=== PATIENT | male | born 1945 | race Caucasian/White ===

== ENCOUNTER 2016-08-21 08:48 | Emergency (ER) | payer MEDICARE, OTHER ==
[2016-08-21 08:55] VITALS: BP 131/59
--- NOTE | 2016-08-21 09:11 | ED Physician Documentation ---
PD HPI URI - Stated complaint Stated Complaint: COUGH - Chief complaint Chief Complaint: Resp - History obtained from History obtained from: Patient, Family - History of Present Illness Timing - onset: How many days ago (4) Timing duration: Days (4) Timing details: Gradual onset, Still present Associated symptoms: Nasal congestion, Rhinorrhea, Productive cough, Dyspnea. No: Fever Contributing factors: COPD / asthma Improves by: Rest, MDI/nebulizer Worsened by: Activity Similar symptoms before: Diagnosis (COPD) Recently seen: Clinic (Seen by the dermatology clinic and put on medication for a redness on his chest.) - Additional information Additional information: 71 y/o male with a history of COPD has began to have coughing since the beginning of July. He had to get his inhaler refilled as it and he was not using it. He has been using it up to 3 times per day. He has a cough productive of mostly clear and sometimes colored sputum and he has developed pain in both ears in the past 2 days. Review of Systems Constitutional: denies: Fever Eyes: denies: Decreased vision Ears: reports: Ear pain Nose: reports: Rhinorrhea / runny nose, Congestion Throat: denies: Sore throat Cardiac: denies: Chest pain / pressure, Palpitations Respiratory: reports: Dyspnea, Cough GI: denies: Abdominal Pain, Nausea, Vomiting : denies: Dysuria Skin: reports: Rash Musculoskeletal: denies: Neck pain PD PAST MEDICAL HISTORY - Past Medical History Past Medical History: Yes Cardiovascular: Hypertension, High cholesterol Neuro: Peripheral neuropathy Endocrine/Autoimmune: Type 2 diabetes - Past Surgical History Past Surgical History: Yes Cardiovascular: Coronary stent HEENT: Cataracts - Present Medications Home Medications: Ambulatory Orders Medication Instructions Recorded Confirmed Aspirin [Aspir 81] 81 mg PO DAILY 11/07/12 08/21/16 Carvedilol [Coreg] 25 mg PO BID 11/07/12 08/21/16 Clonidine HCl [Kapvay] 0.1 mg PO DAILY 11/07/12 08/21/16 DULoxetine [Cymbalta] 60 mg PO DAILY 11/07/12 08/21/16 Furosemide [Lasix] 40 mg PO QAM 11/07/12 08/21/16 Levothyroxine [Synthroid] 25 mcg PO QDAC 11/07/12 08/21/16 Loratadine [Children's 10 mg PO DAILY 11/07/12 08/21/16 Clear-Atadine] Losartan Potassium [Cozaar] 50 mg PO DAILY 11/07/12 08/21/16 Omeprazole [PriLOSEC] 20 mg PO DAILY 11/07/12 08/21/16 Potassium Chloride 20 meq PO TITR 11/07/12 08/21/16 Albuterol [Ventolin Hfa] 2 puffs INH Q4H PRN 04/01/15 08/21/16 Gabapentin 1,200 mg ORAL QPM 04/01/15 08/21/16 HYDROcod/ACETAM 5/325 [Vicodin 1 - 2 tab ORAL Q4H PRN 04/01/15 08/21/16 5/325] amLODIPine [Norvasc] 5 mg ORAL DAILY 04/01/15 08/21/16 Atorvastatin [Lipitor] 40 mg PO DAILY 05/29/15 08/21/16 Insulin Glargine,Hum.rec.anlog 70 units SQ DAILY 05/29/15 08/21/16 [Lantus] diazePAM [Valium] 5 mg PO TID PRN #15 tablet 05/29/15 08/21/16 Azithromycin [Zithromax] 250 mg PO DAILY #6 tablet 08/21/16 predniSONE [Deltasone] 10 mg PO DAILY #26 tablet 08/21/16 - Allergies Allergies/Adverse Reactions: Allergies Allergy/AdvReac Type Severity Reaction Status Date / Time pregabalin [From Lyrica] Allergy Intermediate unknown Verified 11/19/15 15:09 simvastatin [From Zocor] Allergy Intermediate Nausea Verified 11/19/15 15:09 sulfamethoxazole Allergy Intermediate unknown Verified 11/19/15 15:09 [From Septra] trimethoprim [From Septra] Allergy Intermediate unknown Verified 11/19/15 15:09 tetracycline [Tetracycline] Allergy Rash Verified 11/19/15 15:09 - Social History Does the pt smoke?: No Smoking Status: Former smoker Does the pt drink ETOH?: No Does the pt have substance abuse?: No - Immunizations Immunizations are current?: Yes - POLST Patient has POLST: No PD ED PE NORMAL - Vitals Vital signs reviewed: Yes (normal ) - General General: Alert and oriented X 3, No acute distress, Well developed/nourished - HEENT HEENT: Atraumatic, PERRL, EOMI, Other (both TM's are inflamed in the attic and the right more so than the left. mucous membranes are dry. ) - Neck Neck: Supple, no meningeal sign, No bony TTP - Cardiac Cardiac: RRR, No murmur - Respiratory Respiratory: No respiratory distress, Other (diminished breath sounds bilaterally ) - Derm Derm: Normal color, Warm and dry, No rash - Extremities Extremities: No deformity - Neuro Neuro: No motor deficit, No sensory deficit - Psych Psych: Normal mood, Normal affect Results - Vitals Vitals: Vital Signs - 24 hr 08/21/16 08:52 Temperature 36.0 C L Heart Rate 87 Respiratory 22 Rate Blood Pressure 131/59 H O2 Saturation 100 Oxygen O2 Source Room air PD MEDICAL DECISION MAKING - ED course Complexity details: reviewed old records, considered differential, d/w patient, d/w family ED course: 71 y/o male with a history of COPD has developed a cough and shortness of breath. He does not usually have to use his inhaler much and he has started to use it again. On exam today he has some wheeze and BOM. He is given an script for prednisone and zithromax. Departure - Departure Disposition: 01 Home, Self Care Clinical Impression: COPD exacerbation Otitis media Qualifiers: Otitis media type: suppurative Laterality: bilateral Chronicity: acute Recurrence: not specified as recurrent Spontaneous tympanic membrane rupture: without spontaneous rupture Qualified Code(s): H66.003 - Acute suppurative otitis media without spontaneous rupture of ear drum, bilateral Condition: Stable Instructions: ED Otitis Media Acute Adult, ED COPD Flare Follow-Up: Valeria Cabrales MD [Primary Care Provider] - Prescriptions: predniSONE [Deltasone] 10 mg PO DAILY #26 tablet Azithromycin [Zithromax] 250 mg PO DAILY #6 tablet
== END 2016-08-21 09:22 | disposition home or self-care (01) ==
LOC: ED 08:48
DX: J44.1 Chronic obstructive pulmonary disease with (acute) exacerbation (principal); H66.003 Acute suppurative otitis media without spontaneous rupture of ear drum, bilateral; I10 Essential (primary) hypertension; E11.9 Type 2 diabetes mellitus without complications; Z79.4 Long term (current) use of insulin; Z79.82 Long term (current) use of aspirin; Z87.891 Personal history of nicotine dependence
CPT/HCPCS: 99283; 99284

== ENCOUNTER 2016-08-24 07:50 | Emergency (ER) | payer MEDICARE, OTHER ==
[2016-08-24] MEDS ORDERED: IPRATROPIUM/ALBUTEROL 3 ML NEB INH STA (08:53)
[2016-08-24] MEDS ORDERED: BENZONATATE 100 MG CAPSULE PO STA (08:53)
[2016-08-24] MEDS ORDERED: BENZONATATE 100 MG CAPSULE PO ONE (08:56)
--- NOTE | 2016-08-24 09:01 | ED Physician Documentation ---
PD HPI DYSPNEA - Stated complaint Stated Complaint: CONGESTION/COUGH/SOA - Chief complaint Chief Complaint: Resp - History obtained from History obtained from: Patient, Family - History of Present Illness Timing - onset: How many weeks ago (4) Timing - onset during: Rest Timing - duration: Weeks (4) Timing - details: Gradual onset, Still present Inciting event(s): URI Improved by: Inhaler/neb, Steroids Worsened by: Coughing Associated symptoms: Cough, Wheezing, Chest pain / discomfort Similar symptoms before: Diagnosis (COPD) Recently seen: Emergency Dept (Seen in the ED 5 days ago with this cough.) - Additional information Additional information: 71 y/o male with history of COPD with a recent exacerbation related to URI with OM has not responded to a course of prednisone and zithromax and his primary complaint today is the cough itself. He has not been able to sleep and and he has not been able to breath well. He did use his neb machine. Review of Systems Constitutional: denies: Fever Eyes: denies: Decreased vision Ears: reports: Ear pain Nose: reports: Rhinorrhea / runny nose, Congestion Throat: denies: Sore throat Cardiac: reports: Chest pain / pressure, Pedal edema. denies: Palpitations Respiratory: reports: Dyspnea, Cough, Wheezing GI: denies: Abdominal Pain, Nausea, Vomiting : denies: Dysuria, Frequency Skin: denies: Rash Musculoskeletal: denies: Neck pain, Back pain PD PAST MEDICAL HISTORY - Past Medical History Past Medical History: Yes Cardiovascular: Hypertension, High cholesterol Neuro: Peripheral neuropathy Endocrine/Autoimmune: Type 2 diabetes - Past Surgical History Past Surgical History: Yes Cardiovascular: Coronary stent HEENT: Cataracts - Present Medications Home Medications: Ambulatory Orders Medication Instructions Recorded Confirmed Aspirin [Aspir 81] 81 mg PO DAILY 11/07/12 08/24/16 Carvedilol [Coreg] 25 mg PO BID 11/07/12 08/24/16 Clonidine HCl [Kapvay] 0.1 mg PO DAILY 11/07/12 08/24/16 DULoxetine [Cymbalta] 60 mg PO DAILY 11/07/12 08/24/16 Furosemide [Lasix] 40 mg PO QAM 11/07/12 08/24/16 Levothyroxine [Synthroid] 25 mcg PO QDAC 11/07/12 08/24/16 Loratadine [Children's 10 mg PO DAILY 11/07/12 08/24/16 Clear-Atadine] Losartan Potassium [Cozaar] 50 mg PO DAILY 11/07/12 08/24/16 Omeprazole [PriLOSEC] 20 mg PO DAILY 11/07/12 08/24/16 Potassium Chloride 20 meq PO TITR 11/07/12 08/24/16 Albuterol [Ventolin Hfa] 2 puffs INH Q4H PRN 04/01/15 08/24/16 Gabapentin 1,200 mg ORAL QPM 04/01/15 08/24/16 HYDROcod/ACETAM 5/325 [Vicodin 1 - 2 tab ORAL Q4H PRN 04/01/15 08/24/16 5/325] amLODIPine [Norvasc] 5 mg ORAL DAILY 04/01/15 08/24/16 Atorvastatin [Lipitor] 40 mg PO DAILY 05/29/15 08/24/16 Insulin Glargine,Hum.rec.anlog 70 units SQ DAILY 05/29/15 08/24/16 [Lantus] diazePAM [Valium] 5 mg PO TID PRN #15 tablet 05/29/15 08/24/16 Azithromycin [Zithromax] 250 mg PO DAILY #6 tablet 08/21/16 08/24/16 predniSONE [Deltasone] 10 mg PO DAILY #26 tablet 08/21/16 08/24/16 Amox/Clav 875/125 [Augmentin] 1 each PO Q12H #20 tablet 08/24/16 Benzonatate [Tessalon] 100 - 200 mg PO TID PRN #20 capsule 08/24/16 HYDROcod/ACETAM 5/325 [[place] 5/325] 1 - 2 ea PO Q6H PRN #15 tablet 08/24/16 Ipratropium/Albuterol [Duoneb] 3 ml INH Q6H PRN #20 neb 08/24/16 - Allergies Allergies/Adverse Reactions: Allergies Allergy/AdvReac Type Severity Reaction Status Date / Time pregabalin [From Lyrica] Allergy Intermediate unknown Verified 11/19/15 15:09 simvastatin [From Zocor] Allergy Intermediate Nausea Verified 11/19/15 15:09 sulfamethoxazole Allergy Intermediate unknown Verified 11/19/15 15:09 [From Septra] trimethoprim [From Septra] Allergy Intermediate unknown Verified 11/19/15 15:09 tetracycline [Tetracycline] Allergy Rash Verified 11/19/15 15:09 - Social History Does the pt smoke?: No Smoking Status: Former smoker Does the pt drink ETOH?: No Does the pt have substance abuse?: No - Immunizations Immunizations are current?: Yes - POLST Patient has POLST: No PD ED PE NORMAL - Vitals Vital signs reviewed: Yes (hypertensive ) - General General: Well developed/nourished, Other (The patient has some resting tachypnea ) - HEENT HEENT: Atraumatic, PERRL, EOMI, Other (both TM's are still erythematous with indisitnct landmarks. ) - Neck Neck: Supple, no meningeal sign, No bony TTP - Cardiac Cardiac: RRR, No murmur - Respiratory Respiratory: No respiratory distress, Other (diminished breath sounds with scattered wheezes) - Abdomen Abdomen: Soft, Non tender, Other (protuberant) - Back Back: No CVA TTP, No spinal TTP - Derm Derm: Normal color, Warm and dry, No rash - Extremities Extremities: No deformity, Other (there is trace edema bilaterally ) - Neuro Neuro: No motor deficit, No sensory deficit - Psych Psych: Normal mood, Normal affect Results - Vitals Vitals: Vital Signs - 24 hr 08/24/16 08/24/16 08/24/16 07:57 09:12 10:07 Temperature 36.4 C L Heart Rate 90 90 85 Respiratory 24 22 17 Rate Blood Pressure 157/92 H 144/79 H O2 Saturation 94 98 08/24/16 10:59 Temperature Heart Rate 86 Respiratory 19 Rate Blood Pressure 151/93 H O2 Saturation 97 Oxygen O2 Source Room air - Rads (name of study) 2 veiw chest Radiology: Prelim report reviewed (IMPRESSION: Normal 2-view chest radiography) , EMP read indepedently, See rad report PD MEDICAL DECISION MAKING - ED course Complexity details: reviewed old records, reviewed results, re-evaluated patient , considered differential, d/w patient, d/w family ED course: 71 y/o male with a cough and congestion and hx of COPD is not responding to treatment with zithromax and prednisone and has a cough that is hurting his chest and interfering with his sleep. On exam his ears do not appear improved, consistent with a treatment failure and his chest wall is tender. He is given a duo neb treatment and tessalon and his CXR is without infiltrate. He will need a change in antibiotic and pain medication. He is given morphine for the chest wall pain and this does help. Departure - Departure Disposition: 01 Home, Self Care Clinical Impression: COPD exacerbation Otitis media Qualifiers: Otitis media type: suppurative Laterality: bilateral Chronicity: acute Recurrence: not specified as recurrent Spontaneous tympanic membrane rupture: without spontaneous rupture Qualified Code(s): H66.003 - Acute suppurative otitis media without spontaneous rupture of ear drum, bilateral Condition: Stable Instructions: ED Otitis Media Acute Adult, ED COPD Flare Follow-Up: Valeria Cabrales MD [Primary Care Provider] - Prescriptions: Amox/Clav 875/125 [Augmentin] 1 each PO Q12H #20 tablet Ipratropium/Albuterol [Duoneb] 3 ml INH Q6H PRN #20 neb PRN Reason: soa HYDROcod/ACETAM 5/325 [[place] 5/325] 1 - 2 ea PO Q6H PRN #15 tablet PRN Reason: Pain Benzonatate [Tessalon] 100 - 200 mg PO TID PRN #20 capsule PRN Reason: Cough Discharge Date/Time: 08/24/16 11:00
[2016-08-24] MEDS ORDERED: IPRATROPIUM/ALBUTEROL 3 ML NEB INH ONE (09:04)
--- NOTE | 2016-08-24 09:16 | XRAY Preliminary Report ---
Exam: XR Chest 2 View PA/LAT IMPRESSION: Normal 2-view chest radiography. [facility] SITE ID: [id number]
--- NOTE | 2016-08-24 09:19 | XRAY Report ---
EXAM: CHEST RADIOGRAPHY EXAM DATE: 08/24/2016 09:08 AM. CLINICAL HISTORY: Cough dyspnea. COMPARISON: 05/29/2015. TECHNIQUE: 2 views. FINDINGS: Lungs/Pleura: No focal opacities evident. No pleural effusion. No pneumothorax. Normal volumes. Mediastinum: Heart and mediastinal contours are unremarkable. Other: None. IMPRESSION: Normal 2-view chest radiography. [facility] Referring Provider Line: [phone] SITE ID: [id number]
[2016-08-24] MEDS ORDERED: MORPHINE 2 MG/ML SYRINGE IM STA (09:55)
[2016-08-24] MEDS ORDERED: MORPHINE 10 MG/ML VIAL ONE (10:04)
[2016-08-24 10:59] VITALS: BP 151/93
== END 2016-08-24 11:00 | disposition home or self-care (01) ==
LOC: ED 07:50
DX: J44.1 Chronic obstructive pulmonary disease with (acute) exacerbation (principal); H66.003 Acute suppurative otitis media without spontaneous rupture of ear drum, bilateral; J06.9 Acute upper respiratory infection, unspecified; I10 Essential (primary) hypertension; E11.42 Type 2 diabetes mellitus with diabetic polyneuropathy; Z95.5 Presence of coronary angioplasty implant and graft; Z79.82 Long term (current) use of aspirin; Z79.4 Long term (current) use of insulin; Z87.891 Personal history of nicotine dependence
CPT/HCPCS: 71020; 94640; 94664; 96372; 99283; 99284; A9270; J7620

== ENCOUNTER 2016-09-14 11:46 | Outpatient (CLI) | payer MEDICARE, OTHER ==
--- NOTE | 2016-09-14 13:40 | XRAY Report ---
TWO VIEW LUMBAR SPINE: 09/14/2016 CLINICAL INDICATION: Pain. FINDINGS: Frontal and lateral views of the lumbar spine are compared to previous films of 02/09/2009 . There is progression of degenerative disk and facet disease, with disk space narrowing worst at L5-S1 . There is no evidence of acute fracture or subluxation. Vascular calcifications are noted. The bowel gas pattern appears unremarkable. IMPRESSION: PROGRESSION OF DEGENERATIVE DISK AND FACET DISEASE. NO EVIDENCE OF FRACTURE. JOB #: [id number] EXT JOB #:[id number]
== END 2016-09-14 11:47 | disposition home or self-care (01) ==
LOC: DI 11:46
DX: M51.36 Other intervertebral disc degeneration, lumbar region (principal); M47.896 Other spondylosis, lumbar region
CPT/HCPCS: 72100

== ENCOUNTER 2016-09-17 11:07 | Outpatient (CLI) | payer MEDICARE, OTHER ==
--- NOTE | 2016-09-17 16:48 | XRAY Report ---
CHEST PA AND LATERAL: 09/17/2016 CLINICAL HISTORY: The patient has had a cough times one month. COMPARISON: 05/29/2015 and 08/24/2016. FINDINGS: Mild anterior spurring is suggested in the thoracic spine. Normal cardiac size is seen with minor vascular calcification in the aortic arch. Mild pleural thickening is seen silhouetting the anterior aspect of the 4th, 5th and 6th ribs. This m inimal pleural thickening silhouetting these ribs is nonspecific. Occasionally it can be a subtle sig n of prior asbestos exposure. Minimal interstitial parenchymal disease is once again noted in the mid to lower lung guo in association with mild elevation of each hemidiaphragm. The findings are cons istent with mild atelectasis and/or minimal scarring. IMPRESSION: 1. MILD INCREASE IN NONSPECIFIC PLEURAL THICKENING ACCOMPANYING THE ANTERIOR ASPECTS OF THE RIBS BILA TERALLY. 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 2. MINOR INTERSTITIAL PARENCHYMAL DISEASE IS ONCE AGAIN SEEN IN THE LOWER LOBES AND MID LUNG GUO C ONSISTENT WITH MILD ATELECTASIS AND/OR SCARRING. THE FINDINGS ARE UNCHANGED COMPARED TO PRECEDING EXAM DATED 08/24/2016. JOB #: [id number] EXT JOB #:[id number]
== END 2016-09-17 11:08 | disposition home or self-care (01) ==
LOC: DI 11:07
PROVIDERS: ATTEND Internal Medicine
DX: R05 Cough (principal)
CPT/HCPCS: 71020

== ENCOUNTER 2016-09-19 08:00 | Emergency (ER) | payer MEDICARE, OTHER ==
[2016-09-19] MEDS ORDERED: INSULIN REGULAR HUMAN 100 UNIT/1 ML 10 ML MDV IVP STA (08:26)
[2016-09-19] MEDS ORDERED: SODIUM CHLORIDE 0.9% 1,000 ML IV ONE ×2 (08:26→09:47)
[2016-09-19] MEDS ORDERED: MORPHINE 2 MG/ML SYRINGE IVP STA ×2 (08:27→09:53)
--- NOTE | 2016-09-19 08:30 | ED Physician Documentation ---
PD HPI CHEST PAIN - Stated complaint Stated Complaint: CHEST DISCOMFORT/COUGH - Chief complaint Chief Complaint: Resp - History obtained from History obtained from: Patient - History of Present Illness Timing - onset: Today Timing - onset during: Rest Timing - duration: Hours Timing - details: Gradual onset, Still present Quality: Sharp, Pain Location: Left chest Radiation: No: Jaw, Neck, Back, Abdominal, Left upper extremity, Right upper extremity Improved by: Rest Worsened by: Inspiration, Movement, Palpation, Position Associated symptoms: Shortness of air Similar symptoms before: Diagnosis (chest wall tenderness) Recently seen: Clinic, Emergency Dept - Additional information Additional information: 71 y/o male diabetic with COPD has had a cough and congestion last month with OM has continued to have trouble with secretions. He has cleared his ears up and is just finishing a course of prednisone. Today he has chest wall pain and appears to dehydrated complaining of a dry mouth and dizziness. Review of Systems Constitutional: reports: Fatigue. denies: Fever, Chills, Myalgias Eyes: denies: Decreased vision Ears: denies: Ear pain Nose: denies: Rhinorrhea / runny nose, Congestion Throat: denies: Sore throat Cardiac: reports: Chest pain / pressure. denies: Palpitations Respiratory: reports: Dyspnea, Cough GI: denies: Abdominal Pain, Nausea, Vomiting : denies: Dysuria, Frequency Skin: denies: Rash Musculoskeletal: denies: Neck pain, Back pain, Extremity pain, Extremity swelling Neurologic: denies: Generalized weakness, Focal weakness, Numbness PD PAST MEDICAL HISTORY - Past Medical History Cardiovascular: Hypertension, High cholesterol Neuro: Peripheral neuropathy Endocrine/Autoimmune: Type 2 diabetes - Past Surgical History Past Surgical History: Yes Cardiovascular: Coronary stent HEENT: Cataracts - Present Medications Home Medications: Ambulatory Orders Medication Instructions Recorded Confirmed Aspirin [Aspir 81] 81 mg PO DAILY 11/07/12 09/19/16 Carvedilol [Coreg] 25 mg PO BID 11/07/12 09/19/16 Clonidine HCl [Kapvay] 0.1 mg PO DAILY 11/07/12 09/19/16 DULoxetine [Cymbalta] 60 mg PO DAILY 11/07/12 09/19/16 Furosemide [Lasix] 40 mg PO QAM 11/07/12 09/19/16 Levothyroxine [Synthroid] 25 mcg PO QDAC 11/07/12 09/19/16 Loratadine [Children's 10 mg PO DAILY 11/07/12 09/19/16 Clear-Atadine] Losartan Potassium [Cozaar] 50 mg PO DAILY 11/07/12 09/19/16 Omeprazole [PriLOSEC] 20 mg PO DAILY 11/07/12 09/19/16 Potassium Chloride 20 meq PO TITR 11/07/12 09/19/16 Albuterol [Ventolin Hfa] 2 puffs INH Q4H PRN 04/01/15 09/19/16 Gabapentin 1,200 mg ORAL QPM 04/01/15 09/19/16 HYDROcod/ACETAM 5/325 [Vicodin 1 - 2 tab ORAL Q4H PRN 04/01/15 09/19/16 5/325] amLODIPine [Norvasc] 5 mg ORAL DAILY 04/01/15 09/19/16 Atorvastatin [Lipitor] 40 mg PO DAILY 05/29/15 09/19/16 Insulin Glargine,Hum.rec.anlog 100 units SQ BID 05/29/15 09/19/16 [Lantus] diazePAM [Valium] 5 mg PO TID PRN #15 tablet 05/29/15 09/19/16 Azithromycin [Zithromax] 250 mg PO DAILY #6 tablet 08/21/16 09/19/16 predniSONE [Deltasone] 10 mg PO DAILY #26 tablet 08/21/16 09/19/16 Amox/Clav 875/125 [Augmentin] 1 each PO Q12H #20 tablet 08/24/16 09/19/16 Benzonatate [Tessalon] 100 - 200 mg PO TID PRN #20 capsule 08/24/16 09/19/16 HYDROcod/ACETAM 5/325 [[place] 5/325] 1 - 2 ea PO Q6H PRN #15 tablet 08/24/16 Ipratropium/Albuterol [Duoneb] 3 ml INH Q6H PRN #20 neb 08/24/16 09/19/16 Amox/Clav 875/125 [Augmentin] 1 each PO Q12H #28 tablet 09/19/16 Hydrocodone/Acetaminophen 1 - 2 each PO Q6HR PRN #20 tablet 09/19/16 [Hydrocodon-Acetaminophn 10-325] Promethazine HCl/Codeine 5 - 10 ml PO Q4HR PRN #240 ml 09/19/16 [Prometh-Codein 6.25-10 mg/5 ml] - Allergies Allergies/Adverse Reactions: Allergies Allergy/AdvReac Type Severity Reaction Status Date / Time pregabalin [From Lyrica] Allergy Intermediate unknown Verified 09/19/16 08:06 simvastatin [From Zocor] Allergy Intermediate Nausea Verified 09/19/16 08:06 sulfamethoxazole Allergy Intermediate unknown Verified 09/19/16 08:06 [From Septra] trimethoprim [From Septra] Allergy Intermediate unknown Verified 09/19/16 08:06 tetracycline [Tetracycline] Allergy Rash Verified 09/19/16 08:06 - Social History Does the pt smoke?: No Smoking Status: Former smoker Does the pt drink ETOH?: No Does the pt have substance abuse?: No - Immunizations Immunizations are current?: Yes - POLST Patient has POLST: No PD ED PE NORMAL - Vitals Vital signs reviewed: Yes (hypertensive ) - General General: Alert and oriented X 3, Well developed/nourished - HEENT HEENT: Atraumatic, PERRL, EOMI, Ears normal, Other (dry mucous membranes ) - Neck Neck: Supple, no meningeal sign, No bony TTP - Cardiac Cardiac: RRR, No murmur - Respiratory Respiratory: No respiratory distress, Clear bilaterally, Other (There is specific chest wall tenderness to the left chest wall) - Abdomen Abdomen: Soft, Non tender - Back Back: No CVA TTP, No spinal TTP - Derm Derm: Normal color, Warm and dry, No rash - Extremities Extremities: No deformity, Other (There is woody induration to the calves bilaterally with post inflamitory hyperpigmentation. ) - Neuro Neuro: No motor deficit, No sensory deficit - Psych Psych: Normal mood, Normal affect Results - Vitals Vitals: Vital Signs - 24 hr 09/19/16 09/19/16 09/19/16 08:03 10:01 13:06 Temperature 36.1 C L Heart Rate 93 83 77 Respiratory 24 18 16 Rate Blood Pressure 176/101 H 150/92 H 158/87 H O2 Saturation 99 95 95 09/19/16 16:43 Temperature 36.3 C L Heart Rate 76 Respiratory 16 Rate Blood Pressure 160/88 H O2 Saturation 95 Oxygen O2 Source Room air - EKG (time done) 0815 Rate: Rate (enter#) (88) Other comments: Other comments (early transition) Compare to prior EKG: Changed from prior EKG (rate has decreased since tracing of 05-29-15) Computer interpretation: Agree with computer - Labs Labs: Laboratory Tests 09/19/16 09/19/16 09/19/16 08:10 08:30 08:30 WBC 8.4 RBC 4.04 L Hgb 12.6 L Hct 37.1 L MCV 91.9 MCH 31.3 H MCHC 34.0 RDW 14.1 Plt Count 191 MPV 7.3 L Neut # 6.5 Lymph # 1.2 L [place] # 0.7 Eos # 0.0 Baso # 0.0 Absolute Nucleated RBC 0.00 Nucleated RBCs 0.0 D-Dimer Sodium 134 L Potassium 4.1 Chloride 98 L Carbon Dioxide 25 Anion Gap 11.0 BUN 28 H Creatinine 1.6 H Estimated GFR (MDRD) 43 L Glucose 396 H POC Whole Bld Glucose 410 H Calcium 9.3 Total Bilirubin 0.6 AST 53 H ALT 71 H Alkaline Phosphatase 130 H Troponin I Total Protein 7.6 Albumin 3.8 Globulin 3.8 Albumin/Globulin Ratio 1.0 Lipase 50 09/19/16 09/19/16 09/19/16 08:30 09:52 11:15 WBC RBC Hgb Hct MCV MCH MCHC RDW Plt Count MPV Neut # Lymph # [place] # Eos # Baso # Absolute Nucleated RBC Nucleated RBCs D-Dimer Sodium Potassium Chloride Carbon Dioxide Anion Gap BUN Creatinine Estimated GFR (MDRD) Glucose POC Whole Bld Glucose 254 H 185 H Calcium Total Bilirubin AST ALT Alkaline Phosphatase Troponin I < 0.04 Total Protein Albumin Globulin Albumin/Globulin Ratio Lipase 09/19/16 14:48 WBC RBC Hgb Hct MCV MCH MCHC RDW Plt Count MPV Neut # Lymph # [place] # Eos # Baso # Absolute Nucleated RBC Nucleated RBCs D-Dimer 225.0 Sodium Potassium Chloride Carbon Dioxide Anion Gap BUN Creatinine Estimated GFR (MDRD) Glucose POC Whole Bld Glucose Calcium Total Bilirubin AST ALT Alkaline Phosphatase Troponin I Total Protein Albumin Globulin Albumin/Globulin Ratio Lipase - Rads (name of study) 2 veiw chest Radiology: Prelim report reviewed (Impression: Negative two-view chest radiography for acute findings.), EMP read indepedently, See rad report CT chest without Radiology: Prelim report reviewed (Impression: No acute process identified to explain cough and left-sided chest pain.), EMP read indepedently, See rad report Procedures - IVC sono (time) 0825 Bedside IVC sono: IVC measures (cm) (cannot visulaize), Dehydration PD MEDICAL DECISION MAKING - ED course Complexity details: reviewed old records, reviewed results, re-evaluated patient , considered differential, d/w patient ED course: 71 y/o male with left chest wall tenderness with coughing paroxysms is dehydrated with diabetes out of control this morning. He does appear dry. His legs look like wood. He is given IV saline and insulin and morphine. He has a lot of pain in the chest wall and he continues to have a cough productive of sputum. Over the past month he has had a course of zithromax for OM that did resulted in a treatment failure and he was switched to augmentin and this did help clear up the ears as well as the phlem but he continued to have cough and dyspena and he was given a second course of prednisone. He indicates that of all the medications he took he felt the antibiotic helped the most with the phlem and the cough. We will put him on an extended course of augmentin for sinusitis and drainage and change his pain medication to vicoden 10's as he is getting inadequate pain relief and has been using too much tylenol. The patient is getting inadequate pain relief with all measures used and he is given morphine, toradal and dilaudid IV and he is given IV decadron as well and he complains of the persistent cough. Dr. Benitez is consulted in the case by phone and recommends CT angio of the chest to rule out intra chest pathology as a cause for the patients pain and the patient is not able to undergo CT angio because of his chronic kidney disease and the study is done without contrast and the d-dimer is negative. With all efforts made the patient is some better on discharge. Departure - Departure Disposition: 01 Home, Self Care Clinical Impression: Chest wall pain, Dehydration Condition: Stable Instructions: ED Strain Chest Wall, ED Dehydration Follow-Up: Valeria Cabrales MD [Primary Care Provider] - Prescriptions: Promethazine HCl/Codeine [Prometh-Codein 6.25-10 mg/5 ml] 5 - 10 ml PO Q4HR PRN #240 ml PRN Reason: Cough Hydrocodone/Acetaminophen [Hydrocodon-Acetaminophn 10-325] 1 - 2 each PO Q6HR PRN #20 tablet PRN Reason: Pain Amox/Clav 875/125 [Augmentin] 1 each PO Q12H #28 tablet Discharge Date/Time: 09/19/16 16:43
[2016-09-19] MEDS ORDERED: MORPHINE 2 MG/ML SYRINGE ONE (08:36)
[2016-09-19] MEDS ORDERED: INSULIN REGULAR HUMAN 100 UNIT/1 ML 10 ML MDV ONE (08:37)
[2016-09-19 08:39] LABS: BASOPHILS % (AUTO) 0.4 %; EOSINOPHILS % (AUTO) 0.3 %; HCT - HEMATOCRIT 37.1 % (42.0-52.0); HGB - HEMOGLOBIN 12.6 g/dL (14.0-18.0); LYMPHOCYTES # (AUTO) 1.2 10^3/uL (1.5-3.5); LYMPHOCYTES % (AUTO) 14.2 %; MEAN CORPUSCULAR HEMOGLOBIN 31.3 pg (27.0-31.0); MEAN CORPUSCULAR VOLUME 91.9 fL (80.0-94.0); MEAN PLATELET VOLUME 7.3 fL (7.4-11.4); MONOCYTES # (AUTO) 0.7 10^3/uL (0.0-1.0); MONOCYTES % (AUTO) 7.9 %; NEUTROPHILS # (AUTO) 6.5 10^3/uL (1.5-6.6); NEUTROPHILS % (AUTO) 77.2 %; RED BLOOD COUNT 4.04 10^6/uL (4.70-6.10); RED CELL DISTRIBUTION WIDTH 14.1 % (12.0-15.0); UNCORRECTED WHITE BLOOD COUNT 8.4 x10^3/uL; WHITE BLOOD COUNT 8.4 x10^3/uL (4.8-10.8)
[2016-09-19 08:52] LABS: BILIRUBIN,TOTAL 0.6 mg/dL (0.2-1.0); CALCIUM 9.3 mg/dL (8.5-10.3); CREATININE 1.6 mg/dL (0.6-1.2); POTASSIUM 4.1 mmol/L (3.5-5.0); TOTAL PROTEIN 7.6 g/dL (6.7-8.2)
[2016-09-19] MEDS ORDERED: MORPHINE 10 MG/ML VIAL ONE (09:55)
[2016-09-19] MEDS ORDERED: diphenhydrAMINE INJ 50 MG/ML VIAL IVP STA (11:15)
--- NOTE | 2016-09-19 12:14 | XRAY Preliminary Report ---
Exam: XR Chest 2 View PA/LAT IMPRESSION: Negative 2-view chest radiography for acute findings. [facility] SITE ID: [id number]
--- NOTE | 2016-09-19 12:17 | XRAY Report ---
EXAM: CHEST RADIOGRAPHY EXAM DATE: 09/19/2016 11:33 AM. CLINICAL HISTORY: Left sided chest pain . COMPARISON: 09/17/2016. TECHNIQUE: 2 views. FINDINGS: Lungs/Pleura: No focal opacities evident. No pleural effusion. No pneumothorax. Normal volumes. Mediastinum: Heart size accentuated by the AP portable technique Other: Degenerative change in the spine. IMPRESSION: Negative 2-view chest radiography for acute findings. [facility] Referring Provider Line: [phone] SITE ID: [id number]
[2016-09-19] MEDS ORDERED: KETOROLAC 60 MG/2 ML VIAL IVP STA (12:19)
[2016-09-19] MEDS ORDERED: KETOROLAC 30 MG/ML VIAL ONE (12:28)
[2016-09-19] MEDS ORDERED: HYDROmorphone 1 MG/ML SYRINGE IVP STA (13:26)
[2016-09-19] MEDS ORDERED: ONDANSETRON 4 MG/2 ML VIAL IVP STA (13:26)
[2016-09-19] MEDS ORDERED: HYDROmorphone 1 MG/ML SYRINGE ONE (13:43)
[2016-09-19] MEDS ORDERED: ONDANSETRON 4 MG/2 ML VIAL ONE (13:44)
--- NOTE | 2016-09-19 14:41 | CT Preliminary Report ---
Exam: CT Chest W/O IMPRESSION: No acute process identified to explain cough and left-sided chest pain. [facility] SITE ID: [id number]
--- NOTE | 2016-09-19 14:43 | CT Report ---
EXAM: CT CHEST EXAM DATE: 09/19/2016 02:04 PM. CLINICAL HISTORY: Persistent cough. Left-sided chest pain. COMPARISONS: Chest radiograph, same day.. TECHNIQUE: Routine helical CT imaging was performed through the chest. IV contrast: None. Reconstruct ions: Coronal and sagittal. In accordance with CT protocol optimization, one or more of the following dose reduction techniques w ere utilized for this exam: automated exposure control, adjustment of mA and/or KV based on patient s ize, or use of iterative reconstructive technique. FINDINGS: Thyroid Gland: Unremarkable as visualized. Lungs/Pleura: Mild linear atelectasis versus scarring in the posterior right lower lobe base. No foca l consolidation, pleural effusion, or pneumothorax. Mediastinum: Heart size is normal. No pericardial effusion. Mild atherosclerotic calcifications withi n the aorta. Variant aortic arch anatomy, with common origin of the innominate and left common caroti d arteries. No aortic aneurysm. No adenopathy. Bones: Old fracture deformities of the right anterior third and lateral fifth and sixth ribs. Degener ative changes within the spine. No acute bony abnormality. Visualized Abdomen: Tiny bilateral intrarenal calculi. Multiple left renal cortical cysts. Other: None. IMPRESSION: No acute process identified to explain cough and left-sided chest pain. [facility] Referring Provider Line: [phone] SITE ID: [id number]
[2016-09-19] MEDS ORDERED: DEXAMETHASONE 10 MG/ML VIAL IVP STA (15:01)
[2016-09-19] MEDS ORDERED: diphenhydrAMINE ELIXIR 25 MG/10 ML UDC PO STA (15:04)
[2016-09-19] MEDS ORDERED: DEXAMETHASONE 10 MG/ML VIAL ONE (15:10)
[2016-09-19] MEDS ORDERED: diphenhydrAMINE ELIXIR 25 MG/10 ML UDC PO ONE (15:10)
[2016-09-19 16:46] VITALS: BP 160/88
== END 2016-09-19 16:43 | disposition home or self-care (01) ==
LOC: ED 08:00
DX: R07.89 Other chest pain (principal); E86.0 Dehydration; E11.42 Type 2 diabetes mellitus with diabetic polyneuropathy; Z79.4 Long term (current) use of insulin; I10 Essential (primary) hypertension; J44.9 Chronic obstructive pulmonary disease, unspecified; E78.00 Pure hypercholesterolemia, unspecified; Z79.82 Long term (current) use of aspirin; Z87.891 Personal history of nicotine dependence
CPT/HCPCS: 36415; 71020; 71250; 80053; 83690; 84484; 85025; 85379; 93005; 96374; 96375; 96376; 99284; 99285; A9270; J1170; J1815

== ENCOUNTER 2016-09-22 09:14 | Emergency (ER) | payer MEDICARE, OTHER ==
[2016-09-22] MEDS ORDERED: SODIUM CHLORIDE 0.9% 1,000 ML IV ONE ×2 (09:42→10:03)
[2016-09-22] MEDS ORDERED: HYDROmorphone 1 MG/ML SYRINGE IVP STA (09:42)
[2016-09-22] MEDS ORDERED: ONDANSETRON 4 MG/2 ML VIAL IVP STA (09:42)
--- NOTE | 2016-09-22 09:45 | ED Physician Documentation ---
History of Present Illness - Stated complaint Stated Complaint: LT SIDE ABD/BACK PX - Chief complaint Chief Complaint: Abd Pain - History obtained from History obtained from: Patient, Family - History of Present Illness Timing: How many weeks ago (4) - Additonal information Additional information: 71 y/o male diabetic with COPD has had a cough and congestion for the past month. He was treated for OM, had a treatment failure and subsequently was placed on augmentin and improved and then had worsening and had a hard coughing paroxysm that initiated a severe pain in the left lower chest wall and a visit to the ED 2 days ago. The pain was bad enough that it required narcotic pain medication to manage and we had a hard time controlling his pain. He has been taking some vicoden for this and he has been changed to vicoden 10 HP. He has had a lot of phlem draining down his throat and causing a coughing paroxysm and this seems some better with a second course of augmentin started 2 days ago. He was not able to sleep last night and again had to sleep in his recliner. This morning he notes a bruise to the entire left side of the abdomen and continued pain. Review of Systems Constitutional: denies: Fever Eyes: denies: Decreased vision Ears: denies: Ear pain Nose: reports: Congestion Throat: reports: Other (post nasal drainage). denies: Sore throat Cardiac: reports: Chest pain / pressure. denies: Palpitations, Pedal edema, Calf pain Respiratory: reports: Cough. denies: Dyspnea GI: reports: Abdominal Pain, Nausea. denies: Vomiting, Constipation, Diarrhea : denies: Dysuria, Frequency Skin: denies: Rash Musculoskeletal: denies: Neck pain, Back pain, Extremity pain, Extremity swelling Neurologic: denies: Generalized weakness, Focal weakness, Numbness PD PAST MEDICAL HISTORY - Past Medical History Cardiovascular: Hypertension, High cholesterol Neuro: Peripheral neuropathy Endocrine/Autoimmune: Type 2 diabetes - Past Surgical History Past Surgical History: Yes Cardiovascular: Coronary stent HEENT: Cataracts - Present Medications Home Medications: Ambulatory Orders Medication Instructions Recorded Confirmed Aspirin [Aspir 81] 81 mg PO DAILY 11/07/12 09/22/16 Carvedilol [Coreg] 25 mg PO BID 11/07/12 09/22/16 Clonidine HCl [Kapvay] 0.1 mg PO DAILY 11/07/12 09/22/16 DULoxetine [Cymbalta] 60 mg PO DAILY 11/07/12 09/22/16 Furosemide [Lasix] 40 mg PO QAM 11/07/12 09/22/16 Levothyroxine [Synthroid] 25 mcg PO QDAC 11/07/12 09/22/16 Loratadine [Children's 10 mg PO DAILY 11/07/12 09/22/16 Clear-Atadine] Losartan Potassium [Cozaar] 50 mg PO DAILY 11/07/12 09/22/16 Omeprazole [PriLOSEC] 20 mg PO DAILY 11/07/12 09/22/16 Potassium Chloride 20 meq PO TITR 11/07/12 09/22/16 Albuterol [Ventolin Hfa] 2 puffs INH Q4H PRN 04/01/15 09/22/16 Gabapentin 1,200 mg ORAL QPM 04/01/15 09/22/16 HYDROcod/ACETAM 5/325 [Vicodin 1 - 2 tab ORAL Q4H PRN 04/01/15 09/22/16 5/325] amLODIPine [Norvasc] 5 mg ORAL DAILY 04/01/15 09/22/16 Atorvastatin [Lipitor] 40 mg PO DAILY 05/29/15 09/22/16 Insulin Glargine,Hum.rec.anlog 100 units SQ BID 05/29/15 09/22/16 [Lantus] diazePAM [Valium] 5 mg PO TID PRN #15 tablet 05/29/15 09/22/16 Azithromycin [Zithromax] 250 mg PO DAILY #6 tablet 08/21/16 09/22/16 predniSONE [Deltasone] 10 mg PO DAILY #26 tablet 08/21/16 09/22/16 Amox/Clav 875/125 [Augmentin] 1 each PO Q12H #20 tablet 08/24/16 09/22/16 Benzonatate [Tessalon] 100 - 200 mg PO TID PRN #20 capsule 08/24/16 09/22/16 HYDROcod/ACETAM 5/325 [[place] 5/325] 1 - 2 ea PO Q6H PRN #15 tablet 08/24/16 Ipratropium/Albuterol [Duoneb] 3 ml INH Q6H PRN #20 neb 08/24/16 09/22/16 Amox/Clav 875/125 [Augmentin] 1 each PO Q12H #28 tablet 09/19/16 09/22/16 Hydrocodone/Acetaminophen 1 - 2 each PO Q6HR PRN #20 tablet 09/19/16 09/22/16 [Hydrocodon-Acetaminophn 10-325] Promethazine HCl/Codeine 5 - 10 ml PO Q4HR PRN #240 ml 09/19/16 09/22/16 [Prometh-Codein 6.25-10 mg/5 ml] Benzonatate [Tessalon] 100 - 200 mg PO TID PRN #20 capsule 09/22/16 Oxycodone HCl/Acetaminophen 1 - 2 each PO Q6HR PRN #20 tablet 09/22/16 [Percocet 10-325 mg Tablet] - Allergies Allergies/Adverse Reactions: Allergies Allergy/AdvReac Type Severity Reaction Status Date / Time pregabalin [From Lyrica] Allergy Intermediate unknown Verified 09/22/16 09:27 simvastatin [From Zocor] Allergy Intermediate Nausea Verified 09/22/16 09:27 sulfamethoxazole Allergy Intermediate unknown Verified 09/22/16 09:27 [From Septra] trimethoprim [From Septra] Allergy Intermediate unknown Verified 09/22/16 09:27 tetracycline [Tetracycline] Allergy Rash Verified 09/22/16 09:27 - Social History Does the pt smoke?: No Smoking Status: Former smoker Does the pt drink ETOH?: No Does the pt have substance abuse?: No - Immunizations Immunizations are current?: Yes - POLST Patient has POLST: No PD ED PE NORMAL - Vitals Vital signs reviewed: Yes (normal ) - General General: No acute distress, Well developed/nourished, Other (The patient has dry mucous membranes and appears over sedated. ) - HEENT HEENT: Atraumatic, PERRL, EOMI, Ears normal, Other (dry mucous membranes and the tongue is dry and I am unable to examine the posterior pharynx because of the redundancy. ) - Neck Neck: Supple, no meningeal sign, No bony TTP - Cardiac Cardiac: RRR, No murmur - Respiratory Respiratory: No respiratory distress, Clear bilaterally - Abdomen Abdomen: Soft, Other (The liver is palpable one hand breadth below the costal margin on the right and palpation of the liver causes pain in the lateral abdomen on the left. There is eccymosiss that extends from the left lower chest wall to the illiac crest on the left. ) - Back Back: No CVA TTP, No spinal TTP - Derm Derm: Normal color, Warm and dry - Extremities Extremities: No deformity, Other (There is woody induration bilaterally with post inflamatory hyperpigmentation. ) - Neuro Neuro: No motor deficit, No sensory deficit - Psych Psych: Normal mood, Normal affect Results - Vitals Vitals: Vital Signs - 24 hr 09/22/16 09/22/16 09/22/16 09:20 10:12 10:37 Temperature 36.4 C L Heart Rate 86 82 79 Respiratory 16 18 16 Rate Blood Pressure 108/62 140/82 H 111/59 L O2 Saturation 94 94 93 09/22/16 11:26 Temperature Heart Rate 82 Respiratory 16 Rate Blood Pressure 117/58 L O2 Saturation 100 Oxygen O2 Source Room air - EKG (time done) 0930 Rate: Rate (enter#) (85) Other comments: Other comments (early transition. ) Compare to prior EKG: Unchanged from prior EKG (09-19-16) Computer interpretation: Agree with computer - Labs Labs: Laboratory Tests 09/22/16 09/22/16 09/22/16 09:30 09:30 09:30 WBC 8.6 RBC 3.69 L Hgb 11.7 L Hct 34.5 L MCV 93.5 MCH 31.6 H MCHC 33.8 RDW 14.7 Plt Count 154 MPV 7.7 Neut # 5.4 Lymph # 1.8 [place] # 1.0 Eos # 0.3 Baso # 0.1 Absolute Nucleated RBC 0.00 Nucleated RBCs 0.0 PT 11.2 INR 1.0 Sodium 138 Potassium 3.8 Chloride 105 Carbon Dioxide 24 Anion Gap 9.0 BUN 50 H Creatinine 2.1 H Estimated GFR (MDRD) 31 L Glucose 265 H Lactic Acid Calcium 8.5 Total Bilirubin 0.8 AST 45 H ALT 50 Alkaline Phosphatase 107 Total Creatine Kinase 722 H CK-MB (CK-2) Troponin I Total Protein 6.8 Albumin 3.4 Globulin 3.4 Albumin/Globulin Ratio 1.0 Lipase 21 L Acetaminophen 13 09/22/16 09/22/16 09:30 10:20 WBC RBC Hgb Hct MCV MCH MCHC RDW Plt Count MPV Neut # Lymph # [place] # Eos # Baso # Absolute Nucleated RBC Nucleated RBCs PT INR Sodium Potassium Chloride Carbon Dioxide Anion Gap BUN Creatinine Estimated GFR (MDRD) Glucose Lactic Acid 1.1 Calcium Total Bilirubin AST ALT Alkaline Phosphatase Total Creatine Kinase CK-MB (CK-2) 8.5 H Troponin I < 0.04 Total Protein Albumin Globulin Albumin/Globulin Ratio Lipase Acetaminophen - Rads (name of study) CT abdomen and pelvis Radiology: Prelim report reviewed (Impression: 1. Liver mildly enlarged and nodular appearing suggesting cirrhosis. No focal mass lesions appreciated on noncontrast imaging. 2. Multiple nonobstructive right intrarenal stones measuring up to 3 mm as before. 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 3. Single nonobstructing 2 mm left intrarenal stone decreased a number since last exam. 4. Interval resolution of pancreatitis. 5. Fat- containing 5 cm right indirect inguinal hernia similar to prior exam. 6. New left lateral abdominal wall edema and or bruising without measurable hematoma.) , EMP read indepedently, See rad report PD MEDICAL DECISION MAKING - ED course Complexity details: reviewed results, re-evaluated patient, considered differential, d/w patient, d/w family ED course: 71 y/o male with a severe cough over the past month has improvement in his symptoms with treatment and he was back here 2 days ago with pain in the left chest wall from a coughing paroxysm. We had a hard time controlling the pain and he wanted to be admitted to the hospital for the pain. We were eventually able to get the pain under control and we put him back on antibiotic because he felt that is what helped the most with the cough. He reports that the drainage and the cough are improved today but he awoke with a large bruise to the left side of the abdomen starting in the chest and going down to the illiac crest. This is dramatic appearing and the bruising appears the stated age. I thought it important to image the abdomen to view for injury and there was none apparent. His liver is a hand breadth below the costal margin and today his liver functions are improved from prior. The imaging was reassuring and the patient was happy to go home. He still complains a lot about the pain in his side. Departure - Departure Disposition: 01 Home, Self Care Clinical Impression: Chest wall pain Abdominal wall hematoma Qualifiers: Encounter type: initial encounter Qualified Code(s): S30.1XXA - Contusion of abdominal wall, initial encounter Condition: Stable Instructions: ED Hematoma, ED Strain Chest Wall Follow-Up: Valeria Cabrales MD [Primary Care Provider] - Prescriptions: Oxycodone HCl/Acetaminophen [Percocet 10-325 mg Tablet] 1 - 2 each PO Q6HR PRN # 20 tablet PRN Reason: Pain Benzonatate [Tessalon] 100 - 200 mg PO TID PRN #20 capsule PRN Reason: Cough Discharge Date/Time: 09/22/16 12:00
[2016-09-22 09:51] LABS: BASOPHILS # (AUTO) 0.1 10^3/uL (0.0-0.1); BASOPHILS % (AUTO) 0.7 %; EOSINOPHILS # (AUTO) 0.3 10^3/uL (0.0-0.7); HCT - HEMATOCRIT 34.5 % (42.0-52.0); HGB - HEMOGLOBIN 11.7 g/dL (14.0-18.0); LYMPHOCYTES # (AUTO) 1.8 10^3/uL (1.5-3.5); LYMPHOCYTES % (AUTO) 21.2 %; MEAN CORPUSCULAR HEMOGLOBIN 31.6 pg (27.0-31.0); MEAN CORPUSCULAR HGB CONC 33.8 g/dL (32.0-36.0); MEAN CORPUSCULAR VOLUME 93.5 fL (80.0-94.0); MEAN PLATELET VOLUME 7.7 fL (7.4-11.4); MONOCYTES % (AUTO) 11.8 %; NEUTROPHILS # (AUTO) 5.4 10^3/uL (1.5-6.6); NEUTROPHILS % (AUTO) 62.3 %; RED BLOOD COUNT 3.69 10^6/uL (4.70-6.10); RED CELL DISTRIBUTION WIDTH 14.7 % (12.0-15.0); UNCORRECTED WHITE BLOOD COUNT 8.6 x10^3/uL; WHITE BLOOD COUNT 8.6 x10^3/uL (4.8-10.8)
[2016-09-22 09:58] LABS: BILIRUBIN,TOTAL 0.8 mg/dL (0.2-1.0); CALCIUM 8.5 mg/dL (8.5-10.3); CREATININE 2.1 mg/dL (0.6-1.2); POTASSIUM 3.8 mmol/L (3.5-5.0); TOTAL PROTEIN 6.8 g/dL (6.7-8.2)
[2016-09-22 09:59] LABS: PT - PROTHROMBIN TIME 11.2 secs (9.9-12.6)
[2016-09-22 10:03] LABS: TROPONIN I < 0.04 ng/mL (<0.49)
[2016-09-22] MEDS ORDERED: ONDANSETRON 4 MG/2 ML VIAL ONE (10:03)
[2016-09-22] MEDS ORDERED: HYDROmorphone 1 MG/ML SYRINGE ONE (10:03)
[2016-09-22 10:05] LABS: CREATINE KINASE MB 8.5 ng/mL (0.6-6.3)
--- NOTE | 2016-09-22 10:53 | CT Report ---
EXAM: CT ABDOMEN AND PELVIS (CT KUB) EXAM DATE: 09/22/2016 10:01 AM. CLINICAL HISTORY: Hepatomegaly and left sided bruising/pain. COMPARISONS: 02/14/2013. TECHNIQUE: Routine axial helical CT imaging was performed through the abdomen and pelvis without IV c ontrast. Reconstructions: Coronal and sagittal. In accordance with CT protocol optimization, one or more of the following dose reduction techniques w ere utilized for this exam: automated exposure control, adjustment of mA and/or KV based on patient s ize, or use of iterative reconstructive technique. FINDINGS: Lung Bases: Mild new left greater than right basilar atelectasis present. No consolidation or effusio ns. Right Kidney/Ureter: Extensive renal lobulation present diffusely as before. 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 No hydronephrosis evident. Multiple nonobstructive intrarenal stones number approximately 8 and measure from 1 mm to 3 mm in size similar to prior exam. An exophytic cys tic focus about the mid kidney measuring 1.8 cm is not significantly changed. Left Kidney/Ureter: Diffuse lobulations present as before. No hydronephrosis or hydroureter. A single small nonobstructive mid renal stone measures 2 mm. Previously 4 intrarenal calculi were ident ified. Multiple probable renal cysts again present not appreciably changed. Other Solid Organs: The liver has a nodular surface contour diffusely and is prominent measuring 22.5 cm longitudinally. No focal mass is appreciated on noncontrast imaging. The spleen is normal in size . The pancreas is unremarkable. The pancreatic inflammatory changes seen previously have resolved. Th e adrenal glands are unremarkable. Gallbladder/Bile Ducts: Unremarkable. Peritoneal Cavity: No free fluid, free air or corey adenopathy. Bowel is grossly unremarkable. The ap pendix is normal. Pelvic Organs: No bladder stones or wall thickening. Noncontrast images of the visualized pelvic orga ns are unremarkable. Vasculature: Unremarkable. Other: A fat-containing indirect right inguinal hernia measures up to approximate 5 cm transaxially. Old healed lateral right fifth and sixth rib fractures appear new. There is new subcutaneous edema ab out the left lateral flank diffusely. No focal hematoma. IMPRESSION: 1. Liver mildly enlarged and nodular appearing suggesting cirrhosis. No focal mass lesions appreciate d on noncontrast imaging. 2. Multiple nonobstructive right intrarenal stones measuring up to 3 mm as before. 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 3. Single nonobstructive 2 mm left intrarenal stone decreased in number since last exam. 4. Interval resolution of pancreatitis. 5. Fat-containing 5 cm right indirect inguinal hernia similar to prior exam. 6. New left lateral abdominal wall edema and/or bruising without measurable hematoma. [facility] Referring Provider Line: [phone] SITE ID: [id number]
[2016-09-22 11:27] VITALS: BP 117/58
== END 2016-09-22 12:00 | disposition home or self-care (01) ==
LOC: ED 09:14
DX: R07.89 Other chest pain (principal); S30.1XXA Contusion of abdominal wall, initial encounter; X58.XXXA Exposure to other specified factors, initial encounter; R09.82 Postnasal drip; R05 Cough; J44.9 Chronic obstructive pulmonary disease, unspecified; I10 Essential (primary) hypertension; E11.42 Type 2 diabetes mellitus with diabetic polyneuropathy; Z79.4 Long term (current) use of insulin; Z79.82 Long term (current) use of aspirin; Z87.891 Personal history of nicotine dependence
CPT/HCPCS: 36415; 74176; 80053; 80307; 82550; 82553; 83605; 83690; 84484; 85025; 85610; 87040; 93005; 96374; 96375; 99284; 99285; J1170

== ENCOUNTER 2016-09-25 09:50 | Emergency (ER) | payer MEDICARE, OTHER ==
--- NOTE | 2016-09-25 10:58 | XRAY Preliminary Report ---
Exam: XR Chest 2 View PA/LAT IMPRESSION: Healing right rib fractures. No definite acute disease. [facility] SITE ID: [id number]
--- NOTE | 2016-09-25 11:00 | XRAY Report ---
EXAM: CHEST RADIOGRAPHY EXAM DATE: 09/25/2016 10:50 AM. CLINICAL HISTORY: Cough right sided chest pain . COMPARISON: 09/19/2016. TECHNIQUE: 2 views. FINDINGS: Lungs/Pleura: Hyperexpanded with flattened hemidiaphragm and coarse lung markings typical for COPD. N o definite localized infiltrate, consolidation, effusion, or pneumothorax. Mediastinum: Normal heart size, unchanged. Upper lobe vessels not distended. Other: Osteopenia, degenerative changes, healing right rib fractures. IMPRESSION: Healing right rib fractures. No definite acute disease. [facility] Referring Provider Line: [phone] SITE ID: [id number]
[2016-09-25 11:02] LABS: BASOPHILS # (AUTO) 0.1 10^3/uL (0.0-0.1); BASOPHILS % (AUTO) 0.8 %; EOSINOPHILS # (AUTO) 0.2 10^3/uL (0.0-0.7); EOSINOPHILS % (AUTO) 2.6 %; HCT - HEMATOCRIT 32.1 % (42.0-52.0); HGB - HEMOGLOBIN 10.9 g/dL (14.0-18.0); LYMPHOCYTES # (AUTO) 1.5 10^3/uL (1.5-3.5); LYMPHOCYTES % (AUTO) 19.7 %; MEAN CORPUSCULAR HEMOGLOBIN 31.7 pg (27.0-31.0); MEAN CORPUSCULAR HGB CONC 34.1 g/dL (32.0-36.0); MEAN CORPUSCULAR VOLUME 93.1 fL (80.0-94.0); MEAN PLATELET VOLUME 6.9 fL (7.4-11.4); MONOCYTES # (AUTO) 0.9 10^3/uL (0.0-1.0); MONOCYTES % (AUTO) 11.4 %; NEUTROPHILS # (AUTO) 5.1 10^3/uL (1.5-6.6); NEUTROPHILS % (AUTO) 65.5 %; RED BLOOD COUNT 3.45 10^6/uL (4.70-6.10); RED CELL DISTRIBUTION WIDTH 14.5 % (12.0-15.0); UNCORRECTED WHITE BLOOD COUNT 7.8 x10^3/uL; WHITE BLOOD COUNT 7.8 x10^3/uL (4.8-10.8)
[2016-09-25 11:13] LABS: ALBUMIN/GLOBULIN RATIO 0.8 (1.0-2.2); BILIRUBIN,TOTAL 0.6 mg/dL (0.2-1.0); CALCIUM 8.8 mg/dL (8.5-10.3); CREATININE 1.6 mg/dL (0.6-1.2); POTASSIUM 3.9 mmol/L (3.5-5.0)
--- NOTE | 2016-09-25 11:29 | ED Physician Documentation ---
PD HPI CHEST PAIN - Stated complaint Stated Complaint: COUGH - Chief complaint Chief Complaint: Resp - History obtained from History obtained from: Patient - History of Present Illness Timing - onset: How many weeks ago (4) Timing - onset during: Rest Timing - duration: Weeks (4) Timing - details: Gradual onset, Still present, Waxing and waning Quality: Sharp Location: Right chest Radiation: Abdominal Improved by: Rest, Other medication Worsened by: Inspiration, Movement, Palpation, Position, Other (coughing) Associated symptoms: Cough. No: Shortness of air, Diaphoresis, Nausea, Vomiting , Feeling faint / dizzy, General Weakness, Palpitations Similar symptoms before: Diagnosis (chest wall injury) Recently seen: Emergency Dept - Additional information Additional information: 71-year-old male with a history of COPD and has developed a cough over the past month and has had coughing paroxysms that have led to a strain of the chest wall there is enough of a strain of the chest wall that he has had blood tracking all the way down into his abdominal wall and a large bruise. He has been having an issue with this for more than a month he has been on a course of Augmentin which seem to decrease the phlegm he was having. He has been on a subsequent course of azithromycin which did not seem to help. He is now on a second course of Augmentin which is again helping with the phlegm but he continues to have a cough and coughing paroxysms they are only slightly better. He has been evaluated in the emergency department 3 times for this recently and has had pain medication and cough suppressant in addition to the antibiotic. He has had studies including CT of the chest and CT of the abdomen and pelvis without evidence of infiltrate in the chest or findings in the abdomen.He appears simply to have complications of coughing paroxysms. Review of Systems Constitutional: reports: Fatigue. denies: Fever, Chills Eyes: denies: Decreased vision Ears: denies: Ear pain Nose: denies: Congestion Throat: denies: Sore throat Cardiac: reports: Chest pain / pressure. denies: Palpitations, Pedal edema, Calf pain Respiratory: reports: Cough GI: reports: Abdominal Pain, Abdominal Swelling. denies: Nausea, Vomiting : denies: Dysuria, Frequency PD PAST MEDICAL HISTORY - Past Medical History Past Medical History: Yes Cardiovascular: Hypertension, High cholesterol Neuro: Peripheral neuropathy Endocrine/Autoimmune: Type 2 diabetes - Past Surgical History Past Surgical History: Yes Cardiovascular: Coronary stent HEENT: Cataracts - Present Medications Home Medications: Ambulatory Orders Medication Instructions Recorded Confirmed Aspirin [Aspir 81] 81 mg PO DAILY 11/07/12 09/22/16 Carvedilol [Coreg] 25 mg PO BID 11/07/12 09/22/16 Clonidine HCl [Kapvay] 0.1 mg PO DAILY 11/07/12 09/22/16 DULoxetine [Cymbalta] 60 mg PO DAILY 11/07/12 09/22/16 Furosemide [Lasix] 40 mg PO QAM 11/07/12 09/22/16 Levothyroxine [Synthroid] 25 mcg PO QDAC 11/07/12 09/22/16 Loratadine [Children's 10 mg PO DAILY 11/07/12 09/22/16 Clear-Atadine] Losartan Potassium [Cozaar] 50 mg PO DAILY 11/07/12 09/22/16 Omeprazole [PriLOSEC] 20 mg PO DAILY 11/07/12 09/22/16 Potassium Chloride 20 meq PO TITR 11/07/12 09/22/16 Albuterol [Ventolin Hfa] 2 puffs INH Q4H PRN 04/01/15 09/22/16 Gabapentin 1,200 mg ORAL QPM 04/01/15 09/22/16 HYDROcod/ACETAM 5/325 [Vicodin 1 - 2 tab ORAL Q4H PRN 04/01/15 09/22/16 5/325] amLODIPine [Norvasc] 5 mg ORAL DAILY 04/01/15 09/22/16 Atorvastatin [Lipitor] 40 mg PO DAILY 05/29/15 09/22/16 Insulin Glargine,Hum.rec.anlog 100 units SQ BID 05/29/15 09/22/16 [Lantus] diazePAM [Valium] 5 mg PO TID PRN #15 tablet 05/29/15 09/22/16 Azithromycin [Zithromax] 250 mg PO DAILY #6 tablet 08/21/16 09/22/16 predniSONE [Deltasone] 10 mg PO DAILY #26 tablet 08/21/16 09/22/16 Amox/Clav 875/125 [Augmentin] 1 each PO Q12H #20 tablet 08/24/16 09/22/16 Benzonatate [Tessalon] 100 - 200 mg PO TID PRN #20 capsule 08/24/16 09/22/16 HYDROcod/ACETAM 5/325 [[place] 5/325] 1 - 2 ea PO Q6H PRN #15 tablet 08/24/16 Ipratropium/Albuterol [Duoneb] 3 ml INH Q6H PRN #20 neb 08/24/16 09/22/16 Amox/Clav 875/125 [Augmentin] 1 each PO Q12H #28 tablet 09/19/16 09/22/16 Hydrocodone/Acetaminophen 1 - 2 each PO Q6HR PRN #20 tablet 09/19/16 09/22/16 [Hydrocodon-Acetaminophn 10-325] Promethazine HCl/Codeine 5 - 10 ml PO Q4HR PRN #240 ml 09/19/16 09/22/16 [Prometh-Codein 6.25-10 mg/5 ml] Benzonatate [Tessalon] 100 - 200 mg PO TID PRN #20 capsule 09/22/16 Oxycodone HCl/Acetaminophen 1 - 2 each PO Q6HR PRN #20 tablet 09/22/16 [Percocet 10-325 mg Tablet] Oxycodone HCl/Acetaminophen 1 - 2 each PO Q4HR PRN #20 tablet 09/25/16 [Percocet 10-325 mg Tablet] Promethazine HCl/Codeine 5 - 10 ml PO Q4HR PRN #240 ml 09/25/16 [Prometh-Codein 6.25-10 mg/5 ml] - Allergies Allergies/Adverse Reactions: Allergies Allergy/AdvReac Type Severity Reaction Status Date / Time pregabalin [From Lyrica] Allergy Intermediate unknown Verified 09/22/16 09:27 simvastatin [From Zocor] Allergy Intermediate Nausea Verified 09/22/16 09:27 sulfamethoxazole Allergy Intermediate unknown Verified 09/22/16 09:27 [From Septra] trimethoprim [From Septra] Allergy Intermediate unknown Verified 09/22/16 09:27 tetracycline [Tetracycline] Allergy Rash Verified 09/22/16 09:27 - Social History Does the pt smoke?: No Smoking Status: Former smoker Does the pt drink ETOH?: No Does the pt have substance abuse?: No - Immunizations Immunizations are current?: Yes - POLST Patient has POLST: No PD ED PE NORMAL - Vitals Vital signs reviewed: Yes (hypertensive mild ) - General General: No acute distress, Well developed/nourished - HEENT HEENT: Atraumatic, PERRL, EOMI - Neck Neck: Supple, no meningeal sign, No bony TTP - Cardiac Cardiac: RRR, No murmur - Respiratory Respiratory: No respiratory distress, Clear bilaterally - Abdomen Abdomen: Soft, Non tender, Other (There is ecchymosis that tracts from the upper left abdominal wall to the suprapubic area. This is a large bruise with some swelling to the abdominal wall .) - Back Back: No CVA TTP, No spinal TTP - Derm Derm: Normal color, Warm and dry, No rash - Extremities Extremities: No deformity, No edema - Neuro Neuro: No motor deficit, No sensory deficit - Psych Psych: Normal mood, Normal affect Results - Vitals Vitals: Vital Signs - 24 hr 09/25/16 09:51 Temperature 35.8 C L Heart Rate 90 Respiratory 18 Rate Blood Pressure 135/83 H O2 Saturation 97 Oxygen O2 Source Room air - Labs Labs: Laboratory Tests 09/25/16 09/25/16 10:56 10:56 WBC 7.8 RBC 3.45 L Hgb 10.9 L Hct 32.1 L MCV 93.1 MCH 31.7 H MCHC 34.1 RDW 14.5 Plt Count 154 MPV 6.9 L Neut # 5.1 Lymph # 1.5 Stephens # 0.9 Eos # 0.2 Baso # 0.1 Absolute Nucleated RBC 0.00 Nucleated RBCs 0.0 Sodium 141 Potassium 3.9 Chloride 110 Carbon Dioxide 24 Anion Gap 7.0 BUN 32 H Creatinine 1.6 H Estimated GFR (MDRD) 43 L Glucose 98 Calcium 8.8 Total Bilirubin 0.6 AST 41 ALT 47 Alkaline Phosphatase 98 Total Protein 7.0 Albumin 3.2 Globulin 3.8 Albumin/Globulin Ratio 0.8 L Lipase 13 L - Rads (name of study) 2 view chest Radiology: Prelim report reviewed (Impression: Healing right rib fractures. No definite acute disease.), EMP read indepedently, See rad report PD MEDICAL DECISION MAKING - ED course Complexity details: reviewed results, re-evaluated patient, considered differential, d/w patient ED course: 71-year-old male with ongoing coughing paroxysms and chest wall pain presents today with right-sided chest wall pain chest x-ray is again without evidence of infiltrate blood work is unremarkable he will continue on his current regimen we will refill his cough syrup and his pain medication. Departure - Departure Disposition: 01 Home, Self Care Clinical Impression: Chest wall pain Abdominal wall hematoma Qualifiers: Encounter type: subsequent encounter Qualified Code(s): S30.1XXD - Contusion of abdominal wall, subsequent encounter Condition: Stable Instructions: ED Bronchitis Asthmatic, ED Strain Chest Wall, ED Hematoma Follow-Up: Valeria Cabrales MD [Primary Care Provider] - Prescriptions: Oxycodone HCl/Acetaminophen [Percocet 10-325 mg Tablet] 1 - 2 each PO Q4HR PRN # 20 tablet PRN Reason: Pain Promethazine HCl/Codeine [Prometh-Codein 6.25-10 mg/5 ml] 5 - 10 ml PO Q4HR PRN #240 ml PRN Reason: Cough
[2016-09-25 11:31] VITALS: BP 135/81
== END 2016-09-25 11:54 | disposition home or self-care (01) ==
LOC: ED 09:50
DX: R07.89 Other chest pain (principal); R05 Cough; S29.011A Strain of muscle and tendon of front wall of thorax, initial encounter; S30.1XXA Contusion of abdominal wall, initial encounter; X58.XXXA Exposure to other specified factors, initial encounter; J44.9 Chronic obstructive pulmonary disease, unspecified; Z87.891 Personal history of nicotine dependence; I10 Essential (primary) hypertension; E11.42 Type 2 diabetes mellitus with diabetic polyneuropathy; Z79.4 Long term (current) use of insulin; Z79.82 Long term (current) use of aspirin
CPT/HCPCS: 36415; 71020; 80053; 83690; 85025; 99283; 99284

== ENCOUNTER 2016-09-28 14:04 | Emergency (ER) | payer MEDICARE, OTHER ==
[2016-09-28] MEDS ORDERED: IPRATROPIUM/ALBUTEROL 3 ML NEB INH STA (15:50)
[2016-09-28] MEDS ORDERED: IPRATROPIUM/ALBUTEROL 3 ML NEB INH ONE (15:58)
[2016-09-28 17:27] LABS: BASOPHILS # (AUTO) 0.1 10^3/uL (0.0-0.1); BASOPHILS % (AUTO) 0.9 %; EOSINOPHILS # (AUTO) 0.2 10^3/uL (0.0-0.7); EOSINOPHILS % (AUTO) 2.2 %; HCT - HEMATOCRIT 38.1 % (42.0-52.0); HGB - HEMOGLOBIN 12.5 g/dL (14.0-18.0); LYMPHOCYTES # (AUTO) 1.2 10^3/uL (1.5-3.5); LYMPHOCYTES % (AUTO) 12.4 %; MEAN CORPUSCULAR HGB CONC 32.8 g/dL (32.0-36.0); MEAN CORPUSCULAR VOLUME 94.3 fL (80.0-94.0); MEAN PLATELET VOLUME 7.2 fL (7.4-11.4); MONOCYTES # (AUTO) 0.9 10^3/uL (0.0-1.0); MONOCYTES % (AUTO) 9.4 %; NEUTROPHILS # (AUTO) 7.2 10^3/uL (1.5-6.6); NEUTROPHILS % (AUTO) 75.1 %; RED BLOOD COUNT 4.04 10^6/uL (4.70-6.10); RED CELL DISTRIBUTION WIDTH 13.9 % (12.0-15.0); UNCORRECTED WHITE BLOOD COUNT 9.6 x10^3/uL; WHITE BLOOD COUNT 9.6 x10^3/uL (4.8-10.8)
[2016-09-28 17:40] LABS: ALBUMIN/GLOBULIN RATIO 0.9 (1.0-2.2); BILIRUBIN,TOTAL 0.9 mg/dL (0.2-1.0); CALCIUM 9.1 mg/dL (8.5-10.3); CREATININE 1.3 mg/dL (0.6-1.2); POTASSIUM 4.1 mmol/L (3.5-5.0); TOTAL PROTEIN 7.7 g/dL (6.7-8.2)
[2016-09-28] MEDS ORDERED: LORazepam 0.5 MG TABLET PO STA (17:43)
[2016-09-28] MEDS ORDERED: LORazepam 0.5 MG TABLET ONE (17:47)
[2016-09-28 17:55] LABS: BILIRUBIN,URINE NEGATIVE (NEGATIVE)
[2016-09-28 17:56] LABS: UA w/ MICROSCOPIC CHARGE YES
--- NOTE | 2016-09-28 18:25 | ED Physician Documentation ---
History of Present Illness - Stated complaint Stated Complaint: DIFFICULTY BREATHING,PANIC - Chief complaint Chief Complaint: General - History obtained from History obtained from: Patient - Additonal information Additional information: The patient is a 71-year-old insulin-dependent diabetic male with history of COPD, who presents complaining of dyspnea, cough, and "panicking." He reports having a nonproductive cough for weeks, and has been treated with Augmentin and with Zithromax. He was seen here 2 days ago with similar symptoms and a chest x -ray revealed healing right rib fractures, without pulmonary infiltrate. He was prescribed Percocet and Phenergan at that time for the pain associated with coughing. Previously a CT of his chest, abdomen and pelvis were negative. He denies fever, headache, sore throat, nausea or vomiting. He quit smoking cigarettes in 2002. Review of Systems Constitutional: denies: Fever Nose: denies: Congestion Throat: denies: Sore throat Cardiac: reports: Chest pain / pressure (Associated with coughing.) Respiratory: reports: Dyspnea, Cough GI: denies: Abdominal Pain, Nausea, Vomiting : denies: Dysuria Skin: denies: Rash Musculoskeletal: reports: Extremity swelling (Chronically, with no recent change.). denies: Back pain Neurologic: denies: Headache PD PAST MEDICAL HISTORY - Past Medical History Past Medical History: Yes Cardiovascular: Hypertension, High cholesterol Respiratory: COPD Neuro: Peripheral neuropathy Endocrine/Autoimmune: Type 2 diabetes - Past Surgical History Past Surgical History: Yes Cardiovascular: Coronary stent HEENT: Cataracts - Present Medications Home Medications: Ambulatory Orders Medication Instructions Recorded Confirmed Aspirin [Aspir 81] 81 mg PO DAILY 11/07/12 09/22/16 Carvedilol [Coreg] 25 mg PO BID 11/07/12 09/22/16 Clonidine HCl [Kapvay] 0.1 mg PO DAILY 11/07/12 09/22/16 DULoxetine [Cymbalta] 60 mg PO DAILY 11/07/12 09/22/16 Furosemide [Lasix] 40 mg PO QAM 11/07/12 09/22/16 Levothyroxine [Synthroid] 25 mcg PO QDAC 11/07/12 09/22/16 Loratadine [Children's 10 mg PO DAILY 11/07/12 09/22/16 Clear-Atadine] Losartan Potassium [Cozaar] 50 mg PO DAILY 11/07/12 09/22/16 Omeprazole [PriLOSEC] 20 mg PO DAILY 11/07/12 09/22/16 Potassium Chloride 20 meq PO TITR 11/07/12 09/22/16 Albuterol [Ventolin Hfa] 2 puffs INH Q4H PRN 04/01/15 09/22/16 Gabapentin 1,200 mg ORAL QPM 04/01/15 09/22/16 HYDROcod/ACETAM 5/325 [Vicodin 1 - 2 tab ORAL Q4H PRN 04/01/15 09/22/16 5/325] amLODIPine [Norvasc] 5 mg ORAL DAILY 04/01/15 09/22/16 Atorvastatin [Lipitor] 40 mg PO DAILY 05/29/15 09/22/16 Insulin Glargine,Hum.rec.anlog 100 units SQ BID 05/29/15 09/22/16 [Lantus] diazePAM [Valium] 5 mg PO TID PRN #15 tablet 05/29/15 09/22/16 Azithromycin [Zithromax] 250 mg PO DAILY #6 tablet 08/21/16 09/22/16 predniSONE [Deltasone] 10 mg PO DAILY #26 tablet 08/21/16 09/22/16 Amox/Clav 875/125 [Augmentin] 1 each PO Q12H #20 tablet 08/24/16 09/22/16 Benzonatate [Tessalon] 100 - 200 mg PO TID PRN #20 capsule 08/24/16 09/22/16 HYDROcod/ACETAM 5/325 [[place] 5/325] 1 - 2 ea PO Q6H PRN #15 tablet 08/24/16 Ipratropium/Albuterol [Duoneb] 3 ml INH Q6H PRN #20 neb 08/24/16 09/22/16 Amox/Clav 875/125 [Augmentin] 1 each PO Q12H #28 tablet 09/19/16 09/22/16 Hydrocodone/Acetaminophen 1 - 2 each PO Q6HR PRN #20 tablet 09/19/16 09/22/16 [Hydrocodon-Acetaminophn 10-325] Promethazine HCl/Codeine 5 - 10 ml PO Q4HR PRN #240 ml 09/19/16 09/22/16 [Prometh-Codein 6.25-10 mg/5 ml] Benzonatate [Tessalon] 100 - 200 mg PO TID PRN #20 capsule 09/22/16 Oxycodone HCl/Acetaminophen 1 - 2 each PO Q6HR PRN #20 tablet 09/22/16 [Percocet 10-325 mg Tablet] Oxycodone HCl/Acetaminophen 1 - 2 each PO Q4HR PRN #20 tablet 09/25/16 [Percocet 10-325 mg Tablet] Promethazine HCl/Codeine 5 - 10 ml PO Q4HR PRN #240 ml 09/25/16 [Prometh-Codein 6.25-10 mg/5 ml] - Allergies Allergies/Adverse Reactions: Allergies Allergy/AdvReac Type Severity Reaction Status Date / Time pregabalin [From Lyrica] Allergy Intermediate unknown Verified 09/22/16 09:27 simvastatin [From Zocor] Allergy Intermediate Nausea Verified 09/22/16 09:27 sulfamethoxazole Allergy Intermediate unknown Verified 09/22/16 09:27 [From Septra] trimethoprim [From Septra] Allergy Intermediate unknown Verified 09/22/16 09:27 tetracycline [Tetracycline] Allergy Rash Verified 09/22/16 09:27 - Living Situation Living Situation: reports: With spouse/s.o. Living Arrangement: reports: At home - Social History Does the pt smoke?: No Smoking Status: Former smoker Does the pt drink ETOH?: No Does the pt have substance abuse?: No - Immunizations Immunizations are current?: Yes - POLST Patient has POLST: No PD ED PE NORMAL - Vitals Vital signs reviewed: Yes (Systolic hypertension.) - General General: Alert and oriented X 3, Other (Deconditioned male who is able to speak in full sentences.) - HEENT HEENT: Atraumatic, EOMI, Pharynx benign - Neck Neck: No adenopathy, No JVD - Cardiac Cardiac: RRR, No murmur - Respiratory Respiratory: Clear bilaterally, Other (Mild lower chest wall tenderness to palpation, mostly on the right.) - Abdomen Abdomen: Soft, Non tender - Back Back: No CVA TTP - Derm Derm: No rash - Extremities Extremities: No calf tenderness / cord, Other (There is brawny discoloration of his lower legs, with 1-2+ edema. There is an ulceration on the plantar aspect of the right big toe, without surrounding erythema or lymphangitic streaking.) - Neuro Neuro: Alert and oriented X 3, No motor deficit, Other (Decreased light touch sensation in the feet, consistent with diabetic peripheral neuropathy.) Results - Vitals Vitals: Oxygen O2 Source Room air - Labs Labs: Laboratory Tests 09/28/16 09/28/16 09/28/16 14:11 14:40 16:36 WBC RBC Hgb Hct MCV MCH MCHC RDW Plt Count MPV Neut # Lymph # [place] # Eos # Baso # Absolute Nucleated RBC Nucleated RBCs Sodium Potassium Chloride Carbon Dioxide Anion Gap BUN Creatinine Estimated GFR (MDRD) Glucose POC Whole Bld Glucose 83 91 88 Calcium Total Bilirubin AST ALT Alkaline Phosphatase Total Protein Albumin Globulin Albumin/Globulin Ratio Lipase Urine Color Urine Clarity Urine pH Ur Specific [place] Urine Protein Urine Glucose (UA) Urine Ketones Urine Occult Blood Urine Nitrite Urine Bilirubin Urine Urobilinogen Ur Leukocyte Esterase Urine RBC Urine WBC Ur Squamous Epith Cells Urine Bacteria Ur Microscopic Review Urine Culture Comments 09/28/16 09/28/16 09/28/16 17:20 17:20 17:30 WBC 9.6 RBC 4.04 L Hgb 12.5 L Hct 38.1 L MCV 94.3 H MCH 31.0 MCHC 32.8 RDW 13.9 Plt Count 182 MPV 7.2 L Neut # 7.2 H Lymph # 1.2 L [place] # 0.9 Eos # 0.2 Baso # 0.1 Absolute Nucleated RBC 0.00 Nucleated RBCs 0.0 Sodium 139 Potassium 4.1 Chloride 104 Carbon Dioxide 26 Anion Gap 9.0 BUN 16 Creatinine 1.3 H Estimated GFR (MDRD) 54 L Glucose 159 H POC Whole Bld Glucose Calcium 9.1 Total Bilirubin 0.9 AST 43 H ALT 47 Alkaline Phosphatase 116 Total Protein 7.7 Albumin 3.6 Globulin 4.1 Albumin/Globulin Ratio 0.9 L Lipase 12 L Urine Color YELLOW Urine Clarity CLEAR Urine pH 6.0 Ur Specific [place] 1.015 Urine Protein 30 H Urine Glucose (UA) NEGATIVE Urine Ketones NEGATIVE Urine Occult Blood NEGATIVE Urine Nitrite NEGATIVE Urine Bilirubin NEGATIVE Urine Urobilinogen 0.2 (NORMAL) Ur Leukocyte Esterase NEGATIVE Urine RBC 0-5 Urine WBC 0-3 Ur Squamous Epith Cells RARE Squamous Urine Bacteria None Seen Ur Microscopic Review INDICATED Urine Culture Comments NOT INDICATED PD MEDICAL DECISION MAKING - ED course Complexity details: reviewed old records, reviewed results, re-evaluated patient , considered differential, d/w patient ED course: It is likely that the patient's presentation represents stress reaction to physiologic hypoglycemia. While in the emergency department he did not demonstrate any coughing paroxysms. His examination did not suggest pneumonia, congestive heart failure, and I doubt pulmonary embolus. I do not think repeat imaging studies would be of clinical benefit. CBC reveals a normal white count of 9.6. At one point the patient developed anxiety and became mildly diaphoretic, with beads of sweat on his forehead. Fingerstick blood sugar at that time was 83. He was given juice and a sandwich, with subsequent complete resolution of his symptoms. It is quite likely that he develops physiologic symptoms of hypoglycemia with blood sugars in the 80s. Treatment in the emergency department included DuoNeb nebulizer and lorazepam 0.5 mg po. At the time of discharge the patient was feeling much improved. His blood sugar was 159. I discussed with him the likely etiology of his symptoms, my feeling that antibiotics are not clinically indicated, the importance of outpatient follow-up, as well as potentially worrisome signs or symptoms that should prompt reevaluation in the emergency department. Departure - Departure Disposition: 01 Home, Self Care Clinical Impression: Cough, Chest wall discomfort, Anxiety reaction, Insulin dependent diabetes mellitus Condition: Stable Instructions: ED Stress React Follow-Up: Valeria Cabrales MD [Primary Care Provider] - Comments: 1. Continue to monitor your blood sugars. 2. Follow-up with your primary physician within 1-2 weeks. Call to schedule appointment. 3. Return to the emergency department if you develop increasing difficulty breathing, or otherwise worsening symptoms. Discharge Date/Time: 09/28/16 18:48
[2016-09-28 18:34] LABS: UR CULTURE IF IND NOT INDICATED; WBC,URINE 0-3 /HPF (0-3)
[2016-09-28 18:48] VITALS: BP 176/81
== END 2016-09-28 18:48 | disposition home or self-care (01) ==
LOC: ED 14:04
DX: R05 Cough (principal); R07.89 Other chest pain; F41.9 Anxiety disorder, unspecified; E11.42 Type 2 diabetes mellitus with diabetic polyneuropathy; I10 Essential (primary) hypertension; J44.9 Chronic obstructive pulmonary disease, unspecified; Z79.4 Long term (current) use of insulin; Z95.5 Presence of coronary angioplasty implant and graft; Z87.891 Personal history of nicotine dependence; Z79.82 Long term (current) use of aspirin; F41.0 Panic disorder [episodic paroxysmal anxiety]
CPT/HCPCS: 36415; 80053; 81001; 83690; 85025; 94640; 99283; 99284; A9270; J7620; 81003; 87086

== ENCOUNTER 2017-03-06 11:29 | Outpatient (CLI) | payer MEDICARE, OTHER ==
--- NOTE | 2017-03-07 13:32 | XRAY Report ---
TWO-VIEW CHEST: 03/06/2017 COMPARISON: Left rib series 03/06/2017. INDICATION: Dyspnea. TECHNIQUE: Two views of the chest. FINDINGS: The lungs appear clear. No pneumothorax or pleural effusion. The mediastinum appears unremarkable. IMPRESSION: NO EVIDENCE OF ACTIVE PULMONARY PROCESS. MTDD
--- NOTE | 2017-03-07 13:35 | XRAY Report ---
RIB SERIES: 03/06/2017 COMPARISON: None. FINDINGS: No displaced rib fracture is seen. No pneumothorax. IMPRESSION: NEGATIVE RIBS. MTDD
== END 2017-03-06 11:30 | disposition home or self-care (01) ==
LOC: DI 11:29
PROVIDERS: ATTEND Internal Medicine
DX: R06.00 Dyspnea, unspecified (principal); R07.81 Pleurodynia
CPT/HCPCS: 71020

== ENCOUNTER 2017-04-02 15:00 | Emergency (ER) | payer MEDICARE, OTHER ==
--- NOTE | 2017-04-02 16:43 | XRAY Report ---
EXAM: RIGHT FOOT RADIOGRAPHY EXAM DATE: 04/02/2017 04:26 PM. CLINICAL HISTORY: Contusion/pain. COMPARISON: None. TECHNIQUE: 3 views. FINDINGS: Bones: Comminuted, minimally displaced fracture of the navicular is evident. No other fracture lines are seen. Joints: Normal. No subluxations. Soft Tissues: Soft tissue swelling noted at the medial aspect of the foot. IMPRESSION: 1. Comminuted, mildly displaced navicular fracture is evident with surrounding soft tissue swelling. [facility] Referring Provider Line: [phone] SITE ID: [id number]
--- NOTE | 2017-04-02 16:55 | ED Physician Documentation ---
PD HPI LOWER EXT INJURY - Stated complaint Stated Complaint: FOOT INJURY - Chief complaint Chief Complaint: Wound - History obtained from History obtained from: Patient, Family - History of Present Illness PD HPI LOW EXT INJURY LOCATION: Right, Foot Type of injury: Fall Where injury occurred: Street Timing - onset: How many days ago (5) Timing - duration: Days (5) Timing - details: Abrupt onset, Still present Improved by: Rest, Immobilization Worsened by: Moving, Palpating Associated symptoms: Swelling, Discolored. No: Weakness, Numbness Contributing factors: No: Anticoagulated Similar symptoms before: Has not had sx before Recently seen: Other (getting regular care at the wound center.) - Additional information Additional information: 71 y/o old diabetic male with chronic lower extremity edema has stepped up into the cab of his truck and his foot slipped off and landed on the ground. He has had increasing pain and swelling in the foot and he cannot bear weight without severe pain. Review of Systems Constitutional: denies: Fever Eyes: denies: Decreased vision Ears: denies: Ear pain Nose: denies: Congestion Throat: denies: Sore throat Respiratory: denies: Cough GI: denies: Vomiting Musculoskeletal: reports: Extremity pain, Extremity swelling, Pain with weight bearing Neurologic: denies: Generalized weakness, Focal weakness, Numbness PD PAST MEDICAL HISTORY - Past Medical History Past Medical History: Yes Cardiovascular: Hypertension, High cholesterol Respiratory: COPD Neuro: Peripheral neuropathy Endocrine/Autoimmune: Type 2 diabetes - Past Surgical History Past Surgical History: Yes Cardiovascular: Coronary stent HEENT: Cataracts - Present Medications Home Medications: Ambulatory Orders Medication Instructions Recorded Confirmed Aspirin [Aspir 81] 81 mg PO DAILY 11/07/12 09/22/16 Carvedilol [Coreg] 25 mg PO BID 11/07/12 09/22/16 Clonidine HCl [Kapvay] 0.1 mg PO DAILY 11/07/12 09/22/16 DULoxetine [Cymbalta] 60 mg PO DAILY 11/07/12 09/22/16 Furosemide [Lasix] 40 mg PO QAM 11/07/12 09/22/16 Levothyroxine [Synthroid] 25 mcg PO QDAC 11/07/12 09/22/16 Loratadine [Children's 10 mg PO DAILY 11/07/12 09/22/16 Clear-Atadine] Losartan Potassium [Cozaar] 50 mg PO DAILY 11/07/12 09/22/16 Omeprazole [PriLOSEC] 20 mg PO DAILY 11/07/12 09/22/16 Potassium Chloride 20 meq PO TITR 11/07/12 09/22/16 Albuterol [Ventolin Hfa] 2 puffs INH Q4H PRN 04/01/15 09/22/16 Gabapentin 1,200 mg ORAL QPM 04/01/15 09/22/16 HYDROcod/ACETAM 5/325 [Vicodin 1 - 2 tab ORAL Q4H PRN 04/01/15 09/22/16 5/325] amLODIPine [Norvasc] 5 mg ORAL DAILY 04/01/15 09/22/16 Atorvastatin [Lipitor] 40 mg PO DAILY 05/29/15 09/22/16 Insulin Glargine,Hum.rec.anlog 100 units SQ BID 05/29/15 09/22/16 [Lantus] diazePAM [Valium] 5 mg PO TID PRN #15 tablet 05/29/15 09/22/16 Azithromycin [Zithromax] 250 mg PO DAILY #6 tablet 08/21/16 09/22/16 predniSONE [Deltasone] 10 mg PO DAILY #26 tablet 08/21/16 09/22/16 Amox/Clav 875/125 [Augmentin] 1 each PO Q12H #20 tablet 08/24/16 09/22/16 Benzonatate [Tessalon] 100 - 200 mg PO TID PRN #20 capsule 08/24/16 09/22/16 HYDROcod/ACETAM 5/325 [Sanders 5/325] 1 - 2 ea PO Q6H PRN #15 tablet 08/24/16 Ipratropium/Albuterol [Duoneb] 3 ml INH Q6H PRN #20 neb 08/24/16 09/22/16 Amox/Clav 875/125 [Augmentin] 1 each PO Q12H #28 tablet 09/19/16 09/22/16 Hydrocodone/Acetaminophen 1 - 2 each PO Q6HR PRN #20 tablet 09/19/16 09/22/16 [Hydrocodon-Acetaminophn 10-325] Promethazine HCl/Codeine 5 - 10 ml PO Q4HR PRN #240 ml 09/19/16 09/22/16 [Prometh-Codein 6.25-10 mg/5 ml] Benzonatate [Tessalon] 100 - 200 mg PO TID PRN #20 capsule 09/22/16 Oxycodone HCl/Acetaminophen 1 - 2 each PO Q6HR PRN #20 tablet 09/22/16 [Percocet 10-325 mg Tablet] Oxycodone HCl/Acetaminophen 1 - 2 each PO Q4HR PRN #20 tablet 09/25/16 [Percocet 10-325 mg Tablet] Promethazine HCl/Codeine 5 - 10 ml PO Q4HR PRN #240 ml 09/25/16 [Prometh-Codein 6.25-10 mg/5 ml] Oxycodone HCl/Acetaminophen 1 each PO Q6HR PRN #20 tablet 04/02/17 [Percocet 10-325 mg Tablet] - Allergies Allergies/Adverse Reactions: Allergies Allergy/AdvReac Type Severity Reaction Status Date / Time pregabalin [From Lyrica] Allergy Intermediate unknown Verified 09/22/16 09:27 simvastatin [From Zocor] Allergy Intermediate Nausea Verified 09/22/16 09:27 sulfamethoxazole Allergy Intermediate unknown Verified 09/22/16 09:27 [From Septra] trimethoprim [From Septra] Allergy Intermediate unknown Verified 09/22/16 09:27 tetracycline [Tetracycline] Allergy Rash Verified 09/22/16 09:27 - Social History Does the pt smoke?: No Smoking Status: Never smoker Does the pt drink ETOH?: No Does the pt have substance abuse?: No - Immunizations Immunizations are current?: Yes - POLST Patient has POLST: No PD ED PE NORMAL - Vitals Vital signs reviewed: Yes (normal ) - General General: Alert and oriented X 3, No acute distress, Well developed/nourished - HEENT HEENT: Atraumatic, PERRL - Respiratory Respiratory: No respiratory distress - Extremities Extremities: Other (There is pitting edema to both feet with post inflamitory hyperpigmentation present. He does have compression dressings on the calves bilaterally. The right foot specifically is more swollen than the left and there is some tenderness. ) - Neuro Neuro: Alert and oriented X 3, No motor deficit Eye Opening: Spontaneous Motor: Obeys Commands Verbal: Oriented GCS Score: 15 - Psych Psych: Normal mood, Normal affect Results - Vitals Vitals: Vital Signs - 24 hr 04/02/17 04/02/17 15:38 17:27 Temperature 37.2 C 36.4 C L Heart Rate 93 91 Respiratory 18 16 Rate Blood Pressure 146/70 H 136/99 H O2 Saturation 94 97 Oxygen O2 Source Room air - Rads (name of study) right foot Radiology: Prelim report reviewed (Impression: 1. Comminuted, mildly displaced navicular fracture is evident with surrounding soft tissue swelling.), EMP read indepedently, See rad report PD MEDICAL DECISION MAKING - ED course Complexity details: reviewed results, re-evaluated patient, considered differential, d/w patient, d/w family ED course: 71-year-old male who stepped down hard after missing a step on his pickup truck has fractured his navicular on the right side. He does have some mid foot swelling and has a lot of pain with any weightbearing. He is not able to well localize his pain but he does have a lot of pain especially if he is up on it at all. He has been using more of his pain medication than usual and asks for more pain medicine. He is placed into a walking boot and we will provide a limited amount of pain medication until he can see his doctor for a refill. Departure - Departure Disposition: 01 Home, Self Care Clinical Impression: Foot fracture, right Qualifiers: Encounter type: initial encounter Fracture type: closed Qualified Code(s): S92.901A - Unspecified fracture of right foot, initial encounter for closed fracture Condition: Stable Instructions: ED Fx Foot, ED Boot Aircast Walker Follow-Up: Valeria Cabrales MD [Primary Care Provider] - [facility] [Provider Group] Prescriptions: Oxycodone HCl/Acetaminophen [Percocet 10-325 mg Tablet] 1 each PO Q6HR PRN #20 tablet PRN Reason: Pain Discharge Date/Time: 04/02/17 17:39
[2017-04-02 17:28] VITALS: BP 136/99
== END 2017-04-02 17:39 | disposition home or self-care (01) ==
LOC: ED 15:00
DX: S92.252A Displaced fracture of navicular [scaphoid] of left foot, initial encounter for closed fracture (principal); W01.0XXA Fall on same level from slipping, tripping and stumbling without subsequent striking against object, initial encounter; Y92.488 Other paved roadways as the place of occurrence of the external cause; I10 Essential (primary) hypertension; E11.42 Type 2 diabetes mellitus with diabetic polyneuropathy; Z79.4 Long term (current) use of insulin; E78.00 Pure hypercholesterolemia, unspecified; J44.9 Chronic obstructive pulmonary disease, unspecified; Z79.82 Long term (current) use of aspirin
CPT/HCPCS: 99283

== ENCOUNTER 2017-04-22 10:41 | Emergency (ER) | payer MEDICARE, OTHER ==
[2017-04-22 10:56] VITALS: BP 139/61
--- NOTE | 2017-04-22 13:01 | ED Physician Documentation ---
History of Present Illness - Stated complaint Stated Complaint: FOLLOW UP/R LEG PX - Chief complaint Chief Complaint: General - History obtained from History obtained from: Patient - History of Present Illness Timing: Other (This is a 71-year-old gentleman who is morbidly obese and has diabetes with a chronic foot wound on the right great toe. He was seen here 20 days ago, he was diagnosed with an navicular fracture. He has not been able to follow up or be compliant with the treatment plan because of a number of issues. 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 Because of that he has not really been wearing the boot much and when he does wear the boot he cannot get it on or off easily. He has been walking on it and still driving. He has not followed up with the orthopedics clinic.) Review of Systems Constitutional: denies: Fever, Chills GI: reports: Reviewed and negative : reports: Reviewed and negative PD PAST MEDICAL HISTORY - Past Medical History Cardiovascular: Hypertension, High cholesterol Respiratory: COPD Neuro: Peripheral neuropathy Endocrine/Autoimmune: Type 2 diabetes - Past Surgical History Past Surgical History: Yes Cardiovascular: Coronary stent HEENT: Cataracts - Present Medications Home Medications: Ambulatory Orders Medication Instructions Recorded Confirmed Aspirin [Aspir 81] 81 mg PO DAILY 11/07/12 09/22/16 Carvedilol [Coreg] 25 mg PO BID 11/07/12 09/22/16 Clonidine HCl [Kapvay] 0.1 mg PO DAILY 11/07/12 09/22/16 DULoxetine [Cymbalta] 60 mg PO DAILY 11/07/12 09/22/16 Furosemide [Lasix] 40 mg PO QAM 11/07/12 09/22/16 Levothyroxine [Synthroid] 25 mcg PO QDAC 11/07/12 09/22/16 Loratadine [Children's 10 mg PO DAILY 11/07/12 09/22/16 Clear-Atadine] Losartan Potassium [Cozaar] 50 mg PO DAILY 11/07/12 09/22/16 Omeprazole [PriLOSEC] 20 mg PO DAILY 11/07/12 09/22/16 Potassium Chloride 20 meq PO TITR 11/07/12 09/22/16 Albuterol [Ventolin Hfa] 2 puffs INH Q4H PRN 04/01/15 09/22/16 Gabapentin 1,200 mg ORAL QPM 04/01/15 09/22/16 HYDROcod/ACETAM 5/325 [Vicodin 1 - 2 tab ORAL Q4H PRN 04/01/15 09/22/16 5/325] amLODIPine [Norvasc] 5 mg ORAL DAILY 04/01/15 09/22/16 Atorvastatin [Lipitor] 40 mg PO DAILY 05/29/15 09/22/16 Insulin Glargine,Hum.rec.anlog 100 units SQ BID 05/29/15 09/22/16 [Lantus] diazePAM [Valium] 5 mg PO TID PRN #15 tablet 05/29/15 09/22/16 Azithromycin [Zithromax] 250 mg PO DAILY #6 tablet 08/21/16 09/22/16 predniSONE [Deltasone] 10 mg PO DAILY #26 tablet 08/21/16 09/22/16 Amox/Clav 875/125 [Augmentin] 1 each PO Q12H #20 tablet 08/24/16 09/22/16 Benzonatate [Tessalon] 100 - 200 mg PO TID PRN #20 capsule 08/24/16 09/22/16 HYDROcod/ACETAM 5/325 [Molena 5/325] 1 - 2 ea PO Q6H PRN #15 tablet 08/24/16 Ipratropium/Albuterol [Duoneb] 3 ml INH Q6H PRN #20 neb 08/24/16 09/22/16 Amox/Clav 875/125 [Augmentin] 1 each PO Q12H #28 tablet 09/19/16 09/22/16 Hydrocodone/Acetaminophen 1 - 2 each PO Q6HR PRN #20 tablet 09/19/16 09/22/16 [Hydrocodon-Acetaminophn 10-325] Promethazine HCl/Codeine 5 - 10 ml PO Q4HR PRN #240 ml 09/19/16 09/22/16 [Prometh-Codein 6.25-10 mg/5 ml] Benzonatate [Tessalon] 100 - 200 mg PO TID PRN #20 capsule 09/22/16 Oxycodone HCl/Acetaminophen 1 - 2 each PO Q6HR PRN #20 tablet 09/22/16 [Percocet 10-325 mg Tablet] Oxycodone HCl/Acetaminophen 1 - 2 each PO Q4HR PRN #20 tablet 09/25/16 [Percocet 10-325 mg Tablet] Promethazine HCl/Codeine 5 - 10 ml PO Q4HR PRN #240 ml 09/25/16 [Prometh-Codein 6.25-10 mg/5 ml] Oxycodone HCl/Acetaminophen 1 each PO Q6HR PRN #20 tablet 04/02/17 [Percocet 10-325 mg Tablet] Cephalexin [Keflex] 500 mg PO QID #40 capsule 04/22/17 HYDROcod/ACETAM 5/325 [Molena 5/325] 1 - 2 ea PO Q6H PRN #15 tablet 04/22/17 - Allergies Allergies/Adverse Reactions: Allergies Allergy/AdvReac Type Severity Reaction Status Date / Time pregabalin [From Lyrica] Allergy Intermediate unknown Verified 09/22/16 09:27 simvastatin [From Zocor] Allergy Intermediate Nausea Verified 09/22/16 09:27 sulfamethoxazole Allergy Intermediate unknown Verified 09/22/16 09:27 [From Septra] trimethoprim [From Septra] Allergy Intermediate unknown Verified 09/22/16 09:27 tetracycline [Tetracycline] Allergy Rash Verified 09/22/16 09:27 - Social History Does the pt smoke?: No Smoking Status: Never smoker Does the pt drink ETOH?: No Does the pt have substance abuse?: No - Immunizations Immunizations are current?: Yes - POLST Patient has POLST: No PD ED PE NORMAL - Vitals Vital signs reviewed: Yes - General General: Alert and oriented X 3, No acute distress - Extremities Extremities: Other (There is a wound that is bandaged on the right toe that he says is chronic and he is seeing wound care for. He has chronic venous stasis and chronic cellulitis to the mid calf and swelling of both feet without deformity. He is walking around in the wound in the room without a boot or splint on.) - Neuro Neuro: Alert and oriented X 3, Normal speech Results - Vitals Vitals: Vital Signs - 24 hr 04/22/17 10:53 Temperature 36.5 C Heart Rate 82 Respiratory 20 Rate Blood Pressure 139/61 H O2 Saturation 96 Oxygen O2 Source Room air PD MEDICAL DECISION MAKING - ED course ED course: He is here with a known foot fracture, predominantly social issues. I offered to explore putting him in a intermediate, he refused. He has to take care of his and does not have the financial resources for this. He requested a prescription for antibiotics and painkillers. He understands the importance of keeping the boot on, following up with orthopedics, and keeping it elevated. Departure - Departure Disposition: 01 Home, Self Care Clinical Impression: Foot fracture, right Qualifiers: Encounter type: subsequent encounter Fracture type: closed Fracture healing: with delayed healing Qualified Code(s): S92.901G - Unspecified fracture of right foot, subsequent encounter for fracture with delayed healing Condition: Good Record reviewed to determine appropriate education?: Yes Instructions: ED Fx Foot Prescriptions: Cephalexin [Keflex] 500 mg PO QID #40 capsule HYDROcod/ACETAM 5/325 [Molena 5/325] 1 - 2 ea PO Q6H PRN #15 tablet PRN Reason: Pain Comments: As discussed, for this to heal appropriately it is important to keep the boot on and to follow-up with your orthopedic surgeon as soon as possible, and to keep it elevated and not walk on it. Given your particular problems, I suspect you will not heal well if you continue to treat it as you have been. Return if worse.
== END 2017-04-22 13:05 | disposition home or self-care (01) ==
LOC: ED 10:41
DX: S92.901G Unspecified fracture of right foot, subsequent encounter for fracture with delayed healing (principal); Z91.19 Patient's noncompliance with other medical treatment and regimen; E66.01 Morbid (severe) obesity due to excess calories; E11.40 Type 2 diabetes mellitus with diabetic neuropathy, unspecified; I10 Essential (primary) hypertension; J44.9 Chronic obstructive pulmonary disease, unspecified; Z95.5 Presence of coronary angioplasty implant and graft; Z79.891 Long term (current) use of opiate analgesic
CPT/HCPCS: 99283

== ENCOUNTER 2017-04-30 11:15 | Outpatient (CLI) | payer MEDICARE, OTHER ==
--- NOTE | 2017-04-30 12:39 | CT Preliminary Report ---
Exam: CT LOWER EXTREMITY RIGHT W/O IMPRESSION: 1. Extensive midfoot fracture dislocation. 2. Dorsal and proximal dislocation of the medial and middle cuneiforms, first and second metatarsals articulating with the dorsal margin of the talus and navicular. 3. Dorsal and proximal dislocation of the third and fourth metatarsals located dorsal to the lateral cuneiform and cuboid. 4. Dorsal and lateral subluxation of the fifth metatarsal articulating at the dorsal lateral aspect o f the cuboid. 5. Numerous small comminuted fracture fragments appear to arise from the medial aspect of the navicul ar, distal aspect of the medial cuneiform, plantar aspect of the middle cuneiform as well as the base s of the second, third and fourth metatarsals, plantar, dorsal, distal and proximal aspects of the la teral cuneiform. [facility] SITE ID: [id number]
--- NOTE | 2017-04-30 12:58 | CT Report ---
EXAM: RIGHT HIP CT WITHOUT CONTRAST EXAM DATE: 04/30/2017 11:55 AM. CLINICAL HISTORY: Right foot Charcot joint, dislocation. COMPARISON: Radiographs 04/30/2017. TECHNIQUE: Thin-section axial images were acquired of the hip without contrast. Post-processing: Marie nal and sagittal reformats. Other: None. In accordance with CT protocol optimization, one or more of the following dose reduction techniques w ere utilized for this exam: automated exposure control, adjustment of mA and/or KV based on patient s ize, or use of iterative reconstructive technique. FINDINGS: Bones and Articular Surfaces: There is plantar tilt of the distal talus. The navicular is displaced i nferiorly with respect to the distal talus. Comminuted fracture fragments along the proximal medial a spect of the navicular. There is dislocation at the navicular medial cuneiform articulation. The medi al cuneiform is located directly dorsal to the navicular and articulates with the distal dorsal anneliese n of the talus. The first metatarsal is dislocated dorsally along with the medial cuneiform. The seco nd metatarsal and middle cuneiform are also dislocated dorsally and proximally. The middle cuneiform demonstrates comminuted fracture at the plantar and lateral aspect and articulates with the dorsal galvez rface of the distal talus. The base of the second metatarsal nearly articulates with the dorsal surfa ce of the navicular. The third, fourth, and fifth metatarsals are also dislocated dorsally and proxim ally. The proximal aspect of the third metatarsal is located approximately 1.1 cm dorsal to the dorsa l surface of the lateral cuneiform. The proximal aspect of the fourth metatarsal demonstrates small c omminuted fracture articulating with the dorsal margin of the distal cuboid. The fifth metatarsal art iculates with the superolateral margin of the cuboid. Joint space narrowing, marginal osteophytes and subchondral cyst formation at the first MTP joint. Small plantar calcaneal enthesophyte formation. Soft Tissues: Nonspecific soft tissue edema. There appears to be at least moderate tendinosis of the peroneus longus. Moderate atrophy and fatty replacement throughout the intrinsic foot musculature. Galvez bcutaneous edema most pronounced over the dorsum of the foot and throughout the ankle. IMPRESSION: 1. Extensive midfoot fracture dislocation. 2. Dorsal and proximal dislocation of the medial and middle cuneiforms, first and second metatarsals articulating with the dorsal margin of the talus and navicular. 3. Dorsal and proximal dislocation of the third and fourth metatarsals located dorsal to the lateral cuneiform and cuboid. 4. Dorsal and lateral subluxation of the fifth metatarsal articulating with the dorsal lateral aspect of the cuboid. 5. Numerous small comminuted fracture fragments appear to arise from the medial aspect of the navicul ar, distal aspect of the medial cuneiform, plantar aspect of the middle cuneiform, as well as the bas es of the second, third and fourth metatarsals, plantar, dorsal, distal and proximal aspects of the l ateral cuneiform. [facility] Referring Provider Line: [phone] SITE ID: [id number]
== END 2017-04-30 11:16 | disposition home or self-care (01) ==
LOC: DI 11:15
PROVIDERS: ATTEND Orthopaedic Surgery
DX: S93.324A Dislocation of tarsometatarsal joint of right foot, initial encounter (principal); S92.251A Displaced fracture of navicular [scaphoid] of right foot, initial encounter for closed fracture; S92.241A Displaced fracture of medial cuneiform of right foot, initial encounter for closed fracture; M79.671 Pain in right foot

== ENCOUNTER 2017-05-18 18:42 | Outpatient (CLI) | payer MEDICARE, OTHER | END 2017-05-18 18:43 | disposition critical access hospital (66) | LOC: EMS 18:42 | PROVIDERS: ATTEND Surgery | DX: R06.02 Shortness of breath (principal) | CPT/HCPCS: A0425; A0427 ==

== ENCOUNTER 2017-05-18 19:04 | Inpatient (IN) | payer MEDICARE, OTHER ==
[2017-05-18] MEDS ORDERED: IPRATROPIUM/ALBUTEROL 3 ML NEB INH STA (19:25)
[2017-05-18] MEDS ORDERED: SODIUM CHLORIDE 0.9% 1,000 ML IV ONE (19:26)
--- NOTE | 2017-05-18 19:26 | ED Physician Documentation ---
PD HPI DYSPNEA - Stated complaint Stated Complaint: SOA - Chief complaint Chief Complaint: Resp - History obtained from History obtained from: Patient, EMS - History of Present Illness Timing - onset during: Rest Timing - duration: Months (1) Timing - details: Gradual onset Pain level max: 0 Pain level now: 0 Improved by: O2 Associated symptoms: No: Fever, Chest pain / discomfort Recently seen: Not recently seen - Additional information Additional information: Patient is a 71-year-old gentleman with a history of COPD who has had difficulty breathing over the past month. He is unsure if he has CHF or not. States his legs are more swollen than usual. Denies any chest pain. Has not used nebulizers today. Denies any fever. States occasionally he coughs. Review of Systems Ten Systems: 10 systems reviewed and negative Constitutional: denies: Fever, Chills Ears: denies: Ear pain Nose: denies: Rhinorrhea / runny nose, Congestion Cardiac: denies: Chest pain / pressure Respiratory: reports: Dyspnea, Cough, Wheezing GI: denies: Abdominal Pain, Nausea, Vomiting, Diarrhea Skin: denies: Rash Musculoskeletal: denies: Neck pain, Back pain Neurologic: denies: Headache PD PAST MEDICAL HISTORY - Past Medical History Past Medical History: Yes Cardiovascular: Hypertension, High cholesterol, Coronary artery disease, [place] Respiratory: COPD, Shortness of breath Neuro: Peripheral neuropathy Endocrine/Autoimmune: Type 2 diabetes GI: GERD : Nocturia, Frequency, Kidney stones Psych: Anxiety, Panic attacks Musculoskeletal: Fibromyalgia, Chronic back pain - Past Surgical History Past Surgical History: Yes Cardiovascular: Coronary stent HEENT: Cataracts - Present Medications Home Medications: Ambulatory Orders Medication Instructions Recorded Confirmed Aspirin [Aspir 81] 81 mg PO DAILY 11/07/12 05/18/17 Carvedilol [Coreg] 25 mg PO BID 11/07/12 05/18/17 Clonidine HCl [Kapvay] 0.1 mg PO BID 11/07/12 05/18/17 DULoxetine [Cymbalta] 60 mg PO QPM 11/07/12 05/18/17 Furosemide [Lasix] 40 mg PO BID 11/07/12 05/18/17 Loratadine [Children's 10 mg PO DAILY 11/07/12 05/18/17 Clear-Atadine] Losartan Potassium [Cozaar] 50 mg PO DAILY 11/07/12 05/18/17 Omeprazole [PriLOSEC] 20 mg PO BID 11/07/12 05/18/17 Potassium Chloride 20 meq PO DAILY 11/07/12 05/18/17 Albuterol [Ventolin Hfa] 2 puffs INH Q4H PRN 04/01/15 05/18/17 Gabapentin 1,200 mg ORAL QPM 04/01/15 05/18/17 amLODIPine [Norvasc] 5 mg ORAL DAILY 04/01/15 05/18/17 Atorvastatin [Lipitor] 40 mg PO DAILY 05/29/15 05/18/17 Insulin Glargine,Hum.rec.anlog 100 units SQ BID 05/29/15 05/18/17 [Lantus] Ipratropium/Albuterol [Duoneb] 3 ml INH Q6H PRN #20 neb 08/24/16 05/18/17 Oxycodone HCl/Acetaminophen 1 - 2 each PO Q6HR PRN #20 tablet 09/22/16 05/18/17 [Percocet 10-325 mg Tablet] - Allergies Allergies/Adverse Reactions: Allergies Allergy/AdvReac Type Severity Reaction Status Date / Time pregabalin [From Lyrica] Allergy Intermediate unknown Verified 05/18/17 19:13 simvastatin [From Zocor] Allergy Intermediate Nausea Verified 05/18/17 19:13 sulfamethoxazole Allergy Intermediate unknown Verified 05/18/17 19:13 [From Septra] trimethoprim [From Septra] Allergy Intermediate unknown Verified 05/18/17 19:13 tetracycline [Tetracycline] Allergy Rash Verified 05/18/17 19:13 - Social History Does the pt smoke?: No Smoking Status: Former smoker Does the pt drink ETOH?: Yes ETOH Use: Liquor Does the pt have substance abuse?: Yes Substance Use and Type: Marijuana - Immunizations Immunizations are current?: Yes - POLST Patient has POLST: No PD ED PE NORMAL - Vitals Vital signs reviewed: Yes - General General: Alert and oriented X 3, Other (Appear short of breath, tachypneic and anxious) - HEENT HEENT: PERRL, Moist mucous membranes - Neck Neck: Supple, no meningeal sign - Cardiac Cardiac: RRR - Respiratory Respiratory: Other (Very diminished breath sounds bilaterally. Mild wheezing. Sounds very tight.) - Abdomen Abdomen: Soft, Non tender, Non distended - Derm Derm: Warm and dry - Extremities Extremities: Other (Diffuse edema to the bilateral lower extremities. Chronic and unchanged per patient) - Neuro Neuro: Alert and oriented X 3 - Psych Psych: Other (Anxious) Results - Vitals Vitals: Vital Signs - 24 hr 05/18/17 05/18/17 05/18/17 19:07 19:35 21:53 Temperature 36.5 C Heart Rate 93 88 92 Respiratory 26 H 28 H 18 Rate Blood Pressure 181/105 H 188/84 H O2 Saturation 98 100 Oxygen O2 Source Nasal cannula Oxygen Flow Rate 2 - EKG (time done) 1913 Rate: Rate (enter#) (96) Rhythm: NSR [place]: Normal Intervals: Normal NM QRS: Normal Ischemia: Normal ST segments - Labs Labs: Laboratory Tests 05/18/17 05/18/17 05/18/17 19:40 19:40 19:40 WBC 8.7 RBC 3.89 L Hgb 11.8 L Hct 36.0 L MCV 92.4 MCH 30.3 MCHC 32.8 RDW 14.7 Plt Count 202 MPV 6.8 L Neut # 6.2 Lymph # 1.4 L [place] # 0.9 Eos # 0.1 Baso # 0.1 Absolute Nucleated RBC 0.01 Nucleated RBC % 0.1 Sodium 139 Potassium 3.4 L Chloride 105 Carbon Dioxide 21 Anion Gap 13.0 BUN 18 Creatinine 1.1 Estimated GFR (MDRD) 66 L Glucose 117 H Calcium 9.0 Magnesium Total Bilirubin 1.4 H AST 60 H ALT 62 H Alkaline Phosphatase 117 Troponin I < 0.04 B-Natriuretic Peptide Total Protein 8.4 H Albumin 3.7 Globulin 4.7 H Albumin/Globulin Ratio 0.8 L Lipase 13 L 05/18/17 05/18/17 19:40 19:40 WBC RBC Hgb Hct MCV MCH MCHC RDW Plt Count MPV Neut # Lymph # [place] # Eos # Baso # Absolute Nucleated RBC Nucleated RBC % Sodium Potassium Chloride Carbon Dioxide Anion Gap BUN Creatinine Estimated GFR (MDRD) Glucose Calcium Magnesium 2.0 Total Bilirubin AST ALT Alkaline Phosphatase Troponin I B-Natriuretic Peptide 166 H Total Protein Albumin Globulin Albumin/Globulin Ratio Lipase - Rads (name of study) cxr Radiology: Prelim report reviewed, EMP read contemporaneously, See rad report ( No acute abnormality) PD MEDICAL DECISION MAKING - ED course Complexity details: reviewed old records, reviewed results, re-evaluated patient , considered differential, d/w patient, d/w biometrics consultant ED course: Patient is a 71-year-old gentleman who presents to the emergency department with what appears to be a COPD flare and anxiety. Given nebulizer treatments, steroids and Ativan. Feels better but still becomes extremely tachypneic with any movement even from the bed to a chair. Therefore will place him in observation for continued nebulizer treatments. Discussed the case with Dr. Allen, hospitalist who accepts. This document was made in part using voice recognition software. While efforts are made to proofread this document, sound alike and grammatical errors may occur. Departure - Departure Disposition: ED Place in Observation Clinical Impression: COPD exacerbation Condition: Stable
[2017-05-18 19:46] LABS: BASOPHILS # (AUTO) 0.1 10^3/uL (0.0-0.1); BASOPHILS % (AUTO) 0.9 %; EOSINOPHILS # (AUTO) 0.1 10^3/uL (0.0-0.7); EOSINOPHILS % (AUTO) 1.3 %; HGB - HEMOGLOBIN 11.8 g/dL (14.0-18.0); LYMPHOCYTES # (AUTO) 1.4 10^3/uL (1.5-3.5); LYMPHOCYTES % (AUTO) 15.9 %; MEAN CORPUSCULAR HEMOGLOBIN 30.3 pg (27.0-31.0); MEAN CORPUSCULAR HGB CONC 32.8 g/dL (32.0-36.0); MEAN CORPUSCULAR VOLUME 92.4 fL (80.0-94.0); MEAN PLATELET VOLUME 6.8 fL (7.4-11.4); MONOCYTES # (AUTO) 0.9 10^3/uL (0.0-1.0); MONOCYTES % (AUTO) 10.6 %; NEUTROPHILS # (AUTO) 6.2 10^3/uL (1.5-6.6); NEUTROPHILS % (AUTO) 71.3 %; PLT - PLATELET COUNT 202 10^3/uL (130-450); RED BLOOD COUNT 3.89 10^6/uL (4.70-6.10); RED CELL DISTRIBUTION WIDTH 14.7 % (12.0-15.0); WHITE BLOOD COUNT 8.7 x10^3/uL (4.8-10.8)
[2017-05-18 19:58] LABS: ALBUMIN 3.7 g/dL (3.2-5.5); ALBUMIN/GLOBULIN RATIO 0.8 (1.0-2.2); BILIRUBIN,TOTAL 1.4 mg/dL (0.2-1.0); CREATININE 1.1 mg/dL (0.6-1.2); TOTAL PROTEIN 8.4 g/dL (6.7-8.2)
[2017-05-18] MEDS ORDERED: LORazepam 2 MG/ML VIAL IVP STA (21:07)
[2017-05-18] MEDS ORDERED: predniSONE 20 MG TABLET PO STA (21:07)
--- NOTE | 2017-05-18 21:39 | XRAY Report ---
EXAM: CHEST RADIOGRAPHY EXAM DATE: 05/18/2017 08:53 PM. CLINICAL HISTORY: Dyspnea. COMPARISON: 03/06/2017. TECHNIQUE: 1 view. FINDINGS: Lungs/Pleura: No focal opacities evident. No pleural effusion. No pneumothorax. Mediastinum: Within exam limitations, the cardiomediastinal contour is normal. Other: None. IMPRESSION: Grossly clear. [facility] Referring Provider Line: [phone] SITE ID: [id number]
[2017-05-18] MEDS ORDERED: ALBUTEROL NEB 2.5 MG/3 ML INH STA (23:00)
[2017-05-18] MEDS ORDERED: TEMAZEPAM 15 MG CAPSULE PO PRN (23:04)
[2017-05-18] MEDS ORDERED: IBUPROFEN 600 MG TABLET PO PRN (23:04)
[2017-05-18] MEDS ORDERED: PROCHLORPERAZINE 10 MG/2 ML VIAL IVP PRN (23:04)
[2017-05-18] MEDS ORDERED: NON FORMULARY MED (Oxycodone Hcl/Acetaminophen [Percocet 10-325 Mg Tablet] 1 EACH) PO PRN (23:08)
[2017-05-18] MEDS: LEVALBUTEROL 1.25 MG/3 ML NEB INH SCH (23:15)
[2017-05-18] MEDS ORDERED: methylPREDNISolone SUCCINATE 40 MG/ML VIAL IVP SCH (23:45)
[2017-05-18] MEDS ORDERED: IPRATROPIUM/ALBUTEROL RESPIMAT INHALER INH SCH (23:45)
[2017-05-19] MEDS: LEVALBUTEROL 1.25 MG/3 ML NEB INH SCH ×5 (02:00→21:00)
[2017-05-19] MEDS: MORPHINE 2 MG/ML CARPUJECT IVP PRN ×2 (02:02→05:04)
[2017-05-19] MEDS: SODIUM CHLORIDE FLUSH 0.9% 10 ML SYRINGE IVP SCH ×3 (02:03→20:14)
[2017-05-19] MEDS ORDERED: IOPAMIDOL-300 100 ML VIAL ONE (02:25)
[2017-05-19] MEDS ORDERED: A & D OINTMENT 5 GM PACKET TOP PRN (02:57)
[2017-05-19] MEDS: oxyCOD/ACETAMIN 5 MG/325 MG TABLET PO PRN ×2 (03:23→20:12)
[2017-05-19] MEDS: oxyCODONE 5 MG TABLET PO PRN ×3 (03:24→20:12)
[2017-05-19] MEDS: SODIUM CHLORIDE FLUSH 0.9% 10 ML SYRINGE IVP PRN ×2 (05:04→06:56)
[2017-05-19 05:45] LABS: BASOPHILS % (AUTO) 0.3 %; EOSINOPHILS % (AUTO) 0.1 %; HGB - HEMOGLOBIN 11.6 g/dL (14.0-18.0); LYMPHOCYTES # (AUTO) 0.8 10^3/uL (1.5-3.5); LYMPHOCYTES % (AUTO) 12.5 %; MEAN CORPUSCULAR HEMOGLOBIN 30.3 pg (27.0-31.0); MEAN CORPUSCULAR HGB CONC 32.6 g/dL (32.0-36.0); MEAN PLATELET VOLUME 6.9 fL (7.4-11.4); MONOCYTES # (AUTO) 0.2 10^3/uL (0.0-1.0); MONOCYTES % (AUTO) 2.4 %; NEUTROPHILS # (AUTO) 5.5 10^3/uL (1.5-6.6); NEUTROPHILS % (AUTO) 84.7 %; PLT - PLATELET COUNT 191 10^3/uL (130-450); RED BLOOD COUNT 3.82 10^6/uL (4.70-6.10); RED CELL DISTRIBUTION WIDTH 14.4 % (12.0-15.0); WHITE BLOOD COUNT 6.5 x10^3/uL (4.8-10.8)
[2017-05-19 05:53] LABS: CALCIUM 8.8 mg/dL (8.5-10.3); CREATININE 1.2 mg/dL (0.6-1.2); MAGNESIUM 2.1 mg/dL (1.7-2.8)
[2017-05-19] MEDS: POTASSIUM CHLOR 10 MEQ/100 ML 10 MEQ/100 ML BAG IV SCH ×2 (05:54→05:55)
--- NOTE | 2017-05-19 06:23 | HISTORY & PHYSICAL EXAMINATION ---
DATE OF SERVICE: 05/18/2017 Physician: Tiara Machado MD HISTORY OF PRESENT ILLNESS: This is a 71-year-old white male with a history of COPD on an inhaler and a nebulizer, has never required home O2, has a history of prior CT with coronary stenting to the RCA, he believes, and he may or may not have a history of CHF, follows with a coremaker experimental that he sees in [place], who comes down from [place]. The patient also has a history of obesity,venous stasis, peripheral neuropathy, GERD, kidney stones, panic attacks and anxiety, nocturia, chronic back pain. The patient presents with shortness of breath that is worse today after he took a 24-hour trip by car alone from [place] down to [place] to "get a break from his " with whom he had an argument. He decided to return when he saw that the area was windy and he was also more short of breath. He stopped on his way to eat and states that he was short of breath even eating the food and walking to the bathroom in the restaurant. He drove home to [place] , but then came to this emergency room. His shortness of breath has been slowly worsening over 1 month, he states. There has been no fever, cough, wheezing. There is orthopnea, which is worsening and leg edema that is worsening. Today, he has pleuritic chest pain anteriorly. The patient states there has been a cough for many years that once made him "fracture his ribs and tear his cartilage of his rib cage." In the emergency room, he was noted to have tight respirations and scattered wheezes and was given an inhaler and had some improvement and is now being hospitalized for his shortness of breath. PAST MEDICAL HISTORY: Obesity, diabetes on insulin, COPD, old CT, coronary artery disease with stenting, possible CHF, hypertension, hyperlipidemia, peripheral neuropathy, kidney stones, nocturia, back pain, panic attacks with anxiety. ALLERGIES 1. LYRICA. 2. ZOCOR. 3. SEPTRA. 4. TETRACYCLINE. MEDICATIONS: At home 1. Baby aspirin daily. 2. Coreg 25 p.o. b.i.d. 3. Clonidine 0.1 mg p.o. b.i.d. 4. Cymbalta 60 mg q.p.m. 5. Lasix 40 mg b.i.d. 6. Loratadine 10 mg p.o. daily. 7. Cozaar 50 mg p.o. daily. 8. Prilosec 20 mg p.o. b.i.d. 9. Potassium 20 mEq p.o. daily. 10. Ventolin inhaler 2 puffs q. 4 hours p.r.n. 11. Gabapentin 1200 mg q.p.m. 12. Norvasc 5 mg p.o. daily. 13. Lipitor 40 mg p.o. daily. 14. Lantus insulin 100 mg subcutaneously b.i.d. 15. DuoNeb inhaler q. 6 hours p.r.n. 16. Percocet p.r.n. pain. FAMILY HISTORY: No inherited diseases. SOCIAL HISTORY: The patient quit smoking in 2002, which is when he had his CT. He drinks alcohol socially, uses liquor. He has used marijuana in the past. He lives with his and she has dementia. He is retired. REVIEW OF SYSTEMS: A comprehensive review of systems was performed and the pertinent positives are above. The patient also reports the following: Approximately 6 weeks ago, he was in some type of accident and he came to the emergency room and a fracture of his right foot was found for which he has been on pain medicine only. During these past weeks, he is less active mostly sitting and because of this, he has developed pain in the sacral area, but no discharge from that area such as bleeding or purulence. He has not sought medical attention for that. PHYSICAL EXAMINATION GENERAL: Obese white male. He is in mild respiratory distress with speaking. Head of the bed is elevated, blood pressure 170/80, heart rate is 95, in sinus rhythm. O2 saturation is 99% on 2 liters nasal cannula, afebrile. HEENT: Unremarkable. Male pattern baldness. Oral mucosa is moist. NECK: Obese and I cannot rule out JVD. No carotid bruits or thyromegaly. CHEST: Clear with good air movement everywhere with no rales or wheezes. HEART: Sounds are distant. ABDOMEN: Obese with a pannus. I cannot rule out ascites, or organomegaly. Normal bowel sounds. RECTUM: 3 blebs near anus and skin red, not swollen. EXTREMITIES: marked venous stasis changes. The medial aspect of the right foot is swollen, more than the left. There is 1+ edema bilaterally to the knees. NEUROLOGIC: Intact. LABORATORY DATA: Sodium 139, potassium 3.4, BUN 18, creatinine 1.1, magnesium 2.0, AST 60, ALT 62. Troponin not detectable at less than 0.04. BNP 166, white blood count 8.7 with a normal differential. Hemoglobin 11.8, platelet count normal at 202. No INR was done. Chest x-ray within normal limits with normal cardiac size and no findings in the lung parenchyma. EKG: Normal sinus rhythm and within normal limits. Compared to an old EKG, there was early RS transition on all his prior EKGs. IMPRESSION/DIAGNOSES 1. Shortness of breath with etiology unclear at this point. This may be a COPD exacerbation, given the exam in the ER; or congestive heart failure because of the slowly progressive worsening with orthopnea and leg edema, but also rule out pulmonary embolism given his pleuritic pain, car trip and recent sedentary status due to foot fracture. 2. Diabetes, on insulin 3. Old myocardial infarction and coronary artery disease. 4. Sacral pain, possible irritation from pressure. 5. Right foot fracture with asymmetrical swelling and persistent pain. 6. Venous stasis changes. 7. Morbid obesity with body mass index 47. 8. Hypokalemia. PLAN: Placed the patient in observation on telemetry. Cycle troponins. Obtain an Echo to evaluate left ventricular and right ventricular ejection fraction and pulmonary artery pressure. [place] Solu-Medrol, nebulizers and short-acting rescue inhalers. Correct his potassium. Follow his electrolytes, creatinine and magnesium, and start gentle diuresis, with Lasix 40 IV daily. Treat his foot pain. Obtain a CT angio of the chest to rule out pulmonary embolism. Try A&D ointment to the perianal area. DEEP VENOUS THROMBOSIS PROPHYLAXIS: Lovenox. CODE STATUS: FULL CODE. ATTESTATION: The patient is expected to be discharged or transferred to another facility within 96 hours: Yes. TD: 05/19/2017 06:21 MTDEdward
[2017-05-19 06:26] LABS: HEMOGLOBIN A1C 0.73 g/dL; HEMOGLOBIN A1C % 7.3 % (4.6-6.2)
[2017-05-19] MEDS ORDERED: IOPAMIDOL-300 100 ML VIAL IVP ONE (06:30)
[2017-05-19] MEDS: PANTOPRAZOLE 40 MG TABLET PO SCH ×2 (06:55→16:09)
[2017-05-19] MEDS: FUROSEMIDE 40 MG/4 ML VIAL IVP SCH ×2 (06:56→08:45)
--- NOTE | 2017-05-19 07:15 | CT Report ---
EXAM: CT ANGIOGRAM CHEST EXAM DATE: 05/19/2017 06:31 AM. CLINICAL HISTORY: Shortness of breath. COMPARISON: 09/19/2016. TECHNIQUE: Routine helical imaging was performed through the chest in the pulmonary arterial phase. I V Contrast: Nonionic. Reconstructions: Coronal 3-D MIP reconstructions.Sagittal and coronal. In accordance with CT protocol optimization, one or more of the following dose reduction techniques w ere utilized for this exam: automated exposure control, adjustment of mA and/or KV based on patient s ize, or use of iterative reconstructive technique. FINDINGS: Pulmonary Arteries: Diagnostic quality: Adequate through the segmental arteries. No evidence for acute or chronic pulmona ry emboli. No evidence of right heart strain. Lungs/Pleura: Bibasilar atelectasis. Minimal pulmonary edema not excluded. No pleural effusion. No pn eumothorax. Mediastinum: Mild cardiomegaly. Coronary artery calcifications. Normal sized mediastinal lymph nodes. Thoracic Aorta: Ascending aorta measures 3.6 cm. Mild to moderate aortic atherosclerosis. No aortic d issection. Upper Abdomen: Fatty liver with nodular margin suggesting cirrhosis. Splenomegaly measuring 14.6 cm. Old rib fractures. Other: None. IMPRESSION: 1. No pulmonary emboli seen. 2. Mild cardiomegaly with coronary artery calcifications. 3. Bibasilar atelectasis. Minimal interstitial edema not excluded. 4. Cirrhosis and splenomegaly. [facility] Referring Provider Line: [phone] SITE ID: [id number]
[2017-05-19] MEDS ORDERED: POTASSIUM CHLORIDE 20 MEQ TABLET PO SCH (08:00)
[2017-05-19] MEDS: INSULIN GLARGINE 300 UNIT/3 ML PEN SUBQ SCH ×2 (08:43→20:16)
[2017-05-19] MEDS: INSULIN ASPART 300 UNIT/3 ML PEN SUBQ SCH ×5 (08:44→20:16)
[2017-05-19] MEDS: POLYETHYLENE GLYCOL 3350 17 GM PACKET PO SCH (08:45)
[2017-05-19] MEDS: ENOXAPARIN 40 MG/0.4 ML SYRINGE SUBQ SCH (08:45)
[2017-05-19] MEDS: methylPREDNISolone SUCCINATE 40 MG/ML VIAL IVP SCH ×2 (08:45→16:09)
[2017-05-19] MEDS: LORATADINE 10 MG TABLET PO SCH (08:46)
[2017-05-19] MEDS: FAMOTIDINE 20 MG TABLET PO SCH (08:46)
[2017-05-19] MEDS: CARVEDILOL 12.5 MG TABLET PO SCH ×2 (08:46→20:11)
[2017-05-19] MEDS: cloNIDine 0.1 MG TABLET PO SCH ×2 (08:47→20:12)
[2017-05-19] MEDS: LOSARTAN 50 MG TABLET PO SCH (08:47)
[2017-05-19] MEDS: ASPIRIN EC 81 MG TABLET PO SCH (08:47)
[2017-05-19] MEDS: amLODIPine 5 MG TABLET PO SCH (08:47)
[2017-05-19] MEDS ORDERED: INSULIN GLARGINE HUM REC ANLOG 100 UNIT SQ SCH (09:00)
[2017-05-19] MEDS ORDERED: FUROSEMIDE 40 MG TABLET PO SCH (09:00)
[2017-05-19] MEDS ORDERED: ATORVASTATIN 10 MG TABLET PO SCH (09:00)
[2017-05-19] MEDS ORDERED: LORATADINE 10 MG PO SCH (09:00)
[2017-05-19] MEDS ORDERED: CLONIDINE HCL 0.1 MG PO SCH (09:00)
[2017-05-19] MEDS ORDERED: NON FORMULARY MED (Potassium Chloride [Potassium Chloride] 20 MEQ) PO SCH (09:00)
[2017-05-19] MEDS ORDERED: LOSARTAN POTASSIUM 50 MG PO SCH (09:00)
[2017-05-19] MEDS ORDERED: NON FORMULARY MED (Omeprazole [Prilosec] 20 MG) PO SCH (09:00)
[2017-05-19] MEDS: LORazepam 0.5 MG TABLET PO PRN ×2 (11:19→16:09)
[2017-05-19] MEDS: MINERAL OIL/HYDROPHIL PETROLAT 454 GM JAR TOP SCH ×2 (11:21→20:14)
[2017-05-19] MEDS: SPIRONOLACTONE 25 MG TABLET PO SCH (13:44)
[2017-05-19] MEDS: SODIUM CHLORIDE 0.65% NASAL SPRAY NAS SCH ×2 (13:45→20:14)
--- NOTE | 2017-05-19 14:57 | PROVIDER PROGRESS NOTE ---
Subjective - Prog Note Date Prog Note Date: 05/19/17 Prog Note Time: 12:00 - Subjective Pt reports feeling: Improved Subjective: Edil notes that he is still feeling dizziness when bending over. He denies SOB , chest pain, N/V or a new cough. He will stay one more night to enhance fluid balance. Current Medications - Current Medications Current Medications: Active Medications Amlodipine Besylate (Norvasc) 10 mg PO DAILY [facility] Aspirin (Ecotrin) 81 mg PO DAILY [facility] Last Admin: 05/20/17 08:27 Dose: 81 mg Atorvastatin Calcium (Lipitor) 40 mg PO DAILY [facility] Last Admin: 05/20/17 08:26 Dose: 40 mg Carvedilol (Coreg) 25 mg PO BID [facility] Last Admin: 05/20/17 08:26 Dose: 25 mg Clonidine HCl (Catapres) 0.1 mg PO BID [facility] Last Admin: 05/20/17 08:26 Dose: 0.1 mg Duloxetine HCl (Cymbalta) 60 mg PO QPM [facility] Last Admin: 05/19/17 20:12 Dose: 60 mg Emollient Ointment (Hydrophor) 1 applic TOP BID [facility] Last Admin: 05/20/17 08:32 Dose: 1 applic Enoxaparin Sodium (Lovenox) 40 mg SUBQ BID [facility] Famotidine (Pepcid) 20 mg PO DAILY [facility] Last Admin: 05/20/17 08:27 Dose: 20 mg Furosemide (Lasix) 40 mg PO BIDDIURETIC [facility] Last Admin: 05/20/17 09:32 Dose: 40 mg Gabapentin (Neurontin) 1,200 mg PO QPM [facility] Last Admin: 05/19/17 20:11 Dose: 1,200 mg Ibuprofen (Motrin) 600 mg PO Q6HR PRN PRN Reason: Pain 1 to 4 Insulin Aspart (Novolog) 1 - 9 unit SUBQ 0800,1200,1700,2100 [facility] PRN Reason: Protocol Last Admin: 05/20/17 08:29 Dose: 1 unit Insulin Glargine (Lantus Solostar) 100 unit SUBQ BID [facility] Last Admin: 05/20/17 08:28 Dose: 100 unit Levalbuterol HCl (Xopenex) 1.25 mg INH QID [facility] Last Admin: 05/20/17 08:08 Dose: 1.25 mg Loratadine (Claritin) 10 mg PO DAILY [facility] Last Admin: 05/20/17 08:26 Dose: 10 mg Lorazepam (Ativan) 0.5 mg PO Q6H PRN PRN Reason: Anxiety Last Admin: 05/19/17 16:09 Dose: 0.5 mg Losartan Potassium (Cozaar) 50 mg PO DAILY [facility] Last Admin: 05/20/17 08:27 Dose: 50 mg Morphine Sulfate (Morphine (Carpuject)) 2 mg IVP Q2HR PRN PRN Reason: Dyspnea Last Admin: 05/19/17 05:04 Dose: 2 mg Oxycodone HCl (Roxicodone) 5 mg PO Q6H PRN PRN Reason: PAIN Last Admin: 05/19/17 20:12 Dose: 5 mg Oxycodone/Acetaminophen (Percocet 5 Mg/325 Mg) 1 tab PO Q6H PRN PRN Reason: PAIN Last Admin: 05/20/17 01:51 Dose: 1 tab [facility] Last Admin: 05/20/17 06:06 Dose: 40 mg Polyethylene Glycol (Miralax) 17 gm PO DAILY [facility] Last Admin: 05/20/17 08:25 Dose: 17 gm [facility]) [facility] [place] [facility] [place] Admin: 05/20/17 09:30 Dose: 40 mg Prochlorperazine Edisylate (Compazine Inj) 10 mg IVP Q6HR PRN PRN Reason: Nausea / Vomiting Sodium Chloride (Beltrami) 2 sprays MAN BID [facility] Last Admin: 05/20/17 08:32 Dose: 2 sprays Spironolactone (Aldactone) 25 mg PO DAILY [facility] Last Admin: 05/20/17 08:26 Dose: 25 mg Temazepam (Restoril) 15 mg PO QPM PRN PRN Reason: Insomnia Vitamin A/Vitamin D (Vitamin A & D Ointment) 1 applic TOP PRN PRN PRN Reason: Skin Care Last Admin: 05/19/17 03:24 Dose: 1 applic Aspirin [Aspir 81] 81 mg PO DAILY 11/07/12 Carvedilol [Coreg] 25 mg PO BID 11/07/12 Clonidine HCl [Kapvay] 0.1 mg PO BID 11/07/12 DULoxetine [Cymbalta] 60 mg PO QPM 11/07/12 Furosemide [Lasix] 40 mg PO BID 11/07/12 Loratadine [Children's Clear-Atadine] 10 mg PO DAILY 11/07/12 Losartan Potassium [Cozaar] 50 mg PO DAILY 11/07/12 Omeprazole [PriLOSEC] 20 mg PO BID 11/07/12 Potassium Chloride 20 meq PO Q2D@0800 11/07/12 Albuterol [Ventolin Hfa] 2 puffs INH Q4H PRN 04/01/15 Gabapentin 1,200 mg ORAL QPM 04/01/15 amLODIPine [Norvasc] 5 mg ORAL DAILY 04/01/15 Atorvastatin [Lipitor] 40 mg PO DAILY 05/29/15 Insulin Glargine,Hum.rec.anlog [Lantus] 100 units SQ BID 05/29/15 Oxycodone HCl/Acetaminophen [Oxycodone-Acetaminophen 10-325] 1 tab PO BID PRN Objective - Vital Signs/Intake & Output Reviewed Vital Signs: Yes Vital Signs: Vital Signs x48h Temp Pulse Pulse Resp BP Pulse Ox 05/19/17 14:00 87 18 05/19/17 11:11 36.6 C 88 16 162/80 H 93 05/19/17 10:15 90 18 05/19/17 07:46 36.6 C 91 16 169/82 H 95 Intake & Output: Intake & Output 05/16/17 05/17/17 05/18/17 05/19/17 23:59 23:59 23:59 23:59 Intake Total 2645 Output Total 3775 Balance -1130 - Objective General Appearance: positive: No acute distress, Anxious Eyes Bilateral: positive: Normal inspection, PERRL ENT: positive: ENT inspection nml, Pharynx nml, Dry mucous membranes Neck: positive: Nml inspection, Thyroid nml, No JVD, Trachea midline, Stiff neck , Other (large neck circumferance.) Respiratory: positive: Chest non-tender, No respiratory distress, Other (coarse crackles.) Cardiovascular: positive: No gallop, Systolic murmur, Decreased pulse(s) Peripheral Pulses: 2+ Radial (R), 2+ Radial (L) Abdomen: positive: Non-tender, Nml bowel sounds, Hepatomegaly, Other (obese, soft.) Back: positive: Nml inspection Skin: positive: No rash, Warm, Dry Extremities: positive: Non-tender, Pedal edema, Joint swelling Neurologic/Psychiatric: positive: Oriented x3, CN's nml (2-12), Motor nml, Sensation nml, Depressed mood/affect Reflexes: Bicep (R): 2+, Bicep (L): 2+ - Lab Results Fish Bones: 05/20/17 06:00 05/20/17 06:00 Other Labs: Lab Results x24hrs 05/19/17 05/19/17 05/19/17 Range/Units 13:32 05:27 05:27 WBC 6.5 (4.8-10.8) x10^3/uL RBC 3.82 L (4.70-6.10) 10^6/uL Hgb 11.6 L (14.0-18.0) g/dL Hct 35.5 L (42.0-52.0) % MCV 93.0 (80.0-94.0) fL MCH 30.3 (27.0-31.0) pg MCHC 32.6 (32.0-36.0) g/dL RDW 14.4 (12.0-15.0) % Plt Count 191 (130-450) 10^3/uL MPV 6.9 L (7.4-11.4) fL Neut # 5.5 (1.5-6.6) 10^3/uL Lymph # 0.8 L (1.5-3.5) 10^3/uL [place] # 0.2 (0.0-1.0) 10^3/uL Eos # 0.0 (0.0-0.7) 10^3/uL Baso # 0.0 (0.0-0.1) 10^3/uL Absolute Nucleated RBC 0.00 x10^3/uL Nucleated RBC % 0.0 /100WBC Sodium (135-145) mmol/L Potassium (3.5-5.0) mmol/L Chloride (101-111) mmol/L Carbon Dioxide (21-32) mmol/L Anion Gap (6-13) BUN (6-20) mg/dL Creatinine (0.6-1.2) mg/dL Estimated GFR (MDRD) (>89) Glucose (70-100) mg/dL Glycated Hemoglobin (4.6-6.2) % Estim Average Glucose (70-100) Calcium (8.5-10.3) mg/dL Magnesium (1.7-2.8) mg/dL Troponin I < 0.04 < 0.04 (<0.49) ng/mL 18 05/19/17 Range/Units 05:27 05:27 WBC (4.8-10.8) x10^3/uL RBC (4.70-6.10) 10^6/uL Hgb (14.0-18.0) g/dL Hct (42.0-52.0) % MCV (80.0-94.0) fL MCH (27.0-31.0) pg MCHC (32.0-36.0) g/dL RDW (12.0-15.0) % Plt Count (130-450) 10^3/uL MPV (7.4-11.4) fL Neut # (1.5-6.6) 10^3/uL Lymph # (1.5-3.5) 10^3/uL [place] # (0.0-1.0) 10^3/uL Eos # (0.0-0.7) 10^3/uL Baso # (0.0-0.1) 10^3/uL Absolute Nucleated RBC x10^3/uL Nucleated RBC % /100WBC Sodium 137 (135-145) mmol/L Potassium 3.7 (3.5-5.0) mmol/L Chloride 105 (101-111) mmol/L Carbon Dioxide 19 L (21-32) mmol/L Anion Gap 13.0 (6-13) BUN 19 (6-20) mg/dL Creatinine 1.2 (0.6-1.2) mg/dL Estimated GFR (MDRD) 60 L (>89) Glucose 237 H (70-100) mg/dL Glycated Hemoglobin 7.3 H (4.6-6.2) % Estim Average Glucose 163 H (70-100) Calcium 8.8 (8.5-10.3) mg/dL Magnesium 2.1 (1.7-2.8) mg/dL Troponin I (<0.49) ng/mL - Diagnostic Imaging Diagnostic Imaging Results: positive: Final report reviewed Diagnostic Imaging Comments: EXAM: CT ANGIOGRAM CHEST EXAM DATE: 05/19/2017 06:31 AM. CLINICAL HISTORY: Shortness of breath. COMPARISON: 09/19/2016. TECHNIQUE: Routine helical imaging was performed through the chest in the pulmonary arterial phase. IV Contrast: Nonionic. Reconstructions: Coronal 3-D MIP reconstructions.Sagittal and coronal. In accordance with CT protocol optimization, one or more of the following dose reduction techniques were utilized for this exam: automated exposure control, adjustment of mA and/or KV based on patient size, or use of iterative reconstructive technique. FINDINGS: Pulmonary Arteries: Diagnostic quality: Adequate through the segmental arteries. No evidence for acute or chronic pulmonary emboli. No evidence of right heart strain. Lungs/Pleura: Bibasilar atelectasis. Minimal pulmonary edema not excluded. No pleural effusion. No pneumothorax. Mediastinum: Mild cardiomegaly. Coronary artery calcifications. Normal sized mediastinal lymph nodes. Thoracic Aorta: Ascending aorta measures 3.6 cm. Mild to moderate aortic atherosclerosis. No aortic dissection. Upper Abdomen: Fatty liver with nodular margin suggesting cirrhosis. Splenomegaly measuring 14.6 cm. Old rib fractures. Other: None. IMPRESSION: 1. No pulmonary emboli seen. 2. Mild cardiomegaly with coronary artery calcifications. 3. Bibasilar atelectasis. Minimal interstitial edema not excluded. 4. Cirrhosis and splenomegaly. EXAM: CHEST RADIOGRAPHY EXAM DATE: 05/18/2017 08:53 PM. CLINICAL HISTORY: Dyspnea. COMPARISON: 03/06/2017. TECHNIQUE: 1 view. FINDINGS: Lungs/Pleura: No focal opacities evident. No pleural effusion. No pneumothorax. Mediastinum: Within exam limitations, the cardiomediastinal contour is normal. Other: None. IMPRESSION: Grossly clear. Assessment/Plan - Problem List (1) Shortness of breath Impression: When patient presented to the ED, he required supplemental oxygen. He soon weaned off oxygen and was on room air for this exam. Plan: Monitor oxygen saturation. (2) COPD exacerbation Impression: Patient has a long standing history of COPD likely from years of smoking and is noted to have quit in 2002 when he suffered from his first RI. He now presents with a cough, and activity intolerance. Plan: Continue treatment with IV steroids and plan for a tapering dose at home. (3) Insulin dependent diabetes mellitus Impression: Patient notes to have diabetes for several years. He admits to no schedule at home for checking blood sugars. He states that he eats a high-fat, high-sugar diet because his in-laws eat that way based on their nationality. Plan: Continue blood sugar checks, SSI, and scheduled Lantus. (4) Pathological fracture, right foot, sequela Impression: Patient reports that about 6 weeks ago he presented to the ED as he had some type of accident involving his right foot. Imaging at that time confirmed a fracture. During the past few weeks he has been sitting, with less activity, which as caused him to develop sacral pain. He states that he is to see orthopedics later this week to see about possible surgery. Plan: Continue with aggressive diuresis and pain control. (5) Venous stasis dermatitis of both lower extremities Impression: Patient has a long time history of morbid obesity which may have led to worsening of edema and poor circulation. Patient is at an increased risk of vascular disease given his years of tobacco abuse. Plan: Elevated BLEs and continue with aggressive diuresis. (6) Morbid obesity with BMI of 40.0-44.9, adult Impression: Patient has a current BMI of 42.6. He struggles with fluid balance and is non- compliant with his diet. Plan: A residential weight loss program may prove beneficial especially given his recent foot injury/fracture.
[2017-05-19] MEDS ORDERED: GABAPENTIN 400 MG CAPSULE PO SCH (21:00)
[2017-05-19] MEDS ORDERED: DULoxetine 30 MG CAPSULE PO SCH (21:00)
[2017-05-19] MEDS ORDERED: GABAPENTIN 300 MG CAPSULE PO SCH (21:00)
[2017-05-19] MEDS ORDERED: LORazepam 2 MG/ML VIAL IVP PRN (21:47)
[2017-05-20] MEDS: SODIUM CHLORIDE FLUSH 0.9% 10 ML SYRINGE IVP PRN ×2 (01:48→08:44)
[2017-05-20] MEDS: methylPREDNISolone SUCCINATE 40 MG/ML VIAL IVP SCH ×2 (01:48→08:44)
[2017-05-20] MEDS: oxyCOD/ACETAMIN 5 MG/325 MG TABLET PO PRN (01:51)
[2017-05-20] MEDS: PANTOPRAZOLE 40 MG TABLET PO SCH (06:06)
[2017-05-20] MEDS: SODIUM CHLORIDE FLUSH 0.9% 10 ML SYRINGE IVP SCH (06:11)
[2017-05-20 06:15] LABS: HGB - HEMOGLOBIN 11.4 g/dL (14.0-18.0); LYMPHOCYTES # (AUTO) 0.9 10^3/uL (1.5-3.5); LYMPHOCYTES % (AUTO) 10.5 %; MEAN CORPUSCULAR HEMOGLOBIN 30.4 pg (27.0-31.0); MEAN CORPUSCULAR HGB CONC 32.7 g/dL (32.0-36.0); MEAN CORPUSCULAR VOLUME 92.7 fL (80.0-94.0); MEAN PLATELET VOLUME 6.9 fL (7.4-11.4); MONOCYTES # (AUTO) 0.7 10^3/uL (0.0-1.0); MONOCYTES % (AUTO) 7.7 %; NEUTROPHILS # (AUTO) 7.2 10^3/uL (1.5-6.6); NEUTROPHILS % (AUTO) 81.8 %; PLT - PLATELET COUNT 176 10^3/uL (130-450); RED BLOOD COUNT 3.75 10^6/uL (4.70-6.10); RED CELL DISTRIBUTION WIDTH 14.3 % (12.0-15.0); WHITE BLOOD COUNT 8.8 x10^3/uL (4.8-10.8)
[2017-05-20 06:26] LABS: ALBUMIN 3.8 g/dL (3.2-5.5); ALBUMIN/GLOBULIN RATIO 0.9 (1.0-2.2); BILIRUBIN,TOTAL 0.7 mg/dL (0.2-1.0); CALCIUM 8.8 mg/dL (8.5-10.3); CREATININE 1.5 mg/dL (0.6-1.2); TOTAL PROTEIN 8.1 g/dL (6.7-8.2)
[2017-05-20 07:31] VITALS: BP 170/84
[2017-05-20] MEDS: LEVALBUTEROL 1.25 MG/3 ML NEB INH SCH ×2 (08:08→13:41)
[2017-05-20] MEDS: POLYETHYLENE GLYCOL 3350 17 GM PACKET PO SCH (08:25)
[2017-05-20] MEDS: LORATADINE 10 MG TABLET PO SCH (08:26)
[2017-05-20] MEDS: CARVEDILOL 12.5 MG TABLET PO SCH (08:26)
[2017-05-20] MEDS: cloNIDine 0.1 MG TABLET PO SCH (08:26)
[2017-05-20] MEDS: SPIRONOLACTONE 25 MG TABLET PO SCH (08:26)
[2017-05-20] MEDS: ASPIRIN EC 81 MG TABLET PO SCH (08:27)
[2017-05-20] MEDS: LOSARTAN 50 MG TABLET PO SCH (08:27)
[2017-05-20] MEDS: FAMOTIDINE 20 MG TABLET PO SCH (08:27)
[2017-05-20] MEDS: amLODIPine 5 MG TABLET PO SCH (08:27)
[2017-05-20] MEDS: INSULIN GLARGINE 300 UNIT/3 ML PEN SUBQ SCH (08:28)
[2017-05-20] MEDS: INSULIN ASPART 300 UNIT/3 ML PEN SUBQ SCH (08:29)
[2017-05-20] MEDS: ENOXAPARIN 40 MG/0.4 ML SYRINGE SUBQ SCH (08:29)
[2017-05-20] MEDS: MINERAL OIL/HYDROPHIL PETROLAT 454 GM JAR TOP SCH (08:32)
[2017-05-20] MEDS: SODIUM CHLORIDE 0.65% NASAL SPRAY NAS SCH (08:32)
[2017-05-20] MEDS: FUROSEMIDE 40 MG/4 ML VIAL IVP SCH (08:44)
[2017-05-20] MEDS ORDERED: ATORVASTATIN 40 MG TABLET PO SCH (09:00)
[2017-05-20] MEDS ORDERED: amLODIPine 5 MG TABLET PO SCH (09:15)
[2017-05-20] MEDS: FUROSEMIDE 40 MG TABLET PO SCH ×2 (09:32→13:59)
[2017-05-20] MEDS ORDERED: predniSONE 20 MG TABLET PO SCH (10:00)
[2017-05-20] MEDS ORDERED: INSULIN ASPART 300 UNIT/3 ML PEN SUBQ SCH (12:00)
[2017-05-20] MEDS ORDERED: BENZOCAINE/MENTHOL LOZENGE MM PRN (12:25)
--- NOTE | 2017-05-20 13:06 | Discharge Plan ---
Discharge Plan Disposition: 01 Home, Self Care Condition: Good Prescriptions: predniSONE [Prednisone] 10 mg PO DAILY 6 Days #18 tab.ds.pk Spironolactone [Aldactone] 25 mg PO DAILY #30 tablet Diet: Diabetic Activity Restrictions: No Restrictions Shower Restrictions: No Driving Restrictions: No Weight Bearing: Full Weight Instruction Topics: COPD Additional Instructions or Follow Up instructions: You were admitted for shortness of breath and CHF exacerbation. You were given IV lasix and a steroid dose. You should continue the lasix, STOP potassium because you were started on Spironolactone instead which compliments the lasix and works to reduce your abdominal girth. A hemoglogin A1C was checked, and elevated at 7.3, which says that your diabetes could use some medication adjustments. I recommend that you see a diabetic nurse educator. You should go see ortho surgery about your right foot. You should see your primary care doctor in the next 5-7 days. [place] [facility] [place] No Smoking: If you smoke, Please STOP! Call for help.
--- NOTE | 2017-05-20 13:11 | DISCHARGE SUMMARY ---
Discharge Summary Discharge Date: 05/20/17 Discharging Provider: FAY Puga Primary Care Provider: none Code Status: Attempt Resuscitation Condition at Discharge: Good Discharge Disposition: 01 Home, Self Care - DIAGNOSES Admission Diagnoses: Shortness of breath (R06.02) Chronic obstructive pulmonary disease with (acute) exacerbation (J44.1) Type 2 diabetes mellitus without complications (E11.9) Old myocardial infarction (I25.2) Sacrococcygeal disorders, not elsewhere classified (M53.3) Pathological fracture, right foot, sequela (M84.474S) Venous insufficiency (chronic) (peripheral) (I87.2) Morbid (severe) obesity due to excess calories (E66.01) Hypokalemia (E87.6) Discharge Diagnoses with Status of Each Condition: SOB (shortness of breath) (R06.02) resolved, stable. COPD exacerbation (J44.1) chronic, treatment to continue Pathological fracture, right foot, sequela (M84.474S) chronic, improved mobility with diuretics. Venous stasis dermatitis of both lower extremities (I87.2) chronic, stable. Morbid obesity with BMI of 45.0-49.9, adult (E66.01) chronic, stable. IDDM (insulin dependent diabetes mellitus) (E11.9) chronic, recommend to attend diabetes education. Hypokalemia was resolved. - HPI History of Present Illness: Edil Zavala is a 71 year old morbidly obese white male with a past medical history of COPD, obesity, DM type 2-insulin dependent, SD, CAD with stenting, CHF, HTN, hyperlipidemia, peripheral neuropathy, kidney stones, nocturia, chronic back pain, panic attacks, anxiety disorder and recent right foot fracture. He presents to the ED after taking a long car ride to the [facility] [place] stating that he just "needed a break from his ". He reportedly spent up to 24-hours in the car and went alone on this trip. He decided to return when he saw that the area was windy and he was also more short of breath. He stopped on his way to eat and state that he was short o breath even eating the food in the restaurant. He drove home to [place], but then came to the ED. His SOB has been slowly worsening over 1 month, accompanied by orthopnea, worsening leg edema, and pleuritic chest pain anteriorly. He denies fever, cough or wheezing. He will be admitted and given diuretics, oxygen, and nebulizer treatments. - ALLERGIES Allergies/Adverse Reactions: Allergies Allergy/AdvReac Type Severity Reaction Status Date / Time pregabalin [From Lyrica] Allergy Intermediate unknown Verified 05/18/17 19:13 simvastatin [From Zocor] Allergy Intermediate Nausea Verified 05/18/17 19:13 sulfamethoxazole Allergy Intermediate unknown Verified 05/18/17 19:13 [From Septra] trimethoprim [From Septra] Allergy Intermediate unknown Verified 05/18/17 19:13 tetracycline [Tetracycline] Allergy Rash Verified 05/18/17 19:13 - MEDICATIONS Home Medications: Ambulatory Orders Medication Instructions Recorded Confirmed Aspirin [Aspir 81] 81 mg PO DAILY 11/07/12 05/18/17 Carvedilol [Coreg] 25 mg PO BID 11/07/12 05/18/17 Clonidine HCl [Kapvay] 0.1 mg PO BID 11/07/12 05/18/17 DULoxetine [Cymbalta] 60 mg PO QPM 11/07/12 05/18/17 Furosemide [Lasix] 40 mg PO BID 11/07/12 05/18/17 Loratadine 10 mg PO DAILY 11/07/12 05/18/17 Losartan Potassium [Cozaar] 50 mg PO DAILY 11/07/12 05/18/17 Omeprazole [PriLOSEC] 20 mg PO BID 11/07/12 05/18/17 Albuterol [Ventolin Hfa] 2 puffs INH Q4H PRN 04/01/15 05/18/17 Gabapentin 1,200 mg ORAL QPM 04/01/15 05/18/17 amLODIPine [Norvasc] 5 mg ORAL DAILY 04/01/15 05/18/17 Atorvastatin [Lipitor] 40 mg PO DAILY 05/29/15 05/18/17 Insulin Glargine,Hum.rec.anlog 100 units SQ BID 05/29/15 05/18/17 [Lantus] Ipratropium/Albuterol [Duoneb] 3 ml INH Q6H PRN #20 neb 08/24/16 05/18/17 Oxycodone HCl/Acetaminophen 1 tab PO BID PRN 05/19/17 05/19/17 [Oxycodone-Acetaminophen 10-325] Spironolactone [Aldactone] 25 mg PO DAILY #30 tablet 05/20/17 predniSONE [Prednisone] 10 mg PO DAILY 6 Days #18 tab.ds.pk 05/20/17 - PHYSICAL EXAM AT DISCHARGE General Appearance: positive: No acute distress, Alert Eyes Bilateral: positive: Normal inspection, PERRL ENT: positive: ENT inspection nml, Pharynx nml, No signs of dehydration Neck: positive: Nml inspection, Thyroid nml, No JVD Respiratory: positive: Chest non-tender, No respiratory distress, Wheezes, Other (slight crackles) Cardiovascular: positive: No gallop, Irregularly irregular, Systolic murmur, Decreased pulse(s) Peripheral Pulses: positive: 1+ Abdomen: positive: Non-tender, Nml bowel sounds, Other (obese, soft) Back: positive: Nml inspection Skin: positive: No rash, Warm, Dry Extremities: positive: Non-tender, Full ROM, Nml appearance, Pedal edema, Joint swelling, Other (right foot fracture, chronic edema BLE) Neurologic/Psychiatric: positive: Oriented x3, CN's nml (2-12), Motor nml, Sensation nml, Depressed mood/affect Reflexes: Bicep (R): 3+, Bicep (L): 3+ - LABS Result Diagrams: 05/20/17 06:00 05/20/17 06:00 - DIAGNOSTIC IMAGING Diagnostic Imaging Results: Final report reviewed - FOLLOW UP Follow Up: Disposition: 01 Home, Self Care Condition: Good Prescriptions: predniSONE [Prednisone] 10 mg PO DAILY 6 Days #18 tab.ds.pk Spironolactone [Aldactone] 25 mg PO DAILY #30 tablet Diet: Diabetic Activity Restrictions: No Restrictions Shower Restrictions: No Driving Restrictions: No Weight Bearing: Full Weight Instruction Topics: COPD Additional Instructions or Follow Up instructions: You were admitted for shortness of breath and CHF exacerbation. You were given IV lasix and a steroid dose. You should continue the lasix, STOP potassium because you were started on Spironolactone instead which compliments the lasix and works to reduce your abdominal girth. A hemoglogin A1C was checked, and elevated at 7.3, which says that your diabetes could use some medication adjustments. I recommend that you see a diabetic nurse educator. You should go see ortho surgery about your right foot. You should see your primary care doctor in the next 5-7 days. - TIME SPENT Time Spent in Discharge (Minutes): 60
[2017-05-20] MEDS ORDERED: ENOXAPARIN 40 MG/0.4 ML SYRINGE SUBQ SCH (21:00)
== END 2017-05-20 15:05 | disposition home or self-care (01) | DRG 292 ==
LOC: EDUNIT# → ED 19:04 → OBS 23:04 → OBSVTOIN 05-19 12:31 → MS2 05-19 14:25
PROVIDERS: ADMIT Internal Medicine; ATTEND Nurse Practitioner
DX: I11.0 Hypertensive heart disease with heart failure (principal); I10 Essential (primary) hypertension; E78.00 Pure hypercholesterolemia, unspecified; J44.1 Chronic obstructive pulmonary disease with (acute) exacerbation; Z68.42 Body mass index [BMI] 45.0-49.9, adult; E11.51 Type 2 diabetes mellitus with diabetic peripheral angiopathy without gangrene; I50.9 Heart failure, unspecified; E11.42 Type 2 diabetes mellitus with diabetic polyneuropathy; E66.01 Morbid (severe) obesity due to excess calories; I87.2 Venous insufficiency (chronic) (peripheral); E11.59 Type 2 diabetes mellitus with other circulatory complications; E87.6 Hypokalemia; K21.9 Gastro-esophageal reflux disease without esophagitis; S92.901S Unspecified fracture of right foot, sequela; M79.671 Pain in right foot; E78.5 Hyperlipidemia, unspecified; I25.10 Atherosclerotic heart disease of native coronary artery without angina pectoris; F41.0 Panic disorder [episodic paroxysmal anxiety]; M79.7 Fibromyalgia; G89.29 Other chronic pain; M54.89 Other dorsalgia; R35.0 Frequency of micturition; R35.1 Nocturia; Z79.4 Long term (current) use of insulin; Z79.82 Long term (current) use of aspirin; Z79.51 Long term (current) use of inhaled steroids; Z79.891 Long term (current) use of opiate analgesic; Z87.891 Personal history of nicotine dependence; I25.2 Old myocardial infarction; Z72.89 Other problems related to lifestyle; Z95.5 Presence of coronary angioplasty implant and graft; Z87.442 Personal history of urinary calculi
CPT/HCPCS: 36415; 71045; 71275; 80048; 80053; 83036; 83690; 83735; 83880; 84484; 85025; 87640; 93005; 93306; 94640; 96361; 96372; 96374; 96375; 96376; 99284; 99285

== ENCOUNTER 2017-08-18 17:07 | Outpatient (CLI) | payer MEDICARE, OTHER | END 2017-08-18 17:08 | disposition EMS.NT | LOC: EMS 17:07 | PROVIDERS: ATTEND Surgery | DX: M79.671 Pain in right foot (principal) ==

== ENCOUNTER 2017-08-18 17:51 | Inpatient (IN) | payer MEDICARE, OTHER ==
[2017-08-18] MEDS ORDERED: VANCOMYCIN INJ 2 GM in SODIUM CHLORIDE 0.9% 500 ML IV STA ×2 (18:24→19:24)
[2017-08-18] MEDS ORDERED: PIPERACILLIN/TAZOBACTAM 4.5 GM in SODIUM CHLORIDE 0.9% MINIBAG 100 ML IV STA (18:24)
[2017-08-18] MEDS ORDERED: MORPHINE 10 MG/ML VIAL IVP ONE (18:25)
--- NOTE | 2017-08-18 18:25 | ED Physician Documentation ---
PD HPI LOWER EXT INJURY - Stated complaint Stated Complaint: RT FT LAC/PX - Chief complaint Chief Complaint: Ext Problem - History obtained from History obtained from: Patient - History of Present Illness PD HPI LOW EXT INJURY LOCATION: Right, Foot Type of injury: Other (He has had excruciating pain from the bottom of the right foot for the last week or so without fevers. He is a long-standing diabetic with diabetic neuropathy. He has been taking Vicodin for the pain which does not help at all. It is a sharp pain. He is having difficulty walking because of it.) Review of Systems Ten Systems: 10 systems reviewed and negative Constitutional: denies: Fever, Chills Cardiac: denies: Chest pain / pressure, Palpitations Respiratory: denies: Dyspnea, Cough GI: denies: Abdominal Pain PD PAST MEDICAL HISTORY - Past Medical History Past Medical History: Yes Cardiovascular: Hypertension, High cholesterol, Coronary artery disease, Peripheral Vascular Disease, [place] Respiratory: COPD, Shortness of breath Neuro: Peripheral neuropathy Endocrine/Autoimmune: Type 2 diabetes GI: GERD : Nocturia, Frequency, Kidney stones Psych: Anxiety, Panic attacks Musculoskeletal: Fibromyalgia, Chronic back pain - Past Surgical History Past Surgical History: Yes Cardiovascular: Coronary stent HEENT: Cataracts - Present Medications Home Medications: Ambulatory Orders Medication Instructions Recorded Confirmed Aspirin [Aspir 81] 81 mg PO DAILY 11/07/12 05/18/17 Carvedilol [Coreg] 25 mg PO BID 11/07/12 05/18/17 Clonidine HCl [Kapvay] 0.1 mg PO BID 11/07/12 05/18/17 DULoxetine [Cymbalta] 60 mg PO QPM 11/07/12 05/18/17 Furosemide [Lasix] 40 mg PO BID 11/07/12 05/18/17 Loratadine 10 mg PO DAILY 11/07/12 05/18/17 Losartan Potassium [Cozaar] 50 mg PO DAILY 11/07/12 05/18/17 Omeprazole [PriLOSEC] 20 mg PO BID 11/07/12 05/18/17 Albuterol [Ventolin Hfa] 2 puffs INH Q4H PRN 04/01/15 05/18/17 Gabapentin 1,200 mg ORAL QPM 04/01/15 05/18/17 amLODIPine [Norvasc] 5 mg ORAL DAILY 04/01/15 05/18/17 Atorvastatin [Lipitor] 40 mg PO DAILY 05/29/15 05/18/17 Insulin Glargine,Hum.rec.anlog 100 units SQ BID 05/29/15 05/18/17 [Lantus] Ipratropium/Albuterol [Duoneb] 3 ml INH Q6H PRN #20 neb 08/24/16 05/18/17 Oxycodone HCl/Acetaminophen 1 tab PO BID PRN 05/19/17 05/19/17 [Oxycodone-Acetaminophen 10-325] Spironolactone [Aldactone] 25 mg PO DAILY #30 tablet 05/20/17 predniSONE [Prednisone] 10 mg PO DAILY 6 Days #18 tab.ds.pk 05/20/17 - Allergies Allergies/Adverse Reactions: Allergies Allergy/AdvReac Type Severity Reaction Status Date / Time pregabalin [From Lyrica] Allergy Intermediate unknown Verified 05/18/17 19:13 simvastatin [From Zocor] Allergy Intermediate Nausea Verified 05/18/17 19:13 sulfamethoxazole Allergy Intermediate unknown Verified 05/18/17 19:13 [From Septra] trimethoprim [From Septra] Allergy Intermediate unknown Verified 05/18/17 19:13 tetracycline [Tetracycline] Allergy Rash Verified 05/18/17 19:13 - Social History Does the pt smoke?: No Smoking Status: Never smoker Does the pt drink ETOH?: Yes Does the pt have substance abuse?: Yes - Family History Family history: reports: Non contributory - Immunizations Immunizations are current?: Yes - POLST Patient has POLST: No PD ED PE NORMAL - Vitals Vital signs reviewed: Yes - General General: Alert and oriented X 3, No acute distress - HEENT HEENT: PERRL, EOMI - Neck Neck: Supple, no meningeal sign, No bony TTP - Cardiac Cardiac: RRR, No murmur - Respiratory Respiratory: No respiratory distress, Clear bilaterally - Abdomen Abdomen: Normal bowel sounds, Soft, Non tender - Back Back: No CVA TTP, No spinal TTP - Derm Derm: Normal color, Warm and dry - Extremities Extremities: Other (There is a small draining ulcer right in the middle of the bottom of the right foot and the entirety of the right foot is extremely swollen and tender.) - Neuro Neuro: Alert and oriented X 3, Normal speech - Psych Psych: Normal mood, Normal affect Results - Vitals Vitals: Vital Signs - 24 hr 08/18/17 08/18/17 17:55 19:53 Temperature 36.3 C L Heart Rate 85 84 Respiratory 18 12 Rate Blood Pressure 147/72 H 110/62 O2 Saturation 99 94 Oxygen O2 Source Room air - EKG (time done) 1917 Rate: Rate (enter#) (87) Rhythm: NSR [place]: Normal Intervals: Normal GA QRS: Normal Ischemia: Normal ST segments Computer interpretation: Agree with computer - Labs Labs: Microbiology 08/18/17 18:20 Wound Culture - Preliminary Foot - Right Laboratory Tests 08/18/17 08/18/17 08/18/17 18:08 18:42 18:42 WBC 13.9 H RBC 3.22 L Hgb 9.9 L Hct 29.2 L MCV 90.6 MCH 30.8 MCHC 34.0 RDW 14.0 Plt Count 368 MPV 7.4 Neut # 11.0 H Lymph # 1.6 [place] # 1.0 Eos # 0.2 Baso # 0.1 Absolute Nucleated RBC 0.00 Nucleated RBC % 0.0 ESR Sodium 137 Potassium 5.2 H Chloride 101 Carbon Dioxide 25 Anion Gap 11.0 BUN 42 H Creatinine 1.8 H Estimated GFR (MDRD) 37 L Glucose 101 H POC Whole Bld Glucose 53 L* Glycated Hemoglobin Estim Average Glucose Lactic Acid Calcium 9.5 Total Bilirubin 0.6 AST 26 ALT 24 Alkaline Phosphatase 132 H C-Reactive Protein 19.9 H Total Protein 8.3 H Albumin 3.1 L Globulin 5.2 H Albumin/Globulin Ratio 0.6 L Lipase 13 L 08/18/17 08/18/17 08/18/17 18:42 18:42 18:51 WBC RBC Hgb Hct MCV MCH MCHC RDW Plt Count MPV Neut # Lymph # [place] # Eos # Baso # Absolute Nucleated RBC Nucleated RBC % ESR 39 H Sodium Potassium Chloride Carbon Dioxide Anion Gap BUN Creatinine Estimated GFR (MDRD) Glucose POC Whole Bld Glucose Glycated Hemoglobin 7.6 H Estim Average Glucose 171 H Lactic Acid 1.4 Calcium Total Bilirubin AST ALT Alkaline Phosphatase C-Reactive Protein Total Protein Albumin Globulin Albumin/Globulin Ratio Lipase 08/18/17 19:05 WBC RBC Hgb Hct MCV MCH MCHC RDW Plt Count MPV Neut # Lymph # [place] # Eos # Baso # Absolute Nucleated RBC Nucleated RBC % ESR Sodium Potassium Chloride Carbon Dioxide Anion Gap BUN Creatinine Estimated GFR (MDRD) Glucose POC Whole Bld Glucose 89 Glycated Hemoglobin Estim Average Glucose Lactic Acid Calcium Total Bilirubin AST ALT Alkaline Phosphatase C-Reactive Protein Total Protein Albumin Globulin Albumin/Globulin Ratio Lipase - Rads (name of study) R foot Radiology: EMP read contemporaneously (1. Worsening midfoot and lateral tarsometatarsal fracture/dislocations. 2. Extensive soft tissue swelling, with areas of soft tissue air, but no evidence of osteomyelitis.) PD MEDICAL DECISION MAKING - ED course ED course: 72-year-old gentleman with history of uncontrolled diabetes and peripheral neuropathy presents with worsening Charcot foot and significant infection in the right foot. He was cultured up and given Zosyn and vancomycin. I spoke with the on-call orthopedist, Dr. Goodman at 7:28 PM and he will consult and defers to medicine for admission. Call to the hospitalist for admission at 7: 30 PM. Departure - Departure Disposition: [facility] DC/Xfer Clinical Impression: Charcot's joint of right foot, Cellulitis of foot, right, Insulin dependent diabetes mellitus Condition: Stable Discharge Date/Time: 08/18/17 21:19
[2017-08-18 18:56] LABS: BASOPHILS # (AUTO) 0.1 10^3/uL (0.0-0.1); BASOPHILS % (AUTO) 0.9 %; EOSINOPHILS # (AUTO) 0.2 10^3/uL (0.0-0.7); EOSINOPHILS % (AUTO) 1.4 %; HGB - HEMOGLOBIN 9.9 g/dL (14.0-18.0); LYMPHOCYTES # (AUTO) 1.6 10^3/uL (1.5-3.5); LYMPHOCYTES % (AUTO) 11.3 %; MEAN CORPUSCULAR HEMOGLOBIN 30.8 pg (27.0-31.0); MEAN CORPUSCULAR VOLUME 90.6 fL (80.0-94.0); MEAN PLATELET VOLUME 7.4 fL (7.4-11.4); MONOCYTES % (AUTO) 7.4 %; PLT - PLATELET COUNT 368 10^3/uL (130-450); RED BLOOD COUNT 3.22 10^6/uL (4.70-6.10); WHITE BLOOD COUNT 13.9 x10^3/uL (4.8-10.8)
[2017-08-18] MEDS ORDERED: HYDROmorphone 2 MG/ML VIAL IVP STA (19:04)
[2017-08-18] MEDS ORDERED: ONDANSETRON 4 MG/2 ML VIAL IVP STA (19:04)
--- NOTE | 2017-08-18 19:11 | XRAY Report ---
EXAM: RIGHT FOOT RADIOGRAPHY EXAM DATE: 08/18/2017 06:43 PM. CLINICAL HISTORY: Foot infection. Swelling and pain. COMPARISON: 04/02/2017. TECHNIQUE: 3 views. FINDINGS: Bones: Multiple tarsal fracture fragments. No other traumatic bone abnormalities, noting stable cysti c abnormality of the medial first metatarsal head. Joints: Worsening midfoot and lateral tarsometatarsal dislocations. Soft Tissues: Extensive soft tissue swelling with areas of soft tissue air. IMPRESSION: 1. Worsening midfoot and lateral tarsometatarsal fracture/dislocations. 2. Extensive soft tissue swelling, with areas of soft tissue air, but no evidence of osteomyelitis. [facility] Referring Provider Line: [phone] SITE ID: [id number]
[2017-08-18 19:26] LABS: ALBUMIN 3.1 g/dL (3.2-5.5); ALBUMIN/GLOBULIN RATIO 0.6 (1.0-2.2); BILIRUBIN,TOTAL 0.6 mg/dL (0.2-1.0); CALCIUM 9.5 mg/dL (8.5-10.3); CREATININE 1.8 mg/dL (0.6-1.2); CRP - C-REACTIVE PROTEIN 19.9 mg/dL (0-1.0); TOTAL PROTEIN 8.3 g/dL (6.7-8.2)
[2017-08-18] MEDS ORDERED: ONDANSETRON 4 MG/2 ML VIAL IVP PRN (20:07)
[2017-08-18] MEDS ORDERED: IPRATROPIUM/ALBUTEROL 3 ML NEB INH PRN (20:07)
[2017-08-18] MEDS ORDERED: HYDROcod/ACETAM 10 MG/325 MG TABLET PO PRN (20:07)
[2017-08-18] MEDS ORDERED: ZOLPIDEM 5 MG TABLET PO PRN (20:07)
[2017-08-18] MEDS ORDERED: PROCHLORPERAZINE 10 MG/2 ML VIAL IVP PRN (20:07)
[2017-08-18] MEDS ORDERED: PROMETHAZINE 25 MG/1 ML VIAL IM PRN (20:07)
[2017-08-18] MEDS ORDERED: HYDROcod/ACETAM 5/325 MG TABLET PO PRN (20:07)
[2017-08-18] MEDS ORDERED: MORPHINE 10 MG/ML VIAL IVP STA (20:23)
[2017-08-18] MEDS ORDERED: ACETAMINOPHEN 325 MG TABLET PO STA (20:23)
[2017-08-18] MEDS ORDERED: diphenhydrAMINE 25 MG CAPSULE PO STA (20:36)
[2017-08-18 20:48] LABS: HEMOGLOBIN A1C 0.65 g/dL; HEMOGLOBIN A1C % 7.6 % (4.6-6.2)
[2017-08-18] MEDS ORDERED: SODIUM CHLORIDE 0.9% 1,000 ML IV SCH (21:00)
[2017-08-18] MEDS ORDERED: CLONIDINE HCL 0.1 MG PO SCH (21:00)
[2017-08-18] MEDS ORDERED: VANCOMYCIN PER PHARMACY 1 GM in SODIUM CHLORIDE 0.9% 250 ML IV SCH (21:00)
--- NOTE | 2017-08-18 21:17 | CONSULTATION NOTE ---
Referring Provider Name of Referring Provider:: Cliff Consult Date: 08/18/17 Chief Complaint - Chief Complaint Chief Complaint: Right foot pain History of Present Illness - Admitted From Admitted From:: ER - History Obtained From Records Reviewed: XR and reports History obtained from: Patient Exam Limitations: poor historian - History of Present Illness HPI Comment/Other: see dictation History - Past Medical History Cardiovascular: reports: Hypertension, High cholesterol, Coronary artery disease , Peripheral Vascular Disease, [place] Respiratory: reports: COPD, Shortness of breath Neuro: reports: Peripheral neuropathy Endocrine/Autoimmune: reports: Type 2 diabetes GI: reports: GERD : reports: Nocturia, Frequency, Kidney stones Psych: reports: Anxiety, Panic attacks Musculoskeletal: reports: Fibromyalgia, Chronic back pain MRSA Hx?: Yes - Past Surgical History Cardiovascular: reports: Coronary stent HEENT: reports: Cataracts - POLST Patient has POLST: No Meds/Allgy - Home Medications Home Medications: Ambulatory Orders Medication Instructions Recorded Confirmed Aspirin [Aspir 81] 81 mg PO DAILY 11/07/12 05/18/17 Carvedilol [Coreg] 25 mg PO BID 11/07/12 05/18/17 Clonidine HCl [Kapvay] 0.1 mg PO BID 11/07/12 05/18/17 DULoxetine [Cymbalta] 60 mg PO QPM 11/07/12 05/18/17 Furosemide [Lasix] 40 mg PO BID 11/07/12 05/18/17 Loratadine 10 mg PO DAILY 11/07/12 05/18/17 Losartan Potassium [Cozaar] 50 mg PO DAILY 11/07/12 05/18/17 Omeprazole [PriLOSEC] 20 mg PO BID 11/07/12 05/18/17 Albuterol [Ventolin Hfa] 2 puffs INH Q4H PRN 04/01/15 05/18/17 Gabapentin 1,200 mg ORAL QPM 04/01/15 05/18/17 amLODIPine [Norvasc] 5 mg ORAL DAILY 04/01/15 05/18/17 Atorvastatin [Lipitor] 40 mg PO DAILY 05/29/15 05/18/17 Insulin Glargine,Hum.rec.anlog 100 units SQ BID 05/29/15 05/18/17 [Lantus] Ipratropium/Albuterol [Duoneb] 3 ml INH Q6H PRN #20 neb 08/24/16 05/18/17 Oxycodone HCl/Acetaminophen 1 tab PO BID PRN 05/19/17 05/19/17 [Oxycodone-Acetaminophen 10-325] Spironolactone [Aldactone] 25 mg PO DAILY #30 tablet 05/20/17 predniSONE [Prednisone] 10 mg PO DAILY 6 Days #18 tab.ds.pk 05/20/17 - Allergies Allergies/Adverse Reactions: Allergies Allergy/AdvReac Type Severity Reaction Status Date / Time pregabalin [From Lyrica] Allergy Intermediate unknown Verified 05/18/17 19:13 simvastatin [From Zocor] Allergy Intermediate Nausea Verified 05/18/17 19:13 sulfamethoxazole Allergy Intermediate unknown Verified 05/18/17 19:13 [From Septra] trimethoprim [From Septra] Allergy Intermediate unknown Verified 05/18/17 19:13 tetracycline [Tetracycline] Allergy Rash Verified 05/18/17 19:13 Exam - Vital Signs Vital Signs: Vital Signs x48h Temp Pulse Resp BP Pulse Ox 08/18/17 21:01 83 18 128/69 99 08/18/17 20:16 36.6 C 87 16 109/62 99 Conclusion/Plan - Plan Plan: see dictation - Lab Results Fish Bones: 08/18/17 18:42 08/18/17 18:42
[2017-08-18] MEDS: DULoxetine 30 MG CAPSULE PO SCH (22:19)
[2017-08-18] MEDS: INSULIN ASPART 300 UNIT/3 ML PEN SUBQ SCH (22:19)
[2017-08-18] MEDS: CARVEDILOL 12.5 MG TABLET PO SCH (22:19)
[2017-08-18] MEDS: GABAPENTIN 400 MG CAPSULE PO SCH (22:19)
--- NOTE | 2017-08-18 22:25 | HISTORY & PHYSICAL EXAMINATION ---
Chief Complaint - Chief Complaint Chief Complaint: Right foot pain and swelling History of Present Illness - Admitted From Admitted From:: Emergency department - History Obtained From Records Reviewed: Yes History obtained from: Patient Exam Limitations: None - History of Present Illness HPI Comment/Other: Patient is a 72-year-old gentleman with a past medical history significant for obesity, insulin-dependent diabetes, COPD, coronary artery disease status post stenting, hypertension, hyperlipidemia, peripheral neuropathy, nephrolithiasis, chronic back pain, panic attacks, GERD and anxiety who presented to the emergency department with a chief complaint of right foot pain and swelling. The patient states that he broke his foot in April 2017. He states he did it while he was climbing up into his pickup. He states that it did not seem that bad at the time so he just continued to walk on it. He states over the next few days it became increasingly swollen and painful. He then came into the emergency department and was found to have numerous fractures in the right foot with extensive midfoot fracture dislocation. The patient states that he was placed in a walking cast at that time and sent home. He states that he took off the walking cast once he got home because he could not get his pants off over it. He states that he never put it back on as he could not get it on by himself. He states that despite taking off the walking cast over the next 3 months he continued to have improvement in his foot. He states that the swelling resolved and the pain continued to get better. He states however a week and a half ago he started having increased swelling and pain again in the right foot. He states that the pain started off in the heel on the plantar side of his foot. And it worked its way up onto the top of his foot and into the ankle. He states that he had increasing swelling and then began having drainage from the bottom of his heel. He states that the pain and swelling has continued to worsen over the last week and a half but what alarmed him today was that he had increased drainage from the bottom of his heel. He states that it was bloody drainage and he became concerned that his foot may be infected so he came into the emergency department. The patient states that for the pain he has been taking Percocet at home which has been only mildly helping the pain. The patient states he has not had any fevers but he has had the shakes. The patient denies any new trauma to that foot. He states that there are parts of his feet where he does not have good sensation. The patient denies any headaches, blurred vision, runny nose, sore throat, nasal congestion, difficulty swallowing, chest pain, shortness of air, orthopnea , cough, PND, abdominal pain, nausea, vomiting, diarrhea, constipation, dysuria , increased urinary urgency, neck stiffness, hair loss, new skin rash, recent unintentional weight loss, night sweats, changes in his appetite or any focal neurologic deficits On presentation to the emergency department the patient was afebrile and vital signs were within normal limits. The patient did appear to be in some distress as he was having significant pain in his right foot. The patient was given a dose of Dilaudid and couple of doses of morphine for the pain and this finally got his pain control. The patient underwent an x-ray of the right foot which showed worsening midfoot and lateral tarsometatarsal fracture/dislocations and extensive soft tissue swelling, with areas of soft tissue air but no evidence of osteomyelitis. The patient underwent routine lab work which did reveal a leukocytosis of 13.9, and elevated ESR and CRP along with increased creatinine and hypoglycemia with a blood glucose of 53. The patient continued to have drainage from the bottom of his right foot and this was cultured in the emergency department and sent to the lab. The emergency room physician spoke with the on-call orthopedic surgeon who recommended that the patient be admitted by the hospitalist service for IV antibiotics and if the patient did not show improvement over the next 48 hours that he would likely need amputation of the foot. The patient was given IV vancomycin and Zosyn in the emergency department and admitted to the medical thomas. History - Past Medical History Cardiovascular: reports: Hypertension, High cholesterol, Coronary artery disease , Peripheral Vascular Disease, [place] Respiratory: reports: COPD, Shortness of breath Neuro: reports: Peripheral neuropathy Endocrine/Autoimmune: reports: Type 2 diabetes GI: reports: GERD : reports: Nocturia, Frequency, Kidney stones Psych: reports: Anxiety, Panic attacks Musculoskeletal: reports: Fibromyalgia, Chronic back pain MRSA Hx?: Yes - Past Surgical History Cardiovascular: reports: Coronary stent HEENT: reports: Cataracts - Family & Social History Family History: Mother: , Diabetes, Type 2, Father: , CAD Living arrangement: At home Living Situation: With spouse/s.o. Social History Notes: The patient lives in [place] with his who has Alzheimer's dementia. He states that he is the primary caregiver for his . He is retired. He quit smoking in 2002 prior to that he was a pack-a-day smoker for close to 40 years. He states that he does continue to drink but has cut down on his drinking recently. He has used marijuana to try to deal with his pain. He denies any other illicit drug use. - POLST Patient has POLST: No POLST Status: Full Code Meds/Allgy - Home Medications Home Medications: Ambulatory Orders Medication Instructions Recorded Confirmed Aspirin [Aspir 81] 81 mg PO DAILY PM 11/07/12 08/18/17 Carvedilol [Coreg] 25 mg PO BID 11/07/12 08/18/17 Clonidine HCl [Kapvay] 0.1 mg PO BID 11/07/12 05/18/17 DULoxetine [Cymbalta] 60 mg PO QPM 11/07/12 08/18/17 Furosemide [Lasix] 40 mg PO BID 11/07/12 08/18/17 Loratadine 10 mg PO DAILY 11/07/12 08/18/17 Losartan Potassium [Cozaar] 50 mg PO DAILY PM 11/07/12 08/18/17 Omeprazole [PriLOSEC] 20 mg PO DAILY 11/07/12 08/18/17 Albuterol [Ventolin Hfa] 2 puffs INH Q4H PRN 04/01/15 05/18/17 Gabapentin 1,200 mg ORAL QPM 04/01/15 08/18/17 amLODIPine [Norvasc] 5 mg ORAL DAILY 04/01/15 05/18/17 Atorvastatin [Lipitor] 40 mg PO DAILY PM 05/29/15 08/18/17 Insulin Glargine,Hum.rec.anlog 100 units SQ BID 05/29/15 08/18/17 [Lantus] Ipratropium/Albuterol [Duoneb] 3 ml INH Q6H PRN #20 neb 08/24/16 05/18/17 Oxycodone HCl/Acetaminophen 1 tab PO BID PRN 05/19/17 08/18/17 [Oxycodone-Acetaminophen 10-325] Spironolactone [Aldactone] 25 mg PO DAILY #30 tablet 05/20/17 08/18/17 predniSONE [Prednisone] 10 mg PO DAILY 6 Days #18 tab.ds.pk 05/20/17 - Allergies Allergies/Adverse Reactions: Allergies Allergy/AdvReac Type Severity Reaction Status Date / Time pregabalin [From Lyrica] Allergy Intermediate unknown Verified 05/18/17 19:13 simvastatin [From Zocor] Allergy Intermediate Nausea Verified 05/18/17 19:13 sulfamethoxazole Allergy Intermediate unknown Verified 05/18/17 19:13 [From Septra] trimethoprim [From Septra] Allergy Intermediate unknown Verified 05/18/17 19:13 tetracycline [Tetracycline] Allergy Rash Verified 05/18/17 19:13 Review of Systems - Other Findings Other Findings: A comprehensive review of systems was performed the pertinent positives and negatives are stated above in the HPI and the remainder of the review of systems is negative. Exam - Vital Signs Reviewed Vital Signs: Yes Vital Signs: Vital Signs x48h Temp Pulse Pulse Resp BP BP Pulse Ox 08/18/17 21:27 36.7 C 78 16 139/71 H 99 08/18/17 21:01 83 18 128/69 99 08/18/17 20:16 36.6 C 87 16 109/62 99 08/18/17 19:53 84 12 110/62 94 08/18/17 17:55 36.3 C L 85 18 147/72 H 99 - Physical Exam General Appearance: positive: Alert, Mild distress (Due to pain in the right foot), Other (Obese) Eyes Bilateral: positive: Normal inspection, PERRL, EOMI, No lid inflammation, Conjunctivae nml, No scleral icterus ENT: positive: ENT inspection nml, Pharynx nml, Dry mucous membranes. negative : Purulent nasal drainage, Pharyngeal erythema, Oral lesions Neck: positive: Nml inspection, Thyroid nml, No JVD, Trachea midline. negative : Thyromegaly, Lymphadenopathy (R), Lymphadenopathy (L), Stiff neck, Carotid bruit, Tracheal deviation Respiratory: positive: Chest non-tender, No respiratory distress, Breath sounds nml. negative: Wheezes, Rales, Rhonchi Cardiovascular: positive: Regular rate & rhythm, No murmur, No gallop Peripheral Pulses: positive: 2+ Abdomen: positive: Non-tender, No organomegaly, Nml bowel sounds, No distention , Other (Obese). negative: Guarding, Rebound, Hepatomegaly Back: positive: Nml inspection. negative: CVA tenderness (R), CVA tenderness (L ) Skin: positive: Other (Right foot is very swollen with increased erythema, warmth and patient has a small ulcer on the plantar aspect of his foot on his heel this is draining with bloody discharge. The foot is tender to palpation. It is significantly swollen compared to his left foot.) Extremities: positive: Full ROM, Pedal edema (Right worse than left leg), Joint swelling (Right ankle severely swollen), Other (Right foot is very swollen with increased erythema, warmth and patient has a small ulcer on the plantar aspect of his foot on his heel this is draining with bloody discharge. The foot is tender to palpation. It is significantly swollen compared to his left foot. Hyperpigmentation of bilateral lower extremities consistent with venous stasis changes) Neurologic/Psychiatric: positive: Oriented x3, CN's nml (2-12), Motor nml, Mood/ affect nml, Sensory loss (Bilateral feet) Conclusion/Plan - Problem List (1) Cellulitis of foot, right Conclusion/Plan: The patient presented with right foot and ankle swelling, pain and drainage from the right heel. The patient had a fracture of his right foot from April 2017 which has not been healing and in fact looks worse today on x-ray. Subsequently he has also developed swelling, erythema, tenderness, pain and drainage from the right foot consistent with a cellulitis. The patient has a leukocytosis on presentation but no fevers and otherwise vital signs are stable. Orthopedic surgery was consulted in the emergency department and did see the patient. They recommend that the patient be admitted to the hospital for IV antibiotics for at least 2 days and then the patient will be reevaluated to see if he needs amputation of the foot as the patient appears to have sharp clots joint although this is unusual to be only in 1 foot but regardless his fractures do not appear to be healing and the patient's infection will only get worse and likely end up in the bone. Plan: IV vancomycin and Zosyn Wound cultures pending IV fluids Orthopedic surgery consultation Monitor for improvement in cellulitis over next 48 hours otherwise patient will need amputation The patient does have uncontrolled pain of the right foot and will be placed on IV morphine as needed along with Tylenol and [place] as needed. (2) Foot fracture, right Conclusion/Plan: The patient states that he fractured his foot in April 2017 when he was stepping into his truck. He did have an ER visit at that time and was found to have dislocated fracture of the right midfoot and was placed in a walking cast. The patient was not compliant with the cast and subsequently has developed worsening midfoot and lateral tarsometatarsal fracture/dislocations according to x-ray done today. The patient is also developed cellulitis of the right foot and has a draining ulcer on the bottom of his right heel. Orthopedic surgery was consulted and they recommended IV antibiotics and monitoring for 48 hours and then reassessment for potential amputation of the right foot. Plan: Patient will receive IV antibiotics with vancomycin and Zosyn to treat cellulitis overlying his right foot fracture Orthopedic surgery has been consulted and will give recommendations as far as weightbearing status We will monitor for 48 hours to see if there is significant improvement in the patient's cellulitis otherwise patient will require a amputation of the right foot. Pain control with IV morphine, [place] and Tylenol Qualifiers: Encounter type: subsequent encounter Fracture type: closed Fracture healing: with delayed healing Qualified Code(s): S92.901G - Unspecified fracture of right foot, subsequent encounter for fracture with delayed healing (3) RAFAEL (acute kidney injury) Conclusion/Plan: The patient has a creatinine of 1.8 on presentation his previous baseline is around 1.1-1.2. The patient does take Lasix at home and does appear to be dry on examination. At this point we will treat his renal failure as prerenal azotemia and give him IV fluids while holding his Lasix. We will monitor his creatinine and avoid any nephrotoxic agents. (4) Anemia Conclusion/Plan: The patient has anemia which appears to be chronic but is worse today. The patient's hemoglobin is 9.9 his normal baseline is between 11 and 12. The patient has been having bloody drainage from the right foot but this does not appear to be enough to cause his hemoglobin to drop. Plan: We will monitor hemoglobin daily We will get iron studies, B12 and folate and replace any if they are low. Qualifiers: Anemia type: unspecified type Qualified Code(s): D64.9 - Anemia, unspecified (5) Diabetes Conclusion/Plan: Patient has a history of type 2 diabetes and is insulin-dependent. The patient' s hemoglobin A1c is 7.6 and he does have complications of peripheral neuropathy specifically in his feet. On presentation the patient is hypoglycemic with a glucose of 53. The patient uses Lantus 100 units twice daily at home. Given his hypoglycemia we will need to hold his dose of Lantus tonight. Plan: Patient will be continued on Lantus we may need to adjust the dose Patient be placed on sliding scale insulin while he is hospitalized Patient will be placed on diabetic diet We will check blood glucose before meals at bedtime Qualifiers: Diabetes mellitus type: type 2 Diabetes mellitus manager terminal insulin use: with manager terminal use Diabetes mellitus complication status: with hypoglycemia Diabetes mellitus complication detail: without coma Qualified Code(s): E11.649 - Type 2 diabetes mellitus with hypoglycemia without coma; Z79.4 - terminal system operator (current) use of insulin; Z79.4 - assisted (current) use of insulin; Z79.4 - terminal system operator (current) use of insulin; Z79.4 - terminal system operator (current) use of insulin (6) Hypertension Conclusion/Plan: The patient has a history of hypertension but blood pressure is well controlled on presentation to the emergency department. The patient uses Coreg, Cozaar, Aldactone, Norvasc and Lasix for blood pressure control. We will continue the patient on his home medications but we are holding the Lasix as he does appear to be dry on examination. We will continue to monitor blood pressure and titrate medications as needed. Qualifiers: Hypertension type: essential hypertension Qualified Code(s): I10 - Essential (primary) hypertension (7) Peripheral neuropathy Conclusion/Plan: The patient does appear to have diabetic peripheral neuropathy in his feet. This could be contributing to why the patient got an ulcer on the bottom of his foot and now has cellulitis of his right foot. The patient takes gabapentin at home for peripheral neuropathy and we will continue this while he is hospitalized. Qualifiers: Peripheral neuropathy type: polyneuropathy associated with underlying disease Qualified Code(s): G63 - Polyneuropathy in diseases classified elsewhere - Lab Results Lab results reviewed: Yes Fish Bones: 08/18/17 18:42 08/18/17 18:42 Other Lab Results: Laboratory Results WBC 13.9 x10^3/uL (4.8-10.8) H 08/18/17 18:42 RBC 3.22 10^6/uL (4.70-6.10) L 08/18/17 18:42 Hgb 9.9 g/dL (14.0-18.0) L 08/18/17 18:42 Hct 29.2 % (42.0-52.0) L 08/18/17 18:42 MCV 90.6 fL (80.0-94.0) 08/18/17 18:42 MCH 30.8 pg (27.0-31.0) 08/18/17 18:42 MCHC 34.0 g/dL (32.0-36.0) 08/18/17 18:42 RDW 14.0 % (12.0-15.0) 08/18/17 18:42 Plt Count 368 10^3/uL (130-450) 08/18/17 18:42 MPV 7.4 fL (7.4-11.4) 08/18/17 18:42 Neut # 11.0 10^3/uL (1.5-6.6) H 08/18/17 18:42 Lymph # 1.6 10^3/uL (1.5-3.5) 08/18/17 18:42 Mccracken # 1.0 10^3/uL (0.0-1.0) 08/18/17 18:42 Eos # 0.2 10^3/uL (0.0-0.7) 08/18/17 18:42 Baso # 0.1 10^3/uL (0.0-0.1) 08/18/17 18:42 Absolute Nucleated RBC 0.00 x10^3/uL 08/18/17 18:42 Nucleated RBC % 0.0 /100WBC 08/18/17 18:42 ESR 39 mm/Hr (0-20) H 08/18/17 18:51 Sodium 137 mmol/L (135-145) 08/18/17 18:42 Potassium 5.2 mmol/L (3.5-5.0) H 08/18/17 18:42 Chloride 101 mmol/L (101-111) 08/18/17 18:42 Carbon Dioxide 25 mmol/L (21-32) 08/18/17 18:42 Anion Gap 11.0 (6-13) 08/18/17 18:42 BUN 42 mg/dL (6-20) H 08/18/17 18:42 Creatinine 1.8 mg/dL (0.6-1.2) H 08/18/17 18:42 Estimated GFR (MDRD) 37 (>89) L 08/18/17 18:42 Glucose 101 mg/dL (70-100) H 08/18/17 18:42 POC Whole Bld Glucose 70 mg/dL (70 - 100) 08/18/17 21:31 Glycated Hemoglobin 7.6 % (4.6-6.2) H 08/18/17 18:42 Estim Average Glucose 171 (70-100) H 08/18/17 18:42 Lactic Acid 1.4 mmol/L (0.5-2.2) 08/18/17 18:42 Calcium 9.5 mg/dL (8.5-10.3) 08/18/17 18:42 Total Bilirubin 0.6 mg/dL (0.2-1.0) 08/18/17 18:42 AST 26 IU/L (10-42) 08/18/17 18:42 ALT 24 IU/L (10-60) 08/18/17 18:42 Alkaline Phosphatase 132 IU/L (42-121) H 08/18/17 18:42 C-Reactive Protein 19.9 mg/dL (0-1.0) H 08/18/17 18:42 Total Protein 8.3 g/dL (6.7-8.2) H 08/18/17 18:42 Albumin 3.1 g/dL (3.2-5.5) L 08/18/17 18:42 Globulin 5.2 g/dL (2.1-4.2) H 08/18/17 18:42 Albumin/Globulin Ratio 0.6 (1.0-2.2) L 08/18/17 18:42 Lipase 13 U/L (22-51) L 08/18/17 18:42 - Diagnostic Imaging Results Diagnostic Imaging Results: positive: Final report reviewed Diagnostic Imaging Results Comments: Right foot x-ray Impression: 1. Worsening midfoot and lateral tarsometatarsal fracture/dislocations 2. Extensive soft tissue swelling, with areas of soft tissue air, but no evidence of osteomyelitis. Core Measures - Anticipated LOS I expect patient to be DC'd or transferred within 96 hours.: Yes - DVT/VTE - Prophylaxis VTE/DVT Prophylaxis med ordered at admit?: Yes
[2017-08-19] MEDS: PIPERACILLIN/TAZOBACTAM 3.375 GM in SODIUM CHLORIDE 0.9% MINIBAG 100 ML IV SCH ×4 (00:52→19:21)
[2017-08-19] MEDS: SODIUM CHLORIDE FLUSH 0.9% 10 ML SYRINGE IVP SCH ×3 (00:52→17:06)
[2017-08-19] MEDS ORDERED: NALOXONE 0.4 MG/ML VIAL ONE (01:10)
[2017-08-19] MEDS ORDERED: DEXTROSE 50% ABBOJECT 25 GM/50 ML SYRINGE ONE (01:14)
[2017-08-19] MEDS ORDERED: SODIUM CHLORIDE 0.9% 1,000 ML IV ONE (02:39)
[2017-08-19] MEDS ORDERED: DEXTROSE 5%-0.9% NACL 1,000 ML IV SCH (03:00)
[2017-08-19] MEDS ORDERED: MIN OIL/DIMETHICON/COCONUT OIL 92 GM TUBE TOP PRN (06:15)
[2017-08-19 06:21] LABS: BASOPHILS % (AUTO) 0.4 %; EOSINOPHILS # (AUTO) 0.1 10^3/uL (0.0-0.7); EOSINOPHILS % (AUTO) 1.1 %; HGB - HEMOGLOBIN 8.9 g/dL (14.0-18.0); LYMPHOCYTES # (AUTO) 1.2 10^3/uL (1.5-3.5); LYMPHOCYTES % (AUTO) 11.8 %; MEAN CORPUSCULAR HEMOGLOBIN 29.1 pg (27.0-31.0); MEAN CORPUSCULAR VOLUME 90.8 fL (80.0-94.0); MEAN PLATELET VOLUME 6.6 fL (7.4-11.4); MONOCYTES # (AUTO) 0.9 10^3/uL (0.0-1.0); MONOCYTES % (AUTO) 8.9 %; NEUTROPHILS % (AUTO) 77.8 %; PLT - PLATELET COUNT 294 10^3/uL (130-450); RED BLOOD COUNT 3.06 10^6/uL (4.70-6.10); RED CELL DISTRIBUTION WIDTH 13.8 % (12.0-15.0); WHITE BLOOD COUNT 10.2 x10^3/uL (4.8-10.8)
[2017-08-19 06:31] LABS: CALCIUM 8.6 mg/dL (8.5-10.3); CREATININE 1.4 mg/dL (0.6-1.2)
--- NOTE | 2017-08-19 06:43 | CONSULTATION NOTE ---
PLEASE REVIEW BLANK, REMOVE THIS NOTE BEFORE SIGNING DATE OF SERVICE: 08/18/2017 Physician: Dylon Goodman MD CONSULT REQUESTED BY: Emergency physician and hospitalist. REASON FOR CONSULTATION: Right foot. HISTORY OF PRESENT ILLNESS: This 72-year-old retired [place] man came to the emergency room due to increasing pain in his right foot. His foot began to enlarge and become painful about a week ago. Some time in the middle of the week, he noticed some discharge on the floor of the bathroom he had been walking in. According to the patient, he has had neuropathy for quite a while, but his right foot was normal until a fall which occurred earlier this year. Based on the hospital record, it would appear that either April 01 or , he suffered a slip, which he describes as being off his truck running board, injuring the foot. He was seen here in the emergency room, radiographs showed a Lisfranc dislocation all the way across. He was instructed apparently to see the orthopedist but never did so. He got so that his foot did not hurt so much. He did have a walker apparently to use, but he started not using it much of the time. He had a wound on his hallux, under the care of a clutch specialist. That was as late as May or June. He was not getting treatment for anything on the bottom of his foot, which I take to mean that he did not have a wound at that time. He denies fevers or chills. He reports that although he has a neuropathy, which prevented him from feeling the plantar surface of his foot, he does have some dorsal foot sensation and now is having midfoot pain. MEDICAL HISTORY: He has multiple comorbidities, including diabetes and morbid obesity. PHYSICAL EXAMINATION: On exam, he is a pleasant, morbidly obese man. His right foot is severely swollen, erythematous and warm. The plantar wound has just been bandaged up. In the left foot, he has erythema but no warmth and no swelling or abnormal shape. He moves his ankle well. He has absent sensation on the plantar aspect of his toes. LABS: He has a sedimentation rate of 34, CRP of 19.9, elevated white count and left shift. RADIOGRAPHS: Today's 3-view of the foot shows what appears to be a Charcot foot with a dorsal dislocation of the metatarsals and some fragments of bone visible. The navicular is pointing to the area of his wound. The radiographs previously are interesting. April 02, he had a radiograph which showed a pure dislocation without fracture across Lisfranc joint. There is a dorsal dislocation of the 5 metatarsals with the cuneiforms also being displaced dorsally. There is a CT scan done April 30, which shows the dislocation pattern and appears to show some crumbling of bone as well. IMPRESSION: Right mid foot ulcer with infection in diabetic with deformed foot. The origin of this may be a little unusual for Charcot foot, but the effect is the same. He certainly needs to come in on IV antibiotics. Cultures will probably show multiple organisms. If his foot does not improve noticeably in a few days of IV antibiotics, then strong consideration should be for a below-knee amputation. This is itself not a very good choice for this man as I think he will have problems caring for his stump. On the other hand, the likelihood of an intractable infection is probably better than 50%. I discussed the case with Dr. Nilson Stevens. TD: 08/18/2017 21:44 KEYANNA
[2017-08-19 06:44] LABS: % IRON SATURATION 11 % (20-50); IRON 19 ug/dL (45-182); TOTAL IRON BINDING CAPACITY 167 ug/dL (250-450); TRANSFERRIN 119 mg/dL (180-329)
[2017-08-19 07:03] LABS: FOLATE 14.43 ng/mL (5.90 - >24.8)
[2017-08-19] MEDS: INSULIN ASPART 300 UNIT/3 ML PEN SUBQ SCH ×4 (09:15→21:43)
[2017-08-19] MEDS: amLODIPine 5 MG TABLET PO SCH (10:48)
[2017-08-19] MEDS: SACCHAROMYCES BOULARDII 250 MG CAPSULE PO SCH ×2 (10:48→17:05)
[2017-08-19] MEDS: ASPIRIN EC 81 MG TABLET PO SCH (10:49)
[2017-08-19] MEDS: LOSARTAN 50 MG TABLET PO SCH (10:49)
[2017-08-19] MEDS: ATORVASTATIN 40 MG TABLET PO SCH (10:49)
[2017-08-19] MEDS: FAMOTIDINE 20 MG TABLET PO SCH (10:49)
[2017-08-19] MEDS: LORATADINE 10 MG TABLET PO SCH (10:49)
[2017-08-19] MEDS: CARVEDILOL 12.5 MG TABLET PO SCH ×2 (10:49→21:43)
[2017-08-19] MEDS: ENOXAPARIN 40 MG/0.4 ML SYRINGE SUBQ SCH (10:50)
[2017-08-19] MEDS: POLYETHYLENE GLYCOL 3350 17 GM PACKET PO SCH ×2 (10:50→11:26)
[2017-08-19] MEDS: SPIRONOLACTONE 25 MG TABLET PO SCH (11:00)
[2017-08-19] MEDS: MORPHINE 2 MG/ML SYRINGE IVP PRN ×4 (13:10→22:30)
[2017-08-19] MEDS ORDERED: oxyCOD/ACETAMIN 5 MG/325 MG TABLET PO PRN (13:43)
--- NOTE | 2017-08-19 14:55 | PROVIDER PROGRESS NOTE ---
Subjective - Prog Note Date Prog Note Date: 08/19/17 Prog Note Time: 15:29 - Subjective Subjective: he is lethargic, speech is slurred and he is very very short tempered with and step son. He was altered enough that I asked his if this was his baseline. He was very angry and asked that I only ask him questions. While his and step son are ok to be in the room, I am not to ask them anything. But his and step son did confirm he has been more and more cranky at home, memory is getting worse and he is not wanting to get up or leave the house. She spends a lot of time trying to make him in a better mood but he's not responding. She is getting frustrated bc she fears how much worse he will get physically Current Medications - Current Medications Current Medications: Active Medications Acetaminophen (Tylenol) 650 mg PO Q4HR PRN PRN Reason: Pain 1 to 4 Albuterol/Ipratropium (Duoneb) 3 ml INH Q4HR PRN PRN Reason: Wheezing Amlodipine Besylate (Norvasc) 5 mg PO DAILY [facility] Last Admin: 08/19/17 10:48 Dose: 5 mg Aspirin (Ecotrin) 81 mg PO DAILY [facility] Last Admin: 08/19/17 10:49 Dose: 81 mg Atorvastatin Calcium (Lipitor) 40 mg PO DAILY [facility] Last Admin: 08/19/17 10:49 Dose: 40 mg Carvedilol (Coreg) 25 mg PO BID [facility] Last Admin: 08/19/17 10:49 Dose: 25 mg Diphenhydramine HCl (Benadryl Elixir) 12.5 mg PO Q6HR PRN PRN Reason: ITCHING Duloxetine HCl (Cymbalta) 60 mg PO QPM [facility] Last Admin: 08/18/17 22:19 Dose: 60 mg Enoxaparin Sodium (Lovenox) 40 mg SUBQ DAILY [facility] Last Admin: 08/19/17 10:50 Dose: 40 mg Famotidine (Pepcid) 20 mg PO DAILY [facility] Last Admin: 08/19/17 10:49 Dose: 20 mg Gabapentin (Neurontin) 1,200 mg PO QPM [facility] Last Admin: 08/18/17 22:19 Dose: 1,200 mg Piperacillin Sod/Tazobactam (Sod 3.375 gm/ Sodium Chloride) 100 mls @ 200 mls/ hr IV Q6HR [facility] Last Infusion: 08/19/17 13:56 Dose: Infused Sodium Chloride (Normal Saline 0.9%) 1,000 mls @ 83.333 mls/hr IV .Q12H [facility] Stop: 08/20/17 14:59 Vancomycin HCl 1.75 gm/ Sodium (Chloride) 500 mls @ 250 mls/hr IV Q12H [facility] Last Admin: 08/19/17 16:14 Dose: 250 mls/hr Insulin Aspart (Novolog) 1 - 9 unit SUBQ 0800,1200,1700,2100 [facility] PRN Reason: Protocol Last Admin: 08/19/17 12:27 Dose: Not Given Insulin Glargine (Lantus Solostar) 100 unit SUBQ BID [facility] Loratadine (Claritin) 10 mg PO DAILY [facility] Last Admin: 08/19/17 10:49 Dose: 10 mg Losartan Potassium (Cozaar) 50 mg PO DAILY [facility] Last Admin: 08/19/17 10:49 Dose: 50 mg Mineral Oil (Cavilon) 1 applic TOP PRN PRN PRN Reason: Skin Care Morphine Sulfate (Morphine) 2 mg IVP Q2H PRN PRN Reason: Pain 8 to 10 Last Admin: 08/19/17 15:06 Dose: 2 mg Ondansetron HCl (Zofran Inj) 4 mg IVP Q6HR PRN PRN Reason: Nausea / Vomiting Oxycodone HCl (Roxicodone) 10 mg PO Q4HR PRN PRN Reason: PAIN Last Admin: 08/19/17 15:05 Dose: 5 mg Polyethylene Glycol (Miralax) 17 gm PO DAILY [facility] Last Admin: 08/19/17 11:26 Dose: 17 gm Prochlorperazine Edisylate (Compazine Inj) 10 mg IVP Q6HR PRN PRN Reason: Nausea / Vomiting Promethazine HCl (Phenergan Inj) 25 mg IM Q6HR PRN PRN Reason: Nausea / Vomiting Saccharomyces Boulardii (Florastor) 250 mg PO BIDWM [facility] Last Admin: 08/19/17 10:48 Dose: 250 mg Sodium Chloride (Normal Saline Flush 0.9%) 10 ml IVP PRN PRN PRN Reason: NEEDED PER PROVIDER ORDERS Sodium Chloride (Normal Saline Flush 0.9%) 10 ml IVP 0100,0900,1700 [facility] Last Admin: 08/19/17 01:08 Dose: 30 ml Spironolactone (Aldactone) 25 mg PO DAILY [facility] Last Admin: 08/19/17 11:00 Dose: 25 mg Zolpidem Tartrate (Ambien) 5 mg PO QPM PRN PRN Reason: Insomnia Aspirin [Aspir 81] 81 mg PO DAILY PM 11/07/12 Carvedilol [Coreg] 25 mg PO BID 11/07/12 DULoxetine [Cymbalta] 60 mg PO QPM 11/07/12 Furosemide [Lasix] 40 mg PO BID 11/07/12 Loratadine 10 mg PO DAILY 11/07/12 Losartan Potassium [Cozaar] 50 mg PO DAILY PM 11/07/12 Omeprazole [PriLOSEC] 20 mg PO DAILY 11/07/12 Albuterol [Ventolin Hfa] 2 puffs INH Q4H PRN 04/01/15 Gabapentin 1,200 mg ORAL QPM 04/01/15 amLODIPine [Norvasc] 5 mg ORAL BID 04/01/15 Atorvastatin [Lipitor] 40 mg PO DAILY PM 05/29/15 Insulin Glargine,Hum.rec.anlog [Lantus] 110 units SUBQ BID 05/29/15 Oxycodone HCl/Acetaminophen [Oxycodone-Acetaminophen 10-325] 1 tab PO BID PRN Nitroglycerin 0.4 mg SL PRN PRN 08/19/17 Objective - Vital Signs/Intake & Output Reviewed Vital Signs: Yes Vital Signs: Vital Signs x48h Temp Pulse Resp BP Pulse Ox 08/19/17 10:56 36.6 C 79 16 123/75 97 08/19/17 08:00 88 L Intake & Output: Intake & Output 08/16/17 08/17/17 08/18/17 08/19/17 23:59 23:59 23:59 23:59 Intake Total 850 2735.553 Output Total 100 1300 Balance 750 1435.553 - Objective General Appearance: positive: No acute distress, Lethargic, Other (he has slurred speech, angry affect, stuggles to keep his eyes open sometimes.) Eyes Bilateral: positive: PERRL, EOMI ENT: positive: Dry mucous membranes Neck: positive: No JVD. negative: Carotid bruit Respiratory: positive: Chest non-tender, Rhonchi, Other (as I stand at the bedside before waking him up, he has several episodes of apnea and one lasted 32 seconds before he took a gasping breath. He states that his doctors have already told him this and to get a sleep study.). negative: Wheezes, Rales Cardiovascular: positive: Regular rate & rhythm. negative: Gallop/S4, Friction rub Abdomen: positive: Non-tender, Nml bowel sounds, No distention, Other (obese) Skin: positive: Warm, Dry, Other (skin that covers his shins and cavles is a solid hyperpigmented sheet of dark, dark skin.) Extremities: positive: Pedal edema, Other (right heel and right ball of foot covered in dressing.ankle is swollen and tender with ROM and he asks me to not examine his foot) Neurologic/Psychiatric: positive: CN's nml (2-12) (maybe deaf?), Motor nml, Disoriented to time, Slurred/abnml speech. negative: Mood/affect nml - Lab Results Fish Bones: 08/19/17 06:00 08/19/17 06:00 Other Labs: Lab Results x24hrs 08/19/17 08/19/17 08/19/17 Range/Units 11:49 11:07 09:14 WBC (4.8-10.8) x10^3/uL RBC (4.70-6.10) 10^6/uL Hgb (14.0-18.0) g/dL Hct (42.0-52.0) % MCV (80.0-94.0) fL MCH (27.0-31.0) pg MCHC (32.0-36.0) g/dL RDW (12.0-15.0) % Plt Count (130-450) 10^3/uL MPV (7.4-11.4) fL Neut # (1.5-6.6) 10^3/uL Lymph # (1.5-3.5) 10^3/uL Harney # (0.0-1.0) 10^3/uL Eos # (0.0-0.7) 10^3/uL Baso # (0.0-0.1) 10^3/uL Absolute Nucleated RBC x10^3/uL Nucleated RBC % /100WBC Sodium (135-145) mmol/L Potassium (3.5-5.0) mmol/L Chloride (101-111) mmol/L Carbon Dioxide (21-32) mmol/L Anion Gap (6-13) BUN (6-20) mg/dL Creatinine (0.6-1.2) mg/dL Estimated GFR (MDRD) (>89) Glucose (70-100) mg/dL POC Whole Bld Glucose 72 68 L 94 (70 - 100) mg/dL Calcium (8.5-10.3) mg/dL Iron (45-182) ug/dL TIBC (250-450) ug/dL % Saturation (20-50) % Transferrin (180-329) mg/dL Ferritin (23.9-336.2) ng/mL Vitamin B12 (180-914) pg/mL Folate (5.90 - >24.8) ng/mL 08/19/17 08/19/17 08/19/17 Range/Units 06:00 06:00 06:00 WBC (4.8-10.8) x10^3/uL RBC (4.70-6.10) 10^6/uL Hgb (14.0-18.0) g/dL Hct (42.0-52.0) % MCV (80.0-94.0) fL MCH (27.0-31.0) pg MCHC (32.0-36.0) g/dL RDW (12.0-15.0) % Plt Count (130-450) 10^3/uL MPV (7.4-11.4) fL Neut # (1.5-6.6) 10^3/uL Lymph # (1.5-3.5) 10^3/uL Harney # (0.0-1.0) 10^3/uL Eos # (0.0-0.7) 10^3/uL Baso # (0.0-0.1) 10^3/uL Absolute Nucleated RBC x10^3/uL Nucleated RBC % /100WBC Sodium (135-145) mmol/L Potassium (3.5-5.0) mmol/L Chloride (101-111) mmol/L Carbon Dioxide (21-32) mmol/L Anion Gap (6-13) BUN (6-20) mg/dL Creatinine (0.6-1.2) mg/dL Estimated GFR (MDRD) (>89) Glucose (70-100) mg/dL POC Whole Bld Glucose (70 - 100) mg/dL Calcium (8.5-10.3) mg/dL Iron 19 L (45-182) ug/dL TIBC 167 L (250-450) ug/dL % Saturation 11 L (20-50) % Transferrin 119 L (180-329) mg/dL Ferritin 718.9 H (23.9-336.2) ng/mL Vitamin B12 1315 H (180-914) pg/mL Folate 14.43 (5.90 - >24.8) ng/mL 08/19/17 08/19/17 08/19/17 Range/Units 06:00 06:00 05:48 WBC 10.2 (4.8-10.8) x10^3/uL RBC 3.06 L (4.70-6.10) 10^6/uL Hgb 8.9 L (14.0-18.0) g/dL Hct 27.8 L (42.0-52.0) % MCV 90.8 (80.0-94.0) fL MCH 29.1 (27.0-31.0) pg MCHC 32.0 (32.0-36.0) g/dL RDW 13.8 (12.0-15.0) % Plt Count 294 (130-450) 10^3/uL MPV 6.6 L (7.4-11.4) fL Neut # 8.0 H (1.5-6.6) 10^3/uL Lymph # 1.2 L (1.5-3.5) 10^3/uL Harney # 0.9 (0.0-1.0) 10^3/uL Eos # 0.1 (0.0-0.7) 10^3/uL Baso # 0.0 (0.0-0.1) 10^3/uL Absolute Nucleated RBC 0.00 x10^3/uL Nucleated RBC % 0.0 /100WBC Sodium 137 (135-145) mmol/L Potassium 5.0 (3.5-5.0) mmol/L Chloride 106 (101-111) mmol/L Carbon Dioxide 25 (21-32) mmol/L Anion Gap 6.0 (6-13) BUN 34 H (6-20) mg/dL Creatinine 1.4 H (0.6-1.2) mg/dL Estimated GFR (MDRD) 50 L (>89) Glucose 101 H (70-100) mg/dL POC Whole Bld Glucose 90 (70 - 100) mg/dL Calcium 8.6 (8.5-10.3) mg/dL Iron (45-182) ug/dL TIBC (250-450) ug/dL % Saturation (20-50) % Transferrin (180-329) mg/dL Ferritin (23.9-336.2) ng/mL Vitamin B12 (180-914) pg/mL Folate (5.90 - >24.8) ng/mL 08/19/17 08/19/17 08/19/17 Range/Units 02:35 01:11 01:02 WBC (4.8-10.8) x10^3/uL RBC (4.70-6.10) 10^6/uL Hgb (14.0-18.0) g/dL Hct (42.0-52.0) % MCV (80.0-94.0) fL MCH (27.0-31.0) pg MCHC (32.0-36.0) g/dL RDW (12.0-15.0) % Plt Count (130-450) 10^3/uL MPV (7.4-11.4) fL Neut # (1.5-6.6) 10^3/uL Lymph # (1.5-3.5) 10^3/uL Harney # (0.0-1.0) 10^3/uL Eos # (0.0-0.7) 10^3/uL Baso # (0.0-0.1) 10^3/uL Absolute Nucleated RBC x10^3/uL Nucleated RBC % /100WBC Sodium (135-145) mmol/L Potassium (3.5-5.0) mmol/L Chloride (101-111) mmol/L Carbon Dioxide (21-32) mmol/L Anion Gap (6-13) BUN (6-20) mg/dL Creatinine (0.6-1.2) mg/dL Estimated GFR (MDRD) (>89) Glucose (70-100) mg/dL POC Whole Bld Glucose 71 126 H 31 L* (70 - 100) mg/dL Calcium (8.5-10.3) mg/dL Iron (45-182) ug/dL TIBC (250-450) ug/dL % Saturation (20-50) % Transferrin (180-329) mg/dL Ferritin (23.9-336.2) ng/mL Vitamin B12 (180-914) pg/mL Folate (5.90 - >24.8) ng/mL 08/18/17 Range/Units 21:31 WBC (4.8-10.8) x10^3/uL RBC (4.70-6.10) 10^6/uL Hgb (14.0-18.0) g/dL Hct (42.0-52.0) % MCV (80.0-94.0) fL MCH (27.0-31.0) pg MCHC (32.0-36.0) g/dL RDW (12.0-15.0) % Plt Count (130-450) 10^3/uL MPV (7.4-11.4) fL Neut # (1.5-6.6) 10^3/uL Lymph # (1.5-3.5) 10^3/uL Harney # (0.0-1.0) 10^3/uL Eos # (0.0-0.7) 10^3/uL Baso # (0.0-0.1) 10^3/uL Absolute Nucleated RBC x10^3/uL Nucleated RBC % /100WBC Sodium (135-145) mmol/L Potassium (3.5-5.0) mmol/L Chloride (101-111) mmol/L Carbon Dioxide (21-32) mmol/L Anion Gap (6-13) BUN (6-20) mg/dL Creatinine (0.6-1.2) mg/dL Estimated GFR (MDRD) (>89) Glucose (70-100) mg/dL POC Whole Bld Glucose 70 (70 - 100) mg/dL Calcium (8.5-10.3) mg/dL Iron (45-182) ug/dL TIBC (250-450) ug/dL % Saturation (20-50) % Transferrin (180-329) mg/dL Ferritin (23.9-336.2) ng/mL Vitamin B12 (180-914) pg/mL Folate (5.90 - >24.8) ng/mL ABX Reporting Has patient been on IV antibiotics over the past 48 hours?: Yes Assessment/Plan - Problem List (1) Cellulitis of foot, right Impression: The patient presented with right foot and ankle swelling, pain and drainage from the right heel. The patient had a fracture of his right foot from April 2017 which has not been healing and in fact looks worse today on x-ray. Subsequently he has also developed swelling, erythema, tenderness, pain and drainage from the right foot consistent with a cellulitis. The patient has a leukocytosis on presentation but no fevers and otherwise vital signs are stable. Orthopedic surgery was consulted in the emergency department and did see the patient. They recommend that the patient be admitted to the hospital for IV antibiotics for at least 2 days and then the patient will be reevaluated to see if he needs amputation of the foot as the patient appears to have Charcot joint although this is unusual to be only in 1 foot but regardless his fractures do not appear to be healing and the patient's infection will only get worse and likely end up in the bone. This morning Vicodin and Morphine were not controlled the pain. Changed to his home percocet. Still not controlling pain. He was lethargic last night and after dilaudid and morphine needed a dose of Narcan. So I hesitate to give too much today. Plan: IV vancomycin and Zosyn. Day #2 I initially stopped the vancomycin when the wound culture returned with MSSA this morning. Later this afternoon, the blood culture returned with MRSA so Vancomycin resumed with pharmacy to dose. IV fluids to stop after 2 liters Orthopedic surgery consultation ongoing Monitor for improvement in cellulitis over next 48 hours otherwise patient will need amputation. If he does need an amputation, start planning for SNF and wound care SUNIL. The patient does have uncontrolled pain of the right foot and will be placed on IV morphine prn and will change percocet to oxycodone 10 mg q4 hr prn. (2) Foot fracture, right Conclusion/Plan: The patient states that he fractured his foot in April 2017 when he was stepping into his truck. He did have an ER visit at that time and was found to have dislocated fracture of the right midfoot and was placed in a walking cast. The patient was not compliant with the cast and subsequently has developed worsening midfoot and lateral tarsometatarsal fracture/dislocations according to x-ray done today. The patient is also developed cellulitis of the right foot and has a draining ulcer on the bottom of his right heel. Orthopedic surgery was consulted and they recommended IV antibiotics and monitoring for 48 hours and then reassessment for potential amputation of the right foot. Plan: Patient will receive IV antibiotics with vancomycin and Zosyn to treat cellulitis overlying his right foot fracture. Day #2 Orthopedic surgery has been consulted and will give recommendations as far as weightbearing status We will monitor for 48 hours to see if there is significant improvement in the patient's cellulitis otherwise patient will require a amputation of the right foot. Pain control with IV morphine, oxycodone prn Qualifiers: Encounter type: subsequent encounter Fracture type: closed Fracture healing: with delayed healing Qualified Code(s): S92.901G - Unspecified fracture of right foot, subsequent encounter for fracture with delayed healing (3) RAFAEL (acute kidney injury) Conclusion/Plan: The patient has a creatinine of 1.8 on presentation his previous baseline is around 1.1-1.2. The patient does take Lasix at home and does appear to be dry on examination. At this point we will treat his renal failure as prerenal azotemia and give him IV fluids while holding his Lasix. We will monitor his creatinine and avoid any nephrotoxic agents. This am his creat has improved to 1.4. I will give him 2 more liters then stop. (4) Iron deficiency Anemia Conclusion/Plan: The patient has anemia which appears to be chronic but is worse on admission. The patient's hemoglobin was 9.9 with his normal baseline is between 11 and 12. The patient has been having bloody drainage from the right foot but this does not appear to be enough to cause his hemoglobin to drop. Laboratory Tests 08/19/17 08/19/17 08/19/17 06:00 06:00 06:00 Iron 19 L TIBC 167 L % Saturation 11 L Transferrin 119 L Ferritin 718.9 H Vitamin B12 1315 H Folate 14.43 Plan: We will monitor hemoglobin daily. Transfuse if <8 grams Hgb. In the outpatient setting, will need to review with his PCP his latest colonoscopy. Check stool for FOBT here. Qualifiers: Anemia type: iron deficiency (5) Diabetes Conclusion/Plan: Patient has a history of type 2 diabetes and is insulin-dependent. The patient' s hemoglobin A1c is 7.6 and he does have complications of peripheral neuropathy specifically in his feet. On presentation the patient is hypoglycemic with a glucose of 53. The patient uses Lantus 100 units twice daily at home. Given his hypoglycemia we will need to hold his dose of Lantus tonight. Plan: Patient will be continued on Lantus 100 IU bid, but we may need to adjust the dose Patient be placed on sliding scale insulin while he is hospitalized He was on D5NS but I have changed to only NS Patient will be placed on diabetic diet We will check blood glucose before meals at bedtime Qualifiers: Diabetes mellitus type: type 2 Diabetes mellitus longterm insulin use: with long term care pharmacist use Diabetes mellitus complication status: with hypoglycemia Diabetes mellitus complication detail: without coma Qualified Code(s): E11.649 - Type 2 diabetes mellitus with hypoglycemia without coma; Z79.4 - long term care pharmacist (current) use of insulin; Z79.4 - prison (current) use of insulin; Z79.4 - prison (current) use of insulin; Z79.4 - prison (current) use of insulin (6) Hypertension Conclusion/Plan: The patient has a history of hypertension but blood pressure is well controlled on presentation to the emergency department. The patient uses Coreg, Cozaar, Aldactone, Norvasc and Lasix for blood pressure control. We will continue the patient on his home medications but we are holding the Lasix as he does appear to be dry on examination. We will continue to monitor blood pressure and titrate medications as needed. today's systolic has been 102-153. No change in meds for now. Qualifiers: Hypertension type: essential hypertension Qualified Code(s): I10 - Essential (primary) hypertension (7) Peripheral neuropathy Conclusion/Plan: The patient does appear to have diabetic peripheral neuropathy in his feet. This could be contributing to why the patient got an ulcer on the bottom of his foot and now has cellulitis of his right foot. The patient takes gabapentin at home for peripheral neuropathy and we will continue this while he is hospitalized. Qualifiers: Peripheral neuropathy type: polyneuropathy associated with underlying disease Qualified Code(s): G63 - Polyneuropathy in diseases classified elsewhere
[2017-08-19] MEDS ORDERED: VANCOMYCIN PER PHARMACY 100 GM in SODIUM CHLORIDE 0.9% 250 ML IV SCH (15:00)
[2017-08-19] MEDS: oxyCODONE 5 MG TABLET PO PRN ×2 (15:05→19:20)
[2017-08-19] MEDS: VANCOMYCIN INJ 1.75 GM in SODIUM CHLORIDE 0.9% 500 ML IV SCH (16:14)
[2017-08-19] MEDS: diphenhydrAMINE ELIXIR 25 MG/10 ML UDC PO PRN (16:53)
[2017-08-19] MEDS: SODIUM CHLORIDE 0.9% 1,000 ML IV SCH (16:55)
[2017-08-19] MEDS: SODIUM CHLORIDE FLUSH 0.9% 10 ML SYRINGE IVP PRN (18:07)
[2017-08-19] MEDS ORDERED: INSULIN GLARGINE 300 UNIT/3 ML PEN SUBQ SCH (21:00)
[2017-08-19] MEDS: GABAPENTIN 400 MG CAPSULE PO SCH (21:43)
[2017-08-19] MEDS: DULoxetine 30 MG CAPSULE PO SCH (21:43)
[2017-08-19] MEDS: INSULIN GLARGINE 300 UNIT/3 ML PEN SUBQ SCH (22:29)
[2017-08-20] MEDS: diphenhydrAMINE ELIXIR 25 MG/10 ML UDC PO PRN ×2 (01:04→19:38)
[2017-08-20] MEDS: oxyCODONE 5 MG TABLET PO PRN ×5 (01:14→22:53)
[2017-08-20] MEDS: VANCOMYCIN INJ 1.75 GM in SODIUM CHLORIDE 0.9% 500 ML IV SCH ×2 (03:37→16:57)
[2017-08-20 05:51] LABS: BASOPHILS # (AUTO) 0.1 10^3/uL (0.0-0.1); BASOPHILS % (AUTO) 0.7 %; EOSINOPHILS # (AUTO) 0.2 10^3/uL (0.0-0.7); EOSINOPHILS % (AUTO) 2.5 %; HGB - HEMOGLOBIN 8.7 g/dL (14.0-18.0); LYMPHOCYTES # (AUTO) 1.6 10^3/uL (1.5-3.5); LYMPHOCYTES % (AUTO) 19.6 %; MEAN CORPUSCULAR HEMOGLOBIN 29.6 pg (27.0-31.0); MEAN CORPUSCULAR HGB CONC 32.8 g/dL (32.0-36.0); MEAN CORPUSCULAR VOLUME 90.4 fL (80.0-94.0); MEAN PLATELET VOLUME 6.3 fL (7.4-11.4); MONOCYTES # (AUTO) 1.2 10^3/uL (0.0-1.0); MONOCYTES % (AUTO) 14.9 %; NEUTROPHILS # (AUTO) 5.1 10^3/uL (1.5-6.6); NEUTROPHILS % (AUTO) 62.3 %; PLT - PLATELET COUNT 282 10^3/uL (130-450); RED BLOOD COUNT 2.95 10^6/uL (4.70-6.10); RED CELL DISTRIBUTION WIDTH 13.8 % (12.0-15.0); WHITE BLOOD COUNT 8.2 x10^3/uL (4.8-10.8)
[2017-08-20 05:59] LABS: CALCIUM 8.5 mg/dL (8.5-10.3); CREATININE 1.3 mg/dL (0.6-1.2)
[2017-08-20] MEDS: SODIUM CHLORIDE FLUSH 0.9% 10 ML SYRINGE IVP SCH ×3 (05:59→19:40)
[2017-08-20] MEDS: LORATADINE 10 MG TABLET PO SCH (08:33)
[2017-08-20] MEDS: amLODIPine 5 MG TABLET PO SCH (08:33)
[2017-08-20] MEDS: SPIRONOLACTONE 25 MG TABLET PO SCH (08:33)
[2017-08-20] MEDS: SACCHAROMYCES BOULARDII 250 MG CAPSULE PO SCH ×2 (08:33→19:39)
[2017-08-20] MEDS: CARVEDILOL 12.5 MG TABLET PO SCH ×2 (08:34→20:35)
[2017-08-20] MEDS: ASPIRIN EC 81 MG TABLET PO SCH (08:34)
[2017-08-20] MEDS: LOSARTAN 50 MG TABLET PO SCH (08:34)
[2017-08-20] MEDS: ATORVASTATIN 40 MG TABLET PO SCH (08:34)
[2017-08-20] MEDS: POLYETHYLENE GLYCOL 3350 17 GM PACKET PO SCH (08:35)
[2017-08-20] MEDS: INSULIN ASPART 300 UNIT/3 ML PEN SUBQ SCH ×4 (08:35→22:17)
[2017-08-20] MEDS: FAMOTIDINE 20 MG TABLET PO SCH (08:35)
[2017-08-20] MEDS: ENOXAPARIN 40 MG/0.4 ML SYRINGE SUBQ SCH (08:35)
[2017-08-20] MEDS: SODIUM CHLORIDE 0.9% 1,000 ML IV SCH (08:39)
[2017-08-20] MEDS: MORPHINE 2 MG/ML SYRINGE IVP PRN ×4 (09:18→20:35)
[2017-08-20] MEDS: DOCUSATE SODIUM 250 MG CAPSULE PO SCH (09:18)
[2017-08-20] MEDS: SENNA 8.6 MG TABLET PO SCH (09:19)
[2017-08-20] MEDS: INSULIN GLARGINE 300 UNIT/3 ML PEN SUBQ SCH ×2 (11:28→22:18)
--- NOTE | 2017-08-20 16:34 | PROVIDER PROGRESS NOTE ---
Assessment/Plan - Problem List (1) Cellulitis of foot, right Assessment/Plan: Continue empiric iv antibiotics. Awaiting culture results and if pos. will adjust antibiotics accordingly. (2) Charcot's joint of right foot Assessment/Plan: I spoke to Dr Randle, who asked for a foot and leg MRI to image extent of involvement of osteo. The patient has already heard that an mputation may be needed. (3) Insulin dependent diabetes mellitus Assessment/Plan: Continue DM diet and Insulin coverage and glu checks. (4) Venous stasis dermatitis of both lower extremities Assessment/Plan: Stable (5) Cor pulmonale (chronic) Assessment/Plan: Stable - Current Meds Current Meds: Current Medications Generic Name Dose Route Start Last Admin Trade Name Freq PRN Reason Stop Dose Admin Amlodipine Besylate 5 mg 08/19/17 09:00 08/20/17 08:33 Norvasc PO 5 mg DAILY CATIE Administration Aspirin 81 mg 08/19/17 09:00 08/20/17 08:34 Ecotrin PO 81 mg DAILY CATIE Administration Atorvastatin Calcium 40 mg 08/19/17 09:00 08/20/17 08:34 Lipitor PO 40 mg DAILY CATIE Administration Carvedilol 25 mg 08/18/17 21:00 08/20/17 08:34 Coreg PO 25 mg BID CATIE Administration Diphenhydramine HCl 12.5 mg 08/19/17 13:43 08/20/17 01:04 Benadryl Elixir PO 12.5 mg Q6HR PRN Administration ITCHING Docusate Sodium 250 - 500 mg 08/20/17 10:00 08/20/17 09:18 Colace 250mg Capsule PO 500 mg DAILY CATIE Administration Duloxetine HCl 60 mg 08/18/17 21:00 08/19/17 21:43 Cymbalta PO 60 mg QPM CATIE Administration Enoxaparin Sodium 40 mg 08/19/17 09:00 08/20/17 08:35 Lovenox SUBQ 40 mg DAILY CATIE Administration Famotidine 20 mg 08/19/17 09:00 08/20/17 08:35 Pepcid PO 20 mg DAILY CATIE Administration Gabapentin 1,200 mg 08/18/17 21:00 08/19/17 21:43 Neurontin PO 1,200 mg QPM CATIE Administration Vancomycin HCl 1.75 gm/ Sodium 500 mls @ 250 mls/hr 08/19/17 15:30 08/20/17 05:58 Chloride IV Infused Q12H [facility] Infusion Insulin Aspart 1 - 5 unit 08/20/17 12:00 08/20/17 11:28 Novolog SUBQ Not Given 0800,1200,1700,2100 [facility] Protocol Loratadine 10 mg 08/19/17 09:00 08/20/17 08:33 Claritin PO 10 mg DAILY CATIE Administration Losartan Potassium 50 mg 08/19/17 09:00 08/20/17 08:34 Cozaar PO 50 mg DAILY CATIE Administration Morphine Sulfate 4 mg 08/19/17 20:35 08/20/17 12:33 Morphine IVP 4 mg Q2H PRN Administration Pain 8 to 10 Oxycodone HCl 10 mg 08/19/17 14:53 08/20/17 12:33 Roxicodone PO 10 mg Q4HR PRN Administration PAIN Polyethylene Glycol 17 gm 08/19/17 09:00 08/20/17 08:35 Miralax PO 17 gm DAILY CATIE Administration Saccharomyces Boulardii 250 mg 08/19/17 08:00 08/20/17 08:33 Florastor PO 250 mg BIDWM CATIE Administration Senna 8.6 - 17.2 mg 08/20/17 10:00 08/20/17 09:19 Senokot PO 8.6 mg DAILY CATIE Administration Sodium Chloride 10 ml 08/18/17 20:07 08/19/17 18:07 Normal Saline Flush 0.9% IVP 10 ml PRN PRN Administration NEEDED PER PROVIDER ORDERS Sodium Chloride 10 ml 08/19/17 01:00 08/20/17 08:40 Normal Saline Flush 0.9% IVP Not Given 0100,0900,1700 CATIE Spironolactone 25 mg 08/19/17 09:00 08/20/17 08:33 Aldactone PO 25 mg DAILY CATIE Administration - Lab Result Fish Bone Diagrams: 08/21/17 05:55 08/21/17 05:55 - Additional Planning My Orders: My Active Orders 08/20/17 Foot RT W/WO [MRI] Routine Lower Leg (Tib-Fib) RT W/WO [MRI] Routine 08/20/17 10:00 Docusate Sodium 250Mg Capsule [Colace 250Mg Capsule] 250 - 500 mg PO DAILY Senna [Senokot] 8.6 - 17.2 mg PO DAILY 08/20/17 12:00 Insulin Aspart [NovoLOG] 1 - 5 unit SUBQ 0800,1200,1700,2100 08/20/17 21:00 Insulin Glargine [Lantus Solostar] 50 unit SUBQ QPM Subjective - Subjective Patient Reports: Resting Comfortably, Other (Pt has not seen Ortho in F/U yet.) Objective Vital Signs: Vital Signs - 24 hr 08/19/17 08/20/17 08/20/17 23:17 00:00 07:25 Temperature 36.8 C 37.3 C Heart Rate 79 Heart Rate [ 80 84 Brachial] Respiratory 16 18 18 Rate Blood Pressure 137/71 H 144/68 H [Right Brachial artery] O2 Saturation 98 99 08/20/17 07:30 Temperature Heart Rate 84 Heart Rate [ Brachial] Respiratory 16 Rate Blood Pressure [Right Brachial artery] O2 Saturation Oxygen O2 Source Nasal cannula I&O (Last 24 Hrs): Intake and Output Totals x24h 08/18/17 08/19/17 08/20/17 23:59 23:59 23:59 Intake Total 850 4405.000 3320.000 Output Total 100 2300 2050 Balance 750 2105.000 1270.000 General: Alert HEENT: Mucous membr. moist/pink Neuro: Non Focal Cardiovascular: No murmurs Respiratory: No respiratory distress Abdomen: Soft, Other (Obese with pannus) Extremities: Other (R foot bandaged and 1+ edema, B vera venous stasis changes) - Results Results: Laboratory Results WBC 8.2 x10^3/uL (4.8-10.8) 08/20/17 05:43 RBC 2.95 10^6/uL (4.70-6.10) L 08/20/17 05:43 Hgb 8.7 g/dL (14.0-18.0) L 08/20/17 05:43 Hct 26.7 % (42.0-52.0) L 08/20/17 05:43 MCV 90.4 fL (80.0-94.0) 08/20/17 05:43 MCH 29.6 pg (27.0-31.0) 08/20/17 05:43 MCHC 32.8 g/dL (32.0-36.0) 08/20/17 05:43 RDW 13.8 % (12.0-15.0) 08/20/17 05:43 Plt Count 282 10^3/uL (130-450) 08/20/17 05:43 MPV 6.3 fL (7.4-11.4) L 08/20/17 05:43 Neut # 5.1 10^3/uL (1.5-6.6) 08/20/17 05:43 Lymph # 1.6 10^3/uL (1.5-3.5) 08/20/17 05:43 Ross # 1.2 10^3/uL (0.0-1.0) H 08/20/17 05:43 Eos # 0.2 10^3/uL (0.0-0.7) 08/20/17 05:43 Baso # 0.1 10^3/uL (0.0-0.1) 08/20/17 05:43 Absolute Nucleated RBC 0.00 x10^3/uL 08/20/17 05:43 Nucleated RBC % 0.0 /100WBC 08/20/17 05:43 ESR 39 mm/Hr (0-20) H 08/18/17 18:51 Sodium 135 mmol/L (135-145) 08/20/17 05:43 Potassium 4.7 mmol/L (3.5-5.0) 08/20/17 05:43 Chloride 104 mmol/L (101-111) 08/20/17 05:43 Carbon Dioxide 24 mmol/L (21-32) 08/20/17 05:43 Anion Gap 7.0 (6-13) 08/20/17 05:43 BUN 22 mg/dL (6-20) H 08/20/17 05:43 Creatinine 1.3 mg/dL (0.6-1.2) H 08/20/17 05:43 Estimated GFR (MDRD) 54 (>89) L 08/20/17 05:43 Glucose 77 mg/dL (70-100) 08/20/17 05:43 POC Whole Bld Glucose 130 mg/dL (70 - 100) H 08/20/17 11:19 Glycated Hemoglobin 7.6 % (4.6-6.2) H 08/18/17 18:42 Estim Average Glucose 171 (70-100) H 08/18/17 18:42 Lactic Acid 1.4 mmol/L (0.5-2.2) 08/18/17 18:42 Calcium 8.5 mg/dL (8.5-10.3) 08/20/17 05:43 Iron 19 ug/dL (45-182) L 08/19/17 06:00 TIBC 167 ug/dL (250-450) L 08/19/17 06:00 % Saturation 11 % (20-50) L 08/19/17 06:00 Transferrin 119 mg/dL (180-329) L 08/19/17 06:00 Ferritin 718.9 ng/mL (23.9-336.2) H 08/19/17 06:00 Total Bilirubin 0.6 mg/dL (0.2-1.0) 08/18/17 18:42 AST 26 IU/L (10-42) 08/18/17 18:42 ALT 24 IU/L (10-60) 08/18/17 18:42 Alkaline Phosphatase 132 IU/L (42-121) H 08/18/17 18:42 C-Reactive Protein 19.9 mg/dL (0-1.0) H 08/18/17 18:42 Total Protein 8.3 g/dL (6.7-8.2) H 08/18/17 18:42 Albumin 3.1 g/dL (3.2-5.5) L 08/18/17 18:42 Globulin 5.2 g/dL (2.1-4.2) H 08/18/17 18:42 Albumin/Globulin Ratio 0.6 (1.0-2.2) L 08/18/17 18:42 Lipase 13 U/L (22-51) L 08/18/17 18:42 Vitamin B12 1315 pg/mL (180-914) H 08/19/17 06:00 Folate 14.43 ng/mL (5.90 - >24.8) 08/19/17 06:00 ABX Reporting Has patient been on IV antibiotics over the past 48 hours?: Yes
[2017-08-20] MEDS ORDERED: GADOBUTROL 15 MMOL/15 ML VIAL ONE (17:18)
[2017-08-20] MEDS ORDERED: GADOBUTROL 15 MMOL/15 ML VIAL IVP ONE (18:34)
[2017-08-20] MEDS: SODIUM CHLORIDE FLUSH 0.9% 10 ML SYRINGE IVP PRN ×2 (19:38→20:35)
--- NOTE | 2017-08-20 19:54 | MRI Preliminary Report ---
Exam: MRI LOWER LEG (TIB-FIB) RT W/WO IMPRESSION: Mild medial cellulitis without abscess or osteophyte myelitis. [facility] SITE ID: [id number]
--- NOTE | 2017-08-20 20:04 | MRI Preliminary Report ---
Exam: MRI FOOT RT W/WO IMPRESSION: 1. Limited evaluation due to technique. 2. Complete midfoot dislocation. 3. Also in the plantar midfoot associated with an intramuscular abscess and undoubtedly osteomyelitis within the third cuneiform and cuboid. The extent of the additional surrounding midfoot and hindfoot bones which have osteomyelitis is somewhat difficult to be certain of on this examination as the tra alana, dislocation, and Charcot joint ball result in edema and low T1 signal. A dual isotope void blood cell scan could determine the extent of osteomyelitis. 4. Complete tear of the flexor pollicis longus tendon. [facility] SECTION SITE ID: [id number]
[2017-08-20] MEDS: GABAPENTIN 400 MG CAPSULE PO SCH (20:36)
[2017-08-20] MEDS: DULoxetine 30 MG CAPSULE PO SCH (20:36)
[2017-08-20] MEDS ORDERED: INSULIN GLARGINE 300 UNIT/3 ML PEN SUBQ SCH ×2 (21:00→21:59)
--- NOTE | 2017-08-20 21:54 | MRI Report ---
EXAM: RIGHT CALF/TIBIA MRI WITHOUT AND WITH CONTRAST EXAM DATE: 08/20/2017 07:23 PM. CLINICAL HISTORY: Swelling and pain. Evaluate for osteomyelitis. COMPARISON: None. TECHNIQUE: Multiplanar, multisequence T1-weighted and fluid-sensitive sequences of the calf/tibia bef ore and after administration of intravenous contrast. IV contrast: 13ML GADAVIST. Other: None. FINDINGS: Bones: No fractures or subluxations. No marrow edema or abnormal enhancement. No bone lesions. Joint Spaces: Visualized portions of the ankle and knee joints are unremarkable. Tendons: Where visualized, the Achilles and plantaris tendons are intact. Musculature: There is moderate fatty atrophy and edema in the calf musculature. The muscle edema does enhance. This is most likely denervation injury. Other: The patient has mild enhancing cellulitis of the medial portion of the calf. No drainable flui d collections. IMPRESSION: Mild medial cellulitis without abscess or osteomyelitis. [facility] SE[facility] Referring Provider Line: [phone] SITE ID: [id number]
--- NOTE | 2017-08-20 21:56 | MRI Report ---
EXAM: RIGHT FOOT MRI WITHOUT AND WITH CONTRAST EXAM DATE: 08/20/2017 07:22 PM. CLINICAL HISTORY: Diabetic with fracture in April 2017. COMPARISON: None. TECHNIQUE: Multiplanar, multisequence T1-weighted and fluid-sensitive sequences of the forefoot befor e and after administration of intravenous contrast. IV contrast: 13ML GADAVIST. Other: None. FINDINGS: Evaluation is limited by the large [id number] and large slice thickness used on this lucy dy. Bones: There is a complete midfoot dislocation with the separation plane between the talus and navicu lar and the cuboid and the metatarsals. The more distal tarsals and metatarsals are dorsally displace d relative to the talus. The third cuneiform appears to have traveled with the cuboid rather than the other cuneiforms. Given the large [id number] and overall edema in the midfoot bones, it is diffic ult to exclude subtle fractures. There is some irregularity of the navicular suggesting that there ma y have been a fracture of that bone. An erosion is at the base of the fifth metatarsal. Diffuse low T 1 signal is seen within the midfoot bones that includes the entire talus, posterior portion of the ti eleanor, anterior half of the calcaneus, all of the tarsal bones, the entire fifth metatarsal, the proxim al 80% of the fourth metatarsal, the proximal third of the third metatarsal and the proximal third of the second metatarsal. Joints: Moderate tibiotalar and posterior subtalar joint effusions are present. Ligaments: Undoubtedly multiple midfoot ligaments are torn. The Lisfranc ligament though is intact. Tendons: Subtle evaluation of the tendons is limited by the technique. The flexor hallicus longus ten don appears to be completely torn at the level of the anterior calcaneus with most of the tendon retr acted distally. The peroneus longus tendon is mildly thickened distal to the lateral malleolus. Musculature: The musculature is edematous and enhances. There is a multilobulated abscess within the midfoot plantar musculature which measures 2.7 x 8.6 x 2.4 cm (series 1101, image 32). It spans all 5 digits. Other: There is an ulcer of the plantar mid foot that extends to the cuboid and third cuneiform. Al so communicates with the intramuscular abscess. Cellulitis in the plantar midfoot surrounds the ulcer . IMPRESSION: 1. Limited evaluation due to technique. 2. Complete midfoot dislocation. 3. Ulcer in the plantar midfoot associated with the intramuscular abscess and undoubtedly osteomyelit is within the third cuneiform and cuboid. The extent of the additional surrounding midfoot and hindfo ot bones which have osteomyelitis is somewhat difficult to be certain of on this examination as the t rauma, dislocation, and Charcot joint will all result in edema and low T1 signal. A dual isotope red blood cell scan could determine the extent of osteomyelitis. 4. Complete tear of the flexor hallicus longus tendon. [facility] SE[facility] Referring Provider Line: [phone] SITE ID: [id number]
[2017-08-21] MEDS: MORPHINE 2 MG/ML SYRINGE IVP PRN ×6 (01:21→23:41)
[2017-08-21] MEDS: SODIUM CHLORIDE FLUSH 0.9% 10 ML SYRINGE IVP SCH ×4 (01:22→23:43)
[2017-08-21 03:32] LABS: VANCOMYCIN,TROUGH 33.1 ug/mL (5.0-15.0)
[2017-08-21] MEDS: VANCOMYCIN INJ 1.75 GM in SODIUM CHLORIDE 0.9% 500 ML IV SCH (03:45)
[2017-08-21 06:11] LABS: BASOPHILS # (AUTO) 0.1 10^3/uL (0.0-0.1); BASOPHILS % (AUTO) 1.1 %; EOSINOPHILS # (AUTO) 0.2 10^3/uL (0.0-0.7); EOSINOPHILS % (AUTO) 2.4 %; HGB - HEMOGLOBIN 9.2 g/dL (14.0-18.0); LYMPHOCYTES # (AUTO) 1.8 10^3/uL (1.5-3.5); LYMPHOCYTES % (AUTO) 21.1 %; MEAN CORPUSCULAR HEMOGLOBIN 29.2 pg (27.0-31.0); MEAN CORPUSCULAR HGB CONC 32.3 g/dL (32.0-36.0); MEAN CORPUSCULAR VOLUME 90.3 fL (80.0-94.0); MEAN PLATELET VOLUME 6.8 fL (7.4-11.4); MONOCYTES # (AUTO) 1.2 10^3/uL (0.0-1.0); MONOCYTES % (AUTO) 14.1 %; NEUTROPHILS # (AUTO) 5.2 10^3/uL (1.5-6.6); NEUTROPHILS % (AUTO) 61.3 %; PLT - PLATELET COUNT 327 10^3/uL (130-450); RED BLOOD COUNT 3.17 10^6/uL (4.70-6.10); RED CELL DISTRIBUTION WIDTH 13.9 % (12.0-15.0); WHITE BLOOD COUNT 8.5 x10^3/uL (4.8-10.8)
[2017-08-21 06:19] LABS: CALCIUM 9.1 mg/dL (8.5-10.3); CREATININE 1.3 mg/dL (0.6-1.2)
[2017-08-21] MEDS: INSULIN ASPART 300 UNIT/3 ML PEN SUBQ SCH ×5 (07:45→21:30)
[2017-08-21] MEDS: POLYETHYLENE GLYCOL 3350 17 GM PACKET PO SCH (08:51)
[2017-08-21] MEDS: SPIRONOLACTONE 25 MG TABLET PO SCH (08:52)
[2017-08-21] MEDS: ASPIRIN EC 81 MG TABLET PO SCH (08:52)
[2017-08-21] MEDS: DOCUSATE SODIUM 250 MG CAPSULE PO SCH (08:52)
[2017-08-21] MEDS: amLODIPine 5 MG TABLET PO SCH (08:52)
[2017-08-21] MEDS: ATORVASTATIN 40 MG TABLET PO SCH (08:52)
[2017-08-21] MEDS: LOSARTAN 50 MG TABLET PO SCH (08:52)
[2017-08-21] MEDS: FAMOTIDINE 20 MG TABLET PO SCH (08:52)
[2017-08-21] MEDS: CARVEDILOL 12.5 MG TABLET PO SCH ×2 (08:52→20:44)
[2017-08-21] MEDS: SACCHAROMYCES BOULARDII 250 MG CAPSULE PO SCH ×2 (08:52→16:51)
[2017-08-21] MEDS: LORATADINE 10 MG TABLET PO SCH (08:52)
[2017-08-21] MEDS: ENOXAPARIN 40 MG/0.4 ML SYRINGE SUBQ SCH (08:53)
[2017-08-21] MEDS: SENNA 8.6 MG TABLET PO SCH ×3 (08:53→23:43)
[2017-08-21] MEDS: oxyCODONE 5 MG TABLET PO PRN ×4 (08:53→21:39)
[2017-08-21] MEDS: diphenhydrAMINE ELIXIR 25 MG/10 ML UDC PO PRN ×2 (09:15→16:45)
[2017-08-21 10:42] LABS: VANCOMYCIN,TROUGH 22.6 ug/mL (5.0-15.0)
[2017-08-21] MEDS ORDERED: VANCOMYCIN INJ 1.75 GM in SODIUM CHLORIDE 0.9% 500 ML IV SCH (11:00)
[2017-08-21] MEDS: VANCOMYCIN INJ 1 GM in SODIUM CHLORIDE 0.9% 500 ML IV SCH ×2 (12:55→23:43)
[2017-08-21] MEDS ORDERED: hydrOXYzine PAMOATE 25 MG CAPSULE PO PRN (14:50)
--- NOTE | 2017-08-21 14:58 | PROVIDER PROGRESS NOTE ---
Assessment/Plan - Problem List (1) Cellulitis of foot, right Assessment/Plan: The MRI shows extent of infection: mid foot has cellulitis, abcsess and osteomyelitis. I spoke to Orthopedics office to have him re-seen, since Dr Randle is now gone. Dr Trotter or Dr Paulino will be taking over pt's case. The pt wants to know if amputation is the only surgical option. I explained that the surgeon and he should discuss details of any surgery. Continue empiric iv antibiotics. (2) Charcot's joint of right foot Assessment/Plan: The imaging shows that the foot is dislocated at mid foot. Awaiting further input from Orthopedics. (3) Insulin dependent diabetes mellitus Assessment/Plan: Glu are running 100's to 200's. Continue POC glu checks and DM diet and Insulin. (4) Venous stasis dermatitis of both lower extremities Assessment/Plan: Stable. (5) Cor pulmonale (chronic) Assessment/Plan: No significant edema of legs. - Current Meds Current Meds: Current Medications Generic Name Dose Route Start Last Admin Trade Name Freq PRN Reason Stop Dose Admin Amlodipine Besylate 5 mg 08/19/17 09:00 08/21/17 08:52 Norvasc PO 5 mg DAILY CATIE Administration Aspirin 81 mg 08/19/17 09:00 08/21/17 08:52 Ecotrin PO 81 mg DAILY CATIE Administration Atorvastatin Calcium 40 mg 08/19/17 09:00 08/21/17 08:52 Lipitor PO 40 mg DAILY CATIE Administration Carvedilol 25 mg 08/18/17 21:00 08/21/17 08:52 Coreg PO 25 mg BID CATIE Administration Diphenhydramine HCl 12.5 mg 08/19/17 13:43 08/21/17 09:15 Benadryl Elixir PO 12.5 mg Q6HR PRN Administration ITCHING Docusate Sodium 250 - 500 mg 08/20/17 10:00 08/21/17 08:52 Colace 250mg Capsule PO 500 mg DAILY CATIE Administration Duloxetine HCl 60 mg 08/18/17 21:00 08/20/17 20:36 Cymbalta PO 60 mg QPM CATIE Administration Famotidine 20 mg 08/19/17 09:00 08/21/17 08:52 Pepcid PO 20 mg DAILY CATIE Administration Gabapentin 1,200 mg 08/18/17 21:00 08/20/17 20:36 Neurontin PO 1,200 mg QPM CATIE Administration Vancomycin HCl 1 gm/ Sodium 500 mls @ 250 mls/hr 08/21/17 12:00 08/21/17 13: 00 Chloride IV 0 mls/hr Q12H [facility] Infusion Insulin Aspart 1 - 9 unit 08/21/17 11:43 08/21/17 11:51 Novolog SUBQ Not Given 0800,1200,1700,2100 [facility] Protocol Insulin Glargine 40 unit 08/20/17 23:00 08/20/17 22:18 Lantus Solostar SUBQ 40 unit QPM CATIE Administration Loratadine 10 mg 08/19/17 09:00 08/21/17 08:52 Claritin PO 10 mg DAILY CATIE Administration Losartan Potassium 50 mg 08/19/17 09:00 08/21/17 08:52 Cozaar PO 50 mg DAILY CATIE Administration Morphine Sulfate 4 mg 08/19/17 20:35 08/21/17 11:36 Morphine IVP 4 mg Q2H PRN Administration Pain 8 to 10 Oxycodone HCl 10 mg 08/19/17 14:53 08/21/17 12:44 Roxicodone PO 10 mg Q4HR PRN Administration PAIN Polyethylene Glycol 17 gm 08/19/17 09:00 08/21/17 08:51 Miralax PO 17 gm DAILY CATIE Administration Saccharomyces Boulardii 250 mg 08/19/17 08:00 08/21/17 08:52 Florastor PO 250 mg BIDWM CATIE Administration Senna 8.6 - 17.2 mg 08/20/17 10:00 08/21/17 08:53 Senokot PO 17.2 mg DAILY CATIE Administration Sodium Chloride 10 ml 08/18/17 20:07 08/20/17 20:35 Normal Saline Flush 0.9% IVP 10 ml PRN PRN Administration NEEDED PER PROVIDER ORDERS Sodium Chloride 10 ml 08/19/17 01:00 08/21/17 08:53 Normal Saline Flush 0.9% IVP Not Given 0100,0900,1700 [facility] Spironolactone 25 mg 08/19/17 09:00 08/21/17 08:52 Aldactone PO 25 mg DAILY CATIE Administration - Lab Result Fish Bone Diagrams: 08/21/17 05:55 08/21/17 05:55 - Additional Planning My Orders: My Active Orders 08/21/17 Urinalysis w/ Micro, Reflex Cult If [UA w/ MICROSCOPIC, CULT IF] [URIN] Urgent 08/21/17 11:43 Insulin Aspart [NovoLOG] 1 - 9 unit SUBQ 0800,1200,1700,2100 08/21/17 14:50 hydrOXYzine PAMOATE [Vistaril] 25 mg PO Q12H PRN 08/22/17 23:30 VANCOMYCIN TROUGH [CHEM] Timed Subjective - Subjective Patient Reports: Other (Urinary frequency, pelvic pain when urinating and small amounts of urine, he told his RN.) Objective Vital Signs: Vital Signs - 24 hr 08/20/17 08/20/17 08/20/17 16:00 20:39 20:51 Temperature 36.5 C Heart Rate 82 Heart Rate [ 77 82 Brachial] Respiratory 18 18 Rate Blood Pressure 108/57 L 133/64 H [Right Brachial artery] O2 Saturation 96 08/20/17 08/21/17 23:55 07:26 Temperature 36.9 C 36.7 C Heart Rate Heart Rate [ 85 80 Brachial] Respiratory 16 16 Rate Blood Pressure 129/65 145/69 H [Right Brachial artery] O2 Saturation 96 96 Oxygen O2 Source Room air I&O (Last 24 Hrs): Intake and Output Totals x24h 08/19/17 08/20/17 08/21/17 23:59 23:59 23:59 Intake Total 4405.000 5343.000 840.833 Output Total 2300 3450 2500 Balance 2105.000 1893.000 -1659.167 General: Alert, Oriented x3 HEENT: Mucous membr. moist/pink Neck: Supple, No JVD Neuro: Non Focal Cardiovascular: No murmurs Respiratory: No respiratory distress Abdomen: Soft, Other (Obese with pannus) Extremities: Other (R foot has 1+ edema and is bandaged. B venous stasis changes of shins.) - Results Results: Laboratory Results WBC 8.5 x10^3/uL (4.8-10.8) 08/21/17 05:55 RBC 3.17 10^6/uL (4.70-6.10) L 08/21/17 05:55 Hgb 9.2 g/dL (14.0-18.0) L 08/21/17 05:55 Hct 28.6 % (42.0-52.0) L 08/21/17 05:55 MCV 90.3 fL (80.0-94.0) 08/21/17 05:55 MCH 29.2 pg (27.0-31.0) 08/21/17 05:55 MCHC 32.3 g/dL (32.0-36.0) 08/21/17 05:55 RDW 13.9 % (12.0-15.0) 08/21/17 05:55 Plt Count 327 10^3/uL (130-450) 08/21/17 05:55 MPV 6.8 fL (7.4-11.4) L 08/21/17 05:55 Neut # 5.2 10^3/uL (1.5-6.6) 08/21/17 05:55 Lymph # 1.8 10^3/uL (1.5-3.5) 08/21/17 05:55 [place] # 1.2 10^3/uL (0.0-1.0) H 08/21/17 05:55 Eos # 0.2 10^3/uL (0.0-0.7) 08/21/17 05:55 Baso # 0.1 10^3/uL (0.0-0.1) 08/21/17 05:55 Absolute Nucleated RBC 0.00 x10^3/uL 08/21/17 05:55 Nucleated RBC % 0.0 /100WBC 08/21/17 05:55 ESR 39 mm/Hr (0-20) H 08/18/17 18:51 Sodium 135 mmol/L (135-145) 08/21/17 05:55 Potassium 5.2 mmol/L (3.5-5.0) H 08/21/17 05:55 Chloride 103 mmol/L (101-111) 08/21/17 05:55 Carbon Dioxide 24 mmol/L (21-32) 08/21/17 05:55 Anion Gap 8.0 (6-13) 08/21/17 05:55 BUN 18 mg/dL (6-20) 08/21/17 05:55 Creatinine 1.3 mg/dL (0.6-1.2) H 08/21/17 05:55 Estimated GFR (MDRD) 54 (>89) L 08/21/17 05:55 Glucose 137 mg/dL (70-100) H 08/21/17 05:55 POC Whole Bld Glucose 167 mg/dL (70 - 100) H 08/21/17 11:26 Glycated Hemoglobin 7.6 % (4.6-6.2) H 08/18/17 18:42 Estim Average Glucose 171 (70-100) H 08/18/17 18:42 Lactic Acid 1.4 mmol/L (0.5-2.2) 08/18/17 18:42 Calcium 9.1 mg/dL (8.5-10.3) 08/21/17 05:55 Iron 19 ug/dL (45-182) L 08/19/17 06:00 TIBC 167 ug/dL (250-450) L 08/19/17 06:00 % Saturation 11 % (20-50) L 08/19/17 06:00 Transferrin 119 mg/dL (180-329) L 08/19/17 06:00 Ferritin 718.9 ng/mL (23.9-336.2) H 08/19/17 06:00 Total Bilirubin 0.6 mg/dL (0.2-1.0) 08/18/17 18:42 AST 26 IU/L (10-42) 08/18/17 18:42 ALT 24 IU/L (10-60) 08/18/17 18:42 Alkaline Phosphatase 132 IU/L (42-121) H 08/18/17 18:42 C-Reactive Protein 19.9 mg/dL (0-1.0) H 08/18/17 18:42 Total Protein 8.3 g/dL (6.7-8.2) H 08/18/17 18:42 Albumin 3.1 g/dL (3.2-5.5) L 08/18/17 18:42 Globulin 5.2 g/dL (2.1-4.2) H 08/18/17 18:42 Albumin/Globulin Ratio 0.6 (1.0-2.2) L 08/18/17 18:42 Lipase 13 U/L (22-51) L 08/18/17 18:42 Vitamin B12 1315 pg/mL (180-914) H 08/19/17 06:00 Folate 14.43 ng/mL (5.90 - >24.8) 08/19/17 06:00 Last Dose Date Not Reportable 08/21/17 10:20 Last Dose Time Not Reportable 08/21/17 10:20 Vancomycin Trough 22.6 ug/mL (5.0-15.0) H 08/21/17 10:20 ABX Reporting Has patient been on IV antibiotics over the past 48 hours?: Yes
[2017-08-21] MEDS: SODIUM CHLORIDE FLUSH 0.9% 10 ML SYRINGE IVP PRN ×2 (17:20→19:51)
[2017-08-21] MEDS ORDERED: MAGNESIUM HYDROXIDE 2,400 MG/30 ML UDC PO ONE (17:38)
[2017-08-21 18:23] LABS: BILIRUBIN,URINE NEGATIVE (NEGATIVE); GLUCOSE, URINE (UA) NEGATIVE (NEGATIVE); KETONES,URINE (UA) NEGATIVE (NEGATIVE); LEUKOCYTE ESTERASE, URINE NEGATIVE (NEGATIVE); NITRITE,URINE NEGATIVE (NEGATIVE); OCCULT BLOOD,URINE NEGATIVE (NEGATIVE); PH,URINE 6.5 PH (5.0-7.5); PROTEIN,URINE TRACE mg/dL (NEGATIVE); UROBILINOGEN,URINE 1 (NORMAL) E.U./dL (NORMAL)
[2017-08-21 18:25] LABS: CLARITY,URINE CLEAR (CLEAR)
[2017-08-21 18:49] LABS: BACTERIA,URINE None Seen /HPF (None Seen); RBC,URINE None Seen /HPF (0-5); SQUAMOUS EPITHELIAL CELL,UR RARE Squamous (<= Few)
[2017-08-21] MEDS: GABAPENTIN 400 MG CAPSULE PO SCH (20:45)
[2017-08-21] MEDS: DULoxetine 30 MG CAPSULE PO SCH (21:26)
[2017-08-21] MEDS: INSULIN GLARGINE 300 UNIT/3 ML PEN SUBQ SCH (21:27)
[2017-08-22] MEDS: oxyCODONE 5 MG TABLET PO PRN ×3 (05:56→17:56)
[2017-08-22] MEDS: SENNA 8.6 MG TABLET PO SCH ×2 (05:56→11:44)
[2017-08-22 06:16] LABS: BASOPHILS # (AUTO) 0.1 10^3/uL (0.0-0.1); BASOPHILS % (AUTO) 0.9 %; CALCIUM 8.9 mg/dL (8.5-10.3); CREATININE 1.4 mg/dL (0.6-1.2); EOSINOPHILS # (AUTO) 0.2 10^3/uL (0.0-0.7); HGB - HEMOGLOBIN 8.3 g/dL (14.0-18.0); LYMPHOCYTES # (AUTO) 1.7 10^3/uL (1.5-3.5); LYMPHOCYTES % (AUTO) 18.9 %; MEAN CORPUSCULAR HEMOGLOBIN 29.2 pg (27.0-31.0); MEAN CORPUSCULAR HGB CONC 32.5 g/dL (32.0-36.0); MEAN CORPUSCULAR VOLUME 89.9 fL (80.0-94.0); MEAN PLATELET VOLUME 6.6 fL (7.4-11.4); MONOCYTES # (AUTO) 1.4 10^3/uL (0.0-1.0); MONOCYTES % (AUTO) 15.4 %; NEUTROPHILS # (AUTO) 5.6 10^3/uL (1.5-6.6); NEUTROPHILS % (AUTO) 62.8 %; PLT - PLATELET COUNT 289 10^3/uL (130-450); RED BLOOD COUNT 2.83 10^6/uL (4.70-6.10); RED CELL DISTRIBUTION WIDTH 13.6 % (12.0-15.0); WHITE BLOOD COUNT 8.9 x10^3/uL (4.8-10.8)
[2017-08-22] MEDS: INSULIN REGULAR HUMAN 100 UNIT/1 ML 10 ML MDV SUBQ SCH ×2 (07:41→11:43)
[2017-08-22] MEDS: POLYETHYLENE GLYCOL 3350 17 GM PACKET PO SCH (07:44)
[2017-08-22] MEDS: DOCUSATE SODIUM 250 MG CAPSULE PO SCH (08:17)
[2017-08-22] MEDS: SACCHAROMYCES BOULARDII 250 MG CAPSULE PO SCH ×2 (08:17→16:53)
[2017-08-22] MEDS: LORATADINE 10 MG TABLET PO SCH (08:18)
[2017-08-22] MEDS: LOSARTAN 50 MG TABLET PO SCH (08:18)
[2017-08-22] MEDS: SPIRONOLACTONE 25 MG TABLET PO SCH (08:18)
[2017-08-22] MEDS: amLODIPine 5 MG TABLET PO SCH (08:18)
[2017-08-22] MEDS: ATORVASTATIN 40 MG TABLET PO SCH (08:18)
[2017-08-22] MEDS: FAMOTIDINE 20 MG TABLET PO SCH (08:18)
[2017-08-22] MEDS: CARVEDILOL 12.5 MG TABLET PO SCH ×2 (08:18→21:53)
[2017-08-22] MEDS: SODIUM CHLORIDE FLUSH 0.9% 10 ML SYRINGE IVP SCH ×2 (08:19→13:57)
[2017-08-22] MEDS: MORPHINE 2 MG/ML SYRINGE IVP PRN ×4 (08:19→21:46)
[2017-08-22] MEDS: ASPIRIN EC 81 MG TABLET PO SCH (08:19)
[2017-08-22] MEDS: DEXTROSE 5%-0.9% NACL 1,000 ML IV SCH ×3 (08:19→15:21)
[2017-08-22] MEDS: diphenhydrAMINE ELIXIR 25 MG/10 ML UDC PO PRN ×2 (10:33→21:48)
[2017-08-22] MEDS ORDERED: BUPIVACAINE 0.5%-EPI 1:200000 PF 30 ML VIAL ONE (10:40)
[2017-08-22] MEDS ORDERED: DEXTROSE 5%-LACTATED RINGERS 1,000 ML IV ONE (11:00)
[2017-08-22] MEDS ORDERED: BUPIVACAINE 0.5%-EPI 1:200000 PF 30 ML VIAL SUBQ ONE (11:22)
[2017-08-22] MEDS ORDERED: ROCURONIUM 50 MG/5 ML VIAL IVP ONE (11:31)
[2017-08-22] MEDS ORDERED: GLYCOPYRROLATE 1 MG/5 ML VIAL IVP ONE (11:31)
[2017-08-22] MEDS ORDERED: LIDOCAINE-MPF 2% 5 ML VIAL IM ONE (11:31)
[2017-08-22] MEDS ORDERED: ONDANSETRON 4 MG/2 ML VIAL IVP ONE (11:31)
[2017-08-22] MEDS ORDERED: ACETAMINOPHEN 1,000 MG/100 ML 100 ML IV ONE (11:31)
[2017-08-22] MEDS ORDERED: NEOSTIGMINE 1 MG/1 ML 10 ML MDV IVP ONE (11:31)
[2017-08-22] MEDS ORDERED: PROPOFOL 200 MG/20 ML VIAL IVP ONE (11:31)
[2017-08-22] MEDS ORDERED: fentaNYL 100 MCG/2 ML VIAL IVP ONE (11:31)
[2017-08-22] MEDS ORDERED: MIDAZOLAM 2 MG/2 ML VIAL IVP ONE (11:31)
[2017-08-22] MEDS ORDERED: SODIUM CHLORIDE 0.9% 1,000 ML IV ONE (11:50)
--- NOTE | 2017-08-22 12:59 | OPERATIVE REPORT ---
Operative Report - General Admit Date: 08/18/17 Procedure Date: 08/22/17 Planned Procedure: right below knee amputation Pre-Op Diagnosis: charcot arthropathy right foot with diabetic abscess/ osteomyletis Procedure Performed: Right BKA Post Op Diagnosis: same - Procedure Note Primary Surgeon: Lora Anesthesia Provider: Luis Taylor Anesthesia Technique: General ET tube Estimated Blood Loss (mL): 60
[2017-08-22] MEDS ORDERED: fentaNYL 100 MCG/2 ML VIAL ONE (13:07)
[2017-08-22] MEDS: VANCOMYCIN INJ 1 GM in SODIUM CHLORIDE 0.9% 250 ML IV SCH (13:56)
[2017-08-22] MEDS: ACETAMINOPHEN 325 MG TABLET PO PRN (14:47)
--- NOTE | 2017-08-22 15:03 | PROVIDER PROGRESS NOTE ---
Assessment/Plan - Problem List (1) Osteomyelitis Qualifiers: Osteomyelitis location: foot Laterality: right Assessment/Plan: Pt is S/P BKA today. Will continue iv antibiotics, await path and cultures of surgical specimen, to adjust antibiotics based on bacteria. He will need a PICC line and 6 weeks of iv antibiotics are planned. (2) Cellulitis of foot, right Assessment/Plan: As in #1. (3) Insulin dependent diabetes mellitus Assessment/Plan: Continue DM diet, glu monitoring and Insulin coverage (4) Venous stasis dermatitis of both lower extremities Assessment/Plan: Stable (5) Cor pulmonale (chronic) Assessment/Plan: Stable - Current Meds Current Meds: Current Medications Generic Name Dose Route Start Last Admin Trade Name Freq PRN Reason Stop Dose Admin Acetaminophen 650 mg 08/18/17 20:07 08/22/17 14:47 Tylenol PO 650 mg Q4HR PRN Administration Pain 1 to 4 Amlodipine Besylate 5 mg 08/19/17 09:00 08/22/17 08:18 Norvasc PO 5 mg DAILY CATIE Administration Aspirin 81 mg 08/19/17 09:00 08/22/17 08:19 Ecotrin PO Not Given DAILY CATIE Atorvastatin Calcium 40 mg 08/19/17 09:00 08/22/17 08:18 Lipitor PO 40 mg DAILY CATIE Administration Carvedilol 25 mg 08/18/17 21:00 08/22/17 08:18 Coreg PO 25 mg BID CATIE Administration Diphenhydramine HCl 12.5 mg 08/19/17 13:43 08/22/17 10:33 Benadryl Elixir PO 12.5 mg Q6HR PRN Administration ITCHING Docusate Sodium 250 - 500 mg 08/20/17 10:00 08/22/17 08:17 Colace 250mg Capsule PO 250 mg DAILY CATIE Administration Duloxetine HCl 60 mg 08/18/17 21:00 08/21/17 21:26 Cymbalta PO 60 mg QPM CATIE Administration Famotidine 20 mg 08/19/17 09:00 08/22/17 08:18 Pepcid PO 20 mg DAILY CATIE Administration Gabapentin 1,200 mg 08/18/17 21:00 08/21/17 20:45 Neurontin PO 1,200 mg QPM CATIE Administration Vancomycin HCl 1 gm/ Sodium 250 mls @ 166.667 mls/hr 08/22/17 12:00 08/22/17 13:56 Chloride IV 166.667 mls/hr Q12H CATIE Administration Dextrose/Sodium Chloride 1,000 mls @ 125 mls/hr 08/22/17 08:00 08/22/17 13:56 D5ns IV 125 mls/hr .Q8H CATIE Administration Insulin Glargine 40 unit 08/20/17 23:00 08/21/17 21:27 Lantus Solostar SUBQ 40 unit QPM CATIE Administration Insulin Human Regular 1 - 9 unit 08/22/17 07:00 08/22/17 11:43 Novolin R SUBQ Not Given Q6HR [facility] Protocol Loratadine 10 mg 08/19/17 09:00 08/22/17 08:18 Claritin PO 10 mg DAILY CATIE Administration Losartan Potassium 50 mg 08/19/17 09:00 08/22/17 08:18 Cozaar PO 50 mg DAILY CATIE Administration Morphine Sulfate 4 mg 08/19/17 20:35 08/22/17 13:56 Morphine IVP 4 mg Q2H PRN Administration Pain 8 to 10 Oxycodone HCl 10 mg 08/19/17 14:53 08/22/17 14:47 Roxicodone PO 10 mg Q4HR PRN Administration PAIN Polyethylene Glycol 17 gm 08/19/17 09:00 08/22/17 07:44 Miralax PO Not Given DAILY [facility] Saccharomyces Boulardii 250 mg 08/19/17 08:00 08/22/17 08:17 Florastor PO 250 mg BIDWM CATIE Administration Sodium Chloride 10 ml 08/18/17 20:07 08/21/17 19:51 Normal Saline Flush 0.9% IVP 10 ml PRN PRN Administration NEEDED PER PROVIDER ORDERS Sodium Chloride 10 ml 08/19/17 01:00 08/22/17 13:57 Normal Saline Flush 0.9% IVP 10 ml 0100,0900,1700 CATIE Administration Spironolactone 25 mg 08/19/17 09:00 08/22/17 08:18 Aldactone PO 25 mg DAILY CATIE Administration - Lab Result Fish Bone Diagrams: 08/22/17 14:20 08/22/17 05:55 - Additional Planning My Orders: My Active Orders 08/21/17 14:50 hydrOXYzine PAMOATE [Vistaril] 25 mg PO Q12H PRN 08/22/17 06:59 Initiate Hypoglycemia Protocol [RC] .protocol 08/22/17 07:00 Insulin Regular Human [NovoLIN R] 1 - 9 unit SUBQ Q6HR 08/22/17 08:00 Dextrose 5%-0.9% NaCl [D5ns] 1,000 ml IV 125 mls/hr 08/22/17 23:30 VANCOMYCIN TROUGH [CHEM] Timed Subjective - Subjective Nursing Reports: Other (Pt had BKA at mid-day today done under general anesthesia with ET tube ventilation. He had witnessed sleep apnea, per Recovery Room report to RN.) Objective Vital Signs: Vital Signs - 24 hr 08/21/17 08/21/17 08/22/17 16:08 23:40 07:29 Temperature 36.6 C 37.1 C 36.8 C Heart Rate [ 78 88 79 Brachial] Respiratory 16 18 14 Rate Blood Pressure 123/66 120/95 H 145/57 H [Right Brachial artery] O2 Saturation 100 95 96 08/22/17 08/22/17 08/22/17 12:40 12:45 12:50 Temperature Heart Rate [ Brachial] Respiratory Rate Blood Pressure [Right Brachial artery] O2 Saturation 95 95 96 08/22/17 08/22/17 08/22/17 12:55 13:05 13:15 Temperature Heart Rate [ Brachial] Respiratory Rate Blood Pressure [Right Brachial artery] O2 Saturation 95 95 95 08/22/17 08/22/17 08/22/17 13:40 13:54 14:31 Temperature 36.2 C L 36.7 C 36.9 C Heart Rate [ 76 77 82 Brachial] Respiratory 18 20 12 Rate Blood Pressure 125/67 125/67 124/93 H [Right Brachial artery] O2 Saturation 97 97 96 Oxygen O2 Source Nasal cannula I&O (Last 24 Hrs): Intake and Output Totals x24h 08/20/17 08/21/17 08/22/17 23:59 23:59 23:59 Intake Total 5343.000 2490.000 1202.083 Output Total 3450 3400 1625 Balance 1893.000 -910.000 -422.917 General: Other (Minimal,ly awake POD #0, but extubated.) HEENT: Mucous membr. moist/pink Neck: Supple Cardiovascular: No murmurs Respiratory: No respiratory distress Abdomen: Other (Obese) Extremities: Other (L leg stump bandaged and no vac.) - Results Results: Laboratory Results WBC 8.9 x10^3/uL (4.8-10.8) 08/22/17 05:55 RBC 2.83 10^6/uL (4.70-6.10) L 08/22/17 05:55 Hgb 8.3 g/dL (14.0-18.0) L 08/22/17 05:55 Hct 24.2 % (42.0-52.0) L 08/22/17 14:20 MCV 89.9 fL (80.0-94.0) 08/22/17 05:55 MCH 29.2 pg (27.0-31.0) 08/22/17 05:55 MCHC 32.5 g/dL (32.0-36.0) 08/22/17 05:55 RDW 13.6 % (12.0-15.0) 08/22/17 05:55 Plt Count 289 10^3/uL (130-450) 08/22/17 05:55 MPV 6.6 fL (7.4-11.4) L 08/22/17 05:55 Neut # 5.6 10^3/uL (1.5-6.6) 08/22/17 05:55 Lymph # 1.7 10^3/uL (1.5-3.5) 08/22/17 05:55 [place] # 1.4 10^3/uL (0.0-1.0) H 08/22/17 05:55 Eos # 0.2 10^3/uL (0.0-0.7) 08/22/17 05:55 Baso # 0.1 10^3/uL (0.0-0.1) 08/22/17 05:55 Absolute Nucleated RBC 0.01 x10^3/uL 08/22/17 05:55 Nucleated RBC % 0.1 /100WBC 08/22/17 05:55 ESR 39 mm/Hr (0-20) H 08/18/17 18:51 Sodium 133 mmol/L (135-145) L 08/22/17 05:55 Potassium 4.6 mmol/L (3.5-5.0) 08/22/17 05:55 Chloride 101 mmol/L (101-111) 08/22/17 05:55 Carbon Dioxide 25 mmol/L (21-32) 08/22/17 05:55 Anion Gap 7.0 (6-13) 08/22/17 05:55 BUN 18 mg/dL (6-20) 08/22/17 05:55 Creatinine 1.4 mg/dL (0.6-1.2) H 08/22/17 05:55 Estimated GFR (MDRD) 50 (>89) L 08/22/17 05:55 Glucose 159 mg/dL (70-100) H 08/22/17 05:55 POC Whole Bld Glucose 176 mg/dL (70 - 100) H 08/22/17 12:51 Glycated Hemoglobin 7.6 % (4.6-6.2) H 08/18/17 18:42 Estim Average Glucose 171 (70-100) H 08/18/17 18:42 Lactic Acid 1.4 mmol/L (0.5-2.2) 08/18/17 18:42 Calcium 8.9 mg/dL (8.5-10.3) 08/22/17 05:55 Iron 19 ug/dL (45-182) L 08/19/17 06:00 TIBC 167 ug/dL (250-450) L 08/19/17 06:00 % Saturation 11 % (20-50) L 08/19/17 06:00 Transferrin 119 mg/dL (180-329) L 08/19/17 06:00 Ferritin 718.9 ng/mL (23.9-336.2) H 08/19/17 06:00 Total Bilirubin 0.6 mg/dL (0.2-1.0) 08/18/17 18:42 AST 26 IU/L (10-42) 08/18/17 18:42 ALT 24 IU/L (10-60) 08/18/17 18:42 Alkaline Phosphatase 132 IU/L (42-121) H 08/18/17 18:42 C-Reactive Protein 19.9 mg/dL (0-1.0) H 08/18/17 18:42 Total Protein 8.3 g/dL (6.7-8.2) H 08/18/17 18:42 Albumin 3.1 g/dL (3.2-5.5) L 08/18/17 18:42 Globulin 5.2 g/dL (2.1-4.2) H 08/18/17 18:42 Albumin/Globulin Ratio 0.6 (1.0-2.2) L 08/18/17 18:42 Lipase 13 U/L (22-51) L 08/18/17 18:42 Vitamin B12 1315 pg/mL (180-914) H 08/19/17 06:00 Folate 14.43 ng/mL (5.90 - >24.8) 08/19/17 06:00 Urine Color YELLOW 08/21/17 18:05 Urine Clarity CLEAR (CLEAR) 08/21/17 18:05 Urine pH 6.5 PH (5.0-7.5) 08/21/17 18:05 Ur Specific [place] 1.020 (1.002-1.030) 08/21/17 18:05 Urine Protein TRACE mg/dL (NEGATIVE) 08/21/17 18:05 Urine Glucose (UA) NEGATIVE mg/dL (NEGATIVE) 08/21/17 18:05 Urine Ketones NEGATIVE mg/dL (NEGATIVE) 08/21/17 18:05 Urine Occult Blood NEGATIVE (NEGATIVE) 08/21/17 18:05 Urine Nitrite NEGATIVE (NEGATIVE) 08/21/17 18:05 Urine Bilirubin NEGATIVE (NEGATIVE) 08/21/17 18:05 Urine Urobilinogen 1 (NORMAL) E.U./dL (NORMAL) 08/21/17 18:05 Ur Leukocyte Esterase NEGATIVE (NEGATIVE) 08/21/17 18:05 Urine RBC None Seen /HPF (0-5) 08/21/17 18:05 Urine WBC 0-3 /HPF (0-3) 08/21/17 18:05 Ur Squamous Epith Cells RARE Squamous (<= Few) 08/21/17 18:05 Urine Bacteria None Seen /HPF (None Seen) 08/21/17 18:05 Urine Culture Comments NOT INDICATED 08/21/17 18:05 Last Dose Date Not Reportable 08/21/17 10:20 Last Dose Time Not Reportable 08/21/17 10:20 Vancomycin Trough 22.6 ug/mL (5.0-15.0) H 08/21/17 10:20 ABX Reporting Has patient been on IV antibiotics over the past 48 hours?: Yes
[2017-08-22] MEDS: SODIUM CHLORIDE FLUSH 0.9% 10 ML SYRINGE IVP PRN ×2 (15:25→16:53)
[2017-08-22] MEDS: HYDROmorphone 2 MG/ML VIAL IVP PRN ×2 (15:25→20:04)
[2017-08-22] MEDS: INSULIN ASPART 300 UNIT/3 ML PEN SUBQ SCH ×2 (17:19→21:59)
[2017-08-22] MEDS: ACETAMINOPHEN 1,000 MG/100 ML 100 ML IV PRN (18:28)
[2017-08-22] MEDS: GABAPENTIN 400 MG CAPSULE PO SCH (21:49)
[2017-08-22] MEDS: DULoxetine 30 MG CAPSULE PO SCH (21:55)
[2017-08-22] MEDS: INSULIN GLARGINE 300 UNIT/3 ML PEN SUBQ SCH (21:57)
[2017-08-23] MEDS: ACETAMINOPHEN 1,000 MG/100 ML 100 ML IV PRN ×3 (00:01→16:03)
[2017-08-23] MEDS: HYDROmorphone 2 MG/ML VIAL IVP PRN ×3 (00:13→11:51)
[2017-08-23] MEDS: VANCOMYCIN INJ 1 GM in SODIUM CHLORIDE 0.9% 250 ML IV SCH ×2 (00:32→17:43)
[2017-08-23] MEDS: SODIUM CHLORIDE FLUSH 0.9% 10 ML SYRINGE IVP SCH ×4 (00:55→21:28)
[2017-08-23] MEDS: DEXTROSE 5%-0.9% NACL 1,000 ML IV SCH (04:06)
[2017-08-23] MEDS: MORPHINE 2 MG/ML SYRINGE IVP PRN ×4 (04:13→23:58)
[2017-08-23 06:21] LABS: BASOPHILS # (AUTO) 0.1 10^3/uL (0.0-0.1); BASOPHILS % (AUTO) 0.6 %; EOSINOPHILS # (AUTO) 0.2 10^3/uL (0.0-0.7); EOSINOPHILS % (AUTO) 1.6 %; LYMPHOCYTES # (AUTO) 1.2 10^3/uL (1.5-3.5); LYMPHOCYTES % (AUTO) 12.3 %; MEAN CORPUSCULAR HEMOGLOBIN 29.2 pg (27.0-31.0); MEAN CORPUSCULAR HGB CONC 32.5 g/dL (32.0-36.0); MEAN CORPUSCULAR VOLUME 89.8 fL (80.0-94.0); MEAN PLATELET VOLUME 6.7 fL (7.4-11.4); MONOCYTES # (AUTO) 1.1 10^3/uL (0.0-1.0); MONOCYTES % (AUTO) 11.7 %; NEUTROPHILS # (AUTO) 7.1 10^3/uL (1.5-6.6); NEUTROPHILS % (AUTO) 73.8 %; PLT - PLATELET COUNT 284 10^3/uL (130-450); RED BLOOD COUNT 2.74 10^6/uL (4.70-6.10); RED CELL DISTRIBUTION WIDTH 13.6 % (12.0-15.0); WHITE BLOOD COUNT 9.6 x10^3/uL (4.8-10.8)
[2017-08-23 06:23] LABS: CALCIUM 8.5 mg/dL (8.5-10.3); CREATININE 1.2 mg/dL (0.6-1.2)
[2017-08-23] MEDS: INSULIN ASPART 300 UNIT/3 ML PEN SUBQ SCH ×4 (07:51→20:50)
[2017-08-23] MEDS: DOCUSATE SODIUM 250 MG CAPSULE PO SCH (08:50)
[2017-08-23] MEDS: amLODIPine 5 MG TABLET PO SCH (08:50)
[2017-08-23] MEDS: SACCHAROMYCES BOULARDII 250 MG CAPSULE PO SCH ×2 (08:50→17:02)
[2017-08-23] MEDS: ASPIRIN EC 81 MG TABLET PO SCH (08:50)
[2017-08-23] MEDS: CARVEDILOL 12.5 MG TABLET PO SCH ×2 (08:50→20:49)
[2017-08-23] MEDS: FAMOTIDINE 20 MG TABLET PO SCH (08:50)
[2017-08-23] MEDS: ATORVASTATIN 40 MG TABLET PO SCH (08:50)
[2017-08-23] MEDS: SPIRONOLACTONE 25 MG TABLET PO SCH (08:50)
[2017-08-23] MEDS: LOSARTAN 50 MG TABLET PO SCH (08:51)
[2017-08-23] MEDS: LORATADINE 10 MG TABLET PO SCH (08:51)
[2017-08-23] MEDS: POLYETHYLENE GLYCOL 3350 17 GM PACKET PO SCH (08:51)
--- NOTE | 2017-08-23 09:48 | PROVIDER PROGRESS NOTE ---
Subjective - General Admit Date: 08/18/17 Procedure Date: 08/22/17 Post Op Days: 1 Procedure Performed: right BKA - Review of Systems Wound/Incisions: positive: Dressing dry and intact Genitourinary: positive: Retention Musculoskeletal: positive: Leg pain Objective - Patient Data Reviewed Vital Signs: Yes Vital Signs: Vital Signs x48h Temp Pulse Resp BP Pulse Ox 08/23/17 08:38 36.9 C 97 12 142/72 H 97 08/23/17 04:51 36.7 C 96 16 117/65 92 Intake & Output: Intake and Output Totals x24h 08/21/17 08/22/17 08/23/17 23:59 23:59 23:59 Intake Total 2490.000 2529.166 1472.917 Output Total 3400 3325 2400 Balance -910.000 -795.834 -927.083 - Lab Results Lab Results: 08/23/17 06:05 08/23/17 06:05 Other Lab Results: Lab Results x24hrs 08/23/17 08/23/17 08/23/17 Range/Units 07:38 06:05 06:05 WBC 9.6 (4.8-10.8) x10^3/uL RBC 2.74 L (4.70-6.10) 10^6/uL Hgb 8.0 L (14.0-18.0) g/dL Hct 24.6 L (42.0-52.0) % MCV 89.8 (80.0-94.0) fL MCH 29.2 (27.0-31.0) pg MCHC 32.5 (32.0-36.0) g/dL RDW 13.6 (12.0-15.0) % Plt Count 284 (130-450) 10^3/uL MPV 6.7 L (7.4-11.4) fL Neut # 7.1 H (1.5-6.6) 10^3/uL Lymph # 1.2 L (1.5-3.5) 10^3/uL [place] # 1.1 H (0.0-1.0) 10^3/uL Eos # 0.2 (0.0-0.7) 10^3/uL Baso # 0.1 (0.0-0.1) 10^3/uL Absolute Nucleated RBC 0.00 x10^3/uL Nucleated RBC % 0.0 /100WBC Sodium 137 (135-145) mmol/L Potassium 4.7 (3.5-5.0) mmol/L Chloride 107 (101-111) mmol/L Carbon Dioxide 24 (21-32) mmol/L Anion Gap 6.0 (6-13) BUN 16 (6-20) mg/dL Creatinine 1.2 (0.6-1.2) mg/dL Estimated GFR (MDRD) 59 L (>89) Glucose 177 H (70-100) mg/dL POC Whole Bld Glucose 170 H (70 - 100) mg/dL Calcium 8.5 (8.5-10.3) mg/dL 08/22/17 08/22/17 08/22/17 Range/Units 20:35 16:49 14:20 WBC (4.8-10.8) x10^3/uL RBC (4.70-6.10) 10^6/uL Hgb (14.0-18.0) g/dL Hct 24.2 L (42.0-52.0) % MCV (80.0-94.0) fL MCH (27.0-31.0) pg MCHC (32.0-36.0) g/dL RDW (12.0-15.0) % Plt Count (130-450) 10^3/uL MPV (7.4-11.4) fL Neut # (1.5-6.6) 10^3/uL Lymph # (1.5-3.5) 10^3/uL [place] # (0.0-1.0) 10^3/uL Eos # (0.0-0.7) 10^3/uL Baso # (0.0-0.1) 10^3/uL Absolute Nucleated RBC x10^3/uL Nucleated RBC % /100WBC Sodium (135-145) mmol/L Potassium (3.5-5.0) mmol/L Chloride (101-111) mmol/L Carbon Dioxide (21-32) mmol/L Anion Gap (6-13) BUN (6-20) mg/dL Creatinine (0.6-1.2) mg/dL Estimated GFR (MDRD) (>89) Glucose (70-100) mg/dL POC Whole Bld Glucose 164 H 140 H (70 - 100) mg/dL Calcium (8.5-10.3) mg/dL 08/22/17 Range/Units 12:51 WBC (4.8-10.8) x10^3/uL RBC (4.70-6.10) 10^6/uL Hgb (14.0-18.0) g/dL Hct (42.0-52.0) % MCV (80.0-94.0) fL MCH (27.0-31.0) pg MCHC (32.0-36.0) g/dL RDW (12.0-15.0) % Plt Count (130-450) 10^3/uL MPV (7.4-11.4) fL Neut # (1.5-6.6) 10^3/uL Lymph # (1.5-3.5) 10^3/uL [place] # (0.0-1.0) 10^3/uL Eos # (0.0-0.7) 10^3/uL Baso # (0.0-0.1) 10^3/uL Absolute Nucleated RBC x10^3/uL Nucleated RBC % /100WBC Sodium (135-145) mmol/L Potassium (3.5-5.0) mmol/L Chloride (101-111) mmol/L Carbon Dioxide (21-32) mmol/L Anion Gap (6-13) BUN (6-20) mg/dL Creatinine (0.6-1.2) mg/dL Estimated GFR (MDRD) (>89) Glucose (70-100) mg/dL POC Whole Bld Glucose 176 H (70 - 100) mg/dL Calcium (8.5-10.3) mg/dL - Current Medications Current Medications: Current Medications Generic Name Dose Route Start Last Admin Trade Name Freq PRN Reason Stop Dose Admin Acetaminophen 650 mg 08/18/17 20:07 08/22/17 14:47 Tylenol PO 650 mg Q4HR PRN Administration Pain 1 to 4 Amlodipine Besylate 5 mg 08/19/17 09:00 08/23/17 08:50 Norvasc PO 5 mg DAILY CATIE Administration Aspirin 81 mg 08/19/17 09:00 08/23/17 08:50 Ecotrin PO 81 mg DAILY CATIE Administration Atorvastatin Calcium 40 mg 08/19/17 09:00 08/23/17 08:50 Lipitor PO 40 mg DAILY CATIE Administration Carvedilol 25 mg 08/18/17 21:00 08/23/17 08:50 Coreg PO 25 mg BID CATIE Administration Diphenhydramine HCl 12.5 mg 08/19/17 13:43 08/22/17 21:48 Benadryl Elixir PO 12.5 mg Q6HR PRN Administration ITCHING Docusate Sodium 250 - 500 mg 08/20/17 10:00 08/23/17 08:50 Colace 250mg Capsule PO 500 mg DAILY CATIE Administration Duloxetine HCl 60 mg 08/18/17 21:00 08/22/17 21:55 Cymbalta PO 60 mg QPM CATIE Administration Famotidine 20 mg 08/19/17 09:00 08/23/17 08:50 Pepcid PO 20 mg DAILY CATIE Administration Gabapentin 1,200 mg 08/18/17 21:00 08/22/17 21:49 Neurontin PO 1,200 mg QPM CATIE Administration Hydromorphone HCl 2 mg 08/22/17 15:15 08/23/17 07:51 Dilaudid (Vial) IVP 2 mg Q4H PRN Administration Severe Pain Vancomycin HCl 1 gm/ Sodium 250 mls @ 166.667 mls/hr 08/22/17 12:00 08/23/17 02:02 Chloride IV Infused Q12H CATIE Infusion Acetaminophen 100 mls @ 400 mls/hr 08/22/17 18:17 08/23/17 08:15 Ofirmev IV Infused Q6HR PRN Infusion PAIN Insulin Aspart 1 - 9 unit 08/22/17 17:00 08/23/17 07:51 Novolog SUBQ 1 unit 0800,1200,1700,2100 CATIE Administration Protocol Insulin Glargine 40 unit 08/20/17 23:00 08/22/17 21:57 Lantus Solostar SUBQ 40 unit QPM CATIE Administration Loratadine 10 mg 08/19/17 09:00 08/23/17 08:51 Claritin PO 10 mg DAILY CATIE Administration Losartan Potassium 50 mg 08/19/17 09:00 08/23/17 08:51 Cozaar PO 50 mg DAILY CATIE Administration Morphine Sulfate 4 mg 08/19/17 20:35 08/23/17 04:13 Morphine IVP 4 mg Q2H PRN Administration Pain 8 to 10 Oxycodone HCl 10 mg 08/19/17 14:53 08/22/17 17:56 Roxicodone PO 10 mg Q4HR PRN Administration PAIN Polyethylene Glycol 17 gm 08/19/17 09:00 08/23/17 08:51 Miralax PO 17 gm DAILY CATIE Administration Saccharomyces Boulardii 250 mg 08/19/17 08:00 08/23/17 08:50 Florastor PO 250 mg BIDWM CATIE Administration Sodium Chloride 10 ml 08/18/17 20:07 08/22/17 16:53 Normal Saline Flush 0.9% IVP 10 ml PRN PRN Administration NEEDED PER PROVIDER ORDERS Sodium Chloride 10 ml 08/19/17 01:00 08/23/17 07:52 Normal Saline Flush 0.9% IVP 10 ml 0100,0900,1700 CATIE Administration Spironolactone 25 mg 08/19/17 09:00 08/23/17 08:50 Aldactone PO 25 mg DAILY CATIE Administration - Physical Exam Wound/Incisions: positive: Dressing dry and intact General Appearance: positive: No acute distress Extremities: positive: Other (dressing intact, clean and dry. Pt. has some pain but not severe.) Neurologic/Psychiatric: positive: Oriented x3 Impression/Plan - Problem List Problem List: S/P right BKA\ Healing well. PLan to have patient helped into chair, and mobilize. Will suggest [facility] placement for a period of rehab. Hold anticoagulation for another 1-2 days due to bleeding risk.
[2017-08-23] MEDS: oxyCODONE 5 MG TABLET PO PRN ×4 (09:57→23:58)
[2017-08-23] MEDS: SODIUM CHLORIDE FLUSH 0.9% 10 ML SYRINGE IVP PRN ×5 (09:58→23:59)
--- NOTE | 2017-08-23 10:53 | OPERATIVE REPORT ---
DATE OF SERVICE: 08/18/2017 Physician: Aly Paulino MD PREOPERATIVE DIAGNOSIS: Right lower extremity foot and ankle Charcot arthropathy with diabetic ulceration, abscess, and osteomyelitis. POSTOPERATIVE DIAGNOSIS: Right lower extremity foot and ankle Charcot arthropathy with diabetic ulceration, abscess, and osteomyelitis. PROCEDURE: Right below-knee amputation. OPERATING SURGEON: Aly Paulino M.D. ANESTHESIA: General, Kelsey Taylor. INDICATIONS FOR SURGERY: The patient is a 72-year-old male, who has longstanding diabetes and also longstanding Charcot arthropathy of his right foot and ankle, who has gone on to develop an infected abscess on the deformed plantar aspect of his swollen and enlarged foot. This has been shown by MRI to have osteomyelitis in the area of Charcot arthropathy. After discussion with the patient about the findings, BK amputation was advised, and the patient gave consent to proceed. DESCRIPTION OF OPERATIVE PROCEDURE: The patient was taken to the operating room. He was given a general anesthetic. He was supine on the OR table. A well-padded tourniquet was placed high on his right thigh. His residual limb had been surgically marked and was prepped and draped in standard fashion. The surgical timeout was undertaken, after which a marking pen was used to define the area of amputation with planning for a 15 cm long BK tibial stump. The marking was placed on the tibia with an 18-gauge needle at the 15 cm indira. Skin flaps were designed around this indira to have a long posterior flap for good vascularity. The incision was made with a #10 blade directly down from the tibial crest, across the front of the tibia directly down to bone, and through the anterolateral compartment down to bone to the fibula. Once the tibia and fibula were exposed, periosteum was stripped around the area to expose the prior marking on bone to identify the planned area of tibial transection, and this was undertaken with a saw and the edges trimmed and smoothed. The fibula was cut about 2 cm higher than the tibial side and also smoothed. This allowed the limb to be flexed through the amputation site, which allowed insertion of an amputation knife, and the posterior tissues were then transected with the aid of the amputation knife, essentially creating a fillet of the posterior gastroc muscle and preserving its fascia. This flap was then contoured with the help of the amputation knife and the scalpel and scissors. Once it was felt appropriately shaped, and the closure was without tension, attention was drawn to cauterizing minor bleeders and tying off the major vessels, and transecting the nerves placed under traction beginning with sural nerve progressing to tibial nerve. The tibial nerve and peroneal nerve were drawn down and transected sharply. The peroneal bundle of vessels and the posterior tibial artery and venae comitantes were tied off both with silk ties and with stick ties. Then the tourniquet was deflated, and minor corrections were made with further ties and cautery to control the area and make it a dry field. After this, the area was flushed with saline, and the posterior flap was advanced over the end of the amputation site and closed with the gastroc fascia to the anterior periosteum and deep tissue on the anterior tibia. This was done in a manner that gathered the dog ears on each side and was done without tension, utilizing 0 Vicryl and 2-0 Vicryl. Following this, 2-0 Prolene was used in an interrupted fashion, closing the residual tissue to give a very nice appearance to the end of the amputation. Xeroform gauze was placed across the wound, and a bulky compressive dressing was applied, including fluffs, Kerlix rolls, cast padding, supportive plaster splints, and further cast plate padding and an Greg wrap. Once the splint had hardened, the patient was transported onto a gurney and taken to the recovery room in stable condition. ESTIMATED BLOOD LOSS: Approximately 60 mL. COMPLICATIONS: None. COUNTS: Sponge and needle counts were correct. TOURNIQUET TIME: About 35 minutes at 350 mmHg. TD: 08/22/2017 13:20
[2017-08-23] MEDS: diphenhydrAMINE ELIXIR 25 MG/10 ML UDC PO PRN (11:53)
[2017-08-23 12:06] LABS: VANCOMYCIN,TROUGH 22.2 ug/mL (5.0-15.0)
--- NOTE | 2017-08-23 12:52 | PROVIDER PROGRESS NOTE ---
Assessment/Plan - Problem List (1) Osteomyelitis Qualifiers: Osteomyelitis location: foot Laterality: right Assessment/Plan: Pt is POD #1 of R BKA. Will change to po antibiotics. No 6 weeks iv antibiotics needed because he had the entire infected area removed with a wide margin, per Dr Paulino. Begin OOB to chair and PT when OK with Orthopedist. (2) Insulin dependent diabetes mellitus Assessment/Plan: Stable on diet and Insulin with glu monitoring (3) Venous stasis dermatitis of both lower extremities Assessment/Plan: Stable (4) Cor pulmonale (chronic) Assessment/Plan: Stable (5) Anemia Qualifiers: Anemia type: unspecified type Qualified Code(s): D64.9 - Anemia, unspecified Assessment/Plan: Will check Iron levels and B12, folate and replace if needed. - Current Meds Current Meds: Current Medications Generic Name Dose Route Start Last Admin Trade Name Freq PRN Reason Stop Dose Admin Acetaminophen 650 mg 08/18/17 20:07 08/22/17 14:47 Tylenol PO 650 mg Q4HR PRN Administration Pain 1 to 4 Amlodipine Besylate 5 mg 08/19/17 09:00 08/23/17 08:50 Norvasc PO 5 mg DAILY CATIE Administration Aspirin 81 mg 08/19/17 09:00 08/23/17 08:50 Ecotrin PO 81 mg DAILY CATIE Administration Atorvastatin Calcium 40 mg 08/19/17 09:00 08/23/17 08:50 Lipitor PO 40 mg DAILY CATIE Administration Carvedilol 25 mg 08/18/17 21:00 08/23/17 08:50 Coreg PO 25 mg BID CATIE Administration Diphenhydramine HCl 12.5 mg 08/19/17 13:43 08/23/17 11:53 Benadryl Elixir PO 12.5 mg Q6HR PRN Administration ITCHING Docusate Sodium 250 - 500 mg 08/20/17 10:00 08/23/17 08:50 Colace 250mg Capsule PO 500 mg DAILY CATIE Administration Duloxetine HCl 60 mg 08/18/17 21:00 08/22/17 21:55 Cymbalta PO 60 mg QPM CATIE Administration Famotidine 20 mg 08/19/17 09:00 08/23/17 08:50 Pepcid PO 20 mg DAILY CATIE Administration Gabapentin 1,200 mg 08/18/17 21:00 08/22/17 21:49 Neurontin PO 1,200 mg QPM CATIE Administration Hydromorphone HCl 2 mg 08/22/17 15:15 08/23/17 11:51 Dilaudid (Vial) IVP 2 mg Q4H PRN Administration Severe Pain Acetaminophen 100 mls @ 400 mls/hr 08/22/17 18:17 08/23/17 08:15 Ofirmev IV Infused Q6HR PRN Infusion PAIN Insulin Aspart 1 - 9 unit 08/22/17 17:00 08/23/17 11:52 Novolog SUBQ 3 unit 0800,1200,1700,2100 CATIE Administration Protocol Insulin Glargine 40 unit 08/20/17 23:00 08/22/17 21:57 Lantus Solostar SUBQ 40 unit QPM CATIE Administration Loratadine 10 mg 08/19/17 09:00 08/23/17 08:51 Claritin PO 10 mg DAILY CATIE Administration Losartan Potassium 50 mg 08/19/17 09:00 08/23/17 08:51 Cozaar PO 50 mg DAILY CATIE Administration Morphine Sulfate 4 mg 08/19/17 20:35 08/23/17 04:13 Morphine IVP 4 mg Q2H PRN Administration Pain 8 to 10 Oxycodone HCl 10 mg 08/19/17 14:53 08/23/17 09:57 Roxicodone PO 10 mg Q4HR PRN Administration PAIN Polyethylene Glycol 17 gm 08/19/17 09:00 08/23/17 08:51 Miralax PO 17 gm DAILY CATIE Administration Saccharomyces Boulardii 250 mg 08/19/17 08:00 08/23/17 08:50 Florastor PO 250 mg BIDWM CATIE Administration Sodium Chloride 10 ml 08/18/17 20:07 08/23/17 11:52 Normal Saline Flush 0.9% IVP 10 ml PRN PRN Administration NEEDED PER PROVIDER ORDERS Sodium Chloride 10 ml 08/19/17 01:00 08/23/17 07:52 Normal Saline Flush 0.9% IVP 10 ml 0100,0900,1700 CATIE Administration Spironolactone 25 mg 08/19/17 09:00 08/23/17 08:50 Aldactone PO 25 mg DAILY CATIE Administration - Lab Result Fish Bone Diagrams: 08/23/17 06:05 08/23/17 06:05 - Additional Planning My Orders: My Active Orders 08/22/17 15:15 HYDROmorphone (VIAL) [Dilaudid (Vial)] 2 mg IVP Q4H PRN 08/22/17 17:00 Insulin Aspart [NovoLOG] 1 - 9 unit SUBQ 0800,1200,1700,2100 08/22/17 18:17 Acetaminophen 1,000 mg/100 ml [Ofirmev] 100 ml IV Q6HR 08/23/17 08:48 PICC Line Insert [RC] .ONCE Subjective - Subjective Patient Reports: Feeling Better Nursing Reports: Other (Pt needed around the clock pain meds since returning from the OR yesterday afternoon.) Objective Vital Signs: Vital Signs - 24 hr 08/22/17 08/22/17 08/22/17 12:50 12:55 13:05 Temperature Heart Rate Heart Rate [ Brachial] Respiratory Rate Blood Pressure [Right Brachial artery] O2 Saturation 96 95 95 08/22/17 08/22/17 08/22/17 13:15 13:40 13:54 Temperature 36.2 C L 36.7 C Heart Rate Heart Rate [ 76 77 Brachial] Respiratory 18 20 Rate Blood Pressure 125/67 125/67 [Right Brachial artery] O2 Saturation 95 97 97 08/22/17 08/22/17 08/22/17 14:31 15:31 17:57 Temperature 36.9 C 36.3 C L 36.2 C L Heart Rate Heart Rate [ 82 82 89 Brachial] Respiratory 12 16 16 Rate Blood Pressure 124/93 H 123/45 L 141/83 H [Right Brachial artery] O2 Saturation 96 97 97 08/22/17 08/22/17 08/23/17 20:41 23:34 04:51 Temperature 36.2 C L 36.2 C L 36.7 C Heart Rate Heart Rate [ 86 89 96 Brachial] Respiratory 20 18 16 Rate Blood Pressure 136/76 H 128/67 117/65 [Right Brachial artery] O2 Saturation 97 90 L 92 08/23/17 08/23/17 08:38 11:08 Temperature 36.9 C Heart Rate 76 Heart Rate [ 97 Brachial] Respiratory 12 16 Rate Blood Pressure 142/72 H [Right Brachial artery] O2 Saturation 97 Oxygen O2 Source Room air I&O (Last 24 Hrs): Intake and Output Totals x24h 08/21/17 08/22/17 08/23/17 23:59 23:59 23:59 Intake Total 2490.000 2529.166 1592.917 Output Total 3400 3325 2700 Balance -910.000 -795.834 -1107.083 General: Other (Lethargic (just got iv Dilaudid per RN, [place])) HEENT: Mucous membr. moist/pink Neck: Supple, No JVD Cardiovascular: Regular rate Respiratory: No respiratory distress Abdomen: Other (Obese) Extremities: Other (R BKA bandaged) - Results Results: Laboratory Results WBC 9.6 x10^3/uL (4.8-10.8) 08/23/17 06:05 RBC 2.74 10^6/uL (4.70-6.10) L 08/23/17 06:05 Hgb 8.0 g/dL (14.0-18.0) L 08/23/17 06:05 Hct 24.6 % (42.0-52.0) L 08/23/17 06:05 MCV 89.8 fL (80.0-94.0) 08/23/17 06:05 MCH 29.2 pg (27.0-31.0) 08/23/17 06:05 MCHC 32.5 g/dL (32.0-36.0) 08/23/17 06:05 RDW 13.6 % (12.0-15.0) 08/23/17 06:05 Plt Count 284 10^3/uL (130-450) 08/23/17 06:05 MPV 6.7 fL (7.4-11.4) L 08/23/17 06:05 Neut # 7.1 10^3/uL (1.5-6.6) H 08/23/17 06:05 Lymph # 1.2 10^3/uL (1.5-3.5) L 08/23/17 06:05 Emmet # 1.1 10^3/uL (0.0-1.0) H 08/23/17 06:05 Eos # 0.2 10^3/uL (0.0-0.7) 08/23/17 06:05 Baso # 0.1 10^3/uL (0.0-0.1) 08/23/17 06:05 Absolute Nucleated RBC 0.00 x10^3/uL 08/23/17 06:05 Nucleated RBC % 0.0 /100WBC 08/23/17 06:05 ESR 39 mm/Hr (0-20) H 08/18/17 18:51 Sodium 137 mmol/L (135-145) 08/23/17 06:05 Potassium 4.7 mmol/L (3.5-5.0) 08/23/17 06:05 Chloride 107 mmol/L (101-111) 08/23/17 06:05 Carbon Dioxide 24 mmol/L (21-32) 08/23/17 06:05 Anion Gap 6.0 (6-13) 08/23/17 06:05 BUN 16 mg/dL (6-20) 08/23/17 06:05 Creatinine 1.2 mg/dL (0.6-1.2) 08/23/17 06:05 Estimated GFR (MDRD) 59 (>89) L 08/23/17 06:05 Glucose 177 mg/dL (70-100) H 08/23/17 06:05 POC Whole Bld Glucose 184 mg/dL (70 - 100) H 08/23/17 11:42 Glycated Hemoglobin 7.6 % (4.6-6.2) H 08/18/17 18:42 Estim Average Glucose 171 (70-100) H 08/18/17 18:42 Lactic Acid 1.4 mmol/L (0.5-2.2) 08/18/17 18:42 Calcium 8.5 mg/dL (8.5-10.3) 08/23/17 06:05 Iron 19 ug/dL (45-182) L 08/19/17 06:00 TIBC 167 ug/dL (250-450) L 08/19/17 06:00 % Saturation 11 % (20-50) L 08/19/17 06:00 Transferrin 119 mg/dL (180-329) L 08/19/17 06:00 Ferritin 718.9 ng/mL (23.9-336.2) H 08/19/17 06:00 Total Bilirubin 0.6 mg/dL (0.2-1.0) 08/18/17 18:42 AST 26 IU/L (10-42) 08/18/17 18:42 ALT 24 IU/L (10-60) 08/18/17 18:42 Alkaline Phosphatase 132 IU/L (42-121) H 08/18/17 18:42 C-Reactive Protein 19.9 mg/dL (0-1.0) H 08/18/17 18:42 Total Protein 8.3 g/dL (6.7-8.2) H 08/18/17 18:42 Albumin 3.1 g/dL (3.2-5.5) L 08/18/17 18:42 Globulin 5.2 g/dL (2.1-4.2) H 08/18/17 18:42 Albumin/Globulin Ratio 0.6 (1.0-2.2) L 08/18/17 18:42 Lipase 13 U/L (22-51) L 08/18/17 18:42 Vitamin B12 1315 pg/mL (180-914) H 08/19/17 06:00 Folate 14.43 ng/mL (5.90 - >24.8) 08/19/17 06:00 Urine Color YELLOW 08/21/17 18:05 Urine Clarity CLEAR (CLEAR) 08/21/17 18:05 Urine pH 6.5 PH (5.0-7.5) 08/21/17 18:05 Ur Specific [place] 1.020 (1.002-1.030) 08/21/17 18:05 Urine Protein TRACE mg/dL (NEGATIVE) 08/21/17 18:05 Urine Glucose (UA) NEGATIVE mg/dL (NEGATIVE) 08/21/17 18:05 Urine Ketones NEGATIVE mg/dL (NEGATIVE) 08/21/17 18:05 Urine Occult Blood NEGATIVE (NEGATIVE) 08/21/17 18:05 Urine Nitrite NEGATIVE (NEGATIVE) 08/21/17 18:05 Urine Bilirubin NEGATIVE (NEGATIVE) 08/21/17 18:05 Urine Urobilinogen 1 (NORMAL) E.U./dL (NORMAL) 08/21/17 18:05 Ur Leukocyte Esterase NEGATIVE (NEGATIVE) 08/21/17 18:05 Urine RBC None Seen /HPF (0-5) 08/21/17 18:05 Urine WBC 0-3 /HPF (0-3) 08/21/17 18:05 Ur Squamous Epith Cells RARE Squamous (<= Few) 08/21/17 18:05 Urine Bacteria None Seen /HPF (None Seen) 08/21/17 18:05 Urine Culture Comments NOT INDICATED 08/21/17 18:05 Last Dose Date 08/23/17 08/23/17 11:40 Last Dose Time 02:02 08/23/17 11:40 Vancomycin Trough 22.2 ug/mL (5.0-15.0) H 08/23/17 11:40 ABX Reporting Has patient been on IV antibiotics over the past 48 hours?: Yes
[2017-08-23] MEDS ORDERED: BISACODYL 10 MG SUPP PR ONE (16:50)
[2017-08-23] MEDS: GABAPENTIN 400 MG CAPSULE PO SCH (20:49)
[2017-08-23] MEDS: DULoxetine 30 MG CAPSULE PO SCH (20:49)
[2017-08-23] MEDS: INSULIN GLARGINE 300 UNIT/3 ML PEN SUBQ SCH (20:52)
[2017-08-24] MEDS: MORPHINE 2 MG/ML SYRINGE IVP PRN ×3 (04:39→16:12)
[2017-08-24] MEDS: oxyCODONE 5 MG TABLET PO PRN ×5 (04:39→23:52)
[2017-08-24 06:40] LABS: BASOPHILS # (AUTO) 0.1 10^3/uL (0.0-0.1); BASOPHILS % (AUTO) 0.8 %; EOSINOPHILS # (AUTO) 0.2 10^3/uL (0.0-0.7); EOSINOPHILS % (AUTO) 2.1 %; HGB - HEMOGLOBIN 7.3 g/dL (14.0-18.0); LYMPHOCYTES # (AUTO) 1.4 10^3/uL (1.5-3.5); LYMPHOCYTES % (AUTO) 16.4 %; MEAN CORPUSCULAR HEMOGLOBIN 29.6 pg (27.0-31.0); MEAN CORPUSCULAR HGB CONC 32.7 g/dL (32.0-36.0); MEAN CORPUSCULAR VOLUME 90.3 fL (80.0-94.0); MEAN PLATELET VOLUME 6.2 fL (7.4-11.4); MONOCYTES # (AUTO) 1.1 10^3/uL (0.0-1.0); MONOCYTES % (AUTO) 13.3 %; NEUTROPHILS # (AUTO) 5.7 10^3/uL (1.5-6.6); NEUTROPHILS % (AUTO) 67.4 %; PLT - PLATELET COUNT 251 10^3/uL (130-450); RED BLOOD COUNT 2.49 10^6/uL (4.70-6.10); RED CELL DISTRIBUTION WIDTH 13.6 % (12.0-15.0); WHITE BLOOD COUNT 8.5 x10^3/uL (4.8-10.8)
[2017-08-24 07:20] LABS: CALCIUM 8.2 mg/dL (8.5-10.3); CREATININE 1.1 mg/dL (0.6-1.2)
[2017-08-24] MEDS: INSULIN ASPART 300 UNIT/3 ML PEN SUBQ SCH ×4 (09:04→21:18)
[2017-08-24] MEDS: DOCUSATE SODIUM 250 MG CAPSULE PO SCH (09:05)
[2017-08-24] MEDS: FAMOTIDINE 20 MG TABLET PO SCH (09:06)
[2017-08-24] MEDS: SENNA 8.6 MG TABLET PO SCH (09:06)
[2017-08-24] MEDS: SACCHAROMYCES BOULARDII 250 MG CAPSULE PO SCH ×2 (09:09→17:41)
[2017-08-24] MEDS: CARVEDILOL 12.5 MG TABLET PO SCH ×2 (09:10→20:30)
[2017-08-24] MEDS: ASPIRIN EC 81 MG TABLET PO SCH (09:11)
[2017-08-24] MEDS: ATORVASTATIN 40 MG TABLET PO SCH (09:13)
[2017-08-24] MEDS: amLODIPine 5 MG TABLET PO SCH (09:13)
[2017-08-24] MEDS: LOSARTAN 50 MG TABLET PO SCH (09:13)
[2017-08-24] MEDS: LORATADINE 10 MG TABLET PO SCH (09:13)
[2017-08-24] MEDS: SODIUM CHLORIDE FLUSH 0.9% 10 ML SYRINGE IVP SCH ×3 (09:15→23:53)
--- NOTE | 2017-08-24 09:16 | PROVIDER PROGRESS NOTE ---
Subjective - General Admit Date: 08/18/17 Procedure Date: 08/22/17 Post Op Days: 2 Procedure Performed: right BKA - Review of Systems Wound/Incisions: positive: Healing well, Dressing dry and intact Genitourinary: positive: Retention Musculoskeletal: positive: Leg pain Objective - Patient Data Reviewed Vital Signs: Yes Vital Signs: Vital Signs x48h Temp Pulse Resp BP Pulse Ox 08/24/17 07:22 36.6 C 85 16 129/64 95 08/24/17 04:30 36.6 C 82 18 127/65 99 Intake & Output: Intake and Output Totals x24h 08/22/17 08/23/17 08/24/17 23:59 23:59 23:59 Intake Total 2529.166 2892.917 640 Output Total 3325 2700 1800 Balance -795.834 192.917 -1160 - Lab Results Lab Results: 08/24/17 06:29 08/24/17 06:29 Other Lab Results: Lab Results x24hrs 08/24/17 08/24/17 08/24/17 Range/Units 07:18 06:29 06:29 WBC 8.5 (4.8-10.8) x10^3/uL RBC 2.49 L (4.70-6.10) 10^6/uL Hgb 7.3 L (14.0-18.0) g/dL Hct 22.5 L (42.0-52.0) % MCV 90.3 (80.0-94.0) fL MCH 29.6 (27.0-31.0) pg MCHC 32.7 (32.0-36.0) g/dL RDW 13.6 (12.0-15.0) % Plt Count 251 (130-450) 10^3/uL MPV 6.2 L (7.4-11.4) fL Neut # 5.7 (1.5-6.6) 10^3/uL Lymph # 1.4 L (1.5-3.5) 10^3/uL Grant # 1.1 H (0.0-1.0) 10^3/uL Eos # 0.2 (0.0-0.7) 10^3/uL Baso # 0.1 (0.0-0.1) 10^3/uL Absolute Nucleated RBC 0.01 x10^3/uL Nucleated RBC % 0.1 /100WBC Sodium 132 L (135-145) mmol/L Potassium 4.1 (3.5-5.0) mmol/L Chloride 104 (101-111) mmol/L Carbon Dioxide 23 (21-32) mmol/L Anion Gap 5.0 L (6-13) BUN 12 (6-20) mg/dL Creatinine 1.1 (0.6-1.2) mg/dL Estimated GFR (MDRD) 66 L (>89) Glucose 140 H (70-100) mg/dL POC Whole Bld Glucose 146 H (70 - 100) mg/dL Calcium 8.2 L (8.5-10.3) mg/dL Iron 14 L (45-182) ug/dL TIBC 148 L (250-450) ug/dL % Saturation 9 L (20-50) % Transferrin 106 L (180-329) mg/dL Last Dose Date Last Dose Time Vancomycin Trough (5.0-15.0) ug/mL 08/23/17 08/23/17 08/23/17 Range/Units 20:29 16:27 11:42 WBC (4.8-10.8) x10^3/uL RBC (4.70-6.10) 10^6/uL Hgb (14.0-18.0) g/dL Hct (42.0-52.0) % MCV (80.0-94.0) fL MCH (27.0-31.0) pg MCHC (32.0-36.0) g/dL RDW (12.0-15.0) % Plt Count (130-450) 10^3/uL MPV (7.4-11.4) fL Neut # (1.5-6.6) 10^3/uL Lymph # (1.5-3.5) 10^3/uL Grant # (0.0-1.0) 10^3/uL Eos # (0.0-0.7) 10^3/uL Baso # (0.0-0.1) 10^3/uL Absolute Nucleated RBC x10^3/uL Nucleated RBC % /100WBC Sodium (135-145) mmol/L Potassium (3.5-5.0) mmol/L Chloride (101-111) mmol/L Carbon Dioxide (21-32) mmol/L Anion Gap (6-13) BUN (6-20) mg/dL Creatinine (0.6-1.2) mg/dL Estimated GFR (MDRD) (>89) Glucose (70-100) mg/dL POC Whole Bld Glucose 205 H 173 H 184 H (70 - 100) mg/dL Calcium (8.5-10.3) mg/dL Iron (45-182) ug/dL TIBC (250-450) ug/dL % Saturation (20-50) % Transferrin (180-329) mg/dL Last Dose Date Last Dose Time Vancomycin Trough (5.0-15.0) ug/mL 08/23/17 Range/Units 11:40 WBC (4.8-10.8) x10^3/uL RBC (4.70-6.10) 10^6/uL Hgb (14.0-18.0) g/dL Hct (42.0-52.0) % MCV (80.0-94.0) fL MCH (27.0-31.0) pg MCHC (32.0-36.0) g/dL RDW (12.0-15.0) % Plt Count (130-450) 10^3/uL MPV (7.4-11.4) fL Neut # (1.5-6.6) 10^3/uL Lymph # (1.5-3.5) 10^3/uL Grant # (0.0-1.0) 10^3/uL Eos # (0.0-0.7) 10^3/uL Baso # (0.0-0.1) 10^3/uL Absolute Nucleated RBC x10^3/uL Nucleated RBC % /100WBC Sodium (135-145) mmol/L Potassium (3.5-5.0) mmol/L Chloride (101-111) mmol/L Carbon Dioxide (21-32) mmol/L Anion Gap (6-13) BUN (6-20) mg/dL Creatinine (0.6-1.2) mg/dL Estimated GFR (MDRD) (>89) Glucose (70-100) mg/dL POC Whole Bld Glucose (70 - 100) mg/dL Calcium (8.5-10.3) mg/dL Iron (45-182) ug/dL TIBC (250-450) ug/dL % Saturation (20-50) % Transferrin (180-329) mg/dL Last Dose Date 08/23/17 Last Dose Time 02:02 Vancomycin Trough 22.2 H (5.0-15.0) ug/mL - Current Medications Current Medications: Current Medications Generic Name Dose Route Start Last Admin Trade Name Freq PRN Reason Stop Dose Admin Acetaminophen 650 mg 08/18/17 20:07 08/22/17 14:47 Tylenol PO 650 mg Q4HR PRN Administration Pain 1 to 4 Amlodipine Besylate 5 mg 08/19/17 09:00 08/23/17 08:50 Norvasc PO 5 mg DAILY CATIE Administration Aspirin 81 mg 08/19/17 09:00 08/24/17 09:11 Ecotrin PO 81 mg DAILY CATIE Administration Atorvastatin Calcium 40 mg 08/19/17 09:00 08/23/17 08:50 Lipitor PO 40 mg DAILY CATIE Administration Carvedilol 25 mg 08/18/17 21:00 08/24/17 09:10 Coreg PO 25 mg BID CATIE Administration Diphenhydramine HCl 12.5 mg 08/19/17 13:43 08/23/17 11:53 Benadryl Elixir PO 12.5 mg Q6HR PRN Administration ITCHING Docusate Sodium 250 - 500 mg 08/20/17 10:00 08/24/17 09:05 Colace 250mg Capsule PO 250 mg DAILY CATIE Administration Duloxetine HCl 60 mg 08/18/17 21:00 08/23/17 20:49 Cymbalta PO 60 mg QPM CATIE Administration Famotidine 20 mg 08/19/17 09:00 08/24/17 09:06 Pepcid PO 20 mg DAILY CATIE Administration Acetaminophen 100 mls @ 400 mls/hr 08/22/17 18:17 08/23/17 16:20 Ofirmev IV Infused Q6HR PRN Infusion PAIN Vancomycin HCl 1 gm/ Sodium 250 mls @ 166.667 mls/hr 08/23/17 18:00 08/23/17 19:15 Chloride IV Infused Q18H CATIE Infusion Insulin Aspart 1 - 9 unit 08/22/17 17:00 08/24/17 09:04 Novolog SUBQ 1 unit 0800,1200,1700,2100 CATIE Administration Protocol Insulin Glargine 40 unit 08/20/17 23:00 08/23/17 20:52 Lantus Solostar SUBQ 40 unit QPM CATIE Administration Loratadine 10 mg 08/19/17 09:00 08/23/17 08:51 Claritin PO 10 mg DAILY CATIE Administration Losartan Potassium 50 mg 08/19/17 09:00 08/23/17 08:51 Cozaar PO 50 mg DAILY CATIE Administration Morphine Sulfate 4 mg 08/19/17 20:35 08/24/17 08:59 Morphine IVP 4 mg Q2H PRN Administration Pain 8 to 10 Oxycodone HCl 10 mg 08/19/17 14:53 08/24/17 04:39 Roxicodone PO 10 mg Q4HR PRN Administration PAIN Polyethylene Glycol 17 gm 08/19/17 09:00 08/23/17 08:51 Miralax PO 17 gm DAILY CATIE Administration Saccharomyces Boulardii 250 mg 08/19/17 08:00 08/24/17 09:09 Florastor PO 250 mg BIDWM CATIE Administration Senna 8.6 - 17.2 mg 08/24/17 09:00 08/24/17 09:06 Senokot PO 17.2 mg DAILY CATIE Administration Sodium Chloride 10 ml 08/18/17 20:07 08/23/17 23:59 Normal Saline Flush 0.9% IVP 10 ml PRN PRN Administration NEEDED PER PROVIDER ORDERS Sodium Chloride 10 ml 08/19/17 01:00 08/23/17 21:28 Normal Saline Flush 0.9% IVP 10 ml 0100,0900,1700 CATIE Administration Spironolactone 25 mg 08/19/17 09:00 08/23/17 08:50 Aldactone PO 25 mg DAILY CATIE Administration - Physical Exam Wound/Incisions: positive: Healing well General Appearance: positive: Mild distress Extremities: positive: Other (healing amputation site well) Neurologic/Psychiatric: positive: Motor nml, Sensation nml, Mood/affect nml Impression/Plan - Problem List Problem List: POD #2 Pt is having some pain management issues to be corrected/helped with med changes. ASA for DVT prophylaxis Transfusion for anemia PT: sit in chair.
[2017-08-24] MEDS: SPIRONOLACTONE 25 MG TABLET PO SCH (09:27)
[2017-08-24] MEDS: FERROUS SULFATE 325 MG TABLET PO SCH ×2 (09:27→17:32)
[2017-08-24] MEDS ORDERED: ACETAMINOPHEN 325 MG TABLET PO ONE (10:27)
[2017-08-24] MEDS ORDERED: FUROSEMIDE 20 MG/2 ML VIAL IVP PRN (10:27)
[2017-08-24] MEDS ORDERED: SODIUM CHLORIDE 0.9% MINIBAG 100 ML IV ONE (11:16)
[2017-08-24] MEDS: VANCOMYCIN INJ 1 GM in SODIUM CHLORIDE 0.9% 250 ML IV SCH (11:42)
[2017-08-24] MEDS ORDERED: diphenhydrAMINE 25 MG CAPSULE PO ONE (12:00)
--- NOTE | 2017-08-24 12:30 | PROVIDER PROGRESS NOTE ---
Assessment/Plan - Problem List (1) Osteomyelitis Qualifiers: Osteomyelitis location: foot Laterality: right Assessment/Plan: Pt is POD #2. Stump was redressed and bandaged by Orthopod and I saw it, looks clean and dry. Pt to start PT with OOB to chair today. Will stop iv antibiotics for osteo today. Possible transfer to SNF tomorrow (2) Anemia Qualifiers: Anemia type: iron deficiency Assessment/Plan: B12 and Folate levels are adequtate. All Iron levels are low. Pt is also SOB with minimal movement. Will start Ferrous sulfate replacement bid. Will transfuse 2 U PRBCs with Lasix in between. Check CBC in am. (3) Cor pulmonale (chronic) Assessment/Plan: Stable (4) Diabetes Qualifiers: Diabetes mellitus type: type 2 Diabetes mellitus intermediate insulin use: with merchandise deliverer use Diabetes mellitus complication status: with hypoglycemia Diabetes mellitus complication detail: without coma Qualified Code(s): E11.649 - Type 2 diabetes mellitus with hypoglycemia without coma; Z79.4 - group home (current) use of insulin; Z79.4 - cdl program coordinator (current) use of insulin; Z79.4 - group home (current) use of insulin; Z79.4 - cdl program coordinator (current) use of insulin Assessment/Plan: Continue DM diet, Insulin coverage and glu monitoring - Current Meds Current Meds: Current Medications Generic Name Dose Route Start Last Admin Trade Name Freq PRN Reason Stop Dose Admin Acetaminophen 650 mg 08/18/17 20:07 08/22/17 14:47 Tylenol PO 650 mg Q4HR PRN Administration Pain 1 to 4 Amlodipine Besylate 5 mg 08/19/17 09:00 08/24/17 09:13 Norvasc PO 5 mg DAILY CATIE Administration Aspirin 81 mg 08/19/17 09:00 08/24/17 09:11 Ecotrin PO 81 mg DAILY CATIE Administration Atorvastatin Calcium 40 mg 08/19/17 09:00 08/24/17 09:13 Lipitor PO 40 mg DAILY CATIE Administration Carvedilol 25 mg 08/18/17 21:00 08/24/17 09:10 Coreg PO 25 mg BID CATIE Administration Diphenhydramine HCl 12.5 mg 08/19/17 13:43 08/23/17 11:53 Benadryl Elixir PO 12.5 mg Q6HR PRN Administration ITCHING Docusate Sodium 250 - 500 mg 08/20/17 10:00 08/24/17 09:05 Colace 250mg Capsule PO 250 mg DAILY CATIE Administration Duloxetine HCl 60 mg 08/18/17 21:00 08/23/17 20:49 Cymbalta PO 60 mg QPM CATIE Administration Famotidine 20 mg 08/19/17 09:00 08/24/17 09:06 Pepcid PO 20 mg DAILY CATIE Administration Ferrous Sulfate 325 mg 08/24/17 09:00 08/24/17 09:27 Feosol PO 325 mg BIDWM CATIE Administration Acetaminophen 100 mls @ 400 mls/hr 08/22/17 18:17 08/23/17 16:20 Ofirmev IV Infused Q6HR PRN Infusion PAIN Vancomycin HCl 1 gm/ Sodium 250 mls @ 166.667 mls/hr 08/23/17 18:00 08/24/17 11:42 Chloride IV 167 mls/hr Q18H CATIE Administration Insulin Aspart 1 - 9 unit 08/22/17 17:00 08/24/17 11:38 Novolog SUBQ 1 unit 0800,1200,1700,2100 CATIE Administration Protocol Insulin Glargine 40 unit 08/20/17 23:00 08/23/17 20:52 Lantus Solostar SUBQ 40 unit QPM CATIE Administration Loratadine 10 mg 08/19/17 09:00 08/24/17 09:13 Claritin PO 10 mg DAILY CATIE Administration Losartan Potassium 50 mg 08/19/17 09:00 08/24/17 09:13 Cozaar PO 50 mg DAILY CATIE Administration Morphine Sulfate 4 mg 08/19/17 20:35 08/24/17 08:59 Morphine IVP 4 mg Q2H PRN Administration Pain 8 to 10 Oxycodone HCl 10 mg 08/19/17 14:53 08/24/17 10:07 Roxicodone PO 10 mg Q4HR PRN Administration PAIN Polyethylene Glycol 17 gm 08/19/17 09:00 08/23/17 08:51 Miralax PO 17 gm DAILY CATIE Administration Saccharomyces Boulardii 250 mg 08/19/17 08:00 08/24/17 09:09 Florastor PO 250 mg BIDWM CATIE Administration Senna 8.6 - 17.2 mg 08/24/17 09:00 08/24/17 09:06 Senokot PO 17.2 mg DAILY CATIE Administration Sodium Chloride 10 ml 08/18/17 20:07 08/23/17 23:59 Normal Saline Flush 0.9% IVP 10 ml PRN PRN Administration NEEDED PER PROVIDER ORDERS Sodium Chloride 10 ml 08/19/17 01:00 08/24/17 09:15 Normal Saline Flush 0.9% IVP 10 ml 0100,0900,1700 CATIE Administration Spironolactone 25 mg 08/19/17 09:00 08/24/17 09:27 Aldactone PO 25 mg DAILY CATIE Administration - Lab Result Fish Bone Diagrams: 08/24/17 06:29 08/24/17 06:29 - Additional Planning My Orders: My Active Orders 08/24/17 09:00 Ferrous Sulfate [Feosol] 325 mg PO BIDWM Senna [Senokot] 8.6 - 17.2 mg PO DAILY 08/24/17 10:27 Transfuse RBCs Leukoreduced [RC] .ONCE FUROSEMIDE INJ 20mg VIAL [LASIX INJ 20mg VIAL] 20 mg IVP ONCE PRN 08/24/17 10:41 RBC, LEUKOREDUCED Routine TYPE AND SCREEN Routine 08/25/17 05:00 BMP - BASIC METABOLIC PANEL [CHEM] DAILYLAB CBC - COMP BLD CT W/AUTO DIFF [HEME] DAILYLAB Subjective - Subjective Patient Reports: Feeling Better, Other (Pain during dressing change of R BKA stump.) Nursing Reports: Other (Dr Paulino changed dressing on R BKA stump.) Objective Vital Signs: Vital Signs - 24 hr 08/23/17 08/23/17 08/23/17 12:38 15:24 21:19 Temperature 36.7 C 36.9 C 36.6 C Heart Rate Heart Rate [ 86 90 85 Brachial] Respiratory 12 16 16 Rate Blood Pressure 137/121 H 113/61 119/73 [Right Brachial artery] O2 Saturation 94 94 95 08/23/17 08/23/17 08/24/17 23:15 23:55 04:30 Temperature 36.7 C 36.6 C Heart Rate 78 Heart Rate [ 85 82 Brachial] Respiratory 16 18 18 Rate Blood Pressure 136/64 H 127/65 [Right Brachial artery] O2 Saturation 98 99 08/24/17 08/24/17 07:22 11:50 Temperature 36.6 C Heart Rate 84 Heart Rate [ 85 Brachial] Respiratory 16 16 Rate Blood Pressure 129/64 [Right Brachial artery] O2 Saturation 95 Oxygen O2 Source Room air I&O (Last 24 Hrs): Intake and Output Totals x24h 08/22/17 08/23/17 08/24/17 23:59 23:59 23:59 Intake Total 2529.166 2892.917 640 Output Total 3325 2700 2200 Balance -795.834 192.917 -1560 General: Alert, Oriented x3 HEENT: Mucous membr. moist/pink Neck: Supple Neuro: Non Focal Cardiovascular: No murmurs Respiratory: Breath sounds nml Abdomen: Soft, Other (Obese with pannus) Extremities: Other (L leg venous stasis changes without edema. R BKA stump dry, mild swelling of leg above stump.) - Results Results: Laboratory Results WBC 8.5 x10^3/uL (4.8-10.8) 08/24/17 06: RBC 2.49 10^6/uL (4.70-6.10) L 08/24/17 06:29 Hgb 7.3 g/dL (14.0-18.0) L 08/24/17 06:29 Hct 22.5 % (42.0-52.0) L 08/24/17 06:29 MCV 90.3 fL (80.0-94.0) 08/24/17 06:29 MCH 29.6 pg (27.0-31.0) 08/24/17 06: MCHC 32.7 g/dL (32.0-36.0) 08/24/17 06: RDW 13.6 % (12.0-15.0) 08/24/17 06:29 Plt Count 251 10^3/uL (130-450) 08/24/17 06:29 MPV 6.2 fL (7.4-11.4) L 08/24/17 06:29 Neut # 5.7 10^3/uL (1.5-6.6) 08/24/17 06:29 Lymph # 1.4 10^3/uL (1.5-3.5) L 08/24/17 06:29 [place] # 1.1 10^3/uL (0.0-1.0) H 08/24/17 06:29 Eos # 0.2 10^3/uL (0.0-0.7) 08/24/17 06:29 Baso # 0.1 10^3/uL (0.0-0.1) 08/24/17 06:29 Absolute Nucleated RBC 0.01 x10^3/uL 08/24/17 06: Nucleated RBC % 0.1 /100WBC 08/24/17 06:29 ESR 39 mm/Hr (0-20) H 08/18/17 18:51 Sodium 132 mmol/L (135-145) L 08/24/17 06:29 Potassium 4.1 mmol/L (3.5-5.0) 08/24/17 06:29 Chloride 104 mmol/L (101-111) 08/24/17 06:29 Carbon Dioxide 23 mmol/L (21-32) 08/24/17 06:29 Anion Gap 5.0 (6-13) L 08/24/17 06:29 BUN 12 mg/dL (6-20) 08/24/17 06:29 Creatinine 1.1 mg/dL (0.6-1.2) 08/24/17 06:29 Estimated GFR (MDRD) 66 (>89) L 08/24/17 06:29 Glucose 140 mg/dL (70-100) H 08/24/17 06:29 POC Whole Bld Glucose 175 mg/dL (70 - 100) H 08/24/17 11:09 Glycated Hemoglobin 7.6 % (4.6-6.2) H 08/18/17 18:42 Estim Average Glucose 171 (70-100) H 08/18/17 18:42 Lactic Acid 1.4 mmol/L (0.5-2.2) 08/18/17 18:42 Calcium 8.2 mg/dL (8.5-10.3) L 08/24/17 06:29 Iron 14 ug/dL (45-182) L 08/24/17 06:29 TIBC 148 ug/dL (250-450) L 08/24/17 06: % Saturation 9 % (20-50) L 08/24/17 06: Transferrin 106 mg/dL (180-329) L 08/24/17 06:29 Ferritin 718.9 ng/mL (23.9-336.2) H 08/19/17 06:00 Total Bilirubin 0.6 mg/dL (0.2-1.0) 08/18/17 18:42 AST 26 IU/L (10-42) 08/18/17 18:42 ALT 24 IU/L (10-60) 08/18/17 18:42 Alkaline Phosphatase 132 IU/L (42-121) H 08/18/17 18:42 C-Reactive Protein 19.9 mg/dL (0-1.0) H 08/18/17 18:42 Total Protein 8.3 g/dL (6.7-8.2) H 08/18/17 18:42 Albumin 3.1 g/dL (3.2-5.5) L 08/18/17 18:42 Globulin 5.2 g/dL (2.1-4.2) H 08/18/17 18:42 Albumin/Globulin Ratio 0.6 (1.0-2.2) L 08/18/17 18:42 Lipase 13 U/L (22-51) L 08/18/17 18:42 Vitamin B12 1315 pg/mL (180-914) H 08/19/17 06:00 Folate 14.43 ng/mL (5.90 - >24.8) 08/19/17 06:00 Urine Color YELLOW 08/21/17 18:05 Urine Clarity CLEAR (CLEAR) 08/21/17 18:05 Urine pH 6.5 PH (5.0-7.5) 08/21/17 18:05 Ur Specific [place] 1.020 (1.002-1.030) 08/21/17 18:05 Urine Protein TRACE mg/dL (NEGATIVE) 08/21/17 18:05 Urine Glucose (UA) NEGATIVE mg/dL (NEGATIVE) 08/21/17 18:05 Urine Ketones NEGATIVE mg/dL (NEGATIVE) 08/21/17 18:05 Urine Occult Blood NEGATIVE (NEGATIVE) 08/21/17 18:05 Urine Nitrite NEGATIVE (NEGATIVE) 08/21/17 18:05 Urine Bilirubin NEGATIVE (NEGATIVE) 08/21/17 18:05 Urine Urobilinogen 1 (NORMAL) E.U./dL (NORMAL) 08/21/17 18:05 Ur Leukocyte Esterase NEGATIVE (NEGATIVE) 08/21/17 18:05 Urine RBC None Seen /HPF (0-5) 08/21/17 18:05 Urine WBC 0-3 /HPF (0-3) 08/21/17 18:05 Ur Squamous Epith Cells RARE Squamous (<= Few) 08/21/17 18:05 Urine Bacteria None Seen /HPF (None Seen) 08/21/17 18:05 Urine Culture Comments NOT INDICATED 08/21/17 18:05 Last Dose Date 08/23/17 08/23/17 11:40 Last Dose Time 02:02 08/23/17 11:40 Vancomycin Trough 22.2 ug/mL (5.0-15.0) H 08/23/17 11:40 Blood Type A POSITIVE 08/24/17 10:41 Antibody Screen NEGATIVE 08/24/17 10:41 Crossmatch IS Only See Detail 08/24/17 10:41
[2017-08-24] MEDS: GABAPENTIN 400 MG CAPSULE PO SCH ×3 (12:41→20:30)
[2017-08-24] MEDS: POLYETHYLENE GLYCOL 3350 17 GM PACKET PO SCH (12:45)
[2017-08-24] MEDS: SODIUM CHLORIDE FLUSH 0.9% 10 ML SYRINGE IVP PRN (20:29)
[2017-08-24] MEDS: DULoxetine 30 MG CAPSULE PO SCH (20:30)
[2017-08-24] MEDS: INSULIN GLARGINE 300 UNIT/3 ML PEN SUBQ SCH (21:18)
[2017-08-25] MEDS: MORPHINE 2 MG/ML SYRINGE IVP PRN ×2 (01:21→08:12)
[2017-08-25] MEDS: SODIUM CHLORIDE FLUSH 0.9% 10 ML SYRINGE IVP PRN (01:21)
[2017-08-25 06:27] LABS: BASOPHILS # (AUTO) 0.1 10^3/uL (0.0-0.1); BASOPHILS % (AUTO) 0.9 %; EOSINOPHILS # (AUTO) 0.2 10^3/uL (0.0-0.7); EOSINOPHILS % (AUTO) 2.2 %; HGB - HEMOGLOBIN 8.9 g/dL (14.0-18.0); LYMPHOCYTES # (AUTO) 1.6 10^3/uL (1.5-3.5); LYMPHOCYTES % (AUTO) 20.9 %; MEAN CORPUSCULAR HEMOGLOBIN 28.7 pg (27.0-31.0); MEAN CORPUSCULAR HGB CONC 32.6 g/dL (32.0-36.0); MEAN PLATELET VOLUME 6.4 fL (7.4-11.4); MONOCYTES % (AUTO) 13.1 %; NEUTROPHILS # (AUTO) 4.9 10^3/uL (1.5-6.6); NEUTROPHILS % (AUTO) 62.9 %; PLT - PLATELET COUNT 258 10^3/uL (130-450); RED CELL DISTRIBUTION WIDTH 14.5 % (12.0-15.0); WHITE BLOOD COUNT 7.8 x10^3/uL (4.8-10.8)
[2017-08-25 06:39] LABS: CALCIUM 8.7 mg/dL (8.5-10.3)
[2017-08-25] MEDS: oxyCODONE 5 MG TABLET PO PRN ×2 (08:13→15:57)
[2017-08-25] MEDS: INSULIN ASPART 300 UNIT/3 ML PEN SUBQ SCH ×4 (08:50→21:13)
[2017-08-25] MEDS: POLYETHYLENE GLYCOL 3350 17 GM PACKET PO SCH (09:54)
[2017-08-25] MEDS: SACCHAROMYCES BOULARDII 250 MG CAPSULE PO SCH ×2 (09:56→16:45)
[2017-08-25] MEDS: ACETAMINOPHEN 325 MG TABLET PO PRN (09:56)
[2017-08-25] MEDS: DOCUSATE SODIUM 250 MG CAPSULE PO SCH (09:56)
[2017-08-25] MEDS: FERROUS SULFATE 325 MG TABLET PO SCH ×2 (09:57→16:45)
[2017-08-25] MEDS: amLODIPine 5 MG TABLET PO SCH (09:57)
[2017-08-25] MEDS: CARVEDILOL 12.5 MG TABLET PO SCH ×2 (09:57→21:10)
[2017-08-25] MEDS: LORATADINE 10 MG TABLET PO SCH (09:57)
[2017-08-25] MEDS: SENNA 8.6 MG TABLET PO SCH (09:57)
[2017-08-25] MEDS: SPIRONOLACTONE 25 MG TABLET PO SCH (09:58)
[2017-08-25] MEDS: ATORVASTATIN 40 MG TABLET PO SCH ×2 (09:58→09:59)
[2017-08-25] MEDS: GABAPENTIN 400 MG CAPSULE PO SCH ×4 (09:58→21:07)
[2017-08-25] MEDS: ASPIRIN EC 81 MG TABLET PO SCH (09:59)
[2017-08-25] MEDS: LOSARTAN 50 MG TABLET PO SCH (09:59)
[2017-08-25] MEDS: FAMOTIDINE 20 MG TABLET PO SCH (10:00)
[2017-08-25] MEDS: SODIUM CHLORIDE FLUSH 0.9% 10 ML SYRINGE IVP SCH ×2 (10:01→16:46)
[2017-08-25] MEDS ORDERED: oxyCODONE ER 10 MG TABLET PO SCH (11:00)
[2017-08-25] MEDS: oxyCODONE ER 10 MG TABLET PO SCH ×2 (12:04→21:08)
[2017-08-25] MEDS ORDERED: SODIUM CHLORIDE FLUSH 0.9% 10 ML SYRINGE ONE (13:10)
--- NOTE | 2017-08-25 15:07 | PROVIDER PROGRESS NOTE ---
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 Antibiotics were stopped, to assess for any further fever or signs of infection. Will add extended release Oxycontin for adequate pain control, before transfer to SNF. Will DC Mahan to assess for urinary retention, before transfer to SNF. Bedside commode ordered. Plan for transfer to SNF probably tomorrow, for Rehab. (2) Anemia Qualifiers: Anemia type: iron deficiency Assessment/Plan: H/H improved after 2 U PRBCs transfused yesterday. Pt on oral Iron reolacement. Monitor CBC daily while here. (3) Diabetes Qualifiers: Diabetes mellitus type: type 2 Diabetes mellitus mcfp insulin use: with ferry terminal agent use Diabetes mellitus complication status: with hypoglycemia Diabetes mellitus complication detail: without coma Qualified Code(s): E11.649 - Type 2 diabetes mellitus with hypoglycemia without coma; Z79.4 - terminal block assembler (current) use of insulin; Z79.4 - terminal block assembler (current) use of insulin; Z79.4 - retirement (current) use of insulin; Z79.4 - retirement (current) use of insulin Assessment/Plan: Stable glu monitoring checks. Continue present diet and Insulin coverage, and meds for neuropathy. (4) Cor pulmonale (chronic) Assessment/Plan: Stable - Current Meds Current Meds: Current Medications Generic Name Dose Route Start Last Admin Trade Name Freq PRN Reason Stop Dose Admin Acetaminophen 650 mg 08/18/17 20:07 08/25/17 09:56 Tylenol PO 650 mg Q4HR PRN Administration Pain 1 to 4 Amlodipine Besylate 5 mg 08/19/17 09:00 08/25/17 09:57 Norvasc PO 5 mg DAILY CATIE Administration Aspirin 81 mg 08/19/17 09:00 08/25/17 09:59 Ecotrin PO 81 mg DAILY CATIE Administration Atorvastatin Calcium 40 mg 08/19/17 09:00 08/25/17 09:59 Lipitor PO 40 mg DAILY CATIE Administration Carvedilol 25 mg 08/18/17 21:00 08/25/17 09:57 Coreg PO 25 mg BID CATIE Administration Diphenhydramine HCl 12.5 mg 08/19/17 13:43 08/23/17 11:53 Benadryl Elixir PO 12.5 mg Q6HR PRN Administration ITCHING Docusate Sodium 250 - 500 mg 08/20/17 10:00 08/25/17 09:56 Colace 250mg Capsule PO 250 mg DAILY CATIE Administration Duloxetine HCl 60 mg 08/18/17 21:00 08/24/17 20:30 Cymbalta PO 60 mg QPM CATIE Administration Famotidine 20 mg 08/19/17 09:00 08/25/17 10:00 Pepcid PO 20 mg DAILY CATIE Administration Ferrous Sulfate 325 mg 08/24/17 09:00 08/25/17 09:57 Feosol PO 325 mg BIDWM CATIE Administration Gabapentin 800 mg 08/24/17 13:00 08/25/17 12:04 Neurontin PO 800 mg QID CATIE Administration Acetaminophen 100 mls @ 400 mls/hr 08/22/17 18:17 08/23/17 16:20 Ofirmev IV Infused Q6HR PRN Infusion PAIN Insulin Aspart 1 - 9 unit 08/22/17 17:00 08/25/17 12:05 Novolog SUBQ 3 unit 0800,1200,1700,2100 CATIE Administration Protocol Insulin Glargine 40 unit 08/20/17 23:00 08/24/17 21:18 Lantus Solostar SUBQ 40 unit QPM CATIE Administration Loratadine 10 mg 08/19/17 09:00 08/25/17 09:57 Claritin PO 10 mg DAILY CATIE Administration Losartan Potassium 50 mg 08/19/17 09:00 08/25/17 09:59 Cozaar PO 50 mg DAILY CATIE Administration Morphine Sulfate 4 mg 08/24/17 12:34 08/25/17 08:12 Morphine IVP 4 mg Q8H PRN Administration Pain 8 to 10 Oxycodone HCl 10 mg 08/19/17 14:53 08/25/17 08:13 Roxicodone PO 10 mg Q4HR PRN Administration PAIN Oxycodone HCl 30 mg 08/25/17 11:00 08/25/17 12:04 Oxycontin PO 30 mg BID CATIE Administration Polyethylene Glycol 17 gm 08/19/17 09:00 08/25/17 09:54 Miralax PO 17 gm DAILY CATIE Administration Saccharomyces Boulardii 250 mg 08/19/17 08:00 08/25/17 09:56 Florastor PO 250 mg BIDWM CATIE Administration Senna 8.6 - 17.2 mg 08/24/17 09:00 08/25/17 09:57 Senokot PO 8.6 mg DAILY CATIE Administration Sodium Chloride 10 ml 08/18/17 20:07 08/25/17 01:21 Normal Saline Flush 0.9% IVP 10 ml PRN PRN Administration NEEDED PER PROVIDER ORDERS Sodium Chloride 10 ml 08/19/17 01:00 08/25/17 10:01 Normal Saline Flush 0.9% IVP 10 ml 0100,0900,1700 CATIE Administration Spironolactone 25 mg 08/19/17 09:00 08/25/17 09:58 Aldactone PO 25 mg DAILY CATIE Administration - Lab Result Fish Bone Diagrams: 08/25/17 06:17 08/25/17 06:17 - Additional Planning My Orders: My Active Orders 08/25/17 11:00 oxyCODONE ER [OxyCONTIN] 30 mg PO BID Subjective - Subjective Patient Reports: Feeling Better, Other (Still gets breakthrough pain at amputated stump site.) Nursing Reports: Other (Mahan still in and Pt has a Hx of urinary retention.) Objective Vital Signs: Vital Signs - 24 hr 08/24/17 08/24/17 08/24/17 16:58 17:00 17:03 Temperature 36.7 C 36.5 C 36.9 C Heart Rate 82 83 Heart Rate [ 85 Brachial] Respiratory 18 17 18 Rate Blood Pressure 137/61 H 128/65 Blood Pressure 128/67 [Right Brachial artery] O2 Saturation 98 08/24/17 08/24/17 08/24/17 17:13 20:30 20:53 Temperature 36.9 C 36.5 C 36.6 C Heart Rate 82 65 72 Heart Rate [ Brachial] Respiratory 18 18 18 Rate Blood Pressure 121/63 102/47 L 112/52 L Blood Pressure [Right Brachial artery] O2 Saturation 08/24/17 08/24/17 08/24/17 21:00 21:08 21:23 Temperature 36.6 C 36.6 C 36.6 C Heart Rate 78 81 Heart Rate [ 78 Brachial] Respiratory 17 18 16 Rate Blood Pressure 111/59 L 139/70 H Blood Pressure 139/70 H [Right Brachial artery] O2 Saturation 95 05/08/25/17 08/25/17 22:16 00:17 05:45 Temperature 37.0 C 36.9 C Heart Rate 78 78 Heart Rate [ 84 Brachial] Respiratory 17 18 18 Rate Blood Pressure 143/77 H Blood Pressure 144/78 H [Right Brachial artery] O2 Saturation 96 08/25/17 08/25/17 08/25/17 07:55 10:00 12:25 Temperature 36.1 C L 37 C Heart Rate 86 Heart Rate [ 84 85 Brachial] Respiratory 20 16 16 Rate Blood Pressure Blood Pressure 157/72 H 143/79 H [Right Brachial artery] O2 Saturation 95 95 Oxygen O2 Source Room air I&O (Last 24 Hrs): Intake and Output Totals x24h 08/23/17 08/24/17 08/25/17 23:59 23:59 23:59 Intake Total 2892.917 2830 1015 Output Total 2700 3300 1200 Balance 192.917 -470 -185 General: Alert, Oriented x3, No acute distress HEENT: Mucous membr. moist/pink Neck: Supple, No JVD Neuro: Non Focal Cardiovascular: No murmurs Respiratory: Breath sounds nml Abdomen: Soft Extremities: No edema (R BKA stump bandaged.) - Results Results: Laboratory Results WBC 7.8 x10^3/uL (4.8-10.8) 08/25/17 06:17 RBC 3.10 10^6/uL (4.70-6.10) L 08/25/17 06:17 Hgb 8.9 g/dL (14.0-18.0) L 08/25/17 06:17 Hct 27.3 % (42.0-52.0) L 08/25/17 06:17 MCV 88.0 fL (80.0-94.0) 08/25/17 06:17 MCH 28.7 pg (27.0-31.0) 08/25/17 06:17 MCHC 32.6 g/dL (32.0-36.0) 08/25/17 06:17 RDW 14.5 % (12.0-15.0) 08/25/17 06:17 Plt Count 258 10^3/uL (130-450) 08/25/17 06:17 MPV 6.4 fL (7.4-11.4) L 08/25/17 06:17 Neut # 4.9 10^3/uL (1.5-6.6) 08/25/17 06:17 Lymph # 1.6 10^3/uL (1.5-3.5) 08/25/17 06:17 [place] # 1.0 10^3/uL (0.0-1.0) 08/25/17 06:17 Eos # 0.2 10^3/uL (0.0-0.7) 08/25/17 06:17 Baso # 0.1 10^3/uL (0.0-0.1) 08/25/17 06:17 Absolute Nucleated RBC 0.00 x10^3/uL 08/25/17 06:17 Nucleated RBC % 0.0 /100WBC 08/25/17 06:17 ESR 39 mm/Hr (0-20) H 08/18/17 18:51 Sodium 135 mmol/L (135-145) 08/25/17 06:17 Potassium 4.0 mmol/L (3.5-5.0) 08/25/17 06:17 Chloride 104 mmol/L (101-111) 08/25/17 06:17 Carbon Dioxide 23 mmol/L (21-32) 08/25/17 06:17 Anion Gap 8.0 (6-13) 08/25/17 06:17 BUN 13 mg/dL (6-20) 08/25/17 06:17 Creatinine 1.0 mg/dL (0.6-1.2) 08/25/17 06:17 Estimated GFR (MDRD) 73 (>89) L 08/25/17 06:17 Glucose 145 mg/dL (70-100) H 08/25/17 06:17 POC Whole Bld Glucose 219 mg/dL (70 - 100) H 08/25/17 11:01 Glycated Hemoglobin 7.6 % (4.6-6.2) H 08/18/17 18:42 Estim Average Glucose 171 (70-100) H 08/18/17 18:42 Lactic Acid 1.4 mmol/L (0.5-2.2) 08/18/17 18:42 Calcium 8.7 mg/dL (8.5-10.3) 08/25/17 06:17 Iron 14 ug/dL (45-182) L 08/24/17 06:29 TIBC 148 ug/dL (250-450) L 08/24/17 06:29 % Saturation 9 % (20-50) L 08/24/17 06:29 Transferrin 106 mg/dL (180-329) L 08/24/17 06:29 Ferritin 718.9 ng/mL (23.9-336.2) H 08/19/17 06:00 Total Bilirubin 0.6 mg/dL (0.2-1.0) 08/18/17 18:42 AST 26 IU/L (10-42) 08/18/17 18:42 ALT 24 IU/L (10-60) 08/18/17 18:42 Alkaline Phosphatase 132 IU/L (42-121) H 08/18/17 18:42 C-Reactive Protein 19.9 mg/dL (0-1.0) H 08/18/17 18:42 Total Protein 8.3 g/dL (6.7-8.2) H 08/18/17 18:42 Albumin 3.1 g/dL (3.2-5.5) L 08/18/17 18:42 Globulin 5.2 g/dL (2.1-4.2) H 08/18/17 18:42 Albumin/Globulin Ratio 0.6 (1.0-2.2) L 08/18/17 18:42 Lipase 13 U/L (22-51) L 08/18/17 18:42 Vitamin B12 1315 pg/mL (180-914) H 08/19/17 06:00 Folate 14.43 ng/mL (5.90 - >24.8) 08/19/17 06:00 Urine Color YELLOW 08/21/17 18:05 Urine Clarity CLEAR (CLEAR) 08/21/17 18:05 Urine pH 6.5 PH (5.0-7.5) 08/21/17 18:05 Ur Specific [place] 1.020 (1.002-1.030) 08/21/17 18:05 Urine Protein TRACE mg/dL (NEGATIVE) 08/21/17 18:05 Urine Glucose (UA) NEGATIVE mg/dL (NEGATIVE) 08/21/17 18:05 Urine Ketones NEGATIVE mg/dL (NEGATIVE) 08/21/17 18:05 Urine Occult Blood NEGATIVE (NEGATIVE) 08/21/17 18:05 Urine Nitrite NEGATIVE (NEGATIVE) 08/21/17 18:05 Urine Bilirubin NEGATIVE (NEGATIVE) 08/21/17 18:05 Urine Urobilinogen 1 (NORMAL) E.U./dL (NORMAL) 08/21/17 18:05 Ur Leukocyte Esterase NEGATIVE (NEGATIVE) 08/21/17 18:05 Urine RBC None Seen /HPF (0-5) 08/21/17 18:05 Urine WBC 0-3 /HPF (0-3) 08/21/17 18:05 Ur Squamous Epith Cells RARE Squamous (<= Few) 08/21/17 18:05 Urine Bacteria None Seen /HPF (None Seen) 08/21/17 18:05 Urine Culture Comments NOT INDICATED 08/21/17 18:05 Last Dose Date 08/23/17 08/23/17 11:40 Last Dose Time 02:02 08/23/17 11:40 Vancomycin Trough 22.2 ug/mL (5.0-15.0) H 08/23/17 11:40 Blood Type A POSITIVE 08/24/17 10:41 Antibody Screen NEGATIVE 08/24/17 10:41 Crossmatch IS Only See Detail 08/24/17 10:41
[2017-08-25] MEDS: DULoxetine 30 MG CAPSULE PO SCH (21:09)
[2017-08-25] MEDS: diphenhydrAMINE ELIXIR 25 MG/10 ML UDC PO PRN (21:09)
[2017-08-25] MEDS: INSULIN GLARGINE 300 UNIT/3 ML PEN SUBQ SCH (21:12)
[2017-08-26] MEDS: SODIUM CHLORIDE FLUSH 0.9% 10 ML SYRINGE IVP SCH ×2 (07:53→11:46)
[2017-08-26 08:08] LABS: BASOPHILS # (AUTO) 0.1 10^3/uL (0.0-0.1); BASOPHILS % (AUTO) 0.8 %; EOSINOPHILS # (AUTO) 0.3 10^3/uL (0.0-0.7); EOSINOPHILS % (AUTO) 3.2 %; HGB - HEMOGLOBIN 9.8 g/dL (14.0-18.0); LYMPHOCYTES # (AUTO) 1.8 10^3/uL (1.5-3.5); LYMPHOCYTES % (AUTO) 21.2 %; MEAN CORPUSCULAR HEMOGLOBIN 29.9 pg (27.0-31.0); MEAN CORPUSCULAR HGB CONC 34.1 g/dL (32.0-36.0); MEAN CORPUSCULAR VOLUME 87.8 fL (80.0-94.0); MEAN PLATELET VOLUME 6.2 fL (7.4-11.4); MONOCYTES % (AUTO) 12.1 %; NEUTROPHILS # (AUTO) 5.3 10^3/uL (1.5-6.6); NEUTROPHILS % (AUTO) 62.7 %; PLT - PLATELET COUNT 275 10^3/uL (130-450); RED BLOOD COUNT 3.28 10^6/uL (4.70-6.10); WHITE BLOOD COUNT 8.4 x10^3/uL (4.8-10.8)
[2017-08-26] MEDS: INSULIN ASPART 300 UNIT/3 ML PEN SUBQ SCH ×2 (08:33→11:46)
[2017-08-26] MEDS: LOSARTAN 50 MG TABLET PO SCH (08:34)
[2017-08-26] MEDS: FERROUS SULFATE 325 MG TABLET PO SCH (08:34)
[2017-08-26] MEDS: CARVEDILOL 12.5 MG TABLET PO SCH (08:34)
[2017-08-26] MEDS: ASPIRIN EC 81 MG TABLET PO SCH (08:34)
[2017-08-26] MEDS: FAMOTIDINE 20 MG TABLET PO SCH (08:34)
[2017-08-26] MEDS: GABAPENTIN 400 MG CAPSULE PO SCH ×2 (08:34→13:08)
[2017-08-26] MEDS: SPIRONOLACTONE 25 MG TABLET PO SCH (08:34)
[2017-08-26] MEDS: amLODIPine 5 MG TABLET PO SCH (08:34)
[2017-08-26] MEDS: LORATADINE 10 MG TABLET PO SCH (08:35)
[2017-08-26] MEDS: POLYETHYLENE GLYCOL 3350 17 GM PACKET PO SCH (08:35)
[2017-08-26] MEDS: oxyCODONE ER 10 MG TABLET PO SCH (08:35)
[2017-08-26] MEDS: DOCUSATE SODIUM 250 MG CAPSULE PO SCH (08:35)
--- NOTE | 2017-08-26 09:09 | PROVIDER PROGRESS NOTE ---
Subjective - General Admit Date: 08/18/17 Procedure Date: 08/22/17 Post Op Days: 4 Procedure Performed: right BKA - Review of Systems Wound/Incisions: positive: Healing well Genitourinary: positive: Retention Musculoskeletal: positive: Leg pain Objective - Patient Data Reviewed Vital Signs: Yes Vital Signs: Vital Signs x48h Temp Pulse Resp BP Pulse Ox 08/26/17 08:55 36.6 C 79 12 130/67 95 08/26/17 04:05 36.9 C 83 18 145/75 H 97 Intake & Output: Intake and Output Totals x24h 08/24/17 08/25/17 08/26/17 23:59 23:59 23:59 Intake Total 2830 5 300 Output Total 3300 4050 400 Balance -470 - Lab Results Lab Results: 08/26/17 08:00 08/25/17 06:17 Other Lab Results: Lab Results x24hrs 08/26/17 08/26/17 08/25/17 Range/Units 08:00 07:46 20:50 WBC 8.4 (4.8-10.8) x10^3/uL RBC 3.28 L (4.70-6.10) 10^6/uL Hgb 9.8 L (14.0-18.0) g/dL Hct 28.8 L (42.0-52.0) % MCV 87.8 (80.0-94.0) fL MCH 29.9 (27.0-31.0) pg MCHC 34.1 (32.0-36.0) g/dL RDW 14.0 (12.0-15.0) % Plt Count 275 (130-450) 10^3/uL MPV 6.2 L (7.4-11.4) fL Neut # 5.3 (1.5-6.6) 10^3/uL Lymph # 1.8 (1.5-3.5) 10^3/uL [place] # 1.0 (0.0-1.0) 10^3/uL Eos # 0.3 (0.0-0.7) 10^3/uL Baso # 0.1 (0.0-0.1) 10^3/uL Absolute Nucleated RBC 0.01 x10^3/uL Nucleated RBC % 0.1 /100WBC POC Whole Bld Glucose 152 H 184 H (70 - 100) mg/dL 08/25/17 08/25/17 Range/Units 16:41 11:01 WBC (4.8-10.8) x10^3/uL RBC (4.70-6.10) 10^6/uL Hgb (14.0-18.0) g/dL Hct (42.0-52.0) % MCV (80.0-94.0) fL MCH (27.0-31.0) pg MCHC (32.0-36.0) g/dL RDW (12.0-15.0) % Plt Count (130-450) 10^3/uL MPV (7.4-11.4) fL Neut # (1.5-6.6) 10^3/uL Lymph # (1.5-3.5) 10^3/uL [place] # (0.0-1.0) 10^3/uL Eos # (0.0-0.7) 10^3/uL Baso # (0.0-0.1) 10^3/uL Absolute Nucleated RBC x10^3/uL Nucleated RBC % /100WBC POC Whole Bld Glucose 179 H 219 H (70 - 100) mg/dL - Current Medications Current Medications: Current Medications Generic Name Dose Route Start Last Admin Trade Name Freq PRN Reason Stop Dose Admin Acetaminophen 650 mg 08/18/17 20:07 08/25/17 09:56 Tylenol PO 650 mg Q4HR PRN Administration Pain 1 to 4 Amlodipine Besylate 5 mg 08/19/17 09:00 08/26/17 08:34 Norvasc PO 5 mg DAILY CATIE Administration Aspirin 81 mg 08/19/17 09:00 08/26/17 08:34 Ecotrin PO 81 mg DAILY CATIE Administration Atorvastatin Calcium 40 mg 08/19/17 09:00 08/25/17 09:59 Lipitor PO 40 mg DAILY CATIE Administration Carvedilol 25 mg 08/18/17 21:00 08/26/17 08:34 Coreg PO 25 mg BID ACTIE Administration Diphenhydramine HCl 12.5 mg 08/19/17 13:43 08/25/17 21:09 Benadryl Elixir PO 12.5 mg Q6HR PRN Administration ITCHING Docusate Sodium 250 - 500 mg 08/20/17 10:00 08/26/17 08:35 Colace 250mg Capsule PO 500 mg DAILY CATIE Administration Duloxetine HCl 60 mg 08/18/17 21:00 08/25/17 21:09 Cymbalta PO 60 mg QPM CATIE Administration Famotidine 20 mg 08/19/17 09:00 08/26/17 08:34 Pepcid PO 20 mg DAILY CATIE Administration Ferrous Sulfate 325 mg 08/24/17 09:00 08/26/17 08:34 Feosol PO 325 mg BIDWM CATIE Administration Gabapentin 800 mg 08/24/17 13:00 08/26/17 08:34 Neurontin PO 800 mg QID CATIE Administration Acetaminophen 100 mls @ 400 mls/hr 08/22/17 18:17 08/23/17 16:20 Ofirmev IV Infused Q6HR PRN Infusion PAIN Insulin Aspart 1 - 9 unit 08/22/17 17:00 08/26/17 08:33 Novolog SUBQ 1 unit 0800,1200,1700,2100 CATIE Administration Protocol Insulin Glargine 40 unit 08/20/17 23:00 08/25/17 21:12 Lantus Solostar SUBQ 40 unit QPM CATIE Administration Loratadine 10 mg 08/19/17 09:00 08/26/17 08:35 Claritin PO 10 mg DAILY CATIE Administration Losartan Potassium 50 mg 08/19/17 09:00 08/26/17 08:34 Cozaar PO 50 mg DAILY CATIE Administration Morphine Sulfate 4 mg 08/24/17 12:34 08/25/17 08:12 Morphine IVP 4 mg Q8H PRN Administration Pain 8 to 10 Oxycodone HCl 10 mg 08/19/17 14:53 08/25/17 15:57 Roxicodone PO 10 mg Q4HR PRN Administration PAIN Oxycodone HCl 30 mg 08/25/17 11:00 08/26/17 08:35 Oxycontin PO 30 mg BID CATIE Administration Polyethylene Glycol 17 gm 08/19/17 09:00 08/26/17 08:35 Miralax PO 17 gm DAILY CATIE Administration Saccharomyces Boulardii 250 mg 08/19/17 08:00 08/25/17 16:45 Florastor PO 250 mg BIDWM CATIE Administration Senna 8.6 - 17.2 mg 08/24/17 09:00 08/25/17 09:57 Senokot PO 8.6 mg DAILY CATIE Administration Sodium Chloride 10 ml 08/18/17 20:07 08/25/17 01:21 Normal Saline Flush 0.9% IVP 10 ml PRN PRN Administration NEEDED PER PROVIDER ORDERS Sodium Chloride 10 ml 08/19/17 01:00 08/26/17 07:53 Normal Saline Flush 0.9% IVP Not Given 0100,0900,1700 CATIE Spironolactone 25 mg 08/19/17 09:00 08/26/17 08:34 Aldactone PO 25 mg DAILY CATIE Administration - Physical Exam Wound/Incisions: positive: Healing well General Appearance: positive: No acute distress Skin: positive: Warm, Dry Neurologic/Psychiatric: positive: Oriented x3, CN's nml (2-12) Impression/Plan - Problem List Problem List: Pt is showing routine healing and resolution of s/s of infection Wound is "A" and dressing changed. Plan for d/c to [facility], and return to clinic in one week. Stump dressing to remain intact, clean, and dry. Pt to have ongoing PT for transfers.
--- NOTE | 2017-08-26 11:04 | Discharge Plan ---
"Discharge Plan for SNF / [facility] - DC Plan and Transition Orders Disposition: 03 SNF DC/Xfer Condition: Stable SNF Transition Orders: Admit to: [facility] under the care of Dr Calos Kovacs Discharge Diagnosis: 1) Osteomeyelitis of R foot, S/P right BKA 2) IDDM 3) Peripheral neuropathy 4) Morbid Obesity 5) Hx of COPD 6) Hx of Cor Pulmonale 7) Hx of CAD with stent 8) Hx of GERD 9) Anxiety w/ Hx of panic attacks 10) HTN 11) Anemia, iron deficiency 12) Code Status: Full Code Medicare Certification: I certify that Post Hospital custodial care is medically necessary on a continuing basis for any of the conditions for which she/he is receiving care during hospitalization. Notify PCP of admission and forward orders to primary provider for signature. Weight on admission and daily. Call PCP immediately if weight increases by 5 pounds or if patient develops dyspnea, chest pain/tightness or edema. House Bowel Program: Yes If no BM after 2 days, nurse may give M.O.M. 30ml PO PRN and /or ducolax Supp 1 WV and /or MIGUEL 250mg P.O., and/or senna 1-2 tabs PO. On day 3 nurse may give repeat above order until residents constipation is resolved. Immunizations: Annual Influenza Vaccine: Yes. (between Nov 30 and June 29.) Unless allergy or already given Two-Step PPD: Yes per [facility] [id number] or appropriate documentation of approved exceptions Treatments & Other Orders: DO NOT CHANGE DRESSING ON BKA STUMP Daily T and OT please Oxygen Orders: None Lab Tests or X-Rays Orders: None Orthopedic Orders: DO NOT CHANGE DRESSING ON BKA STUMP Medications: PLEASE REFER TO THE DISCHARGE MEDICATION LIST. Insulin Orders? Yes Diagnosis: Diabetes Initiate hypo and hyperglycemia protocols for BG <70 and BG >375. May check BG prn for signs/symptoms of dysglycemia. Frequency of BG checks: [AC/HS] Basal Insulin: Lantus 100 units / ml inject subq as follows: 40 U subq qpm Correction Insulin: - Select the type of insulin below [Choose: Novolog]100 units /ml insulin inject subq per orders indicate below [] LOW DOSE [X] MODERATE DOSE [] MODERATE/HIGH DOSE [] HIGH DOSE GB UNITS GB UNITS GB UNITS GB UNITS 61-140 0 UNITS 61-140 0 UNITS 61-140 0 UNITS 61-140 0 UNITS 141-175 1 UNITS 141-175 1 UNITS 141-175 2 UNITS 141-175 3 UNITS 176-225 2 UNITS 176-225 3 UNITS 176-225 4 UNITS 176-225 5 UNITS 226-275 3 UNITS 226-275 5 UNITS 226-275 6 UNITS 226-275 7 UNITS 276-325 4 UNITS 276-325 7 UNITS 276-325 8 UNITS 276-325 9 UNITS 326-375 5 UNITS 326-375 9 UNITS 326-375 10 UNITS 326-375 11 UNITS >375 CONTACT MD >375 CONTACT MD >375 CONTACT MD >375 CONTACT MD Allergies and Adverse Reactions: Allergies Allergy/AdvReac Type Severity Reaction Status Date / Time pregabalin [From Lyrica] Allergy Intermediate unknown Verified 05/18/17 19:13 simvastatin [From Zocor] Allergy Intermediate Nausea Verified 05/18/17 19:13 sulfamethoxazole Allergy Intermediate unknown Verified 05/18/17 19:13 [From Septra] trimethoprim [From Septra] Allergy Intermediate unknown Verified 05/18/17 19:13 tetracycline [Tetracycline] Allergy Rash Verified 05/18/17 19:13 - Medications New Prescriptions: amLODIPine [Norvasc] 5 mg PO DAILY #30 tablet Aspirin [Aspirin EC] 81 mg PO DAILY #30 tablet. Ferrous Sulfate 325 mg PO BID #60 tablet Gabapentin [Neurontin] 800 mg PO QID #120 capsule hydrOXYzine PAMOATE [Vistaril] 25 mg PO Q12H PRN #60 capsule PRN Reason: Itching Insulin Aspart [NovoLOG] 1 - 9 unit SUBQ 0800,1200,1700,2100 #2 pen Insulin Glargine [Lantus Solostar] 40 unit SUBQ QPM #2 pen Losartan [Cozaar] 50 mg PO DAILY #30 tablet oxyCODONE ER [OxyCONTIN] 30 mg PO BID PRN #60 tablet PRN Reason: Severe Pain Oxycodone HCl/Acetaminophen [Oxycodone-Acetaminophen 10-325] 1 tab PO TID PRN # 90 tablet PRN Reason: Pain Polyethylene Glycol 3350 [Miralax] 17 gm PO DAILY #30 packet Senna [Senokot] 8.6 mg PO DAILY #30 tablet - Diet Type: Diabetic (Carb-control 4 w/ evening snack) Liquids: Thin May have monthly special meal: Yes - Therapies | Activity Therapy: Evaluation | Treat if indicated: PT, OT Rehabilitation Potential: Maximize functional status Activity: Wt Bearing as Tolerated Weight Bearing: Pt has a new R BKA Extremities: NWBRLE Additional Instructions: See Dr Paulino in Clinic in 1 week."
[2017-08-26] MEDS: SACCHAROMYCES BOULARDII 250 MG CAPSULE PO SCH (11:46)
[2017-08-26] MEDS: SENNA 8.6 MG TABLET PO SCH (12:12)
[2017-08-26] MEDS ORDERED: BISACODYL 10 MG SUPP PR ONE (12:54)
[2017-08-26 13:13] VITALS: BP 117/53
--- NOTE | 2017-08-29 01:57 | DISCHARGE SUMMARY ---
Physician: Tiara Machado MD DATE OF ADMISSION: 08/18/2017 DATE OF DISCHARGE: 08/26/2017 HISTORY OF PRESENT ILLNESS: This is a 72-year-old white male with a history of diabetes on insulin, morbid obesity, fractured right foot and subsequent cellulitis as well as Charcot foot, who presented with pain on the right foot that was excruciating. He was admitted for management of diabetic cellulitis/osteomyelitis. HOSPITAL COURSE AND DISCHARGE DIAGNOSES 1. Osteomyelitis of right foot, status post right below-knee amputation. The patient had right foot x-rays which showed midfoot fracture and dislocation and excessive soft tissue swelling. MRI of the foot, tibia and fibula revealed evidence of osteomyelitis in the foot, but not extending up into the tibia or fibula.The patient had cultures drawn of blood, urine and wound and grew methicillin-resistant Staphylococcus aureus in the wound and two of two blood cultures. He was initially put on empiric iv antibiotics, then on Vancomycin. His other management was a right BKA, done by Dr Paulino of Orthopedics. Following this, he had an additional one day of antibiotic then stopped. He was on Florastor. The patient was transferred for rehab at [facility] for physical therapy and occupational therapy to deal with the new right BKA. 2. Insulin-dependent diabetes. The patient was on a carb-controlled diet, and insulin coverage and had good control. 3. Peripheral neuropathy. The patient had previously been on medications for peripheral neuropathy that was continued for management of his pain after surgery. 4. Morbid obesity. Intra-operatively, Anesthesia mentioned that he had apnea , which has never been evaluated. 5. History of chronic obstructive pulmonary disease. The patient was on p.r.n. inhalers. His respiratory status was stable with no exacerbations during this hospital course. 6. History of cor pulmonale. The patient had an Echocardiogram done on a prior admission showing right-sided enlargement, RV failure, which was managed with diuretics. He was transitioned from loop diuretics to spironolactone, which was successful in preventing edema of the non amputated leg. 7. History of coronary artery disease with stent. The patient had no complaints of angina or shortness of breath and his cardiac medications were continued. 8. History of gastroesophageal reflux disease. The patient's medications were continued. 9. Anxiety with history of panic attacks. The patient required his anxiolytics, especially postop, and this was continued throughout his course. 10. Hypertension. His medications were adjusted as needed. 11. Anemia, iron deficiency. Postoperatively, and because of IV fluids, his hemoglobin dropped to 7.3 two days before discharge, and he received 2 units of packed red blood cells and hemoglobin at discharge was 9.8. 12. Code status: FULL CODE. LABORATORY AND IMAGING: Reviewed and summarized above. ALLERGIES 1. PREGABALIN. 2. SIMVASTATIN. 3. SULFA. 4. TRIMETHOPRIM. 5. TETRACYCLINE. MEDICATIONS AT THE TIME OF TRANSFER 1. Ventolin inhaler p.r.n. 2. Norvasc 5 mg daily. 3. Baby aspirin daily. 4. Lipitor 40 mg q.p.m. 5. Coreg 25 mg b.i.d. 6. Cymbalta 60 mg q.p.m. 7. Iron sulfate 325 mg b.i.d. 8. Neurontin 800 mg q.i.d. 9. Vistaril 25 mg b.i.d. p.r.n. itching. 10. NovoLog insulin on a moderate sliding scale coverage. 11. Lantus insulin 40 units subcutaneous every evening. 12. Loratadine 10 mg daily. 13. Losartan 50 mg daily. 14. Sublingual nitroglycerin p.r.n. 15. Prilosec 20 mg daily. 16. OxyContin 30 mg b.i.d. p.r.n. 17. Tylenol with codeine t.i.d. p.r.n. pain. 18. MiraLAX 1 tablet daily. 19. Senokot daily. 20. Spironolactone 25 mg daily. PHYSICAL EXAMINATION AT DISCHARGE VITAL SIGNS: Blood pressure 117/53, pulse of 78 in sinus rhythm, afebrile, room air saturation 95%. HEENT: Unremarkable, except male-pattern baldness. NECK: Without JVD or carotid bruits. CHEST: Clear. HEART: Sounds normal. ABDOMEN: Obese with pannus. Cannot rule out organomegaly or ascites by clinical exam. EXTREMITIES: The left foot has venous stasis and no edema. The right foot has a BKA with a stump that is bandaged. NEUROLOGIC: Intact. FOLLOWUP: The patient is to see Dr. Paulino in one week in Orthopedic clinic. Followup with his PCP as per protocol at [facility]. His suspected sleep apnea needs to be evaluated and managed. CODE STATUS: FULL CODE. Time required to complete this entire discharge, dictation, SNF orders, medication orders: 60 minutes. TD: 08/28/2017 16:40 KEYANNA
== END 2017-08-26 14:34 | DRG 617 ==
LOC: ED 17:51 → MS2 20:08
PROVIDERS: ADMIT Internal Medicine; ATTEND Internal Medicine
PROC: 0Y6H0Z1 Detachment at Right Lower Leg, High, Open Approach (ICD-10-PCS; principal; 2017-08-23)
PROC: 30233N1 Transfusion of Nonautologous Red Blood Cells into Peripheral Vein, Percutaneous Approach (ICD-10-PCS; 2017-08-25)
DX: E11.69 Type 2 diabetes mellitus with other specified complication (principal); M86.9 Osteomyelitis, unspecified; Z68.41 Body mass index [BMI] 40.0-44.9, adult; L03.115 Cellulitis of right lower limb; L97.419 Non-pressure chronic ulcer of right heel and midfoot with unspecified severity; S92.301S Fracture of unspecified metatarsal bone(s), right foot, sequela; B95.62 Methicillin resistant Staphylococcus aureus infection as the cause of diseases classified elsewhere; E66.01 Morbid (severe) obesity due to excess calories; J44.9 Chronic obstructive pulmonary disease, unspecified; R35.1 Nocturia; I27.29 Other secondary pulmonary hypertension; N17.9 Acute kidney failure, unspecified; M79.7 Fibromyalgia; G89.29 Other chronic pain; M54.9 Dorsalgia, unspecified; D50.9 Iron deficiency anemia, unspecified; E11.621 Type 2 diabetes mellitus with foot ulcer; E11.610 Type 2 diabetes mellitus with diabetic neuropathic arthropathy; E11.42 Type 2 diabetes mellitus with diabetic polyneuropathy; E11.649 Type 2 diabetes mellitus with hypoglycemia without coma; E11.620 Type 2 diabetes mellitus with diabetic dermatitis; I10 Essential (primary) hypertension; I25.10 Atherosclerotic heart disease of native coronary artery without angina pectoris; E78.00 Pure hypercholesterolemia, unspecified; R35.0 Frequency of micturition; K21.9 Gastro-esophageal reflux disease without esophagitis; F41.0 Panic disorder [episodic paroxysmal anxiety]; Z79.82 Long term (current) use of aspirin; Z79.51 Long term (current) use of inhaled steroids; Z79.4 Long term (current) use of insulin; Z79.891 Long term (current) use of opiate analgesic; Z79.52 Long term (current) use of systemic steroids; Z79.899 Other long term (current) drug therapy; Z95.5 Presence of coronary angioplasty implant and graft; I25.2 Old myocardial infarction; Z87.891 Personal history of nicotine dependence; Z91.19 Patient's noncompliance with other medical treatment and regimen
CPT/HCPCS: 36415; 80048; 80053; 81001; 82270; 82607; 82728; 82746; 83036; 83540; 83605; 83690; 84466; 85014; 85025; 85651; 86140; 86850; 86900; 86901; 86920; 87040; 87070; 87086; 87181; 87205; 87640; 93005; 96365; 96375; 99283; 99284

== ENCOUNTER 2017-09-09 08:00 | Outpatient (CLI) | payer MEDICARE, OTHER ==
[2017-09-09 17:10] LABS: BASOPHILS # (AUTO) 0.1 10^3/uL (0.0-0.1); BASOPHILS % (AUTO) 1.2 %; EOSINOPHILS # (AUTO) 0.2 10^3/uL (0.0-0.7); EOSINOPHILS % (AUTO) 3.2 %; HGB - HEMOGLOBIN 10.2 g/dL (14.0-18.0); LYMPHOCYTES # (AUTO) 1.3 10^3/uL (1.5-3.5); MEAN CORPUSCULAR HEMOGLOBIN 30.7 pg (27.0-31.0); MEAN CORPUSCULAR HGB CONC 34.5 g/dL (32.0-36.0); MEAN CORPUSCULAR VOLUME 89.1 fL (80.0-94.0); MEAN PLATELET VOLUME 8.3 fL (7.4-11.4); MONOCYTES # (AUTO) 0.9 10^3/uL (0.0-1.0); MONOCYTES % (AUTO) 14.4 %; NEUTROPHILS # (AUTO) 3.5 10^3/uL (1.5-6.6); NEUTROPHILS % (AUTO) 59.2 %; PLT - PLATELET COUNT 217 10^3/uL (130-450); RED BLOOD COUNT 3.31 10^6/uL (4.70-6.10); RED CELL DISTRIBUTION WIDTH 14.5 % (12.0-15.0); WHITE BLOOD COUNT 5.9 x10^3/uL (4.8-10.8)
[2017-09-09 17:12] LABS: ALBUMIN 3.2 g/dL (3.2-5.5); ALBUMIN/GLOBULIN RATIO 0.7 (1.0-2.2); BILIRUBIN,TOTAL 0.7 mg/dL (0.2-1.0); CALCIUM 8.8 mg/dL (8.5-10.3); CREATININE 1.4 mg/dL (0.6-1.2); TOTAL PROTEIN 7.8 g/dL (6.7-8.2)
[2017-09-09 17:51] LABS: HB2 TOTAL 10.7 g/dL; HEMOGLOBIN A1C 0.54 g/dL; HEMOGLOBIN A1C % 6.8 % (4.6-6.2)
== END 2017-09-09 08:01 | disposition home or self-care (01) ==
LOC: LAB.R 08:00
DX: R79.89 Other specified abnormal findings of blood chemistry (principal); E11.40 Type 2 diabetes mellitus with diabetic neuropathy, unspecified; I10 Essential (primary) hypertension; B95.62 Methicillin resistant Staphylococcus aureus infection as the cause of diseases classified elsewhere; R68.89 Other general symptoms and signs
CPT/HCPCS: 80053; 83036; 85025

== ENCOUNTER 2017-11-15 18:17 | Outpatient (CLI) | payer MEDICARE, OTHER ==
[2017-11-15 19:33] LABS: CALCIUM 9.1 mg/dL (8.5-10.3); CREATININE 1.3 mg/dL (0.6-1.2)
== END 2017-11-15 18:18 | disposition home or self-care (01) ==
LOC: LAB.R 18:17
DX: E11.40 Type 2 diabetes mellitus with diabetic neuropathy, unspecified (principal)
CPT/HCPCS: 80048

== ENCOUNTER 2017-12-30 14:17 | Emergency (ER) | payer MEDICARE, OTHER ==
[2017-12-30 14:24] VITALS: BP 149/88
[2017-12-30] MEDS ORDERED: CLINDAMYCIN 150 MG CAPSULE PO STA (15:07)
--- NOTE | 2017-12-30 15:10 | ED Physician Documentation ---
PD HPI LOWER EXT INJURY - Stated complaint Stated Complaint: BLISTER ON TOE - Chief complaint Chief Complaint: Ext Problem - History obtained from History obtained from: Patient - History of Present Illness PD HPI LOW EXT INJURY LOCATION: Other (72-year-old gentleman with history of diabetic neuropathy, vascular disease. History of MRSA infection in the right foot causing a right BKA presents with a blister he noted on the left great toe today. No fevers or chills. Minimal pain. No injury.) Review of Systems Constitutional: denies: Fever, Chills Cardiac: denies: Chest pain / pressure, Palpitations Respiratory: denies: Dyspnea, Cough PD PAST MEDICAL HISTORY - Past Medical History Cardiovascular: Hypertension, High cholesterol, Coronary artery disease, Peripheral Vascular Disease, [place] Respiratory: COPD, Shortness of breath Neuro: Peripheral neuropathy Endocrine/Autoimmune: Type 2 diabetes GI: GERD : Nocturia, Frequency, Kidney stones Psych: Anxiety, Panic attacks Musculoskeletal: Fibromyalgia, Chronic back pain - Past Surgical History Past Surgical History: Yes Cardiovascular: Coronary stent HEENT: Cataracts - Present Medications Home Medications: Ambulatory Orders Medication Instructions Recorded Confirmed RX: Loratadine 10 mg PO DAILY 11/07/12 08/19/17 Aspirin [Aspirin EC] 81 mg PO DAILY #30 tablet. 08/26/17 RX: Atorvastatin [Lipitor] 40 mg PO DAILY PM #30 08/26/17 08/19/17 RX: Carvedilol [Coreg] 25 mg PO BID #60 08/26/17 08/19/17 RX: Gabapentin [Neurontin] 800 mg PO QID #120 capsule 08/26/17 RX: Insulin Glargine [Lantus 40 unit SUBQ QPM #2 pen 08/26/17 Solostar] RX: Losartan [Cozaar] 50 mg PO DAILY #30 tablet 08/26/17 RX: Omeprazole [PriLOSEC] 20 mg PO DAILY #30 08/26/17 08/19/17 RX: Polyethylene Glycol 3350 17 gm PO DAILY #30 packet 08/26/17 [Miralax] RX: Senna [Senokot] 8.6 mg PO DAILY #30 tablet 08/26/17 RX: Spironolactone [Aldactone] 25 mg PO DAILY #30 tablet 18 08/19/17 RX: amLODIPine [Norvasc] 5 mg PO DAILY #30 tablet 08/26/17 Clindamycin HCl [Clindamycin 150MG 2 tab PO QID #80 capsule 12/30/17 CAP] RX: Aspirin [Adult Aspirin Regimen] 1 tab PO DAILY 12/30/17 12/30/17 RX: Furosemide 1 tab PO BID 12/30/17 12/30/17 RX: amLODIPine [Norvasc] 1 tab PO DAILY 12/30/17 12/30/17 - Allergies Allergies/Adverse Reactions: Allergies Allergy/AdvReac Type Severity Reaction Status Date / Time pregabalin [From Lyrica] Allergy Intermediate unknown Verified 12/30/17 14:24 simvastatin [From Zocor] Allergy Intermediate Nausea Verified 12/30/17 14:24 sulfamethoxazole Allergy Intermediate unknown Verified 12/30/17 14:24 [From Septra] trimethoprim [From Septra] Allergy Intermediate unknown Verified 12/30/17 14:24 tetracycline [Tetracycline] Allergy Rash Verified 12/30/17 14:24 - Social History Does the pt smoke?: No Smoking Status: Never smoker Does the pt drink ETOH?: Yes Does the pt have substance abuse?: Yes - Immunizations Immunizations are current?: Yes - POLST Patient has POLST: No POLST Status: Full Code PD ED PE NORMAL - Vitals Vital signs reviewed: Yes - General General: Alert and oriented X 3, No acute distress - Extremities Extremities: Other (On the medial side of the left great toe there is a 2 cm shallow blister which was sharply debrided during examination and a ulcer was taken from the base. There is no active acute cellulitis. He does have chronic venous stasis changes of the left leg which he says are not any different than any other day.) - Neuro Neuro: Alert and oriented X 3, Normal speech Results - Vitals Vitals: Vital Signs - 24 hr 12/30/17 14:21 Temperature 36.3 C L Heart Rate 84 Respiratory 18 Rate Blood Pressure 149/88 H O2 Saturation 98 Oxygen O2 Source Room air PD MEDICAL DECISION MAKING - ED course ED course: This is a 72-year-old gentleman with a diabetic foot infection. It does not look too bad at this juncture but of course he has the possibility to progress. A trial of outpatient antibiotics is warranted. Previous cultures and allergies were reviewed and clindamycin was chosen. - Sepsis Event Vital Signs: Vital Signs - 24 hr 12/30/17 14:21 Temperature 36.3 C L Heart Rate 84 Respiratory 18 Rate Blood Pressure 149/88 H O2 Saturation 98 Oxygen O2 Source Room air Departure - Departure Disposition: Home, Self Care Clinical Impression: Diabetic infection of left foot Condition: Good Record reviewed to determine appropriate education?: Yes Instructions: Diabetes Treat Minor Foot Infecs Prescriptions: Clindamycin HCl [Clindamycin 150MG CAP] 2 tab PO QID #80 capsule Comments: Follow-up with your dampener operator tomorrow and your primary care physician on Saturday. Return if worse or if you feel ill or feverish. Discharge Date/Time: 12/30/17 15:35
== END 2017-12-30 15:35 | disposition home or self-care (01) ==
LOC: ED 14:17
DX: L08.89 Other specified local infections of the skin and subcutaneous tissue (principal); E11.51 Type 2 diabetes mellitus with diabetic peripheral angiopathy without gangrene; I10 Essential (primary) hypertension; I25.10 Atherosclerotic heart disease of native coronary artery without angina pectoris; I25.2 Old myocardial infarction; E78.00 Pure hypercholesterolemia, unspecified; Z79.82 Long term (current) use of aspirin; Z79.4 Long term (current) use of insulin; Z89.519 Acquired absence of unspecified leg below knee; Z86.14 Personal history of Methicillin resistant Staphylococcus aureus infection; Z95.5 Presence of coronary angioplasty implant and graft
CPT/HCPCS: 87070; 87181; 87205; 99283; A9270

== ENCOUNTER 2018-01-28 14:45 | Outpatient (CLI) | payer MEDICARE, OTHER ==
--- NOTE | 2018-01-29 15:07 | Ultrasound Report ---
Reason: CHRONIC DIASTOLIC (CONGESTIVE) HEART FAILURE Procedure Date: 01/28/2018 Accession Number: [id number] / [id number] Procedure: US - Duplex Lwr Ext Arterial LT CPT Code: FULL RESULT: EXAM: LEFT LOWER EXTREMITY ARTERIAL DOPPLER ULTRASOUND EXAM DATE: 01/28/2018 04:30 PM. CLINICAL HISTORY: Chronic diastolic (congestive) heart failure. History of peripheral vascular disease. Type 2 diabetes. Hypertension. COMPARISON: None. TECHNIQUE: Real-time sonographic vascular imaging was performed by the town justice, utilizing color-flow, Doppler flow, and spectral analysis. Multiple customer service representative teller static images were saved for review. FINDINGS: Focal calcified plaque within left popliteal artery. Left Leg: ORACLE DATABASE ARCHITECT: PSV 104 cm/sec. Triphasic waveform. PSFA: PSV 98 cm/sec. Triphasic waveform. MSFA: PSV 82 cm/sec. Triphasic waveform. DSFA: PSV 88 cm/sec. Triphasic waveform. PFA: PSV 35 cm/sec. Triphasic waveform. POP: PSV 54 increasing to 142 cm/sec. Biphasic waveform. SPENCER: PSV 59 cm/sec. Triphasic waveform. AIRCRAFT WORKER: PSV 53 cm/sec. Triphasic waveform. PER: PSV 71 cm/sec. Triphasic waveform. DPA: PSV 56 cm/sec. Triphasic waveform. IMPRESSION: Focal short segment 50-75 percent stenosis within left popliteal artery. RADIA
== END 2018-01-28 14:46 | disposition home or self-care (01) ==
LOC: DI 14:45
PROVIDERS: ATTEND Internal Medicine Cardiovascular Disease
DX: I70.202 Unspecified atherosclerosis of native arteries of extremities, left leg (principal); I73.9 Peripheral vascular disease, unspecified; I50.32 Chronic diastolic (congestive) heart failure

== ENCOUNTER 2018-06-01 18:40 | Outpatient (CLI) | payer MEDICARE, OTHER | END 2018-06-01 18:41 | disposition critical access hospital (66) | LOC: EMS 18:40 | PROVIDERS: ATTEND Surgery | DX: F41.9 Anxiety disorder, unspecified (principal) | CPT/HCPCS: A0425; A0429 ==

== ENCOUNTER 2018-06-01 19:00 | Emergency (ER) | payer MEDICARE, OTHER ==
[2018-06-01] MEDS ORDERED: LORazepam 1 MG TABLET PO STA (19:13)
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
[2018-06-01] MEDS ORDERED: LORazepam 0.5 MG TABLET ONE (19:33)
[2018-06-01 19:45] VITALS: BP 162/100
== END 2018-06-01 19:55 | disposition home or self-care (01) ==
LOC: EDUNIT# → ED 19:00
DX: F41.0 Panic disorder [episodic paroxysmal anxiety] (principal); I10 Essential (primary) hypertension; E78.00 Pure hypercholesterolemia, unspecified; I25.10 Atherosclerotic heart disease of native coronary artery without angina pectoris; E11.51 Type 2 diabetes mellitus with diabetic peripheral angiopathy without gangrene; Z79.4 Long term (current) use of insulin; Z79.82 Long term (current) use of aspirin; Z87.891 Personal history of nicotine dependence; Z95.5 Presence of coronary angioplasty implant and graft
CPT/HCPCS: 93005; 99283; A9270; J8499

== ENCOUNTER 2018-07-29 13:03 | Outpatient (CLI) | payer MEDICARE, OTHER ==
--- NOTE | 2018-07-30 15:37 | Ultrasound Report ---
Reason: ATHEROSCLEROSIS OF [place] CORONARY ARTERY OF NATIV Procedure Date: 07/29/2018 Accession Number: [id number] / [id number] Procedure: US - Duplex Lwr Ext Arterial Bilat CPT Code: FULL RESULT: EXAM: BILATERAL LOWER EXTREMITY ARTERIAL DOPPLER ULTRASOUND. EXAM DATE: 07/29/2018 02:43 PM. CLINICAL HISTORY: Claudication, atherosclerotic peripheral vascular disease. Diabetes, congestive failure. COMPARISON: 01/28/2018. TECHNIQUE: Real-time sonographic vascular imaging was performed by the door maker, utilizing color-flow, Doppler flow, and spectral analysis. Multiple contact representative static images were saved for review. FINDINGS: RIGHT: CARD MOUNTER: 124 cm/sec. Triphasic waveform. SFA Proximal: 111 cm/sec. Triphasic waveform. SFA Mid: 83 cm/sec. Triphasic waveform. SFA Distal: 59 cm/sec. Triphasic waveform. Profunda: 71 cm/sec. Biphasic waveform. Popliteal: 55 cm/sec. Triphasic waveform. LEFT: CARD MOUNTER: 118 cm/sec. Triphasic waveform. SFA Proximal: 113 cm/sec. Triphasic waveform. SFA Mid: 96 cm/sec. Triphasic waveform. SFA Distal: 125 cm/sec. Biphasic waveform. Profunda: 68 cm/sec. Biphasic waveform. Popliteal: 123 cm/sec. Biphasic waveform. SPENCER Mid: 62 cm/sec. Biphasic waveform. COAT ROOM ATTENDANT Mid: 20 cm/sec. Biphasic waveform. Peroneal Artery Mid: 28 cm/sec. Biphasic waveform. Dorsalis Pedis: 70 cm/sec. Triphasic waveform. IMPRESSION: Short segment moderate stenosis left popliteal artery decreased in peak systolic velocity compared with 01/28/2018, currently 123 cm/s, previously 142 cm/s. RADIA
== END 2018-07-29 13:04 | disposition home or self-care (01) ==
LOC: DI 13:03
PROVIDERS: ATTEND Internal Medicine Cardiovascular Disease
DX: I70.202 Unspecified atherosclerosis of native arteries of extremities, left leg (principal)
CPT/HCPCS: 93925

== ENCOUNTER 2018-10-12 10:37 | Outpatient (CLI) | payer MEDICARE, OTHER | END 2018-10-12 10:38 | disposition critical access hospital (66) | LOC: EMS 10:37 | PROVIDERS: ATTEND Surgery | DX: R09.89 Other specified symptoms and signs involving the circulatory and respiratory systems (principal); R51 Headache | CPT/HCPCS: A0425; A0427 ==

== ENCOUNTER 2018-10-12 10:58 | Emergency (ER) | payer MEDICARE, OTHER ==
[2018-10-12] MEDS ORDERED: SODIUM CHLORIDE 0.9% 1,000 ML IV ONE ×2 (11:11→12:30)
--- NOTE | 2018-10-12 11:14 | ED Physician Documentation ---
History of Present Illness - Stated complaint Stated Complaint: HYPOTENSIVE - Chief complaint Chief Complaint: General - History obtained from History obtained from: Patient, EMS - History of Present Illness Timing: Today - Additonal information Additional information: 73-year-old male with a history of hypertension took his antihypertensive medication this morning and had the usual sensation of low blood pressure with some fading of his vision and this normally will resolve and when it did not resolve this morning he called the ambulance. He has been given an infusion of saline 300 mL's prior to arrival here and comes in with a blood pressure of 108 systolic. Review of Systems Constitutional: denies: Fever Eyes: denies: Decreased vision Ears: denies: Ear pain Nose: denies: Congestion Throat: denies: Oral lesions / sores, Sore throat Cardiac: denies: Chest pain / pressure, Palpitations Respiratory: denies: Dyspnea, Cough GI: denies: Abdominal Pain, Nausea, Vomiting : denies: Dysuria, Frequency PD PAST MEDICAL HISTORY - Past Medical History Cardiovascular: Hypertension, High cholesterol, Coronary artery disease, Peripheral Vascular Disease, [place] Respiratory: COPD, Shortness of breath Neuro: Peripheral neuropathy Endocrine/Autoimmune: Type 2 diabetes GI: GERD : Nocturia, Frequency, Kidney stones Psych: Anxiety, Panic attacks Musculoskeletal: Fibromyalgia, Chronic back pain - Past Surgical History Past Surgical History: Yes Ortho: Amputation Cardiovascular: Coronary stent HEENT: Cataracts - Present Medications Home Medications: Ambulatory Orders Medication Instructions Recorded Confirmed Loratadine 10 mg PO DAILY 11/07/12 09/30/18 Aspirin [Aspirin EC] 81 mg PO DAILY #30 tablet. 08/26/17 09/30/18 Atorvastatin [Lipitor] 40 mg PO DAILY PM #30 08/26/17 09/30/18 Carvedilol [Coreg] 25 mg PO BID #60 08/26/17 09/30/18 Insulin Glargine [Lantus Solostar] 40 unit SUBQ QPM #2 pen 08/26/17 09/30/18 Omeprazole [PriLOSEC] 20 mg PO DAILY #30 08/26/17 09/30/18 Spironolactone [Aldactone] 25 mg PO DAILY #30 tablet 08/26/17 09/30/18 Furosemide 1 tab PO BID 12/30/17 09/30/18 Gabapentin [Neurontin] 300 mg PO QID 06/01/18 09/30/18 Losartan [Cozaar] 40 mg PO DAILY 06/01/18 09/30/18 - Allergies Allergies/Adverse Reactions: Allergies Allergy/AdvReac Type Severity Reaction Status Date / Time pregabalin [From Lyrica] Allergy Intermediate unknown Verified 10/12/18 11:06 simvastatin [From Zocor] Allergy Intermediate Nausea Verified 10/12/18 11:06 sulfamethoxazole Allergy Intermediate unknown Verified 10/12/18 11:06 [From Septra] trimethoprim [From Septra] Allergy Intermediate unknown Verified 10/12/18 11:06 tetracycline [Tetracycline] Allergy Rash Verified 10/12/18 11:06 - Social History Does the pt smoke?: No Smoking Status: Former smoker Does the pt drink ETOH?: Yes Does the pt have substance abuse?: Yes - Immunizations Immunizations are current?: Yes - POLST Patient has POLST: No POLST Status: Full Code PD ED PE NORMAL - Vitals Vital signs reviewed: Yes (normal ) - General General: Alert and oriented X 3, No acute distress, Well developed/nourished - HEENT HEENT: Atraumatic, PERRL - Neck Neck: Supple, no meningeal sign - Cardiac Cardiac: RRR, No murmur - Respiratory Respiratory: No respiratory distress, Clear bilaterally - Abdomen Abdomen: Soft, Non tender, Other (obese) - Back Back: No CVA TTP, No spinal TTP - Derm Derm: Normal color, Warm and dry, No rash - Extremities Extremities: No deformity, No edema, Other (There 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 There is no edema today ) - Neuro Neuro: Alert and oriented X 3, french binder 2-12 intact, No motor deficit, No sensory deficit, Normal speech Eye Opening: Spontaneous Motor: Obeys Commands Verbal: Oriented GCS Score: 15 - Psych Psych: Normal mood, Normal affect Results - Vitals Vitals: Vital Signs - 24 hr 10/12/18 10/12/18 10/12/18 11:01 11:13 13:55 Temperature 36.6 C Heart Rate 95 93 96 Respiratory 20 20 17 Rate Blood Pressure 108/63 100/66 154/76 H O2 Saturation 96 97 99 10/12/18 16:06 Temperature Heart Rate 91 Respiratory 20 Rate Blood Pressure 140/77 H O2 Saturation 97 Oxygen O2 Source Room air - EKG (time done) 1132 Rate: Rate (enter#) (93) Rhythm: NSR Other comments: Other comments (early transition ) Compare to prior EKG: Unchanged from prior EKG (SPT 06-01-2018 no changes ) - Labs Labs: Laboratory Tests 10/12/18 10/12/18 10/12/18 11:35 11:35 11:35 WBC 7.3 RBC 3.17 L Hgb 10.7 L Hct 31.8 L MCV 100.3 H MCH 33.8 H MCHC 33.6 RDW 14.0 Plt Count 130 MPV 10.2 Neut # (Auto) 4.6 Lymph # (Auto) 1.6 [place] # (Auto) 0.8 Eos # (Auto) 0.1 Baso # (Auto) 0.1 Absolute Nucleated RBC 0.00 Nucleated RBC % 0.0 Sodium 138 Potassium 4.6 Chloride 104 Carbon Dioxide 19 L Anion Gap 15.0 H BUN 49 H Creatinine 2.2 H Estimated GFR (MDRD) 29 L Glucose 232 H Lactic Acid Calcium 8.6 Total Bilirubin 1.0 AST 39 ALT 50 Alkaline Phosphatase 69 Troponin I < 0.04 B-Natriuretic Peptide Total Protein 6.4 L Albumin 3.0 L Globulin 3.4 Albumin/Globulin Ratio 0.9 L Lipase 39 Urine Color Urine Clarity Urine pH Ur Specific [place] Urine Protein Urine Glucose (UA) Urine Ketones Urine Occult Blood Urine Nitrite Urine Bilirubin Urine Urobilinogen Ur Leukocyte Esterase Ur Microscopic Review Urine Culture Comments 10/12/18 10/12/18 10/12/18 11:35 11:35 12:25 WBC RBC Hgb Hct MCV MCH MCHC RDW Plt Count MPV Neut # (Auto) Lymph # (Auto) [place] # (Auto) Eos # (Auto) Baso # (Auto) Absolute Nucleated RBC Nucleated RBC % Sodium Potassium Chloride Carbon Dioxide Anion Gap BUN Creatinine Estimated GFR (MDRD) Glucose Lactic Acid 2.8 H Calcium Total Bilirubin AST ALT Alkaline Phosphatase Troponin I B-Natriuretic Peptide 15 Total Protein Albumin Globulin Albumin/Globulin Ratio Lipase Urine Color YELLOW Urine Clarity CLEAR Urine pH 6.0 Ur Specific [place] <=1.005 Urine Protein TRACE Urine Glucose (UA) 100 H Urine Ketones NEGATIVE Urine Occult Blood NEGATIVE Urine Nitrite NEGATIVE Urine Bilirubin NEGATIVE Urine Urobilinogen 0.2 (NORMAL) Ur Leukocyte Esterase NEGATIVE Ur Microscopic Review NOT INDICATED Urine Culture Comments NOT INDICATED 10/12/18 14:45 WBC RBC Hgb Hct MCV MCH MCHC RDW Plt Count MPV Neut # (Auto) Lymph # (Auto) [place] # (Auto) Eos # (Auto) Baso # (Auto) Absolute Nucleated RBC Nucleated RBC % Sodium Potassium Chloride Carbon Dioxide Anion Gap BUN Creatinine Estimated GFR (MDRD) Glucose Lactic Acid 1.1 Calcium Total Bilirubin AST ALT Alkaline Phosphatase Troponin I B-Natriuretic Peptide Total Protein Albumin Globulin Albumin/Globulin Ratio Lipase Urine Color Urine Clarity Urine pH Ur Specific [place] Urine Protein Urine Glucose (UA) Urine Ketones Urine Occult Blood Urine Nitrite Urine Bilirubin Urine Urobilinogen Ur Leukocyte Esterase Ur Microscopic Review Urine Culture Comments - Rads (name of study) cxr Radiology: Prelim report reviewed (Impression: Focal nodule in the left mid hemithorax measuring 2.2 centimeters, new since prior. Further evaluation to be considered on noncontrast chest CT), EMP read indepedently, See rad report CT chest Radiology: Prelim report reviewed (Impression: 1. No suspicious lung nodules are seen. The opacity seen on corresponding chest x-ray corresponds to a healing fracture of the posterior left eighth rib. [address] process. 3 heart size is within normal limits. There are coronary artery and aortic valve calcifications. 4 There is hepatic steatosis.), EMP read indepedently, See rad report PD MEDICAL DECISION MAKING - ED course Complexity details: reviewed old records, reviewed results, re-evaluated patient, considered differential, d/w patient, d/w family ED course: 73-year-old diabetic male with the chief complaint of weakness is found to be dehydrated he is hydrated his lactate improved from 2.8 to 1.1 and he feels well. He is prepared for discharge and after review of his chest x-ray he is sent for a non-contrast Chest CT and this is without the expected abnormality. He is discharged to home improved. Departure - Departure Disposition: 01 Home, Self Care Clinical Impression: Dehydration Condition: Stable Instructions: ED Dehydration Follow-Up: Valeria Cabrales MD [Primary Care Provider] -
[2018-10-12 11:44] LABS: BASOPHILS # (AUTO) 0.1 10^3/uL (0.0-0.1); BASOPHILS % (AUTO) 0.7 %; EOSINOPHILS # (AUTO) 0.1 10^3/uL (0.0-0.7); HGB - HEMOGLOBIN 10.7 g/dL (14.0-18.0); LYMPHOCYTES # (AUTO) 1.6 10^3/uL (1.5-3.5); LYMPHOCYTES % (AUTO) 22.1 %; MEAN CORPUSCULAR HEMOGLOBIN 33.8 pg (27.0-31.0); MEAN CORPUSCULAR HGB CONC 33.6 g/dL (32.0-36.0); MEAN CORPUSCULAR VOLUME 100.3 fL (80.0-94.0); MEAN PLATELET VOLUME 10.2 fL (7.4-11.4); MONOCYTES # (AUTO) 0.8 10^3/uL (0.0-1.0); MONOCYTES % (AUTO) 11.3 %; NEUTROPHILS # (AUTO) 4.6 10^3/uL (1.5-6.6); NEUTROPHILS % (AUTO) 63.3 %; PLT - PLATELET COUNT 130 10^3/uL (130-450); RED BLOOD COUNT 3.17 10^6/uL (4.70-6.10); WHITE BLOOD COUNT 7.3 x10^3/uL (4.8-10.8)
[2018-10-12 11:55] LABS: ALBUMIN/GLOBULIN RATIO 0.9 (1.0-2.2); CALCIUM 8.6 mg/dL (8.5-10.3); CREATININE 2.2 mg/dL (0.6-1.2); TOTAL PROTEIN 6.4 g/dL (6.7-8.2)
[2018-10-12 12:30] LABS: BILIRUBIN,URINE NEGATIVE (NEGATIVE); GLUCOSE, URINE (UA) 100 mg/dL (NEGATIVE); KETONES,URINE (UA) NEGATIVE (NEGATIVE); LEUKOCYTE ESTERASE, URINE NEGATIVE (NEGATIVE); NITRITE,URINE NEGATIVE (NEGATIVE); OCCULT BLOOD,URINE NEGATIVE (NEGATIVE); PROTEIN,URINE TRACE mg/dL (NEGATIVE); UROBILINOGEN,URINE 0.2 (NORMAL) E.U./dL (NORMAL)
[2018-10-12 12:31] LABS: CLARITY,URINE CLEAR (CLEAR)
--- NOTE | 2018-10-12 14:11 | XRAY Report ---
Reason: chest pain Procedure Date: 10/12/2018 Accession Number: [id number] / [id number] Procedure: XR - Chest 1 View X-Ray CPT Code: 57329 FULL RESULT: EXAM: CHEST RADIOGRAPHY EXAM DATE: 10/12/2018 12:58 PM. CLINICAL HISTORY: Chest pain. COMPARISON: CHEST 1 VIEW 05/18/2017 8:42 PM CHEST ANGIO 05/19/2017 6:16 AM. TECHNIQUE: 1 view. FINDINGS: Lungs/Pleura: A focal nodule is seen in the left mid hemithorax, measuring 2.2 cm. No pleural effusion. No pneumothorax. Mediastinum: Within exam limitations, the cardiomediastinal contour is normal. Other: None. IMPRESSION: A focal nodule in left mid hemithorax measuring 2.2 cm, new since prior. Further evaluation to be considered on a noncontrast chest CT. RADIA
[2018-10-12 16:11] VITALS: BP 140/77
--- NOTE | 2018-10-12 16:24 | CT Report ---
Reason: 2.2 cm nodule in the left chest Procedure Date: 10/12/2018 Accession Number: [id number] / [id number] Procedure: CT - CHEST WO CPT Code: FULL RESULT: EXAM: CT CHEST EXAM DATE: 10/12/2018 03:42 PM. CLINICAL HISTORY: Lung nodule COMPARISONS: CHEST ANGIO 05/19/2017 6:16 AM CHEST 1 VIEW 10/12/2018 12:44 PM. TECHNIQUE: Routine helical CT imaging was performed through the chest. IV contrast: None. Reconstructions: Coronal and sagittal. In accordance with CT protocol optimization, one or more of the following dose reduction techniques were utilized for this exam: automated exposure control, adjustment of mA and/or KV based on patient size, or use of iterative reconstructive technique. FINDINGS: Lungs/Pleura: There is no consolidation or effusion. No suspicious noncalcified nodules are seen. There is no evidence of subpleural reticulation or architectural distortion. No central airway abnormalities. No pneumothorax. Mediastinum: Heart size is within normal limits. There are no enlarged axillary, supraclavicular, mediastinal, or hilar lymph nodes. Bones: There is a remote fracture through the left eighth rib. This corresponds to the opacity seen on radiograph. Visualized Abdomen: There is hepatic steatosis. The visualized portions of the upper abdominal organs demonstrate no acute abnormalities. Other: None. IMPRESSION: 1. No suspicious lung nodules are seen. The opacity seen on corresponding chest x-ray corresponds to a healing fracture of the posterior left eighth rib. 2. No acute pulmonary CT process. 3. Heart size is within normal limits. There are coronary artery and aortic valve calcifications. 4. There is hepatic steatosis. RADIA
== END 2018-10-12 16:49 | disposition home or self-care (01) ==
LOC: EDUNIT# → ED 10:58
DX: E86.0 Dehydration (principal); I10 Essential (primary) hypertension; E11.42 Type 2 diabetes mellitus with diabetic polyneuropathy; E11.51 Type 2 diabetes mellitus with diabetic peripheral angiopathy without gangrene; Z79.4 Long term (current) use of insulin; Z79.82 Long term (current) use of aspirin; Z87.891 Personal history of nicotine dependence; Z89.519 Acquired absence of unspecified leg below knee
CPT/HCPCS: 36415; 71045; 71250; 80053; 81001; 81003; 83605; 83690; 83880; 84484; 85025; 87086; 93005; 96360; 96361; 99283

== ENCOUNTER 2018-12-02 08:59 | Outpatient (CLI) | payer MEDICARE, OTHER | END 2018-12-02 09:00 | disposition home or self-care (01) | LOC: DI 08:59 | PROVIDERS: ATTEND Internal Medicine | DX: Z53.9 Procedure and treatment not carried out, unspecified reason (principal) ==

== ENCOUNTER 2018-12-11 09:04 | Outpatient (CLI) | payer MEDICARE, OTHER ==
[2018-12-11] MEDS ORDERED: REGADENOSON 0.4 MG/5 ML SYRINGE IVP ONE ×2 (10:43→13:02)
[2018-12-11] MEDS ORDERED: AMINOPHYLLINE 250 MG/10 ML VIAL ONE (11:39)
--- NOTE | 2018-12-11 14:45 | Nuclear Medicine Report ---
Reason: CHEST TIGHTNESS Procedure Date: 12/11/2018 Accession Number: [id number] / [id number] Procedure: NM - Myocardial Perfusion STR/RST CPT Code: FULL RESULT: EXAM: SINGLE-ISOTOPE PHARMACOLOGICAL STRESS TEST WITH REGADENOSON. SINGLE-ISOTOPE AND TWO-DAY REST/STRESS MYOCARDIAL PERFUSION SCANS WITH TOMOGRAPHIC IMAGING, QUANTITATIVE ANALYSIS, WALL MOTION ANALYSIS AND CALCULATION OF EJECTION FRACTION. EXAM DATE: 12/11/2018 02:04 PM. CLINICAL HISTORY: CHEST TIGHTNESS. COMPARISON: None available. TECHNIQUE: A pharmacological stress was performed with the infusion of 0.4 mg regadenoson per protocol. According to protocol, 10.6 mCi of Tc-99m sestamibi was injected for stress myocardial perfusion scan. Motion correction was applied when appropriate. The following day after the intravenous administration of 43.5 mCi of Tc-99m sestamibi, a rest myocardial perfusion scan was done with tomography. Motion correction was applied when appropriate. Gated tomographic images were obtained for wall motion analysis and computation of left ventricular ejection fraction. FINDINGS: Mildly decreased activity in the distal anteroseptal and distal inferolateral perry, similar between the rest and stress images. No convincing significant reversible perfusion defects. Summed stress score 7 Summed rest score 5 Summed difference score 2 Wall motion analysis demonstrates no significant focal wall motion abnormality. The left ventricular end-diastolic volume is 75 cc. The left ventricular end-systolic volume is 18 cc. The left ventricular ejection fraction is calculated to be 76%. IMPRESSION: 1. Apparent small mild fixed defects in the distal anteroseptal and distal inferolateral perry. No convincing reversible perfusion defects. 2. Left ventricular ejection fraction of 78%. 3. Normal segmental and global wall motion. 4. Normal left ventricular cavity size, no change with stress. 5. Based on computer analysis, mildly abnormal study with mild ischemia. Please correlate findings with stress ECG tracings and procedure notes. RADIA
--- NOTE | 2018-12-11 18:50 | CARDIAC PROCEDURE NOTE ---
DATE OF SERVICE: 12/11/2018 Physician: Valeria Cabrales MD TYPE OF TEST: Lexiscan. HEART RATE RESPONSE: 84 to 93. BLOOD PRESSURE RESPONSE: 128/78, which decreased to 98/56 during the test, but then increased back t o 116/62. SYMPTOMS: The patient had no symptoms during the test. ST SEGMENT RESPONSE: The patient had baseline early repolarization in II, III and aVF and V4 through V6. There were no significant ST segment elevations or depressions during the Lexiscan test. ARRHYTHMIAS: There was 1 PVC detected. IMPRESSION: No symptoms. No significant EKG changes. CONCLUSION: Await imaging studies. TD: 12/11/2018 14:34
== END 2018-12-11 09:05 | disposition home or self-care (01) ==
LOC: DI 09:04
PROVIDERS: ATTEND Internal Medicine
DX: I25.9 Chronic ischemic heart disease, unspecified (principal); R94.39 Abnormal result of other cardiovascular function study
CPT/HCPCS: 78452; 93017; A9500; J2785

== ENCOUNTER 2019-05-01 21:50 | Outpatient (CLI) | payer MEDICARE, OTHER | END 2019-05-01 21:51 | disposition EMS.NT | LOC: EMS 21:50 | PROVIDERS: ATTEND Surgery | DX: Z72.89 Other problems related to lifestyle (principal) ==

== ENCOUNTER 2019-12-23 13:43 | Outpatient (CLI) | payer MEDICARE, OTHER | END 2019-12-23 13:44 | disposition EMS.NT | LOC: EMS 13:43 | PROVIDERS: ATTEND Surgery | DX: R06.02 Shortness of breath (principal); R07.89 Other chest pain ==

== ENCOUNTER 2020-06-13 08:58 | Outpatient (CLI) | payer MEDICARE, OTHER | END 2020-06-13 08:59 | disposition left against medical advice (07) | LOC: EMS 08:58 | DX: S01.512A Laceration without foreign body of oral cavity, initial encounter (principal); W05.0XXA Fall from non-moving wheelchair, initial encounter; Y93.89 Activity, other specified; Y92.003 Bedroom of unspecified non-institutional (private) residence as the place of occurrence of the external cause ==

== ENCOUNTER 2020-07-18 01:43 | Outpatient (CLI) | payer MEDICARE, OTHER | END 2020-07-18 01:44 | disposition EMS.NT | LOC: EMS 01:43 | DX: Z03.89 Encounter for observation for other suspected diseases and conditions ruled out (principal) ==

== ENCOUNTER 2020-09-28 18:48 | Outpatient (CLI) | payer MEDICARE, OTHER | END 2020-09-28 18:49 | disposition critical access hospital (66) | LOC: EMS 18:48 | DX: R41.82 Altered mental status, unspecified (principal); R47.81 Slurred speech; W05.0XXA Fall from non-moving wheelchair, initial encounter; Y92.009 Unspecified place in unspecified non-institutional (private) residence as the place of occurrence of the external cause | CPT/HCPCS: A0425; A0427 ==

== ENCOUNTER 2020-09-28 19:09 | Inpatient (IN) | payer MEDICARE, OTHER ==
[2020-09-28] MEDS ORDERED: SODIUM CHLORIDE 0.9% 1,000 ML IV STA ×2 (19:23→19:24)
[2020-09-28 19:39] LABS: BASOPHILS # (AUTO) 0.1 10^3/uL (0.0-0.1); BASOPHILS % (AUTO) 0.8 %; EOSINOPHILS # (AUTO) 0.1 10^3/uL (0.0-0.7); EOSINOPHILS % (AUTO) 2.1 %; HCT - HEMATOCRIT 34.2 % (42.0-52.0); HGB - HEMOGLOBIN 11.2 g/dL (14.0-18.0); LYMPHOCYTES # (AUTO) 2.1 10^3/uL (1.5-3.5); LYMPHOCYTES % (AUTO) 32.4 %; MEAN CORPUSCULAR HEMOGLOBIN 32.2 pg (27.0-31.0); MEAN CORPUSCULAR HGB CONC 32.7 g/dL (32.0-36.0); MEAN CORPUSCULAR VOLUME 98.3 fL (80.0-94.0); MEAN PLATELET VOLUME 8.8 fL (7.4-11.4); MONOCYTES # (AUTO) 0.7 10^3/uL (0.0-1.0); MONOCYTES % (AUTO) 11.1 %; NEUTROPHILS # (AUTO) 3.4 10^3/uL (1.5-6.6); NEUTROPHILS % (AUTO) 53.3 %; PLT - PLATELET COUNT 128 10^3/uL (130-450); RED BLOOD COUNT 3.48 10^6/uL (4.70-6.10); RED CELL DISTRIBUTION WIDTH 13.2 % (12.0-15.0); WHITE BLOOD COUNT 6.3 x10^3/uL (4.8-10.8)
[2020-09-28 19:54] LABS: ALBUMIN 2.8 g/dL (3.2-5.5); ALBUMIN/GLOBULIN RATIO 0.6 (1.0-2.2); BILIRUBIN,TOTAL 0.7 mg/dL (0.2-1.0); CALCIUM 8.1 mg/dL (8.5-10.3); CREATININE 1.6 mg/dL (0.6-1.2); ETOH - ETHANOL 213.6 mg/dL; POTASSIUM 4.6 mmol/L (3.5-5.0); TOTAL PROTEIN 7.3 g/dL (6.7-8.2)
--- NOTE | 2020-09-28 20:46 | ED Physician Documentation ---
History of Present Illness - Stated complaint Stated Complaint: FALL/ ALOC - Chief complaint Chief Complaint: Neuro - History obtained from History obtained from: Patient, EMS - Additonal information Additional information: 75-year-old man with history of diabetes, coronary artery disease, status post stents, high blood pressure, hypothyroidism, COPD, presents after his roommate called EMS after a possible fainting episode during which he hit his head on a bookshelf. Upon EMS arrival he was hypotensive with blood pressure 70/44, muttering and with diminished responsiveness. They initiated 500 cc of IV fluids and he had improvement in his pressure to 107/88. EMS states that the patient's roommate denied alcohol use except for a small amount earlier in the day, but they did find an empty bottle of vodka in the home. Patient himself is a limited historian, although he is ANO x4 upon arrival. He does not remember what happened, stating that he was playing with his kittens earlier in the day. He is wheelchair-bound and thinks that he fell out of the wheelchair.Unsure if he hit his head or passed out. Review of Systems Unable to obtain: Confused PD PAST MEDICAL HISTORY - Past Medical History Past Medical History: Yes Cardiovascular: Hypertension, High cholesterol, Coronary artery disease, Peripheral Vascular Disease, [place] Respiratory: COPD, Shortness of breath Neuro: Peripheral neuropathy Endocrine/Autoimmune: Type 2 diabetes GI: GERD : Nocturia, Frequency, Kidney stones Psych: Anxiety, Panic attacks Musculoskeletal: Fibromyalgia, Chronic back pain - Past Surgical History Past Surgical History: Yes Ortho: Amputation Cardiovascular: Coronary stent HEENT: Cataracts - Present Medications Home Medications: Ambulatory Orders Medication Instructions Recorded Confirmed Loratadine 10 mg PO DAILY 11/07/12 09/28/20 Aspirin [Aspirin EC] 81 mg PO DAILY #30 tablet. 08/26/17 09/28/20 Atorvastatin [Lipitor] 40 mg PO DAILY PM #30 08/26/17 09/28/20 Insulin Glargine [Lantus Solostar] 40 unit SUBQ QPM #2 pen 08/26/17 09/28/20 Omeprazole [PriLOSEC] 20 mg PO DAILY #30 08/26/17 09/28/20 Spironolactone [Aldactone] 25 mg PO DAILY #30 tablet 08/26/17 09/28/20 carvediloL [Coreg] 25 mg PO BID #60 08/26/17 09/28/20 Furosemide 1 tab PO BID 12/30/17 09/28/20 Gabapentin [Neurontin] 300 mg PO QID 06/01/18 09/28/20 Losartan [Cozaar] 40 mg PO DAILY 06/01/18 09/28/20 - Allergies Allergies/Adverse Reactions: Allergies Allergy/AdvReac Type Severity Reaction Status Date / Time pregabalin [From Lyrica] Allergy Intermediate unknown Verified 10/12/18 11:06 simvastatin [From Zocor] Allergy Intermediate Nausea Verified 10/12/18 11:06 sulfamethoxazole Allergy Intermediate unknown Verified 10/12/18 11:06 [From Septra] trimethoprim [From Septra] Allergy Intermediate unknown Verified 10/12/18 11:06 tetracycline [Tetracycline] Allergy Rash Verified 10/12/18 11:06 - Social History Does the pt smoke?: No Smoking Status: Never smoker Does the pt drink ETOH?: Yes Does the pt have substance abuse?: Yes - Immunizations Immunizations are current?: Yes - POLST Patient has POLST: No POLST Status: Full Code PD ED PE NORMAL - Vitals Vital signs reviewed: Yes - General General: Alert and oriented X 3, No acute distress, Other (disheveled appearing) - HEENT HEENT: Atraumatic, PERRL, EOMI, Moist mucous membranes, Pharynx benign - Neck Neck: Supple, no meningeal sign, No bony TTP - Cardiac Cardiac: RRR - Respiratory Respiratory: No respiratory distress, Clear bilaterally - Abdomen Abdomen: Non tender, Non distended - Back Back: No spinal TTP - Derm Derm: Normal color - Extremities Extremities: No deformity (RLE amputation. R finger amputation) - Neuro Neuro: Alert and oriented X 3 Eye Opening: To Voice Motor: Obeys Commands Verbal: Confused GCS Score: 13 - Psych Psych: Other (slow to respond. hard of hearing. appears intermittently confused, but able to state the year, his location, and his name after being placed in trendelenberg and after some prompting.) Results - Vitals Vitals: Vital Signs - 24 hr 09/28/20 09/28/20 09/28/20 19:12 19:17 19:29 Temperature 36.4 C L 36.4 C L 36.5 C Heart Rate 71 71 72 Respiratory 19 19 11 L Rate Blood Pressure 100/63 100/63 94/73 O2 Saturation 97 97 97 09/28/20 09/28/20 09/28/20 19:44 19:47 20:17 Temperature 36.6 C Heart Rate 73 71 77 Respiratory 9 L 10 L 12 Rate Blood Pressure 112/64 122/71 132/78 H O2 Saturation 97 100 100 09/28/20 09/28/20 20:30 21:00 Temperature Heart Rate 72 79 Respiratory 14 13 Rate Blood Pressure 133/82 H 136/82 H O2 Saturation 98 98 Oxygen O2 Source Room air - EKG (time done) 1917 Rate: Rate (enter#) (70) Rhythm: NSR [place]: Normal Intervals: Prolonged DE (221) QRS: Normal Ischemia: Normal ST segments Computer interpretation: Agree with computer - Labs Labs: Laboratory Tests 09/28/20 09/28/20 09/28/20 19:34 19:34 19:34 WBC 6.3 RBC 3.48 L Hgb 11.2 L Hct 34.2 L MCV 98.3 H MCH 32.2 H MCHC 32.7 RDW 13.2 Plt Count 128 L MPV 8.8 Neut # (Auto) 3.4 Lymph # (Auto) 2.1 [place] # (Auto) 0.7 Eos # (Auto) 0.1 Baso # (Auto) 0.1 Absolute Nucleated RBC 0.00 Nucleated RBC % 0.0 D-Dimer Sodium 131 L Potassium 4.6 Chloride 99 L Carbon Dioxide 24 Anion Gap 8.0 BUN 40 H Creatinine 1.6 H Estimated GFR (MDRD) 42 L Glucose 126 H Calcium 8.1 L Total Bilirubin 0.7 AST 55 H ALT 48 Alkaline Phosphatase 101 Total Protein 7.3 Albumin 2.8 L Globulin 4.5 H Albumin/Globulin Ratio 0.6 L Lipase 54 H TSH 2.77 Ethyl Alcohol 213.6 09/28/20 19:34 WBC RBC Hgb Hct MCV MCH MCHC RDW Plt Count MPV Neut # (Auto) Lymph # (Auto) [place] # (Auto) Eos # (Auto) Baso # (Auto) Absolute Nucleated RBC Nucleated RBC % D-Dimer 269.0 H Sodium Potassium Chloride Carbon Dioxide Anion Gap BUN Creatinine Estimated GFR (MDRD) Glucose Calcium Total Bilirubin AST ALT Alkaline Phosphatase Total Protein Albumin Globulin Albumin/Globulin Ratio Lipase TSH Ethyl Alcohol PD MEDICAL DECISION MAKING - ED course ED course: Age-adjusted D-dimer negative. Discussed with patient who is amenable to observation stay for likely fainting episode. Departure - Departure Disposition: ED Place in Observation Clinical Impression: Confusion, Alcohol abuse, Syncope and collapse Condition: Good
--- NOTE | 2020-09-28 20:57 | CT Report ---
PROCEDURE: HEAD WO INDICATIONS: fall against a bookshelf, unk LOC. +etoh TECHNIQUE: Noncontrast 4.5 mm thick angled axial sections acquired from the foramen magnum to the vertex. For r adiation dose reduction, the following was used: automated exposure control, adjustment of mA and/or kV according to patient size. COMPARISON: None. FINDINGS: Image quality: Excellent. CSF spaces: Basal cisterns are patent. No extra-axial fluid collections. Ventricles are normal in size and shape. Brain: No midline shift. No intracranial masses or hemorrhage. [place]-white matter interface is norm al. Skull and face: Calvarium and visualized facial bones are intact, without suspicious lesions. Sinuses: Visualized sinuses and mastoids are clear. IMPRESSION: No trauma found. Reviewed by: Brayan Appiah MD on 09/28/2020 8:55 PM PDT Approved by: Brayan Appiah MD on 09/28/2020 8:55 PM PDT Station ID: [id number]
[2020-09-28] MEDS ORDERED: ACETAMINOPHEN 325 MG TABLET PO STA (21:12)
[2020-09-28 21:30] LABS: B. PARAPERTUSSIS- RESP PCR PAN NOT DETECTED; B. PERTUSSIS- RESP PCR PANEL NOT DETECTED; C. PNEUMONIAE- RESP PCR PANEL NOT DETECTED; CORONAVIRUS 229E-RESP PCR NOT DETECTED; CORONAVIRUS HKU1-RESP PCR NOT DETECTED; CORONAVIRUS NL63-RESP PCR NOT DETECTED; CORONAVIRUS OC43-RESP PCR NOT DETECTED; HUMAN METAPNEUMOVIRUS NOT DETECTED; INFLUENZA A- RESP PCR PANEL NOT DETECTED; INFLUENZA B - RESP PCR PANEL NOT DETECTED; M. PNEUMONIAE- RESP PCR PANEL NOT DETECTED; PARAINFLUENZA VIRUS 1 NOT DETECTED; PARAINFLUENZA VIRUS 2 NOT DETECTED; PARAINFLUENZA VIRUS 3 NOT DETECTED; PARAINFLUENZA VIRUS 4 NOT DETECTED; RHINOVIRUS/ENTEROVIRUS NOT DETECTED; RSV- RESP PCR PANEL NOT DETECTED; SARS-CoV-2 -RESP PCR PANEL NOT DETECTED
[2020-09-28] MEDS ORDERED: ACETAMINOPHEN 325 MG TABLET PO PRN (21:56)
[2020-09-28] MEDS ORDERED: ONDANSETRON 4 MG/2 ML VIAL IVP PRN (21:56)
[2020-09-28] MEDS ORDERED: SODIUM CHLORIDE FLUSH 0.9% 10 ML SYRINGE IVP PRN (21:56)
[2020-09-28] MEDS ORDERED: LORazepam 2 MG/ML VIAL IVP PRN (22:03)
--- NOTE | 2020-09-28 22:11 | HISTORY & PHYSICAL EXAMINATION ---
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 He lives with his who has dementia and he describes being her caregive. There is a "man who lives with them and is also both of their caregiver". Patient states that he gets upset when his has odd behavior from her dementia which leads him to occasionally drink vodka in excess. He has had no alcohol for 3 days but admits that today he was drinking alot of vodka and also says that he and his were enjoying drinks together. The patient was sitting in his wheelchair near the caregiver man who lives with him and he started leaning forward toward a bookshelf and kept going forward and fell out of the wheelchair. The caregiver called an ambulance. When they arrived his blood pressure was 70/40 at the scene. The ambulance run sheet is not available to know his heart rate at the scene or glucose check at the scene. He received saline hydration en route to the ER. In the ER he was put into Trendelenburg. In the ER his blood pressure improved to 104 and subsequently to the 130s. He was initially confused and was answering with gibberish but eventually was oriented x3, was able to sit upright and converse. His labs came back showing serum alcohol level of 213, prerenal azotemia, mildly elevated AST, and elevated MCV. He is being placed in Observation status to evaluate causes for syncope and hypotension History - Past Medical History Cardiovascular: reports: Hypertension, High cholesterol, Coronary artery disease, Peripheral Vascular Disease, AL Respiratory: reports: COPD, Shortness of breath Neuro: reports: Peripheral neuropathy Endocrine/Autoimmune: reports: Type 2 diabetes GI: reports: GERD : reports: Nocturia, Frequency, Kidney stones Psych: reports: Anxiety, Panic attacks Musculoskeletal: reports: Fibromyalgia, Chronic back pain MRSA Hx?: No - Past Surgical History Ortho: reports: Amputation (R lower extrem, due to osteo) Cardiovascular: reports: Coronary stent HEENT: reports: Cataracts - Family & Social History Family History: Mother: , Diabetes, Type 2, Father: , CAD Living arrangement: At home Living Situation: With spouse/s.o., With caregiver(s) (A 50 y/o male lives with them, helps around the house and caregiving.) Social History Notes: The patient lives in [place] with his who has Alzheimer's dementia. He states that he is the primary caregiver for his . He is retired. He quit smoking in 2002 prior to that he was a pack-a-day smoker for close to 40 years. He states that he does continue to drink but has cut down on his drinking recently. He has used marijuana to try to deal with his pain. He denies any other illicit drug use. - Substance History Use Issues: Intoxication - POLST Patient has POLST: No POLST Status: Full Code Meds/Allgy - Home Medications Home Medications: Ambulatory Orders Medication Instructions Recorded Confirmed Loratadine 10 mg PO DAILY 11/07/12 09/28/20 Aspirin [Aspirin EC] 81 mg PO DAILY #30 tablet. 08/26/17 09/28/20 Atorvastatin [Lipitor] 40 mg PO DAILY PM #30 08/26/17 09/28/20 Insulin Glargine [Lantus Solostar] 40 unit SUBQ QPM #2 pen 08/26/17 09/28/20 Omeprazole [PriLOSEC] 20 mg PO DAILY #30 08/26/17 09/28/20 Spironolactone [Aldactone] 25 mg PO DAILY #30 tablet 08/26/17 09/28/20 carvediloL [Coreg] 25 mg PO BID #60 08/26/17 09/28/20 Furosemide 1 tab PO BID 12/30/17 09/28/20 Gabapentin [Neurontin] 300 mg PO QID 06/01/18 09/28/20 Losartan [Cozaar] 40 mg PO DAILY 06/01/18 09/28/20 - Allergies Allergies/Adverse Reactions: Allergies Allergy/AdvReac Type Severity Reaction Status Date / Time pregabalin [From Lyrica] Allergy Intermediate unknown Verified 10/12/18 11:06 simvastatin [From Zocor] Allergy Intermediate Nausea Verified 10/12/18 11:06 sulfamethoxazole Allergy Intermediate unknown Verified 10/12/18 11:06 [From Septra] trimethoprim [From Septra] Allergy Intermediate unknown Verified 10/12/18 11:06 tetracycline [Tetracycline] Allergy Rash Verified 10/12/18 11:06 Review of Systems - Gastrointestinal Gastrointestinal: reports: Constipation (No BM in 1.5 days and his LLQ feels full and tender, he reports) - Musculoskeletal Musculoskeletal: reports: Other (Pain in L lower leg) - Integumentary Integumentary: reports: Other (scabs and blisters of L lower leg) - Psychiatric Psychiatric: reports: Anxiety - All Other Systems All Other Systems: reports: Reviewed and negative Exam - Vital Signs Reviewed Vital Signs: Yes Vital Signs: Vital Signs x48h Temp Pulse Resp BP Pulse Ox 09/28/20 22:00 36.6 C 78 11 L 141/76 H 97 09/28/20 21:00 79 13 136/82 H 98 09/28/20 20:30 72 14 133/82 H 98 09/28/20 20:17 77 12 132/78 H 100 09/28/20 19:47 36.6 C 71 10 L 122/71 100 09/28/20 19:44 73 9 L 112/64 97 09/28/20 19:29 36.5 C 72 11 L 94/73 97 09/28/20 19:17 36.4 C L 71 19 100/63 97 09/28/20 19:12 36.4 C L 71 19 100/63 97 - Physical Exam General Appearance: positive: No acute distress, Alert, Other (Obese, bald) Eyes Bilateral: positive: PERRL, Other (Eyes are crossed when looks around (?still inebriated)) ENT: positive: ENT inspection nml, No signs of dehydration Neck: positive: Nml inspection, No JVD Respiratory: positive: No respiratory distress, Breath sounds nml Cardiovascular: positive: Regular rate & rhythm, No murmur Abdomen: positive: Nml bowel sounds, No distention, Other (No guarding or rebound, mild tenderness to deep palpation in the left lower quadrant) Skin: positive: Warm, Dry Extremities: positive: Other (R BKA and stump has 1+ edema, L has 1+ edema to knees and venous stasis and several eschars. Amputated R pointer finger.) Neurologic/Psychiatric: positive: Oriented x3, Other (L hand has a fine restinf tremor) Conclusion/Plan - Problem List (1) Syncope and collapse Conclusion/Plan: The reported blood pressure at the scene was 77/40. The reason for this hypotension is unknown. He may have had dehydration from the recent heat wave or from excessive use of Lasix. He may have had the low blood pressure from excessive blood pressure medication use. But he says he only takes the pills as prescribed. The low BP may have been a cardiac event, given his Hx of CAD and Hx of AL. He may have fallen out of his wheelchair due to alcohol intoxication. He may have blacked out due to low glucose. Plan: Will place on telemetry. Will order orthostatic vital sign checks. We will obtain echo. We will check troponins. We will decrease his blood pressure meds by half, empirically (2) Confusion Conclusion/Plan: He was confused in the ER, which may be from the presence of alcohol, or from Hyponatremia or from the low BP. Will check his ammonia level and GGT in am. Will order daily Thiamine orally. (3) Alcohol abuse Conclusion/Plan: Alcohol is present on his screening lab work. His AST is greater than ALT, MCV is elevated. We will order INR to check liver synthesis function. We will order a CIWA protocol and as needed Ativan in case he goes into withdrawal. Follow LFTs daily. Will order daily oral thiamine. Will order CIWA protocol, prn iv Ativan in case of alcohol withdrawal. (4) Insulin dependent diabetes mellitus Conclusion/Plan: He describes taking Insulin twice a day but no longer does fingerstick checks, for many mos. At admission his glu is low for a diabetic at 92, therefore his Lantus dose is probably excessive. A low serum glu may also have led to the syncope. The ambulance run sheet is not available at this time, to know what his fingerstick glu result was when the ambulance arrived. Will order half or less of his stated amount of his evening Lantus Will check A1c in am. Will order carb controlled diet and fingerstick checks and ss Insulin. Will request a Dietary consult to get details about his diet (5) Hyponatremia Conclusion/Plan: He claimed he was trying to stay hydrated during the heat wave by "drinking lots of water". He also has evidence of alcohol use and may have had excessive free water intake in the form of alcohol. Will start IV normal saline at a slow rate because of his history of AL, to avoid CHF and to correct the slowly. Follow BMP daily, (6) Acute kidney injury superimposed on chronic kidney disease Conclusion/Plan: This patient runs creatinine levels of 1.3-2.1, however his BUN is usually normal. With this ratio of BUN/creatinine of 40/1.6, he is prerenal suggesting dehydration. This dehydration likely caused this abnormal result and may be also the low blood pressure leading to syncope. He could be dehydrated from the recent heat wave that was present or from excessive alcohol intake or excessive Lasix use. Will continue gentle iv hydration. Will avoid nephrotoxins. Follow BMP daily. (7) Hx of coronary artery disease Conclusion/Plan: From the combination of medicines of carvedilol, MINDY inhibitor and spironolactone, he also probably has a history of a cardiomyopathy. aN echo is already ordered to evaluate chamber sizes, function and valves because of the syncope. We will continue his aspirin and statin. Will decrease his beta-megan, losartan and spironolactone doses by half. (8) Anemia Conclusion/Plan: There is a history of iron deficiency anemia and he used to be on iron replacements. However, his MCV is elevated as seen with alcohol abuse. Will check a guaiac of stool. Will check B12 and folate levels and iron stores and replace if low. Follow CBC daily (9) Constipation Conclusion/Plan: This would be another effect from being dehydrated. Will order Colace that he takes at home and a bowel protocol per our routine (10) Wheelchair bound Conclusion/Plan: As per Hx. He describes having the strength to do bed to wheelchair transfers on his own, and the caregiver helps him outside. - Lab Results Fish Bones: 09/28/20 19:34 09/28/20 19:34
[2020-09-28] MEDS ORDERED: INSULIN GLARGINE 300 UNIT/3 ML PEN SUBQ SCH (22:20)
[2020-09-28 22:30] LABS: INR 1.1 (0.8-1.2); PT - PROTHROMBIN TIME 11.9 secs (9.9-12.6)
[2020-09-28] MEDS ORDERED: GABAPENTIN 400 MG CAPSULE PO SCH (23:00)
[2020-09-28] MEDS: ATORVASTATIN 40 MG TABLET PO SCH (23:47)
[2020-09-28] MEDS: SODIUM CHLORIDE 0.9% 1,000 ML IV SCH (23:47)
[2020-09-29] MEDS: SODIUM CHLORIDE FLUSH 0.9% 10 ML SYRINGE IVP SCH ×3 (00:02→16:03)
[2020-09-29 00:15] LABS: MUDS CUTOFF CONCENTRATIONS CUTOFF CONC BELOW:
[2020-09-29 00:18] LABS: BILIRUBIN,URINE NEGATIVE (NEGATIVE); GLUCOSE, URINE (UA) 250 mg/dL (NEGATIVE); KETONES,URINE (UA) NEGATIVE (NEGATIVE); LEUKOCYTE ESTERASE, URINE NEGATIVE (NEGATIVE); NITRITE,URINE NEGATIVE (NEGATIVE); OCCULT BLOOD,URINE NEGATIVE (NEGATIVE); PH,URINE 6.5 PH (5.0-7.5); PROTEIN,URINE NEGATIVE (NEGATIVE); UROBILINOGEN,URINE 0.2 (NORMAL) E.U./dL (NORMAL)
[2020-09-29 00:19] LABS: CLARITY,URINE CLEAR (CLEAR)
[2020-09-29 00:29] LABS: AMPHETAMINE SCREEN,URINE NEGATIVE (NEGATIVE); BARBITURATE SCREEN,UR NEGATIVE (NEGATIVE); BENZODIAZEPINES SCREEN, URINE NEGATIVE (NEGATIVE); COCAINE SCREEN URINE NEGATIVE (NEGATIVE); METHADONE SCREEN, URINE NEGATIVE (NEGATIVE); METHAMPHETAMINES SCREEN, URINE NEGATIVE (NEGATIVE); OPIATE SCREEN, URINE NEGATIVE (NEGATIVE); OXYCODONE SCREEN, URINE NEGATIVE (NEGATIVE); PROPOXYPHENE SCREEN, URINE NEGATIVE (NEGATIVE); THC CANNABINOID SCREEN, URINE NEGATIVE (NEGATIVE); TRICYCLIC ANTIDEPRESSANT,URINE NEGATIVE (NEGATIVE)
[2020-09-29] MEDS: GABAPENTIN 400 MG CAPSULE PO SCH ×4 (00:30→20:56)
[2020-09-29] MEDS ORDERED: LIDOCAINE 2% URO-JET 5 ML SYRINGE UR ONE ×2 (03:56→18:51)
[2020-09-29] MEDS: DOCUSATE SODIUM 100 MG CAPSULE PO SCH ×3 (04:49→20:56)
[2020-09-29 05:10] LABS: BASOPHILS # (AUTO) 0.1 10^3/uL (0.0-0.1); BASOPHILS % (AUTO) 0.8 %; EOSINOPHILS # (AUTO) 0.2 10^3/uL (0.0-0.7); EOSINOPHILS % (AUTO) 2.3 %; HCT - HEMATOCRIT 34.5 % (42.0-52.0); HGB - HEMOGLOBIN 11.2 g/dL (14.0-18.0); LYMPHOCYTES % (AUTO) 26.5 %; MEAN CORPUSCULAR HEMOGLOBIN 32.2 pg (27.0-31.0); MEAN CORPUSCULAR HGB CONC 32.5 g/dL (32.0-36.0); MEAN CORPUSCULAR VOLUME 99.1 fL (80.0-94.0); MEAN PLATELET VOLUME 9.3 fL (7.4-11.4); MONOCYTES # (AUTO) 0.8 10^3/uL (0.0-1.0); MONOCYTES % (AUTO) 10.3 %; NEUTROPHILS # (AUTO) 4.4 10^3/uL (1.5-6.6); NEUTROPHILS % (AUTO) 59.8 %; PLT - PLATELET COUNT 137 10^3/uL (130-450); RED BLOOD COUNT 3.48 10^6/uL (4.70-6.10); RED CELL DISTRIBUTION WIDTH 13.2 % (12.0-15.0); WHITE BLOOD COUNT 7.4 x10^3/uL (4.8-10.8)
[2020-09-29 05:37] LABS: ALBUMIN/GLOBULIN RATIO 0.7 (1.0-2.2); BILIRUBIN,TOTAL 0.9 mg/dL (0.2-1.0); CALCIUM 8.2 mg/dL (8.5-10.3); CREATININE 1.4 mg/dL (0.6-1.2); MAGNESIUM 2.4 mg/dL (1.7-2.8); PHOSPHORUS 3.4 mg/dL (2.5-4.6); POTASSIUM 4.4 mmol/L (3.5-5.0); TOTAL PROTEIN 7.5 g/dL (6.7-8.2)
[2020-09-29 05:49] LABS: FOLATE 12.09 ng/mL (5.90 - >24.8)
--- NOTE | 2020-09-29 08:23 | XRAY Report ---
PROCEDURE: Chest 1 View X-Ray INDICATIONS: Syncope, Alcohol use, Hx CAD TECHNIQUE: One view of the chest was acquired. COMPARISON: Chest x-ray one view, 10/12/[address] without contrast, 10/12/2018. FINDINGS: Surgical changes and devices: None. Lungs and pleura: No pleural effusions or pneumothorax. Lungs are clear. Mediastinum: Mediastinal contours appear normal. Heart size is normal. Bones and chest wall: Old left eighth rib fracture posteriorly. Overlying soft tissues appear unrema rkable. IMPRESSION: No acute cardiopulmonary disease. No significant discrepancy with the preliminary interpretation. Reviewed by: Bisi Whittington MD on 09/29/2020 8:22 AM PDT Approved by: Bisi Whittington MD on 09/29/2020 8:22 AM PDT Station ID: [id number]
[2020-09-29] MEDS: ASPIRIN EC 81 MG TABLET PO SCH (08:26)
[2020-09-29] MEDS: THIAMINE 100 MG TABLET PO SCH (08:26)
[2020-09-29] MEDS: SPIRONOLACTONE 25 MG TABLET PO SCH (08:26)
[2020-09-29] MEDS: PANTOPRAZOLE 40 MG TABLET PO SCH (08:26)
[2020-09-29] MEDS: ENOXAPARIN 40 MG/0.4 ML SYRINGE SUBQ SCH (08:27)
[2020-09-29] MEDS: INSULIN ASPART 300 UNIT/3 ML PEN SUBQ SCH ×4 (08:27→21:01)
[2020-09-29 08:37] LABS: ESTIMATED AVERAGE GLUCOSE 252 mg/dL (70-100); HEMOGLOBIN A1c% 10.4 % (4.27-6.07)
[2020-09-29] MEDS ORDERED: carvediloL 12.5 MG TABLET PO SCH (09:00)
[2020-09-29] MEDS ORDERED: LOSARTAN 50 MG TABLET PO SCH (09:00)
[2020-09-29 09:40] LABS: FECAL OCCULT BLOOD (FIT) POSITIVE (NEGATIVE)
[2020-09-29] MEDS: TAMSULOSIN 0.4 MG CAPSULE PO SCH (11:29)
--- NOTE | 2020-09-29 12:32 | PHARMACY PROGRESS NOTE ---
- Best Possible Medication History Admit Date and Time: 09/28/20 2430 Processed by: Nursing Medication History completed: Yes As the person ultimately responsible for medication therapy, providers are able to order a medication from an existing home medication list in [facility] via the "Reconcile Routine" prior to Confirmation of that medication by ground support agent. Such practice is discouraged except when the physician, in their clinical judgment, deems that a medical need exists for a medication without regard to previous use.
[2020-09-29] MEDS: SODIUM CHLORIDE 0.9% 1,000 ML IV SCH (13:59)
[2020-09-29] MEDS: HYDROcod/ACETAM 5/325 MG TABLET PO PRN ×2 (16:12→21:07)
--- NOTE | 2020-09-29 17:31 | PROVIDER PROGRESS NOTE ---
Assessment/Plan - Problem List (1) Syncope and collapse Assessment/Plan: Possibly due to dehydration. Patient's blood pressure upon presentation was 77/40. Patient has received IV hydration. Blood pressure is currently 161/78. He is producing urine adequately. 2D echocardiogram showed high cardiac output with an ejection fraction of 70 to 75% suggestive of hypovolemia. Overall left ventricular systolic function was normal. There was impaired relaxation consistent with grade 1 diastolic dysfunction. There was no regional wall motion abnormality. There was no significant valvular disease. (2) Urinary retention Assessment/Plan: Suspect BPH. Patient was straight cathed for 800 mils of urine and 500 mils 5 hours apart. A Mahan catheter was placed. Patient was started on Flomax. He was kept for 1 more night due to the urinary retention. (3) Confusion Assessment/Plan: Likely due to alcohol intoxication. Patient's mentation is back to baseline. He is communicating without any difficulties. (4) Alcohol abuse Assessment/Plan: CIWA protocol ordered (5) Insulin dependent diabetes mellitus Assessment/Plan: HgA1C is 10.4 Patient supposedly takes lantus 110 units subq bid Will verify. Blood glucose was 69 this morning. Lantus 40mg qpm ordered. Diabetic education ordered (6) Acute kidney injury superimposed on chronic kidney disease Assessment/Plan: Likely due to hypovolemia/ dehydration. Cr 1.4 with eGFR 49 Patient has been adequately hydrated. Will recheck renal function with morning labs (7) Hx of coronary artery disease Assessment/Plan: On carvedilol, MINDY inhibitor, aspirin, statin, losartan and spironolactone. (8) Hyponatremia Assessment/Plan: Likely hypovolemic hyponatremia Resolved with IV hydration Sodium is 137 (9) Anemia Assessment/Plan: Stool guaiac was positive. However hemoglobin has been stable at 11.2. We will continue to monitor. On Protonix 40 mg p.o. daily. MCV is 99.1. Vitamin B12 was 791 and folate was 12.09 He may receive an endoscopy in the outpatient setting - Current Meds Current Meds: Current Medications Generic Name Dose Route Start Last Admin Trade Name Freq PRN Reason Stop Dose Admin Acetaminophen 650 mg 09/28/20 21:56 09/29/20 04:49 Acetaminophen 325 Mg Tablet PO 650 mg Q4HR PRN Administration Pain or Fever > 38C (100.4F) Hydrocodone Bitart/Acetaminophen 1 tab 09/29/20 08:59 09/29/20 16:12 Hydrocod/Acetam 5/325 Mg Tablet PO 1 tab Q4HR PRN Administration PAIN Aspirin 81 mg 09/29/20 09:00 09/29/20 08:26 Aspirin Ec 81 Mg Tablet PO 81 mg DAILY CATIE Administration Atorvastatin Calcium 40 mg 09/28/20 23:00 09/28/20 23:47 Atorvastatin 40 Mg Tablet PO 40 mg HS CATIE Administration Carvedilol 12.5 mg 09/29/20 09:00 09/29/20 08:27 Carvedilol 12.5 Mg Tablet PO 12.5 mg BID CATIE Administration Docusate Sodium 100 mg 09/29/20 01:07 09/29/20 08:34 Docusate Sodium 100 Mg Capsule PO Not Given BID CATIE Enoxaparin Sodium 40 mg 09/29/20 09:00 09/29/20 08:27 Enoxaparin 40 Mg/0.4 Ml Syringe SUBQ 40 mg DAILY CATIE Administration Gabapentin 400 mg 09/28/20 23:50 09/29/20 13:59 Gabapentin 400 Mg Capsule PO 400 mg TID CATIE Administration Sodium Chloride 1,000 mls @ 60 mls/hr 09/28/20 22:00 09/29/20 13:59 Normal Saline 0.9% IV 60 mls/hr .[id number] CATIE Administration Insulin Aspart 1 - 5 unit 09/29/20 08:00 09/29/20 16:33 Insulin Aspart 300 Unit/3 Ml Pen SUBQ 1 unit 0800,1200,1700,2100 CATIE Administration Protocol Losartan Potassium 20 mg 09/29/20 09:00 09/29/20 08:33 Losartan 50 Mg Tablet PO 20 mg DAILY CATIE Administration Pantoprazole Sodium 40 mg 09/29/20 09:00 09/29/20 08:26 Pantoprazole 40 Mg Tablet PO 40 mg DAILY CATIE Administration Sodium Chloride 10 ml 09/29/20 01:00 09/29/20 16:03 Sodium Chloride Flush 0.9% 10 Ml Syringe IVP Not Given 0100,0900,1700 CATIE Spironolactone 12.5 mg 09/29/20 09:00 09/29/20 08:26 Spironolactone 25 Mg Tablet PO 12.5 mg DAILY CATIE Administration Tamsulosin HCl 0.4 mg 09/29/20 12:00 09/29/20 11:29 Tamsulosin 0.4 Mg Capsule PO 0.4 mg DAILY CATIE Administration Thiamine HCl 100 mg 09/29/20 09:00 09/29/20 08:26 Thiamine 100 Mg Tablet PO 100 mg DAILY CATIE Administration - Lab Result Fish Bone Diagrams: 09/30/20 08:03 09/30/20 08:03 - Additional Planning My Orders: My Active Orders 09/29/20 can filler Consult [CONS] Routine 09/29/20 08:59 HYDROcod/ACETAM 5/325 [[place] 5/325] 1 tab PO Q4HR PRN 09/29/20 11:11 Straight Catheter Insertion [RC] PRN 09/29/20 12:00 Tamsulosin [Flomax] 0.4 mg PO DAILY 09/29/20 21:00 Insulin Glargine [Lantus Solostar] 40 unit SUBQ QPM Subjective - Subjective Patient Reports: Other (Was resting comfortably in bed at time of exam. He complained of lower abdominal tenderness upon palpation and back pain. He denies any other issues. His right lower extremity appears dusky. He reports no sensation in the lower extremity. He is retaining urine.) Objective Vital Signs: Vital Signs - 24 hr 09/28/20 09/28/20 09/28/20 19:12 19:17 19:29 Temperature 36.4 C L 36.4 C L 36.5 C Heart Rate 71 71 72 Heart Rate [ Brachial] Respiratory 19 19 11 L Rate Blood Pressure 100/63 100/63 94/73 Blood Pressure [Right Brachial artery] O2 Saturation 97 97 97 09/28/20 09/28/20 09/28/20 19:44 19:47 20:17 Temperature 36.6 C Heart Rate 73 71 77 Heart Rate [ Brachial] Respiratory 9 L 10 L 12 Rate Blood Pressure 112/64 122/71 132/78 H Blood Pressure [Right Brachial artery] O2 Saturation 97 100 100 09/28/20 09/28/20 09/28/20 20:30 21:00 22:00 Temperature 36.6 C Heart Rate 72 79 78 Heart Rate [ Brachial] Respiratory 14 13 11 L Rate Blood Pressure 133/82 H 136/82 H 141/76 H Blood Pressure [Right Brachial artery] O2 Saturation 98 98 97 09/28/20 09/29/20 09/29/20 23:09 04:09 07:30 Temperature 36.3 C L 36.2 C L 36.7 C Heart Rate Heart Rate [ 77 75 81 Brachial] Respiratory 18 16 20 Rate Blood Pressure Blood Pressure 140/84 H 101/64 148/84 H [Right Brachial artery] O2 Saturation 98 96 99 09/29/20 09/29/20 10:58 15:32 Temperature 36.9 C 37.1 C Heart Rate Heart Rate [ 88 87 Brachial] Respiratory 20 19 Rate Blood Pressure Blood Pressure 166/83 H 161/78 H [Right Brachial artery] O2 Saturation 98 98 Oxygen O2 Source Room air I&O (Last 24 Hrs): Intake and Output Totals x24h 09/27/20 09/28/20 09/29/20 23:59 23:59 23:59 Intake Total 1000 2352 Output Total 5800 Balance 1000 -3448 General: Alert, Oriented x3, Mild distress, Moderate distress HEENT: PERRLA, EOMI Neck: Supple, No JVD Neuro: Alert, Non Focal, Oriented Times 3 Cardiovascular: Regular rate, Normal S1, Normal S2 Respiratory: Chest non-tender, No respiratory distress, Breath sounds nml Abdomen: Normal bowel sounds, Soft, Other (tender to palpation) Extremities: Other (Right BKA. Left leg dusky with chronic wounds noted) Skin: No rashes - Results Results: Laboratory Results WBC 7.4 x10^3/uL (4.8-10.8) 09/29/20 04:50 RBC 3.48 10^6/uL (4.70-6.10) L 09/29/20 04:50 Hgb 11.2 g/dL (14.0-18.0) L 09/29/20 04:50 Hct 34.5 % (42.0-52.0) L 09/29/20 04:50 MCV 99.1 fL (80.0-94.0) H 09/29/20 04:50 MCH 32.2 pg (27.0-31.0) H 09/29/20 04:50 MCHC 32.5 g/dL (32.0-36.0) 09/29/20 04:50 RDW 13.2 % (12.0-15.0) 09/29/20 04:50 Plt Count 137 10^3/uL (130-450) 09/29/20 04:50 MPV 9.3 fL (7.4-11.4) 09/29/20 04:50 Neut # (Auto) 4.4 10^3/uL (1.5-6.6) 09/29/20 04:50 Lymph # (Auto) 2.0 10^3/uL (1.5-3.5) 09/29/20 04:50 Page # (Auto) 0.8 10^3/uL (0.0-1.0) 09/29/20 04:50 Eos # (Auto) 0.2 10^3/uL (0.0-0.7) 09/29/20 04:50 Baso # (Auto) 0.1 10^3/uL (0.0-0.1) 09/29/20 04:50 Absolute Nucleated RBC 0.00 x10^3/uL 09/29/20 04:50 Nucleated RBC % 0.0 /100WBC 09/29/20 04:50 PT 11.9 secs (9.9-12.6) 09/28/20 19:34 INR 1.1 (0.8-1.2) 09/28/20 19:34 D-Dimer 269.0 ng/mL (200.0-255.0) H 09/28/20 19:34 Sodium 137 mmol/L (135-145) 09/29/20 04:50 Potassium 4.4 mmol/L (3.5-5.0) 09/29/20 04:50 Chloride 105 mmol/L (101-111) 09/29/20 04:50 Carbon Dioxide 22 mmol/L (21-32) 09/29/20 04:50 Anion Gap 10.0 (6-13) 09/29/20 04:50 BUN 39 mg/dL (6-20) H 09/29/20 04:50 Creatinine 1.4 mg/dL (0.6-1.2) H 09/29/20 04:50 Estimated GFR (MDRD) 49 (>89) L 09/29/20 04:50 Glucose 69 mg/dL (70-100) L 09/29/20 04:50 Estimat Average Glucose 252 mg/dL (70-100) H 09/29/20 04:50 Hemoglobin A1c % 10.4 % (4.27-6.07) H 09/29/20 04:50 Calcium 8.2 mg/dL (8.5-10.3) L 09/29/20 04:50 Phosphorus 3.4 mg/dL (2.5-4.6) 09/29/20 04:50 Magnesium 2.4 mg/dL (1.7-2.8) 09/29/20 04:50 Iron 109 ug/dL (45-182) 09/29/20 04:50 TIBC 316 ug/dL (250-450) 09/29/20 04:50 % Saturation 34 % (20-50) 09/29/20 04:50 Transferrin 226 mg/dL (180-329) 09/29/20 04:50 Total Bilirubin 0.9 mg/dL (0.2-1.0) 09/29/20 04:50 GGT 423 IU/L (8-55) H 09/29/20 04:50 AST 62 IU/L (10-42) H 09/29/20 04:50 ALT 51 IU/L (10-60) 09/29/20 04:50 Alkaline Phosphatase 111 IU/L (42-121) 09/29/20 04:50 Ammonia 32.6 umol/L (7-35) 09/29/20 04:50 Troponin I High Sens 5.4 ng/L (2.3-19.7) 09/28/20 22:48 Total Protein 7.5 g/dL (6.7-8.2) 09/29/20 04:50 Albumin 3.0 g/dL (3.2-5.5) L 09/29/20 04:50 Globulin 4.5 g/dL (2.1-4.2) H 09/29/20 04:50 Albumin/Globulin Ratio 0.7 (1.0-2.2) L 09/29/20 04:50 Lipase 54 U/L (22-51) H 09/28/20 19:34 Vitamin B12 791 pg/mL (180-914) 09/29/20 04:50 Folate 12.09 ng/mL (5.90 - >24.8) 09/29/20 04:50 TSH 2.77 uIU/mL (0.34-5.60) 09/28/20 19:34 Urine Color YELLOW 09/28/20 23:43 Urine Clarity CLEAR (CLEAR) 09/28/20 23:43 Urine pH 6.5 PH (5.0-7.5) 09/28/20 23:43 Ur Specific [place] 1.010 (1.002-1.030) 09/28/20 23:43 Urine Protein NEGATIVE mg/dL (NEGATIVE) 09/28/20 23:43 Urine Glucose (UA) 250 mg/dL (NEGATIVE) H 09/28/20 23:43 Urine Ketones NEGATIVE mg/dL (NEGATIVE) 09/28/20 23:43 Urine Occult Blood NEGATIVE (NEGATIVE) 09/28/20 23:43 Urine Nitrite NEGATIVE (NEGATIVE) 09/28/20 23:43 Urine Bilirubin NEGATIVE (NEGATIVE) 09/28/20 23:43 Urine Urobilinogen 0.2 (NORMAL) E.U./dL (NORMAL) 09/28/20 23:43 Ur Leukocyte Esterase NEGATIVE (NEGATIVE) 09/28/20 23:43 Ur Microscopic Review NOT INDICATED 09/28/20 23:43 Urine Culture Comments NOT INDICATED 09/28/20 23:43 Nasal Adenovirus (PCR) NOT DETECTED 09/28/20 20:36 Nasal B. parapertussis DNA (PCR) NOT DETECTED 09/28/20 20:36 Nasal Coronavir 229E PCR NOT DETECTED 09/28/20 20:36 Nasal Coronavir HKU1 PCR NOT DETECTED 09/28/20 20:36 Nasal Coronavir NL63 PCR NOT DETECTED 09/28/20 20:36 Nasal Coronavir OC43 PCR NOT DETECTED 09/28/20 20:36 Nasal Enterovir/Rhinovir PCR NOT DETECTED 09/28/20 20:36 Nasal Influenza B PCR NOT DETECTED 09/28/20 20:36 Nasal Influenza A PCR NOT DETECTED 09/28/20 20:36 Nasal Parainfluen 1 PCR NOT DETECTED 09/28/20 20:36 Nasal Parainfluen 2 PCR NOT DETECTED 09/28/20 20:36 Nasal Parainfluen 3 PCR NOT DETECTED 09/28/20 20:36 Nasal Parainfluen 4 PCR NOT DETECTED 09/28/20 20:36 Nasal RSV (PCR) NOT DETECTED 09/28/20 20:36 Nasal B.pertussis DNA PCR NOT DETECTED 09/28/20 20:36 Nasal C.pneumoniae (PCR) NOT DETECTED 09/28/20 20:36 Tyler Human Metapneumo PCR NOT DETECTED 09/28/20 20:36 Nasal M.pneumoniae (PCR) NOT DETECTED 09/28/20 20:36 Nasal SARS-CoV-2 (PCR) NOT DETECTED 09/28/20 20:36 Stl Occult Blood (IFOB) POSITIVE (NEGATIVE) A 09/29/20 07:30 Urine Opiates Screen NEGATIVE (NEGATIVE) 09/28/20 23:43 Ur Oxycodone Screen NEGATIVE (NEGATIVE) 09/28/20 23:43 Urine Methadone Screen NEGATIVE (NEGATIVE) 09/28/20 23:43 Ur Propoxyphene Screen NEGATIVE (NEGATIVE) 09/28/20 23:43 Ur Barbiturates Screen NEGATIVE (NEGATIVE) 09/28/20 23:43 Ur Tricyclics Screen NEGATIVE (NEGATIVE) 09/28/20 23:43 Ur Phencyclidine Scrn NEGATIVE (NEGATIVE) 09/28/20 23:43 Ur Amphetamine Screen NEGATIVE (NEGATIVE) 09/28/20 23:43 U Methamphetamines Scrn NEGATIVE (NEGATIVE) 09/28/20 23:43 U Benzodiazepines Scrn NEGATIVE (NEGATIVE) 09/28/20 23:43 Urine Cocaine Screen NEGATIVE (NEGATIVE) 09/28/20 23:43 U Cannabinoids Screen NEGATIVE (NEGATIVE) 09/28/20 23:43 Ethyl Alcohol 213.6 mg/dL 09/28/20 19:34 - Procedures Procedures: Procedures DETACHMENT AT RIGHT LOWER LEG, HIGH, OPEN APPROACH (08/18/17) TRANSFUSE NONAUT RED BLOOD CELLS IN PERIPH VEIN, PERC (08/18/17) ABX Reporting Has patient been on IV antibiotics over the past 48 hours?: No
[2020-09-29] MEDS: ZINC OXIDE 20% OINT 30 GM TUBE TOP PRN (19:27)
[2020-09-29] MEDS: carvediloL 12.5 MG TABLET PO SCH (20:56)
[2020-09-29] MEDS: ATORVASTATIN 40 MG TABLET PO SCH (20:56)
[2020-09-29] MEDS ORDERED: INSULIN GLARGINE 300 UNIT/3 ML PEN SUBQ SCH (21:00)
[2020-09-29] MEDS: diphenhydrAMINE 25 MG CAPSULE PO PRN (23:01)
[2020-09-30] MEDS: SODIUM CHLORIDE FLUSH 0.9% 10 ML SYRINGE IVP SCH ×3 (00:55→18:36)
[2020-09-30] MEDS: ZINC OXIDE 20% OINT 30 GM TUBE TOP PRN (00:55)
[2020-09-30] MEDS: HYDROcod/ACETAM 5/325 MG TABLET PO PRN ×4 (00:55→16:26)
[2020-09-30] MEDS: GABAPENTIN 400 MG CAPSULE PO SCH ×3 (05:59→21:16)
[2020-09-30 08:12] LABS: BASOPHILS # (AUTO) 0.1 10^3/uL (0.0-0.1); BASOPHILS % (AUTO) 1.1 %; EOSINOPHILS # (AUTO) 0.1 10^3/uL (0.0-0.7); HCT - HEMATOCRIT 36.3 % (42.0-52.0); HGB - HEMOGLOBIN 11.9 g/dL (14.0-18.0); LYMPHOCYTES # (AUTO) 1.5 10^3/uL (1.5-3.5); LYMPHOCYTES % (AUTO) 22.2 %; MEAN CORPUSCULAR HEMOGLOBIN 32.2 pg (27.0-31.0); MEAN CORPUSCULAR HGB CONC 32.8 g/dL (32.0-36.0); MEAN CORPUSCULAR VOLUME 98.4 fL (80.0-94.0); MEAN PLATELET VOLUME 8.8 fL (7.4-11.4); MONOCYTES # (AUTO) 0.8 10^3/uL (0.0-1.0); MONOCYTES % (AUTO) 12.8 %; NEUTROPHILS % (AUTO) 61.6 %; PLT - PLATELET COUNT 122 10^3/uL (130-450); RED BLOOD COUNT 3.69 10^6/uL (4.70-6.10); RED CELL DISTRIBUTION WIDTH 13.1 % (12.0-15.0); WHITE BLOOD COUNT 6.5 x10^3/uL (4.8-10.8)
[2020-09-30 08:19] LABS: CALCIUM 8.8 mg/dL (8.5-10.3); CREATININE 1.2 mg/dL (0.6-1.2); POTASSIUM 4.6 mmol/L (3.5-5.0)
[2020-09-30] MEDS: carvediloL 12.5 MG TABLET PO SCH ×2 (08:26→21:16)
[2020-09-30] MEDS: PANTOPRAZOLE 40 MG TABLET PO SCH (08:26)
[2020-09-30] MEDS: LOSARTAN 50 MG TABLET PO SCH (08:26)
[2020-09-30] MEDS: TAMSULOSIN 0.4 MG CAPSULE PO SCH (08:26)
[2020-09-30] MEDS: DOCUSATE SODIUM 100 MG CAPSULE PO SCH ×2 (08:27→21:17)
[2020-09-30] MEDS: SPIRONOLACTONE 25 MG TABLET PO SCH (08:27)
[2020-09-30] MEDS: THIAMINE 100 MG TABLET PO SCH (08:27)
[2020-09-30] MEDS: ASPIRIN EC 81 MG TABLET PO SCH (08:27)
[2020-09-30] MEDS: ENOXAPARIN 40 MG/0.4 ML SYRINGE SUBQ SCH (08:33)
[2020-09-30] MEDS: INSULIN ASPART 300 UNIT/3 ML PEN SUBQ SCH ×4 (08:33→21:20)
[2020-09-30] MEDS ORDERED: HYDROmorphone 1 MG/ML CARPUJECT IVP PRN (09:02)
--- NOTE | 2020-09-30 09:04 | PROVIDER PROGRESS NOTE ---
Assessment/Plan - Problem List (1) Hematuria Assessment/Plan: A Aragon catheter was placed. Patient was started on Flomax. The patient's urine was initially blood-tinged pink. However over the course of the day it became lawrence red. CT scan of the abdomen pelvis showed small 2 to 3 mm nonobstructing bilateral renal stones. There was no hydronephrosis. It showed irregular thickening of the urinary bladder wall which could be due to inflammatory or neoplastic process. Urology consult for cystoscopy was recommended. I spoke to Dr. Mcclure with [facility] urology who advised to keep the Aragon catheter in place and intermittent bladder irrigations. Further that when the bleeding improved the patient could be discharged home with the Aragon in place to follow-up with urology in the outpatient setting in 2 weeks. He pointed out that a concern for possible transfer to another facility would be if there is significant blood clots such that there is no urine flow in the aragon (2) Urinary retention Assessment/Plan: Suspect BPH. A Aragon catheter was placed. Patient was started on Flomax. He was kept and made inpatient due to the urinary retention. CT scan of the abdomen pelvis showed small 2 to 3 mm nonobstructing bilateral renal stones. There was no hydronephrosis. It showed irregular thickening of the urinary bladder wall which could be due to inflammatory or neoplastic process. Urology consult for cystoscopy was recommended. (3) Syncope and collapse Assessment/Plan: Resolved Possibly due to dehydration. Patient's blood pressure upon presentation was 77/40. Patient has received IV hydration. Blood pressure is currently 161/78. He is producing urine adequately. 2D echocardiogram showed high cardiac output with an ejection fraction of 70 to 75% suggestive of hypovolemia. Overall left ventricular systolic function was normal. There was impaired relaxation consistent with grade 1 diastolic dysfunction. There was no regional wall motion abnormality. There was no significant valvular disease. (4) Confusion Assessment/Plan: Resolved. Likely due to alcohol intoxication. Patient's mentation is back to baseline. He is communicating without any difficulties. (6) Insulin dependent diabetes mellitus Assessment/Plan: HgA1C is 10.4 Patient supposedly takes lantus 110 units subq bid Lantus 50 units subcu twice daily ordered today. (7) Acute kidney injury superimposed on chronic kidney disease Assessment/Plan: Resolved. Likely due to hypovolemia/ dehydration. Today is 1.2 with an estimated GFR of 59. (8) Hx of coronary artery disease Assessment/Plan: On carvedilol, MINDY inhibitor, aspirin, statin, losartan and spironolactone. (9) Hyponatremia Assessment/Plan: Sodium today was 134. We will continue to monitor. (10) Anemia Assessment/Plan: Hemoglobin has been stable at 11.9. We will continue to monitor. On Protonix 40 mg p.o. daily. He may receive an endoscopy in the outpatient setting - Current Meds Current Meds: Current Medications Generic Name Dose Route Start Last Admin Trade Name Freq PRN Reason Stop Dose Admin Acetaminophen 650 mg 09/28/20 21:56 09/29/20 04:49 Acetaminophen 325 Mg Tablet PO 650 mg Q4HR PRN Administration Pain or Fever > 38C (100.4F) Hydrocodone Bitart/Acetaminophen 1 tab 09/29/20 08:59 09/30/20 08:26 Hydrocod/Acetam 5/325 Mg Tablet PO 1 tab Q4HR PRN Administration PAIN Aspirin 81 mg 09/29/20 09:00 09/30/20 08:27 Aspirin Ec 81 Mg Tablet PO 81 mg DAILY CATIE Administration Atorvastatin Calcium 40 mg 09/28/20 23:00 09/29/20 20:56 Atorvastatin 40 Mg Tablet PO 40 mg HS CATIE Administration Carvedilol 25 mg 09/29/20 21:00 09/30/20 08:26 Carvedilol 12.5 Mg Tablet PO 25 mg BID CATIE Administration Diphenhydramine HCl 25 mg 09/29/20 22:29 09/29/20 23:01 Diphenhydramine 25 Mg Capsule PO 25 mg Q8HR PRN Administration ITCHING Docusate Sodium 100 mg 09/29/20 01:07 09/30/20 08:27 Docusate Sodium 100 Mg Capsule PO 100 mg BID CATIE Administration Enoxaparin Sodium 40 mg 09/29/20 09:00 09/30/20 08:33 Enoxaparin 40 Mg/0.4 Ml Syringe SUBQ 40 mg DAILY CATIE Administration Gabapentin 400 mg 09/28/20 23:50 09/30/20 05:59 Gabapentin 400 Mg Capsule PO 400 mg TID CATIE Administration Insulin Aspart 1 - 5 unit 09/29/20 08:00 09/30/20 08:33 Insulin Aspart 300 Unit/3 Ml Pen SUBQ 3 unit 0800,1200,1700,2100 CATIE Administration Protocol Losartan Potassium 50 mg 09/30/20 09:00 09/30/20 08:26 Losartan 50 Mg Tablet PO 50 mg DAILY CATIE Administration Multi-Ingredient Ointment 1 applic 09/29/20 06:58 09/30/20 00:55 Zinc Oxide 20% Oint 30 Gm Tube TOP 1 applic PRN PRN Administration Skin Care Pantoprazole Sodium 40 mg 09/29/20 09:00 09/30/20 08:26 Pantoprazole 40 Mg Tablet PO 40 mg DAILY CATIE Administration Sodium Chloride 10 ml 09/29/20 01:00 09/30/20 08:27 Sodium Chloride Flush 0.9% 10 Ml Syringe IVP 10 ml 0100,0900,1700 CATIE Administration Spironolactone 12.5 mg 09/29/20 09:00 09/30/20 08:27 Spironolactone 25 Mg Tablet PO 12.5 mg DAILY CATIE Administration Tamsulosin HCl 0.4 mg 09/29/20 12:00 09/30/20 08:26 Tamsulosin 0.4 Mg Capsule PO 0.4 mg DAILY CATIE Administration Thiamine HCl 100 mg 09/29/20 09:00 09/30/20 08:27 Thiamine 100 Mg Tablet PO 100 mg DAILY CATIE Administration - Lab Result Fish Bone Diagrams: 10/01/20 04:54 10/01/20 14:59 - Additional Planning My Orders: My Active Orders 09/29/20 08:59 HYDROcod/ACETAM 5/325 [[place] 5/325] 1 tab PO Q4HR PRN 09/29/20 11:11 Straight Catheter Insertion [RC] PRN 09/29/20 12:00 Tamsulosin [Flomax] 0.4 mg PO DAILY 09/29/20 18:02 Aragon Insertion [RC] QSHIFT 09/30/20 08:58 ABDOMEN/PELVIS W [CT] Stat 09/30/20 09:00 Insulin Glargine [Lantus Solostar] 50 unit SUBQ BID 09/30/20 09:02 Admit [Admit \ Transfer \ Status] [RC] .ONCE HYDROmorphone 1MG CARP [Dilaudid 1Mg Carp] 1 mg IVP Q3HR PRN 10/01/20 05:00 BMP - BASIC METABOLIC PANEL [CHEM] DAILYLAB CBC - COMP BLD CT W/AUTO DIFF [HEME] DAILYLAB Subjective - Subjective Patient Reports: Other (Patient complained of knee pain, back pain and abdominal pain. Urine in aragon catheter is still blood-tinged.) Objective Vital Signs: Vital Signs - 24 hr 09/29/20 09/29/20 09/29/20 10:58 15:32 21:00 Temperature 36.9 C 37.1 C 36.7 C Heart Rate [ 88 87 95 Brachial] Respiratory 20 19 20 Rate Blood Pressure 166/83 H 161/78 H 154/73 H [Right Brachial artery] O2 Saturation 98 98 95 09/30/20 09/30/20 09/30/20 00:05 05:00 08:16 Temperature 36.4 C L 36.4 C L 36.4 C L Heart Rate [ 80 77 78 Brachial] Respiratory 14 16 14 Rate Blood Pressure 138/63 H 131/82 H 126/78 [Right Brachial artery] O2 Saturation 96 99 96 Oxygen O2 Source Room air I&O (Last 24 Hrs): Intake and Output Totals x24h 09/28/20 09/29/20 09/30/20 23:59 23:59 23:59 Intake Total 1000 3077 360 Output Total 8650 650 Balance 1000 -5570 -290 General: Alert, Oriented x3, Moderate distress HEENT: PERRLA, EOMI Neck: Supple, No JVD Neuro: Alert, Non Focal, Oriented Times 3 Cardiovascular: Regular rate Respiratory: Chest non-tender, No respiratory distress, Breath sounds nml Abdomen: Normal bowel sounds, Soft, Other (obese abdomen, tender to palpation) Extremities: Other (Dusky appearing left lower extremity) Skin: No rashes - Results Results: Laboratory Results WBC 6.5 x10^3/uL (4.8-10.8) 09/30/20 08:03 RBC 3.69 10^6/uL (4.70-6.10) L 09/30/20 08:03 Hgb 11.9 g/dL (14.0-18.0) L 09/30/20 08:03 Hct 36.3 % (42.0-52.0) L 09/30/20 08:03 MCV 98.4 fL (80.0-94.0) H 09/30/20 08:03 MCH 32.2 pg (27.0-31.0) H 09/30/20 08:03 MCHC 32.8 g/dL (32.0-36.0) 09/30/20 08:03 RDW 13.1 % (12.0-15.0) 09/30/20 08:03 Plt Count 122 10^3/uL (130-450) L 09/30/20 08:03 MPV 8.8 fL (7.4-11.4) 09/30/20 08:03 Neut # (Auto) 4.0 10^3/uL (1.5-6.6) 09/30/20 08:03 Lymph # (Auto) 1.5 10^3/uL (1.5-3.5) 09/30/20 08:03 [place] # (Auto) 0.8 10^3/uL (0.0-1.0) 09/30/20 08:03 Eos # (Auto) 0.1 10^3/uL (0.0-0.7) 09/30/20 08:03 Baso # (Auto) 0.1 10^3/uL (0.0-0.1) 09/30/20 08:03 Absolute Nucleated RBC 0.00 x10^3/uL 09/30/20 08:03 Nucleated RBC % 0.0 /100WBC 09/30/20 08:03 PT 11.9 secs (9.9-12.6) 09/28/20 19:34 INR 1.1 (0.8-1.2) 09/28/20 19:34 D-Dimer 269.0 ng/mL (200.0-255.0) H 09/28/20 19:34 Sodium 134 mmol/L (135-145) L 09/30/20 08:03 Potassium 4.6 mmol/L (3.5-5.0) 09/30/20 08:03 Chloride 102 mmol/L (101-111) 09/30/20 08:03 Carbon Dioxide 23 mmol/L (21-32) 09/30/20 08:03 Anion Gap 9.0 (6-13) 09/30/20 08:03 BUN 27 mg/dL (6-20) H 09/30/20 08:03 Creatinine 1.2 mg/dL (0.6-1.2) 09/30/20 08:03 Estimated GFR (MDRD) 59 (>89) L 09/30/20 08:03 Glucose 220 mg/dL (70-100) H 09/30/20 08:03 Estimat Average Glucose 252 mg/dL (70-100) H 09/29/20 04:50 Hemoglobin A1c % 10.4 % (4.27-6.07) H 09/29/20 04:50 Calcium 8.8 mg/dL (8.5-10.3) 09/30/20 08:03 Phosphorus 3.4 mg/dL (2.5-4.6) 09/29/20 04:50 Magnesium 2.4 mg/dL (1.7-2.8) 09/29/20 04:50 Iron 109 ug/dL (45-182) 09/29/20 04:50 TIBC 316 ug/dL (250-450) 09/29/20 04:50 % Saturation 34 % (20-50) 09/29/20 04:50 Transferrin 226 mg/dL (180-329) 09/29/20 04:50 Total Bilirubin 0.9 mg/dL (0.2-1.0) 09/29/20 04:50 GGT 423 IU/L (8-55) H 09/29/20 04:50 AST 62 IU/L (10-42) H 09/29/20 04:50 ALT 51 IU/L (10-60) 09/29/20 04:50 Alkaline Phosphatase 111 IU/L (42-121) 09/29/20 04:50 Ammonia 32.6 umol/L (7-35) 09/29/20 04:50 Troponin I High Sens 5.4 ng/L (2.3-19.7) 09/28/20 22:48 Total Protein 7.5 g/dL (6.7-8.2) 09/29/20 04:50 Albumin 3.0 g/dL (3.2-5.5) L 09/29/20 04:50 Globulin 4.5 g/dL (2.1-4.2) H 09/29/20 04:50 Albumin/Globulin Ratio 0.7 (1.0-2.2) L 09/29/20 04:50 Lipase 54 U/L (22-51) H 09/28/20 19:34 Vitamin B12 791 pg/mL (180-914) 09/29/20 04:50 Folate 12.09 ng/mL (5.90 - >24.8) 09/29/20 04:50 TSH 2.77 uIU/mL (0.34-5.60) 09/28/20 19:34 Urine Color YELLOW 09/28/20 23:43 Urine Clarity CLEAR (CLEAR) 09/28/20 23:43 Urine pH 6.5 PH (5.0-7.5) 09/28/20 23:43 Ur Specific [place] 1.010 (1.002-1.030) 09/28/20 23:43 Urine Protein NEGATIVE mg/dL (NEGATIVE) 09/28/20 23:43 Urine Glucose (UA) 250 mg/dL (NEGATIVE) H 09/28/20 23:43 Urine Ketones NEGATIVE mg/dL (NEGATIVE) 09/28/20 23:43 Urine Occult Blood NEGATIVE (NEGATIVE) 09/28/20 23:43 Urine Nitrite NEGATIVE (NEGATIVE) 09/28/20 23:43 Urine Bilirubin NEGATIVE (NEGATIVE) 09/28/20 23:43 Urine Urobilinogen 0.2 (NORMAL) E.U./dL (NORMAL) 09/28/20 23:43 Ur Leukocyte Esterase NEGATIVE (NEGATIVE) 09/28/20 23:43 Ur Microscopic Review NOT INDICATED 09/28/20 23:43 Urine Culture Comments NOT INDICATED 09/28/20 23:43 Nasal Adenovirus (PCR) NOT DETECTED 09/28/20 20:36 Nasal B. parapertussis DNA (PCR) NOT DETECTED 09/28/20 20:36 Nasal Coronavir 229E PCR NOT DETECTED 09/28/20 20:36 Nasal Coronavir HKU1 PCR NOT DETECTED 09/28/20 20:36 Nasal Coronavir NL63 PCR NOT DETECTED 09/28/20 20:36 Nasal Coronavir OC43 PCR NOT DETECTED 09/28/20 20:36 Nasal Enterovir/Rhinovir PCR NOT DETECTED 09/28/20 20:36 Nasal Influenza B PCR NOT DETECTED 09/28/20 20:36 Nasal Influenza A PCR NOT DETECTED 09/28/20 20:36 Nasal Parainfluen 1 PCR NOT DETECTED 09/28/20 20:36 Nasal Parainfluen 2 PCR NOT DETECTED 09/28/20 20:36 Nasal Parainfluen 3 PCR NOT DETECTED 09/28/20 20:36 Nasal Parainfluen 4 PCR NOT DETECTED 09/28/20 20:36 Nasal RSV (PCR) NOT DETECTED 09/28/20 20:36 Nasal B.pertussis DNA PCR NOT DETECTED 09/28/20 20:36 Nasal C.pneumoniae (PCR) NOT DETECTED 09/28/20 20:36 [place] Human Metapneumo PCR NOT DETECTED 09/28/20 20:36 Nasal M.pneumoniae (PCR) NOT DETECTED 09/28/20 20:36 Nasal SARS-CoV-2 (PCR) NOT DETECTED 09/28/20 20:36 Stl Occult Blood (IFOB) POSITIVE (NEGATIVE) A 09/29/20 07:30 Urine Opiates Screen NEGATIVE (NEGATIVE) 09/28/20 23:43 Ur Oxycodone Screen NEGATIVE (NEGATIVE) 09/28/20 23:43 Urine Methadone Screen NEGATIVE (NEGATIVE) 09/28/20 23:43 Ur Propoxyphene Screen NEGATIVE (NEGATIVE) 09/28/20 23:43 Ur Barbiturates Screen NEGATIVE (NEGATIVE) 09/28/20 23:43 Ur Tricyclics Screen NEGATIVE (NEGATIVE) 09/28/20 23:43 Ur Phencyclidine Scrn NEGATIVE (NEGATIVE) 09/28/20 23:43 Ur Amphetamine Screen NEGATIVE (NEGATIVE) 09/28/20 23:43 U Methamphetamines Scrn NEGATIVE (NEGATIVE) 09/28/20 23:43 U Benzodiazepines Scrn NEGATIVE (NEGATIVE) 09/28/20 23:43 Urine Cocaine Screen NEGATIVE (NEGATIVE) 09/28/20 23:43 U Cannabinoids Screen NEGATIVE (NEGATIVE) 09/28/20 23:43 Ethyl Alcohol 213.6 mg/dL 09/28/20 19:34 - Procedures Procedures: Procedures DETACHMENT AT RIGHT LOWER LEG, HIGH, OPEN APPROACH (08/18/17) TRANSFUSE NONAUT RED BLOOD CELLS IN PERIPH VEIN, PERC (08/18/17) ABX Reporting Has patient been on IV antibiotics over the past 48 hours?: No
[2020-09-30] MEDS ORDERED: IOVERSOL 320 100 ML VIAL IVP ONE ×2 (09:14→12:21)
[2020-09-30] MEDS ORDERED: IOPAMIDOL-300 50 ML VIAL ONE (09:14)
[2020-09-30] MEDS: INSULIN GLARGINE 300 UNIT/3 ML PEN SUBQ SCH ×2 (10:18→21:19)
--- NOTE | 2020-09-30 11:33 | CT Report ---
PROCEDURE: Abdomen/Pelvis W INDICATIONS: abdominal pain, urinary retention CONTRAST: IV CONTRAST: Optiray 320 ml: 100 PO CONTRAST: Isovue 300 ml50 TECHNIQUE: After the administration of contrast, 5 mm thick sections acquired from the diaphragms to the sym physis. 5 mm thick coronal and sagittal reformats were acquired. For radiation dose reduction, the following was used: automated exposure control, adjustment of mA and/or kV according to patient size . COMPARISON: None. FINDINGS: Image quality: Excellent. ABDOMEN: Lung bases: Lung bases are clear. Heart size is normal. Dense atherosclerotic calcifications noted in the visualized coronary vasculature. Solid organs: Liver and spleen are normal in size and enhancement. Liver is slightly nodular margins . Gallbladder contains small gallstones Biliary system is non dilated. Pancreas enhances normally. No adrenal nodules. Multiple 2-3 mm nonobstructing stones noted in the superior and lower pole of th e right kidney. 2 mm nonobstructing stone in the superior pole of left kidney. Multiple bilateral sim ple renal cysts are noted. No hydronephrosis. Ureters follow normal course and have normal caliber. Peritoneum and bowel: Bowel loops demonstrate normal wall thickness and caliber. A few scattered col onic diverticuli without evidence of diverticulitis. No free fluid or air. The appendix is normal. Nodes and vessels: No retroperitoneal or mesenteric adenopathy by size criteria. Aorta and inferior vena cava are normal in size. Scattered atherosclerotic calcifications are noted in the abdominal an d pelvic vasculature. Miscellaneous: No ventral hernias. PELVIS: Genitourinary: Urinary bladder is decompressed by Mahan catheter. Urinary bladder wall is thickened u p to 1.6 cm and irregular which could be due to inflammation or infiltrating neoplastic process. Miscellaneous: No inguinal adenopathy. Bilateral fat-containing inguinal hernias. Bones: No suspicious bony lesions. Chronic appearing right fifth, sixth, seventh, eighth and ninth r ib fractures. No vertebral body compression fractures. Spine degenerative disc disease and facet art hropathy are noted. IMPRESSION: 1. Small, 2-3 mm nonobstructing bilateral renal stones. 2. No hydronephrosis. 3. Irregular thickening of the urinary bladder wall which could be due to inflammatory or neoplastic process. Recommend urology consultation for cystoscopy evaluation. 4. Cholelithiasis. 5. Colonic diverticulosis without evidence of diverticulitis. 6. Atherosclerosis including dense atherosclerotic calcifications in the visualized coronary vasculat ure. 7. Hepatic margins are slightly nodular suggesting hepatic cirrhosis. Please correlate with clinical and laboratory data. Reviewed by: Viki Núñez MD, PhD on 09/30/2020 11:32 AM PDT Approved by: Viki Núñez MD, PhD on 09/30/2020 11:32 AM PDT Station ID: [id number]
[2020-09-30] MEDS: diphenhydrAMINE 25 MG CAPSULE PO PRN ×2 (12:21→18:33)
[2020-09-30] MEDS ORDERED: IOPAMIDOL-300 50 ML VIAL PO ONE (12:21)
[2020-09-30] MEDS: ATORVASTATIN 40 MG TABLET PO SCH (21:17)
[2020-10-01] MEDS: HYDROcod/ACETAM 5/325 MG TABLET PO PRN ×4 (01:50→20:20)
[2020-10-01] MEDS: diphenhydrAMINE 25 MG CAPSULE PO PRN (01:50)
[2020-10-01] MEDS: SODIUM CHLORIDE FLUSH 0.9% 10 ML SYRINGE IVP SCH ×3 (01:53→16:56)
[2020-10-01 05:52] LABS: BASOPHILS # (AUTO) 0.1 10^3/uL (0.0-0.1); BASOPHILS % (AUTO) 0.8 %; EOSINOPHILS # (AUTO) 0.1 10^3/uL (0.0-0.7); EOSINOPHILS % (AUTO) 2.1 %; HCT - HEMATOCRIT 32.2 % (42.0-52.0); HGB - HEMOGLOBIN 10.6 g/dL (14.0-18.0); LYMPHOCYTES # (AUTO) 1.3 10^3/uL (1.5-3.5); LYMPHOCYTES % (AUTO) 21.7 %; MEAN CORPUSCULAR HGB CONC 32.9 g/dL (32.0-36.0); MEAN CORPUSCULAR VOLUME 97.3 fL (80.0-94.0); MEAN PLATELET VOLUME 8.7 fL (7.4-11.4); MONOCYTES # (AUTO) 0.6 10^3/uL (0.0-1.0); MONOCYTES % (AUTO) 10.5 %; NEUTROPHILS # (AUTO) 3.9 10^3/uL (1.5-6.6); NEUTROPHILS % (AUTO) 64.4 %; PLT - PLATELET COUNT 105 10^3/uL (130-450); RED BLOOD COUNT 3.31 10^6/uL (4.70-6.10); RED CELL DISTRIBUTION WIDTH 12.8 % (12.0-15.0); WHITE BLOOD COUNT 6.1 x10^3/uL (4.8-10.8)
[2020-10-01 06:07] LABS: CALCIUM 8.9 mg/dL (8.5-10.3); CREATININE 1.5 mg/dL (0.6-1.2); POTASSIUM 5.6 mmol/L (3.5-5.0)
[2020-10-01] MEDS: GABAPENTIN 400 MG CAPSULE PO SCH ×3 (06:34→21:03)
[2020-10-01] MEDS ORDERED: SODIUM CHLORIDE 0.9% 500 ML IV ONE (07:43)
--- NOTE | 2020-10-01 07:45 | PROVIDER PROGRESS NOTE ---
Assessment/Plan - Problem List (1) Hematuria Assessment/Plan: Hematuria persists. We will do intermittent bladder irrigations. When hematuria improves will discharge patient with Mahan catheter in place to andriy santizo with urology in the outpatient setting. (2) Urinary retention Assessment/Plan: Due to BPH. Patient is on Flomax. Mahan catheter is in place. Urology recommended keeping the Mahan catheter in place and discharging patient when stable to do so. The patient is to follow-up with urology in the outpatient setting in 2 weeks. (3) Acute kidney injury superimposed on chronic kidney disease Assessment/Plan: This was initially due to hypovolemia/dehydration. With IV hydration it improved/resolved. However today patient's creatinine was 1.5. Patient is receiving IV hydration. Anticipate improvement with morning labs. (4) Syncope and collapse Assessment/Plan: Resolved (5) Confusion Assessment/Plan: Resolved (6) Alcohol abuse Assessment/Plan: CIWA protocol in place. (7) Insulin dependent diabetes mellitus Assessment/Plan: HgA1C is 10.4 Patient supposedly takes lantus 110 units subq bid Lantus 50 units subcu twice daily was ordered. However his blood sugar has remained in the high 200s. Dose Lantus was increased to 75 units subcu twice daily today. (8) Hx of coronary artery disease Assessment/Plan: On carvedilol, MINDY inhibitor, aspirin, statin, losartan and spironolactone. (10) Anemia Assessment/Plan: Hemoglobin is 10.6. We will continue to monitor. On Protonix 40 mg p.o. daily. He may receive an endoscopy in the outpatient setting - Current Meds Current Meds: Current Medications Generic Name Dose Route Start Last Admin Trade Name Freq PRN Reason Stop Dose Admin Acetaminophen 650 mg 09/28/20 21:56 09/29/20 04:49 Acetaminophen 325 Mg Tablet PO 650 mg Q4HR PRN Administration Pain or Fever > 38C (100.4F) Hydrocodone Bitart/Acetaminophen 1 tab 09/29/20 08:59 10/01/20 06:34 Hydrocod/Acetam 5/325 Mg Tablet PO 1 tab Q4HR PRN Administration PAIN Aspirin 81 mg 09/29/20 09:00 09/30/20 08:27 Aspirin Ec 81 Mg Tablet PO 81 mg DAILY CATIE Administration Atorvastatin Calcium 40 mg 09/28/20 23:00 09/30/20 21:17 Atorvastatin 40 Mg Tablet PO 40 mg HS CATIE Administration Carvedilol 25 mg 09/29/20 21:00 09/30/20 21:16 Carvedilol 12.5 Mg Tablet PO 25 mg BID CATIE Administration Diphenhydramine HCl 25 mg 09/30/20 16:16 10/01/20 01:50 Diphenhydramine 25 Mg Capsule PO 25 mg Q6HR PRN Administration ITCHING Docusate Sodium 100 mg 09/29/20 01:07 09/30/20 21:17 Docusate Sodium 100 Mg Capsule PO 100 mg BID CATIE Administration Enoxaparin Sodium 40 mg 09/29/20 09:00 09/30/20 08:33 Enoxaparin 40 Mg/0.4 Ml Syringe SUBQ 40 mg DAILY CATIE Administration Gabapentin 400 mg 09/28/20 23:50 10/01/20 06:34 Gabapentin 400 Mg Capsule PO 400 mg TID CATIE Administration Hydromorphone HCl 1 mg 09/30/20 09:02 09/30/20 10:21 Hydromorphone 1 Mg/Ml Carpuject IVP 1 mg Q3HR PRN Administration PAIN Insulin Glargine 50 unit 09/30/20 09:00 09/30/20 21:19 Insulin Glargine 300 Unit/3 Ml Pen SUBQ 50 unit BID CATIE Administration Losartan Potassium 50 mg 09/30/20 09:00 09/30/20 08:26 Losartan 50 Mg Tablet PO 50 mg DAILY CATIE Administration Multi-Ingredient Ointment 1 applic 09/29/20 06:58 09/30/20 00:55 Zinc Oxide 20% Oint 30 Gm Tube TOP 1 applic PRN PRN Administration Skin Care Pantoprazole Sodium 40 mg 09/29/20 09:00 09/30/20 08:26 Pantoprazole 40 Mg Tablet PO 40 mg DAILY CATIE Administration Sodium Chloride 10 ml 09/29/20 01:00 10/01/20 01:53 Sodium Chloride Flush 0.9% 10 Ml Syringe IVP 10 ml 0100,0900,1700 CATIE Administration Spironolactone 12.5 mg 09/29/20 09:00 09/30/20 08:27 Spironolactone 25 Mg Tablet PO 12.5 mg DAILY CATIE Administration Tamsulosin HCl 0.4 mg 09/29/20 12:00 09/30/20 08:26 Tamsulosin 0.4 Mg Capsule PO 0.4 mg DAILY CATIE Administration Thiamine HCl 100 mg 09/29/20 09:00 09/30/20 08:27 Thiamine 100 Mg Tablet PO 100 mg DAILY CATIE Administration - Lab Result Fish Bone Diagrams: 10/01/20 04:54 10/01/20 14:59 - Additional Planning My Orders: My Active Orders 09/30/20 09:00 Insulin Glargine [Lantus Solostar] 50 unit SUBQ BID 09/30/20 09:02 HYDROmorphone 1MG CARP [Dilaudid 1Mg Carp] 1 mg IVP Q3HR PRN 09/30/20 16:16 diphenhydrAMINE [Benadryl] 25 mg PO Q6HR PRN 10/01/20 07:43 0.9% NS 500ML BOLUS X1 Sodium Chloride 0.9% [Normal Saline 0.9%] 500 ml IV ONCE 10/01/20 08:00 Insulin Aspart [NovoLOG] 1 - 9 unit SUBQ 0800,1200,1700,2100 NS 0.9% @ 125 mls/hr Sodium Chloride 0.9% [Normal Saline 0.9%] 1,000 ml IV 125 mls/hr 10/01/20 09:00 Senna [Senokot] 8.6 - 17.2 mg PO DAILY polyethylene glycoL 3350 [Miralax] 17 gm PO DAILY 10/02/20 05:00 BMP - BASIC METABOLIC PANEL [CHEM] DAILYLAB CBC - COMP BLD CT W/AUTO DIFF [HEME] DAILYLAB 10/03/20 05:00 BMP - BASIC METABOLIC PANEL [CHEM] DAILYLAB CBC - COMP BLD CT W/AUTO DIFF [HEME] DAILYLAB 10/04/20 05:00 BMP - BASIC METABOLIC PANEL [CHEM] DAILYLAB CBC - COMP BLD CT W/AUTO DIFF [HEME] DAILYLAB 10/05/20 05:00 BMP - BASIC METABOLIC PANEL [CHEM] DAILYLAB CBC - COMP BLD CT W/AUTO DIFF [HEME] DAILYLAB Subjective - Subjective Patient Reports: Other (Patient resting comfortably in bed at time of visit. He complained of itching all over, constipation and pain in his left knee which is due to chronic arthritis. Continues to have some hematuria.) Objective Vital Signs: Vital Signs - 24 hr 09/30/20 09/30/20 09/30/20 08:16 11:47 16:09 Temperature 36.4 C L 36.6 C 36.3 C L Heart Rate [ 78 70 65 Brachial] Respiratory 14 14 18 Rate Blood Pressure 126/78 159/79 H 141/67 H [Right Brachial artery] O2 Saturation 96 96 99 09/30/20 10/01/20 10/01/20 20:42 01:00 05:00 Temperature 36.3 C L 36.3 C L 36.6 C Heart Rate [ 71 70 76 Brachial] Respiratory 18 16 18 Rate Blood Pressure 137/64 H 137/81 H 145/74 H [Right Brachial artery] O2 Saturation 98 97 100 10/01/20 07:20 Temperature 36.4 C L Heart Rate [ Brachial] Respiratory 16 Rate Blood Pressure 86/55 L [Right Brachial artery] O2 Saturation 94 Oxygen O2 Source Room air I&O (Last 24 Hrs): Intake and Output Totals x24h 09/29/20 09/30/20 10/01/20 23:59 23:59 23:59 Intake Total 3077 1502 Output Total 8650 9254 1625 [id number] [phone] [phone] General: Alert, Oriented x3, Mild distress, Moderate distress HEENT: PERRLA, EOMI Neck: Supple, No JVD Neuro: Alert, Non Focal, Oriented Times 3 Cardiovascular: Regular rate, No murmurs Respiratory: Chest non-tender, No respiratory distress, Breath sounds nml Abdomen: Normal bowel sounds, Soft, Other (tenderness/ sensitivity to palpation) Extremities: Other (Dusky appearing left lower extremity) - Results Results: Laboratory Results WBC 6.1 x10^3/uL (4.8-10.8) 10/01/20 04:54 RBC 3.31 10^6/uL (4.70-6.10) L 10/01/20 04:54 Hgb 10.6 g/dL (14.0-18.0) L 10/01/20 04:54 Hct 32.2 % (42.0-52.0) L 10/01/20 04:54 MCV 97.3 fL (80.0-94.0) H 10/01/20 04:54 MCH 32.0 pg (27.0-31.0) H 10/01/20 04:54 MCHC 32.9 g/dL (32.0-36.0) 10/01/20 04:54 RDW 12.8 % (12.0-15.0) 10/01/20 04:54 Plt Count 105 10^3/uL (130-450) L 10/01/20 04:54 MPV 8.7 fL (7.4-11.4) 10/01/20 04:54 Neut # (Auto) 3.9 10^3/uL (1.5-6.6) 10/01/20 04:54 Lymph # (Auto) 1.3 10^3/uL (1.5-3.5) L 10/01/20 04:54 [place] # (Auto) 0.6 10^3/uL (0.0-1.0) 10/01/20 04:54 Eos # (Auto) 0.1 10^3/uL (0.0-0.7) 10/01/20 04:54 Baso # (Auto) 0.1 10^3/uL (0.0-0.1) 10/01/20 04:54 Absolute Nucleated RBC 0.00 x10^3/uL 10/01/20 04:54 Nucleated RBC % 0.0 /100WBC 10/01/20 04:54 PT 11.9 secs (9.9-12.6) 09/28/20 19:34 INR 1.1 (0.8-1.2) 09/28/20 19:34 D-Dimer 269.0 ng/mL (200.0-255.0) H 09/28/20 19:34 Sodium 130 mmol/L (135-145) L 10/01/20 04:54 Potassium 5.6 mmol/L (3.5-5.0) H 10/01/20 04:54 Chloride 103 mmol/L (101-111) 10/01/20 04:54 Carbon Dioxide 21 mmol/L (21-32) 10/01/20 04:54 Anion Gap 6.0 (6-13) 10/01/20 04:54 BUN 25 mg/dL (6-20) H 10/01/20 04:54 Creatinine 1.5 mg/dL (0.6-1.2) H 10/01/20 04:54 Estimated GFR (MDRD) 46 (>89) L 10/01/20 04:54 Glucose 289 mg/dL (70-100) H 10/01/20 04:54 Estimat Average Glucose 252 mg/dL (70-100) H 09/29/20 04:50 Hemoglobin A1c % 10.4 % (4.27-6.07) H 09/29/20 04:50 Calcium 8.9 mg/dL (8.5-10.3) 10/01/20 04:54 Phosphorus 3.4 mg/dL (2.5-4.6) 09/29/20 04:50 Magnesium 2.4 mg/dL (1.7-2.8) 09/29/20 04:50 Iron 109 ug/dL (45-182) 09/29/20 04:50 TIBC 316 ug/dL (250-450) 09/29/20 04:50 % Saturation 34 % (20-50) 09/29/20 04:50 Transferrin 226 mg/dL (180-329) 09/29/20 04:50 Total Bilirubin 0.9 mg/dL (0.2-1.0) 09/29/20 04:50 GGT 423 IU/L (8-55) H 09/29/20 04:50 AST 62 IU/L (10-42) H 09/29/20 04:50 ALT 51 IU/L (10-60) 09/29/20 04:50 Alkaline Phosphatase 111 IU/L (42-121) 09/29/20 04:50 Ammonia 32.6 umol/L (7-35) 09/29/20 04:50 Troponin I High Sens 5.4 ng/L (2.3-19.7) 09/28/20 22:48 Total Protein 7.5 g/dL (6.7-8.2) 09/29/20 04:50 Albumin 3.0 g/dL (3.2-5.5) L 09/29/20 04:50 Globulin 4.5 g/dL (2.1-4.2) H 09/29/20 04:50 Albumin/Globulin Ratio 0.7 (1.0-2.2) L 09/29/20 04:50 Lipase 54 U/L (22-51) H 09/28/20 19:34 Vitamin B12 791 pg/mL (180-914) 09/29/20 04:50 Folate 12.09 ng/mL (5.90 - >24.8) 09/29/20 04:50 TSH 2.77 uIU/mL (0.34-5.60) 09/28/20 19:34 Urine Color YELLOW 09/28/20 23:43 Urine Clarity CLEAR (CLEAR) 09/28/20 23:43 Urine pH 6.5 PH (5.0-7.5) 09/28/20 23:43 Ur Specific [place] 1.010 (1.002-1.030) 09/28/20 23:43 Urine Protein NEGATIVE mg/dL (NEGATIVE) 09/28/20 23:43 Urine Glucose (UA) 250 mg/dL (NEGATIVE) H 09/28/20 23:43 Urine Ketones NEGATIVE mg/dL (NEGATIVE) 09/28/20 23:43 Urine Occult Blood NEGATIVE (NEGATIVE) 09/28/20 23:43 Urine Nitrite NEGATIVE (NEGATIVE) 09/28/20 23:43 Urine Bilirubin NEGATIVE (NEGATIVE) 09/28/20 23:43 Urine Urobilinogen 0.2 (NORMAL) E.U./dL (NORMAL) 09/28/20 23:43 Ur Leukocyte Esterase NEGATIVE (NEGATIVE) 09/28/20 23:43 Ur Microscopic Review NOT INDICATED 09/28/20 23:43 Urine Culture Comments NOT INDICATED 09/28/20 23:43 Nasal Adenovirus (PCR) NOT DETECTED 09/28/20 20:36 Nasal B. parapertussis DNA (PCR) NOT DETECTED 09/28/20 20:36 Nasal Coronavir 229E PCR NOT DETECTED 09/28/20 20:36 Nasal Coronavir HKU1 PCR NOT DETECTED 09/28/20 20:36 Nasal Coronavir NL63 PCR NOT DETECTED 09/28/20 20:36 Nasal Coronavir OC43 PCR NOT DETECTED 09/28/20 20:36 Nasal Enterovir/Rhinovir PCR NOT DETECTED 09/28/20 20:36 Nasal Influenza B PCR NOT DETECTED 09/28/20 20:36 Nasal Influenza A PCR NOT DETECTED 09/28/20 20:36 Nasal Parainfluen 1 PCR NOT DETECTED 09/28/20 20:36 Nasal Parainfluen 2 PCR NOT DETECTED 09/28/20 20:36 Nasal Parainfluen 3 PCR NOT DETECTED 09/28/20 20:36 Nasal Parainfluen 4 PCR NOT DETECTED 09/28/20 20:36 Nasal RSV (PCR) NOT DETECTED 09/28/20 20:36 Nasal B.pertussis DNA PCR NOT DETECTED 09/28/20 20:36 Nasal C.pneumoniae (PCR) NOT DETECTED 09/28/20 20:36 Tyler Human Metapneumo PCR NOT DETECTED 09/28/20 20:36 Nasal M.pneumoniae (PCR) NOT DETECTED 09/28/20 20:36 Nasal SARS-CoV-2 (PCR) NOT DETECTED 09/28/20 20:36 Stl Occult Blood (IFOB) POSITIVE (NEGATIVE) A 09/29/20 07:30 Urine Opiates Screen NEGATIVE (NEGATIVE) 09/28/20 23:43 Ur Oxycodone Screen NEGATIVE (NEGATIVE) 09/28/20 23:43 Urine Methadone Screen NEGATIVE (NEGATIVE) 09/28/20 23:43 Ur Propoxyphene Screen NEGATIVE (NEGATIVE) 09/28/20 23:43 Ur Barbiturates Screen NEGATIVE (NEGATIVE) 09/28/20 23:43 Ur Tricyclics Screen NEGATIVE (NEGATIVE) 09/28/20 23:43 Ur Phencyclidine Scrn NEGATIVE (NEGATIVE) 09/28/20 23:43 Ur Amphetamine Screen NEGATIVE (NEGATIVE) 09/28/20 23:43 U Methamphetamines Scrn NEGATIVE (NEGATIVE) 09/28/20 23:43 U Benzodiazepines Scrn NEGATIVE (NEGATIVE) 09/28/20 23:43 Urine Cocaine Screen NEGATIVE (NEGATIVE) 09/28/20 23:43 U Cannabinoids Screen NEGATIVE (NEGATIVE) 09/28/20 23:43 Ethyl Alcohol 213.6 mg/dL 09/28/20 19:34 - Procedures Procedures: Procedures DETACHMENT AT RIGHT LOWER LEG, HIGH, OPEN APPROACH (08/18/17) TRANSFUSE NONAUT RED BLOOD CELLS IN PERIPH VEIN, PERC (08/18/17) ABX Reporting Has patient been on IV antibiotics over the past 48 hours?: No
[2020-10-01] MEDS: INSULIN ASPART 300 UNIT/3 ML PEN SUBQ SCH ×4 (07:58→21:32)
[2020-10-01] MEDS: TAMSULOSIN 0.4 MG CAPSULE PO SCH (08:00)
[2020-10-01] MEDS: PANTOPRAZOLE 40 MG TABLET PO SCH (08:00)
[2020-10-01] MEDS: ASPIRIN EC 81 MG TABLET PO SCH (08:00)
[2020-10-01] MEDS: THIAMINE 100 MG TABLET PO SCH (08:00)
[2020-10-01] MEDS: DOCUSATE SODIUM 100 MG CAPSULE PO SCH ×2 (08:00→20:55)
[2020-10-01] MEDS: carvediloL 12.5 MG TABLET PO SCH ×2 (08:01→20:55)
[2020-10-01] MEDS: ENOXAPARIN 40 MG/0.4 ML SYRINGE SUBQ SCH (08:01)
[2020-10-01] MEDS: LOSARTAN 50 MG TABLET PO SCH (08:01)
[2020-10-01] MEDS: INSULIN GLARGINE 300 UNIT/3 ML PEN SUBQ SCH ×2 (08:01→21:32)
[2020-10-01] MEDS: SENNA 8.6 MG TABLET PO SCH (08:02)
[2020-10-01] MEDS: polyethylene glycoL 3350 17 GM PACKET PO SCH (08:02)
[2020-10-01] MEDS: SPIRONOLACTONE 25 MG TABLET PO SCH (08:03)
[2020-10-01] MEDS ORDERED: diphenhydrAMINE 25 MG CAPSULE PO STA (08:54)
[2020-10-01] MEDS: LACTULOSE 10 GM /15 ML UDC PO SCH (09:33)
[2020-10-01] MEDS: SODIUM CHLORIDE 0.9% 1,000 ML IV SCH ×2 (10:26→16:56)
[2020-10-01] MEDS ORDERED: diphenhydrAMINE 25 MG CAPSULE PO PRN (13:30)
[2020-10-01 15:18] LABS: CALCIUM 8.8 mg/dL (8.5-10.3); CREATININE 1.7 mg/dL (0.6-1.2); POTASSIUM 5.1 mmol/L (3.5-5.0)
[2020-10-01] MEDS: ATORVASTATIN 40 MG TABLET PO SCH (20:55)
[2020-10-01] MEDS: ZINC OXIDE 20% OINT 30 GM TUBE TOP PRN (21:41)
[2020-10-02] MEDS: HYDROcod/ACETAM 5/325 MG TABLET PO PRN ×3 (00:36→12:53)
[2020-10-02] MEDS: SODIUM CHLORIDE 0.9% 1,000 ML IV SCH ×2 (00:39→08:35)
[2020-10-02] MEDS: SODIUM CHLORIDE FLUSH 0.9% 10 ML SYRINGE IVP SCH ×2 (00:52→08:37)
[2020-10-02 04:52] LABS: BASOPHILS # (AUTO) 0.1 10^3/uL (0.0-0.1); BASOPHILS % (AUTO) 1.1 %; EOSINOPHILS # (AUTO) 0.2 10^3/uL (0.0-0.7); EOSINOPHILS % (AUTO) 2.3 %; HGB - HEMOGLOBIN 10.3 g/dL (14.0-18.0); LYMPHOCYTES # (AUTO) 1.5 10^3/uL (1.5-3.5); MEAN CORPUSCULAR HEMOGLOBIN 31.2 pg (27.0-31.0); MEAN CORPUSCULAR HGB CONC 32.2 g/dL (32.0-36.0); MEAN PLATELET VOLUME 9.2 fL (7.4-11.4); MONOCYTES # (AUTO) 0.6 10^3/uL (0.0-1.0); MONOCYTES % (AUTO) 9.7 %; NEUTROPHILS % (AUTO) 62.4 %; PLT - PLATELET COUNT 121 10^3/uL (130-450); RED CELL DISTRIBUTION WIDTH 12.8 % (12.0-15.0); WHITE BLOOD COUNT 6.4 x10^3/uL (4.8-10.8)
[2020-10-02 05:06] LABS: CALCIUM 9.1 mg/dL (8.5-10.3); CREATININE 1.3 mg/dL (0.6-1.2); POTASSIUM 4.9 mmol/L (3.5-5.0)
[2020-10-02] MEDS: GABAPENTIN 400 MG CAPSULE PO SCH (06:13)
[2020-10-02 07:32] VITALS: BP 155/87
[2020-10-02] MEDS: carvediloL 12.5 MG TABLET PO SCH (07:54)
[2020-10-02] MEDS: DOCUSATE SODIUM 100 MG CAPSULE PO SCH (07:55)
[2020-10-02] MEDS: SPIRONOLACTONE 25 MG TABLET PO SCH (07:55)
[2020-10-02] MEDS: THIAMINE 100 MG TABLET PO SCH (07:55)
[2020-10-02] MEDS: PANTOPRAZOLE 40 MG TABLET PO SCH (07:56)
[2020-10-02] MEDS: LOSARTAN 50 MG TABLET PO SCH (07:57)
[2020-10-02] MEDS: ENOXAPARIN 40 MG/0.4 ML SYRINGE SUBQ SCH (07:59)
[2020-10-02] MEDS: LACTULOSE 10 GM /15 ML UDC PO SCH (07:59)
[2020-10-02] MEDS: ASPIRIN EC 81 MG TABLET PO SCH (07:59)
[2020-10-02] MEDS: INSULIN ASPART 300 UNIT/3 ML PEN SUBQ SCH ×2 (08:00→11:25)
[2020-10-02] MEDS: INSULIN GLARGINE 300 UNIT/3 ML PEN SUBQ SCH (08:01)
[2020-10-02] MEDS: polyethylene glycoL 3350 17 GM PACKET PO SCH (08:39)
[2020-10-02] MEDS: SENNA 8.6 MG TABLET PO SCH (08:39)
[2020-10-02] MEDS: TAMSULOSIN 0.4 MG CAPSULE PO SCH (09:05)
--- NOTE | 2020-10-02 11:14 | DISCHARGE SUMMARY ---
Discharge Summary Admit Date: 09/28/20 Discharge Date: 10/02/20 Discharging Provider: Atul Castellanos Primary Care Provider: Valeria Cabrales Code Status: Attempt Resuscitation Condition at Discharge: Stable Discharge Disposition: 01 Home, Self Care - DIAGNOSES Admission Diagnoses: Syncope and collapse Confusion Alcohol abuse Insulin-dependent diabetes mellitus Hyponatremia Acute kidney injury superimposed on chronic kidney disease History of coronary artery disease Anemia Constipation Wheelchair-bound Discharge Diagnoses with Status of Each Condition: Syncope and collapse: Acute. Resolved Confusion: Acute. Resolved Alcohol abuse Insulin-dependent diabetes mellitus: Chronic Hyponatremia Acute kidney injury superimposed on chronic kidney disease: Improved History of coronary artery disease: Chronic. Resumed home medications Anemia: Chronic. 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 There is a "man who lives with them and is also both of their caregiver". Patient states that he gets upset when his has odd behavior from her dementia which leads him to occasionally drink vodka in excess. He has had no alcohol for 3 days but admits that today he was drinking alot of vodka and also says that he and his were enjoying drinks together. The patient was sitting in his wheelchair near the caregiver man who lives with him and he started leaning forward toward a bookshelf and kept going forward and fell out of the wheelchair. The caregiver called an ambulance. When they arrived his blood pressure was 70/40 at the scene. The ambulance run sheet is not available to know his heart rate at the scene or glucose check at the scene. He received saline hydration en route to the ER. In the ER he was put into Trendelenburg. In the ER his blood pressure improved to 104 and subsequently to the 130s. He was initially confused and was answering with gibberish but eventually was oriented x3, was able to sit upright and converse. His labs came back showing serum alcohol level of 213, prerenal azotemia, mildly elevated AST, and elevated MCV. He is being placed in Observation status to evaluate causes for syncope and hypotension - HOSPITAL COURSE Hospital Course: Patient was placed on IV hydration upon admission which improved his blood pressures. His confusion was thought to be due to alcohol intoxication and this resolved over the cause of his hospital stay. By the time of discharge he was back to baseline. His acute kidney injury was thought to be due to hypovolemia and dehydration. With IV hydration this improved. He had urinary retention and after being straight cath 3 times he had a Mahan catheter placed. Subsequently he began experiencing hematuria. At its worst his urine was a lawrence red color. This steadily improved on the last day of his hospital stay. A CT scan of the abdomen raised the concern for irregular appearing bladder wall which was also thickened at 1.6 cm for which urology consult was advised. I spoke with Dr. Mcclure of [facility] urology who advised outpatient follow-up. The patient received Flomax during his hospital stay. On the day of discharge the Mahan catheter was removed. After 5 hours the patient voided and a subsequent bladder scan showed no urine in the bladder. The patient's A1c was 10.4. He reports using 100 units subcu twice daily of Lantus at home. He was seen by the hematology nurse educator. There was discussion about switching to Toujeo if his insurance would cover it. There was also discussion about fitting him with a continuous glucose monitor. The patient has an appointment scheduled with his primary care physician Dr. Valeria Cabrales. He has been advised to keep this appointment. He should also follow-up with the diabetic educators in the outpatient setting. He is being discharged home in stable condition. - ALLERGIES Allergies/Adverse Reactions: Allergies Allergy/AdvReac Type Severity Reaction Status Date / Time pregabalin [From Lyrica] Allergy Intermediate unknown Verified 10/12/18 11:06 simvastatin [From Zocor] Allergy Intermediate Nausea Verified 10/12/18 11:06 sulfamethoxazole Allergy Intermediate unknown Verified 10/12/18 11:06 [From Septra] trimethoprim [From Septra] Allergy Intermediate unknown Verified 10/12/18 11:06 tetracycline [Tetracycline] Allergy Rash Verified 10/12/18 11:06 - MEDICATIONS Home Medications: Ambulatory Orders Medication Instructions Recorded Confirmed Loratadine 10 mg PO DAILY 11/07/12 09/28/20 Aspirin [Aspirin EC] 81 mg PO DAILY #30 tablet. 08/26/17 09/28/20 Atorvastatin [Lipitor] 40 mg PO DAILY PM #30 08/26/17 09/28/20 Omeprazole [PriLOSEC] 20 mg PO DAILY #30 08/26/17 09/28/20 Spironolactone [Aldactone] 25 mg PO DAILY #30 tablet 08/26/17 09/28/20 carvediloL [Coreg] 25 mg PO BID #60 08/26/17 09/28/20 Furosemide 40 mg PO BID 12/30/17 09/29/20 Gabapentin [Neurontin] 300 mg PO TID 06/01/18 10/02/20 Losartan [Cozaar] 50 mg PO DAILY 06/01/18 10/02/20 Insulin Glargine [Lantus Solostar] 110 unit SUBQ BID 10/02/20 10/02/20 - PHYSICAL EXAM AT DISCHARGE General Appearance: positive: Mild distress (sentivity to touch in abdomen, arthritic pain in left knee, chronic back pain) Eyes Bilateral: positive: PERRL, EOMI ENT: positive: No signs of dehydration Neck: positive: No JVD, Trachea midline Respiratory: positive: Chest non-tender, No respiratory distress, Breath sounds nml. negative: Wheezes, Rales, Rhonchi Cardiovascular: positive: Regular rate & rhythm, No murmur Abdomen: positive: Nml bowel sounds Back: positive: Nml inspection Skin: positive: No rash, Warm, Dry Extremities: positive: Other (right BKA. left knee pain due to arthritis, dusky left lower extremity. 2 wounds dressed) Neurologic/Psychiatric: positive: Oriented x3, Mood/affect nml - LABS Result Diagrams: 10/02/20 04:00 10/02/20 04:00 - DIAGNOSTIC IMAGING Diagnostic Imaging Results Comments: CT abdomen pelvis done on 09/30/20 showed: Small 2 to 3 cm nonobstructing bilateral renal stones. No hydronephrosis. Irregular thickening of the urinary bladder wall which could be due to endometrial neoplastic process. Recommended urology consultation for cystoscopy evaluation Cholelithiasis. Colonic diverticulosis without evidence of diverticulitis Atherosclerosis including atherosclerotic calcifications in the visualized coronary vasculature Hepatic margins are slightly nodular suggesting hepatic cirrhosis 2D echocardiogram showed high cardiac output with an ejection fraction of 70 to 75% suggestive of hypovolemia. Overall left ventricular systolic function was normal. There was impaired relaxation consistent with grade 1 diastolic dysfunction. There was no regional wall motion abnormality. There was no significant valvular disease. - FOLLOW UP Follow Up: PCP: Dr Valeria Sierra as scheduled He will need his insulin readdressed. Possibly switching to Rigoberto PCP to make referral to Urology within 2 weeks regardin bladder thickness on CT scan of abd/pelvis Patient to follow up with hematology nurse educator for possible Continuous glucose monitoring device - TIME SPENT Time Spent in Discharge (Minutes): 25
--- NOTE | 2020-10-02 11:15 | Discharge Plan ---
Discharge Plan Problem Reviewed?: Yes Disposition: Home, Self Care Condition: Stable Prescriptions: Tamsulosin [Flomax] 0.4 mg PO DAILY 30 Days #30 cap Diet: Cardiac Activity Restrictions: Activity as Tolerated Assistance Devices: Wheelchair, Walker Instruction Topics: Syncope, Syncope Causes, Syncope Tx Prevent, Dehydration, Hyponatremia Dc, ED Dehydration, ED Hyponatremia Health Concerns: You were admitted on 09/28/20 for syncope and collapse. This was thought to be due to dehydration. A 2D echocardiogram was done and noted to be unremarkable. You were also confused at the time which was thought to be due to alcohol intoxication. Your symptoms resolved over the course of your hospital stay. You had acute kidney injury which was likely due to dehydration for which she received IV hydration and it improved/resolved. However in the course of your hospital stay you were having urinary retention. Subsequently a Mahan catheter was placed and you were started on tamsulosin/Flomax. He also started having blood in the urine. You continue to receive IV hydration and over the course of a couple of days your urine cleared up. I did a CT of the abdomen pelvis which showed a thickness of the urinary bladder which could be due to inflammation or neoplastic process. I spoke with urology Dr. Mcclure in [facility] who advised follow-up in the outpatient setting. You have been instructed about this. On the day of discharge the Mahan catheter was removed and you were able to urinate. Your bladder was scanned after urinating and noted to be empty. As a result you are being discharged home in stable condition. You will continue your home medications at home dose. You may follow-up with your primary care physician within 7-10 days. Plan of Treatment: You were admitted on 09/28/20 for syncope and collapse. This was thought to be due to dehydration. A 2D echocardiogram was done and noted to be unremarkable. You were also confused at the time which was thought to be due to alcohol intoxication. Your symptoms resolved over the course of your hospital stay. You had acute kidney injury which was likely due to dehydration for which she received IV hydration and it improved/resolved. However in the course of your hospital stay you were having urinary retention. Subsequently a Mahan catheter was placed and you were started on tamsulosin/Flomax. He also started having blood in the urine. You continue to receive IV hydration and over the course of a couple of days your urine cleared up. I did a CT of the abdomen pelvis which showed a thickness of the urinary bladder which could be due to inflammation or neoplastic process. I spoke with urology Dr. Ren Raderagit who advised follow-up in the outpatient setting. You have been instructed about this. On the day of discharge the Mahan catheter was removed and you were able to urinate. Your bladder was scanned after urinating and noted to be empty. As a result you are being discharged home in stable condition. You will continue your home medications at home dose. You may follow-up with your primary care physician within 7-10 days. Care Goals: You were admitted on 09/28/20 for syncope and collapse. This was thought to be due to dehydration. A 2D echocardiogram was done and noted to be unremarkable. You were also confused at the time which was thought to be due to alcohol intoxication. Your symptoms resolved over the course of your hospital stay. You had acute kidney injury which was likely due to dehydration for which she received IV hydration and it improved/resolved. However in the course of your hospital stay you were having urinary retention. Subsequently a Mahan catheter was placed and you were started on tamsulosin/Flomax. He also started having blood in the urine. You continue to receive IV hydration and over the course of a couple of days your urine cleared up. I did a CT of the abdomen pelvis which showed a thickness of the urinary bladder which could be due to inflammation or neoplastic process. I spoke with urology Dr. Ren Melendez who advised follow-up in the outpatient setting. You have been instructed about this. On the day of discharge the Mahan catheter was removed and you were able to urinate. Your bladder was scanned after urinating and noted to be empty. As a result you are being discharged home in stable condition. You will continue your home medications at home dose. You may follow-up with your primary care physician within 7-10 days. Assessment: You were admitted on 09/28/20 for syncope and collapse. This was thought to be due to dehydration. A 2D echocardiogram was done and noted to be unremarkable. You were also confused at the time which was thought to be due to alcohol intoxication. Your symptoms resolved over the course of your hospital stay. You had acute kidney injury which was likely due to dehydration for which she received IV hydration and it improved/resolved. However in the course of your hospital stay you were having urinary retention. Subsequently a Mahan catheter was placed and you were started on tamsulo sin/Flomax. He also started having blood in the urine. You continue to receive IV hydration and over the course of a couple of days your urine cleared up. I did a CT of the abdomen pelvis which showed a thickness of the urinary bladder which could be due to inflammation or neoplastic process. I spoke with urology Dr. Mcclure in [facility] who advised follow-up in the outpatient setting. You have been instructed about this. On the day of discharge the Mahan catheter was removed and you were able to urinate. Your bladder was scanned after urinating and noted to be empty. As a result you are being discharged home in stable condition. You will continue your home medications at home dose. You may follow-up with your primary care physician within 7-10 days. No Smoking: If you smoke, Please STOP! Call for help. Follow-up with: Valeria Cabrales MD [Primary Care Provider] -
== END 2020-10-02 13:30 | disposition home or self-care (01) | DRG 641 ==
LOC: EDUNIT# → EDBD → SUPCPDRO 19:09 → ED 19:09 → MS2 21:56 → OBSVTOIN 09-30 09:02
PROVIDERS: ADMIT Internal Medicine; ATTEND Internal Medicine
DX: R55 Syncope and collapse (principal); E87.1 Hypo-osmolality and hyponatremia; I95.9 Hypotension, unspecified; E86.0 Dehydration; N17.9 Acute kidney failure, unspecified; E86.1 Hypovolemia; R31.9 Hematuria, unspecified; R33.9 Retention of urine, unspecified; F10.129 Alcohol abuse with intoxication, unspecified; Y90.7 Blood alcohol level of 200-239 mg/100 ml; F10.10 Alcohol abuse, uncomplicated; I12.9 Hypertensive chronic kidney disease with stage 1 through stage 4 chronic kidney disease, or unspecified chronic kidney disease; N18.9 Chronic kidney disease, unspecified; D64.9 Anemia, unspecified; K59.00 Constipation, unspecified; K74.60 Unspecified cirrhosis of liver; L98.499 Non-pressure chronic ulcer of skin of other sites with unspecified severity; N20.0 Calculus of kidney; E11.649 Type 2 diabetes mellitus with hypoglycemia without coma; E11.22 Type 2 diabetes mellitus with diabetic chronic kidney disease; E11.51 Type 2 diabetes mellitus with diabetic peripheral angiopathy without gangrene; R41.0 Disorientation, unspecified; E11.42 Type 2 diabetes mellitus with diabetic polyneuropathy; J44.9 Chronic obstructive pulmonary disease, unspecified; R19.5 Other fecal abnormalities; I25.10 Atherosclerotic heart disease of native coronary artery without angina pectoris; K21.9 Gastro-esophageal reflux disease without esophagitis; E78.00 Pure hypercholesterolemia, unspecified; F41.0 Panic disorder [episodic paroxysmal anxiety]; F41.9 Anxiety disorder, unspecified; M79.7 Fibromyalgia; G89.29 Other chronic pain; M79.662 Pain in left lower leg; M54.9 Dorsalgia, unspecified; N40.1 Benign prostatic hyperplasia with lower urinary tract symptoms; R35.1 Nocturia; Z20.822 Contact with and (suspected) exposure to COVID-19; R35.0 Frequency of micturition; Z91.19 Patient's noncompliance with other medical treatment and regimen; E66.9 Obesity, unspecified; Z68.39 Body mass index [BMI] 39.0-39.9, adult; I25.2 Old myocardial infarction; Z99.3 Dependence on wheelchair; Z91.81 History of falling; Z79.82 Long term (current) use of aspirin; Z79.4 Long term (current) use of insulin; Z79.899 Other long term (current) drug therapy; Z89.511 Acquired absence of right leg below knee; Z95.5 Presence of coronary angioplasty implant and graft; R79.89 Other specified abnormal findings of blood chemistry; Z87.891 Personal history of nicotine dependence; Z87.442 Personal history of urinary calculi; Z89.022 Acquired absence of left finger(s)
CPT/HCPCS: 36415; 51701; 70450; 71045; 74177; 80048; 80053; 80306; 81003; 82140; 82274; 82607; 82746; 82977; 83036; 83540; 83690; 83735; 84100; 84443; 84466; 84484; 85025; 85379; 85610; 87631; 93005; 93306; 96372; 99281; 99285; A9270; G0378; G0480; J1170; J1650; J1815; Q9967; 0202U; 80320; 81001; 82272; 87086

== ENCOUNTER 2020-10-03 18:30 | Outpatient (CLI) | payer MEDICARE, OTHER | END 2020-10-03 18:31 | disposition critical access hospital (66) | LOC: EMS 18:30 | DX: R25.1 Tremor, unspecified (principal); R41.82 Altered mental status, unspecified; R11.10 Vomiting, unspecified; R04.0 Epistaxis; R06.02 Shortness of breath | CPT/HCPCS: A0425; A0429 ==

== ENCOUNTER 2020-10-03 18:50 | Inpatient (IN) | payer MEDICARE, OTHER ==
--- NOTE | 2020-10-03 19:22 | XRAY Report ---
PROCEDURE: Chest 1 View X-Ray INDICATIONS: fever TECHNIQUE: One view of the chest was acquired. COMPARISON: FINDINGS: Surgical changes and devices: None. Lungs and pleura: No pleural effusions or pneumothorax. Lungs are abnormal, with a generalized pulm onary edema pattern. Mediastinum: Mediastinal contours appear normal. Heart size is at the upper limits of normal. Bones and chest wall: No suspicious bony lesions. Overlying soft tissues appear unremarkable. IMPRESSION: Focal pneumonia is not seen but there is a generalized pulmonary edema pattern in this patient with v honorio large body habitus. Cardiogenic pulmonary edema may explain this appearance, but that would not e xplain the presence of fever. Focal pneumonia is not found. Reviewed by: Brayan Appiah MD on 10/03/2020 7:21 PM PDT Approved by: Brayan Appiah MD on 10/03/2020 7:21 PM PDT Station ID: [id number]
[2020-10-03] MEDS ORDERED: VANCOMYCIN INJ 2.5 GM in SODIUM CHLORIDE 0.9% 500 ML IV STA (19:51)
[2020-10-03] MEDS ORDERED: metroNIDAZOLE 500 MG/100 ML 500 MG/100 ML BAG IV STA (19:51)
[2020-10-03] MEDS ORDERED: CEFEPIME 2 GM in SODIUM CHLORIDE 0.9% MINIBAG 100 ML IV STA (19:51)
--- NOTE | 2020-10-03 19:53 | ED Physician Documentation ---
History of Present Illness - Stated complaint Stated Complaint: CHILLS/ N/V - Chief complaint Chief Complaint: Resp - History obtained from History obtained from: Patient, EMS - Additonal information Additional information: 75-year-old gentleman was released from the hospital for dehydration. Returns encephalopathic with productive cough and fever we think starting today. History is limited because he is encephalopathic. Review of Systems Unable to obtain: Confused PD PAST MEDICAL HISTORY - Past Medical History Cardiovascular: Hypertension, High cholesterol, Coronary artery disease, Peripheral Vascular Disease, OR Respiratory: COPD, Shortness of breath Neuro: Peripheral neuropathy Endocrine/Autoimmune: Type 2 diabetes GI: GERD : Nocturia, Frequency, Kidney stones Psych: Anxiety, Panic attacks Musculoskeletal: Fibromyalgia, Chronic back pain - Past Surgical History Past Surgical History: Yes Ortho: Amputation (R lower extrem, due to osteo) Cardiovascular: Coronary stent HEENT: Cataracts - Present Medications Home Medications: Ambulatory Orders Medication Instructions Recorded Confirmed Loratadine 10 mg PO DAILY 11/07/12 09/28/20 Aspirin [Aspirin EC] 81 mg PO DAILY #30 tablet. 08/26/17 09/28/20 Atorvastatin [Lipitor] 40 mg PO DAILY PM #30 08/26/17 09/28/20 Omeprazole [PriLOSEC] 20 mg PO DAILY #30 08/26/17 09/28/20 Spironolactone [Aldactone] 25 mg PO DAILY #30 tablet 08/26/17 09/28/20 carvediloL [Coreg] 25 mg PO BID #60 08/26/17 09/28/20 Furosemide 40 mg PO BID 12/30/17 09/29/20 Gabapentin [Neurontin] 300 mg PO TID 06/01/18 10/02/20 Losartan [Cozaar] 50 mg PO DAILY 06/01/18 10/02/20 Insulin Glargine [Lantus Solostar] 110 unit SUBQ BID 10/02/20 10/02/20 Tamsulosin [Flomax] 0.4 mg PO DAILY 30 Days #30 cap 10/02/20 - Allergies Allergies/Adverse Reactions: Allergies Allergy/AdvReac Type Severity Reaction Status Date / Time pregabalin [From Lyrica] Allergy Intermediate unknown Verified 10/03/20 18:57 simvastatin [From Zocor] Allergy Intermediate Nausea Verified 10/03/20 18:57 sulfamethoxazole Allergy Intermediate unknown Verified 10/03/20 18:57 [From ] trimethoprim [From Septra] Allergy Intermediate unknown Verified 10/03/20 18:57 tetracycline [Tetracycline] Allergy Rash Verified 10/03/20 18:57 - Social History Does the pt smoke?: No Smoking Status: Former smoker Does the pt drink ETOH?: Yes Does the pt have substance abuse?: Yes - Immunizations Immunizations are current?: Yes - POLST Patient has POLST: No POLST Status: Full Code PD ED PE NORMAL - Vitals Vital signs reviewed: Yes - General General: No acute distress, Other (Alert and oriented to person and place but not time or events) - HEENT HEENT: PERRL, EOMI - Neck Neck: Supple, no meningeal sign, No bony TTP - Cardiac Cardiac: RRR, No murmur - Respiratory Respiratory: No respiratory distress, Clear bilaterally - Abdomen Abdomen: Normal bowel sounds, Soft, Non tender - Back Back: No CVA TTP - Derm Derm: Normal color, Warm and dry - Extremities Extremities: No edema, No calf tenderness / cord, Other (Status post right leg a mputation and some chronic wounds with poor healing on the left leg) Results - Vitals Vitals: Vital Signs - 24 hr 10/03/20 10/03/20 10/03/20 18:57 19:00 19:30 Temperature 38.9 C H Heart Rate 88 84 84 Respiratory 30 H 21 Rate Blood Pressure 122/85 H 143/70 H 133/67 H O2 Saturation 96 95 94 10/03/20 10/03/20 10/03/20 20:01 20:26 20:30 Temperature Heart Rate 86 85 88 Respiratory 20 14 16 Rate Blood Pressure 137/67 H 141/66 H O2 Saturation 94 96 96 10/03/20 20:51 Temperature 36.9 C Heart Rate 86 Respiratory Rate Blood Pressure 145/69 H O2 Saturation 96 Oxygen O2 Source Room air - Labs Labs: Laboratory Tests 10/03/20 10/03/20 10/03/20 19:47 19:47 19:47 WBC 7.7 RBC 3.00 L Hgb 9.6 L Hct 29.3 L MCV 97.7 H MCH 32.0 H MCHC 32.8 RDW 13.5 Plt Count 100 L MPV 9.1 Neut # (Auto) 6.6 Lymph # (Auto) 0.4 L Garfield # (Auto) 0.6 Eos # (Auto) 0.0 Baso # (Auto) 0.0 Absolute Nucleated RBC 0.00 Nucleated RBC % 0.0 Sodium 132 L Potassium 5.8 H Chloride 103 Carbon Dioxide 22 Anion Gap 7.0 BUN 25 H Creatinine 1.8 H Estimated GFR (MDRD) 37 L Glucose 264 H Lactic Acid 2.3 H Calcium 9.0 Total Bilirubin 1.0 AST 45 H ALT 36 Alkaline Phosphatase 104 Total Protein 7.7 Albumin 3.2 Globulin 4.5 H Albumin/Globulin Ratio 0.7 L Ethyl Alcohol < 5.0 - Rads (name of study) 1v chest Radiology: EMP read contemporaneously (poss edema, vs atypical PNA) 1v chest for line Radiology: EMP read contemporaneously (CVC in SVC without complication) Procedures - Central Line Central Line Preparation: Consent Obtained Central line location: Right IJ Central line type: Triple lumen Central line aftercare: Chlorhexidine disc placed, Secured, Placement confirmed, No pneumothorax, No complications, Bundle checklist complete, Pt tolerated well PD MEDICAL DECISION MAKING - ED course ED course: 75-year-old gentleman presents septic with tachypnea and fever. He is encephalopathic. Difficult for IV access and I personally placed a central line with verbal consent, broad-spectrum antibiotics ordered. 75-year-old recently discharged from hospital return septic and encephalopathic. Possible pulmonary source given his complaints, that said no clear pneumonia on x-ray. White blood cell count is normal. Lactate is elevated but not technically in septic shock. Given broad-spectrum antibiotics, cefepime, Flagyl, vancomycin. Spoke with Dr. Machado for admission at 8:50 PM. - Critical Care Time(min): 35 Time Includes: Direct patient care, Review records, Reassess patient, Document care, Coordinate care, Medical consult, See progress note Data interpretation: Labs, Pulse ox Procedures included in critical care time: Peripheral IV Procedures excluded from critical care time: Central IV - Sepsis Event Sepsis Onset Date: 10/03/20 Sepsis Onset Time: 19:53 Current Stage of Sepsis: Sepsis Initial Hypotension: Not hypotensive Possible source of Sepsis: Unknown Mental/Cognitive Status: Confused, Lethargic Reason for not giving 30ml/kg crystalloid fluids: Not in septic shock Departure - Departure Disposition: 66 [facility] DC/Xfer Clinical Impression: Sepsis Qualifiers: Sepsis type: sepsis due to unspecified organism Sepsis acute organ dysfunction status: with acute organ dysfunction Severe sepsis acute organ dysfunction type: encephalopathy Condition: Serious Discharge Date/Time: 10/03/20 21:39
[2020-10-03 19:59] LABS: BASOPHILS % (AUTO) 0.5 %; EOSINOPHILS % (AUTO) 0.3 %; HCT - HEMATOCRIT 29.3 % (42.0-52.0); HGB - HEMOGLOBIN 9.6 g/dL (14.0-18.0); LYMPHOCYTES # (AUTO) 0.4 10^3/uL (1.5-3.5); LYMPHOCYTES % (AUTO) 5.6 %; MEAN CORPUSCULAR HGB CONC 32.8 g/dL (32.0-36.0); MEAN CORPUSCULAR VOLUME 97.7 fL (80.0-94.0); MEAN PLATELET VOLUME 9.1 fL (7.4-11.4); MONOCYTES # (AUTO) 0.6 10^3/uL (0.0-1.0); MONOCYTES % (AUTO) 7.8 %; NEUTROPHILS # (AUTO) 6.6 10^3/uL (1.5-6.6); NEUTROPHILS % (AUTO) 85.3 %; PLT - PLATELET COUNT 100 10^3/uL (130-450); RED CELL DISTRIBUTION WIDTH 13.5 % (12.0-15.0); WHITE BLOOD COUNT 7.7 x10^3/uL (4.8-10.8)
[2020-10-03 20:10] LABS: LACTIC ACID, VENOUS 2.3 mmol/L (0.5-2.2)
[2020-10-03 20:11] LABS: ALBUMIN 3.2 g/dL (3.2-5.5); ALBUMIN/GLOBULIN RATIO 0.7 (1.0-2.2); ALKALINE PHOSPHATASE 104 IU/L (42-121); ALT ALANINE AMINOTRANSFERASE 36 IU/L (10-60); AST ASPARTATE AMINOTRANSFERASE 45 IU/L (10-42); BUN - BLOOD UREA NITROGEN 25 mg/dL (6-20); CARBON DIOXIDE - CO2 22 mmol/L (21-32); CHLORIDE 103 mmol/L (101-111); CREATININE 1.8 mg/dL (0.6-1.2); ETOH - ETHANOL < 5.0 mg/dL; GFR - MDRD 37 (>89); GLUCOSE 264 mg/dL (70-100); POTASSIUM 5.8 mmol/L (3.5-5.0); SODIUM 132 mmol/L (135-145); TOTAL PROTEIN 7.7 g/dL (6.7-8.2)
[2020-10-03] MEDS ORDERED: SODIUM CHLORIDE 0.9% 1,000 ML IV STA (20:25)
--- NOTE | 2020-10-03 20:34 | XRAY Report ---
PROCEDURE: Chest for Line Placement INDICATIONS: CVC TECHNIQUE: One view of the chest was acquired. COMPARISON: Chest single view 09/28/2020, and chest CT 10/12/2018 FINDINGS: Surgical changes and devices: Right internal jugular central line extends into the distal SVC.. Lungs and pleura: No pleural effusions or pneumothorax. Lungs are edematous. Mediastinum: Mediastinal contours appear normal. Heart size is at the upper limits of normal.. Bones and chest wall: No suspicious bony lesions. Overlying soft tissues appear unremarkable. IMPRESSION: Diffuse atypical pneumonia versus cardiogenic pulmonary edema. No pneumothorax seen. Quality of visua lization is limited by large body habitus. Central line extends into the distal SVC. No pneumothorax. Reviewed by: Brayan Appiah MD on 10/03/2020 8:33 PM PDT Approved by: Brayan Appiah MD on 10/03/2020 8:33 PM PDT Station ID: [id number]
[2020-10-03] MEDS ORDERED: VANCOMYCIN 1 GM VIAL ONE (21:11)
[2020-10-03] MEDS ORDERED: ONDANSETRON 4 MG/2 ML VIAL IVP PRN (22:12)
--- NOTE | 2020-10-03 22:25 | HISTORY & PHYSICAL EXAMINATION ---
History of Present Illness - Admitted From Admitted From:: ED - History Obtained From History obtained from: ED provider and records review - History of Present Illness HPI Comment/Other: This is a 75-year-old WM with history of IDDM, obesity, alcohol abuse with binging, CAD, PVD, R BKA for chronic oste, who was just discharged from this hospital yesterday. He had been admitted several days ago with an episode of syncope after alcohol binging, when EMS was called and he had a documented blood pressure at the scene of 70/40. He was treated for dehydration, intoxication, did not go through alcohol withdrawal, developed urinary retention and required straight caths x2 then finally a Mahan insertion which was complicated with several days of hematuria. He wanted the Mahan removed before he was discharged. He was therefore started on Flomax, did have removal of the Mahan and was able to urinate adequately and was discharged home yesterday. Today he became more confused, spiked a temperature of 38.9 and complained of a cough and shortness of breath. More details are not available because he was encephalopathic in the ED and could not give more descriptions. His serum tox showed no alcohol present. A Chest x-ray shows pulmonary edema versus atypical diffuse pneumonia but he is not desaturating. He received broad spectrum antibiotics in the ED, for a presumed Health-care associated pneumonia and [facility] was contacted for admission for sepsis with metabolic encephalopathy. He is again having urinary retention and feels fullness in his lower abdomen. A bladder scan shows 800+ cc of fluid. He is agreeable to have a Mahan inserted. Because of no urine output there has been no urinalysis done, to know if his sepsis has a urinary source or pulmonary source. History - Past Medical History Cardiovascular: reports: Hypertension, High cholesterol, Coronary artery disease, Peripheral Vascular Disease, [place] Respiratory: reports: COPD, Shortness of breath Neuro: reports: Peripheral neuropathy Endocrine/Autoimmune: reports: Type 2 diabetes GI: reports: GERD : reports: Nocturia, Frequency, Kidney stones Psych: reports: Anxiety, Panic attacks Musculoskeletal: reports: Fibromyalgia, Chronic back pain MRSA Hx?: No - Past Surgical History Ortho: reports: Amputation (R lower extrem, due to osteo) Cardiovascular: reports: Coronary stent HEENT: reports: Cataracts - Family & Social History Family History: Mother: , Diabetes, Type 2, Father: , CAD Living arrangement: At home Living Situation: With spouse/s.o., With caregiver(s) (A 50 y/o male lives with them, helps around the house and caregiving.) Social History Notes: The patient lives in [place] with his who has Alzheimer's dementia. He states that he is the primary caregiver for his . He is retired. He quit smoking in 2002 prior to that he was a pack-a-day smoker for close to 40 years. He states that he does continue to drink but has cut down on his drinking recently. He has used marijuana to try to deal with his pa in. He denies any other illicit drug use. - Substance History Use: Uses substance without health or social issues: Other (No cigarette use for 17 years.) Abuse: Recurrent use of substance despite neg consequences: Alcohol - POLST Patient has POLST: No POLST Status: Full Code Meds/Allgy - Home Medications Home Medications: Ambulatory Orders Medication Instructions Recorded Confirmed Loratadine 10 mg PO DAILY 11/07/12 09/28/20 Aspirin [Aspirin EC] 81 mg PO DAILY #30 tablet. 08/26/17 09/28/20 Atorvastatin [Lipitor] 40 mg PO DAILY PM #30 08/26/17 09/28/20 Omeprazole [PriLOSEC] 20 mg PO DAILY #30 08/26/17 09/28/20 Spironolactone [Aldactone] 25 mg PO DAILY #30 tablet 08/26/17 09/28/20 carvediloL [Coreg] 25 mg PO BID #60 08/26/17 09/28/20 Furosemide 40 mg PO BID 12/30/17 09/29/20 Gabapentin [Neurontin] 300 mg PO TID 06/01/18 10/02/20 Losartan [Cozaar] 50 mg PO DAILY 06/01/18 10/02/20 Insulin Glargine [Lantus Solostar] 110 unit SUBQ BID 10/02/20 10/02/20 Tamsulosin [Flomax] 0.4 mg PO DAILY 30 Days #30 cap 10/02/20 - Allergies Allergies/Adverse Reactions: Allergies Allergy/AdvReac Type Severity Reaction Status Date / Time pregabalin [From Lyrica] Allergy Intermediate unknown Verified 10/03/20 18:57 simvastatin [From Zocor] Allergy Intermediate Nausea Verified 10/03/20 18:57 sulfamethoxazole Allergy Intermediate unknown Verified 10/03/20 18:57 [From ] trimethoprim [From Novra] Allergy Intermediate unknown Verified 10/03/20 18:57 tetracycline [Tetracycline] Allergy Rash Verified 10/03/20 18:57 Review of Systems - Constitutional Constitutional: reports: Fever - Respiratory Respiratory: reports: Cough, SOB at rest - Genitourinary Genitourinary: reports: Other (Feels full and cannot empty his bladder) - All Other Systems All Other Systems: reports: Reviewed and negative Exam - Vital Signs Vital Signs: Vital Signs x48h Temp Pulse Pulse Resp BP BP Pulse Ox 10/03/20 21:59 38.5 C H 95 20 150/76 H 99 10/03/20 21:22 90 143/78 H 99 10/03/20 20:51 36.9 C 86 145/69 H 96 10/03/20 20:30 88 16 141/66 H 96 10/03/20 20:26 85 14 137/67 H 96 10/03/20 20:01 86 20 94 10/03/20 19:30 84 21 133/67 H 94 10/03/20 19:00 84 143/70 H 95 10/03/20 18:57 38.9 C H 88 30 H 122/85 H 96 - Physical Exam General Appearance: positive: Mild distress (From bladder fullness), Other (Disoriented to place and time.) Eyes Bilateral: positive: Normal inspection ENT: positive: ENT inspection nml, No signs of dehydration Neck: positive: No JVD Respiratory: positive: Breath sounds nml Cardiovascular: positive: Regular rate & rhythm, No murmur Abdomen: positive: Other (Distended, normal bowel sounds, no guarding or rebaound) Skin: positive: Warm, Dry Extremities: positive: Other (R BKA, L leg venous stasis changes.) Neurologic/Psychiatric: positive: Disoriented to place, Disoriented to time Sepsis Event Note (H) - Evaluation Current Stage of Sepsis: Sepsis Possible source of Sepsis: positive: Unknown - Sepsis Criteria Sepsis Criteria: Recorded Temperature greater than 38.3C or Less than 36C, Recorded Respiratory Rate greater than 20, [employer]: altered consciousness (unrelated to primary neuro pathology), Metabolic: lactate > 2 mmol/L Conclusion/Plan - Problem List (1) Sepsis Conclusion/Plan: It is unclear if a pneumonia is the source but I suspect more likely the urine is the source because of repeat urinary retention and recent multiple manipulations with his bladder that even caused hematuria. He received and we sill continue broad-spectrum antibiotics using Vanco, cefepime and Flagyl. Blood cultures were done, await those results. Mahan catheter will be inserted to obtain urinalysis and then urine culture. Qualifiers: Sepsis type: sepsis due to unspecified organism Sepsis acute organ dysfunction status: with acute organ dysfunction Severe sepsis acute organ dysfunction type: encephalopathy (2) Urinary retention with incomplete bladder emptying Conclusion/Plan: Patient required To straight catheterization then finally Mahan insertion on the last recent admission. He then refused to go home with a Mahan, he was started on Flomax and the Mahan was taken out on the morning of discharge and he was able to urinate adequately. There was significant hematuria during the last few days of that hospital stay. Because of this frequent manipulations and current urinary retention of 800 cc plus, his urinary tract may be the source of this infection. Will insert a Mahan catheter now. Await urinalysis. Continue with broad empiric IV antibiotics (3) Metabolic encephalopathy Conclusion/Plan: Because of the increased lactic acid level and creatinine, will give gentle hydration, will start empiric antibiotics. Monitor for neurologic improvement which is already noticeable (he is more vocal and is making sense) (4) HCAP (healthcare-associated pneumonia) Conclusion/Plan: The chest x-ray was read as atypical pneumonia versus pulmonary edema. Because we cannot tell if the source of his sepsis is pulmonary versus urinary, he will be handled as if he has HCAP until proven otherwise. He does complain of a cough but he is not desaturating. He did receive a lot of fluids during the last recent hospitalization therefore CHF may be very likely and not a diffuse pneumonia because he is not desaturating Order sputum for culture. Continue with empiric IV antibiotics. (5) Acute kidney injury superimposed on chronic kidney disease Conclusion/Plan: Creatinine is increased at 1.8. We will give gentle IV hydration. Avoid nephrotoxins. Follow BMP daily (6) Insulin dependent diabetes mellitus Conclusion/Plan: At the last [facility] admission, he reported he never checks his blood sugar and does not eat a diabetic diet, but takes Insulin Lantus 110 units twice daily. His A1c returned at 10.4. We started a much lower Lantus dose of 5 units b.i.d., at that admission, but needed to go up as high as 70 units twice daily. At discharge he was advised to start doing blood glucose checks. Will currently order 7 units of Lantus twice daily plus sliding scale insulin plus a diabetic diet. Check A1c with a.m. lab (7) Hyponatremia Conclusion/Plan: He ran chronic hyponatremia. Currently this could be pseudohyponatremia from an elevated glucose. Will give gentle IV saline hydration during sepsis. Follow BMP daily. (8) Hyperkalemia Conclusion/Plan: Hyperkalemic, this should improve with insulin administration. Will not give potassium replacements. Avoid nephrotoxins. Follow BMP daily (9) Anemia Conclusion/Plan: On the last recent hospitalization, his guaiac stool was positive. Will follow CBC daily, transfuse if hemoglobin goes under 7. Will consider general surgery consult for EGD and colonoscopy while here, after his sepsis is managed. (10) Thrombocytopenia Conclusion/Plan: There is chronic thrombocytopenia likely due to alcohol abuse. Follow CBC daily. (11) Hx of coronary artery disease Conclusion/Plan: Will continue his usual anginal medications. Hold the aspirin daily dose because of the recent guaiac positive stool (12) PVD (peripheral vascular disease) Conclusion/Plan: As per Hx (13) Hx of right BKA Conclusion/Plan: As per Hx. - Lab Results Fish Bones: 10/03/20 19:47 10/03/20 19:47
[2020-10-03 22:27] LABS: B. PARAPERTUSSIS- RESP PCR PAN NOT DETECTED; B. PERTUSSIS- RESP PCR PANEL NOT DETECTED; C. PNEUMONIAE- RESP PCR PANEL NOT DETECTED; CORONAVIRUS 229E-RESP PCR NOT DETECTED; CORONAVIRUS HKU1-RESP PCR NOT DETECTED; CORONAVIRUS NL63-RESP PCR NOT DETECTED; CORONAVIRUS OC43-RESP PCR NOT DETECTED; HUMAN METAPNEUMOVIRUS NOT DETECTED; INFLUENZA A- RESP PCR PANEL NOT DETECTED; INFLUENZA B - RESP PCR PANEL NOT DETECTED; M. PNEUMONIAE- RESP PCR PANEL NOT DETECTED; PARAINFLUENZA VIRUS 1 NOT DETECTED; PARAINFLUENZA VIRUS 2 NOT DETECTED; PARAINFLUENZA VIRUS 3 NOT DETECTED; PARAINFLUENZA VIRUS 4 NOT DETECTED; RHINOVIRUS/ENTEROVIRUS NOT DETECTED; RSV- RESP PCR PANEL NOT DETECTED; SARS-CoV-2 -RESP PCR PANEL NOT DETECTED
[2020-10-03 22:50] LABS: INR 1.3 (0.8-1.2); PT - PROTHROMBIN TIME 14.2 secs (9.9-12.6)
[2020-10-03] MEDS ORDERED: LIDOCAINE 2% URO-JET 5 ML SYRINGE UR ONE (22:50)
[2020-10-03] MEDS ORDERED: DEXTROSE 5%-0.9% NACL 1,000 ML IV SCH (23:00)
[2020-10-03 23:23] LABS: MUDS CUTOFF CONCENTRATIONS CUTOFF CONC BELOW:
[2020-10-03 23:33] LABS: BILIRUBIN,URINE NEGATIVE (NEGATIVE); GLUCOSE, URINE (UA) 500 mg/dL (NEGATIVE); KETONES,URINE (UA) NEGATIVE (NEGATIVE); LEUKOCYTE ESTERASE, URINE NEGATIVE (NEGATIVE); NITRITE,URINE NEGATIVE (NEGATIVE); OCCULT BLOOD,URINE SMALL (NEGATIVE); PH,URINE 5.5 PH (5.0-7.5); PROTEIN,URINE TRACE mg/dL (NEGATIVE); UROBILINOGEN,URINE 0.2 (NORMAL) E.U./dL (NORMAL)
[2020-10-03 23:41] LABS: BACTERIA,URINE Moderate /HPF (None Seen); CLARITY,URINE SL. CLOUDY (CLEAR); SQUAMOUS EPITHELIAL CELL,UR RARE Squamous (<= Few)
[2020-10-03 23:43] LABS: AMPHETAMINE SCREEN,URINE NEGATIVE (NEGATIVE); BARBITURATE SCREEN,UR NEGATIVE (NEGATIVE); BENZODIAZEPINES SCREEN, URINE NEGATIVE (NEGATIVE); COCAINE SCREEN URINE NEGATIVE (NEGATIVE); METHADONE SCREEN, URINE NEGATIVE (NEGATIVE); METHAMPHETAMINES SCREEN, URINE NEGATIVE (NEGATIVE); OPIATE SCREEN, URINE POSITIVE (NEGATIVE); OXYCODONE SCREEN, URINE NEGATIVE (NEGATIVE); PROPOXYPHENE SCREEN, URINE NEGATIVE (NEGATIVE); THC CANNABINOID SCREEN, URINE NEGATIVE (NEGATIVE); TRICYCLIC ANTIDEPRESSANT,URINE NEGATIVE (NEGATIVE)
[2020-10-04] MEDS: INSULIN REGULAR HUMAN 300 UNIT/3 ML VIAL SUBQ SCH ×2 (00:23→06:38)
[2020-10-04] MEDS: ACETAMINOPHEN 325 MG TABLET PO PRN ×3 (00:23→16:28)
[2020-10-04] MEDS: GABAPENTIN 300 MG CAPSULE PO SCH ×4 (00:28→20:16)
[2020-10-04] MEDS: SODIUM CHLORIDE FLUSH 0.9% 10 ML SYRINGE IVP SCH ×3 (00:28→16:30)
[2020-10-04] MEDS: DEXTROSE 5%-0.9% NACL 1,000 ML IV SCH ×2 (00:30→18:47)
[2020-10-04] MEDS ORDERED: GABAPENTIN 300 MG CAPSULE PO SCH ×2 (01:00→09:00)
[2020-10-04] MEDS ORDERED: metroNIDAZOLE 500 MG/100 ML 500 MG/100 ML BAG IV SCH (04:00)
[2020-10-04] MEDS ORDERED: GABAPENTIN 400 MG CAPSULE PO SCH ×2 (06:00→21:00)
[2020-10-04 06:07] LABS: BASOPHILS % (AUTO) 0.7 %; EOSINOPHILS % (AUTO) 0.1 %; HCT - HEMATOCRIT 30.1 % (42.0-52.0); HGB - HEMOGLOBIN 9.7 g/dL (14.0-18.0); MEAN CORPUSCULAR HEMOGLOBIN 31.8 pg (27.0-31.0); MEAN CORPUSCULAR HGB CONC 32.2 g/dL (32.0-36.0); MEAN CORPUSCULAR VOLUME 98.7 fL (80.0-94.0); MEAN PLATELET VOLUME 8.5 fL (7.4-11.4); MONOCYTES % (AUTO) 11.7 %; NEUTROPHILS % (AUTO) 76.9 %; PLT - PLATELET COUNT 90 10^3/uL (130-450); RED BLOOD COUNT 3.05 10^6/uL (4.70-6.10); RED CELL DISTRIBUTION WIDTH 13.4 % (12.0-15.0); WHITE BLOOD COUNT 6.7 x10^3/uL (4.8-10.8)
[2020-10-04 06:15] LABS: CALCIUM 8.6 mg/dL (8.5-10.3); CREATININE 1.7 mg/dL (0.6-1.2); POTASSIUM 4.7 mmol/L (3.5-5.0)
[2020-10-04 06:35] LABS: ABNORMAL LYMPHS % (MANUAL) 0 %
[2020-10-04 07:12] LABS: BAND NEUTROPHILS % (MANUAL) 3 %; BASOPHILS # (MANUAL) 0.1 10^3/uL (0-0.1); BASOPHILS % (MANUAL) 1 %; DIFFERENTIAL COMMENT MANUAL DIFFERENTIAL; EOSINOPHILS # (MANUAL) 0.1 10^3/uL (0-0.7); LYMPHOCYTES # (MANUAL) 0.6 10^3/uL (1.5-3.5); LYMPHOCYTES % (MANUAL) 9 %; MONOCYTES # (MANUAL) 0.6 10^3/uL (0.0-1.0); NEUTROPHILS # (MANUAL) 5.4 10^3/uL (1.5-6.6); PLATELET ESTIMATE, MANUAL DECREASED (<130,000) (NORMAL); PLATELET MORPHOLOGY NORMAL APPEARANCE (NORMAL); RBC MORPHOLOGY (MULTIPLE) NORMAL APPEARANCE (NORMAL); WBC MORPHOLOGY (MULTIPLE) NORMAL APPEARANCE (NORMAL)
--- NOTE | 2020-10-04 07:32 | PROVIDER PROGRESS NOTE ---
Subjective - Prog Note Date Prog Note Date: 10/04/20 - Subjective Subjective: He complains of lower abdominal pain that radiates to his flanks. No nausea or vomiting. He denies any chest pain or shortness of breath. Feels improved compared to yesterday. Current Medications - Current Medications Current Medications: Active Medications Acetaminophen (Acetaminophen 325 Mg Tablet) 650 mg PO Q4HR PRN PRN Reason: Pain or Fever > 38C (100.4F) Last Admin: 10/04/20 16:28 Dose: 650 mg Documented by: Atorvastatin Calcium (Atorvastatin 10 Mg Tablet) 40 mg PO QPM [facility] Carvedilol (Carvedilol 12.5 Mg Tablet) 25 mg PO BID [facility] Last Admin: 10/04/20 08:47 Dose: 25 mg Documented by: Docusate Sodium (Docusate Sodium 250 Mg Capsule) 250 - 500 mg PO DAILY [facility] Last Admin: 10/04/20 16:24 Dose: 250 mg Documented by: Gabapentin (Gabapentin 300 Mg Capsule) 600 mg PO HS [facility] Last Admin: 10/04/20 00:28 Dose: 600 mg Documented by: Gabapentin (Gabapentin 300 Mg Capsule) 300 mg PO 0800,1500 [facility] Last Admin: 10/04/20 14:20 Dose: 300 mg Documented by: Cefepime HCl 2 gm/ Sodium (Chloride) 100 mls @ 200 mls/hr IV Q24H [facility] Dextrose/Sodium Chloride (D5ns) 1,000 mls @ 50 mls/hr IV .Q20H [facility] Last Admin: 10/04/20 00:30 Dose: 50 mls/hr Documented by: Azithromycin 500 mg/ Sodium (Chloride) 250 mls @ 250 mls/hr IV DAILY [facility] Stop: 10/06/20 09:59 Last Infusion: 10/04/20 10:15 Dose: Infused Documented by: Vancomycin HCl 2 gm/ Sodium (Chloride) 500 mls @ 250 mls/hr IV Q24H [facility] Insulin Aspart (Insulin Aspart 300 Unit/3 Ml Pen) 1 - 9 unit SUBQ 0800,1200,1700,2100 [facility]; Protocol Last Admin: 10/04/20 17:09 Dose: 7 unit Documented by: Insulin Glargine (Insulin Glargine 300 Unit/3 Ml Pen) 50 unit SUBQ BID [facility] Last Admin: 10/04/20 09:03 Dose: 50 unit Documented by: Multi-Ingredient Ointment (Zinc Oxide 20% Oint 30 Gm Tube) 1 applic TOP PRN PRN PRN Reason: Skin Care Last Admin: 10/04/20 14:21 Dose: 1 applic Documented by: Ondansetron HCl (Ondansetron 4 Mg/2 Ml Vial) 4 mg IVP Q6HR PRN PRN Reason: Nausea / Vomiting Polyethylene Glycol (Polyethylene Glycol 3350 17 Gm Packet) 17 gm PO DAILY [facility] Last Admin: 10/04/20 16:24 Dose: 17 gm Documented by: Sodium Chloride (Sodium Chloride Flush 0.9% 10 Ml Syringe) 10 ml IVP PRN PRN PRN Reason: NEEDED PER PROVIDER ORDERS Sodium Chloride (Sodium Chloride Flush 0.9% 10 Ml Syringe) 10 ml IVP 0100,0900 ,1700 [facility] Last Admin: 10/04/20 16:30 Dose: 10 ml Documented by: Tamsulosin HCl (Tamsulosin 0.4 Mg Capsule) 0.4 mg PO DAILY [facility] Last Admin: 10/04/20 08:46 Dose: 0.4 mg Documented by: Loratadine 10 mg PO DAILY 11/07/12 Furosemide 40 mg PO BID 12/30/17 Gabapentin [Neurontin] 300 mg PO TID 06/01/18 Losartan [Cozaar] 50 mg PO DAILY 06/01/18 Insulin Glargine [Lantus Solostar] 110 unit SUBQ BID 10/02/20 Objective - Vital Signs/Intake & Output Reviewed Vital Signs: Yes Vital Signs: Vital Signs x48h Temp Pulse Resp BP Pulse Ox 10/04/20 05:00 37.3 C 87 22 149/88 H 95 10/03/20 23:42 37.9 C 97 22 146/77 H 97 Intake & Output: Intake & Output 10/01/20 10/02/20 10/03/20 10/04/20 23:59 23:59 23:59 23:59 Intake Total 1700 100 Output Total 1800 400 Balance -100 -300 - Objective General Appearance: positive: No acute distress, Alert Eyes Bilateral: positive: Normal inspection, Conjunctivae nml ENT: positive: ENT inspection nml Neck: positive: Nml inspection Respiratory: positive: No respiratory distress, Rales. negative: Wheezes Cardiovascular: positive: Regular rate & rhythm, No murmur. negative: Tachycardia Abdomen: positive: No distention, Tenderness (Suprapubic tenderness.). negative: Guarding, Rebound Back: positive: Other (No lumbar spine tenderness.). negative: CVA tenderness (R), CVA tenderness (L) Skin: positive: Warm, Dry Extremities: positive: No pedal edema, Other (Right BKA noted) Neurologic/Psychiatric: negative: Disoriented to person, Disoriented to place - Lab Results Fish Bones: 10/04/20 05:52 10/04/20 05:52 Other Labs: Lab Results x24hrs 10/04/20 10/04/20 10/04/20 Range/Units 05:52 05:52 00:30 WBC 6.7 (4.8-10.8) x10^3/uL RBC 3.05 L (4.70-6.10) 10^6/uL Hgb 9.7 L (14.0-18.0) g/dL Hct 30.1 L (42.0-52.0) % MCV 98.7 H (80.0-94.0) fL MCH 31.8 H (27.0-31.0) pg MCHC 32.2 (32.0-36.0) g/dL RDW 13.4 (12.0-15.0) % Plt Count 90 L (130-450) 10^3/uL MPV 8.5 (7.4-11.4) fL Neut # (Auto) Not Reportable (1.5-6.6) 10^3/uL Lymph # (Auto) Not Reportable (1.5-3.5) 10^3/uL Robeson # (Auto) Not Reportable (0.0-1.0) 10^3/uL Eos # (Auto) Not Reportable (0.0-0.7) 10^3/uL Baso # (Auto) Not Reportable (0.0-0.1) 10^3/uL Absolute Nucleated RBC Not Reportable x10^3/uL Total Counted 100 Band Neuts % (Manual) 3 (0 - 10) % Abnorm Lymph % (Manual) 0 % Nucleated RBC % Not Reportable /100WBC Neutrophils # (Manual) 5.4 (1.5-6.6) 10^3/uL Lymphocytes # (Manual) 0.6 L (1.5-3.5) 10^3/uL Monocytes # (Manual) 0.6 (0.0-1.0) 10^3/uL Eosinophils # (Manual) 0.1 (0-0.7) 10^3/uL Basophils # (Manual) 0.1 (0-0.1) 10^3/uL Differential Comment MANUAL DIFFERENTIAL WBC Morphology NORMAL APPEARANCE (NORMAL) Platelet Estimate DECREASED (<130,000) (NORMAL) Platelet Morphology NORMAL APPEARANCE (NORMAL) RBC Morph Micro Appear NORMAL APPEARANCE (NORMAL) PT (9.9-12.6) secs INR (0.8-1.2) Sodium 133 L (135-145) mmol/L Potassium 4.7 (3.5-5.0) mmol/L Chloride 105 (101-111) mmol/L Carbon Dioxide 21 (21-32) mmol/L Anion Gap 7.0 (6-13) BUN 24 H (6-20) mg/dL Creatinine 1.7 H (0.6-1.2) mg/dL Estimated GFR (MDRD) 39 L (>89) Glucose 163 H (70-100) mg/dL Lactic Acid (0.5-2.2) mmol/L Calcium 8.6 (8.5-10.3) mg/dL Total Bilirubin (0.2-1.0) mg/dL AST (10-42) IU/L ALT (10-60) IU/L Alkaline Phosphatase (42-121) IU/L B-Natriuretic Peptide 254 H (5-100) pg/mL Total Protein (6.7-8.2) g/dL Albumin (3.2-5.5) g/dL Globulin (2.1-4.2) g/dL Albumin/Globulin Ratio (1.0-2.2) Urine Color Urine Clarity (CLEAR) Urine pH (5.0-7.5) PH Ur Specific [place] (1.002-1.030) Urine Protein (NEGATIVE) mg/dL Urine Glucose (UA) (NEGATIVE) mg/dL Urine Ketones (NEGATIVE) mg/dL Urine Occult Blood (NEGATIVE) Urine Nitrite (NEGATIVE) Urine Bilirubin (NEGATIVE) Urine Urobilinogen (NORMAL) E.U./dL Ur Leukocyte Esterase (NEGATIVE) Urine RBC (0-5) /HPF Urine WBC (0-3) /HPF Ur Squamous Epith Cells (<= Few) Urine Bacteria (None Seen) /HPF Urine Culture Comments Nasal Adenovirus (PCR) Nasal B. parapertussis DNA (PCR) Nasal Coronavir 229E PCR Nasal Coronavir HKU1 PCR Nasal Coronavir NL63 PCR Nasal Coronavir OC43 PCR Nasal Enterovir/Rhinovir PCR Nasal Influenza B PCR Nasal Influenza A PCR Nasal Parainfluen 1 PCR Nasal Parainfluen 2 PCR Nasal Parainfluen 3 PCR Nasal Parainfluen 4 PCR Nasal RSV (PCR) Nasal B.pertussis DNA PCR Nasal C.pneumoniae (PCR) [place] Human Metapneumo PCR Nasal M.pneumoniae (PCR) Nasal SARS-CoV-2 (PCR) Urine Opiates Screen (NEGATIVE) Ur Oxycodone Screen (NEGATIVE) Urine Methadone Screen (NEGATIVE) Ur Propoxyphene Screen (NEGATIVE) Ur Barbiturates Screen (NEGATIVE) Ur Tricyclics Screen (NEGATIVE) Ur Phencyclidine Scrn (NEGATIVE) Ur Amphetamine Screen (NEGATIVE) U Methamphetamines Scrn (NEGATIVE) U Benzodiazepines Scrn (NEGATIVE) Urine Cocaine Screen (NEGATIVE) U Cannabinoids Screen (NEGATIVE) Ethyl Alcohol mg/dL 10/04/20 10/03/20 10/03/20 Range/Units 00:30 23:15 22:35 WBC (4.8-10.8) x10^3/uL RBC (4.70-6.10) 10^6/uL Hgb (14.0-18.0) g/dL Hct (42.0-52.0) % MCV (80.0-94.0) fL MCH (27.0-31.0) pg MCHC (32.0-36.0) g/dL RDW (12.0-15.0) % Plt Count (130-450) 10^3/uL MPV (7.4-11.4) fL Neut # (Auto) (1.5-6.6) 10^3/uL Lymph # (Auto) (1.5-3.5) 10^3/uL Robeson # (Auto) (0.0-1.0) 10^3/uL Eos # (Auto) (0.0-0.7) 10^3/uL Baso # (Auto) (0.0-0.1) 10^3/uL Absolute Nucleated RBC x10^3/uL Total Counted Band Neuts % (Manual) (0 - 10) % Abnorm Lymph % (Manual) % Nucleated RBC % /100WBC Neutrophils # (Manual) (1.5-6.6) 10^3/uL Lymphocytes # (Manual) (1.5-3.5) 10^3/uL Monocytes # (Manual) (0.0-1.0) 10^3/uL Eosinophils # (Manual) (0-0.7) 10^3/uL Basophils # (Manual) (0-0.1) 10^3/uL Differential Comment WBC Morphology (NORMAL) Platelet Estimate (NORMAL) Platelet Morphology (NORMAL) RBC Morph Micro Appear (NORMAL) PT 14.2 H (9.9-12.6) secs INR 1.3 H (0.8-1.2) Sodium (135-145) mmol/L Potassium (3.5-5.0) mmol/L Chloride (101-111) mmol/L Carbon Dioxide (21-32) mmol/L Anion Gap (6-13) BUN (6-20) mg/dL Creatinine (0.6-1.2) mg/dL Estimated GFR (MDRD) (>89) Glucose (70-100) mg/dL Lactic Acid 1.6 (0.5-2.2) mmol/L Calcium (8.5-10.3) mg/dL Total Bilirubin (0.2-1.0) mg/dL AST (10-42) IU/L ALT (10-60) IU/L Alkaline Phosphatase (42-121) IU/L B-Natriuretic Peptide (5-100) pg/mL Total Protein (6.7-8.2) g/dL Albumin (3.2-5.5) g/dL Globulin (2.1-4.2) g/dL Albumin/Globulin Ratio (1.0-2.2) Urine Color YELLOW Urine Clarity SL. CLOUDY (CLEAR) Urine pH 5.5 (5.0-7.5) PH Ur Specific [place] 1.015 (1.002-1.030) Urine Protein TRACE (NEGATIVE) mg/dL Urine Glucose (UA) 500 H (NEGATIVE) mg/dL Urine Ketones NEGATIVE (NEGATIVE) mg/dL Urine Occult Blood SMALL H (NEGATIVE) Urine Nitrite NEGATIVE (NEGATIVE) Urine Bilirubin NEGATIVE (NEGATIVE) Urine Urobilinogen 0.2 (NORMAL) (NORMAL) E.U./dL Ur Leukocyte Esterase NEGATIVE (NEGATIVE) Urine RBC 6-10 H (0-5) /HPF Urine WBC 6-10 H (0-3) /HPF Ur Squamous Epith Cells RARE Squamous (<= Few) Urine Bacteria Moderate H (None Seen) /HPF Urine Culture Comments NOT INDICATED Nasal Adenovirus (PCR) Nasal B. parapertussis DNA (PCR) Nasal Coronavir 229E PCR Nasal Coronavir HKU1 PCR Nasal Coronavir NL63 PCR Nasal Coronavir OC43 PCR Nasal Enterovir/Rhinovir PCR Nasal Influenza B PCR Nasal Influenza A PCR Nasal Parainfluen 1 PCR Nasal Parainfluen 2 PCR Nasal Parainfluen 3 PCR Nasal Parainfluen 4 PCR Nasal RSV (PCR) Nasal B.pertussis DNA PCR Nasal C.pneumoniae (PCR) [place] Human Metapneumo PCR Nasal M.pneumoniae (PCR) Nasal SARS-CoV-2 (PCR) Urine Opiates Screen POSITIVE H (NEGATIVE) Ur Oxycodone Screen NEGATIVE (NEGATIVE) Urine Methadone Screen NEGATIVE (NEGATIVE) Ur Propoxyphene Screen NEGATIVE (NEGATIVE) Ur Barbiturates Screen NEGATIVE (NEGATIVE) Ur Tricyclics Screen NEGATIVE (NEGATIVE) Ur Phencyclidine Scrn NEGATIVE (NEGATIVE) Ur Amphetamine Screen NEGATIVE (NEGATIVE) U Methamphetamines Scrn NEGATIVE (NEGATIVE) U Benzodiazepines Scrn NEGATIVE (NEGATIVE) Urine Cocaine Screen NEGATIVE (NEGATIVE) U Cannabinoids Screen NEGATIVE (NEGATIVE) Ethyl Alcohol mg/dL 10/03/20 10/03/20 10/03/20 Range/Units 22:35 21:26 19:47 WBC (4.8-10.8) x10^3/uL RBC (4.70-6.10) 10^6/uL Hgb (14.0-18.0) g/dL Hct (42.0-52.0) % MCV (80.0-94.0) fL MCH (27.0-31.0) pg MCHC (32.0-36.0) g/dL RDW (12.0-15.0) % Plt Count (130-450) 10^3/uL MPV (7.4-11.4) fL Neut # (Auto) (1.5-6.6) 10^3/uL Lymph # (Auto) (1.5-3.5) 10^3/uL Robeson # (Auto) (0.0-1.0) 10^3/uL Eos # (Auto) (0.0-0.7) 10^3/uL Baso # (Auto) (0.0-0.1) 10^3/uL Absolute Nucleated RBC x10^3/uL Total Counted Band Neuts % (Manual) (0 - 10) % Abnorm Lymph % (Manual) % Nucleated RBC % /100WBC Neutrophils # (Manual) (1.5-6.6) 10^3/uL Lymphocytes # (Manual) (1.5-3.5) 10^3/uL Monocytes # (Manual) (0.0-1.0) 10^3/uL Eosinophils # (Manual) (0-0.7) 10^3/uL Basophils # (Manual) (0-0.1) 10^3/uL Differential Comment WBC Morphology (NORMAL) Platelet Estimate (NORMAL) Platelet Morphology (NORMAL) RBC Morph Micro Appear (NORMAL) PT (9.9-12.6) secs INR (0.8-1.2) Sodium (135-145) mmol/L Potassium (3.5-5.0) mmol/L Chloride (101-111) mmol/L Carbon Dioxide (21-32) mmol/L Anion Gap (6-13) BUN (6-20) mg/dL Creatinine (0.6-1.2) mg/dL Estimated GFR (MDRD) (>89) Glucose (70-100) mg/dL Lactic Acid 1.5 2.3 H (0.5-2.2) mmol/L Calcium (8.5-10.3) mg/dL Total Bilirubin (0.2-1.0) mg/dL AST (10-42) IU/L ALT (10-60) IU/L Alkaline Phosphatase (42-121) IU/L B-Natriuretic Peptide (5-100) pg/mL Total Protein (6.7-8.2) g/dL Albumin (3.2-5.5) g/dL Globulin (2.1-4.2) g/dL Albumin/Globulin Ratio (1.0-2.2) Urine Color Urine Clarity (CLEAR) Urine pH (5.0-7.5) PH Ur Specific [place] (1.002-1.030) Urine Protein (NEGATIVE) mg/dL Urine Glucose (UA) (NEGATIVE) mg/dL Urine Ketones (NEGATIVE) mg/dL Urine Occult Blood (NEGATIVE) Urine Nitrite (NEGATIVE) Urine Bilirubin (NEGATIVE) Urine Urobilinogen (NORMAL) E.U./dL Ur Leukocyte Esterase (NEGATIVE) Urine RBC (0-5) /HPF Urine WBC (0-3) /HPF Ur Squamous Epith Cells (<= Few) Urine Bacteria (None Seen) /HPF Urine Culture Comments Nasal Adenovirus (PCR) NOT DETECTED Nasal B. parapertussis DNA (PCR) NOT DETECTED Nasal Coronavir 229E PCR NOT DETECTED Nasal Coronavir HKU1 PCR NOT DETECTED Nasal Coronavir NL63 PCR NOT DETECTED Nasal Coronavir OC43 PCR NOT DETECTED Nasal Enterovir/Rhinovir PCR NOT DETECTED Nasal Influenza B PCR NOT DETECTED Nasal Influenza A PCR NOT DETECTED Nasal Parainfluen 1 PCR NOT DETECTED Nasal Parainfluen 2 PCR NOT DETECTED Nasal Parainfluen 3 PCR NOT DETECTED Nasal Parainfluen 4 PCR NOT DETECTED Nasal RSV (PCR) NOT DETECTED Nasal B.pertussis DNA PCR NOT DETECTED Nasal C.pneumoniae (PCR) NOT DETECTED [place] Human Metapneumo PCR NOT DETECTED Nasal M.pneumoniae (PCR) NOT DETECTED Nasal SARS-CoV-2 (PCR) NOT DETECTED Urine Opiates Screen (NEGATIVE) Ur Oxycodone Screen (NEGATIVE) Urine Methadone Screen (NEGATIVE) Ur Propoxyphene Screen (NEGATIVE) Ur Barbiturates Screen (NEGATIVE) Ur Tricyclics Screen (NEGATIVE) Ur Phencyclidine Scrn (NEGATIVE) Ur Amphetamine Screen (NEGATIVE) U Methamphetamines Scrn (NEGATIVE) U Benzodiazepines Scrn (NEGATIVE) Urine Cocaine Screen (NEGATIVE) U Cannabinoids Screen (NEGATIVE) Ethyl Alcohol mg/dL 10/03/20 10/03/20 Range/Units 19:47 19:47 WBC 7.7 (4.8-10.8) x10^3/uL RBC 3.00 L (4.70-6.10) 10^6/uL Hgb 9.6 L (14.0-18.0) g/dL Hct 29.3 L (42.0-52.0) % MCV 97.7 H (80.0-94.0) fL MCH 32.0 H (27.0-31.0) pg MCHC 32.8 (32.0-36.0) g/dL RDW 13.5 (12.0-15.0) % Plt Count 100 L (130-450) 10^3/uL MPV 9.1 (7.4-11.4) fL Neut # (Auto) 6.6 (1.5-6.6) 10^3/uL Lymph # (Auto) 0.4 L (1.5-3.5) 10^3/uL [place] # (Auto) 0.6 (0.0-1.0) 10^3/uL Eos # (Auto) 0.0 (0.0-0.7) 10^3/uL Baso # (Auto) 0.0 (0.0-0.1) 10^3/uL Absolute Nucleated RBC 0.00 x10^3/uL Total Counted Band Neuts % (Manual) (0 - 10) % Abnorm Lymph % (Manual) % Nucleated RBC % 0.0 /100WBC Neutrophils # (Manual) (1.5-6.6) 10^3/uL Lymphocytes # (Manual) (1.5-3.5) 10^3/uL Monocytes # (Manual) (0.0-1.0) 10^3/uL Eosinophils # (Manual) (0-0.7) 10^3/uL Basophils # (Manual) (0-0.1) 10^3/uL Differential Comment WBC Morphology (NORMAL) Platelet Estimate (NORMAL) Platelet Morphology (NORMAL) RBC Morph Micro Appear (NORMAL) PT (9.9-12.6) secs INR (0.8-1.2) Sodium 132 L (135-145) mmol/L Potassium 5.8 H (3.5-5.0) mmol/L Chloride 103 (101-111) mmol/L Carbon Dioxide 22 (21-32) mmol/L Anion Gap 7.0 (6-13) BUN 25 H (6-20) mg/dL Creatinine 1.8 H (0.6-1.2) mg/dL Estimated GFR (MDRD) 37 L (>89) Glucose 264 H (70-100) mg/dL Lactic Acid (0.5-2.2) mmol/L Calcium 9.0 (8.5-10.3) mg/dL Total Bilirubin 1.0 (0.2-1.0) mg/dL AST 45 H (10-42) IU/L ALT 36 (10-60) IU/L Alkaline Phosphatase 104 (42-121) IU/L B-Natriuretic Peptide (5-100) pg/mL Total Protein 7.7 (6.7-8.2) g/dL Albumin 3.2 (3.2-5.5) g/dL Globulin 4.5 H (2.1-4.2) g/dL Albumin/Globulin Ratio 0.7 L (1.0-2.2) Urine Color Urine Clarity (CLEAR) Urine pH (5.0-7.5) PH Ur Specific [place] (1.002-1.030) Urine Protein (NEGATIVE) mg/dL Urine Glucose (UA) (NEGATIVE) mg/dL Urine Ketones (NEGATIVE) mg/dL Urine Occult Blood (NEGATIVE) Urine Nitrite (NEGATIVE) Urine Bilirubin (NEGATIVE) Urine Urobilinogen (NORMAL) E.U./dL Ur Leukocyte Esterase (NEGATIVE) Urine RBC (0-5) /HPF Urine WBC (0-3) /HPF Ur Squamous Epith Cells (<= Few) Urine Bacteria (None Seen) /HPF Urine Culture Comments Nasal Adenovirus (PCR) Nasal B. parapertussis DNA (PCR) Nasal Coronavir 229E PCR Nasal Coronavir HKU1 PCR Nasal Coronavir NL63 PCR Nasal Coronavir OC43 PCR Nasal Enterovir/Rhinovir PCR Nasal Influenza B PCR Nasal Influenza A PCR Nasal Parainfluen 1 PCR Nasal Parainfluen 2 PCR Nasal Parainfluen 3 PCR Nasal Parainfluen 4 PCR Nasal RSV (PCR) Nasal B.pertussis DNA PCR Nasal C.pneumoniae (PCR) [place] Human Metapneumo PCR Nasal M.pneumoniae (PCR) Nasal SARS-CoV-2 (PCR) Urine Opiates Screen (NEGATIVE) Ur Oxycodone Screen (NEGATIVE) Urine Methadone Screen (NEGATIVE) Ur Propoxyphene Screen (NEGATIVE) Ur Barbiturates Screen (NEGATIVE) Ur Tricyclics Screen (NEGATIVE) Ur Phencyclidine Scrn (NEGATIVE) Ur Amphetamine Screen (NEGATIVE) U Methamphetamines Scrn (NEGATIVE) U Benzodiazepines Scrn (NEGATIVE) Urine Cocaine Screen (NEGATIVE) U Cannabinoids Screen (NEGATIVE) Ethyl Alcohol < 5.0 mg/dL ABX Reporting Has patient been on IV antibiotics over the past 48 hours?: Yes Sepsis Event Note (H) - Evaluation Current Stage of Sepsis: Sepsis Possible source of Sepsis: positive: Unknown - Sepsis Criteria Sepsis Criteria: Recorded Temperature greater than 38.3C or Less than 36C, Recorded Respiratory Rate greater than 20, [employer]: altered consciousness (unrelated to primary neuro pathology), Metabolic: lactate > 2 mmol/L Assessment/Plan - Problem List (1) Sepsis Impression: This appears to be secondary to HCAP or urinary tract infection. He presented with fevers and elevated lactic acid. His blood cultures are growing gram- positive cocci and PCR is suggestive of Enterococcus faecalis. His chest x-ray is suggestive of pneumonia and his urinalysis revealed bacteriuria and pyuria. We we will keep him on vancomycin and cefepime for the HCAP and suspected urinary tract infection. We have started him on azithromycin but we have since discontinued this given his blood cultures are growing Enterococcus. He will need repeat blood cultures and an echocardiogram. Qualifiers: Sepsis type: sepsis due to unspecified organism Sepsis acute organ dysfunction status: with acute organ dysfunction Severe sepsis acute organ dysfunction type: encephalopathy (2) HCAP (healthcare-associated pneumonia) Impression: This appears to the source of his sepsis. His chest x-ray is consistent with pneumonia. Fortunately he is not hypoxic and is not dyspneic. He remains on vancomycin and cefepime with today being day 2. (3) Gram-positive bacteremia Impression: His blood cultures are growing gram-positive cocci and PCR suggestive of Enterococcus faecalis. He did have a Mahan catheter placed during prior admission which was removed before discharge. His urinalysis also reveals pyuria and bacteriuria. I have ordered for a urine culture to be obtained. We will continue him on vancomycin and cefepime for time being until we have urine culture back. Given his abdominal pain, I have ordered a CT of the abdomen pelvis. (4) UTI (urinary tract infection) Impression: Concerns for urinary tract infection given his blood culture grew Enterococcus faecalis and his urinalysis reveals pyuria and bacteriuria. He remains on vancomycin and cefepime. I have ordered a CT today to evaluate for potential obstruction. (5) Acute kidney injury superimposed on chronic kidney disease Impression: This is likely prerenal injury as well as potentially component of obstructive uropathy given his urinary retention. His creatinine is slightly improved today to 1.7. His baseline is around 1.2. We will continue with IV hydration. Avoid nephrotoxins and monitor renal function/urine output. (6) Urinary retention with incomplete bladder emptying Impression: A Mahan catheter has been placed once again. He will need this on discharge. Continue Flomax. (7) Hx of coronary artery disease Impression: Stable. We will continue his home medications including Lipitor, aspirin, carvedilol. (8) Insulin dependent diabetes mellitus Impression: His blood glucose is poorly controlled today likely due to the decreased dose of Lantus he is receiving. We will resume his home dose of Lantus this evening and continue sliding scale as well as carb controlled diet.
[2020-10-04] MEDS: TAMSULOSIN 0.4 MG CAPSULE PO SCH (08:46)
[2020-10-04] MEDS: carvediloL 12.5 MG TABLET PO SCH ×2 (08:47→20:16)
[2020-10-04] MEDS ORDERED: INSULIN GLARGINE 300 UNIT/3 ML PEN SUBQ SCH (09:00)
[2020-10-04] MEDS ORDERED: HEPARIN 5,000 UNIT/ML VIAL SUBQ SCH (09:00)
[2020-10-04] MEDS ORDERED: AZITHROMYCIN INJ 500 MG in SODIUM CHLORIDE 0.9% 250 ML IV SCH (09:00)
[2020-10-04] MEDS: INSULIN ASPART 300 UNIT/3 ML PEN SUBQ SCH ×3 (12:00→20:21)
[2020-10-04 13:06] LABS: ESTIMATED AVERAGE GLUCOSE 235 mg/dL (70-100); HEMOGLOBIN A1c% 9.8 % (4.27-6.07)
--- NOTE | 2020-10-04 13:59 | PHARMACY PROGRESS NOTE ---
- Best Possible Medication History Admit Date and Time: 10/03/202101 Processed by: Pharmacy Medication History completed: Yes Secondary Source(s): Previous admit records As the person ultimately responsible for medication therapy, providers are able to order a medication from an existing home medication list in [facility] via the "Reconcile Routine" prior to Confirmation of that medication by support worker. Such practice is discouraged except when the physician, in their clinical judgment, deems that a medical need exists for a medication without regard to previous use.
[2020-10-04] MEDS: ZINC OXIDE 20% OINT 30 GM TUBE TOP PRN (14:21)
[2020-10-04] MEDS: polyethylene glycoL 3350 17 GM PACKET PO SCH (16:24)
[2020-10-04] MEDS: DOCUSATE SODIUM 250 MG CAPSULE PO SCH (16:24)
[2020-10-04] MEDS: VANCOMYCIN INJ 2 GM in SODIUM CHLORIDE 0.9% 500 ML IV SCH (18:40)
[2020-10-04] MEDS: CEFEPIME 2 GM in SODIUM CHLORIDE 0.9% MINIBAG 100 ML IV SCH (20:05)
[2020-10-04] MEDS: LACTATED RINGERS 1,000 ML IV SCH (20:05)
[2020-10-04] MEDS: ATORVASTATIN 10 MG TABLET PO SCH (20:16)
[2020-10-04] MEDS: INSULIN GLARGINE 300 UNIT/3 ML PEN SUBQ SCH (20:17)
--- NOTE | 2020-10-04 20:37 | CT Report ---
PROCEDURE: Abdomen/Pelvis WO INDICATIONS: Sepsis. UTI. Abdominal pain. TECHNIQUE: Noncontrast 5 mm thick sections acquired from the diaphragms to the symphysis. 5 mm coronal and sagi ttal reformats were then performed. For radiation dose reduction, the following was used: automated exposure control, adjustment of mA and/or kV according to patient size. COMPARISON: 09/30/2020. FINDINGS: Image quality: Excellent. ABDOMEN: Lung bases: Mild bibasilar atelectasis. Heart size is normal. Atherosclerotic calcifications of the coronary arteries. Solid organs: Nodular liver contour as before. Gallbladder contains small gallstones. There is sugges tion of mild pericholecystic stranding. Pancreas is normal in contours. No significant peripancreatic inflammatory changes. No adrenal nodules. Atrophic right kidney compared to the left. This is stab le. Punctate bilateral nonobstructing nephroliths are again noted. These measure between 2-3 mm in si ze as before. Bilateral renal hypodensities likely representing cysts. These are better evaluated on contrasted CT from 09/30/2020. No significant perinephric stranding. No perinephric fluid collection se en. Visualized course of the bilateral ureters are unremarkable. Urinary bladder is decompressed by a Mahan catheter. However, there is still moderate circumferential urinary bladder wall thickening wit h perivesicular inflammatory stranding. Peritoneum and bowel: Unenhanced bowel loops demonstrate normal wall thickness and caliber. No free fluid or air. Mild colonic diverticulosis without evidence for acute diverticulitis. Nodes and vessels: No retroperitoneal or mesenteric adenopathy by size criteria. Aorta and inferior vena cava are normal in caliber. Atherosclerotic calcifications of the abdominal aorta without aneu rysmal dilatation. Miscellaneous: No ventral hernias. PELVIS: Genitourinary: Bladder wall thickness is normal. Miscellaneous: No pelvic adenopathy. Right greater than left fat-containing inguinal hernias. No ac bjorn inflammatory changes. Bones: No suspicious bony lesions. No acute vertebral body compression fractures. Multilevel lumbar spondylosis. IMPRESSION: 1. Urinary bladder decompressed by Mahan catheter. However, there is still moderate circumferential u rinary bladder wall thickening with a vesicular stranding compatible with reported history of urinary tract infection. No organized fluid collection seen. 2. Nonobstructing bilateral nephroliths. No perinephric stranding or periureteral stranding seen. No hydronephrosis. 3. Colonic diverticulosis without acute diverticulitis. 4. Atherosclerotic vascular disease. 5. Cholelithiasis with mild pericholecystic stranding. Consider further evaluation with right upper q uadrant ultrasound if there is concern for acute cholecystitis. 6. Lobulated hepatic contours which is again suggestive of hepatic cirrhosis. Other chronic findings as above. Reviewed by: Toribio Dey MD on 10/04/2020 8:36 PM PDT Approved by: Toribio Dey MD on 10/04/2020 8:36 PM PDT Station ID: [id number]
[2020-10-04] MEDS ORDERED: VANCOMYCIN INJ 1.5 GM in SODIUM CHLORIDE 0.9% 500 ML IV SCH (21:00)
[2020-10-05] MEDS: SODIUM CHLORIDE FLUSH 0.9% 10 ML SYRINGE IVP SCH ×3 (00:38→17:10)
[2020-10-05] MEDS: LACTATED RINGERS 1,000 ML IV SCH (04:41)
[2020-10-05 06:57] LABS: CALCIUM 8.8 mg/dL (8.5-10.3); CREATININE 1.4 mg/dL (0.6-1.2); POTASSIUM 4.6 mmol/L (3.5-5.0)
[2020-10-05 07:10] LABS: BASOPHILS # (AUTO) 0.1 10^3/uL (0.0-0.1); BASOPHILS % (AUTO) 0.8 %; EOSINOPHILS # (AUTO) 0.1 10^3/uL (0.0-0.7); EOSINOPHILS % (AUTO) 1.7 %; HCT - HEMATOCRIT 27.3 % (42.0-52.0); HGB - HEMOGLOBIN 8.9 g/dL (14.0-18.0); LYMPHOCYTES # (AUTO) 1.2 10^3/uL (1.5-3.5); LYMPHOCYTES % (AUTO) 20.8 %; MEAN CORPUSCULAR HEMOGLOBIN 31.8 pg (27.0-31.0); MEAN CORPUSCULAR HGB CONC 32.6 g/dL (32.0-36.0); MEAN CORPUSCULAR VOLUME 97.5 fL (80.0-94.0); MEAN PLATELET VOLUME 9.4 fL (7.4-11.4); MONOCYTES # (AUTO) 0.9 10^3/uL (0.0-1.0); MONOCYTES % (AUTO) 14.9 %; NEUTROPHILS # (AUTO) 3.6 10^3/uL (1.5-6.6); NEUTROPHILS % (AUTO) 60.8 %; PLT - PLATELET COUNT 91 10^3/uL (130-450); RED CELL DISTRIBUTION WIDTH 13.4 % (12.0-15.0); WHITE BLOOD COUNT 5.9 x10^3/uL (4.8-10.8)
--- NOTE | 2020-10-05 07:44 | PROVIDER PROGRESS NOTE ---
Subjective - Prog Note Date Prog Note Date: 10/05/20 - Subjective Subjective: He denies feeling short of breath today. Still has an occasional cough. Still complains of suprapubic pain but feel that this is improved. Current Medications - Current Medications Current Medications: Active Medications Acetaminophen (Acetaminophen 325 Mg Tablet) 650 mg PO Q4HR PRN PRN Reason: Pain or Fever > 38C (100.4F) Last Admin: 10/04/20 16:28 Dose: 650 mg Documented by: Atorvastatin Calcium (Atorvastatin 10 Mg Tablet) 40 mg PO QPM [facility] Last Admin: 10/04/20 20:16 Dose: 40 mg Documented by: Carvedilol (Carvedilol 12.5 Mg Tablet) 25 mg PO BID [facility] Last Admin: 10/05/20 09:22 Dose: 25 mg Documented by: Docusate Sodium (Docusate Sodium 250 Mg Capsule) 250 - 500 mg PO DAILY [facility] Last Admin: 10/05/20 09:20 Dose: 250 mg Documented by: Duloxetine HCl (Duloxetine 30 Mg Capsule) 60 mg PO [facility] Gabapentin (Gabapentin 300 Mg Capsule) 600 mg PO HS [facility] Last Admin: 10/04/20 20:16 Dose: 600 mg Documented by: Gabapentin (Gabapentin 300 Mg Capsule) 300 mg PO 0800,1500 [facility] Last Admin: 10/05/20 14:52 Dose: 300 mg Documented by: Cefepime HCl 2 gm/ Sodium (Chloride) 100 mls @ 200 mls/hr IV Q24H [facility] Last Infusion: 10/04/20 20:35 Dose: Infused Documented by: Vancomycin HCl 2 gm/ Sodium (Chloride) 500 mls @ 250 mls/hr IV Q24H [facility] Last Infusion: 10/04/20 20:47 Dose: Infused Documented by: Insulin Aspart (Insulin Aspart 300 Unit/3 Ml Pen) 1 - 9 unit SUBQ 0800,1200,170 0,2100 [facility]; Protocol Last Admin: 10/05/20 17:10 Dose: Not Given Documented by: Insulin Glargine (Insulin Glargine 300 Unit/3 Ml Pen) 110 unit SUBQ BID [facility] Last Admin: 10/05/20 09:25 Dose: 110 unit Documented by: Multi-Ingredient Ointment (Zinc Oxide 20% Oint 30 Gm Tube) 1 applic TOP PRN PRN PRN Reason: Skin Care Last Admin: 10/04/20 14:21 Dose: 1 applic Documented by: Ondansetron HCl (Ondansetron 4 Mg/2 Ml Vial) 4 mg IVP Q6HR PRN PRN Reason: Nausea / Vomiting Oxycodone HCl (Oxycodone 5 Mg Tablet) 5 mg PO Q4HR PRN PRN Reason: PAIN Polyethylene Glycol (Polyethylene Glycol 3350 17 Gm Packet) 17 gm PO DAILY [facility] Last Admin: 10/05/20 09:21 Dose: 17 gm Documented by: Sodium Chloride (Sodium Chloride Flush 0.9% 10 Ml Syringe) 10 ml IVP PRN PRN PRN Reason: NEEDED PER PROVIDER ORDERS Sodium Chloride (Sodium Chloride Flush 0.9% 10 Ml Syringe) 10 ml IVP 0100,0900,1700 [facility] Last Admin: 10/05/20 17:10 Dose: 10 ml Documented by: Tamsulosin HCl (Tamsulosin 0.4 Mg Capsule) 0.4 mg PO DAILY [facility] Last Admin: 10/05/20 09:20 Dose: 0.4 mg Documented by: Loratadine 10 mg PO DAILY 11/07/12 Furosemide 40 mg PO BID 12/30/17 Gabapentin [Neurontin] 300 mg PO TID 06/01/18 Losartan [Cozaar] 50 mg PO DAILY 06/01/18 Insulin Glargine [Lantus Solostar] 110 unit SUBQ BID 10/02/20 Ascorbic Acid [Vitamin C] 500 mg PO DAILY 10/05/20 Duloxetine HCl [Cymbalta] 60 mg PO 10/05/20 Multivitamin 1 tab PO 10/05/20 Objective - Vital Signs/Intake & Output Reviewed Vital Signs: Yes Vital Signs: Vital Signs x48h Temp Pulse Resp BP Pulse Ox 10/05/20 04:42 37.5 C 77 20 126/74 100 10/05/20 00:51 37.6 C 76 22 128/61 97 Intake & Output: Intake & Output 10/02/20 10/03/20 10/04/20 10/05/20 23:59 23:59 23:59 23:59 Intake Total 1700 4060.33 1000 Output Total 1800 1475 950 Balance -100 2585.33 50 - Objective General Appearance: positive: No acute distress, Alert Eyes Bilateral: positive: Conjunctivae nml ENT: positive: ENT inspection nml Neck: positive: Nml inspection Respiratory: positive: No respiratory distress. negative: Wheezes, Rales Cardiovascular: negative: Irregularly irregular, Tachycardia, Systolic murmur Abdomen: positive: Nml bowel sounds, Tenderness (Suprapubic and left lower quadrant tenderness.). negative: Guarding, Rebound Skin: positive: Warm, Dry Extremities: positive: No pedal edema, Other (Right BKA.) Neurologic/Psychiatric: negative: Disoriented to person, Disoriented to place - Lab Results Fish Bones: 10/05/20 06:30 10/05/20 06:30 Other Labs: Lab Results x24hrs 10/05/20 10/05/20 10/04/20 Range/Units 06:30 06:30 05:52 WBC 5.9 (4.8-10.8) x10^3/uL RBC 2.80 L (4.70-6.10) 10^6/uL Hgb 8.9 L (14.0-18.0) g/dL Hct 27.3 L (42.0-52.0) % MCV 97.5 H (80.0-94.0) fL MCH 31.8 H (27.0-31.0) pg MCHC 32.6 (32.0-36.0) g/dL RDW 13.4 (12.0-15.0) % Plt Count 91 L (130-450) 10^3/uL MPV 9.4 (7.4-11.4) fL Neut # (Auto) 3.6 (1.5-6.6) 10^3/uL Lymph # (Auto) 1.2 L (1.5-3.5) 10^3/uL [place] # (Auto) 0.9 (0.0-1.0) 10^3/uL Eos # (Auto) 0.1 (0.0-0.7) 10^3/uL Baso # (Auto) 0.1 (0.0-0.1) 10^3/uL Absolute Nucleated RBC 0.00 x10^3/uL Nucleated RBC % 0.0 /100WBC Sodium 135 (135-145) mmol/L Potassium 4.6 (3.5-5.0) mmol/L Chloride 106 (101-111) mmol/L Carbon Dioxide 20 L (21-32) mmol/L Anion Gap 9.0 (6-13) BUN 27 H (6-20) mg/dL Creatinine 1.4 H (0.6-1.2) mg/dL Estimated GFR (MDRD) 49 L (>89) Glucose 120 H (70-100) mg/dL Estimat Average Glucose 235 H (70-100) mg/dL Hemoglobin A1c % 9.8 H (4.27-6.07) % Calcium 8.8 (8.5-10.3) mg/dL ABX Reporting Has patient been on IV antibiotics over the past 48 hours?: Yes Sepsis Event Note (H) - Evaluation Current Stage of Sepsis: Sepsis Possible source of Sepsis: positive: Unknown - Sepsis Criteria Sepsis Criteria: Recorded Temperature greater than 38.3C or Less than 36C, Recorded Respiratory Rate greater than 20, EYELET OPERATOR: altered consciousness (unrelated to primary neuro pathology), Metabolic: lactate > 2 mmol/L Assessment/Plan - Problem List (1) Sepsis Impression: This be secondary to either HCAP or a urinary tract infection. Blood cultures are growing Enterococcus faecalis and urine cultures pending but suspect this is likely to be the source of the bacteremia. Clinically he continues to improve and is afebrile with a normal white count. He remains on vancomycin and cefepime for the HCAP and urinary tract infection. We will continue these until we have sensitivities from the urine and will de-escalate appropriately. Qualifiers: Sepsis type: sepsis due to unspecified organism Sepsis acute organ dysfunction status: with acute organ dysfunction Severe sepsis acute organ dysfunction type: encephalopathy (2) HCAP (healthcare-associated pneumonia) Impression: His chest x-ray was consistent with pneumonia. Presented with dyspnea which is now resolved. He is not hypoxic. He is on vancomycin and cefepime for this with today being a day 3. We will de-escalate once we have urine cultures back to try and placed on just a single agent. He will need a total of 7 days for this. (3) Gram-positive bacteremia Impression: His blood cultures are growing Enterococcus faecalis. Suspect is related to the urinary tract infection although urine culture is pending. We will continue him on vancomycin and cefepime until we have sensitivities back. We have repeated blood cultures today and have ordered an echocardiogram although low suspicion for endocarditis. (4) UTI (urinary tract infection) Impression: Suspect this is the likely cause of his bacteremia and sepsis. CT yesterday did reveal nephrolithiasis without evidence of obstruction. Imaging was consistent with cystitis. We will keep him on vancomycin cefepime as mentioned above. Follow-up urine culture. (5) Acute kidney injury superimposed on chronic kidney disease Impression: His renal function is improving and today's count is 1.3. Suspect his acute kidney injury is likely due to obstructive uropathy from his urinary retention and possible component of prerenal injury. We will continue to avoid nephrotoxins and monitor his renal function and urine output. IV fluids have been discontinued. (6) Urinary retention with incomplete bladder emptying Impression: We discussed the importance of keeping Mahan catheter in place and the need for outpatient urology follow-up. We will continue Flomax. (7) Hx of coronary artery disease Impression: Stable. We will continue his home medications including Lipitor, aspirin, carvedilol. (8) Insulin dependent diabetes mellitus Impression: His blood glucose is much better controlled after initiating his home insulin regimen. We will continue this and sliding scale. Carb controlled diet.
[2020-10-05] MEDS: INSULIN ASPART 300 UNIT/3 ML PEN SUBQ SCH ×4 (09:16→21:14)
[2020-10-05] MEDS: DOCUSATE SODIUM 250 MG CAPSULE PO SCH (09:20)
[2020-10-05] MEDS: TAMSULOSIN 0.4 MG CAPSULE PO SCH (09:20)
[2020-10-05] MEDS: GABAPENTIN 300 MG CAPSULE PO SCH ×3 (09:20→21:14)
[2020-10-05] MEDS: polyethylene glycoL 3350 17 GM PACKET PO SCH (09:21)
[2020-10-05] MEDS: carvediloL 12.5 MG TABLET PO SCH ×2 (09:22→21:14)
[2020-10-05] MEDS: INSULIN GLARGINE 300 UNIT/3 ML PEN SUBQ SCH ×2 (09:25→21:15)
[2020-10-05] MEDS: VANCOMYCIN INJ 2 GM in SODIUM CHLORIDE 0.9% 500 ML IV SCH (18:15)
[2020-10-05] MEDS: CEFEPIME 2 GM in SODIUM CHLORIDE 0.9% MINIBAG 100 ML IV SCH (21:14)
[2020-10-05] MEDS: DULoxetine 30 MG CAPSULE PO SCH (21:14)
[2020-10-05] MEDS: ATORVASTATIN 10 MG TABLET PO SCH (21:14)
[2020-10-05] MEDS: oxyCODONE 5 MG TABLET PO PRN (21:18)
[2020-10-06] MEDS: oxyCODONE 5 MG TABLET PO PRN ×3 (02:13→18:35)
[2020-10-06] MEDS: SODIUM CHLORIDE FLUSH 0.9% 10 ML SYRINGE IVP PRN (02:16)
[2020-10-06] MEDS: SODIUM CHLORIDE FLUSH 0.9% 10 ML SYRINGE IVP SCH ×3 (02:16→17:32)
[2020-10-06 05:44] LABS: CALCIUM 8.5 mg/dL (8.5-10.3); CREATININE 1.3 mg/dL (0.6-1.2); POTASSIUM 4.5 mmol/L (3.5-5.0)
[2020-10-06 05:48] LABS: BASOPHILS % (AUTO) 0.5 %; EOSINOPHILS % (AUTO) 2.1 %; HCT - HEMATOCRIT 26.5 % (42.0-52.0); HGB - HEMOGLOBIN 8.6 g/dL (14.0-18.0); LYMPHOCYTES % (AUTO) 20.4 %; MEAN CORPUSCULAR HEMOGLOBIN 31.9 pg (27.0-31.0); MEAN CORPUSCULAR HGB CONC 32.5 g/dL (32.0-36.0); MEAN CORPUSCULAR VOLUME 98.1 fL (80.0-94.0); MEAN PLATELET VOLUME 9.5 fL (7.4-11.4); MONOCYTES % (AUTO) 18.9 %; NEUTROPHILS % (AUTO) 57.8 %; PLT - PLATELET COUNT 95 10^3/uL (130-450); RED CELL DISTRIBUTION WIDTH 13.4 % (12.0-15.0); WHITE BLOOD COUNT 6.2 x10^3/uL (4.8-10.8)
[2020-10-06 06:05] LABS: ABNORMAL LYMPHS % (MANUAL) 0 %
[2020-10-06 06:25] LABS: BAND NEUTROPHILS % (MANUAL) 3 %; EOSINOPHILS # (MANUAL) 0.2 10^3/uL (0-0.7); LYMPHOCYTES # (MANUAL) 1.2 10^3/uL (1.5-3.5); LYMPHOCYTES % (MANUAL) 20 %; MONOCYTES # (MANUAL) 0.4 10^3/uL (0.0-1.0); NEUTROPHILS # (MANUAL) 4.3 10^3/uL (1.5-6.6); PLATELET ESTIMATE, MANUAL DECREASED (<130,000) (NORMAL); RBC MORPHOLOGY (MULTIPLE) NORMAL APPEARANCE (NORMAL)
[2020-10-06 06:26] LABS: DIFFERENTIAL COMMENT MANUAL DIFFERENTIAL
[2020-10-06] MEDS: INSULIN ASPART 300 UNIT/3 ML PEN SUBQ SCH ×4 (07:30→21:40)
--- NOTE | 2020-10-06 09:09 | PROVIDER PROGRESS NOTE ---
Subjective - Prog Note Date Prog Note Date: 10/06/20 - Subjective Subjective: He complains of occasional left-sided abdominal pain otherwise reports feeling well. No chest pain or dyspnea. Current Medications - Current Medications Current Medications: Active Medications Acetaminophen (Acetaminophen 325 Mg Tablet) 650 mg PO Q4HR PRN PRN Reason: Pain or Fever > 38C (100.4F) Last Admin: 10/04/20 16:28 Dose: 650 mg Documented by: Atorvastatin Calcium (Atorvastatin 10 Mg Tablet) 40 mg PO QPM [facility] Last Admin: 10/05/20 21:14 Dose: 40 mg Documented by: Carvedilol (Carvedilol 12.5 Mg Tablet) 25 mg PO BID [facility] Last Admin: 10/05/20 21:14 Dose: 25 mg Documented by: Docusate Sodium (Docusate Sodium 250 Mg Capsule) 250 - 500 mg PO DAILY [facility] Last Admin: 10/05/20 09:20 Dose: 250 mg Documented by: Duloxetine HCl (Duloxetine 30 Mg Capsule) 60 mg PO [facility] Last Admin: 10/05/20 21:14 Dose: 60 mg Documented by: Gabapentin (Gabapentin 300 Mg Capsule) 600 mg PO HS [facility] Last Admin: 10/05/20 21:14 Dose: 600 mg Documented by: Gabapentin (Gabapentin 300 Mg Capsule) 300 mg PO 0800,1500 [facility] Last Admin: 10/05/20 14:52 Dose: 300 mg Documented by: Heparin Sodium (Porcine) (Heparin 5,000 Unit/Ml Vial) 5,000 unit SUBQ BID [facility] Cefepime HCl 2 gm/ Sodium (Chloride) 100 mls @ 200 mls/hr IV Q24H [facility] Last Infusion: 10/05/20 22:03 Dose: Infused Documented by: Vancomycin HCl 2 gm/ Sodium (Chloride) 500 mls @ 250 mls/hr IV Q24H [facility] Last Infusion: 10/05/20 21:13 Dose: Infused Documented by: Insulin Aspart (Insulin Aspart 300 Unit/3 Ml Pen) 1 - 9 unit SUBQ 080 0,1200,1700,2100 [facility]; Protocol Last Admin: 10/06/20 07:30 Dose: Not Given Documented by: Insulin Glargine (Insulin Glargine 300 Unit/3 Ml Pen) 110 unit SUBQ BID [facility] Last Admin: 10/05/20 21:15 Dose: 110 unit Documented by: Multi-Ingredient Ointment (Zinc Oxide 20% Oint 30 Gm Tube) 1 applic TOP PRN PRN PRN Reason: Skin Care Last Admin: 10/04/20 14:21 Dose: 1 applic Documented by: Ondansetron HCl (Ondansetron 4 Mg/2 Ml Vial) 4 mg IVP Q6HR PRN PRN Reason: Nausea / Vomiting Oxycodone HCl (Oxycodone 5 Mg Tablet) 5 mg PO Q4HR PRN PRN Reason: PAIN Last Admin: 10/06/20 02:13 Dose: 5 mg Documented by: Polyethylene Glycol (Polyethylene Glycol 3350 17 Gm Packet) 17 gm PO DAILY [facility] Last Admin: 10/05/20 09:21 Dose: 17 gm Documented by: Sodium Chloride (Sodium Chloride Flush 0.9% 10 Ml Syringe) 10 ml IVP PRN PRN PRN Reason: NEEDED PER PROVIDER ORDERS Last Admin: 10/06/20 02:16 Dose: 10 ml Documented by: Sodium Chloride (Sodium Chloride Flush 0.9% 10 Ml Syringe) 10 ml IVP 0100,0900,1700 [facility] Last Admin: 10/06/20 02:16 Dose: 10 ml Documented by: Tamsulosin HCl (Tamsulosin 0.4 Mg Capsule) 0.4 mg PO DAILY [facility] Last Admin: 10/05/20 09:20 Dose: 0.4 mg Documented by: Loratadine 10 mg PO DAILY 11/07/12 Furosemide 40 mg PO BID 12/30/17 Gabapentin [Neurontin] 300 mg PO TID 06/01/18 Losartan [Cozaar] 50 mg PO DAILY 06/01/18 Insulin Glargine [Lantus Solostar] 110 unit SUBQ BID 10/02/20 Ascorbic Acid [Vitamin C] 500 mg PO DAILY 10/05/20 Duloxetine HCl [Cymbalta] 60 mg PO HS 10/05/20 Multivitamin 1 tab PO 10/05/20 Objective - Vital Signs/Intake & Output Reviewed Vital Signs: Yes Vital Signs: Vital Signs x48h Temp Pulse Resp BP Pulse Ox 10/06/20 07:29 36.7 C 71 20 125/76 95 10/06/20 05:00 36.9 C 70 22 98/60 97 Intake & Output: Intake & Output 10/03/20 10/04/20 10/05/20 10/06/20 23:59 23:59 23:59 23:59 Intake Total 1700 4060.33 4080 Output Total 1800 1475 3550 750 Balance -100 2585.33 530 -750 - Objective General Appearance: positive: No acute distress, Alert Eyes Bilateral: positive: Normal inspection ENT: positive: ENT inspection nml Neck: positive: Nml inspection Respiratory: positive: No respiratory distress, Rhonchi. negative: Wheezes, Rales Cardiovascular: positive: Regular rate & rhythm, No murmur. negative: Tachycardia Abdomen: positive: No distention, Tenderness (Occasional tenderness in the left lower quadrant which is not always present on palpation). negative: Non-tender, Guarding, Rebound Skin: positive: Warm, Dry Extremities: positive: No pedal edema, Other (Right BKA.) Neurologic/Psychiatric: negative: Disoriented to person, Disoriented to place - Lab Results Fish Bones: 10/06/20 05:10 10/06/20 05:10 Other Labs: Lab Results x24hrs 10/06/20 10/06/20 Range/Units 05:10 05:10 WBC 6.2 (4.8-10.8) x10^3/uL RBC 2.70 L (4.70-6.10) 10^6/uL Hgb 8.6 L (14.0-18.0) g/dL Hct 26.5 L (42.0-52.0) % MCV 98.1 H (80.0-94.0) fL MCH 31.9 H (27.0-31.0) pg MCHC 32.5 (32.0-36.0) g/dL RDW 13.4 (12.0-15.0) % Plt Count 95 L (130-450) 10^3/uL MPV 9.5 (7.4-11.4) fL Neut # (Auto) Not Reportable Lymph # (Auto) Not Reportable [place] # (Auto) Not Reportable Eos # (Auto) Not Reportable Baso # (Auto) Not Reportable Absolute Nucleated RBC Not Reportable Total Counted 100 Band Neuts % (Manual) 3 (0 - 10) % Abnorm Lymph % (Manual) 0 % Nucleated RBC % Not Reportable Neutrophils # (Manual) 4.3 (1.5-6.6) 10^3/uL Lymphocytes # (Manual) 1.2 L (1.5-3.5) 10^3/uL Monocytes # (Manual) 0.4 (0.0-1.0) 10^3/uL Eosinophils # (Manual) 0.2 (0-0.7) 10^3/uL Basophils # (Manual) 0.0 (0-0.1) 10^3/uL Differential Comment MANUAL DIFFERENTIAL Platelet Estimate DECREASED (<130,000) (NORMAL) RBC Morph Micro Appear NORMAL APPEARANCE (NORMAL) Sodium 133 L (135-145) mmol/L Potassium 4.5 (3.5-5.0) mmol/L Chloride 106 (101-111) mmol/L Carbon Dioxide 20 L (21-32) mmol/L Anion Gap 7.0 (6-13) BUN 23 H (6-20) mg/dL Creatinine 1.3 H (0.6-1.2) mg/dL Estimated GFR (MDRD) 54 L (>89) Glucose 102 H (70-100) mg/dL Calcium 8.5 (8.5-10.3) mg/dL ABX Reporting Has patient been on IV antibiotics over the past 48 hours?: Yes Sepsis Event Note (H) - Evaluation Current Stage of Sepsis: Resolved Possible source of Sepsis: positive: Genitourinary - Sepsis Criteria Sepsis Criteria: Recorded Temperature greater than 38.3C or Less than 36C, Recorded Respiratory Rate greater than 20, SIGNAL WORKER: altered consciousness (unrelated to primary neuro pathology), Metabolic: lactate > 2 mmol/L Assessment/Plan - Problem List (1) Gram-positive bacteremia Impression: Cultures are growing Enterococcus faecalis and we have repeated blood cultures yesterday which are pending. This is likely related to the UTI given preliminary it is growing Enterococcus although it is less than 10,000 CFU. We have kept him on vancomycin and cefepime but the cefepime will likely be discontinued over the next 24 hours. Follow-up repeat blood cultures and then we will need to discuss with infectious disease regarding length of treatment. (2) UTI (urinary tract infection) Impression: Suspect this is the cause of his bacteremia given urine cultures growing Enteroc occus although is less than 10,000 CFU. We are still awaiting sensitivities and speciation. He remains on vancomycin and cefepime. We will de-escalate based off of sensitivities. (3) HCAP (healthcare-associated pneumonia) Impression: There was concern for HCAP given chest x-ray was consistent with pneumonia and he was just recently hospitalized. He is not hypoxic or dyspneic. He remains on vancomycin and cefepime given the bacteremia. We can likely switch the cefepime to oral Levaquin tomorrow. He will need 7 days of therapy for this. (4) Acute kidney injury superimposed on chronic kidney disease Impression: This has resolved. His creatinine is 1.3 which is around his baseline. Suspect his kidney injury related to obstructive uropathy. We have resumed his home Lasix, spironolactone, losartan. Continue to monitor renal function urine output. (5) Urinary retention with incomplete bladder emptying Impression: A Mahan catheter remains in place and he will need this on discharge. We will continue Flomax and have him follow-up with his primary care provider and urology. (6) Hx of coronary artery disease Impression: Stable. Continue his home medications. (7) Insulin dependent diabetes mellitus Impression: His blood glucose was in the 70s morning but there have been no documented episodes of hypoglycemia. We will continue his current insulin regimen but if he has hypoglycemia or a borderline low blood sugar again we will decrease his evening dose of Lantus. Continue carb controlled diet. (8) Sepsis Impression: This has now resolved. Suspect is more likely secondary to the urinary tract infection given it is growing Enterococcus and he is bacteremic with Enterococcus faecalis. Qualifiers: Sepsis type: sepsis due to unspecified organism Sepsis acute organ dysfunction status: with acute organ dysfunction Severe sepsis acute organ dysfunction type: encephalopathy
[2020-10-06] MEDS: TAMSULOSIN 0.4 MG CAPSULE PO SCH (09:22)
[2020-10-06] MEDS: HEPARIN 5,000 UNIT/ML VIAL SUBQ SCH ×2 (09:22→21:40)
[2020-10-06] MEDS: DOCUSATE SODIUM 250 MG CAPSULE PO SCH (09:22)
[2020-10-06] MEDS: carvediloL 12.5 MG TABLET PO SCH ×2 (09:22→21:39)
[2020-10-06] MEDS: GABAPENTIN 300 MG CAPSULE PO SCH ×3 (09:22→21:39)
[2020-10-06] MEDS: polyethylene glycoL 3350 17 GM PACKET PO SCH (09:23)
[2020-10-06] MEDS: ACETAMINOPHEN 325 MG TABLET PO PRN (09:26)
[2020-10-06] MEDS: INSULIN GLARGINE 300 UNIT/3 ML PEN SUBQ SCH ×2 (11:53→21:40)
[2020-10-06] MEDS: PRENATAL VITAMIN TABLET PO SCH (11:57)
[2020-10-06] MEDS: THIAMINE 100 MG TABLET PO SCH (11:57)
[2020-10-06 17:40] LABS: VANCOMYCIN,TROUGH 17.3 ug/mL (10.0-20.0)
[2020-10-06] MEDS: VANCOMYCIN INJ 1 GM, VANCOMYCIN INJ 500 MG in SODIUM CHLORIDE 0.9% 500 ML IV SCH (18:36)
[2020-10-06] MEDS: CEFEPIME 2 GM in SODIUM CHLORIDE 0.9% MINIBAG 100 ML IV SCH (20:11)
[2020-10-06] MEDS: FUROSEMIDE 40 MG TABLET PO SCH (21:39)
[2020-10-06] MEDS: DULoxetine 30 MG CAPSULE PO SCH (21:39)
[2020-10-06] MEDS: ATORVASTATIN 10 MG TABLET PO SCH (21:39)
[2020-10-07] MEDS: ACETAMINOPHEN 325 MG TABLET PO PRN ×3 (00:46→14:09)
[2020-10-07] MEDS: oxyCODONE 5 MG TABLET PO PRN ×3 (00:46→22:04)
[2020-10-07] MEDS: SODIUM CHLORIDE FLUSH 0.9% 10 ML SYRINGE IVP PRN (00:53)
[2020-10-07] MEDS: SODIUM CHLORIDE FLUSH 0.9% 10 ML SYRINGE IVP SCH ×3 (00:53→22:04)
[2020-10-07] MEDS: diphenhydrAMINE 25 MG CAPSULE PO PRN ×3 (01:09→14:09)
[2020-10-07] MEDS ORDERED: SODIUM CHLORIDE FLUSH 0.9% 10 ML SYRINGE IVP PRN (03:42)
[2020-10-07] MEDS ORDERED: DEXTROSE 5%-0.9% NACL 1,000 ML IV SCH (08:00)
[2020-10-07 08:30] LABS: % IRON SATURATION 10 % (20-50); IRON 23 ug/dL (45-182); TOTAL IRON BINDING CAPACITY 237 ug/dL (250-450); TRANSFERRIN 169 mg/dL (180-329)
--- NOTE | 2020-10-07 08:35 | XRAY Report ---
PROCEDURE: Chest 1 View X-Ray INDICATIONS: Follow-up CHF TECHNIQUE: One view of the chest was acquired. COMPARISON: 10/03/2020 FINDINGS: Surgical changes and devices: Right IJ central line is unchanged in position. Lungs and pleura: No pleural effusions or pneumothorax. Stable increased interstitial opacities. Mediastinum: Mediastinal contours appear normal. Heart size is normal. Bones and chest wall: No suspicious bony lesions. Overlying soft tissues appear unremarkable. IMPRESSION: Unchanged increased interstitial markings. Reviewed by: Alvino Montero MD on 10/07/2020 8:33 AM PDT Approved by: Alvino Montero MD on 10/07/2020 8:33 AM PDT Station ID: [id number]
[2020-10-07 08:46] LABS: FERRITIN 225.3 ng/mL (23.9-336.2)
[2020-10-07] MEDS ORDERED: INSULIN GLARGINE 300 UNIT/3 ML PEN SUBQ SCH ×2 (09:00→21:00)
[2020-10-07] MEDS ORDERED: NON FORMULARY MED (Omeprazole [Prilosec] 20 MG Capsule) PO SCH (09:00)
[2020-10-07] MEDS: polyethylene glycoL 3350 17 GM PACKET PO SCH (11:49)
[2020-10-07] MEDS: FUROSEMIDE 40 MG TABLET PO SCH ×2 (11:53→22:04)
[2020-10-07] MEDS: SPIRONOLACTONE 25 MG TABLET PO SCH (11:54)
[2020-10-07] MEDS: DOCUSATE SODIUM 250 MG CAPSULE PO SCH (11:54)
[2020-10-07] MEDS: carvediloL 12.5 MG TABLET PO SCH ×2 (11:55→22:03)
[2020-10-07] MEDS: THIAMINE 100 MG TABLET PO SCH (11:55)
[2020-10-07] MEDS: GABAPENTIN 300 MG CAPSULE PO SCH ×3 (11:56→22:04)
[2020-10-07] MEDS: TAMSULOSIN 0.4 MG CAPSULE PO SCH (11:56)
[2020-10-07] MEDS: ASPIRIN EC 81 MG TABLET PO SCH (11:58)
[2020-10-07] MEDS: HEPARIN 5,000 UNIT/ML VIAL SUBQ SCH ×2 (11:59→22:11)
[2020-10-07] MEDS: PRENATAL VITAMIN TABLET PO SCH (11:59)
[2020-10-07] MEDS: INSULIN ASPART 300 UNIT/3 ML PEN SUBQ SCH ×4 (11:59→22:05)
[2020-10-07] MEDS: LOSARTAN 50 MG TABLET PO SCH (12:14)
[2020-10-07] MEDS: VANCOMYCIN INJ 1 GM, VANCOMYCIN INJ 500 MG in SODIUM CHLORIDE 0.9% 500 ML IV SCH (13:58)
--- NOTE | 2020-10-07 15:13 | PROVIDER PROGRESS NOTE ---
Subjective - Prog Note Date Prog Note Date: 10/07/20 - Subjective Subjective: He still complains of occasional flank pain but otherwise has no complaints. No chest pain or dyspnea. Current Medications - Current Medications Current Medications: Active Medications Acetaminophen (Acetaminophen 325 Mg Tablet) 650 mg PO Q4HR PRN PRN Reason: Pain or Fever > 38C (100.4F) Last Admin: 10/07/20 14:09 Dose: 650 mg Documented by: Aspirin (Aspirin Ec 81 Mg Tablet) 81 mg PO DAILY [facility] Last Admin: 10/07/20 11:58 Dose: 81 mg Documented by: Atorvastatin Calcium (Atorvastatin 10 Mg Tablet) 40 mg PO QPM [facility] Last Admin: 10/06/20 21:39 Dose: 40 mg Documented by: Carvedilol (Carvedilol 12.5 Mg Tablet) 25 mg PO BID [facility] Last Admin: 10/07/20 11:55 Dose: 25 mg Documented by: Diphenhydramine HCl (Diphenhydramine 25 Mg Capsule) 25 mg PO Q4HR PRN PRN Reason: Allergy Symptoms Last Admin: 10/07/20 14:09 Dose: 25 mg Documented by: Docusate Sodium (Docusate Sodium 250 Mg Capsule) 250 - 500 mg PO DAILY [facility] Last Admin: 10/07/20 11:54 Dose: 250 mg Documented by: Duloxetine HCl (Duloxetine 30 Mg Capsule) 60 mg PO [facility] Last Admin: 10/06/20 21:39 Dose: 60 mg Documented by: Furosemide (Furosemide 40 Mg Tablet) 40 mg PO BID [facility] Last Admin: 10/07/20 11:53 Dose: 40 mg Documented by: Gabapentin (Gabapentin 300 Mg Capsule) 600 mg PO HS [facility] Last Admin: 10/06/20 21:39 Dose: 600 mg Documented by: Gabapentin (Gabapentin 300 Mg Capsule) 300 mg PO 0800,1500 [facility] Last Admin: 10/07/20 16:45 Dose: 300 mg Documented by: Heparin Sodium (Porcine) (Heparin 5,000 Unit/Ml Vial) 5,000 unit SUBQ BID [facility] Last Admin: 10/07/20 11:59 Dose: Not Given Documented by: Vancomycin HCl 1 gm/Vancomycin HCl 500 mg/ Sodium Chloride 500 mls @ 250 mls/hr IV Q18H [facility] Last Admin: 10/07/20 13:58 Dose: 250 mls/hr Documented by: Cefepime HCl 2 gm/ Sodium (Chloride) 100 mls @ 200 mls/hr IV Q12H [facility] Last Admin: 10/07/20 16:46 Dose: 200 mls/hr Documented by: Insulin Aspart (Insulin Aspart 300 Unit/3 Ml Pen) 1 - 9 unit SUBQ 0800,1200,1700,2100 [facility]; Protocol Last Admin: 10/07/20 17:41 Dose: Not Given Documented by: Insulin Glargine (Insulin Glargine 300 Unit/3 Ml Pen) 110 unit SUBQ DAILY [facility] Last Admin: 10/07/20 12:02 Dose: 110 unit Documented by: Insulin Glargine (Insulin Glargine 300 Unit/3 Ml Pen) 90 unit SUBQ QPM [facility] Losartan Potassium (Losartan 50 Mg Tablet) 50 mg PO DAILY [facility] Last Admin: 10/07/20 12:14 Dose: 50 mg Documented by: Multi-Ingredient Ointment (Zinc Oxide 20% Oint 30 Gm Tube) 1 applic TOP PRN PRN PRN Reason: Skin Care Last Admin: 10/04/20 14:21 Dose: 1 applic Documented by: Ondansetron HCl (Ondansetron 4 Mg/2 Ml Vial) 4 mg IVP Q6HR PRN PRN Reason: Nausea / Vomiting Oxycodone HCl (Oxycodone 5 Mg Tablet) 5 mg PO Q4HR PRN PRN Reason: PAIN Last Admin: 10/07/20 11:56 Dose: 5 mg Documented by: Polyethylene Glycol (Polyethylene Glycol 3350 17 Gm Packet) 17 gm PO DAILY [facility] Last Admin: 10/07/20 11:49 Dose: 17 gm Documented by: Multivit/Folic Acid/Iron ( Vitamin Tablet) 1 tab PO DAILYWM [facility] Last Admin: 10/07/20 11:59 Dose: 1 tab Documented by: Sodium Chloride (Sodium Chloride Flush 0.9% 10 Ml Syringe) 10 ml IVP PRN PRN PRN Reason: NEEDED PER PROVIDER ORDERS Last Admin: 10/07/20 00:53 Dose: 10 ml Documented by: Sodium Chloride (Sodium Chloride Flush 0.9% 10 Ml Syringe) 10 ml IVP 0100,0900,1700 [facility] Last Admin: 10/07/20 12:15 Dose: 10 ml Documented by: Sodium Chloride (Sodium Chloride Flush 0.9% 10 Ml Syringe) 20 ml IVP PRN PRN PRN Reason: After Blood Draw Spironolactone (Spironolactone 25 Mg Tablet) 25 mg PO DAILY [facility] Last Admin: 10/07/20 11:54 Dose: 25 mg Documented by: Tamsulosin HCl (Tamsulosin 0.4 Mg Capsule) 0.4 mg PO DAILY [facility] Last Admin: 10/07/20 11:56 Dose: 0.4 mg Documented by: Thiamine HCl (Thiamine 100 Mg Tablet) 100 mg PO DAILY [facility] Last Admin: 10/07/20 11:55 Dose: 100 mg Documented by: Loratadine 10 mg PO DAILY 11/07/12 Furosemide 40 mg PO BID 12/30/17 Gabapentin [Neurontin] 300 mg PO TID 06/01/18 Losartan [Cozaar] 50 mg PO DAILY 06/01/18 Insulin Glargine [Lantus Solostar] 110 unit SUBQ BID 10/02/20 Ascorbic Acid [Vitamin C] 500 mg PO DAILY 10/05/20 Duloxetine HCl [Cymbalta] 60 mg PO 10/05/20 Multivitamin 1 tab PO 10/05/20 Objective - Vital Signs/Intake & Output Reviewed Vital Signs: Yes Vital Signs: Vital Signs x48h Temp Pulse Resp BP Pulse Ox 10/07/20 11:29 36.6 C 69 18 145/78 H 100 10/07/20 07:32 36.8 C 63 20 123/81 H 98 Intake & Output: Intake & Output 10/04/20 10/05/20 10/06/20 10/07/20 23:59 23:59 23:59 23:59 Intake Total 4060.33 4080 1558 1950 Output Total 1475 3550 1875 3050 Balance 2585.33 530 -690 -1100 - Objective General Appearance: positive: No acute distress, Alert Eyes Bilateral: positive: Normal inspection, Conjunctivae nml ENT: positive: ENT inspection nml Neck: positive: Nml inspection Respiratory: positive: No respiratory distress. negative: Wheezes, Rales Abdomen: positive: Nml bowel sounds, Tenderness (Occasional tenderness in the left flank). negative: Guarding, Rebound Skin: positive: Warm, Dry Extremities: positive: Other (Right BKA.) - Lab Results Fish Bones: 10/06/20 05:10 10/06/20 05:10 Other Labs: Lab Results x24hrs 10/07/20 10/07/20 10/07/20 Range/Units 05:10 05:10 05:10 Iron 23 L (45-182) ug/dL TIBC 237 L (250-450) ug/dL % Saturation 10 L (20-50) % Transferrin 169 L (180-329) mg/dL Ferritin 225.3 (23.9-336.2) ng/mL C-Reactive Protein 10.4 H (0-1.0) mg/dL Vitamin B12 819 (180-914) pg/mL Folate 26.00 (5.90 - >24.8) ng/mL Last Dose Date Last Dose Time Vancomycin Trough (10.0-20.0) ug/mL 10/06/20 Range/Units 17:26 Iron (45-182) ug/dL TIBC (250-450) ug/dL % Saturation (20-50) % Transferrin (180-329) mg/dL Ferritin (23.9-336.2) ng/mL C-Reactive Protein (0-1.0) mg/dL Vitamin B12 (180-914) pg/mL Folate (5.90 - >24.8) ng/mL Last Dose Date Last Dose Time 2112 Vancomycin Trough 17.3 (10.0-20.0) ug/mL Sepsis Event Note (H) - Evaluation Current Stage of Sepsis: Resolved Possible source of Sepsis: positive: Genitourinary - Sepsis Criteria Sepsis Criteria: Recorded Temperature greater than 38.3C or Less than 36C, Recorded Respiratory Rate greater than 20, 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 Repeat cultures have been negative to date. I did speak with infectious disease today they do recommend 2 weeks of IV antibiotics. They recommended either ampicillin via pump if the patient can do home infusion otherwise daptomycin once a day at 6 to 8 mg/kg would be reasonable at an outpatient infusion clinic. I suspect the patient will likely need to go to our [facility] clinic for outpatient IV antibiotics and therefore will likely do the daptomycin. We will order a baseline CK level. (2) UTI (urinary tract infection) Impression: This is the cause of his bacteremia. He remains on vancomycin based on sensitivities. We will switch to daptomycin on discharge given the bacteremia and we will treat for total of 2 weeks. (3) Urinary retention with incomplete bladder emptying Impression: A Mahan catheter remains in place and he will need this on discharge. We will continue Flomax and have him follow-up with his primary care provider and urology. (4) Hx of coronary artery disease Impression: Stable. Continue his home medications. (5) Insulin dependent diabetes mellitus Impression: He was hypotensive this morning with blood glucose in the 60s. We will decrease his evening Lantus to 90 units and continue on 10 units in the morning. Continue carb controlled diet. (6) Sepsis Impression: This has resolved. This is secondary to the UTI and Enterococcus bacteremia. Qualifiers: Sepsis type: sepsis due to unspecified organism Sepsis acute organ dysfunction status: with acute organ dysfunction Severe sepsis acute organ dysfunction type: encephalopathy (7) Acute kidney injury superimposed on chronic kidney disease Impression: This has resolved. His renal function is at baseline. We have continued his home diuretics. Continue to monitor his renal function. (8) HCAP (healthcare-associated pneumonia) Impression: We were treating him for HCAP given chest x-ray was consistent with pneumonia and he was recently hospitalized. Clinically does not appear to have pneumonia and is likely he was septic this whole time from the UTI. We will discontinue cefepime.
[2020-10-07] MEDS ORDERED: CEFEPIME 2 GM in SODIUM CHLORIDE 0.9% MINIBAG 100 ML IV SCH (17:00)
[2020-10-07] MEDS: DULoxetine 30 MG CAPSULE PO SCH (22:03)
[2020-10-07] MEDS: ATORVASTATIN 10 MG TABLET PO SCH (22:03)
[2020-10-08] MEDS: diphenhydrAMINE 25 MG CAPSULE PO PRN ×4 (00:05→19:51)
[2020-10-08] MEDS: SODIUM CHLORIDE FLUSH 0.9% 10 ML SYRINGE IVP SCH ×3 (00:05→17:13)
[2020-10-08 06:52] LABS: CALCIUM 9.2 mg/dL (8.5-10.3); CREATININE 1.1 mg/dL (0.6-1.2); MAGNESIUM 2.1 mg/dL (1.7-2.8); POTASSIUM 4.1 mmol/L (3.5-5.0)
[2020-10-08 06:55] LABS: CK- CREATINE KINASE 53 IU/L (22-269); VANCOMYCIN,TROUGH 21.3 ug/mL (10.0-20.0)
[2020-10-08 07:24] LABS: BASOPHILS # (AUTO) 0.1 10^3/uL (0.0-0.1); BASOPHILS % (AUTO) 0.9 %; EOSINOPHILS # (AUTO) 0.2 10^3/uL (0.0-0.7); EOSINOPHILS % (AUTO) 3.3 %; HCT - HEMATOCRIT 30.1 % (42.0-52.0); HGB - HEMOGLOBIN 9.9 g/dL (14.0-18.0); LYMPHOCYTES # (AUTO) 1.1 10^3/uL (1.5-3.5); LYMPHOCYTES % (AUTO) 15.4 %; MEAN CORPUSCULAR HGB CONC 32.9 g/dL (32.0-36.0); MEAN CORPUSCULAR VOLUME 97.4 fL (80.0-94.0); MEAN PLATELET VOLUME 9.5 fL (7.4-11.4); MONOCYTES # (AUTO) 0.7 10^3/uL (0.0-1.0); MONOCYTES % (AUTO) 10.3 %; NEUTROPHILS # (AUTO) 4.8 10^3/uL (1.5-6.6); NEUTROPHILS % (AUTO) 69.1 %; PLT - PLATELET COUNT 133 10^3/uL (130-450); RED BLOOD COUNT 3.09 10^6/uL (4.70-6.10); RED CELL DISTRIBUTION WIDTH 13.4 % (12.0-15.0)
[2020-10-08] MEDS: VANCOMYCIN INJ 1 GM, VANCOMYCIN INJ 500 MG in SODIUM CHLORIDE 0.9% 500 ML IV SCH (07:48)
[2020-10-08] MEDS: SODIUM CHLORIDE FLUSH 0.9% 10 ML SYRINGE IVP PRN (07:48)
[2020-10-08] MEDS: polyethylene glycoL 3350 17 GM PACKET PO SCH (10:09)
[2020-10-08] MEDS: GABAPENTIN 300 MG CAPSULE PO SCH ×3 (10:11→20:40)
[2020-10-08] MEDS: carvediloL 12.5 MG TABLET PO SCH ×2 (10:11→20:39)
[2020-10-08] MEDS: ASPIRIN EC 81 MG TABLET PO SCH (10:11)
[2020-10-08] MEDS: TAMSULOSIN 0.4 MG CAPSULE PO SCH (10:12)
[2020-10-08] MEDS: FUROSEMIDE 40 MG TABLET PO SCH ×2 (10:13→20:39)
[2020-10-08] MEDS: THIAMINE 100 MG TABLET PO SCH (10:13)
[2020-10-08] MEDS: PRENATAL VITAMIN TABLET PO SCH (10:13)
[2020-10-08] MEDS: SPIRONOLACTONE 25 MG TABLET PO SCH (10:14)
[2020-10-08] MEDS: oxyCODONE 5 MG TABLET PO PRN ×3 (10:14→18:30)
[2020-10-08] MEDS: DOCUSATE SODIUM 250 MG CAPSULE PO SCH (10:15)
[2020-10-08] MEDS: INSULIN ASPART 300 UNIT/3 ML PEN SUBQ SCH ×4 (10:15→20:15)
[2020-10-08] MEDS: INSULIN GLARGINE 300 UNIT/3 ML PEN SUBQ SCH ×2 (10:16→20:40)
[2020-10-08] MEDS: HEPARIN 5,000 UNIT/ML VIAL SUBQ SCH ×2 (10:16→20:39)
--- NOTE | 2020-10-08 11:47 | PROVIDER PROGRESS NOTE ---
Subjective - Prog Note Date Prog Note Date: 10/08/20 - Subjective Subjective: He continues to complain of occasional left-sided pain. This is only present on palpation. He reports no bowel movement for 2 days. He reports occasional itching with the NovoLog. Current Medications - Current Medications Current Medications: Active Medications Acetaminophen (Acetaminophen 325 Mg Tablet) 650 mg PO Q4HR PRN PRN Reason: Pain or Fever > 38C (100.4F) Last Admin: 10/07/20 14:09 Dose: 650 mg Documented by: Aspirin (Aspirin Ec 81 Mg Tablet) 81 mg PO DAILY [facility] Last Admin: 10/08/20 10:11 Dose: 81 mg Documented by: Atorvastatin Calcium (Atorvastatin 10 Mg Tablet) 40 mg PO QPM [facility] Last Admin: 10/07/20 22:03 Dose: 40 mg Documented by: Carvedilol (Carvedilol 12.5 Mg Tablet) 25 mg PO BID [facility] Last Admin: 10/08/20 10:11 Dose: 25 mg Documented by: Diphenhydramine HCl (Diphenhydramine 25 Mg Capsule) 25 mg PO Q4HR PRN PRN Reason: Allergy Symptoms Last Admin: 10/08/20 10:12 Dose: 25 mg Documented by: Docusate Sodium (Docusate Sodium 250 Mg Capsule) 250 - 500 mg PO DAILY [facility] Last Admin: 10/08/20 10:15 Dose: 250 mg Documented by: Duloxetine HCl (Duloxetine 30 Mg Capsule) 60 mg PO HS [facility] Last Admin: 10/07/20 22:03 Dose: 60 mg Documented by: Furosemide (Furosemide 40 Mg Tablet) 40 mg PO BID [facility] Last Admin: 10/08/20 10:13 Dose: 40 mg Documented by: Gabapentin (Gabapentin 300 Mg Capsule) 600 mg PO HS [facility] Last Admin: 10/07/20 22:04 Dose: 600 mg Documented by: Gabapentin (Gabapentin 300 Mg Capsule) 300 mg PO 0800,1500 [facility] Last Admin: 10/08/20 10:11 Dose: 300 mg Documented by: Heparin Sodium (Porcine) (Heparin 5,000 Unit/Ml Vial) 5,000 unit SUBQ BID [facility] Last Admin: 10/08/20 10:16 Dose: 5,000 unit Documented by: Ampicillin Sodium 2 gm/ Sodium (Chloride) 100 mls @ 100 mls/hr IV Q4HR [facility] Insulin Aspart (Insulin Aspart 300 Unit/3 Ml Pen) 1 - 9 unit SUBQ 0800,1200,1700,2100 [facility]; Protocol Last Admin: 10/08/20 10:15 Dose: Not Given Documented by: Insulin Glargine (Insulin Glargine 300 Unit/3 Ml Pen) 100 unit SUBQ DAILY [facility] Last Admin: 10/08/20 10:16 Dose: 100 unit Documented by: Insulin Glargine (Insulin Glargine 300 Unit/3 Ml Pen) 75 unit SUBQ QPM [facility] Losartan Potassium (Losartan 50 Mg Tablet) 50 mg PO DAILY [facility] Last Admin: 10/07/20 12:14 Dose: 50 mg Documented by: Multi-Ingredient Ointment (Zinc Oxide 20% Oint 30 Gm Tube) 1 applic TOP PRN PRN PRN Reason: Skin Care Last Admin: 10/04/20 14:21 Dose: 1 applic Documented by: Ondansetron HCl (Ondansetron 4 Mg/2 Ml Vial) 4 mg IVP Q6HR PRN PRN Reason: Nausea / Vomiting Oxycodone HCl (Oxycodone 5 Mg Tablet) 5 mg PO Q4HR PRN PRN Reason: PAIN Last Admin: 10/08/20 10:14 Dose: 5 mg Documented by: Polyethylene Glycol (Polyethylene Glycol 3350 17 Gm Packet) 17 gm PO DAILY [facility] Last Admin: 10/08/20 10:09 Dose: 17 gm Documented by: Multivit/Folic Acid/Iron ( Vitamin Tablet) 1 tab PO DAILYWM [facility] Last Admin: 10/08/20 10:13 Dose: 1 tab Documented by: Sodium Chloride (Sodium Chloride Flush 0.9% 10 Ml Syringe) 10 ml IVP PRN PRN PRN Reason: NEEDED PER PROVIDER ORDERS Last Admin: 10/08/20 07:48 Dose: 10 ml Documented by: Sodium Chloride (Sodium Chloride Flush 0.9% 10 Ml Syringe) 10 ml IVP 0100,0900,1700 [facility] Last Admin: 10/08/20 10:08 Dose: 10 ml Documented by: Sodium Chloride (Sodium Chloride Flush 0.9% 10 Ml Syringe) 20 ml IVP PRN PRN PRN Reason: After Blood Draw Spironolactone (Spironolactone 25 Mg Tablet) 25 mg PO DAILY [facility] Last Admin: 10/08/20 10:14 Dose: 25 mg Documented by: Tamsulosin HCl (Tamsulosin 0.4 Mg Capsule) 0.4 mg PO DAILY [facility] Last Admin: 10/08/20 10:12 Dose: 0.4 mg Documented by: Thiamine HCl (Thiamine 100 Mg Tablet) 100 mg PO DAILY [facility] Last Admin: 10/08/20 10:13 Dose: 100 mg Documented by: Loratadine 10 mg PO DAILY 11/07/12 Furosemide 40 mg PO BID 12/30/17 Gabapentin [Neurontin] 300 mg PO TID 06/01/18 Losartan [Cozaar] 50 mg PO DAILY 06/01/18 Insulin Glargine [Lantus Solostar] 110 unit SUBQ BID 10/02/20 Ascorbic Acid [Vitamin C] 500 mg PO DAILY 10/05/20 Duloxetine HCl [Cymbalta] 60 mg PO HS 10/05/20 Multivitamin 1 tab PO 10/05/20 Objective - Vital Signs/Intake & Output Reviewed Vital Signs: Yes Vital Signs: Vital Signs x48h Temp Pulse Resp BP Pulse Ox 10/08/20 05:00 36.4 C L 69 16 132/70 H 98 Intake & Output: Intake & Output 10/05/20 10/06/20 10/07/20 10/08/20 23:59 23:59 23:59 23:59 Intake Total 4080 1558 3350 1000 Output Total 3550 1877 2256 2427 Balance 530 -025 -1521 -5982 - Objective General Appearance: positive: No acute distress, Alert Eyes Bilateral: positive: Normal inspection, Conjunctivae nml ENT: positive: ENT inspection nml Neck: positive: Nml inspection Respiratory: positive: No respiratory distress. negative: Wheezes, Rales Cardiovascular: positive: Regular rate & rhythm. negative: Tachycardia Abdomen: positive: No distention, Tenderness (He has occasional left sided tenderness but this is not consistent). negative: Guarding, Rebound Back: negative: CVA tenderness (R), CVA tenderness (L) Extremities: positive: No pedal edema, Other (Right BKA.) - Lab Results Fish Bones: 10/08/20 06:30 10/08/20 06:30 Other Labs: Lab Results x24hrs 10/08/20 10/08/20 10/08/20 Range/Units 06:30 06:30 06:30 WBC 7.0 (4.8-10.8) x10^3/uL RBC 3.09 L (4.70-6.10) 10^6/uL Hgb 9.9 L (14.0-18.0) g/dL Hct 30.1 L (42.0-52.0) % MCV 97.4 H (80.0-94.0) fL MCH 32.0 H (27.0-31.0) pg MCHC 32.9 (32.0-36.0) g/dL RDW 13.4 (12.0-15.0) % Plt Count 133 (130-450) 10^3/uL MPV 9.5 (7.4-11.4) fL Neut # (Auto) 4.8 (1.5-6.6) 10^3/uL Lymph # (Auto) 1.1 L (1.5-3.5) 10^3/uL [place] # (Auto) 0.7 (0.0-1.0) 10^3/uL Eos # (Auto) 0.2 (0.0-0.7) 10^3/uL Baso # (Auto) 0.1 (0.0-0.1) 10^3/uL Absolute Nucleated RBC 0.00 x10^3/uL Nucleated RBC % 0.0 /100WBC Sodium 137 (135-145) mmol/L Potassium 4.1 (3.5-5.0) mmol/L Chloride 103 (101-111) mmol/L Carbon Dioxide 24 (21-32) mmol/L Anion Gap 10.0 (6-13) BUN 20 (6-20) mg/dL Creatinine 1.1 (0.6-1.2) mg/dL Estimated GFR (MDRD) 65 L (>89) Glucose 65 L (70-100) mg/dL Calcium 9.2 (8.5-10.3) mg/dL Magnesium 2.1 (1.7-2.8) mg/dL Total Creatine Kinase 53 (22-269) IU/L Last Dose Date 10/07/20 Last Dose Time 1600 Vancomycin Trough 21.3 H (10.0-20.0) ug/mL ABX Reporting Has patient been on IV antibiotics over the past 48 hours?: Yes Sepsis Event Note (H) - Evaluation Current Stage of Sepsis: Resolved Possible source of Sepsis: positive: Genitourinary - Sepsis Criteria Sepsis Criteria: Recorded Temperature greater than 38.3C or Less than 36C, Recorded Respiratory Rate greater than 20, MICROFILMING 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 I spoke with infectious disease yesterday who recommended either ampicillin or daptomycin on outpatient basis. Given the patient will need to be going to the [facility] clinic for IV antibiotics, we will discharge him on daptom ycin daily to complete a total of 2 weeks of therapy since his most recent negative blood cultures. We will keep him on ampicillin 2 g IV every 4 hours while he remains hospitalized as we cannot set up the outpatient IV antibiotics until Saturday. He will need a PICC line placed as well prior to discharge. His last day of treatment will be October 19. We did obtain a baseline CK which is within normal limits. He will need weekly ESR, CRP, CK while he is on daptomycin. (2) UTI (urinary tract infection) Impression: Urine culture grew Enterococcus which was a source of his bacteremia. We will place him on ampicillin IV today and discharged on daptomycin for the gram- positive bacteremia as mentioned above. (3) Left sided abdominal pain Impression: He continues to complain of left-sided abdominal pain which she states has been present for quite some time now and prior to this hospitalization. We did do a CT initially when there was concern for sepsis due to UTI which did show bilateral nephrolithiasis and cholelithiasis with mild pericholecystic fluid. This pain is only present on palpation. I do not have a clear admission for this except for potentially the nephrolithiasis. He does report constipation which may be a contributing factor. We will give him a dose of milk of magnesia today and will obtain an office ultrasound given there was mild pericholecystic fluid although I do not think this would explain his tenderness. We will increase his oxycodone 7.5 mg. (4) Urinary retention with incomplete bladder emptying Impression: A Mahan catheter has been placed and he will need outpatient follow-up with his primary care provider and urology. Continue Flomax. (5) Hx of coronary artery disease Impression: Stable. We are continuing his home medications. (6) Insulin dependent diabetes mellitus Impression: He was hypoglycemic this morning with a blood glucose of 64. I have decreased his evening Lantus once again to 75 units and I decreased his morning Lantus to 100 units. We will continue to monitor his blood glucose and continue a carb controlled diet. (7) Sepsis Impression: This was secondary to the Enterococcus bacteremia and has since resolved. Qualifiers: Sepsis type: sepsis due to unspecified organism Sepsis acute organ dysfunction status: with acute organ dysfunction Severe sepsis acute organ dysfunction type: encephalopathy (8) Acute kidney injury superimposed on chronic kidney disease Impression: Acute kidney injury was likely prerenal in injury and this resolved with IV fluids. His renal functions remain stable on his home diuretics. (9) HCAP (healthcare-associated pneumonia) Impression: There was concern initially for HCAP but clinically this did not appear to be the cause of his sepsis and we have discontinued cefepime.
[2020-10-08] MEDS: LOSARTAN 50 MG TABLET PO SCH (14:20)
[2020-10-08] MEDS: AMPICILLIN 2 GM in SODIUM CHLORIDE 0.9% MINIBAG 100 ML IV SCH ×3 (14:23→20:40)
[2020-10-08] MEDS ORDERED: MAGNESIUM HYDROXIDE 2,400 MG/30 ML UDC PO STA (16:58)
[2020-10-08] MEDS: DULoxetine 30 MG CAPSULE PO SCH (20:39)
[2020-10-08] MEDS: ATORVASTATIN 10 MG TABLET PO SCH (20:39)
[2020-10-09] MEDS: oxyCODONE 5 MG TABLET PO PRN ×5 (00:14→19:56)
[2020-10-09] MEDS: SODIUM CHLORIDE FLUSH 0.9% 10 ML SYRINGE IVP SCH ×3 (00:23→19:56)
[2020-10-09] MEDS: AMPICILLIN 2 GM in SODIUM CHLORIDE 0.9% MINIBAG 100 ML IV SCH ×6 (00:23→21:03)
[2020-10-09] MEDS: ZINC OXIDE 20% OINT 30 GM TUBE TOP PRN (02:00)
[2020-10-09] MEDS: diphenhydrAMINE 25 MG CAPSULE PO PRN ×4 (05:12→19:56)
[2020-10-09 05:24] LABS: BASOPHILS % (AUTO) 0.6 %; EOSINOPHILS # (AUTO) 0.2 10^3/uL (0.0-0.7); EOSINOPHILS % (AUTO) 2.3 %; HCT - HEMATOCRIT 27.6 % (42.0-52.0); LYMPHOCYTES # (AUTO) 1.4 10^3/uL (1.5-3.5); LYMPHOCYTES % (AUTO) 19.9 %; MEAN CORPUSCULAR HEMOGLOBIN 31.8 pg (27.0-31.0); MEAN CORPUSCULAR HGB CONC 32.6 g/dL (32.0-36.0); MEAN CORPUSCULAR VOLUME 97.5 fL (80.0-94.0); MEAN PLATELET VOLUME 9.4 fL (7.4-11.4); MONOCYTES # (AUTO) 0.7 10^3/uL (0.0-1.0); MONOCYTES % (AUTO) 9.2 %; NEUTROPHILS # (AUTO) 4.8 10^3/uL (1.5-6.6); NEUTROPHILS % (AUTO) 66.9 %; PLT - PLATELET COUNT 134 10^3/uL (130-450); RED BLOOD COUNT 2.83 10^6/uL (4.70-6.10); RED CELL DISTRIBUTION WIDTH 13.4 % (12.0-15.0); WHITE BLOOD COUNT 7.1 x10^3/uL (4.8-10.8)
[2020-10-09 05:37] LABS: ALBUMIN 2.5 g/dL (3.2-5.5); BILIRUBIN,DIRECT 0.1 mg/dL (0.1-0.5); BILIRUBIN,TOTAL 0.7 mg/dL (0.2-1.0); CALCIUM 8.8 mg/dL (8.5-10.3); CREATININE 1.2 mg/dL (0.6-1.2); MAGNESIUM 1.9 mg/dL (1.7-2.8); POTASSIUM 5.3 mmol/L (3.5-5.0); TOTAL PROTEIN 6.9 g/dL (6.7-8.2)
--- NOTE | 2020-10-09 08:05 | PROVIDER PROGRESS NOTE ---
Subjective - Prog Note Date Prog Note Date: 10/09/20 - Subjective Subjective: He reports having a large bowel movement yesterday. He still complains of intermittent left-sided abdominal pain. He states this occasionally radiates down to his lower abdomen and across to his right side. He has been eating without difficulty. No nausea or vomiting. Current Medications - Current Medications Current Medications: Active Medications Acetaminophen (Acetaminophen 325 Mg Tablet) 650 mg PO Q4HR PRN PRN Reason: Pain or Fever > 38C (100.4F) Last Admin: 10/07/20 14:09 Dose: 650 mg Documented by: Aspirin (Aspirin Ec 81 Mg Tablet) 81 mg PO DAILY [facility] Last Admin: 10/09/20 09:51 Dose: 81 mg Documented by: Atorvastatin Calcium (Atorvastatin 10 Mg Tablet) 40 mg PO QPM [facility] Last Admin: 10/08/20 20:39 Dose: 40 mg Documented by: Carvedilol (Carvedilol 12.5 Mg Tablet) 25 mg PO BID [facility] Last Admin: 10/09/20 09:53 Dose: 25 mg Documented by: Diphenhydramine HCl (Diphenhydramine 25 Mg Capsule) 25 mg PO Q4HR PRN PRN Reason: Allergy Symptoms Last Admin: 10/09/20 09:53 Dose: 25 mg Documented by: Docusate Sodium (Docusate Sodium 250 Mg Capsule) 250 - 500 mg PO DAILY [facility] Last Admin: 10/09/20 09:55 Dose: Not Given Documented by: Duloxetine HCl (Duloxetine 30 Mg Capsule) 60 mg PO [facility] Last Admin: 10/08/20 20:39 Dose: 60 mg Documented by: Furosemide (Furosemide 40 Mg Tablet) 40 mg PO BID [facility] Last Admin: 10/09/20 09:51 Dose: 40 mg Documented by: Gabapentin (Gabapentin 300 Mg Capsule) 600 mg PO HS [facility] Last Admin: 10/08/20 20:40 Dose: 600 mg Documented by: Gabapentin (Gabapentin 300 Mg Capsule) 300 mg PO 0800,1500 [facility] Last Admin: 10/09/20 09:54 Dose: 300 mg Documented by: Heparin Sodium (Porcine) (Heparin 5,000 Unit/Ml Vial) 5,000 unit SUBQ BID [facility] Last Admin: 10/09/20 10:01 Dose: 5,000 unit Documented by: Ampicillin Sodium 2 gm/ Sodium (Chloride) 100 mls @ 100 mls/hr IV Q4HR [facility] Last Admin: 10/09/20 09:56 Dose: 100 mls/hr Documented by: Insulin Aspart (Insulin Aspart 300 Unit/3 Ml Pen) 1 - 9 unit SUBQ 0800,1200,1700,2100 [facility]; Protocol Last Admin: 10/09/20 09:55 Dose: Not Given Documented by: Insulin Glargine (Insulin Glargine 300 Unit/3 Ml Pen) 100 unit SUBQ DAILY [facility] Last Admin: 10/09/20 10:02 Dose: 100 unit Documented by: Insulin Glargine (Insulin Glargine 300 Unit/3 Ml Pen) 75 unit SUBQ QPM [facility] Last Admin: 10/08/20 20:40 Dose: 75 unit Documented by: Losartan Potassium (Losartan 50 Mg Tablet) 50 mg PO DAILY [facility] Last Admin: 10/09/20 09:52 Dose: 50 mg Documented by: Multi-Ingredient Ointment (Zinc Oxide 20% Oint 30 Gm Tube) 1 applic TOP PRN PRN PRN Reason: Skin Care Last Admin: 10/09/20 02:00 Dose: 1 applic Documented by: Nystatin (Nystatin Powder 15 Gm) 1 applic TOP BID [facility] Ondansetron HCl (Ondansetron 4 Mg/2 Ml Vial) 4 mg IVP Q6HR PRN PRN Reason: Nausea / Vomiting Oxycodone HCl (Oxycodone 5 Mg Tablet) 7.5 mg PO Q4HR PRN PRN Reason: PAIN Last Admin: 10/09/20 09:50 Dose: 7.5 mg Documented by: Polyethylene Glycol (Polyethylene Glycol 3350 17 Gm Packet) 17 gm PO DAILY [facility] Last Admin: 10/09/20 09:55 Dose: Not Given Documented by: Multivit/Folic Acid/Iron ( Vitamin Tablet) 1 tab PO DAILYWM [facility] Last Admin: 10/09/20 09:51 Dose: 1 tab Documented by: Sodium Chloride (Sodium Chloride Flush 0.9% 10 Ml Syringe) 10 ml IVP PRN PRN PRN Reason: NEEDED PER PROVIDER ORDERS Last Admin: 10/08/20 07:48 Dose: 10 ml Documented by: Sodium Chloride (Sodium Chloride Flush 0.9% 10 Ml Syringe) 10 ml IVP 0100,0900,1700 [facility] Last Admin: 10/09/20 04:58 Dose: 10 ml Documented by: Sodium Chloride (Sodium Chloride Flush 0.9% 10 Ml Syringe) 20 ml IVP PRN PRN PRN Reason: After Blood Draw Tamsulosin HCl (Tamsulosin 0.4 Mg Capsule) 0.4 mg PO DAILY [facility] Last Admin: 10/09/20 09:53 Dose: 0.4 mg Documented by: Thiamine HCl (Thiamine 100 Mg Tablet) 100 mg PO DAILY [facility] Last Admin: 10/09/20 09:52 Dose: 100 mg Documented by: Loratadine 10 mg PO DAILY 11/07/12 Furosemide 40 mg PO BID 12/30/17 Gabapentin [Neurontin] 300 mg PO TID 06/01/18 Losartan [Cozaar] 50 mg PO DAILY 06/01/18 Insulin Glargine [Lantus Solostar] 110 unit SUBQ BID 10/02/20 Ascorbic Acid [Vitamin C] 500 mg PO DAILY 10/05/20 Duloxetine HCl [Cymbalta] 60 mg PO HS 10/05/20 Multivitamin 1 tab PO 10/05/20 Objective - Vital Signs/Intake & Output Reviewed Vital Signs: Yes Vital Signs: Vital Signs x48h Temp Pulse Resp BP Pulse Ox 10/09/20 04:53 36.4 C L 67 18 104/52 L 94 Intake & Output: Intake & Output 10/06/20 10/07/20 10/08/20 10/09/20 23:59 23:59 23:59 23:59 Intake Total 1558 3350 2460 200 Output Total 1876 9291 4975 1600 [facility] -[phone] - Objective General Appearance: positive: No acute distress, Alert Eyes Bilateral: positive: Conjunctivae nml ENT: positive: ENT inspection nml Neck: positive: Nml inspection Respiratory: positive: No respiratory distress. negative: Wheezes, Rales Cardiovascular: positive: Regular rate & rhythm, No murmur Abdomen: positive: Nml bowel sounds, No distention, Tenderness (Occasional tenderness over the left side of his abdomen. Once again, this is not consistent and palpation of the same area does not always produce pain.). negative: Guarding, Rebound Skin: positive: Warm, Dry - Lab Results Fish Bones: 10/09/20 05:02 10/09/20 04:47 Other Labs: Lab Results x24hrs 10/09/20 10/09/20 Range/Units 05:02 04:47 WBC 7.1 (4.8-10.8) x10^3/uL RBC 2.83 L (4.70-6.10) 10^6/uL Hgb 9.0 L (14.0-18.0) g/dL Hct 27.6 L (42.0-52.0) % MCV 97.5 H (80.0-94.0) fL MCH 31.8 H (27.0-31.0) pg MCHC 32.6 (32.0-36.0) g/dL RDW 13.4 (12.0-15.0) % Plt Count 134 (130-450) 10^3/uL MPV 9.4 (7.4-11.4) fL Neut # (Auto) 4.8 (1.5-6.6) 10^3/uL Lymph # (Auto) 1.4 L (1.5-3.5) 10^3/uL [place] # (Auto) 0.7 (0.0-1.0) 10^3/uL Eos # (Auto) 0.2 (0.0-0.7) 10^3/uL Baso # (Auto) 0.0 (0.0-0.1) 10^3/uL Absolute Nucleated RBC 0.00 x10^3/uL Nucleated RBC % 0.0 /100WBC Sodium 135 (135-145) mmol/L Potassium 5.3 H (3.5-5.0) mmol/L Chloride 102 (101-111) mmol/L Carbon Dioxide 24 (21-32) mmol/L Anion Gap 9.0 (6-13) BUN 20 (6-20) mg/dL Creatinine 1.2 (0.6-1.2) mg/dL Estimated GFR (MDRD) 59 L (>89) Glucose 115 H (70-100) mg/dL Calcium 8.8 (8.5-10.3) mg/dL Magnesium 1.9 (1.7-2.8) mg/dL Total Bilirubin 0.7 (0.2-1.0) mg/dL Direct Bilirubin 0.1 (0.1-0.5) mg/dL AST 44 H (10-42) IU/L ALT 32 (10-60) IU/L Alkaline Phosphatase 110 (42-121) IU/L Total Protein 6.9 (6.7-8.2) g/dL Albumin 2.5 L (3.2-5.5) g/dL Globulin 4.4 H (2.1-4.2) g/dL ABX Reporting Has patient been on IV antibiotics over the past 48 hours?: Yes Sepsis Event Note (H) - Evaluation Current Stage of Sepsis: Resolved Possible source of Sepsis: positive: Genitourinary - Sepsis Criteria Sepsis Criteria: Recorded Temperature greater than 38.3C or Less than 36C, Recorded Respiratory Rate greater than 20, CERTIFIED MEDICAL CODING SPECIALIST: altered consciousness (unrelated to primary neuro pathology), Metabolic: lactate > 2 mmol/L Assessment/Plan - Problem List (1) Gram-positive bacteremia Impression: Blood cultures grew Enterococcus and repeat have been negative for 48 hours. He will need ongoing IV antibiotics until October 19. He has been on ampicillin since yesterday. The plan will be either discharge home on daptomycin where he will then be going to the [facility] clinic on a daily basis. Another option is to go to a fpc facility which he prefers. Social work will meet with him to discuss potential options. He will need a weekly ESR, CRP, CK. Last day of treatment is October 19. Plan is for PICC line placement tomorrow. (2) UTI (urinary tract infection) Impression: Urine culture grew Enterococcus which is a source of his bacteremia. Plan as mentioned above. (3) Left sided abdominal pain Impression: The etiology of this pain is not clear. We reviewed his CT again which showed just bilateral nephrolithiasis although the stones were quite small and I do not suspect are causing his pain. We did order an ultrasound for further evaluation given CT showed mild pericholecystic fluid although low suspicion for cholecystitis and this would not explain his left-sided pain. I have continued to reassure him that imaging has not revealed any acute findings. We will continue with oxycodone as needed. (4) Urinary retention with incomplete bladder emptying Impression: A Mahan catheter has been placed and he will need outpatient follow-up with his primary care provider and urology. Continue Flomax. (5) Hx of coronary artery disease Impression: Stable. We are continuing his home medications. (6) Insulin dependent diabetes mellitus Impression: He has had no further episodes of hypoglycemia since we decreased his Lantus. We will continue 100 units of Lantus in the morning and 75 units in the evening. Carb controlled diet. (7) Sepsis Impression: Resolved. Qualifiers: Sepsis type: sepsis due to unspecified organism Sepsis acute organ dysfunction status: with acute organ dysfunction Severe sepsis acute organ dysfunction type: encephalopathy (8) Acute kidney injury superimposed on chronic kidney disease Impression: Resolved. (9) HCAP (healthcare-associated pneumonia) Impression: There was initial concern for HCAP but this is not felt to be less likely. We are no longer treating for HCAP and cefepime has been discontinued.
[2020-10-09] MEDS: FUROSEMIDE 40 MG TABLET PO SCH ×2 (09:51→21:06)
[2020-10-09] MEDS: PRENATAL VITAMIN TABLET PO SCH (09:51)
[2020-10-09] MEDS: ASPIRIN EC 81 MG TABLET PO SCH (09:51)
[2020-10-09] MEDS: THIAMINE 100 MG TABLET PO SCH (09:52)
[2020-10-09] MEDS: LOSARTAN 50 MG TABLET PO SCH (09:52)
[2020-10-09] MEDS: TAMSULOSIN 0.4 MG CAPSULE PO SCH (09:53)
[2020-10-09] MEDS: carvediloL 12.5 MG TABLET PO SCH ×2 (09:53→21:06)
[2020-10-09] MEDS: GABAPENTIN 300 MG CAPSULE PO SCH ×3 (09:54→21:06)
[2020-10-09] MEDS: polyethylene glycoL 3350 17 GM PACKET PO SCH (09:55)
[2020-10-09] MEDS: INSULIN ASPART 300 UNIT/3 ML PEN SUBQ SCH ×4 (09:55→21:07)
[2020-10-09] MEDS: DOCUSATE SODIUM 250 MG CAPSULE PO SCH (09:55)
[2020-10-09] MEDS: HEPARIN 5,000 UNIT/ML VIAL SUBQ SCH ×2 (10:01→20:50)
[2020-10-09] MEDS: INSULIN GLARGINE 300 UNIT/3 ML PEN SUBQ SCH ×2 (10:02→21:52)
[2020-10-09 12:21] LABS: CALCIUM 8.7 mg/dL (8.5-10.3); CREATININE 1.2 mg/dL (0.6-1.2); POTASSIUM 4.7 mmol/L (3.5-5.0)
--- NOTE | 2020-10-09 12:44 | Ultrasound Report ---
PROCEDURE: Abdomen Complete INDICATIONS: Abdominal pain. Cholelithiasis. TECHNIQUE: Real-time scanning was performed of the abdominal and retroperitoneal organs, with image documentatio n. COMPARISON: None. FINDINGS: This study is limited by body habitus and bowel gas. Liver: The liver demonstrates prominent size. The liver demonstrates a lobulated contour. No corey l iver masses are seen on these images. Gallbladder: The gallbladder demonstrates small mobile stones. The gallbladder wall is thickened at 6 to 7 mm. There is no specific pericholecystic fluid. The sonographic Samayoa's sign is negative. Biliary ducts: Intrahepatic bile ducts are non-dilated. Extrahepatic bile duct caliber measures 8 m m. Normal is 6-7 mm or less in diameter, or 10 mm or less post-cholecystectomy. Pancreas: Visualized portions of the pancreas are sonographically normal. Spleen: The spleen is mildly enlarged measuring 13.8 x 7.6 x 13.7 cm, with a calculated volume of 752 cc. Kidneys: Kidneys are normal in size and echotexture. Right kidney measures 15.2 cm long; left kidne y measures 14.2 cm long. No hydronephrosis is seen. No solid masses. 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 There is a nonobstructing right-sided kidney stone superiorly that measures up to 1.5 cm. A nonobstructing left mid kidney calcification is seen that measures up to 7 mm. Several left kidney cysts are seen, with the largest measuring up to 3.7 cm. There is a septated cyst also se en that measures up to 2.3 cm. Aorta: Proximal aorta is minimally aneurysmal at 3.1 cm. The mid and distal aorta measure within nor mal limits. Iliacs: Proximal common iliac arteries are normal in caliber at less than 2.5 cm. IVC: Intrahepatic inferior vena cava is patent. Miscellaneous: No free abdominal fluid. IMPRESSION: Mobile gallstones are seen and there is collateral thickening. No additional sonographic signs of cho lecystitis are seen. Minimal common bile duct dilatation is seen for age. Enlarged, coarse appearing liver. Mild splenomegaly. Bilateral nonobstructing kidney stones are seen. Several left renal cysts are seen, including a septated cyst. Reviewed by: Luigi Dockery MD on 10/09/2020 11:43 AM AKDT Approved by: Luigi Dockery MD on 10/09/2020 11:43 AM DARRIAN Station ID: [id number]
[2020-10-09] MEDS: NYSTATIN POWDER 15 GM TOP SCH ×2 (12:49→21:07)
[2020-10-09] MEDS: ATORVASTATIN 10 MG TABLET PO SCH (21:06)
[2020-10-09] MEDS: DULoxetine 30 MG CAPSULE PO SCH (21:06)
[2020-10-09] MEDS ORDERED: INSULIN GLARGINE 300 UNIT/3 ML PEN SUBQ SCH (23:00)
[2020-10-10] MEDS: AMPICILLIN 2 GM in SODIUM CHLORIDE 0.9% MINIBAG 100 ML IV SCH ×6 (00:45→21:00)
[2020-10-10] MEDS: SODIUM CHLORIDE FLUSH 0.9% 10 ML SYRINGE IVP SCH ×3 (00:46→16:59)
[2020-10-10] MEDS: SODIUM CHLORIDE FLUSH 0.9% 10 ML SYRINGE IVP PRN ×2 (04:08→14:34)
[2020-10-10 04:13] LABS: BASOPHILS # (AUTO) 0.1 10^3/uL (0.0-0.1); BASOPHILS % (AUTO) 1.4 %; EOSINOPHILS # (AUTO) 0.2 10^3/uL (0.0-0.7); EOSINOPHILS % (AUTO) 3.8 %; HCT - HEMATOCRIT 28.7 % (42.0-52.0); HGB - HEMOGLOBIN 9.3 g/dL (14.0-18.0); LYMPHOCYTES # (AUTO) 1.6 10^3/uL (1.5-3.5); LYMPHOCYTES % (AUTO) 27.1 %; MEAN CORPUSCULAR HGB CONC 32.4 g/dL (32.0-36.0); MEAN CORPUSCULAR VOLUME 98.6 fL (80.0-94.0); MEAN PLATELET VOLUME 8.8 fL (7.4-11.4); MONOCYTES # (AUTO) 0.6 10^3/uL (0.0-1.0); MONOCYTES % (AUTO) 10.1 %; NEUTROPHILS # (AUTO) 3.2 10^3/uL (1.5-6.6); NEUTROPHILS % (AUTO) 54.7 %; PLT - PLATELET COUNT 154 10^3/uL (130-450); RED BLOOD COUNT 2.91 10^6/uL (4.70-6.10); RED CELL DISTRIBUTION WIDTH 13.2 % (12.0-15.0); WHITE BLOOD COUNT 5.8 x10^3/uL (4.8-10.8)
[2020-10-10 04:20] LABS: CREATININE 1.5 mg/dL (0.6-1.2); MAGNESIUM 2.2 mg/dL (1.7-2.8); POTASSIUM 4.9 mmol/L (3.5-5.0)
[2020-10-10] MEDS ORDERED: DEXTROSE 5% 1,000 ML IV SCH (05:00)
[2020-10-10] MEDS: INSULIN ASPART 300 UNIT/3 ML PEN SUBQ SCH ×4 (07:14→21:06)
[2020-10-10] MEDS: polyethylene glycoL 3350 17 GM PACKET PO SCH (08:29)
[2020-10-10] MEDS: DOCUSATE SODIUM 250 MG CAPSULE PO SCH (08:30)
[2020-10-10] MEDS: carvediloL 12.5 MG TABLET PO SCH ×2 (08:30→21:00)
[2020-10-10] MEDS: LOSARTAN 50 MG TABLET PO SCH (08:31)
[2020-10-10] MEDS: ASPIRIN EC 81 MG TABLET PO SCH (08:31)
[2020-10-10] MEDS: PRENATAL VITAMIN TABLET PO SCH (08:31)
[2020-10-10] MEDS: THIAMINE 100 MG TABLET PO SCH (08:31)
[2020-10-10] MEDS: GABAPENTIN 300 MG CAPSULE PO SCH ×3 (08:31→20:59)
[2020-10-10] MEDS: TAMSULOSIN 0.4 MG CAPSULE PO SCH (08:32)
[2020-10-10] MEDS: HEPARIN 5,000 UNIT/ML VIAL SUBQ SCH ×2 (08:33→21:00)
[2020-10-10] MEDS: FUROSEMIDE 40 MG TABLET PO SCH (08:33)
[2020-10-10] MEDS ORDERED: INSULIN GLARGINE 300 UNIT/3 ML PEN SUBQ SCH (09:00)
--- NOTE | 2020-10-10 09:55 | XRAY Report ---
PROCEDURE: Chest for Line Placement INDICATIONS: placement of PICC line TECHNIQUE: One view of the chest was acquired. COMPARISON: 10/07/2020 and 10/03/2020. FINDINGS: Surgical changes and devices: Right IJ central venous line with tip projecting over the mid SVC is st able. Left-sided PICC line has been placed which ejects over the mid to distal SVC. Lungs and pleura: No pleural effusions or pneumothorax. Interstitial prominence is stable compared t o prior exams. Mediastinum: Mediastinal contours appear normal. Heart size is normal. Bones and chest wall: No suspicious bony lesions. Overlying soft tissues appear unremarkable. IMPRESSION: Tip of PICC line projects over the mid to distal SVC. Reviewed by: Viki Núñez MD, PhD on 10/10/2020 9:54 AM PDT Approved by: Viki Núñez MD, PhD on 10/10/2020 9:54 AM PDT Station ID: [id number]
[2020-10-10] MEDS: NYSTATIN POWDER 15 GM TOP SCH ×2 (10:11→21:06)
--- NOTE | 2020-10-10 10:13 | ANESTHESIA PROCEDURE NOTE ---
Anesth Central Line Template - Central Line Central Line Preparation: Consent Obtained, Time out completed, Ultrasound used, Sterile prep and drape Central line location: Left Basilic Central line type: PICC Double Lumen Central line catheter tip site resides: Superior vena cava (SVC) Central line aftercare: Secured, Placement confirmed, No pneumothorax, No complications, Pt tolerated well Other Info/Details: Full sterile drape, gown, gloves and mask utilized. After timeout, Left basilic vein imaged using ultrasound. Vein was accessed and wire advanced with ease. A 5FR double lumen PICC line trimmed to 48cm was inserted. Tip tracker showed tip towards heart, p-wave did not change. Line was advanced until 0cm were exposed. Both ports aspirate blood and flush with ease. Line secured. All wires were removed and accounted for. Chest xray shows tip in the mid to distal SVC. Patient tolerated well.
[2020-10-10] MEDS: ACETAMINOPHEN 325 MG TABLET PO PRN (10:15)
[2020-10-10] MEDS: oxyCODONE 5 MG TABLET PO PRN (10:16)
[2020-10-10] MEDS: ZINC OXIDE 20% OINT 30 GM TUBE TOP PRN (10:16)
[2020-10-10] MEDS: diphenhydrAMINE 25 MG CAPSULE PO PRN (13:14)
--- NOTE | 2020-10-10 16:54 | PROVIDER PROGRESS NOTE ---
Subjective - Prog Note Date Prog Note Date: 10/10/20 - Subjective Subjective: Still complains of occasional left side abdominal pain. He is concerned his blood glucose has been low at times. Current Medications - Current Medications Current Medications: Active Medications Acetaminophen (Acetaminophen 325 Mg Tablet) 650 mg PO Q4HR PRN PRN Reason: Pain or Fever > 38C (100.4F) Last Admin: 10/10/20 10:15 Dose: 650 mg Documented by: Aspirin (Aspirin Ec 81 Mg Tablet) 81 mg PO DAILY [facility] Last Admin: 10/10/20 08:31 Dose: 81 mg Documented by: Atorvastatin Calcium (Atorvastatin 10 Mg Tablet) 40 mg PO QPM [facility] Last Admin: 10/09/20 21:06 Dose: 40 mg Documented by: Carvedilol (Carvedilol 12.5 Mg Tablet) 25 mg PO BID [facility] Last Admin: 10/10/20 08:30 Dose: 25 mg Documented by: Diphenhydramine HCl (Diphenhydramine 25 Mg Capsule) 25 mg PO Q4HR PRN PRN Reason: Allergy Symptoms Last Admin: 10/10/20 13:14 Dose: 25 mg Documented by: Docusate Sodium (Docusate Sodium 250 Mg Capsule) 250 - 500 mg PO DAILY [facility] Last Admin: 10/10/20 08:30 Dose: 250 mg Documented by: Duloxetine HCl (Duloxetine 30 Mg Capsule) 60 mg PO HS [facility] Last Admin: 10/09/20 21:06 Dose: 60 mg Documented by: Furosemide (Furosemide 40 Mg Tablet) 40 mg PO DAILY [facility] Last Admin: 10/10/20 08:33 Dose: 40 mg Documented by: Gabapentin (Gabapentin 300 Mg Capsule) 600 mg PO HS [facility] Last Admin: 10/09/20 21:06 Dose: 600 mg Documented by: Gabapentin (Gabapentin 300 Mg Capsule) 300 mg PO 0800,1500 [facility] Last Admin: 10/10/20 14:31 Dose: 300 mg Documented by: Heparin Sodium (Porcine) (Heparin 5,000 Unit/Ml Vial) 5,000 unit SUBQ BID [facility] Last Admin: 10/10/20 08:33 Dose: 5,000 unit Documented by: Ampicillin Sodium 2 gm/ Sodium (Chloride) 100 mls @ 100 mls/hr IV Q4HR [facility] Last Infusion: 10/10/20 14:10 Dose: Infused Documented by: Insulin Aspart (Insulin Aspart 300 Unit/3 Ml Pen) 1 - 9 unit SUBQ 0800,1200,1700,2100 [facility]; Protocol Last Admin: 10/10/20 12:02 Dose: 1 unit Documented by: Insulin Glargine (Insulin Glargine 300 Unit/3 Ml Pen) 80 unit SUBQ DAILY [facility] Last Admin: 10/10/20 08:46 Dose: 80 unit Documented by: Losartan Potassium (Losartan 50 Mg Tablet) 50 mg PO DAILY [facility] Last Admin: 10/10/20 08:31 Dose: 50 mg Documented by: Multi-Ingredient Ointment (Zinc Oxide 20% Oint 30 Gm Tube) 1 applic TOP PRN PRN PRN Reason: Skin Care Last Admin: 10/10/20 10:16 Dose: 1 applic Documented by: Nystatin (Nystatin Powder 15 Gm) 1 applic TOP BID [facility] Last Admin: 10/10/20 10:11 Dose: 1 applic Documented by: Ondansetron HCl (Ondansetron 4 Mg/2 Ml Vial) 4 mg IVP Q6HR PRN PRN Reason: Nausea / Vomiting Oxycodone HCl (Oxycodone 5 Mg Tablet) 7.5 mg PO Q4HR PRN PRN Reason: PAIN Last Admin: 10/10/20 10:16 Dose: 7.5 mg Documented by: Polyethylene Glycol (Polyethylene Glycol 3350 17 Gm Packet) 17 gm PO DAILY [facility] Last Admin: 10/10/20 08:29 Dose: 17 gm Documented by: Multivit/Folic Acid/Iron ( Vitamin Tablet) 1 tab PO DAILYWM [facility] Last Admin: 10/10/20 08:31 Dose: 1 tab Documented by: Sodium Chloride (Sodium Chloride Flush 0.9% 10 Ml Syringe) 10 ml IVP PRN PRN PRN Reason: NEEDED PER PROVIDER ORDERS Last Admin: 10/10/20 14:34 Dose: 10 ml Documented by: Sodium Chloride (Sodium Chloride Flush 0.9% 10 Ml Syringe) 10 ml IVP 0100,0900,1700 [facility] Last Admin: 10/10/20 08:45 Dose: Not Given Documented by: Sodium Chloride (Sodium Chloride Flush 0.9% 10 Ml Syringe) 20 ml IVP PRN PRN PRN Reason: After Blood Draw Tamsulosin HCl (Tamsulosin 0.4 Mg Capsule) 0.4 mg PO DAILY [facility] Last Admin: 10/10/20 08:32 Dose: 0.4 mg Documented by: Thiamine HCl (Thiamine 100 Mg Tablet) 100 mg PO DAILY [facility] Last Admin: 10/10/20 08:31 Dose: 100 mg Documented by: Loratadine 10 mg PO DAILY 11/07/12 Furosemide 40 mg PO BID 12/30/17 Gabapentin [Neurontin] 300 mg PO TID 06/01/18 Losartan [Cozaar] 50 mg PO DAILY 06/01/18 Insulin Glargine [Lantus Solostar] 110 unit SUBQ BID 10/02/20 Ascorbic Acid [Vitamin C] 500 mg PO DAILY 10/05/20 Duloxetine HCl [Cymbalta] 60 mg PO HS 10/05/20 Multivitamin 1 tab PO HS 10/05/20 Objective - Vital Signs/Intake & Output Reviewed Vital Signs: Yes Vital Signs: Vital Signs x48h Temp Pulse Resp BP BP Pulse Ox 10/10/20 15:30 36.5 C 71 18 107/53 L 100 10/10/20 11:58 36.8 C 70 20 136/80 H 96 Intake & Output: Intake & Output 10/07/20 10/08/20 10/09/20 10/10/20 23:59 23:59 23:59 23:59 Intake Total 3350 2460 2210 2003.88 Output Total 5616 1413 7493 5568 [facility]1525 -[phone] -[id number] -2696.12 - Objective General Appearance: positive: No acute distress, Alert Eyes Bilateral: positive: Normal inspection ENT: positive: ENT inspection nml Neck: positive: Nml inspection Respiratory: positive: No respiratory distress Abdomen: positive: Nml bowel sounds, No distention, Tenderness (Occasional left- sided tenderness.) Skin: positive: Warm, Dry - Lab Results Fish Bones: 10/10/20 04:05 10/10/20 04:05 Other Labs: Lab Results x24hrs 10/10/20 10/10/20 Range/Units 04:05 04:05 WBC 5.8 (4.8-10.8) x10^3/uL RBC 2.91 L (4.70-6.10) 10^6/uL Hgb 9.3 L (14.0-18.0) g/dL Hct 28.7 L (42.0-52.0) % MCV 98.6 H (80.0-94.0) fL MCH 32.0 H (27.0-31.0) pg MCHC 32.4 (32.0-36.0) g/dL RDW 13.2 (12.0-15.0) % Plt Count 154 (130-450) 10^3/uL MPV 8.8 (7.4-11.4) fL Neut # (Auto) 3.2 (1.5-6.6) 10^3/uL Lymph # (Auto) 1.6 (1.5-3.5) 10^3/uL [place] # (Auto) 0.6 (0.0-1.0) 10^3/uL Eos # (Auto) 0.2 (0.0-0.7) 10^3/uL Baso # (Auto) 0.1 (0.0-0.1) 10^3/uL Absolute Nucleated RBC 0.00 x10^3/uL Nucleated RBC % 0.0 /100WBC Sodium 134 L (135-145) mmol/L Potassium 4.9 (3.5-5.0) mmol/L Chloride 97 L (101-111) mmol/L Carbon Dioxide 29 (21-32) mmol/L Anion Gap 8.0 (6-13) BUN 21 H (6-20) mg/dL Creatinine 1.5 H (0.6-1.2) mg/dL Estimated GFR (MDRD) 46 L (>89) Glucose 116 H (70-100) mg/dL Calcium 9.0 (8.5-10.3) mg/dL Magnesium 2.2 (1.7-2.8) mg/dL ABX Reporting Has patient been on IV antibiotics over the past 48 hours?: Yes Sepsis Event Note (H) - Evaluation Current Stage of Sepsis: Resolved Possible source of Sepsis: positive: Genitourinary - Sepsis Criteria Sepsis Criteria: Recorded Temperature greater than 38.3C or Less than 36C, Recorded Respiratory Rate greater than 20, DRILLER AND BROACHER: altered consciousness (unrelated to primary neuro pathology), Metabolic: lactate > 2 mmol/L Assessment/Plan - Problem List (1) Gram-positive bacteremia Impression: Blood cultures grew Enterococcus faecalis and repeat have been negative to date. He will need IV antibiotics until October 19 to complete 2 weeks of treatment. We are still working on a safe discharge plan as we need to set up a daily) to come to the [facility] [place] for daily daptomycin or discharge to SNF where he can either receive penicillin or daptomycin. We are hopeful this will be achieved tomorrow. If he is on daptomycin he will need weekly CKs. Otherwise he will need just weekly ESR, CRP while he is on IV antibiotics. A PICC line was placed today. (2) UTI (urinary tract infection) Impression: Urine culture grew Enterococcus which is a source of his bacteremia. Plan as mentioned above. (3) Left sided abdominal pain Impression: This may be related to the nephrolithiasis or his renal cysts. Ultrasound and CT revealed no acute abnormalities. We will continue with oxycodone as needed. (4) Acute kidney injury superimposed on chronic kidney disease Impression: His creatinine took a slight increase today at 1.5 compared to baseline of 1.2. This may have been due to resumption of spironolactone and losartan. We will discontinue his spironolactone but continue losartan for time being. I have also decreased his Lasix dose from 40 mg twice daily to 40 mg daily. We will recheck renal function the morning. (5) Urinary retention with incomplete bladder emptying Impression: A Mahan catheter has been placed and he will need outpatient follow-up with his primary care provider and urology. Continue Flomax. (6) Hx of coronary artery disease Impression: Stable. We are continuing his home medications. (7) Insulin dependent diabetes mellitus Impression: He had further hypoglycemia likely due to the fact that his home insulin regimen is too much for him given his diet is better controlled while hospitalized. We have decreased his morning Lantus dose to 80 units and we have discontinued his evening Lantus dose altogether. Continue to monitor his blood glucose closely. (8) Sepsis Impression: Resolved. Qualifiers: Sepsis type: sepsis due to unspecified organism Sepsis acute organ dysfunction status: with acute organ dysfunction Severe sepsis acute organ dysfunction type: encephalopathy (9) HCAP (healthcare-associated pneumonia) Impression: There was initial concern for HCAP but this was felt to be less likely and antibiotics for this were discontinued.
[2020-10-10] MEDS: ATORVASTATIN 10 MG TABLET PO SCH (20:59)
[2020-10-10] MEDS: DULoxetine 30 MG CAPSULE PO SCH (20:59)
[2020-10-11] MEDS: AMPICILLIN 2 GM in SODIUM CHLORIDE 0.9% MINIBAG 100 ML IV SCH ×6 (00:55→21:06)
[2020-10-11] MEDS: SODIUM CHLORIDE FLUSH 0.9% 10 ML SYRINGE IVP SCH ×3 (00:57→17:28)
[2020-10-11] MEDS: oxyCODONE 5 MG TABLET PO PRN ×3 (05:27→17:29)
[2020-10-11] MEDS: ACETAMINOPHEN 325 MG TABLET PO PRN ×3 (05:27→17:28)
[2020-10-11] MEDS: SODIUM CHLORIDE FLUSH 0.9% 10 ML SYRINGE IVP PRN ×3 (05:37→22:10)
[2020-10-11 06:01] LABS: BASOPHILS # (AUTO) 0.1 10^3/uL (0.0-0.1); BASOPHILS % (AUTO) 0.9 %; EOSINOPHILS # (AUTO) 0.2 10^3/uL (0.0-0.7); EOSINOPHILS % (AUTO) 3.4 %; HCT - HEMATOCRIT 25.5 % (42.0-52.0); HGB - HEMOGLOBIN 8.2 g/dL (14.0-18.0); LYMPHOCYTES # (AUTO) 1.6 10^3/uL (1.5-3.5); LYMPHOCYTES % (AUTO) 29.3 %; MEAN CORPUSCULAR HEMOGLOBIN 31.7 pg (27.0-31.0); MEAN CORPUSCULAR HGB CONC 32.2 g/dL (32.0-36.0); MEAN CORPUSCULAR VOLUME 98.5 fL (80.0-94.0); MEAN PLATELET VOLUME 9.1 fL (7.4-11.4); MONOCYTES # (AUTO) 0.5 10^3/uL (0.0-1.0); MONOCYTES % (AUTO) 8.7 %; NEUTROPHILS % (AUTO) 54.4 %; PLT - PLATELET COUNT 149 10^3/uL (130-450); RED BLOOD COUNT 2.59 10^6/uL (4.70-6.10); RED CELL DISTRIBUTION WIDTH 13.3 % (12.0-15.0); WHITE BLOOD COUNT 5.5 x10^3/uL (4.8-10.8)
[2020-10-11 06:16] LABS: CALCIUM 7.5 mg/dL (8.5-10.3); CREATININE 1.1 mg/dL (0.6-1.2); MAGNESIUM 1.9 mg/dL (1.7-2.8); POTASSIUM 3.9 mmol/L (3.5-5.0)
[2020-10-11] MEDS: PRENATAL VITAMIN TABLET PO SCH (07:55)
[2020-10-11] MEDS: GABAPENTIN 300 MG CAPSULE PO SCH ×3 (07:55→21:03)
[2020-10-11] MEDS: INSULIN ASPART 300 UNIT/3 ML PEN SUBQ SCH ×4 (07:56→20:57)
[2020-10-11] MEDS: polyethylene glycoL 3350 17 GM PACKET PO SCH (08:28)
[2020-10-11] MEDS: LOSARTAN 50 MG TABLET PO SCH (08:29)
[2020-10-11] MEDS: carvediloL 12.5 MG TABLET PO SCH ×2 (08:29→21:03)
[2020-10-11] MEDS: DOCUSATE SODIUM 250 MG CAPSULE PO SCH (08:29)
[2020-10-11] MEDS: HEPARIN 5,000 UNIT/ML VIAL SUBQ SCH ×2 (08:31→20:55)
[2020-10-11] MEDS: ASPIRIN EC 81 MG TABLET PO SCH (08:39)
[2020-10-11] MEDS: FUROSEMIDE 40 MG TABLET PO SCH (08:39)
[2020-10-11] MEDS: INSULIN GLARGINE 300 UNIT/3 ML PEN SUBQ SCH (08:39)
[2020-10-11] MEDS: TAMSULOSIN 0.4 MG CAPSULE PO SCH (08:39)
[2020-10-11] MEDS: NYSTATIN POWDER 15 GM TOP SCH ×2 (08:39→21:03)
[2020-10-11] MEDS: THIAMINE 100 MG TABLET PO SCH (08:39)
[2020-10-11] MEDS ORDERED: COVID-19 VACC, MRNA(PFIZER)/PF 30 MCG/0.3 ML SYRINGE IM ONE (10:00)
--- NOTE | 2020-10-11 19:22 | PROVIDER PROGRESS NOTE ---
Assessment/Plan - Problem List (1) Gram-positive bacteremia Assessment/Plan: Enterococcus was identified in the blood. He will need 2 weeks total of IV antibiotics. A PICC line has been inserted. The plan is to discharge him to SNF for nursing management of his IV antibiotics via the PICC line (2) UTI (urinary tract infection) Qualifiers: Hematuria presence: with hematuria Assessment/Plan: a This is the source of the back uremia. Continue with IV antibiotics, Mahan catheter, Flomax. (3) Urinary retention with incomplete bladder emptying Assessment/Plan: Continues to need his Mahan catheter and Flomax was started during this admission. He will require urology appt for follow-up soon after discharge. (4) Acute kidney injury superimposed on chronic kidney disease Assessment/Plan: Improved (5) Insulin dependent diabetes mellitus Assessment/Plan: Insulin needs here are much lower than what he was on at home (110 units subcu twice daily of Lantus in here only 70 units subcu once daily), very likely ariel use of is not following a diabetic diet on the outside (6) Hyponatremia Assessment/Plan: As per history. Continue with present meds and management (7) Hyperkalemia Assessment/Plan: Replace with potassium. Follow BMP daily (8) Anemia Assessment/Plan: Follow H/H daily (9) Thrombocytopenia Assessment/Plan: This appears to be a chronic problem and we assumed it was from chronic alcohol abuse. Follow CBC daily (10) Hx of coronary artery disease Assessment/Plan: Per history. Continue his cardiac meds (11) PVD (peripheral vascular disease) Assessment/Plan: As per Hx (12) Hx of right BKA Assessment/Plan: Per history. He was able to transfer independently using his arms from bed to chair before the last admission. He has become quite deconditioned while here for 2 admissions (13) HCAP (healthcare-associated pneumonia) Assessment/Plan: Ruled out (14) Metabolic encephalopathy Assessment/Plan: Resolved - Current Meds Current Meds: Current Medications Generic Name Dose Route Start Last Admin Trade Name Freq PRN Reason Stop Dose Admin Acetaminophen 650 mg 10/03/20 22:12 10/11/20 17:28 Acetaminophen 325 Mg Tablet PO 650 mg Q4HR PRN Administration Pain or Fever > 38C (100.4F) Aspirin 81 mg 10/07/20 09:00 10/11/20 08:39 Aspirin Ec 81 Mg Tablet PO 81 mg DAILY CATIE Administration Atorvastatin Calcium 40 mg 10/04/20 21:00 10/10/20 20:59 Atorvastatin 10 Mg Tablet PO 40 mg QPM CATIE Administration Carvedilol 25 mg 10/04/20 09:00 10/11/20 08:29 Carvedilol 12.5 Mg Tablet PO 25 mg BID CATIE Administration Diphenhydramine HCl 25 mg 10/06/20 23:05 10/10/20 13:14 Diphenhydramine 25 Mg Capsule PO 25 mg Q4HR PRN Administration Allergy Symptoms Docusate Sodium 250 - 500 mg 10/04/20 15:00 10/11/20 08:29 Docusate Sodium 250 Mg Capsule PO 250 mg DAILY CATIE Administration Duloxetine HCl 60 mg 10/05/20 21:00 10/10/20 20:59 Duloxetine 30 Mg Capsule PO 60 mg HS CATIE Administration Furosemide 40 mg 10/10/20 09:00 10/11/20 08:39 Furosemide 40 Mg Tablet PO 40 mg DAILY CATIE Administration Gabapentin 600 mg 10/04/20 01:00 10/10/20 20:59 Gabapentin 300 Mg Capsule PO 600 mg HS CATIE Administration Gabapentin 300 mg 10/04/20 08:00 10/11/20 14:56 Gabapentin 300 Mg Capsule PO 300 mg 0800,1500 CATIE Administration Heparin Sodium (Porcine) 5,000 unit 10/06/20 09:00 10/11/20 08:31 Heparin 5,000 Unit/Ml Vial SUBQ 5,000 unit BID CATIE Administration Ampicillin Sodium 2 gm/ Sodium 100 mls @ 100 mls/hr 10/08/20 13:00 10/11/20 18:45 Chloride IV Infused Q4HR CATIE Infusion Insulin Aspart 1 - 9 unit 10/04/20 12:00 10/11/20 17:29 Insulin Aspart 300 Unit/3 Ml Pen SUBQ 1 unit 0800,1200,1700,2100 CATIE Administration Protocol Insulin Glargine 70 unit 10/11/20 09:00 10/11/20 08:39 Insulin Glargine 300 Unit/3 Ml Pen SUBQ 70 unit DAILY CATIE Administration Losartan Potassium 50 mg 10/07/20 09:00 10/11/20 08:29 Losartan 50 Mg Tablet PO 50 mg DAILY CATIE Administration Multi-Ingredient Ointment 1 applic 10/04/20 13:39 10/10/20 10:16 Zinc Oxide 20% Oint 30 Gm Tube TOP 1 applic PRN PRN Administration Skin Care Nystatin 1 applic 10/09/20 12:00 10/11/20 08:39 Nystatin Powder 15 Gm TOP 1 applic BID CATIE Administration Oxycodone HCl 7.5 mg 10/08/20 16:59 10/11/20 17:29 Oxycodone 5 Mg Tablet PO 7.5 mg Q4HR PRN Administration PAIN Polyethylene Glycol 17 gm 10/04/20 16:00 10/11/20 08:28 Polyethylene Glycol 3350 17 Gm Packet PO 17 gm DAILY CATIE Administration Multivit/Folic Acid/Iron 1 tab 10/06/20 12:00 10/11/20 07:55 Vitamin Tablet PO 1 tab DAILYWM CATIE Administration Sodium Chloride 10 ml 10/03/20 22:12 10/11/20 19:02 Sodium Chloride Flush 0.9% 10 Ml Syringe IVP 10 ml PRN PRN Administration NEEDED PER PROVIDER ORDERS Sodium Chloride 10 ml 10/04/20 01:00 10/11/20 17:28 Sodium Chloride Flush 0.9% 10 Ml Syringe IVP 10 ml 0100,0900,1700 CATIE Administration Sodium Chloride 20 ml 10/07/20 03:42 10/11/20 05:37 Sodium Chloride Flush 0.9% 10 Ml Syringe IVP 20 ml PRN PRN Administration After Blood Draw Tamsulosin HCl 0.4 mg 10/04/20 09:00 10/11/20 08:39 Tamsulosin 0.4 Mg Capsule PO 0.4 mg DAILY CATIE Administration Thiamine HCl 100 mg 10/06/20 12:00 10/11/20 08:39 Thiamine 100 Mg Tablet PO 100 mg DAILY CATIE Administration - Lab Result Fish Bone Diagrams: 10/12/20 05:05 10/12/20 05:05 - Additional Planning My Orders: My Active Orders 10/11/20 09:00 Insulin Glargine [Lantus Solostar] 70 unit SUBQ DAILY 10/11/20 16:27 Mahan Irrigation [Urinary Catheter Flush] [RC] .once Subjective - Subjective Patient Reports: Feeling Better, Resting Comfortably, Other (Appears comfortable, is sleeping) Objective Vital Signs: Vital Signs - 24 hr 10/10/20 10/11/20 10/11/20 20:23 00:45 05:00 Temperature 36.9 C 36.7 C 36.6 C Heart Rate [ 75 71 70 Brachial] Respiratory 20 18 16 Rate Blood Pressure 120/82 H [Left Brachial artery] Blood Pressure 153/74 H 106/57 L [Right Brachial artery] O2 Saturation 97 94 95 10/11/20 10/11/20 10/11/20 07:46 11:00 16:12 Temperature 36.9 C 36.9 C 36.4 C L Heart Rate [ 74 74 71 Brachial] Respiratory 18 18 18 Rate Blood Pressure 130/51 L [Left Brachial artery] Blood Pressure 143/83 H 140/73 H [Right Brachial artery] O2 Saturation 93 95 98 Oxygen O2 Source Room air I&O (Last 24 Hrs): Intake and Output Totals x24h 10/09/20 10/10/20 10/11/20 23:59 23:59 23:59 Intake Total 2210 2781.88 3220 Output Total 5100 6405 8989 Balance -0726 -9627.12 -613 General: No acute distress (Is sleeping and in no distress. he is communicative with his RN and eating indep.) HEENT: Mucous membr. moist/pink Neck: Supple, No JVD Neuro: Non Focal Cardiovascular: Regular rate Respiratory: No respiratory distress Abdomen: Soft (Obese with pannus) Genitourinary: Other (Maahn in place) Extremities: Other (R BKA, L has venous stasis changes) - Results Results: Laboratory Results WBC 5.5 x10^3/uL (4.8-10.8) 10/11/20 05:30 RBC 2.59 10^6/uL (4.70-6.10) L 10/11/20 05:30 Hgb 8.2 g/dL (14.0-18.0) L 10/11/20 05:30 Hct 25.5 % (42.0-52.0) L 10/11/20 05:30 MCV 98.5 fL (80.0-94.0) H 10/11/20 05:30 MCH 31.7 pg (27.0-31.0) H 10/11/20 05:30 MCHC 32.2 g/dL (32.0-36.0) 10/11/20 05:30 RDW 13.3 % (12.0-15.0) 10/11/20 05:30 Plt Count 149 10^3/uL (130-450) 10/11/20 05:30 MPV 9.1 fL (7.4-11.4) 10/11/20 05:30 Neut # (Auto) 3.0 10^3/uL (1.5-6.6) 10/11/20 05:30 Lymph # (Auto) 1.6 10^3/uL (1.5-3.5) 10/11/20 05:30 Story # (Auto) 0.5 10^3/uL (0.0-1.0) 10/11/20 05:30 Eos # (Auto) 0.2 10^3/uL (0.0-0.7) 10/11/20 05:30 Baso # (Auto) 0.1 10^3/uL (0.0-0.1) 10/11/20 05:30 Absolute Nucleated RBC 0.00 x10^3/uL 10/11/20 05:30 Total Counted 100 10/06/20 05:10 Band Neuts % (Manual) 3 % (0-10) 10/06/20 05:10 Abnorm Lymph % (Manual) 0 % 10/06/20 05:10 Nucleated RBC % 0.0 /100WBC 10/11/20 05:30 Neutrophils # (Manual) 4.3 10^3/uL (1.5-6.6) 10/06/20 05:10 Lymphocytes # (Manual) 1.2 10^3/uL (1.5-3.5) L 10/06/20 05:10 Monocytes # (Manual) 0.4 10^3/uL (0.0-1.0) 10/06/20 05:10 Eosinophils # (Manual) 0.2 10^3/uL (0-0.7) 10/06/20 05:10 Basophils # (Manual) 0.0 10^3/uL (0-0.1) 10/06/20 05:10 Differential Comment MANUAL DIFFERENTIAL 10/06/20 05:10 WBC Morphology NORMAL APPEARANCE (NORMAL) 10/04/20 05:52 Platelet Estimate DECREASED (<130,000) (NORMAL) 10/06/20 05:10 Platelet Morphology NORMAL APPEARANCE (NORMAL) 10/04/20 05:52 RBC Morph Micro Appear NORMAL APPEARANCE (NORMAL) 10/06/20 05:10 PT 14.2 secs (9.9-12.6) H 10/03/20 22:35 INR 1.3 (0.8-1.2) H 10/03/20 22:35 Sodium 146 mmol/L (135-145) H 10/11/20 05:30 Potassium 3.9 mmol/L (3.5-5.0) 10/11/20 05:30 Chloride 108 mmol/L (101-111) 10/11/20 05:30 Carbon Dioxide 27 mmol/L (21-32) 10/11/20 05:30 Anion Gap 11.0 (6-13) 10/11/20 05:30 BUN 15 mg/dL (6-20) 10/11/20 05:30 Creatinine 1.1 mg/dL (0.6-1.2) 10/11/20 05:30 Estimated GFR (MDRD) 65 (>89) L 10/11/20 05:30 Glucose 68 mg/dL (70-100) L 10/11/20 05:30 Estimat Average Glucose 235 mg/dL (70-100) H 10/04/20 05:52 Hemoglobin A1c % 9.8 % (4.27-6.07) H 10/04/20 05:52 Lactic Acid 1.6 mmol/L (0.5-2.2) 10/04/20 00:30 Calcium 7.5 mg/dL (8.5-10.3) L 10/11/20 05:30 Magnesium 1.9 mg/dL (1.7-2.8) 10/11/20 05:30 Iron 23 ug/dL (45-182) L 10/07/20 05:10 TIBC 237 ug/dL (250-450) L 10/07/20 05:10 % Saturation 10 % (20-50) L 10/07/20 05:10 Transferrin 169 mg/dL (180-329) L 10/07/20 05:10 Ferritin 225.3 ng/mL (23.9-336.2) 10/07/20 05:10 Total Bilirubin 0.7 mg/dL (0.2-1.0) 10/09/20 04:47 Direct Bilirubin 0.1 mg/dL (0.1-0.5) 10/09/20 04:47 AST 44 IU/L (10-42) H 10/09/20 04:47 ALT 32 IU/L (10-60) 10/09/20 04:47 Alkaline Phosphatase 110 IU/L (42-121) 10/09/20 04:47 Total Creatine Kinase 53 IU/L (22-269) 10/08/20 06:30 C-Reactive Protein 10.4 mg/dL (0-1.0) H 10/07/20 05:10 B-Natriuretic Peptide 254 pg/mL (5-100) H 10/04/20 00:30 Total Protein 6.9 g/dL (6.7-8.2) 10/09/20 04:47 Albumin 2.5 g/dL (3.2-5.5) L 10/09/20 04:47 Globulin 4.4 g/dL (2.1-4.2) H 10/09/20 04:47 Albumin/Globulin Ratio 0.7 (1.0-2.2) L 10/03/20 19:47 Vitamin B12 819 pg/mL (180-914) 10/07/20 05:10 Folate 26.00 ng/mL (5.90 - >24.8) 10/07/20 05:10 Urine Color YELLOW 10/03/20 23:15 Urine Clarity SL. CLOUDY (CLEAR) 10/03/20 23:15 Urine pH 5.5 PH (5.0-7.5) 10/03/20 23:15 Ur Specific [place] 1.015 (1.002-1.030) 10/03/20 23:15 Urine Protein TRACE mg/dL (NEGATIVE) 10/03/20 23:15 Urine Glucose (UA) 500 mg/dL (NEGATIVE) H 10/03/20 23:15 Urine Ketones NEGATIVE mg/dL (NEGATIVE) 10/03/20 23:15 Urine Occult Blood SMALL (NEGATIVE) H 10/03/20 23:15 Urine Nitrite NEGATIVE (NEGATIVE) 10/03/20 23:15 Urine Bilirubin NEGATIVE (NEGATIVE) 10/03/20 23:15 Urine Urobilinogen 0.2 (NORMAL) E.U./dL (NORMAL) 10/03/20 23:15 Ur Leukocyte Esterase NEGATIVE (NEGATIVE) 10/03/20 23:15 Urine RBC 6-10 /HPF (0-5) H 10/03/20 23:15 Urine WBC 6-10 /HPF (0-3) H 10/03/20 23:15 Ur Squamous Epith Cells RARE Squamous (<= Few) 10/03/20 23:15 Urine Bacteria Moderate /HPF (None Seen) H 10/03/20 23:15 Urine Culture Comments NOT INDICATED 10/03/20 23:15 Nasal Adenovirus (PCR) NOT DETECTED 10/03/20 21:26 Nasal B. parapertussis DNA (PCR) NOT DETECTED 10/03/20 21:26 Nasal Coronavir 229E PCR NOT DETECTED 10/03/20 21:26 Nasal Coronavir HKU1 PCR NOT DETECTED 10/03/20 21:26 Nasal Coronavir NL63 PCR NOT DETECTED 10/03/20 21:26 Nasal Coronavir OC43 PCR NOT DETECTED 10/03/20 21:26 Nasal Enterovir/Rhinovir PCR NOT DETECTED 10/03/20 21:26 Nasal Influenza B PCR NOT DETECTED 10/03/20 21:26 Nasal Influenza A PCR NOT DETECTED 10/03/20 21:26 Nasal Parainfluen 1 PCR NOT DETECTED 10/03/20 21:26 Nasal Parainfluen 2 PCR NOT DETECTED 10/03/20 21:26 Nasal Parainfluen 3 PCR NOT DETECTED 10/03/20 21:26 Nasal Parainfluen 4 PCR NOT DETECTED 10/03/20 21:26 Nasal RSV (PCR) NOT DETECTED 10/03/20 21:26 Nasal B.pertussis DNA PCR NOT DETECTED 10/03/20 21:26 Nasal C.pneumoniae (PCR) NOT DETECTED 10/03/20 21:26 Tyler Human Metapneumo PCR NOT DETECTED 10/03/20 21:26 Nasal M.pneumoniae (PCR) NOT DETECTED 10/03/20 21:26 Nasal SARS-CoV-2 (PCR) NOT DETECTED 10/03/20 21:26 Last Dose Date 10/07/20 10/08/20 06:30 Last Dose Time 1600 10/08/20 06:30 Vancomycin Trough 21.3 ug/mL (10.0-20.0) H 10/08/20 06:30 Urine Opiates Screen POSITIVE (NEGATIVE) H 10/03/20 23:15 Ur Oxycodone Screen NEGATIVE (NEGATIVE) 10/03/20 23:15 Urine Methadone Screen NEGATIVE (NEGATIVE) 10/03/20 23:15 Ur Propoxyphene Screen NEGATIVE (NEGATIVE) 10/03/20 23:15 Ur Barbiturates Screen NEGATIVE (NEGATIVE) 10/03/20 23:15 Ur Tricyclics Screen NEGATIVE (NEGATIVE) 10/03/20 23:15 Ur Phencyclidine Scrn NEGATIVE (NEGATIVE) 10/03/20 23:15 Ur Amphetamine Screen NEGATIVE (NEGATIVE) 10/03/20 23:15 U Methamphetamines Scrn NEGATIVE (NEGATIVE) 10/03/20 23:15 U Benzodiazepines Scrn NEGATIVE (NEGATIVE) 10/03/20 23:15 Urine Cocaine Screen NEGATIVE (NEGATIVE) 10/03/20 23:15 U Cannabinoids Screen NEGATIVE (NEGATIVE) 10/03/20 23:15 Ethyl Alcohol < 5.0 mg/dL 10/03/20 19:47 - Procedures Procedures: Procedures DETACHMENT AT RIGHT LOWER LEG, HIGH, OPEN APPROACH (08/18/17) TRANSFUSE NONAUT RED BLOOD CELLS IN PERIPH VEIN, PERC (08/18/17) Sepsis Event Note (H) - Evaluation Current Stage of Sepsis: Resolved Possible source of Sepsis: positive: Genitourinary - Sepsis Criteria Sepsis Criteria: Recorded Temperature greater than 38.3C or Less than 36C, Recorded Respiratory Rate greater than 20, CROSSTIE INSPECTOR: altered consciousness (unrelated to primary neuro pathology), Metabolic: lactate > 2 mmol/L
[2020-10-11] MEDS ORDERED: COD LIVER OIL/ZINC OXIDE 113 GM TUBE TOP PRN (19:46)
[2020-10-11] MEDS: ATORVASTATIN 10 MG TABLET PO SCH (21:02)
[2020-10-11] MEDS: DULoxetine 30 MG CAPSULE PO SCH (21:03)
[2020-10-12] MEDS: AMPICILLIN 2 GM in SODIUM CHLORIDE 0.9% MINIBAG 100 ML IV SCH ×6 (00:50→21:23)
[2020-10-12] MEDS: SODIUM CHLORIDE FLUSH 0.9% 10 ML SYRINGE IVP SCH ×3 (00:50→17:14)
[2020-10-12] MEDS: oxyCODONE 5 MG TABLET PO PRN ×3 (00:51→21:37)
[2020-10-12 05:54] LABS: BASOPHILS # (AUTO) 0.1 10^3/uL (0.0-0.1); BASOPHILS % (AUTO) 1.1 %; EOSINOPHILS # (AUTO) 0.2 10^3/uL (0.0-0.7); EOSINOPHILS % (AUTO) 3.2 %; HCT - HEMATOCRIT 28.2 % (42.0-52.0); HGB - HEMOGLOBIN 8.8 g/dL (14.0-18.0); LYMPHOCYTES # (AUTO) 1.4 10^3/uL (1.5-3.5); MEAN CORPUSCULAR HGB CONC 31.2 g/dL (32.0-36.0); MEAN CORPUSCULAR VOLUME 99.3 fL (80.0-94.0); MEAN PLATELET VOLUME 9.1 fL (7.4-11.4); MONOCYTES # (AUTO) 0.5 10^3/uL (0.0-1.0); MONOCYTES % (AUTO) 10.1 %; NEUTROPHILS # (AUTO) 2.9 10^3/uL (1.5-6.6); NEUTROPHILS % (AUTO) 55.9 %; PLT - PLATELET COUNT 165 10^3/uL (130-450); RED BLOOD COUNT 2.84 10^6/uL (4.70-6.10); RED CELL DISTRIBUTION WIDTH 13.2 % (12.0-15.0); WHITE BLOOD COUNT 5.3 x10^3/uL (4.8-10.8)
[2020-10-12 06:01] LABS: CALCIUM 9.1 mg/dL (8.5-10.3); CREATININE 1.1 mg/dL (0.6-1.2); POTASSIUM 4.1 mmol/L (3.5-5.0)
[2020-10-12] MEDS: ACETAMINOPHEN 325 MG TABLET PO PRN ×2 (07:51→13:03)
[2020-10-12] MEDS: GABAPENTIN 300 MG CAPSULE PO SCH ×3 (07:51→21:29)
[2020-10-12] MEDS: INSULIN ASPART 300 UNIT/3 ML PEN SUBQ SCH ×4 (07:52→21:42)
[2020-10-12] MEDS: PRENATAL VITAMIN TABLET PO SCH (07:52)
[2020-10-12] MEDS: DOCUSATE SODIUM 250 MG CAPSULE PO SCH (08:32)
[2020-10-12] MEDS: FUROSEMIDE 40 MG TABLET PO SCH (08:32)
[2020-10-12] MEDS: LOSARTAN 50 MG TABLET PO SCH (08:32)
[2020-10-12] MEDS: TAMSULOSIN 0.4 MG CAPSULE PO SCH (08:32)
[2020-10-12] MEDS: carvediloL 12.5 MG TABLET PO SCH ×2 (08:32→21:29)
[2020-10-12] MEDS: ASPIRIN EC 81 MG TABLET PO SCH (08:32)
[2020-10-12] MEDS: THIAMINE 100 MG TABLET PO SCH (08:32)
[2020-10-12] MEDS: polyethylene glycoL 3350 17 GM PACKET PO SCH (08:33)
[2020-10-12] MEDS: NYSTATIN POWDER 15 GM TOP SCH ×2 (08:33→21:32)
[2020-10-12] MEDS: INSULIN GLARGINE 300 UNIT/3 ML PEN SUBQ SCH (08:34)
[2020-10-12] MEDS: HEPARIN 5,000 UNIT/ML VIAL SUBQ SCH ×2 (08:44→21:30)
--- NOTE | 2020-10-12 18:04 | PROVIDER PROGRESS NOTE ---
Assessment/Plan - Problem List (1) Bacteremia due to Enterococcus Assessment/Plan: He is being treated for Enterococcus bacteremia and the plan is for 2 weeks of IV antibiotics. His IV ampicillin every 4 hours is sensitive and we are working on placement for him to get IV antibiotics for 1 more week. (2) Complicated UTI (urinary tract infection) Assessment/Plan: The Enterococcus is in the urinary culture as well. Its has spread to the bloodstream making this a complicated UTI. Treatment is planned as above in #1 (3) Urinary retention with incomplete bladder emptying Assessment/Plan: This was a problem starting on the last admission. He needed Mahan insertion on the last admission, demanded that that it being removed before discharge. When he presented on this admission he had painful dilated bladder and again nee ded a Mahan insertion. Flomax has been started. He has intermittent hematuria possibly from instrumentation but also from the cystitis. Continue with chronic Mahan and he needs urology outpatient management (4) Insulin dependent diabetes mellitus Assessment/Plan: Continue with SS insulin coverage and Lantus insulin just once daily and carb controlled diet (5) Anemia Assessment/Plan: Chronic but stable, even with inyermittent hematuria Follow CBC daily (6) Thrombocytopenia Assessment/Plan: Neck and was felt to be related to his alcohol abuse. Follow CBC daily (7) Hx of coronary artery disease Assessment/Plan: As per history. (8) PVD (peripheral vascular disease) Assessment/Plan: As per history. (9) Hx of right BKA Assessment/Plan: As per history. (10) Metabolic encephalopathy Assessment/Plan: Improved with Rx of infection (11) Hyponatremia Assessment/Plan: Resolved. (12) Hyperkalemia Assessment/Plan: Resolved. (13) HCAP (healthcare-associated pneumonia) Assessment/Plan: This has been ruled out, the urine appears to be the source (14) Acute kidney injury superimposed on chronic kidney disease Assessment/Plan: Resolved. - Current Meds Current Meds: Current Medications Generic Name Dose Route Start Last Admin Trade Name Freq PRN Reason Stop Dose Admin Acetaminophen 650 mg 10/03/20 22:12 10/12/20 13:03 Acetaminophen 325 Mg Tablet PO 650 mg Q4HR PRN Administration Pain or Fever > 38C (100.4F) Aspirin 81 mg 10/07/20 09:00 10/12/20 08:32 Aspirin Ec 81 Mg Tablet PO 81 mg DAILY CATIE Administration Atorvastatin Calcium 40 mg 10/04/20 21:00 10/11/20 21:02 Atorvastatin 10 Mg Tablet PO 40 mg QPM CATIE Administration Carvedilol 25 mg 10/04/20 09:00 10/12/20 08:32 Carvedilol 12.5 Mg Tablet PO 25 mg BID CATIE Administration Diphenhydramine HCl 25 mg 10/06/20 23:05 10/10/20 13:14 Diphenhydramine 25 Mg Capsule PO 25 mg Q4HR PRN Administration Allergy Symptoms Docusate Sodium 250 - 500 mg 10/04/20 15:00 10/12/20 08:32 Docusate Sodium 250 Mg Capsule PO 250 mg DAILY CATIE Administration Duloxetine HCl 60 mg 10/05/20 21:00 10/11/20 21:03 Duloxetine 30 Mg Capsule PO 60 mg HS CATIE Administration Furosemide 40 mg 10/10/20 09:00 10/12/20 08:32 Furosemide 40 Mg Tablet PO 40 mg DAILY CATIE Administration Gabapentin 600 mg 10/04/20 01:00 10/11/20 21:03 Gabapentin 300 Mg Capsule PO 600 mg HS CATIE Administration Gabapentin 300 mg 10/04/20 08:00 10/12/20 14:39 Gabapentin 300 Mg Capsule PO 300 mg 0800,1500 CATIE Administration Heparin Sodium (Porcine) 5,000 unit 10/06/20 09:00 10/12/20 08:44 Heparin 5,000 Unit/Ml Vial SUBQ 5,000 unit BID CATIE Administration Ampicillin Sodium 2 gm/ Sodium 100 mls @ 100 mls/hr 10/08/20 13:00 10/12/20 17:06 Chloride IV 100 mls/hr Q4HR CATIE Administration Insulin Aspart 1 - 9 unit 10/04/20 12:00 10/12/20 17:13 Insulin Aspart 300 Unit/3 Ml Pen SUBQ 3 unit 0800,1200,1700,2100 CATIE Administration Protocol Insulin Glargine 70 unit 10/11/20 09:00 10/12/20 08:34 Insulin Glargine 300 Unit/3 Ml Pen SUBQ 70 unit DAILY CATIE Administration Losartan Potassium 50 mg 10/07/20 09:00 10/12/20 08:32 Losartan 50 Mg Tablet PO 50 mg DAILY CATIE Administration Multi-Ingredient Ointment 1 applic 10/04/20 13:39 10/10/20 10:16 Zinc Oxide 20% Oint 30 Gm Tube TOP 1 applic PRN PRN Administration Skin Care Nystatin 1 applic 10/09/20 12:00 10/12/20 08:33 Nystatin Powder 15 Gm TOP 1 applic BID CATIE Administration Oxycodone HCl 7.5 mg 10/08/20 16:59 10/12/20 07:50 Oxycodone 5 Mg Tablet PO 7.5 mg Q4HR PRN Administration PAIN Polyethylene Glycol 17 gm 10/04/20 16:00 10/12/20 08:33 Polyethylene Glycol 3350 17 Gm Packet PO 17 gm DAILY CATIE Administration Multivit/Folic Acid/Iron 1 tab 10/06/20 12:00 10/12/20 07:52 Vitamin Tablet PO 1 tab DAILYWM CATIE Administration Sodium Chloride 10 ml 10/03/20 22:12 10/11/20 22:10 Sodium Chloride Flush 0.9% 10 Ml Syringe IVP 10 ml PRN PRN Administration NEEDED PER PROVIDER ORDERS Sodium Chloride 10 ml 10/04/20 01:00 10/12/20 17:14 Sodium Chloride Flush 0.9% 10 Ml Syringe IVP Not Given 0100,0900,1700 CATIE Sodium Chloride 20 ml 10/07/20 03:42 10/11/20 05:37 Sodium Chloride Flush 0.9% 10 Ml Syringe IVP 20 ml PRN PRN Administration After Blood Draw Tamsulosin HCl 0.4 mg 10/04/20 09:00 10/12/20 08:32 Tamsulosin 0.4 Mg Capsule PO 0.4 mg DAILY CATIE Administration Thiamine HCl 100 mg 10/06/20 12:00 10/12/20 08:32 Thiamine 100 Mg Tablet PO 100 mg DAILY CATIE Administration Zinc Oxide 113 gm 10/11/20 19:46 10/12/20 13:05 Cod Liver Oil/Zinc Oxide 113 Gm Tube TOP 1 applic PRN PRN Administration Skin Care - Lab Result Fish Bone Diagrams: 10/12/20 05:05 10/12/20 05:05 - Additional Planning My Orders: My Active Orders 10/11/20 19:46 Cod Liver Oil/Zinc Oxide [Desitin] 113 gm TOP PRN PRN Subjective - Subjective Patient Reports: Resting Comfortably, No Complaints Objective Vital Signs: Vital Signs - 24 hr 10/11/20 10/12/20 10/12/20 20:39 00:40 04:51 Temperature 36.8 C 36.5 C 36.4 C L Heart Rate [ 72 71 77 Brachial] Respiratory 18 16 18 Rate Blood Pressure 144/79 H 148/74 H 150/76 H [Right Brachial artery] O2 Saturation 97 95 98 10/12/20 10/12/20 10/12/20 07:30 11:19 16:40 Temperature 36.8 C 36.8 C 36.8 C Heart Rate [ 71 72 72 Brachial] Respiratory 18 18 20 Rate Blood Pressure 165/88 H 142/75 H 118/72 [Right Brachial artery] O2 Saturation 95 94 96 Oxygen O2 Source Room air I&O (Last 24 Hrs): Intake and Output Totals x24h 10/10/20 10/11/20 10/12/20 23:59 23:59 23:59 Intake Total 2781.88 3640 2530 Output Total 6175 1950 4771 [facility] -3393.12 -8550 -0334 General: Alert, Other (Currently sleeping but usually communicative, interactive, able to feed himself) HEENT: Atraumatic, Mucous membr. moist/pink Neck: Supple, No JVD Neuro: Alert, Non Focal Cardiovascular: No murmurs Respiratory: No respiratory distress Abdomen: Soft (Obese with pannus) Genitourinary: Other (Mahan catheter in place, intermittently he has ubaldo- orange urine) Extremities: Other (Right BKA, left has venous stasis changes) - Results Results: Laboratory Results WBC 5.3 x10^3/uL (4.8-10.8) 10/12/20 05:05 RBC 2.84 10^6/uL (4.70-6.10) L 10/12/20 05:05 Hgb 8.8 g/dL (14.0-18.0) L 10/12/20 05:05 Hct 28.2 % (42.0-52.0) L 10/12/20 05:05 MCV 99.3 fL (80.0-94.0) H 10/12/20 05:05 MCH 31.0 pg (27.0-31.0) 10/12/20 05:05 MCHC 31.2 g/dL (32.0-36.0) L 10/12/20 05:05 RDW 13.2 % (12.0-15.0) 10/12/20 05:05 Plt Count 165 10^3/uL (130-450) 10/12/20 05:05 MPV 9.1 fL (7.4-11.4) 10/12/20 05:05 Neut # (Auto) 2.9 10^3/uL (1.5-6.6) 10/12/20 05:05 Lymph # (Auto) 1.4 10^3/uL (1.5-3.5) L 10/12/20 05:05 Jessamine # (Auto) 0.5 10^3/uL (0.0-1.0) 10/12/20 05:05 Eos # (Auto) 0.2 10^3/uL (0.0-0.7) 10/12/20 05:05 Baso # (Auto) 0.1 10^3/uL (0.0-0.1) 10/12/20 05:05 Absolute Nucleated RBC 0.00 x10^3/uL 10/12/20 05:05 Total Counted 100 10/06/20 05:10 Band Neuts % (Manual) 3 % (0-10) 10/06/20 05:10 Abnorm Lymph % (Manual) 0 % 10/06/20 05:10 Nucleated RBC % 0.0 /100WBC 10/12/20 05:05 Neutrophils # (Manual) 4.3 10^3/uL (1.5-6.6) 10/06/20 05:10 Lymphocytes # (Manual) 1.2 10^3/uL (1.5-3.5) L 10/06/20 05:10 Monocytes # (Manual) 0.4 10^3/uL (0.0-1.0) 10/06/20 05:10 Eosinophils # (Manual) 0.2 10^3/uL (0-0.7) 10/06/20 05:10 Basophils # (Manual) 0.0 10^3/uL (0-0.1) 10/06/20 05:10 Differential Comment MANUAL DIFFERENTIAL 10/06/20 05:10 WBC Morphology NORMAL APPEARANCE (NORMAL) 10/04/20 05:52 Platelet Estimate DECREASED (<130,000) (NORMAL) 10/06/20 05:10 Platelet Morphology NORMAL APPEARANCE (NORMAL) 10/04/20 05:52 RBC Morph Micro Appear NORMAL APPEARANCE (NORMAL) 10/06/20 05:10 PT 14.2 secs (9.9-12.6) H 10/03/20 22:35 INR 1.3 (0.8-1.2) H 10/03/20 22:35 Sodium 137 mmol/L (135-145) 10/12/20 05:05 Potassium 4.1 mmol/L (3.5-5.0) 10/12/20 05:05 Chloride 100 mmol/L (101-111) L 10/12/20 05:05 Carbon Dioxide 28 mmol/L (21-32) 10/12/20 05:05 Anion Gap 9.0 (6-13) 10/12/20 05:05 BUN 13 mg/dL (6-20) 10/12/20 05:05 Creatinine 1.1 mg/dL (0.6-1.2) 10/12/20 05:05 Estimated GFR (MDRD) 65 (>89) L 10/12/20 05:05 Glucose 105 mg/dL (70-100) H 10/12/20 05:05 Estimat Average Glucose 235 mg/dL (70-100) H 10/04/20 05:52 Hemoglobin A1c % 9.8 % (4.27-6.07) H 10/04/20 05:52 Lactic Acid 1.6 mmol/L (0.5-2.2) 10/04/20 00:30 Calcium 9.1 mg/dL (8.5-10.3) 10/12/20 05:05 Magnesium 2.0 mg/dL (1.7-2.8) 10/12/20 05:05 Iron 23 ug/dL (45-182) L 10/07/20 05:10 TIBC 237 ug/dL (250-450) L 10/07/20 05:10 % Saturation 10 % (20-50) L 10/07/20 05:10 Transferrin 169 mg/dL (180-329) L 10/07/20 05:10 Ferritin 225.3 ng/mL (23.9-336.2) 10/07/20 05:10 Total Bilirubin 0.7 mg/dL (0.2-1.0) 10/09/20 04:47 Direct Bilirubin 0.1 mg/dL (0.1-0.5) 10/09/20 04:47 AST 44 IU/L (10-42) H 10/09/20 04:47 ALT 32 IU/L (10-60) 10/09/20 04:47 Alkaline Phosphatase 110 IU/L (42-121) 10/09/20 04:47 Total Creatine Kinase 53 IU/L (22-269) 10/08/20 06:30 C-Reactive Protein 10.4 mg/dL (0-1.0) H 10/07/20 05:10 B-Natriuretic Peptide 254 pg/mL (5-100) H 10/04/20 00:30 Total Protein 6.9 g/dL (6.7-8.2) 10/09/20 04:47 Albumin 2.5 g/dL (3.2-5.5) L 10/09/20 04:47 Globulin 4.4 g/dL (2.1-4.2) H 10/09/20 04:47 Albumin/Globulin Ratio 0.7 (1.0-2.2) L 10/03/20 19:47 Vitamin B12 819 pg/mL (180-914) 10/07/20 05:10 Folate 26.00 ng/mL (5.90 - >24.8) 10/07/20 05:10 Urine Color YELLOW 10/03/20 23:15 Urine Clarity SL. CLOUDY (CLEAR) 10/03/20 23:15 Urine pH 5.5 PH (5.0-7.5) 10/03/20 23:15 Ur Specific [place] 1.015 (1.002-1.030) 10/03/20 23:15 Urine Protein TRACE mg/dL (NEGATIVE) 10/03/20 23:15 Urine Glucose (UA) 500 mg/dL (NEGATIVE) H 10/03/20 23:15 Urine Ketones NEGATIVE mg/dL (NEGATIVE) 10/03/20 23:15 Urine Occult Blood SMALL (NEGATIVE) H 10/03/20 23:15 Urine Nitrite NEGATIVE (NEGATIVE) 10/03/20 23:15 Urine Bilirubin NEGATIVE (NEGATIVE) 10/03/20 23:15 Urine Urobilinogen 0.2 (NORMAL) E.U./dL (NORMAL) 10/03/20 23:15 Ur Leukocyte Esterase NEGATIVE (NEGATIVE) 10/03/20 23:15 Urine RBC 6-10 /HPF (0-5) H 10/03/20 23:15 Urine WBC 6-10 /HPF (0-3) H 10/03/20 23:15 Ur Squamous Epith Cells RARE Squamous (<= Few) 10/03/20 23:15 Urine Bacteria Moderate /HPF (None Seen) H 10/03/20 23:15 Urine Culture Comments NOT INDICATED 10/03/20 23:15 Nasal Adenovirus (PCR) NOT DETECTED 10/03/20 21:26 Nasal B. parapertussis DNA (PCR) NOT DETECTED 10/03/20 21:26 Nasal Coronavir 229E PCR NOT DETECTED 10/03/20 21:26 Nasal Coronavir HKU1 PCR NOT DETECTED 10/03/20 21:26 Nasal Coronavir NL63 PCR NOT DETECTED 10/03/20 21:26 Nasal Coronavir OC43 PCR NOT DETECTED 10/03/20 21:26 Nasal Enterovir/Rhinovir PCR NOT DETECTED 10/03/20 21:26 Nasal Influenza B PCR NOT DETECTED 10/03/20 21:26 Nasal Influenza A PCR NOT DETECTED 10/03/20 21:26 Nasal Parainfluen 1 PCR NOT DETECTED 10/03/20 21:26 Nasal Parainfluen 2 PCR NOT DETECTED 10/03/20 21:26 Nasal Parainfluen 3 PCR NOT DETECTED 10/03/20 21:26 Nasal Parainfluen 4 PCR NOT DETECTED 10/03/20 21:26 Nasal RSV (PCR) NOT DETECTED 10/03/20 21:26 Nasal B.pertussis DNA PCR NOT DETECTED 10/03/20 21:26 Nasal C.pneumoniae (PCR) NOT DETECTED 10/03/20 21:26 Tyler Human Metapneumo PCR NOT DETECTED 10/03/20 21:26 Nasal M.pneumoniae (PCR) NOT DETECTED 10/03/20 21:26 Nasal SARS-CoV-2 (PCR) NOT DETECTED 10/03/20 21:26 Last Dose Date 10/07/20 10/08/20 06:30 Last Dose Time 1600 10/08/20 06:30 Vancomycin Trough 21.3 ug/mL (10.0-20.0) H 10/08/20 06:30 Urine Opiates Screen POSITIVE (NEGATIVE) H 10/03/20 23:15 Ur Oxycodone Screen NEGATIVE (NEGATIVE) 10/03/20 23:15 Urine Methadone Screen NEGATIVE (NEGATIVE) 10/03/20 23:15 Ur Propoxyphene Screen NEGATIVE (NEGATIVE) 10/03/20 23:15 Ur Barbiturates Screen NEGATIVE (NEGATIVE) 10/03/20 23:15 Ur Tricyclics Screen NEGATIVE (NEGATIVE) 10/03/20 23:15 Ur Phencyclidine Scrn NEGATIVE (NEGATIVE) 10/03/20 23:15 Ur Amphetamine Screen NEGATIVE (NEGATIVE) 10/03/20 23:15 U Methamphetamines Scrn NEGATIVE (NEGATIVE) 10/03/20 23:15 U Benzodiazepines Scrn NEGATIVE (NEGATIVE) 10/03/20 23:15 Urine Cocaine Screen NEGATIVE (NEGATIVE) 10/03/20 23:15 U Cannabinoids Screen NEGATIVE (NEGATIVE) 10/03/20 23:15 Ethyl Alcohol < 5.0 mg/dL 10/03/20 19:47 - Procedures Procedures: Procedures DETACHMENT AT RIGHT LOWER LEG, HIGH, OPEN APPROACH (08/18/17) TRANSFUSE NONAUT RED BLOOD CELLS IN PERIPH VEIN, PERC (08/18/17) Sepsis Event Note (H) - Evaluation Current Stage of Sepsis: Resolved Possible source of Sepsis: positive: Genitourinary - Sepsis Criteria Sepsis Criteria: Recorded Temperature greater than 38.3C or Less than 36C, Recorded Respiratory Rate greater than 20, PROPERTY HANDLER: altered consciousness (unrelated to primary neuro pathology), Metabolic: lactate > 2 mmol/L
[2020-10-12] MEDS: ATORVASTATIN 10 MG TABLET PO SCH (21:29)
[2020-10-12] MEDS: DULoxetine 30 MG CAPSULE PO SCH (21:30)
[2020-10-12] MEDS: diphenhydrAMINE 25 MG CAPSULE PO PRN (21:37)
[2020-10-13] MEDS: ACETAMINOPHEN 325 MG TABLET PO PRN (00:46)
[2020-10-13] MEDS: AMPICILLIN 2 GM in SODIUM CHLORIDE 0.9% MINIBAG 100 ML IV SCH ×4 (00:46→12:36)
[2020-10-13] MEDS: SODIUM CHLORIDE FLUSH 0.9% 10 ML SYRINGE IVP SCH ×2 (00:46→08:41)
[2020-10-13] MEDS: oxyCODONE 5 MG TABLET PO PRN (01:33)
[2020-10-13] MEDS: GABAPENTIN 300 MG CAPSULE PO SCH ×2 (08:04→14:37)
[2020-10-13] MEDS: PRENATAL VITAMIN TABLET PO SCH (08:05)
[2020-10-13] MEDS: INSULIN ASPART 300 UNIT/3 ML PEN SUBQ SCH ×2 (08:05→11:56)
[2020-10-13] MEDS: THIAMINE 100 MG TABLET PO SCH (08:05)
[2020-10-13] MEDS: DOCUSATE SODIUM 250 MG CAPSULE PO SCH (08:34)
[2020-10-13] MEDS: carvediloL 12.5 MG TABLET PO SCH (08:35)
[2020-10-13] MEDS: ASPIRIN EC 81 MG TABLET PO SCH (08:35)
[2020-10-13] MEDS: LOSARTAN 50 MG TABLET PO SCH (08:35)
[2020-10-13] MEDS: polyethylene glycoL 3350 17 GM PACKET PO SCH (08:35)
[2020-10-13] MEDS: TAMSULOSIN 0.4 MG CAPSULE PO SCH (08:35)
[2020-10-13] MEDS: FUROSEMIDE 40 MG TABLET PO SCH (08:35)
[2020-10-13] MEDS: INSULIN GLARGINE 300 UNIT/3 ML PEN SUBQ SCH (08:41)
[2020-10-13] MEDS: NYSTATIN POWDER 15 GM TOP SCH (08:41)
[2020-10-13] MEDS: HEPARIN 5,000 UNIT/ML VIAL SUBQ SCH (08:43)
--- NOTE | 2020-10-13 13:30 | Discharge Plan ---
"Discharge Plan for SNF / [facility] - Discharge Plan And Transition Orders Problem Reviewed?: Yes Disposition: 03 SNF DC/Xfer Condition: Stable Allergies and Adverse Reactions: Allergies Allergy/AdvReac Type Severity Reaction Status Date / Time pregabalin [From Lyrica] Allergy Intermediate unknown Verified 10/03/20 18:57 simvastatin [From Zocor] Allergy Intermediate Nausea Verified 10/03/20 18:57 sulfamethoxazole Allergy Intermediate unknown Verified 10/03/20 18:57 [From Septra] trimethoprim [From Septra] Allergy Intermediate unknown Verified 10/03/20 18:57 tetracycline [Tetracycline] Allergy Rash Verified 10/03/20 18:57 Health Concerns: Admitted with confusion, fever and found to have UTI, bacteremia, recurrent acute urinary retention. IV antibiotics started and need several more days. Plan of Treatment: Finish course of iv antibiotics in swing bed status. Care Goals: Improvement in symptoms and stabilization are the goals. Assessment: The patient understands and is agreeable with the plan. - SNF / [facility] Transition Orders Admit to (Facility): [facility] Swing Bed Under the care of (Name): Dr Machado Discharge Diagnosis: 1) Enterococcus bacteremia 2) Enterococcus UTI with hematuria 3) Urinary retention 4) Chronic indwelling Mahan 5) IDDM 6) R BKA 7) Hx alcohol abuse 8) Hx CAD Medicare Certification Statement: I certify that Post Hospital fdc care is medically necessary on a continuing basis for any of the conditions for which she/he is receiving care during hospitalization. Notify PCP of admission and forward orders to primary provider for signature. Weight on admission and: Weekly Other Notification Orders: Call PCP immediately if patient develops dyspnea, chest pain/tightness or edema. House Bowel Program: Yes Additional Bowel Program Orders: If no BM after 2 days, nurse may give M.O.M. 30ml PO PRN and/or ducolax Supp 1 NV and/or MIGUEL 250mg P.O., and/or senna 1-2 tabs PO. On day 3 nurse may give repeat above order until residents constipation is resolved. Annual Influenza Vaccine (between Nov 30 and June 29): Yes Two-step PPD per [facility] [phone] or approved exception documents: Yes Treatments & Other Orders: iv antibiotics Medication Orders: PLEASE REFER TO THE DISCHARGE MEDICATION LIST. Insulin Orders?: Yes - Diet Type: Geriatric Texture: Regular - Therapies | Activity Activity: Activity as Tolerated"
[2020-10-13 13:53] VITALS: BP 140/74
--- NOTE | 2020-10-13 18:15 | DISCHARGE SUMMARY ---
Discharge Summary Admit Date: 10/03/20 Discharge Date: 10/13/20 Discharging Provider: Dr Tiara Machado Condition at Discharge: Stable Discharge Disposition: [address] 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 He had been admitted several days ago with an episode of syncope after alcohol binging, and when EMS was called and he had a documented blood pressure at the scene of 70/40. He was treated for dehydration, intoxication, did not go through alcohol withdrawal, developed urinary retention and required straight caths x2 then finally a Mahan insertion which was complicated with several days of hematuria. He wanted the Mahan removed before he was discharged. He was therefore started on Flomax, did have removal of the Mahan and was able to urinate adequately and was discharged home yesterday. Today he became more confused, spiked a temperature of 38.9 degrees C, and complained of a cough and shortness of breath. More details were not available because he was encephalopathic in the ED and could not give more descriptions. His serum tox showed no alcohol present. A Chest x-ray shows pulmonary edema versus atypical diffuse pneumonia but he is not desaturating. He received broad spectrum antibiotics in the ED, for a presumed Health-care associated pneumonia and [facility] was contacted for admission for sepsis with metabolic encephalopathy. He is again having urinary retention and feels fullness in his lower abdomen. A bladder scan shows 800+ cc of fluid. He is agreeable to have a Mahan inserted. Because of no urine output there has been no urinalysis done, to know if his sepsis has a urinary source or pulmonary source. - HOSPITAL COURSE Hospital Course: (1) Bacteremia due to Enterococcus He iwas admitted and started on empiric iv antibiotics, and cultures quickly turned pos. He was treated for Enterococcus bacteremia and the plan is for 2 total weeks of IV antibiotics, thus 1 more week via a PICC line, at a SNF. His IV ampicillin every 4 hours is to be continued. (2) Complicated UTI The UTI caused bacteremia and was associated with obstruction. (3) Urinary retention with incomplete bladder emptying This was a problem starting on the previous recent admission, from which he was home only 1 day, then readmitted now. He needed Mahan insertion on the last admission, but demanded that that it being removed before discharge. When he presented on this admission he was uncomfortable from a distended urinary bladder and again needed a Mahan insertion. Flomax had been started as well and was continued. He had intermittent hematuria possibly from instrumentation but also from the acute cystitis. He was discharged to SNF with a chronic Mahan and he needs urology outpatient management. (4) Acute kidney injury superimposed on chronic kidney disease Resolved with iv fluid hydration. (5) Insulin dependent diabetes mellitus At home, he was taking Lantus 110 U sq bid, but admitted to following no diabetic diet. His Lantus needs were substantially less here and he was cont inued on SS insulin coverage and Lantus insulin just once daily and carb controlled diet (6) Anemia Chronic but stable Hgb of 9-10, even with intermittent hematuria (7) Thrombocytopenia Chronic and was felt to be related to his alcohol abuse. (8) Hx of coronary artery disease As per history. (9) PVD (peripheral vascular disease) As per history. (10) Hx of right BKA As per history. (11) Metabolic encephalopathy Mental status improved quickly with treatment of infection (12) Hyponatremia Resolved with iv saline replacement (13) Hyperkalemia Resolved with replacement (14) Hx of alcohol abuse The last recent admission was for binging, which caused and dehydration. - ALLERGIES Allergies/Adverse Reactions: Allergies Allergy/AdvReac Type Severity Reaction Status Date / Time pregabalin [From Lyrica] Allergy Intermediate unknown Verified 10/03/20 18:57 simvastatin [From Zocor] Allergy Intermediate Nausea Verified 10/03/20 18:57 sulfamethoxazole Allergy Intermediate unknown Verified 10/03/20 18:57 [From Septra] trimethoprim [From Septra] Allergy Intermediate unknown Verified 10/03/20 18:57 tetracycline [Tetracycline] Allergy Rash Verified 10/03/20 18:57 - MEDICATIONS Home Medications: Ambulatory Orders Medication Instructions Recorded Confirmed Loratadine 10 mg PO DAILY 11/07/12 10/14/20 Aspirin [Aspirin EC] 81 mg PO DAILY #30 tablet. 08/26/17 10/14/20 Atorvastatin [Lipitor] 40 mg PO DAILY PM #30 08/26/17 10/14/20 Omeprazole [PriLOSEC] 20 mg PO DAILY #30 08/26/17 10/14/20 Spironolactone [Aldactone] 25 mg PO DAILY #30 tablet 08/26/17 10/14/20 carvediloL [Coreg] 25 mg PO BID #60 08/26/17 10/14/20 Furosemide 40 mg PO BID 12/30/17 10/14/20 Gabapentin [Neurontin] 300 mg PO TID 06/01/18 10/14/20 Losartan [Cozaar] 50 mg PO DAILY 06/01/18 10/14/20 Insulin Glargine [Lantus Solostar] 110 unit SUBQ BID 10/02/20 10/14/20 Tamsulosin [Flomax] 0.4 mg PO DAILY 30 Days #30 cap 10/02/20 10/14/20 Ascorbic Acid [Vitamin C] 500 mg PO DAILY 10/05/20 10/14/20 Duloxetine HCl [Cymbalta] 60 mg PO HS 10/05/20 10/14/20 Multivitamin 1 tab PO HS 10/05/20 10/14/20 - PHYSICAL EXAM AT DISCHARGE General Appearance: positive: No acute distress, Alert, Other (Male pattern baldness) Eyes Bilateral: positive: Normal inspection, EOMI ENT: positive: ENT inspection nml, No signs of dehydration Neck: positive: Nml inspection, No JVD Respiratory: positive: No respiratory distress, Breath sounds nml Cardiovascular: positive: Regular rate & rhythm, No murmur (Distant heart sounds due to large breasts.) Abdomen: positive: Other (Obese with a pannus, distant bowel sounds, cannot R/O organomegaly.) Skin: positive: Warm, Dry, Pallor Extremities: positive: Other (R BKA, Left leg has venous stasis changes.) Neurologic/Psychiatric: positive: Oriented x3 (Non-focal grossly.) - LABS Result Diagrams: 10/12/20 05:05 10/12/20 05:05 - DIAGNOSTIC IMAGING Diagnostic Imaging Results: Final report reviewed - SEPSIS Current Stage of Sepsis: Resolved Possible source of Sepsis: Genitourinary Sepsis Criteria: Recorded Temperature greater than 38.3C or Less than 36C, Recorded Respiratory Rate greater than 20, CHERRY PITTER: altered consciousness (unrelated to primary neuro pathology), Metabolic: lactate > 2 mmol/L - FOLLOW UP Follow Up: He is being discharged to SNF (at [facility] in swing bed status) and follow- up will be determined after that entire stay. - TIME SPENT Time Spent in Discharge (Minutes): 60
== END 2020-10-13 15:37 | DRG 871 ==
LOC: EDUNIT# → ED 18:50 → SUPCPDRO 18:50 → MS2 21:02
PROVIDERS: ADMIT Internal Medicine; ATTEND Internal Medicine
PROC: 02HV33Z Insertion of Infusion Device into Superior Vena Cava, Percutaneous Approach (ICD-10-PCS; principal; 2020-10-10)
DX: A41.9 Sepsis, unspecified organism (principal); A41.81 Sepsis due to Enterococcus; G93.41 Metabolic encephalopathy; Z20.822 Contact with and (suspected) exposure to COVID-19; I10 Essential (primary) hypertension; E78.00 Pure hypercholesterolemia, unspecified; J18.9 Pneumonia, unspecified organism; N17.9 Acute kidney failure, unspecified; E87.1 Hypo-osmolality and hyponatremia; N30.91 Cystitis, unspecified with hematuria; Z89.9 Acquired absence of limb, unspecified; R65.20 Severe sepsis without septic shock; Y95 Nosocomial condition; E11.22 Type 2 diabetes mellitus with diabetic chronic kidney disease; N18.9 Chronic kidney disease, unspecified; Z79.4 Long term (current) use of insulin; D64.9 Anemia, unspecified; D69.6 Thrombocytopenia, unspecified; I25.10 Atherosclerotic heart disease of native coronary artery without angina pectoris; E11.51 Type 2 diabetes mellitus with diabetic peripheral angiopathy without gangrene; Z89.511 Acquired absence of right leg below knee; E87.5 Hyperkalemia; E66.9 Obesity, unspecified; Z68.31 Body mass index [BMI] 31.0-31.9, adult; R33.9 Retention of urine, unspecified; R35.1 Nocturia; R35.0 Frequency of micturition; Z95.5 Presence of coronary angioplasty implant and graft; Z87.891 Personal history of nicotine dependence; F10.10 Alcohol abuse, uncomplicated; I25.2 Old myocardial infarction; E11.42 Type 2 diabetes mellitus with diabetic polyneuropathy; I87.8 Other specified disorders of veins; R10.9 Unspecified abdominal pain; N20.0 Calculus of kidney; K80.20 Calculus of gallbladder without cholecystitis without obstruction; K59.00 Constipation, unspecified; I12.9 Hypertensive chronic kidney disease with stage 1 through stage 4 chronic kidney disease, or unspecified chronic kidney disease
CPT/HCPCS: 36415; 36556; 51700; 71045; 74176; 76700; 80048; 80053; 80076; 80202; 80306; 81001; 82272; 82550; 82607; 82728; 82746; 83036; 83540; 83605; 83735; 83880; 84466; 85025; 85610; 86140; 87040; 87077; 87086; 87150; 87181; 87631; 91300; 93306; 96365; 96368; 99285; 99291; A9270; G0480; J1815; J3370; J7120; 0202U; 80320

== ENCOUNTER 2020-10-13 08:42 | Inpatient (IN) | payer MEDICARE, OTHER ==
[2020-10-13] MEDS ORDERED: SODIUM CHLORIDE FLUSH 0.9% 10 ML SYRINGE IVP PRN (14:07)
[2020-10-13] MEDS: GABAPENTIN 300 MG CAPSULE PO SCH ×2 (16:49→21:06)
[2020-10-13] MEDS: AMPICILLIN 2 GM in SODIUM CHLORIDE 0.9% MINIBAG 100 ML IV SCH ×2 (16:52→21:05)
[2020-10-13] MEDS: INSULIN ASPART 300 UNIT/3 ML PEN SUBQ SCH (17:03)
[2020-10-13] MEDS ORDERED: GABAPENTIN 400 MG CAPSULE PO SCH (21:00)
[2020-10-13] MEDS ORDERED: INSULIN GLARGINE 300 UNIT/3 ML PEN SUBQ SCH (21:00)
[2020-10-13] MEDS: ATORVASTATIN 40 MG TABLET PO SCH (21:06)
[2020-10-13] MEDS: NYSTATIN POWDER 15 GM TOP SCH (21:06)
[2020-10-13] MEDS: DULoxetine 30 MG CAPSULE PO SCH (21:06)
[2020-10-13] MEDS: carvediloL 12.5 MG TABLET PO SCH (21:06)
[2020-10-14] MEDS: AMPICILLIN 2 GM in SODIUM CHLORIDE 0.9% MINIBAG 100 ML IV SCH ×6 (00:38→22:16)
[2020-10-14] MEDS: PANTOPRAZOLE 40 MG TABLET PO SCH (06:03)
--- NOTE | 2020-10-14 07:42 | HISTORY & PHYSICAL EXAMINATION ---
Chief Complaint - Chief Complaint Chief Complaint: Constipated, wants more to eat then carb 4, needs oxycodone restarted History of Present Illness - Admitted From Admitted From:: [facility] - History of Present Illness HPI Comment/Other: This is a 75-year-old WM with history of obesity, insulin-dependent diabetes, noncompliance with medications, alcohol abuse and binging, CAD, PVD with right BKA, hypertension, CKD. He was admitted with a fever, confusion and rigors 1 day after being discharged from the hospital. That prior admission was for syncope when he was hypotensive, intoxicated, developed no alcohol withdrawal but acute urinary retention and needed a Mahan inserted. Flomax was started and the Mahan was removed, but needed to be reinserted for urinary retention. He demanded that it be removed before discharge and it was. He came back 24 hours later with rigors, high WBC and the source was a UTI. He grew Enterococcus in the urine and blood cultures. He has been on IV ampicillin based on sensitivities. The plan is for a 2-week course of antibiotics and he has completed approximately a week so far. He is being admitted to SNF at [facility] for finishing his IV course of antibiotics. Him he is complaining of constipation, reminds me he needs his narcotic meds restarted for chronic pain and also wishes he could have a more liberal diet. His insulin dose used to be 110 units subcu twice daily when he followed no diabetic diet at home and since his 2 admissions now he is down to insulin 70 units once a day and is ordered to be on a carb controlled diet. Patient would like to be a full code. History - Past Medical History Cardiovascular: reports: Hypertension, High cholesterol, Coronary artery disease, Peripheral Vascular Disease, [place] Respiratory: reports: COPD, Shortness of breath Neuro: reports: Peripheral neuropathy Endocrine/Autoimmune: reports: Type 2 diabetes GI: reports: GERD : reports: Nocturia, Frequency, Kidney stones Psych: reports: Anxiety, Panic attacks Musculoskeletal: reports: Fibromyalgia, Chronic back pain MRSA Hx?: No - Past Surgical History Ortho: reports: Amputation Cardiovascular: reports: Coronary stent HEENT: reports: Cataracts - Family & Social History Family History: Mother: , Diabetes, Type 2, Father: , CAD Living Situation: With spouse/s.o., With caregiver(s) (A 50 y/o male lives with them, helps around the house and caregiving.) Social History Notes: The patient lives in [place] with his who has Alzheimer's dementia. He states that he is the primary caregiver for his . He is retired. He quit smoking in 2002 prior to that he was a pack-a-day smoker for close to 40 years. He states that he does continue to drink but has cut johnathan n on his drinking recently. He has used marijuana to try to deal with his pain. He denies any other illicit drug use. - Substance History Use: Uses substance without health or social issues: Other (No cigarette use for 17 years.) - POLST Patient has POLST: No POLST Status: Full Code Meds/Allgy - Home Medications Home Medications: Ambulatory Orders Medication Instructions Recorded Confirmed Loratadine 10 mg PO DAILY 11/07/12 10/14/20 Aspirin [Aspirin EC] 81 mg PO DAILY #30 tablet. 08/26/17 10/14/20 Atorvastatin [Lipitor] 40 mg PO DAILY PM #30 08/26/17 10/14/20 Omeprazole [PriLOSEC] 20 mg PO DAILY #30 08/26/17 10/14/20 Spironolactone [Aldactone] 25 mg PO DAILY #30 tablet 08/26/17 10/14/20 carvediloL [Coreg] 25 mg PO BID #60 08/26/17 10/14/20 Furosemide 40 mg PO BID 12/30/17 10/14/20 Gabapentin [Neurontin] 300 mg PO TID 06/01/18 10/14/20 Losartan [Cozaar] 50 mg PO DAILY 06/01/18 10/14/20 Insulin Glargine [Lantus Solostar] 110 unit SUBQ BID 10/02/20 10/14/20 Tamsulosin [Flomax] 0.4 mg PO DAILY 30 Days #30 cap 10/02/20 10/14/20 Ascorbic Acid [Vitamin C] 500 mg PO DAILY 10/05/20 10/14/20 Duloxetine HCl [Cymbalta] 60 mg PO HS 10/05/20 10/14/20 Multivitamin 1 tab PO HS 10/05/20 10/14/20 - Allergies Allergies/Adverse Reactions: Allergies Allergy/AdvReac Type Severity Reaction Status Date / Time pregabalin [From Lyrica] Allergy Intermediate unknown Verified 10/03/20 18:57 simvastatin [From Zocor] Allergy Intermediate Nausea Verified 10/03/20 18:57 sulfamethoxazole Allergy Intermediate unknown Verified 10/03/20 18:57 [From Septra] trimethoprim [From Septra] Allergy Intermediate unknown Verified 10/03/20 18:57 tetracycline [Tetracycline] Allergy Rash Verified 10/03/20 18:57 Review of Systems - Gastrointestinal Gastrointestinal: reports: Constipation - Musculoskeletal Musculoskeletal: reports: Back pain, Joint pain (L wrist) - All Other Systems All Other Systems: reports: Other (PVD and needed R BKA for chronic osteo) Exam - Vital Signs Reviewed Vital Signs: Yes - Physical Exam General Appearance: positive: No acute distress, Alert Eyes Bilateral: positive: Normal inspection, EOMI ENT: positive: ENT inspection nml, No signs of dehydration Neck: positive: Nml inspection, No JVD Respiratory: positive: No respiratory distress, Breath sounds nml Cardiovascular: positive: Regular rate & rhythm, No murmur Abdomen: positive: Non-tender, No distention, Other (Obese with a pannus) Skin: positive: Warm, Dry Extremities: positive: Other (R BKA, L leg has venous stasis of the vera and trace edema) Neurologic/Psychiatric: positive: Oriented x3 (Non-focal) Conclusion/Plan - Problem List (1) Bacteremia due to Enterococcus Conclusion/Plan: Will continue iv antibx for a complete 2 week course, using Amp 1v q4h. (2) Complicated UTI (urinary tract infection) Conclusion/Plan: As per presentation and likely was related to new need for Mahan, which needed to be reinserted 3 times a week ago. This was the cause of his bacteremia He has intermittent hematuria asz well. (3) Urinary retention with incomplete bladder emptying Conclusion/Plan: At the last recent admission, the patient needed to stay longer because he developed acute urinary retention and a Mahan was placed. Flomax was started and the Mahan removed. He again needed the Mahan for retention. The patient wanted the Mahan removed before he left. This was done and the patient was home for 1 day, developed rigors and was readmitted now with sepsis and also has acute urinary retention again on this admission as well. Continue with chronic indwelling Mahan and Mahan care. The patient needs urology management soon as an outpatient, since we have no urol specialists here. Continue Flomax (4) Diabetes Conclusion/Plan: Before this last hospital stay the patient was taking Lantus 110 mg subcu twice daily, never did fingerstick checks, ate anything in his diet. Since being admitted this last 2 times on a carb controlled diet he has only needed insulin once a day and is down to 70 units a day. The patient requests "more to eat". Will liberalize his carb controlled diet from 4-5 and continue the snack Continue carb-contr diet , Lantus and ss Insulin Qualifiers: (5) PVD (peripheral vascular disease) Conclusion/Plan: As per Hx Continue his Asa and other meds (6) Hx of right BKA Conclusion/Plan: As per Hx. He is able to transfer self, using upper extremities from bed to chair. (7) Constipation Conclusion/Plan: This may be due to getting narcotics for pain here. Will advance the bowel protocol. (8) Chronic pain Conclusion/Plan: Will restart his opiates prn (9) History of alcohol abuse Conclusion/Plan: On the last recent admission he was intoxicated and dehydrated. We will continue with daily oral thiamine here. - Diagnostic Imaging Results Diagnostic Imaging Results: positive: Final report reviewed
[2020-10-14] MEDS: INSULIN ASPART 300 UNIT/3 ML PEN SUBQ SCH ×3 (07:50→17:00)
[2020-10-14] MEDS: GABAPENTIN 300 MG CAPSULE PO SCH ×3 (07:50→22:17)
[2020-10-14] MEDS: PRENATAL VITAMIN TABLET PO SCH (07:50)
[2020-10-14] MEDS: NYSTATIN POWDER 15 GM TOP SCH (08:43)
[2020-10-14] MEDS: DOCUSATE SODIUM 250 MG CAPSULE PO SCH (08:43)
[2020-10-14] MEDS: SPIRONOLACTONE 25 MG TABLET PO SCH (08:43)
[2020-10-14] MEDS: THIAMINE 100 MG TABLET PO SCH (08:43)
[2020-10-14] MEDS: carvediloL 12.5 MG TABLET PO SCH ×2 (08:43→22:17)
[2020-10-14] MEDS: LOSARTAN 50 MG TABLET PO SCH (08:43)
[2020-10-14] MEDS: ASPIRIN EC 81 MG TABLET PO SCH (08:43)
[2020-10-14] MEDS: TAMSULOSIN 0.4 MG CAPSULE PO SCH (08:43)
[2020-10-14] MEDS: FUROSEMIDE 40 MG TABLET PO SCH (08:43)
[2020-10-14] MEDS: polyethylene glycoL 3350 17 GM PACKET PO PRN (08:46)
[2020-10-14] MEDS ORDERED: INSULIN GLARGINE 300 UNIT/3 ML PEN SUBQ SCH (09:00)
[2020-10-14] MEDS ORDERED: NON FORMULARY MED (Multivitamin [Multivitamin] 1 EACH Tablet) PO SCH (09:00)
[2020-10-14] MEDS: ACETAMINOPHEN 325 MG TABLET PO PRN ×2 (10:07→17:13)
--- NOTE | 2020-10-14 13:59 | PHARMACY PROGRESS NOTE ---
- Best Possible Medication History Admit Date and Time: 10/13/20 1542 Processed by: Nursing Medication History completed: Yes Patient Interview: Completed (MED REC COMPLETED BY NURSING. SWING BED PATIENT- MED REC TRANSFERRED FROM PREVIOUS ACCT) As the person ultimately responsible for medication therapy, providers are able to order a medication from an existing home medication list in [facility] via the "Reconcile Routine" prior to Confirmation of that medication by phlebotomy support tech. Such practice is discouraged except when the physician, in their clinical judgment, deems that a medical need exists for a medication without regard to previous use.
[2020-10-14] MEDS: oxyCODONE 5 MG TABLET PO PRN ×2 (17:12→22:08)
[2020-10-14] MEDS: ATORVASTATIN 40 MG TABLET PO SCH (22:09)
[2020-10-14] MEDS: DULoxetine 30 MG CAPSULE PO SCH (22:10)
[2020-10-15] MEDS: NYSTATIN POWDER 15 GM TOP SCH ×3 (01:26→21:45)
[2020-10-15] MEDS: AMPICILLIN 2 GM in SODIUM CHLORIDE 0.9% MINIBAG 100 ML IV SCH ×6 (01:35→21:44)
[2020-10-15] MEDS: ACETAMINOPHEN 325 MG TABLET PO PRN ×3 (01:39→12:43)
[2020-10-15] MEDS: oxyCODONE 5 MG TABLET PO PRN ×3 (01:39→12:43)
[2020-10-15] MEDS: ASPIRIN EC 81 MG TABLET PO SCH (06:04)
[2020-10-15] MEDS: THIAMINE 100 MG TABLET PO SCH (06:04)
[2020-10-15] MEDS: PANTOPRAZOLE 40 MG TABLET PO SCH (06:05)
[2020-10-15] MEDS: PRENATAL VITAMIN TABLET PO SCH (09:02)
[2020-10-15] MEDS: carvediloL 12.5 MG TABLET PO SCH ×2 (09:02→21:44)
[2020-10-15] MEDS: DOCUSATE SODIUM 250 MG CAPSULE PO SCH (09:03)
[2020-10-15] MEDS: GABAPENTIN 300 MG CAPSULE PO SCH ×3 (09:03→21:44)
[2020-10-15] MEDS: IBUPROFEN 400 MG TABLET PO PRN ×2 (09:04→15:00)
[2020-10-15] MEDS: LOSARTAN 50 MG TABLET PO SCH (09:04)
[2020-10-15] MEDS: SENNA 8.6 MG TABLET PO SCH ×4 (09:04→21:44)
[2020-10-15] MEDS: FUROSEMIDE 40 MG TABLET PO SCH (09:04)
[2020-10-15] MEDS: TAMSULOSIN 0.4 MG CAPSULE PO SCH (09:04)
[2020-10-15] MEDS: SPIRONOLACTONE 25 MG TABLET PO SCH (09:05)
[2020-10-15] MEDS: INSULIN ASPART 300 UNIT/3 ML PEN SUBQ SCH ×3 (09:06→17:23)
[2020-10-15] MEDS: INSULIN GLARGINE 300 UNIT/3 ML PEN SUBQ SCH (09:10)
[2020-10-15] MEDS: SODIUM CHLORIDE 0.9% 500 ML IV PRN (21:45)
[2020-10-15] MEDS: DULoxetine 30 MG CAPSULE PO SCH (21:45)
[2020-10-15] MEDS: ATORVASTATIN 40 MG TABLET PO SCH (21:45)
[2020-10-16] MEDS: AMPICILLIN 2 GM in SODIUM CHLORIDE 0.9% MINIBAG 100 ML IV SCH ×6 (00:05→20:48)
[2020-10-16] MEDS: ACETAMINOPHEN 325 MG TABLET PO PRN ×3 (06:35→20:54)
[2020-10-16] MEDS: oxyCODONE 5 MG TABLET PO PRN ×2 (06:35→20:54)
[2020-10-16] MEDS: PANTOPRAZOLE 40 MG TABLET PO SCH (06:35)
[2020-10-16] MEDS: polyethylene glycoL 3350 17 GM PACKET PO PRN (06:36)
[2020-10-16] MEDS: PRENATAL VITAMIN TABLET PO SCH (07:40)
[2020-10-16] MEDS: INSULIN ASPART 300 UNIT/3 ML PEN SUBQ SCH ×3 (07:40→16:33)
[2020-10-16] MEDS: GABAPENTIN 300 MG CAPSULE PO SCH ×3 (07:40→20:48)
[2020-10-16] MEDS: DOCUSATE SODIUM 250 MG CAPSULE PO SCH (08:33)
[2020-10-16] MEDS: ASPIRIN EC 81 MG TABLET PO SCH (08:33)
[2020-10-16] MEDS: SPIRONOLACTONE 25 MG TABLET PO SCH (08:34)
[2020-10-16] MEDS: THIAMINE 100 MG TABLET PO SCH (08:34)
[2020-10-16] MEDS: LOSARTAN 50 MG TABLET PO SCH (08:34)
[2020-10-16] MEDS: carvediloL 12.5 MG TABLET PO SCH ×2 (08:34→20:48)
[2020-10-16] MEDS: NYSTATIN POWDER 15 GM TOP SCH ×2 (08:34→20:58)
[2020-10-16] MEDS: TAMSULOSIN 0.4 MG CAPSULE PO SCH (08:34)
[2020-10-16] MEDS: FUROSEMIDE 40 MG TABLET PO SCH (08:34)
[2020-10-16] MEDS: INSULIN GLARGINE 300 UNIT/3 ML PEN SUBQ SCH (08:35)
[2020-10-16] MEDS: IBUPROFEN 400 MG TABLET PO PRN (11:59)
[2020-10-16] MEDS: ATORVASTATIN 40 MG TABLET PO SCH (20:48)
[2020-10-16] MEDS: DULoxetine 30 MG CAPSULE PO SCH (20:48)
[2020-10-17] MEDS: AMPICILLIN 2 GM in SODIUM CHLORIDE 0.9% MINIBAG 100 ML IV SCH ×6 (01:02→21:25)
[2020-10-17] MEDS: ACETAMINOPHEN 325 MG TABLET PO PRN ×4 (01:03→21:25)
[2020-10-17] MEDS: oxyCODONE 5 MG TABLET PO PRN ×4 (01:03→21:27)
[2020-10-17] MEDS: IBUPROFEN 400 MG TABLET PO PRN ×3 (02:25→15:58)
[2020-10-17] MEDS: diphenhydrAMINE 25 MG CAPSULE PO PRN (02:25)
[2020-10-17] MEDS: ZINC OXIDE 20% OINT 30 GM TUBE TOP PRN ×2 (02:26→21:26)
[2020-10-17] MEDS: PANTOPRAZOLE 40 MG TABLET PO SCH (06:26)
[2020-10-17] MEDS: PRENATAL VITAMIN TABLET PO SCH (08:23)
[2020-10-17] MEDS: ASPIRIN EC 81 MG TABLET PO SCH (08:23)
[2020-10-17] MEDS: GABAPENTIN 300 MG CAPSULE PO SCH ×3 (08:23→21:26)
[2020-10-17] MEDS: FUROSEMIDE 40 MG TABLET PO SCH (08:24)
[2020-10-17] MEDS: TAMSULOSIN 0.4 MG CAPSULE PO SCH (08:24)
[2020-10-17] MEDS: THIAMINE 100 MG TABLET PO SCH (08:24)
[2020-10-17] MEDS: LOSARTAN 50 MG TABLET PO SCH (08:26)
[2020-10-17] MEDS: SPIRONOLACTONE 25 MG TABLET PO SCH (08:26)
[2020-10-17] MEDS: DOCUSATE SODIUM 250 MG CAPSULE PO SCH (08:31)
[2020-10-17] MEDS: carvediloL 12.5 MG TABLET PO SCH ×2 (08:31→21:26)
[2020-10-17] MEDS: INSULIN ASPART 300 UNIT/3 ML PEN SUBQ SCH ×3 (08:35→16:50)
[2020-10-17] MEDS: INSULIN GLARGINE 300 UNIT/3 ML PEN SUBQ SCH (08:36)
[2020-10-17] MEDS: NYSTATIN POWDER 15 GM TOP SCH ×2 (16:06→21:26)
[2020-10-17] MEDS: DULoxetine 30 MG CAPSULE PO SCH (21:26)
[2020-10-17] MEDS: ATORVASTATIN 40 MG TABLET PO SCH (21:27)
[2020-10-18] MEDS: AMPICILLIN 2 GM in SODIUM CHLORIDE 0.9% MINIBAG 100 ML IV SCH ×6 (00:46→20:28)
[2020-10-18] MEDS: ACETAMINOPHEN 325 MG TABLET PO PRN ×5 (00:54→20:29)
[2020-10-18] MEDS: diphenhydrAMINE 25 MG CAPSULE PO PRN ×3 (00:54→18:35)
[2020-10-18] MEDS: oxyCODONE 5 MG TABLET PO PRN ×5 (00:59→20:29)
[2020-10-18] MEDS: PANTOPRAZOLE 40 MG TABLET PO SCH (06:11)
[2020-10-18] MEDS: GABAPENTIN 300 MG CAPSULE PO SCH ×3 (08:14→20:30)
[2020-10-18] MEDS: IBUPROFEN 400 MG TABLET PO PRN ×2 (08:14→18:35)
[2020-10-18] MEDS: PRENATAL VITAMIN TABLET PO SCH (08:14)
[2020-10-18] MEDS: carvediloL 12.5 MG TABLET PO SCH ×2 (08:14→20:29)
[2020-10-18] MEDS: ASPIRIN EC 81 MG TABLET PO SCH (08:14)
[2020-10-18] MEDS: FUROSEMIDE 40 MG TABLET PO SCH (08:15)
[2020-10-18] MEDS: LOSARTAN 50 MG TABLET PO SCH (08:15)
[2020-10-18] MEDS: TAMSULOSIN 0.4 MG CAPSULE PO SCH (08:15)
[2020-10-18] MEDS: THIAMINE 100 MG TABLET PO SCH (08:15)
[2020-10-18] MEDS: NYSTATIN POWDER 15 GM TOP SCH ×2 (08:15→20:29)
[2020-10-18] MEDS: SPIRONOLACTONE 25 MG TABLET PO SCH (08:15)
[2020-10-18] MEDS: INSULIN GLARGINE 300 UNIT/3 ML PEN SUBQ SCH (08:16)
[2020-10-18] MEDS: INSULIN ASPART 300 UNIT/3 ML PEN SUBQ SCH ×3 (08:16→16:50)
[2020-10-18] MEDS: DOCUSATE SODIUM 250 MG CAPSULE PO SCH (08:22)
[2020-10-18] MEDS: SODIUM CHLORIDE 0.9% 500 ML IV PRN (14:30)
[2020-10-18] MEDS: DULoxetine 30 MG CAPSULE PO SCH (20:29)
[2020-10-18] MEDS: ATORVASTATIN 40 MG TABLET PO SCH (20:29)
[2020-10-19] MEDS: AMPICILLIN 2 GM in SODIUM CHLORIDE 0.9% MINIBAG 100 ML IV SCH ×5 (01:23→16:34)
[2020-10-19] MEDS: INSULIN GLARGINE 300 UNIT/3 ML PEN SUBQ SCH (08:20)
[2020-10-19] MEDS: oxyCODONE 5 MG TABLET PO PRN ×3 (08:20→16:35)
[2020-10-19] MEDS: carvediloL 12.5 MG TABLET PO SCH (08:20)
[2020-10-19] MEDS: DOCUSATE SODIUM 250 MG CAPSULE PO SCH (08:20)
[2020-10-19] MEDS: INSULIN ASPART 300 UNIT/3 ML PEN SUBQ SCH ×3 (08:20→17:14)
[2020-10-19] MEDS: GABAPENTIN 300 MG CAPSULE PO SCH ×2 (08:21→14:12)
[2020-10-19] MEDS: FUROSEMIDE 40 MG TABLET PO SCH (08:21)
[2020-10-19] MEDS: PRENATAL VITAMIN TABLET PO SCH (08:21)
[2020-10-19] MEDS: SPIRONOLACTONE 25 MG TABLET PO SCH (08:21)
[2020-10-19] MEDS: ASPIRIN EC 81 MG TABLET PO SCH (08:21)
[2020-10-19] MEDS: LOSARTAN 50 MG TABLET PO SCH (08:21)
[2020-10-19] MEDS: ACETAMINOPHEN 325 MG TABLET PO PRN ×3 (08:21→16:34)
[2020-10-19] MEDS: THIAMINE 100 MG TABLET PO SCH (08:21)
[2020-10-19] MEDS: TAMSULOSIN 0.4 MG CAPSULE PO SCH (08:21)
[2020-10-19] MEDS: NYSTATIN POWDER 15 GM TOP SCH (08:22)
[2020-10-19] MEDS ORDERED: SENNA 8.6 MG TABLET PO SCH (09:00)
[2020-10-19] MEDS ORDERED: polyethylene glycoL 3350 17 GM PACKET PO SCH (09:00)
--- NOTE | 2020-10-19 14:54 | Discharge Plan ---
Discharge Plan Problem Reviewed?: Yes Disposition: Home, Self Care Condition: Stable Diet: Diabetic Activity Restrictions: Activity as Tolerated Shower Restrictions: No Driving Restrictions: Yes (no driving) Assistance Devices: Wheelchair, Walker Instruction Topics: ED Bacteremia Rule Out, ED Retention Urinary Male Health Concerns: You were admitted to the hospital because of a severe urinary tract infection. The bacteria that caused a urinary tract fraction was resistant to all antibiotics that were by mouth. As such you had to stay in complete intravenous therapy. The reason you for tremor urinary tract infection is urinary retention from a large prostate. You are unable to completely void and empty your bladder. This leaves it easy for bacteria to then colonize and give you an infection in your bladder. You have had a Mahan catheter the entire time you have been here. This is due to urinary retention and inability to completely void. You have opted, at discharge, to remove the Mahan. You say that you are going to pull it out anyway. That is a dangerous thing for you to do. As such we have agreed to remove the Mahan before discharge but strongly protest. Plan of Treatment: You have completed intravenous antibiotic therapy. Please see your primary care provider in the next week or 2. They may want to consider giving you a referral to a urologist to see if you are a candidate for prostate surgery. Care Goals: To remain symptom-free of urinary retention, to not get another urinary tract infection Assessment: Patient states he will follow through with seeing Dr. Cabrales in the next 1 to 2 weeks No Smoking: If you smoke, Please STOP! Call for help. Follow-up with: Valeria Cabrales MD [Primary Care Provider] -
--- NOTE | 2020-10-19 15:20 | DISCHARGE SUMMARY ---
"Discharge Summary Admit Date: 10/14/20 Discharge Date: 10/19/20 Condition at Discharge: Stable Discharge Disposition: 01 Home, Self Care - DIAGNOSES Discharge Diagnoses with Status of Each Condition: 1. Enterococcal bacteremia 2. Complicated UTI with Enterococcus 3. Benign prostatic hypertrophy with lower urinary tract symptoms of retention 4. Urinary retention 5. Type 2 diabetes mellitus, controlled, with complications of neuropathy, on long-term insulin 6. Peripheral vascular disease 7. History of right BKA 8. Chronic constipation 9. Chronic pain syndrome 10. History of alcohol abuse - HPI History of Present Illness: This is a 75-year-old WM with history of obesity, insulin-dependent diabetes, noncompliance with medications, alcohol abuse and binging, CAD, PVD with right BKA, hypertension, CKD. Admitted September 28 for UTI and rigors. Discharge October 02. Readmitted October 03 with fever, confusions, rigors. Discharge October 13. Admitted to swing bed status October 13. The September 28 admission was for syncope when he was hypotensive, intoxicated, developed no alcohol withdrawal but acute urinary retention and needed a Mahan inserted. Flomax was started and the Mahan was removed, but needed to be reinserted for urinary retention. He demanded that it be removed before discharge and it was. He came back 24 hours later with rigors, high WBC and the source was a UTI. He grew Enterococcus in the urine and blood cultures. He has been on IV ampicillin based on sensitivities. The plan is for a 2-week course of antibiotics and he has completed approximately a week so far. He is being admitted to SNF at [facility] for finishing his IV course of antibiotics. He is complaining of constipation, reminds me he needs his narcotic meds restarted for chronic pain and also wishes he could have a more liberal diet. His insulin dose used to be 110 units subcu twice daily when he followed no diabetic diet at home and since his 2 admissions now he is down to insulin 70 units once a day and is ordered to be on a carb controlled diet. Patient would like to be a full code. - Past Medical History Cardiovascular: reports: Hypertension, High cholesterol, Coronary artery disease, Peripheral Vascular Disease, [place] Respiratory: reports: COPD, Shortness of breath Neuro: reports: Peripheral neuropathy Endocrine/Autoimmune: reports: Type 2 diabetes GI: reports: GERD : reports: Nocturia, Frequency, Kidney stones Psych: reports: Anxiety, Panic attacks Musculoskeletal: reports: Fibromyalgia, Chronic back pain MRSA Hx?: No - Past Surgical History Ortho: reports: Amputation Cardiovascular: reports: Coronary stent HEENT: reports: Cataracts - CONSULTS | PROCEDURES Procedures: Intravenous antibiotics with ampicillin - HOSPITAL COURSE Hospital Course: The patient was transitioned from acute care to swing bed status due to inability to safely discharge him to home. The logistics of sending him home, returning every day for ampicillin injection; sending him home to receive IV antibiotics: Or having the patient stay in swing bed status was discussed. The former to possibilities could not come to fruition. As such he completed his antibiotic therapy without any complications. At discharge the patient was adamant that he did not want a Mahan catheter. We explained to him that he had benign prostatic hypertrophy, incomplete bladder emptying due to that, and that his urinary tract infection will most likely come back again if he was unable to urinate. He stated that he did not care. That if we sent him home with a Mahan he was going to pull it out anyway. As such we reluctantly remove the Mahan at discharge. He is asked to please follow-up with his primary care provider, Dr. Cabrales. Hopefully she can send him for referral for urology evaluation. At discharge temperature is 36.8. Respirations 20. Blood pressure 171/87. Respirations 20. 96% saturated on room air. He is 5 foot 11 inches. Weighs 102 kg. Disheveled elderly gentleman who looks older than stated age. Shotty neck adenopathy. Coarse upper airway sounds but essentially clear without crackles rhonchi wheezing. No respiratory distress. PMI normally placed. Abdomen has normal bowel sounds, nontender, not distended. Right BKA stump is closed, healed. He is in stable condition. He is contacted his roommate to bring him home. During his stay he was controlled with short acting insulin. He received 2 units with meals as well as sliding scale. And was on Lantus 75 units daily. He states that he will most likely increase his diet once he gets home to eat the food that he likes. When he came into the hospital he was taking 110 units of Lantus. He states most likely he will return to that. Greater than 30 minutes was spent in discharging this patient not due to to a complicated course but rather a patient who required quite a bit of cajoling, explanation. We explained that we really rather have him keep the Mahan until he saw urology. That he had had the Mahan removed and that is when he returned with sepsis and a resistant bacteria before. He demanded the Mahan be discontinued and it was. - ALLERGIES Allergies/Adverse Reactions: Allergies Allergy/AdvReac Type Severity Reaction Status Date / Time pregabalin [From Lyrica] Allergy Intermediate unknown Verified 10/03/20 18:57 simvastatin [From Zocor] Allergy Intermediate Nausea Verified 10/03/20 18:57 sulfamethoxazole Allergy Intermediate unknown Verified 10/03/20 18:57 [From Septra] trimethoprim [From Septra] Allergy Intermediate unknown Verified 10/03/20 18:57 tetracycline [Tetracycline] Allergy Rash Verified 10/03/20 18:57 - MEDICATIONS Home Medications: Ambulatory Orders Medication Instructions Recorded Confirmed Loratadine 10 mg PO DAILY 11/07/12 10/14/20 Aspirin [Aspirin EC] 81 mg PO DAILY #30 tablet. 08/26/17 10/14/20 Atorvastatin [Lipitor] 40 mg PO DAILY PM #30 08/26/17 10/14/20 Omeprazole [PriLOSEC] 20 mg PO DAILY #30 08/26/17 10/14/20 Spironolactone [Aldactone] 25 mg PO DAILY #30 tablet 08/26/17 10/14/20 carvediloL [Coreg] 25 mg PO BID #60 08/26/17 10/14/20 Furosemide 40 mg PO BID 12/30/17 10/14/20 Gabapentin [Neurontin] 300 mg PO TID 06/01/18 10/14/20 Losartan [Cozaar] 50 mg PO DAILY 06/01/18 10/14/20 Insulin Glargine [Lantus Solostar] 110 unit SUBQ BID 10/02/20 10/14/20 Tamsulosin [Flomax] 0.4 mg PO DAILY 30 Days #30 cap 10/02/20 10/14/20 Ascorbic Acid [Vitamin C] 500 mg PO DAILY 10/05/20 10/14/20 Duloxetine HCl [Cymbalta] 60 mg PO HS 10/05/20 10/14/20 Multivitamin 1 tab PO HS 10/05/20 10/14/20"
[2020-10-19 20:09] VITALS: BP 149/79
== END 2020-10-19 18:20 | disposition home or self-care (01) | DRG 872 ==
LOC: MS2 15:42
PROVIDERS: ADMIT Internal Medicine; ATTEND Specialist
DX: R78.81 Bacteremia (principal); N39.0 Urinary tract infection, site not specified; T83.518D Infection and inflammatory reaction due to other urinary catheter, subsequent encounter; Y73.1 Therapeutic (nonsurgical) and rehabilitative gastroenterology and urology devices associated with adverse incidents; B95.2 Enterococcus as the cause of diseases classified elsewhere; N40.1 Benign prostatic hyperplasia with lower urinary tract symptoms; R33.8 Other retention of urine; R35.1 Nocturia; R35.0 Frequency of micturition; E11.42 Type 2 diabetes mellitus with diabetic polyneuropathy; E11.51 Type 2 diabetes mellitus with diabetic peripheral angiopathy without gangrene; E11.22 Type 2 diabetes mellitus with diabetic chronic kidney disease; I12.9 Hypertensive chronic kidney disease with stage 1 through stage 4 chronic kidney disease, or unspecified chronic kidney disease; N18.9 Chronic kidney disease, unspecified; I25.10 Atherosclerotic heart disease of native coronary artery without angina pectoris; G89.4 Chronic pain syndrome; K59.09 Other constipation; F10.10 Alcohol abuse, uncomplicated; J44.9 Chronic obstructive pulmonary disease, unspecified; F41.9 Anxiety disorder, unspecified; F41.0 Panic disorder [episodic paroxysmal anxiety]; Z89.511 Acquired absence of right leg below knee; E78.00 Pure hypercholesterolemia, unspecified; K21.9 Gastro-esophageal reflux disease without esophagitis; Z95.5 Presence of coronary angioplasty implant and graft; Z91.19 Patient's noncompliance with other medical treatment and regimen; Z87.891 Personal history of nicotine dependence; I25.2 Old myocardial infarction; Z79.82 Long term (current) use of aspirin; Z79.4 Long term (current) use of insulin; Z79.899 Other long term (current) drug therapy; Z72.89 Other problems related to lifestyle

== ENCOUNTER 2020-10-30 12:59 | Outpatient (CLI) | payer MEDICARE, OTHER | END 2020-10-30 13:00 | disposition critical access hospital (66) | LOC: EMS 12:59 | DX: M25.532 Pain in left wrist (principal) | CPT/HCPCS: A0425; A0429 ==

== ENCOUNTER 2020-10-30 13:26 | Emergency (ER) | payer MEDICARE, OTHER ==
[2020-10-30] MEDS ORDERED: MORPHINE IR 15 MG TABLET PO STA ×2 (13:30→16:46)
--- NOTE | 2020-10-30 13:34 | ED Physician Documentation ---
History of Present Illness - Stated complaint Stated Complaint: WRIST PX - History obtained from History obtained from: Patient, EMS (75yo male with type two diabetes, history of BKA presents with about a month of left wrist pain. Says he slept with it behind him about a month ago and it's been hurting ever since. Worse now because he's been using it too much.Recent discharge from the hospital now has to care of himself.) - History of Present Illness Worsened by: He can't afford home health care and has been using the wrist more. Review of Systems Constitutional: denies: Fever, Chills Nose: denies: Rhinorrhea / runny nose, Congestion Cardiac: denies: Chest pain / pressure, Palpitations Respiratory: denies: Dyspnea, Cough PD PAST MEDICAL HISTORY - Present Medications Home Medications: Ambulatory Orders Medication Instructions Recorded Confirmed Loratadine 10 mg PO DAILY 11/07/12 10/14/20 Aspirin [Aspirin EC] 81 mg PO DAILY #30 tablet. 08/26/17 10/14/20 Atorvastatin [Lipitor] 40 mg PO DAILY PM #30 08/26/17 10/14/20 Omeprazole [PriLOSEC] 20 mg PO DAILY #30 08/26/17 10/14/20 Spironolactone [Aldactone] 25 mg PO DAILY #30 tablet 08/26/17 10/14/20 carvediloL [Coreg] 25 mg PO BID #60 08/26/17 10/14/20 Furosemide 40 mg PO BID 12/30/17 10/14/20 Gabapentin [Neurontin] 300 mg PO TID 06/01/18 10/14/20 Losartan [Cozaar] 50 mg PO DAILY 06/01/18 10/14/20 Insulin Glargine [Lantus Solostar] 110 unit SUBQ BID 10/02/20 10/14/20 Tamsulosin [Flomax] 0.4 mg PO DAILY 30 Days #30 cap 10/02/20 10/14/20 Ascorbic Acid [Vitamin C] 500 mg PO DAILY 10/05/20 10/14/20 Duloxetine HCl [Cymbalta] 60 mg PO HS 10/05/20 10/14/20 Multivitamin 1 tab PO HS 10/05/20 10/14/20 Oxycodone HCl/Acetaminophen 1 - 2 each PO Q6H PRN #14 tablet 10/30/20 [Percocet 5-325 mg Tablet] - Allergies Allergies/Adverse Reactions: Allergies Allergy/AdvReac Type Severity Reaction Status Date / Time pregabalin [From Lyrica] Allergy Intermediate unknown Verified 10/30/20 16:00 simvastatin [From Zocor] Allergy Intermediate Nausea Verified 10/30/20 16:00 sulfamethoxazole Allergy Intermediate unknown Verified 10/30/20 16:00 [From Septra] trimethoprim [From Septra] Allergy Intermediate unknown Verified 10/30/20 16:00 tetracycline [Tetracycline] Allergy Rash Verified 10/30/20 16:00 PD ED PE NORMAL - Vitals Vital signs reviewed: Yes - General General: Alert and oriented X 3, No acute distress - HEENT HEENT: PERRL, EOMI - Neck Neck: Supple, no meningeal sign, No bony TTP - Cardiac Cardiac: RRR, No murmur - Abdomen Abdomen: Non tender - Derm Derm: Normal color, Warm and dry - Extremities Extremities: Other (Left wrist is minimally tender and swollen dorsally. He has decent range of motion but with pain. There is no warmth or redness. No pain out of proportion to exam.) - Neuro Neuro: Alert and oriented X 3, Normal speech Results - Vitals Vitals: Vital Signs - 24 hr 10/30/20 16:00 Temperature 36.6 C Heart Rate 80 Respiratory 16 Rate Blood Pressure 163/92 H O2 Saturation 97 Oxygen O2 Source Room air - Labs Labs: Laboratory Tests 10/30/20 15:32 Sodium 135 Potassium 4.5 Chloride 103 Carbon Dioxide 21 Anion Gap 11.0 BUN 31 H Creatinine 1.5 H Estimated GFR (MDRD) 46 L Glucose 379 H Calcium 9.1 PD MEDICAL DECISION MAKING - ED course ED course: 75-year-old gentleman presents with subacute left wrist pain, it is mildly tender, no warmth or redness. He has limited range of motion but clinically not to the extent one would expect with a septic joint. He was feeling improvement after pain medication here, going from a "20" on the 10 point pain scale to a "10" on the 10 point pain scale. It seems that his major issue is he probably needs some help at home with in-home care or respite. He was seen by the social worker delinquency prevention and unfortunately he makes too much money to Qualify for services. Patient was adamant that he wanted to be admitted to the hospital. I discussed with him that subacute wrist injury was certainly not clinical criteria for medical admission. Also repeatedly requesting morphine injection. Discussed that the acuity of the injury would not necessitate parenteral narcotics but he was given 2 doses of oral morphine. Departure - Departure Disposition: 01 Home, Self Care Clinical Impression: Left wrist pain Condition: Good Record reviewed to determine appropriate education?: Yes Prescriptions: Oxycodone HCl/Acetaminophen [Percocet 5-325 mg Tablet] 1 - 2 each PO Q6H PRN #14 tablet PRN Reason: pain Comments: Return for new or worsening symptoms. Follow-up with your doctor this week for recheck. I am prescribing a short course of narcotic pain medication for you. These are potentially dangerous and addictive medications that should be used carefully. These medications may constipate you. Take an [id number] stool softener (docusate) twice daily with plenty of water while taking these medications. If you go 24 hours without a bowel movement, take [id number] miralax, per package instructions. Do not drink or drive while taking these medications. If you received narcotic or sedating medications while in the emergency department, do not drive for 24 hours. Store this medication in a safe, secure place and out of reach of children. It is a violation of federal law to give or sell this medication to another person or to use in a manner other than prescribed. The ED will not refill narcotic prescriptions, including prescriptions lost or stolen. To dispose of unwanted medications: 1. [facility] at [address] in [place] has a medication drop box. They accept prescription medications (in pill form) Saturday through Saturday 9:00 a.m. to 5:00 p.m. 2. The [facility] [employer] accepts prescription medications (in pill form only) for disposal year round. Call for more information. 3. Contact the [facility] for the next [facility] sponsored prescription drug collection event. , [phone], or [phone]; Note that many narcotic pain relievers also contain Tylenol/acetaminophen. Please ensure that your total dose of acetaminophen from all sources does not exceed 3 g (3000 mg) per day. Discharge Date/Time: 10/30/20 18:07
[2020-10-30 16:03] VITALS: BP 163/92
[2020-10-30 16:04] LABS: CREATININE 1.5 mg/dL (0.6-1.2); POTASSIUM 4.5 mmol/L (3.5-5.0)
[2020-10-30] MEDS ORDERED: oxyCODONE/ACET 5/325 Prepack 4 PO STA (16:04)
[2020-10-30 16:05] LABS: CALCIUM 9.1 mg/dL (8.5-10.3)
--- NOTE | 2020-11-03 15:10 | XRAY Report ---
PROCEDURE: Wrist 3 View LT INDICATIONS: Pain TECHNIQUE: 3 views of the left wrist. COMPARISON: None. FINDINGS: No acute fracture or dislocation. Chronic dilatation of the second finger at the level of the proxima l phalanx. Mild soft tissue edema surrounding the wrist. IMPRESSION: No acute osseous abnormality. If there is clinical concern or persistent symptoms, additional imaging such as repeat radiographs or advanced imaging (e.g. CT, MRI) may be helpful for further evaluation. Reviewed by: Mango Smith MD on 10/30/2020 7:02 PM PDT Approved by: Mango Smith MD on 10/30/2020 7:02 PM PDT Station ID: [id number]
== END 2020-10-30 18:07 | disposition home or self-care (01) ==
LOC: EDUNIT# → SUPCPDRO 13:26 → ED 13:26
DX: M25.532 Pain in left wrist (principal); E11.9 Type 2 diabetes mellitus without complications; Z79.4 Long term (current) use of insulin; Z89.519 Acquired absence of unspecified leg below knee; Z79.82 Long term (current) use of aspirin
CPT/HCPCS: 36415; 80048; 85025; 99284

== ENCOUNTER 2020-12-14 15:22 | Outpatient (CLI) | payer MEDICARE, OTHER | END 2020-12-14 15:23 | disposition short-term general hospital (02) | LOC: EMS 15:22 | DX: R51.9 Headache, unspecified (principal); K59.00 Constipation, unspecified | CPT/HCPCS: A0425; A0429 ==

== ENCOUNTER 2021-04-01 13:21 | Outpatient (CLI) | payer MEDICARE, OTHER | END 2021-04-01 13:22 | disposition critical access hospital (66) | LOC: EMS 13:21 | DX: M25.562 Pain in left knee (principal); M54.2 Cervicalgia; M54.9 Dorsalgia, unspecified; W19.XXXA Unspecified fall, initial encounter; E11.649 Type 2 diabetes mellitus with hypoglycemia without coma; Z79.4 Long term (current) use of insulin | CPT/HCPCS: A0425; A0429 ==

== ENCOUNTER 2021-04-02 12:27 | Outpatient (CLI) | payer MEDICARE, OTHER | END 2021-04-02 12:28 | disposition critical access hospital (66) | LOC: EMS 12:27 | DX: R10.30 Lower abdominal pain, unspecified (principal); M54.50 Low back pain, unspecified; R07.9 Chest pain, unspecified | CPT/HCPCS: A0425; A0429 ==

== ENCOUNTER 2021-04-02 12:49 | Emergency (ER) | payer MEDICARE, OTHER ==
[2021-04-02] MEDS ORDERED: SODIUM CHLORIDE 0.9% 1,000 ML IV STA ×2 (13:01→21:36)
[2021-04-02] MEDS ORDERED: ONDANSETRON 4 MG/2 ML VIAL IVP STA (13:01)
--- NOTE | 2021-04-02 13:07 | ED Physician Documentation ---
History of Present Illness - Stated complaint Stated Complaint: ABD/BACK PX - Chief complaint Chief Complaint: Abd Pain - Additonal information Additional information: 75-year-old male presents emergency department for evaluation of lower abdominal pain nausea and vomiting. He is also reporting left leg and hip pain. He was seen in this emergency department yesterday and was found to have acute kidney injury as well as fairly significant intoxication. A femur and knee x-ray at that time were unremarkable for fracture. He was discharged home. Since being discharged home he is reported lower belly pain as well as dry heaving. He is typically wheelchair-bound given a history of previous right BKA. He denies any fevers. States he has not drank since leaving the hospital yesterday. History is somewhat difficult to elicit. Patient responds that everything is in his chart. Upset about being asked to confirm his history, name or date of . Review of Systems Constitutional: denies: Fever, Chills Throat: reports: Reviewed and negative Cardiac: denies: Chest pain / pressure, Palpitations, Pedal edema GI: reports: Abdominal Pain, Nausea, Vomiting : denies: Dysuria, Frequency, Hematuria Skin: denies: Rash, Lesions Musculoskeletal: reports: Reviewed and negative Neurologic: reports: Reviewed and negative Psychiatric: reports: Reviewed and negative PD PAST MEDICAL HISTORY - Past Medical History Cardiovascular: Hypertension, High cholesterol, Coronary artery disease, Peripheral Vascular Disease, [place] Respiratory: COPD, Shortness of breath Neuro: Peripheral neuropathy Endocrine/Autoimmune: Type 2 diabetes GI: GERD : Nocturia, Frequency, Kidney stones Psych: Anxiety, Panic attacks Musculoskeletal: Fibromyalgia, Chronic back pain - Past Surgical History Past Surgical History: Yes Ortho: Amputation Cardiovascular: Coronary stent HEENT: Cataracts - Present Medications Home Medications: Ambulatory Orders Medication Instructions Recorded Confirmed Loratadine 10 mg PO DAILY 11/07/12 10/14/20 Aspirin [Aspirin EC] 81 mg PO DAILY #30 tablet. 08/26/17 10/14/20 Atorvastatin [Lipitor] 40 mg PO DAILY PM #30 08/26/17 10/14/20 Omeprazole [PriLOSEC] 20 mg PO DAILY #30 08/26/17 10/14/20 Spironolactone [Aldactone] 25 mg PO DAILY #30 tablet 08/26/17 10/14/20 carvediloL [Coreg] 25 mg PO BID #60 08/26/17 10/14/20 Furosemide 40 mg PO BID 12/30/17 10/14/20 Gabapentin [Neurontin] 300 mg PO TID 06/01/18 10/14/20 Losartan [Cozaar] 50 mg PO DAILY 06/01/18 10/14/20 Insulin Glargine [Lantus Solostar] 110 unit SUBQ BID 10/02/20 10/14/20 Tamsulosin [Flomax] 0.4 mg PO DAILY 30 Days #30 cap 10/02/20 10/14/20 Ascorbic Acid [Vitamin C] 500 mg PO DAILY 10/05/20 10/14/20 Duloxetine HCl [Cymbalta] 60 mg PO HS 10/05/20 10/14/20 Multivitamin 1 tab PO HS 10/05/20 10/14/20 Oxycodone HCl/Acetaminophen 1 - 2 each PO Q6H PRN #14 tablet 10/30/20 [Percocet 5-325 mg Tablet] - Allergies Allergies/Adverse Reactions: Allergies Allergy/AdvReac Type Severity Reaction Status Date / Time pregabalin [From Lyrica] Allergy Intermediate unknown Verified 04/02/21 12:55 simvastatin [From Zocor] Allergy Intermediate Nausea Verified 04/02/21 12:55 sulfamethoxazole Allergy Intermediate unknown Verified 04/02/21 12:55 [From Septra] trimethoprim [From Septra] Allergy Intermediate unknown Verified 04/02/21 12:55 tetracycline [Tetracycline] Allergy Rash Verified 04/02/21 12:55 - Social History Does the pt smoke?: No Smoking Status: Never smoker Does the pt drink ETOH?: Yes Does the pt have substance abuse?: Yes - Immunizations Immunizations are current?: Yes - POLST Patient has POLST: No POLST Status: Full Code PD ED PE EXPANDED - General General: Alert, No acute distress, Other (obese) - Cardiac Cardiac: Regular Rate, Radial strong equal, Pedal strong equal (left foot) - Respiratory Respiratory: Clear to ausultation bety. No: Distress, Labored - Abdomen Abdomen: Normal Bowel sounds, Tender to palpation (Left lower quadrant left flank tenderness to palpation.) - Derm Derm: Normal color, Warm and dry. No: Rash - Extremities Extremities: Normal. No: Deformity, Tenderness - Neuro Neuro: Alert and Oriented X 3, CNII-XII intact - GCS Eye Opening: Spontaneous Motor: Obeys Commands Verbal: Oriented Total: 15 Results - Vitals Vitals: Vital Signs - 24 hr 04/02/21 04/02/21 04/02/21 12:56 13:11 15:26 Temperature 37.8 C Heart Rate 90 93 93 Respiratory 20 17 20 Rate Blood Pressure 194/99 H 204/116 H 162/80 H O2 Saturation 97 97 97 04/02/21 04/02/21 04/02/21 17:00 19:00 21:00 Temperature Heart Rate 88 93 94 Respiratory 20 16 17 Rate Blood Pressure 179/91 H 159/78 H 179/84 H O2 Saturation 98 94 96 Oxygen O2 Source Room air - EKG (time done) 1258 Rate: Rate (enter#) (93) Rhythm: NSR [place]: Normal Intervals: Prolonged AR. No: Prolonged QT QRS: Poor R wave progression Ischemia: Normal ST segments Compare to prior EKG: Unchanged from prior EKG Computer interpretation: Agree with computer - Labs Labs: Laboratory Tests 04/02/21 04/02/21 04/02/21 13:10 13:10 13:10 WBC 8.5 RBC 4.13 L Hgb 12.1 L Hct 36.8 L MCV 89.1 MCH 29.3 MCHC 32.9 RDW 13.6 Plt Count 128 L MPV 8.6 Neut # (Auto) 6.2 Lymph # (Auto) 1.2 L [place] # (Auto) 1.0 Eos # (Auto) 0.1 Baso # (Auto) 0.1 Absolute Nucleated RBC 0.00 Nucleated RBC % 0.0 PT INR Sodium 134 L Potassium 4.0 Chloride 101 Carbon Dioxide 23 Anion Gap 10.0 BUN 56 H Creatinine 1.8 H Estimated GFR (MDRD) 37 L Glucose 147 H Lactic Acid 1.4 Calcium 8.0 L Total Bilirubin 1.0 AST 80 H ALT 56 Alkaline Phosphatase 127 H Troponin I High Sens B-Natriuretic Peptide Total Protein 7.0 Albumin 2.8 L Globulin 4.2 Albumin/Globulin Ratio 0.7 L Lipase 21 L Urine Color Urine Clarity Urine pH Ur Specific [place] Urine Protein Urine Glucose (UA) Urine Ketones Urine Occult Blood Urine Nitrite Urine Bilirubin Urine Urobilinogen Ur Leukocyte Esterase Urine RBC Urine WBC Ur Squamous Epith Cells Urine Bacteria Ur Microscopic Review Urine Culture Comments Nasal Adenovirus (PCR) Nasal B. parapertussis DNA (PCR) Nasal Coronavir 229E PCR Nasal Coronavir HKU1 PCR Nasal Coronavir NL63 PCR Nasal Coronavir OC43 PCR Nasal Enterovir/Rhinovir PCR Nasal Influenza B PCR Nasal Influenza A PCR Nasal Parainfluen 1 PCR Nasal Parainfluen 2 PCR Nasal Parainfluen 3 PCR Nasal Parainfluen 4 PCR Nasal RSV (PCR) Nasal B.pertussis DNA PCR Nasal C.pneumoniae (PCR) Tyler Human Metapneumo PCR Nasal M.pneumoniae (PCR) Nasal SARS-CoV-2 (PCR) Ethyl Alcohol < 5.0 04/02/21 04/02/21 04/02/21 13:10 13:10 13:10 WBC RBC Hgb Hct MCV MCH MCHC RDW Plt Count MPV Neut # (Auto) Lymph # (Auto) [place] # (Auto) Eos # (Auto) Baso # (Auto) Absolute Nucleated RBC Nucleated RBC % PT 11.6 INR 1.0 Sodium Potassium Chloride Carbon Dioxide Anion Gap BUN Creatinine Estimated GFR (MDRD) Glucose Lactic Acid Calcium Total Bilirubin AST ALT Alkaline Phosphatase Troponin I High Sens 44.0 H* B-Natriuretic Peptide 156 H Total Protein Albumin Globulin Albumin/Globulin Ratio Lipase Urine Color Urine Clarity Urine pH Ur Specific [place] Urine Protein Urine Glucose (UA) Urine Ketones Urine Occult Blood Urine Nitrite Urine Bilirubin Urine Urobilinogen Ur Leukocyte Esterase Urine RBC Urine WBC Ur Squamous Epith Cells Urine Bacteria Ur Microscopic Review Urine Culture Comments Nasal Adenovirus (PCR) Nasal B. parapertussis DNA (PCR) Nasal Coronavir 229E PCR Nasal Coronavir HKU1 PCR Nasal Coronavir NL63 PCR Nasal Coronavir OC43 PCR Nasal Enterovir/Rhinovir PCR Nasal Influenza B PCR Nasal Influenza A PCR Nasal Parainfluen 1 PCR Nasal Parainfluen 2 PCR Nasal Parainfluen 3 PCR Nasal Parainfluen 4 PCR Nasal RSV (PCR) Nasal B.pertussis DNA PCR Nasal C.pneumoniae (PCR) Tyler Human Metapneumo PCR Nasal M.pneumoniae (PCR) Nasal SARS-CoV-2 (PCR) Ethyl Alcohol 04/02/21 04/02/21 04/02/21 13:53 14:35 15:15 WBC RBC Hgb Hct MCV MCH MCHC RDW Plt Count MPV Neut # (Auto) Lymph # (Auto) [place] # (Auto) Eos # (Auto) Baso # (Auto) Absolute Nucleated RBC Nucleated RBC % PT INR Sodium Potassium Chloride Carbon Dioxide Anion Gap BUN Creatinine Estimated GFR (MDRD) Glucose Lactic Acid Calcium Total Bilirubin AST ALT Alkaline Phosphatase Troponin I High Sens 43.3 H* B-Natriuretic Peptide Total Protein Albumin Globulin Albumin/Globulin Ratio Lipase Urine Color YELLOW Urine Clarity CLEAR Urine pH 6.0 Ur Specific [place] 1.015 Urine Protein 30 H Urine Glucose (UA) NEGATIVE Urine Ketones NEGATIVE Urine Occult Blood NEGATIVE Urine Nitrite NEGATIVE Urine Bilirubin NEGATIVE Urine Urobilinogen 0.2 (NORMAL) Ur Leukocyte Esterase NEGATIVE Urine RBC None Seen Urine WBC 0-3 Ur Squamous Epith Cells RARE Squamous Urine Bacteria None Seen Ur Microscopic Review INDICATED Urine Culture Comments NOT INDICATED Nasal Adenovirus (PCR) NOT DETECTED Nasal B. parapertussis DNA (PCR) NOT DETECTED Nasal Coronavir 229E PCR NOT DETECTED Nasal Coronavir HKU1 PCR NOT DETECTED Nasal Coronavir NL63 PCR NOT DETECTED Nasal Coronavir OC43 PCR NOT DETECTED Nasal Enterovir/Rhinovir PCR NOT DETECTED Nasal Influenza B PCR NOT DETECTED Nasal Influenza A PCR NOT DETECTED Nasal Parainfluen 1 PCR NOT DETECTED Nasal Parainfluen 2 PCR NOT DETECTED Nasal Parainfluen 3 PCR NOT DETECTED Nasal Parainfluen 4 PCR NOT DETECTED Nasal RSV (PCR) NOT DETECTED Nasal B.pertussis DNA PCR NOT DETECTED Nasal C.pneumoniae (PCR) NOT DETECTED Tyler Human Metapneumo PCR NOT DETECTED Nasal M.pneumoniae (PCR) NOT DETECTED Nasal SARS-CoV-2 (PCR) NOT DETECTED Ethyl Alcohol - Rads (name of study) CT abd Radiology: Final report received (Gallbladder demonstrates calculi within its lumen as well as evidence of wall thickening and surrounding fat stranding. Pancreas is normal. Cirrhosis and portal hypertension. Normal appendix.) abd US Radiology: Final report received (Limited imaging findings are suspicious for cholecystitis with gallstone seen at the gallbladder neck and gallbladder wall thickening. Gallbladder appears hypervascular.) PD MEDICAL DECISION MAKING - ED course Complexity details: reviewed results, re-evaluated patient, d/w patient, d/w virtualization consultant (Mary Palacio) ED course: 75-year-old male presents the emergency department for chief complaint of a bdominal pain as well as vomiting. Seen yesterday for acutely altered mental status and was at that time found to be rather intoxicated. His blood alcohol was 197. He was found to also have mild acute kidney injury with a BUN and creatinine of 52 and 1.9. However he was ultimately discharged home. Returns today with abdominal pain and vomiting. His screening labs showed no leukocytosis. He does have a very mild thrombocytopenia. Screening labs show a persistence of his mild acute kidney injury. Which is essentially unchanged from yesterday. His AST is 80, and his ALT is in the 40s. His total bilirubin is not elevated. This is most consistent with an alcoholic cirrhosis given the associated thrombocytopenia. However CT of the abdomen is concerning for acute cholecystitis with stones seen within the gallbladder as well as gallbladder wall thickening. EKG is non ischemic. Inital trop mild elevated at 44. but on repeat 43, essentially flat/static Patient was noted to have Greater than 1000 mL of urine within his bladder. He does have a history of bladder outlet obstruction in the past requiring Mahan catheterization. Thus a Mahan was placed here in the ER and after about 1 hour, an additional 1500 ml of urine drained. He likely has bladder outlet obstruction causing rafael. 1450: I discussed this case with Dr. Patrice Palacio our surgeon on-call concerns for acute cholecystitis. Given the patient's history of alcoholism, likely cirrhosis as well as his morbid obesity he does not feel he is a good surgical candidate here at [facility]. He does recommend attempting to transfer the patient for GI evaluation and possible cholecystectomy tube. I have ordered 3 g of Unasyn empirically. An abdominal ultrasound is pending. 1735: I followed up with Dr. Patrice Palacio surgeon on-call give abd US that showed cholecystitis. He is requesting that we obtain a HIDA scan on the patient. He suspects that the findings of acute cholecystitis on ultrasound as well as CT scan are likely related to the history of cirrhosis, portal hypertension or right heart failure. He states that if the HIDA scan completed tomorrow shows an ejection fracture and greater than 10% then his gallbladder is not the concern. He feels the patient may likely need an acute cholecystostomy tube but this is not something that can be managed here at [facility] thus we will continue to look for transfer. Unfortunately every outlying hospital along the [address] [place] is at or above capacity. [facility] on a waiting list. We will reach out to the [facility] for help with transfer. Pt is to be NPO after midnight for HIDA scan and maintanence IVF ordered. Will be signed out to my night time colleague Dr. Moreno to f/u on transfer process if a bed becomes available we will order the pt's routine meds for this evening, latrice will hold lantus as he is going to be NPO after midnight Departure - Departure Disposition: 02 Transfer Acute Care Hosp Clinical Impression: Acute cholecystitis, RAFAEL (acute kidney injury), Bladder outlet obstruction, Alcohol abuse
--- NOTE | 2021-04-02 13:09 | ED Physician Documentation ---
History of Present Illness - Stated complaint Stated Complaint: ABD/BACK PX - Chief complaint Chief Complaint: Abd Pain PD PAST MEDICAL HISTORY - Past Medical History Cardiovascular: Hypertension, High cholesterol, Coronary artery disease, Peripheral Vascular Disease, [place] Respiratory: COPD, Shortness of breath Neuro: Peripheral neuropathy Endocrine/Autoimmune: Type 2 diabetes GI: GERD : Nocturia, Frequency, Kidney stones Psych: Anxiety, Panic attacks Musculoskeletal: Fibromyalgia, Chronic back pain - Past Surgical History Past Surgical History: Yes Ortho: Amputation Cardiovascular: Coronary stent HEENT: Cataracts - Present Medications Home Medications: Ambulatory Orders Medication Instructions Recorded Confirmed Loratadine 10 mg PO DAILY 11/07/12 10/14/20 Aspirin [Aspirin EC] 81 mg PO DAILY #30 tablet. 08/26/17 10/14/20 Atorvastatin [Lipitor] 40 mg PO DAILY PM #30 08/26/17 10/14/20 Omeprazole [PriLOSEC] 20 mg PO DAILY #30 08/26/17 10/14/20 Spironolactone [Aldactone] 25 mg PO DAILY #30 tablet 08/26/17 10/14/20 carvediloL [Coreg] 25 mg PO BID #60 08/26/17 10/14/20 Furosemide 40 mg PO BID 12/30/17 10/14/20 Gabapentin [Neurontin] 300 mg PO TID 06/01/18 10/14/20 Losartan [Cozaar] 50 mg PO DAILY 06/01/18 10/14/20 Insulin Glargine [Lantus Solostar] 110 unit SUBQ BID 10/02/20 10/14/20 Tamsulosin [Flomax] 0.4 mg PO DAILY 30 Days #30 cap 10/02/20 10/14/20 Ascorbic Acid [Vitamin C] 500 mg PO DAILY 10/05/20 10/14/20 Duloxetine HCl [Cymbalta] 60 mg PO HS 10/05/20 10/14/20 Multivitamin 1 tab PO HS 10/05/20 10/14/20 Oxycodone HCl/Acetaminophen 1 - 2 each PO Q6H PRN #14 tablet 10/30/20 [Percocet 5-325 mg Tablet] - Allergies Allergies/Adverse Reactions: Allergies Allergy/AdvReac Type Severity Reaction Status Date / Time pregabalin [From Lyrica] Allergy Intermediate unknown Verified 04/02/21 12:55 simvastatin [From Zocor] Allergy Intermediate Nausea Verified 04/02/21 12:55 sulfamethoxazole Allergy Intermediate unknown Verified 04/02/21 12:55 [From Septra] trimethoprim [From Septra] Allergy Intermediate unknown Verified 04/02/21 12:55 tetracycline [Tetracycline] Allergy Rash Verified 04/02/21 12:55 - Social History Does the pt smoke?: No Smoking Status: Never smoker Does the pt drink ETOH?: Yes Does the pt have substance abuse?: Yes - Immunizations Immunizations are current?: Yes - POLST Patient has POLST: No POLST Status: Full Code Results - Vitals Vitals: Vital Signs - 24 hr 04/02/21 12:56 Temperature 37.8 C Heart Rate 90 Respiratory 20 Rate Blood Pressure 194/99 H O2 Saturation 97 Oxygen O2 Source Room air - EKG (time done) 1258 Rate: Rate (enter#) (93) Rhythm: NSR [place]: Normal Intervals: Prolonged MT. No: Prolonged QT QRS: Poor R wave progression Ischemia: Normal ST segments Compare to prior EKG: Unchanged from prior EKG Computer interpretation: Agree with computer
[2021-04-02 13:15] LABS: BASOPHILS # (AUTO) 0.1 10^3/uL (0.0-0.1); BASOPHILS % (AUTO) 0.6 %; EOSINOPHILS # (AUTO) 0.1 10^3/uL (0.0-0.7); EOSINOPHILS % (AUTO) 1.3 %; HCT - HEMATOCRIT 36.8 % (42.0-52.0); HGB - HEMOGLOBIN 12.1 g/dL (14.0-18.0); LYMPHOCYTES # (AUTO) 1.2 10^3/uL (1.5-3.5); LYMPHOCYTES % (AUTO) 13.7 %; MEAN CORPUSCULAR HEMOGLOBIN 29.3 pg (27.0-31.0); MEAN CORPUSCULAR HGB CONC 32.9 g/dL (32.0-36.0); MEAN CORPUSCULAR VOLUME 89.1 fL (80.0-94.0); MEAN PLATELET VOLUME 8.6 fL (7.4-11.4); MONOCYTES % (AUTO) 11.6 %; NEUTROPHILS # (AUTO) 6.2 10^3/uL (1.5-6.6); NEUTROPHILS % (AUTO) 72.6 %; PLT - PLATELET COUNT 128 10^3/uL (130-450); RED BLOOD COUNT 4.13 10^6/uL (4.70-6.10); RED CELL DISTRIBUTION WIDTH 13.6 % (12.0-15.0); WHITE BLOOD COUNT 8.5 x10^3/uL (4.8-10.8)
[2021-04-02 13:31] LABS: ALBUMIN 2.8 g/dL (3.2-5.5); ALBUMIN/GLOBULIN RATIO 0.7 (1.0-2.2); ALKALINE PHOSPHATASE 127 IU/L (42-121); ALT ALANINE AMINOTRANSFERASE 56 IU/L (10-60); AST ASPARTATE AMINOTRANSFERASE 80 IU/L (10-42); BUN - BLOOD UREA NITROGEN 56 mg/dL (6-20); CARBON DIOXIDE - CO2 23 mmol/L (21-32); CHLORIDE 101 mmol/L (101-111); CREATININE 1.8 mg/dL (0.6-1.2); ETOH - ETHANOL < 5.0 mg/dL; GFR - MDRD 37 (>89); GLUCOSE 147 mg/dL (70-100); LIPASE 21 U/L (22-51); SODIUM 134 mmol/L (135-145)
[2021-04-02] MEDS ORDERED: iohexoL-300 100 ML VIAL ONE (13:45)
[2021-04-02 14:01] LABS: BILIRUBIN,URINE NEGATIVE (NEGATIVE); GLUCOSE, URINE (UA) NEGATIVE (NEGATIVE); KETONES,URINE (UA) NEGATIVE (NEGATIVE); LEUKOCYTE ESTERASE, URINE NEGATIVE (NEGATIVE); NITRITE,URINE NEGATIVE (NEGATIVE); OCCULT BLOOD,URINE NEGATIVE (NEGATIVE); PROTEIN,URINE 30 mg/dL (NEGATIVE); UROBILINOGEN,URINE 0.2 (NORMAL) E.U./dL (NORMAL)
[2021-04-02 14:04] LABS: CLARITY,URINE CLEAR (CLEAR)
[2021-04-02 14:19] LABS: BACTERIA,URINE None Seen /HPF (None Seen); RBC,URINE None Seen /HPF (0-5); SQUAMOUS EPITHELIAL CELL,UR RARE Squamous (<= Few); WBC,URINE 0-3 /HPF (0-3)
--- NOTE | 2021-04-02 14:37 | CT Report ---
PROCEDURE: Abdomen/Pelvis WO INDICATIONS: LLQ ABD PAIN TECHNIQUE: Noncontrast 5 mm thick sections acquired from the diaphragms to the symphysis. 5 mm coronal and sagi ttal reformats were then performed. For radiation dose reduction, the following was used: automated exposure control, adjustment of mA and/or kV according to patient size. COMPARISON: CT dated 10/04/2020 FINDINGS: Image quality: Excellent. ABDOMEN: Lung bases: Lung bases are clear. Heart size is normal. Calcification of the coronary vasculature. Solid organs: Liver and spleen are normal in size. Hepatic contour is nodular, as before. Gallbladde r demonstrates calculi within its lumen as well as evidence of wall thickening and surrounding fat st randing. Pancreas is normal in contours. No adrenal nodules. Kidneys are normal in size, without h ydronephrosis. No change in small nonobstructing renal calculi bilaterally. Peritoneum and bowel: Unenhanced bowel loops demonstrate normal wall thickness and caliber. Normal appendix. No free fluid or air. Nodes and vessels: No retroperitoneal or mesenteric adenopathy by size criteria. Aorta and inferior vena cava are normal in caliber. Portosystemic collateral vessels are present. Miscellaneous: No ventral hernias. PELVIS: Genitourinary: Bladder wall thickness is normal. Miscellaneous: No inguinal hernias or adenopathy. Bones: No suspicious bony lesions. No vertebral body compression fractures. IMPRESSION: 1. Findings suggestive of cholecystitis. Initial further assessment with ultrasound is recommended. 2. Cirrhosis and portal hypertension. 3. Normal appendix. Reviewed by: Ruperto Schwartz MD on 04/02/2021 2:36 PM PST Approved by: Ruperto Schwartz MD on 04/02/2021 2:36 PM PST Station ID: [id number]
[2021-04-02] MEDS ORDERED: AMPICILLIN/SULBACTAM 3 GM in SODIUM CHLORIDE 0.9% MINIBAG 100 ML IV STA (14:53)
[2021-04-02 15:09] LABS: PT - PROTHROMBIN TIME 11.6 secs (9.9-12.6)
[2021-04-02 16:16] LABS: B. PARAPERTUSSIS- RESP PCR PAN NOT DETECTED; B. PERTUSSIS- RESP PCR PANEL NOT DETECTED; C. PNEUMONIAE- RESP PCR PANEL NOT DETECTED; CORONAVIRUS 229E-RESP PCR NOT DETECTED; CORONAVIRUS HKU1-RESP PCR NOT DETECTED; CORONAVIRUS NL63-RESP PCR NOT DETECTED; CORONAVIRUS OC43-RESP PCR NOT DETECTED; HUMAN METAPNEUMOVIRUS NOT DETECTED; INFLUENZA A- RESP PCR PANEL NOT DETECTED; INFLUENZA B - RESP PCR PANEL NOT DETECTED; M. PNEUMONIAE- RESP PCR PANEL NOT DETECTED; PARAINFLUENZA VIRUS 1 NOT DETECTED; PARAINFLUENZA VIRUS 2 NOT DETECTED; PARAINFLUENZA VIRUS 3 NOT DETECTED; PARAINFLUENZA VIRUS 4 NOT DETECTED; RHINOVIRUS/ENTEROVIRUS NOT DETECTED; RSV- RESP PCR PANEL NOT DETECTED; SARS-CoV-2 -RESP PCR PANEL NOT DETECTED
--- NOTE | 2021-04-02 17:09 | Ultrasound Report ---
PROCEDURE: Abdomen Limited INDICATIONS: ? acute crescencio TECHNIQUE: Real-time focused scanning was performed of the abdomen, with image documentation. COMPARISON: Correlation is made with the accompanying abdomen and pelvis CT, 04/02/2021 FINDINGS: Overall scan quality is limited by bowel gas and body habitus. The liver demonstrates normal size. The liver demonstrates a coarsened echotexture, which limits ult rasound sensitivity for detection of masses. There is a recanalized umbilical vein. A 1.7 cm gallstone can be seen at the gallbladder neck The gallbladder wall is thickened to 9 mm. The gallbladder wall appears hypervascular. There is potential gallbladder wall adenomyomatosis. There i s no specific pericholecystic fluid. The sonographic [place]'s sign is negative. No biliary ductal dilatation is seen. The common bile duct measures 6 mm. The visualized pancreas is within normal limits. The right kidney demonstrates a calcification superiorly that measures up to 1.2 cm. No right kidney hydronephrosis is seen. The right kidney demonstrates normal size. IMPRESSION: These limited imaging findings are suspicious for cholecystitis with a gallstone seen at the gallblad toni neck with gallbladder wall thickening. The gallbladder wall appears hypervascular. On these limit ed images, no additional signs of cholecystitis are seen. An enlarged, cirrhotic appearing liver can be seen, with a recanalized medical vein. Nonobstructing right-sided kidney stone. Note: Concordant preliminary findings given by the training developer upon the completion of the examination to Pat Schwartz at 4:55 PM on 04/02/2021. Reviewed by: Luigi Dockery MD on 04/02/2021 4:08 PM [place] Approved by: Luigi Dockery MD on 04/02/2021 4:08 PM [place] Station ID: [id number]
--- NOTE | 2021-04-02 18:35 | CONSULTATION NOTE ---
Referring Provider Consult Date: 04/02/21 Chief Complaint - Chief Complaint Chief Complaint: lower abdominal discomfort History of Present Illness - History Obtained From Records Reviewed: yes History obtained from: pt Exam Limitations: none - History of Present Illness HPI Comment/Other: Seen yesterday and today in the ED. He had a ct scan for lower abdominal discomfort. This shows gallstones and thickened gallbladder. The patient denies epigastric, right upper quadrant, right upper back or shoulder blade area discomfort. He has had mild nausea and some reflux symptoms. He thinks he may have been partying too much. Ct scan also shows cirrhosis with portal hypertension. PMH includes coronary artery disease, right heart failure, core pulmonale, diabetes, peripheral vascular disease. History - Past Medical History Cardiovascular: reports: Hypertension, High cholesterol, Coronary artery disease, Peripheral Vascular Disease, [place] Respiratory: reports: COPD, Shortness of breath Neuro: reports: Peripheral neuropathy Endocrine/Autoimmune: reports: Type 2 diabetes GI: reports: GERD : reports: Nocturia, Frequency, Kidney stones Psych: reports: Anxiety, Panic attacks Musculoskeletal: reports: Fibromyalgia, Chronic back pain MRSA Hx?: No - Past Surgical History Ortho: reports: Amputation Cardiovascular: reports: Coronary stent HEENT: reports: Cataracts - Family & Social History Family History: Mother: , Diabetes, Type 2, Father: , CAD Living Situation: With spouse/s.o., With caregiver(s) (A 50 y/o male lives with them, helps around the house and caregiving.) Social History Notes: The patient lives in [place] with his who has Alzheimer's dementia. He states that he is the primary caregiver for his . He is retired. He quit smoking in 2002 prior to that he was a pack-a-day smoker for close to 40 years. He states that he does continue to drink but has cut down on his drinking recently. He has used marijuana to try to deal with his pain. He denies any other illicit drug use. - Substance History Use: Uses substance without health or social issues: Other (No cigarette use for 17 years.) - POLST Patient has POLST: No POLST Status: Full Code Meds/Allgy - Home Medications Home Medications: Ambulatory Orders Medication Instructions Recorded Confirmed Loratadine 10 mg PO DAILY 11/07/12 10/14/20 Aspirin [Aspirin EC] 81 mg PO DAILY #30 tablet. 08/26/17 10/14/20 Atorvastatin [Lipitor] 40 mg PO DAILY PM #30 08/26/17 10/14/20 Omeprazole [PriLOSEC] 20 mg PO DAILY #30 08/26/17 10/14/20 Spironolactone [Aldactone] 25 mg PO DAILY #30 tablet 08/26/17 10/14/20 carvediloL [Coreg] 25 mg PO BID #60 08/26/17 10/14/20 Furosemide 40 mg PO BID 12/30/17 10/14/20 Gabapentin [Neurontin] 300 mg PO TID 06/01/18 10/14/20 Losartan [Cozaar] 50 mg PO DAILY 06/01/18 10/14/20 Insulin Glargine [Lantus Solostar] 110 unit SUBQ BID 10/02/20 10/14/20 Tamsulosin [Flomax] 0.4 mg PO DAILY 30 Days #30 cap 10/02/20 10/14/20 Ascorbic Acid [Vitamin C] 500 mg PO DAILY 10/05/20 10/14/20 Duloxetine HCl [Cymbalta] 60 mg PO HS 10/05/20 10/14/20 Multivitamin 1 tab PO HS 10/05/20 10/14/20 Oxycodone HCl/Acetaminophen 1 - 2 each PO Q6H PRN #14 tablet 10/30/20 [Percocet 5-325 mg Tablet] - Allergies Allergies/Adverse Reactions: Allergies Allergy/AdvReac Type Severity Reaction Status Date / Time pregabalin [From Lyrica] Allergy Intermediate unknown Verified 04/02/21 12:55 simvastatin [From Zocor] Allergy Intermediate Nausea Verified 04/02/21 12:55 sulfamethoxazole Allergy Intermediate unknown Verified 04/02/21 12:55 [From Septra] trimethoprim [From Septra] Allergy Intermediate unknown Verified 04/02/21 12:55 tetracycline [Tetracycline] Allergy Rash Verified 04/02/21 12:55 Review of Systems - Constitutional Constitutional: reports: Fatigue (10 pt ros as above otherwise unremarkable) Exam - Vital Signs Reviewed Vital Signs: Yes Vital Signs: Vital Signs x48h Temp Pulse Resp BP Pulse Ox 04/02/21 17:00 88 20 179/91 H 98 04/02/21 15:26 93 20 162/80 H 97 04/02/21 13:11 93 17 204/116 H 97 04/02/21 12:56 37.8 C 90 20 194/99 H 97 - Physical Exam General Appearance: positive: No acute distress, Alert Eyes Bilateral: positive: PERRL, EOMI, No scleral icterus ENT: positive: No signs of dehydration Neck: positive: No JVD, Trachea midline Respiratory: positive: No respiratory distress, Breath sounds nml Cardiovascular: positive: Regular rate & rhythm Abdomen: positive: Non-tender, No distention Neurologic/Psychiatric: positive: Oriented x3 Conclusion/Plan - Problem List (1) Left sided abdominal pain Conclusion/Plan: He denies having upper abdominal pain. He has a benign abdominal exam. Ct scan shows gallstones and thickened gallbladder. Clinically he does not have cholecystitis. I suspect he has gallbladder congestion from his right heart failure and/ or cirrhosis. A HIDA scan would be useful. If his gallbladder is able to drain even with a EF of 10 % he would not have acute cholecystitis. He certainly is not a candidate for surgery at [facility]. If hida scan shows gallbladder obstruction and clinically if he were developing cholecystitis I would recommend transfer to a facility which could offer a higher level of care which would include interventional radiology for possible cholecystostomy tube. I would not recommend cholecystostomy tube placement unless HIDA scan showed complete obstruction and he clinically was developing cholecystitis. - Lab Results Fish Bones: 04/02/21 13:10 04/02/21 13:10 - Diagnostic Imaging Results Diagnostic Imaging Results: positive: Final report reviewed, Read independently
[2021-04-02] MEDS ORDERED: TAMSULOSIN 0.4 MG CAPSULE PO STA (22:17)
[2021-04-02] MEDS ORDERED: DULoxetine 30 MG CAPSULE PO STA (22:18)
[2021-04-02] MEDS ORDERED: FUROSEMIDE 20 MG TABLET PO STA (22:18)
[2021-04-02] MEDS: carvediloL 12.5 MG TABLET PO SCH (23:48)
[2021-04-02] MEDS: GABAPENTIN 100 MG CAPSULE PO SCH (23:49)
[2021-04-03] MEDS ORDERED: MORPHINE 10 MG/ML VIAL IVP STA (02:23)
[2021-04-03 05:03] LABS: BASOPHILS # (AUTO) 0.1 10^3/uL (0.0-0.1); BASOPHILS % (AUTO) 0.7 %; EOSINOPHILS # (AUTO) 0.1 10^3/uL (0.0-0.7); EOSINOPHILS % (AUTO) 1.5 %; HCT - HEMATOCRIT 31.4 % (42.0-52.0); HGB - HEMOGLOBIN 10.7 g/dL (14.0-18.0); LYMPHOCYTES # (AUTO) 1.6 10^3/uL (1.5-3.5); LYMPHOCYTES % (AUTO) 21.2 %; MEAN CORPUSCULAR HEMOGLOBIN 30.5 pg (27.0-31.0); MEAN CORPUSCULAR HGB CONC 34.1 g/dL (32.0-36.0); MEAN CORPUSCULAR VOLUME 89.5 fL (80.0-94.0); MEAN PLATELET VOLUME 9.2 fL (7.4-11.4); MONOCYTES % (AUTO) 13.4 %; NEUTROPHILS # (AUTO) 4.7 10^3/uL (1.5-6.6); NEUTROPHILS % (AUTO) 62.8 %; PLT - PLATELET COUNT 125 10^3/uL (130-450); RED BLOOD COUNT 3.51 10^6/uL (4.70-6.10); RED CELL DISTRIBUTION WIDTH 13.6 % (12.0-15.0); WHITE BLOOD COUNT 7.5 x10^3/uL (4.8-10.8)
[2021-04-03 05:16] LABS: ALBUMIN 2.5 g/dL (3.2-5.5); ALBUMIN/GLOBULIN RATIO 0.6 (1.0-2.2); BILIRUBIN,TOTAL 1.1 mg/dL (0.2-1.0); CALCIUM 7.9 mg/dL (8.5-10.3); CREATININE 1.5 mg/dL (0.6-1.2); POTASSIUM 3.4 mmol/L (3.5-5.0); TOTAL PROTEIN 6.4 g/dL (6.7-8.2)
[2021-04-03] MEDS: GABAPENTIN 100 MG CAPSULE PO SCH (09:35)
[2021-04-03] MEDS: carvediloL 12.5 MG TABLET PO SCH (09:35)
[2021-04-03] MEDS ORDERED: DEXTROSE 50% ABBOJECT 25 GM/50 ML SYRINGE IVP STA (09:49)
[2021-04-03 10:05] VITALS: BP 159/82
[2021-04-03] MEDS ORDERED: SODIUM CHLORIDE 0.9% IV ONE (11:00)
[2021-04-03] MEDS ORDERED: SINCALIDE IV ONE (11:00)
--- NOTE | 2021-04-03 13:49 | Nuclear Medicine Report ---
PROCEDURE: Hepatobiliary HIDA w/ Rx INDICATIONS: > acute chlecystitis RADIOPHARMACEUTICAL: 5.4 mCi Tc-99m meprofenin i.v. and 2.5 g sincalide i.v. TECHNIQUE: Following intravenous administration of Tc-99m meprofenin, sequential anterior abdominal images were obtained. To evaluate the contractile response of the gallbladder in response to Cholecys tokinin (CCK), 2.5 microgram sincalide (0.02 g/kg) was administered by slow intravenous infusion lesia roximately after the administration of the radiopharmaceutical. Sequential imaging was continued for 30 minutes after the start of CCK infusion. Gallbladder ejection fraction was calculated. COMPARISON: None. FINDINGS: Biliary scan: There is normal tracer uptake and excretion by the liver. There is normal visualizati on of the intrahepatic ducts, common bile duct, and gallbladder. There is normal tracer transit into the duodenum. CCK stimulation: There is appropriate contractile response of the gallbladder to CCK infusion. The calculated gallbladder ejection fraction is 93%; normal values are above 35%. IMPRESSION: 1. Normal biliary imaging study. 2. Normal contractile response of gallbladder to CCK infusion. No evidence of cholecystitis. Reviewed by: Ruperto Jamil MD on 04/03/2021 1:48 PM PST Approved by: Ruperto Jamil MD on 04/03/2021 1:48 PM PST Station ID: [id number]
--- NOTE | 2021-04-03 15:13 | ED Physician Documentation ---
ED Addendum - Addendum Addendum: 04/03/21 15:12 Patient has remained in the emergency department overnight pending a HIDA scan on the recommendation of surgery. The HIDA scan has been completed and shows an ejection fraction of 93% which is essentially normal. Patient was reexamined and he is free of abdominal pain at this time. No vomiting. He has remained hemodynamically stable. HIDA scan results were discussed with Dr. Palacio and patient is cleared to be discharged home. Given his history of cirrhosis the patient should be referred to GI. He is to continue taking all his other regular prescribed medications. Emergent return precautions were discussed. Final impression: abdominal pain and vomiting, Cirrhosis Edematous gallbladder
--- NOTE | 2021-04-04 09:44 | PROVIDER PROGRESS NOTE ---
Subjective - Prog Note Date Prog Note Date: 04/03/21 (delayed entry due to [employer] down) - Subjective Pt reports feeling: No change (denies upper abdominal pain. Mild left lower abd ominal discomfort which he thinks is from constipation. main problem is left hip pain) Objective - Vital Signs/Intake & Output Reviewed Vital Signs: Yes Intake & Output: Intake & Output 04/01/21 04/02/21 04/03/21 04/04/21 23:59 23:59 23:59 23:59 Intake Total 1100 1000 Output Total 4000 1600 Balance -2900 -600 - Objective General Appearance: positive: No acute distress, Alert Eyes Bilateral: positive: PERRL, EOMI, No scleral icterus Respiratory: positive: No respiratory distress Abdomen: positive: Non-tender, No distention Neurologic/Psychiatric: positive: Oriented x3 - Lab Results Fish Bones: 04/03/21 04:50 04/03/21 04:50 - Diagnostic Imaging Diagnostic Imaging Results: positive: Read independently (normal HIDA scan. Normal gallbladder function. No obstruction or cholecystitis) Assessment/Plan - Problem List (1) Left sided abdominal pain Impression: Normal colon by ct scan. Benign abdominal exam. No cholecystitis clinically or by HIDA scan. Mild gallbladder congestion due to ESLD and/ or right heart failure. He has history of both. Agree safe for discharge.
== END 2021-04-03 15:46 | disposition home or self-care (01) ==
LOC: EDUNIT# → ED 12:49
DX: R10.32 Left lower quadrant pain (principal); R11.2 Nausea with vomiting, unspecified; Z20.822 Contact with and (suspected) exposure to COVID-19; K80.20 Calculus of gallbladder without cholecystitis without obstruction; K70.30 Alcoholic cirrhosis of liver without ascites; F10.20 Alcohol dependence, uncomplicated; K76.6 Portal hypertension; D69.6 Thrombocytopenia, unspecified; N17.9 Acute kidney failure, unspecified; N32.0 Bladder-neck obstruction; I11.0 Hypertensive heart disease with heart failure; I50.810 Right heart failure, unspecified; M25.552 Pain in left hip; M79.605 Pain in left leg; E11.42 Type 2 diabetes mellitus with diabetic polyneuropathy; E11.51 Type 2 diabetes mellitus with diabetic peripheral angiopathy without gangrene; Z79.4 Long term (current) use of insulin; I25.10 Atherosclerotic heart disease of native coronary artery without angina pectoris; Z95.5 Presence of coronary angioplasty implant and graft; E66.01 Morbid (severe) obesity due to excess calories; Z68.41 Body mass index [BMI] 40.0-44.9, adult; Z89.511 Acquired absence of right leg below knee; Z99.3 Dependence on wheelchair; Z79.82 Long term (current) use of aspirin
CPT/HCPCS: 36415; 51702; 74176; 76705; 78227; 80053; 81001; 83605; 83690; 83880; 84484; 85025; 85610; 87631; 93005; 96365; 96375; 99284; 99285; A9270; G0480; J7040; 0202U; 80320; 81003; 87086

== ENCOUNTER 2021-07-01 01:22 | Outpatient (CLI) | payer MEDICARE, OTHER | END 2021-07-01 01:23 | disposition critical access hospital (66) | LOC: EMS 01:22 | DX: R25.1 Tremor, unspecified (principal); R41.82 Altered mental status, unspecified; R63.1 Polydipsia; E11.8 Type 2 diabetes mellitus with unspecified complications | CPT/HCPCS: A0425; A0429 ==

== ENCOUNTER 2021-07-01 01:38 | Emergency (ER) | payer MEDICARE, OTHER ==
--- NOTE | 2021-07-01 01:53 | ED Physician Documentation ---
PD HPI ALTERED MENTAL STATUS - Stated complaint Stated Complaint: AMS, TREMORS, DM - Chief complaint Chief Complaint: Neuro - History obtained from History obtained from: Patient, Family, EMS - History of Present Illness Timing - onset: Today Timing - details: Other (unknown onset of drowsy, confused, shaky. Family talked with him and thought he seemed confused. Lives with roommate, who called EMS. Blood sugar normal enroute.) Quality / character: Less responsive, Confused Associated symptoms: No: Fever, Headache Contributing factors: Diabetic. 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 denies: Vomiting, Diarrhea Neurologic: reports: Generalized weakness. denies: Headache PD PAST MEDICAL HISTORY - Past Medical History Cardiovascular: Hypertension, High cholesterol, Coronary artery disease, Peripheral Vascular Disease, [place] Respiratory: COPD, Shortness of breath Neuro: Peripheral neuropathy Endocrine/Autoimmune: Type 2 diabetes GI: GERD : Nocturia, Frequency, Kidney stones Psych: Anxiety, Panic attacks Musculoskeletal: Fibromyalgia, Chronic back pain - Past Surgical History Past Surgical History: Yes Ortho: Amputation Cardiovascular: Coronary stent HEENT: Cataracts - Present Medications Home Medications: Ambulatory Orders Medication Instructions Recorded Confirmed Loratadine 10 mg PO DAILY 11/07/12 07/01/21 Atorvastatin [Lipitor] 40 mg PO DAILY PM #30 08/26/17 07/01/21 Spironolactone [Aldactone] 25 mg PO DAILY #30 tablet 08/26/17 07/01/21 carvediloL [Coreg] 25 mg PO BID #60 08/26/17 07/01/21 Furosemide 40 mg PO BID 12/30/17 07/01/21 Gabapentin [Neurontin] 300 mg PO TID 06/01/18 07/01/21 Losartan [Cozaar] 50 mg PO DAILY 06/01/18 07/01/21 Insulin Glargine [Lantus Solostar] 110 unit SUBQ BID 10/02/20 07/01/21 Tamsulosin [Flomax] 0.4 mg PO DAILY 30 Days #30 cap 10/02/20 07/01/21 Duloxetine HCl [Cymbalta] 60 mg PO HS 10/05/20 07/01/21 Amox/Clav 875/125 [Augmentin] 1 each PO Q12H #10 tablet 07/01/21 - Allergies Allergies/Adverse Reactions: Allergies Allergy/AdvReac Type Severity Reaction Status Date / Time pregabalin [From Lyrica] Allergy Intermediate unknown Verified 07/01/21 01:48 simvastatin [From Zocor] Allergy Intermediate Nausea Verified 07/01/21 01:48 sulfamethoxazole Allergy Intermediate unknown Verified 07/01/21 01:48 [From Septra] trimethoprim [From Septra] Allergy Intermediate unknown Verified 07/01/21 01:48 tetracycline [Tetracycline] Allergy Rash Verified 07/01/21 01:48 - Social History Does the pt smoke?: No Smoking Status: Never smoker Does the pt drink ETOH?: Yes Does the pt have substance abuse?: Yes - Immunizations Immunizations are current?: Yes - POLST Patient has POLST: No POLST Status: Full Code PD ED PE NORMAL - Vitals Vital signs reviewed: Yes - General General: No acute distress, Well developed/nourished, Other. No: Alert and oriented X 3 (somnolent with poor interaction, but does answer simple questions. ) - Neck Neck: Supple, no meningeal sign, No adenopathy - Cardiac Cardiac: RRR, No murmur - Respiratory Respiratory: Clear bilaterally - Abdomen Abdomen: Other (distended with dullness to percussion. BMI 38. fullness in suprapubic area. No focal tenderness, but general complaint of pain with palpation. ) - Derm Derm: Warm and dry. No: Normal color (somewhat pale) - Extremities Extremities: Other (right BKA noted without infection at the stump. Bandage left lower leg mid vera, without redness/warmth around it. Left index finger prior amputation also noted. ) - Neuro Neuro: No motor deficit, No sensory deficit Results - Vitals Vitals: Vital Signs - 24 hr 07/01/21 07/01/21 07/01/21 01:43 04:11 04:51 Temperature 36.7 C Heart Rate 75 74 73 Respiratory 15 12 11 L Rate Blood Pressure 130/94 H 135/72 H 143/83 H O2 Saturation 95 95 94 07/01/21 06:17 Temperature Heart Rate 73 Respiratory 11 L Rate Blood Pressure 160/86 H O2 Saturation 96 Oxygen O2 Source Room air - Labs Labs: Laboratory Tests 07/01/21 07/01/21 07/01/21 02:25 02:29 02:29 WBC 5.1 RBC 3.55 L Hgb 9.9 L Hct 31.0 L MCV 87.3 MCH 27.9 MCHC 31.9 L RDW 15.0 Plt Count 116 L MPV 9.4 Neut # (Auto) 3.1 Lymph # (Auto) 1.2 L [place] # (Auto) 0.6 Eos # (Auto) 0.1 Baso # (Auto) 0.1 Absolute Nucleated RBC 0.00 Nucleated RBC % 0.0 Sodium 138 Potassium 3.9 Chloride 103 Carbon Dioxide 26 Anion Gap 9.0 BUN 22 H Creatinine 1.3 H Estimated GFR (MDRD) 54 L Glucose 134 H Lactic Acid Calcium 8.7 Magnesium 2.0 Total Bilirubin 0.7 AST 35 ALT 38 Alkaline Phosphatase 112 B-Natriuretic Peptide Total Protein 7.1 Albumin 2.8 L Globulin 4.3 H Albumin/Globulin Ratio 0.7 L Lipase 22 Urine Color YELLOW Urine Clarity CLEAR Urine pH 7.0 Ur Specific [place] 1.015 Urine Protein 100 H Urine Glucose (UA) NEGATIVE Urine Ketones NEGATIVE Urine Occult Blood NEGATIVE Urine Nitrite NEGATIVE Urine Bilirubin NEGATIVE Urine Urobilinogen 0.2 (NORMAL) Ur Leukocyte Esterase NEGATIVE Urine RBC None Seen Urine WBC 0-3 Ur Squamous Epith Cells RARE Squamous Urine Bacteria None Seen Ur Microscopic Review INDICATED Urine Culture Comments NOT INDICATED Ethyl Alcohol < 5.0 SARS-CoV-2 (PCR) 07/01/21 07/01/21 07/01/21 02:29 02:29 05:24 WBC RBC Hgb Hct MCV MCH MCHC RDW Plt Count MPV Neut # (Auto) Lymph # (Auto) [place] # (Auto) Eos # (Auto) Baso # (Auto) Absolute Nucleated RBC Nucleated RBC % Sodium Potassium Chloride Carbon Dioxide Anion Gap BUN Creatinine Estimated GFR (MDRD) Glucose Lactic Acid 1.2 Calcium Magnesium Total Bilirubin AST ALT Alkaline Phosphatase B-Natriuretic Peptide 86 Total Protein Albumin Globulin Albumin/Globulin Ratio Lipase Urine Color Urine Clarity Urine pH Ur Specific [place] Urine Protein Urine Glucose (UA) Urine Ketones Urine Occult Blood Urine Nitrite Urine Bilirubin Urine Urobilinogen Ur Leukocyte Esterase Urine RBC Urine WBC Ur Squamous Epith Cells Urine Bacteria Ur Microscopic Review Urine Culture Comments Ethyl Alcohol SARS-CoV-2 (PCR) NOT DETECTED - Rads (name of study) abd/pelvic CT Radiology: Prelim report reviewed (enlarged liver with ascites. lower lungs with some ground glass opacities concerning for multifocal pneumonia vs. CHF.), See rad report PD MEDICAL DECISION MAKING - ED course Complexity details: reviewed results (got CT and labs without significant abnormal. ), re-evaluated patient (he is much more alert and conversant. He states he thinks someone may have mixed up his medications on the shelf that he keeps them. Denies alcohol recently. No new Rx/meds. ), considered differential (consider med effect, med overdose, alcohol, hyponatremia, sepsis, ICH, among many possibilities. ) ED course: Altered mentation with confusion and somnolence that improved over time here in the ER. No signs of more significant cause. Consider possibility of mistake in medication doses as he does have them just on the shelf and takes them at night. He does not have a med pack. He is doing better here with alertness and interaction. His CT scan did not show any acute abdomen problem. However there was some appearance of groundglass infiltrates. We did do a Covid swab then to see if he may be having a pneumonitis develop. If so he may be a candidate for some of the antiviral medicine so pending the results at this time. Otherwise he does seem improved enough I would think of discharging home. He should be careful of medication dosages and I would suggest a weekly neighborhood planner/med pack. Covid result came back negative at this point he does appear well and is alert and conversant and seems appropriate. The CT scan did suggest concern for pneumonia on x-ray so it seems appropriate to cover with antibiotics in case. He states he had had a little bronchial coughing and sputum recently on requestioning. Otherwise I think the patient is safe for discharge home. He will call for a ride. Departure - Departure Disposition: 01 Home, Self Care Clinical Impression: Lung infiltrate on CT, Urinary retention Altered mental status Qualifiers: Altered mental status type: stupor Qualified Code(s): R40.1 - Stupor Condition: Stable Record reviewed to determine appropriate education?: Yes Instructions: ED Pneumonia Adult, ED Retention Urinary Male Prescriptions: Amox/Clav 875/125 [Augmentin] 1 each PO Q12H #10 tablet Comments: You appear to be appropriately awake alert and conversant at this time. Unclear the cause of your altered mentation last evening. Be sure to have your medications in the proper spot. I would suggest perhaps a med pack from the pharmacy with a are put out in weekly box by day and time of day. Alternatively you can scrap picker your own and put them out in the containers ahead of time. This would reduce the potential for inadvertent medication. I do not know if that was the cause of your symptoms but he did seem to clear out well with just some time and fluids here. Consider also possible under hydration or such. Your CT scan of the head was normal. CT scan of the abdomen did not show any acute abnormalities. You do have the enlarged liver and fluid in the abdomen. The scan did show some infiltrates in the lower part of the lung suggestive of pneumonia. Your Covid test is negative. We would cover with some antibiotics for the possibility of early brewing pneumonia. Early infection could have caused the confusion and somnolence last night but I would not expect it to clear up so easily. I transmitted your antibiotic prescription to [facility]. Recheck if further problems develop over the next few days. You did have a large amount of urine in the bladder as well. I would suggest leaving the catheter in for draining the bladder. Follow-up with your primary care or if you have a urologist to discuss the timing of removal. Be sure to be taking your tamsulosin daily. I would suggest even taking it twice daily for the next week.
[2021-07-01] MEDS ORDERED: LIDOCAINE 2% URO-JET 5 ML SYRINGE UR STA (02:05)
[2021-07-01] MEDS ORDERED: IOVERSOL 320 100 ML VIAL IVP ONE ×2 (02:31→03:27)
[2021-07-01 02:37] LABS: BASOPHILS # (AUTO) 0.1 10^3/uL (0.0-0.1); EOSINOPHILS # (AUTO) 0.1 10^3/uL (0.0-0.7); EOSINOPHILS % (AUTO) 2.1 %; HGB - HEMOGLOBIN 9.9 g/dL (14.0-18.0); LYMPHOCYTES # (AUTO) 1.2 10^3/uL (1.5-3.5); LYMPHOCYTES % (AUTO) 23.6 %; MEAN CORPUSCULAR HEMOGLOBIN 27.9 pg (27.0-31.0); MEAN CORPUSCULAR HGB CONC 31.9 g/dL (32.0-36.0); MEAN CORPUSCULAR VOLUME 87.3 fL (80.0-94.0); MEAN PLATELET VOLUME 9.4 fL (7.4-11.4); MONOCYTES # (AUTO) 0.6 10^3/uL (0.0-1.0); MONOCYTES % (AUTO) 11.7 %; NEUTROPHILS # (AUTO) 3.1 10^3/uL (1.5-6.6); NEUTROPHILS % (AUTO) 61.4 %; PLT - PLATELET COUNT 116 10^3/uL (130-450); RED BLOOD COUNT 3.55 10^6/uL (4.70-6.10); WHITE BLOOD COUNT 5.1 x10^3/uL (4.8-10.8)
[2021-07-01 02:38] LABS: BILIRUBIN,URINE NEGATIVE (NEGATIVE); GLUCOSE, URINE (UA) NEGATIVE (NEGATIVE); KETONES,URINE (UA) NEGATIVE (NEGATIVE); LEUKOCYTE ESTERASE, URINE NEGATIVE (NEGATIVE); NITRITE,URINE NEGATIVE (NEGATIVE); OCCULT BLOOD,URINE NEGATIVE (NEGATIVE); PROTEIN,URINE 100 mg/dL (NEGATIVE); UROBILINOGEN,URINE 0.2 (NORMAL) E.U./dL (NORMAL)
[2021-07-01 02:40] LABS: CLARITY,URINE CLEAR (CLEAR)
[2021-07-01 02:47] LABS: ALBUMIN 2.8 g/dL (3.2-5.5); ALBUMIN/GLOBULIN RATIO 0.7 (1.0-2.2); ALKALINE PHOSPHATASE 112 IU/L (42-121); ALT ALANINE AMINOTRANSFERASE 38 IU/L (10-60); AST ASPARTATE AMINOTRANSFERASE 35 IU/L (10-42); BILIRUBIN,TOTAL 0.7 mg/dL (0.2-1.0); BUN - BLOOD UREA NITROGEN 22 mg/dL (6-20); CALCIUM 8.7 mg/dL (8.5-10.3); CARBON DIOXIDE - CO2 26 mmol/L (21-32); CHLORIDE 103 mmol/L (101-111); CREATININE 1.3 mg/dL (0.6-1.2); ETOH - ETHANOL < 5.0 mg/dL; GFR - MDRD 54 (>89); GLUCOSE 134 mg/dL (70-100); LIPASE 22 U/L (22-51); POTASSIUM 3.9 mmol/L (3.5-5.0); SODIUM 138 mmol/L (135-145); TOTAL PROTEIN 7.1 g/dL (6.7-8.2)
[2021-07-01 02:54] LABS: BACTERIA,URINE None Seen /HPF (None Seen); RBC,URINE None Seen /HPF (0-5); SQUAMOUS EPITHELIAL CELL,UR RARE Squamous (<= Few); WBC,URINE 0-3 /HPF (0-3)
[2021-07-01] MEDS ORDERED: LACTATED RINGERS 1,000 ML IV STA (04:37)
[2021-07-01] MEDS ORDERED: AMOX/CLAV 875 MG/125 MG TABLET PO STA (06:51)
--- NOTE | 2021-07-01 07:21 | CT Report ---
PROCEDURE: HEAD WO INDICATIONS: confused and altered mentation tonight TECHNIQUE: Noncontrast 4.5 mm thick angled axial sections acquired from the foramen magnum to the vertex. For r adiation dose reduction, the following was used: automated exposure control, adjustment of mA and/or kV according to patient size. COMPARISON: None. FINDINGS: Image quality: Excellent. CSF spaces: Basal cisterns are patent. No extra-axial fluid collections. Ventricles are normal in size and shape. Subcortical and periventricular hypodensities are consistent with microvascular isch emic disease and age-related cerebral volume loss. Brain: No midline shift. No intracranial masses or hemorrhage. Pedroza-white matter interface is norm al. Skull and face: Calvarium and visualized facial bones are intact, without suspicious lesions. Sinuses: Visualized sinuses and mastoids are clear. IMPRESSION: No acute intracranial abnormality Findings above correspond with preliminary findings by [employer]. Reviewed by: Shahriar Juarez on 07/01/2021 7:20 AM PDT Approved by: Shahriar Juarez on 07/01/2021 7:20 AM PDT Station ID: [id number]
[2021-07-01 08:07] VITALS: BP 160/91
--- NOTE | 2021-07-01 09:10 | CT Report ---
PROCEDURE: CT abdomen pelvis with contrast INDICATIONS: CONTRAST: IV CONTRAST: Optiray 320 ml: 100 PO CONTRAST: *NO PO CONTRAST TECHNIQUE: After the administration of contrast, 5 mm thick sections acquired from the diaphragms to the sym physis. 5 mm thick coronal and sagittal reformats were acquired. For radiation dose reduction, the following was used: automated exposure control, adjustment of mA and/or kV according to patient size . COMPARISON: 04/02/2021 FINDINGS: Limitations: Images are degraded by patient positioning Lower thorax: Mild bibasilar atelectasis. Coronary vascular calcifications noted. Liver: Hepatic capsule shows microscalloping consistent with hepatic cirrhosis. Biliary system: No dependent cholelithiasis present. No pericholecystic inflammatory change present t o suggest acute cholecystitis. Pancreas: Unremarkable without mass or inflammation evident. Spleen: Spleen is enlarged at 16 cm Adrenals: Normal morphology and density. Reproductive system: Unremarkable as visualized. Urinary system: Right renal scarring and atrophy present with subcentimeter nonobstructing renal calc jerry. Bilateral renal cysts present, largest on the left measures 2.5 cm. Evaluation is limited due to artifact. Bladder unremarkable. Gastrointestinal system: The bowel appears unremarkable with no evidence of bowel obstruction or inf lammation. The stomach appears unremarkable. Appendix: No findings to suggest acute appendicitis. Peritoneal spaces: No mesenteric or retroperitoneal adenopathy. No free air. No free fluid. Vasculature: The IVC, aorta and iliac vasculature are unremarkable. Musculoskeletal: Normal bone mineralization. No acute fractures. Abdominal wall intact without van dence of ventral or inguinal hernias. IMPRESSION: 1. Mild bibasal atelectasis and or infiltrate 2. Cholelithiasis without evidence of acute cholecystitis. 3. Hepatic cirrhosis and mild splenomegaly. 4. Limited exam Note: Final report is concordant with preliminary report provided by [employer] Reviewed by: Juarez Charles MD on 07/01/2021 8:09 AM DARRIAN Approved by: Juarez Charles MD on 07/01/2021 8:09 AM DARRIAN Station ID: [id number]
--- NOTE | 2021-07-01 09:11 | XRAY Report ---
PROCEDURE: Chest 1 View X-Ray INDICATIONS: dyspnea TECHNIQUE: One view of the chest was acquired. COMPARISON: 10/10/2020 FINDINGS: Surgical changes and devices: None. Lungs and pleura: No pleural effusions or pneumothorax. Lungs are clear. Mediastinum: Mediastinal contours appear normal. Heart size is enlarged. Bones and chest wall: No suspicious bony lesions. Overlying soft tissues appear unremarkable. Old healed left-sided rib fracture IMPRESSION: Cardiomegaly without acute cardiopulmonary findings Note: Final report is concordant with preliminary report provided by [employer] Reviewed by: Juarez Charles MD on 07/01/2021 8:10 AM DARRIAN Approved by: Juarez Charles MD on 07/01/2021 8:10 AM AKDT Station ID: [id number]
== END 2021-07-01 09:19 | disposition home or self-care (01) ==
LOC: EDUNIT# → ED 01:38
DX: Z20.822 Contact with and (suspected) exposure to COVID-19 (principal); R40.1 Stupor; R33.9 Retention of urine, unspecified; R91.8 Other nonspecific abnormal finding of lung field
CPT/HCPCS: 36415; 70450; 71045; 74177; 80053; 81001; 83605; 83690; 83735; 83880; 85025; 87635; 96360; 96361; 99283; 99284; A9270; G0480; J7120; Q9967; 80320; 81003; 87086

== ENCOUNTER 2022-01-10 11:41 | Outpatient (CLI) | payer MEDICARE, OTHER ==
--- NOTE | 2022-01-10 16:39 | XRAY Report ---
PROCEDURE: Foot 3 View LT INDICATIONS: WOUND INFECTION TECHNIQUE: 2 views of the foot were acquired. COMPARISON: None FINDINGS: Bones: Severe degenerative changes of the hindfoot with remodeling of the calcaneus. No acute fractur es or dislocations. No suspicious bony lesions. Soft tissues: No tibiotalar joint effusion. Achilles tendon appears normal. IMPRESSION: 1. Generative changes of the hindfoot with remodeling of the calcaneus. 2. No acute abnormality. 3. No radiographic evidence of osteomyelitis. Reviewed by: Shahriar Juarez on 01/10/2022 4:38 PM PDT Approved by: Shahriar Juarez on 01/10/2022 4:38 PM PDT Station ID: [id number]
== END 2022-01-10 11:42 | disposition home or self-care (01) ==
LOC: DI 11:41
PROVIDERS: ATTEND Internal Medicine
DX: M19.072 Primary osteoarthritis, left ankle and foot (principal)

== ENCOUNTER 2022-02-23 12:16 | Outpatient (CLI) | payer MEDICARE, OTHER ==
--- NOTE | 2022-02-23 17:25 | XRAY Report ---
PROCEDURE: Foot 3 View LT INDICATIONS: R/O OSTEOMYELITIS TECHNIQUE: 3 views of the foot were acquired. COMPARISON: X-ray left foot, 01/10/2010 22 FINDINGS: Artifacts overlying the distal foot obscure distal second, third, fourth and fifth digits. Bones: No fractures or dislocations. No suspicious bony lesions. Chronic deformity of the calcaneus . Moderate degenerative joint disease is present inthe ankle and foot. Calcaneal spurring. Soft tissues: No tibiotalar joint effusion. Achilles tendon appears normal. IMPRESSION: 1. Artifacts overlying the distal foot partially obscured the foot. Cannot rule out osteomyelitis. If clinical suspicion continues, consider MRI with and without contrast or a triple phase bone scan for further evaluation. 2. Chronic deformity of calcaneus. 3. Moderate degenerative joint disease. Reviewed by: Bisi Whittington MD on 02/23/2022 5:24 PM PST Approved by: Bisi Whittington MD on 02/23/2022 5:24 PM PST Station ID: [id number]
== END 2022-02-23 12:17 | disposition home or self-care (01) ==
LOC: DI 12:16
PROVIDERS: ATTEND Nurse Practitioner
DX: E11.621 Type 2 diabetes mellitus with foot ulcer (principal); L97.522 Non-pressure chronic ulcer of other part of left foot with fat layer exposed; E11.628 Type 2 diabetes mellitus with other skin complications; Z79.4 Long term (current) use of insulin; M19.072 Primary osteoarthritis, left ankle and foot; M21.962 Unspecified acquired deformity of left lower leg

== ENCOUNTER 2022-06-28 10:07 | Outpatient (CLI) | payer MEDICARE, OTHER | END 2022-06-28 23:59 | disposition EMS.NT | LOC: EMS 10:07 | DX: R51.9 Headache, unspecified (principal); W05.0XXA Fall from non-moving wheelchair, initial encounter ==

== ENCOUNTER 2022-09-10 16:57 | Emergency (ER) | payer MEDICARE, OTHER ==
--- NOTE | 2022-09-10 17:49 | ED Physician Documentation ---
History of Present Illness - Stated complaint Stated Complaint: MALE GI - Chief complaint Chief Complaint: Abd Pain - History obtained from History obtained from: Patient - History of Present Illness Pain level max: 3 Pain level now: 2 - Additonal information Additional information: 77-year-old male states that he has had a mixture of bright and dark blood in his stool for the past 1 year. He states he has not seen anybody about it. Has not had a colonoscopy. He states that today he had a little bit of bright blood in the stool and so he thought he should get it checked out since it has been ongoing for a year. He is not short of breath. No chest pain. No lightheadedness or dizziness. He does not know what medications he takes. He is unsure if he is on a blood thinner or not. Patient does not know when his last colonoscopy was. Denies any fevers, vomiting. Review of Systems Constitutional: denies: Fever, Chills Throat: denies: Sore throat Cardiac: denies: Chest pain / pressure Respiratory: denies: Cough GI: denies: Vomiting, Diarrhea, Hematemesis : denies: Dysuria, Frequency, Hesitancy Skin: denies: Rash Musculoskeletal: denies: Neck pain, Back pain, Extremity pain Neurologic: denies: Headache PD PAST MEDICAL HISTORY - Past Medical History Cardiovascular: Hypertension, High cholesterol, Coronary artery disease, Peripheral Vascular Disease, [place] Respiratory: COPD, Shortness of breath Neuro: Peripheral neuropathy Endocrine/Autoimmune: Type 2 diabetes GI: GERD : Nocturia, Frequency, Kidney stones Psych: Anxiety, Panic attacks Musculoskeletal: Fibromyalgia, Chronic back pain - Past Surgical History Past Surgical History: Yes Ortho: Amputation (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) Cardiovascular: Coronary stent HEENT: Cataracts - Present Medications Home Medications: Ambulatory Orders Medication Instructions Recorded Confirmed Loratadine 10 mg PO DAILY 11/07/12 05/10/22 Atorvastatin [Lipitor] 40 mg PO DAILY PM #30 08/26/17 05/10/22 Spironolactone [Aldactone] 25 mg PO DAILY #30 tablet 08/26/17 05/10/22 carvediloL [Coreg] 25 mg PO BID #60 08/26/17 05/10/22 Furosemide 40 mg PO BID 12/30/17 05/10/22 Gabapentin [Neurontin] 300 mg PO TID 06/01/18 05/10/22 Losartan [Cozaar] 50 mg PO DAILY 06/01/18 05/10/22 Insulin Glargine [Lantus Solostar] 110 unit SUBQ BID 10/02/20 05/10/22 Tamsulosin [Flomax] 0.4 mg PO DAILY 30 Days #30 cap 10/02/20 05/10/22 Duloxetine HCl [Cymbalta] 60 mg PO HS 10/05/20 05/10/22 Cefadroxil [Duricef] 500 mg PO BID 7 Days #14 cap 08/01/22 - Allergies Allergies/Adverse Reactions: Allergies Allergy/AdvReac Type Severity Reaction Status Date / Time pregabalin [From Lyrica] Allergy Intermediate unknown Verified 09/10/22 17:10 simvastatin [From Zocor] Allergy Intermediate Nausea Verified 09/10/22 17:10 sulfamethoxazole Allergy Intermediate unknown Verified 09/10/22 17:10 [From Septra] trimethoprim [From Septra] Allergy Intermediate unknown Verified 09/10/22 17:10 tetracycline [Tetracycline] Allergy Rash Verified 09/10/22 17:10 - Social History Does the pt smoke?: No Smoking Status: Never smoker Does the pt drink ETOH?: Yes Does the pt have substance abuse?: Yes - Immunizations Immunizations are current?: Yes - POLST Patient has POLST: No POLST Status: Full Code PD ED PE NORMAL - Vitals Vital signs reviewed: Yes - General General: Alert and oriented X 3, No acute distress - HEENT HEENT: Moist mucous membranes - Neck Neck: Supple, no meningeal sign - Cardiac Cardiac: RRR, Strong equal pulses - Respiratory Respiratory: No respiratory distress, Clear bilaterally - Abdomen Abdomen: Normal bowel sounds, Soft, Non tender, Non distended - Rectal Rectal: Pt declined - Back Back: No spinal TTP - Derm Derm: Warm and dry - Extremities Extremities: No edema, No calf tenderness / cord - Neuro Neuro: Alert and oriented X 3 - Psych Psych: Normal mood, Normal affect Results - Vitals Vitals: Vital Signs - 24 hr 09/10/22 09/10/22 09/10/22 17:04 20:08 20:15 Temperature 37.1 C Heart Rate 76 68 Respiratory 20 Rate Blood Pressure 156/66 H O2 Saturation 97 100 09/10/22 20:39 Temperature Heart Rate Respiratory Rate Blood Pressure 159/89 H O2 Saturation Oxygen O2 Source Room air - Labs Labs: Laboratory Tests 09/10/22 09/10/22 09/10/22 17:57 17:57 17:57 WBC 4.9 RBC 3.28 L Hgb 9.7 L Hct 29.9 L MCV 91.2 MCH 29.6 MCHC 32.4 RDW 14.0 Plt Count 70 L MPV 9.5 Neut # (Auto) 3.0 Lymph # (Auto) 1.1 L [place] # (Auto) 0.5 Eos # (Auto) 0.2 Baso # (Auto) 0.0 Absolute Nucleated RBC 0.00 Nucleated RBC % 0.0 PT 11.4 INR 1.0 APTT 30.7 Sodium 143 Potassium 3.3 L Chloride 117 H Carbon Dioxide 22 Anion Gap 4.0 L BUN 41 H Creatinine 1.4 H Estimated GFR (MDRD) 49 L Glucose 166 H Calcium 8.4 L Total Bilirubin 0.4 AST 33 ALT 38 Alkaline Phosphatase 113 Total Protein 6.7 Albumin 2.7 L Globulin 4.0 Albumin/Globulin Ratio 0.7 L Lipase 25 - Rads (name of study) CT abdomen pelvis Relevant Findings:: Final report received, See rad report PD Medical Decision Making - ED course Complexity details: reviewed results, re-evaluated patient, considered differential, d/w patient ED course: 69-year-old male with reportedly intermittent blood in the stool over the past 1 year. He states he has not been previously evaluated for this. His CBC does not show any acute abnormalities. His hemoglobin of 9.7 is close to his normal baseline from April and June of this year. He had been down to 8.2 in the past. No acute findings on CT scan. No bloody bowel movements here. His creatinine is at his baseline. We will have him follow-up with his doctor for further care. No indication for emergent colonoscopy. Recommend that he follow-up with his doctor for a colonoscopy. Abdomen is soft, nontender nondistended on serial exam. Patient states he is not on any blood thinners. Patient counseled regarding signs and symptoms for which I believe and urgent re-evaluation would be necessary. Patient with good understanding of and agreement to plan and is comfortable going home at this time This document was made in part using voice recognition software. While efforts are made to proofread this document, sound alike and grammatical errors may occur. Departure - Departure Disposition: 01 Home, Self Care Clinical Impression: Hematochezia Condition: Good Instructions: ED Hematochezia Stable Follow-Up: Valeria Cabrales MD [Primary Care Provider] - Valeria Cabrales MD [Provider Admit Priv/Credential] - Comments: As we discussed, your blood counts are stable from prior. Your CT scan does not show any acute abnormalities. Your vital signs not show any acute abnormalities. You need to follow-up with your doctor for a urgent colonoscopy. Please return if you worsen including shortness of breath, lightheadedness, dizziness or other worsening symptoms Discharge Date/Time: 09/10/22 20:40
[2022-09-10 18:05] LABS: BASOPHILS % (AUTO) 0.8 %; EOSINOPHILS # (AUTO) 0.2 10^3/uL (0.0-0.7); EOSINOPHILS % (AUTO) 4.3 %; HCT - HEMATOCRIT 29.9 % (42.0-52.0); HGB - HEMOGLOBIN 9.7 g/dL (14.0-18.0); LYMPHOCYTES # (AUTO) 1.1 10^3/uL (1.5-3.5); MEAN CORPUSCULAR HEMOGLOBIN 29.6 pg (27.0-31.0); MEAN CORPUSCULAR HGB CONC 32.4 g/dL (32.0-36.0); MEAN CORPUSCULAR VOLUME 91.2 fL (80.0-94.0); MEAN PLATELET VOLUME 9.5 fL (7.4-11.4); MONOCYTES # (AUTO) 0.5 10^3/uL (0.0-1.0); MONOCYTES % (AUTO) 9.2 %; NEUTROPHILS % (AUTO) 62.3 %; PLT - PLATELET COUNT 70 10^3/uL (130-450); RED BLOOD COUNT 3.28 10^6/uL (4.70-6.10); WHITE BLOOD COUNT 4.9 x10^3/uL (4.8-10.8)
[2022-09-10 18:14] LABS: ALBUMIN 2.7 g/dL (3.2-5.5); ALBUMIN/GLOBULIN RATIO 0.7 (1.0-2.2); BILIRUBIN,TOTAL 0.4 mg/dL (0.2-1.0); CALCIUM 8.4 mg/dL (8.5-10.3); CREATININE 1.4 mg/dL (0.6-1.2); POTASSIUM 3.3 mmol/L (3.5-5.0); TOTAL PROTEIN 6.7 g/dL (6.7-8.2)
[2022-09-10 18:33] LABS: PT - PROTHROMBIN TIME 11.4 secs (9.9-12.6)
[2022-09-10 18:40] LABS: PARTIAL THROMBOPLASTIN TIME 30.7 secs (24.9-33.3)
[2022-09-10] MEDS ORDERED: iohexoL-300 100 ML VIAL ONE (18:41)
[2022-09-10] MEDS ORDERED: SODIUM CHLORIDE 0.9% 1,000 ML IV STA (18:46)
--- NOTE | 2022-09-10 19:43 | CT Report ---
PROCEDURE: ABDOMEN/PELVIS W INDICATIONS: LLQ abd pain, blood in stool CONTRAST: 100mL Omni 300 TECHNIQUE: After the administration of IV contrast, 5 mm thick sections acquired from the diaphragms to the symp hysis. 5 mm thick coronal and sagittal reformats were acquired. For radiation dose reduction, the f ollowing was used: automated exposure control, adjustment of mA and/or kV according to patient size. COMPARISON: CT abdomen pelvis 07/01/2021 FINDINGS: Image quality: Excellent. Lung bases and heart: Unremarkable. Liver: No solid mass. Hepatic steatosis is present. There is mild appearance of hepatic nodularity. Gallbladder and biliary tree: Dependent luminal stones are present without wall thickening, unchanged . Spleen: No splenomegaly. Pancreas: No pancreatic ductal dilation. Adrenals: No adrenal nodule. Kidneys and ureters: No hydronephrosis. Asymmetric right renal atrophy. Nonobstructing bilateral yany l calculi, unchanged. There is trace prominence of the left renal collecting system. Bilateral simple renal cysts are again identified. Bowel and peritoneum: No bowel distension. No pathologic free fluid. Lymph nodes: No central or retroperitoneal adenopathy. Vessels: No infrarenal aortic aneurysm. PELVIS Reproductive organs: Unremarkable. Bladder: There is a mild appearance of asymmetric thickening within the anterior inferior bladder. Th is was not present in 2021. Bladder is fairly well distended. Pelvic lymph nodes: No pelvic adenopathy by size criteria. Bones: No aggressive osseous abnormality. Other: Fat-containing ventral hernias are present. IMPRESSION: Bilateral nonobstructing renal calculi. Trace prominence of the left renal collecting system. No stones are identified within the ureter or b ladder. Recently passed stone cannot be definitively excluded. Reviewed by: Anabelle Baker MD on 09/10/2022 7:42 PM PDT Approved by: Anabelle Baker MD on 09/10/2022 7:42 PM PDT Station ID: [id number]
[2022-09-10 20:41] VITALS: BP 159/89
[2022-09-10] MEDS ORDERED: iohexoL-300 100 ML VIAL IVP ONE (21:31)
== END 2022-09-10 20:40 | disposition home or self-care (01) ==
LOC: ED 16:57
DX: K92.1 Melena (principal); I10 Essential (primary) hypertension; E78.00 Pure hypercholesterolemia, unspecified; I25.10 Atherosclerotic heart disease of native coronary artery without angina pectoris; J44.9 Chronic obstructive pulmonary disease, unspecified; E11.42 Type 2 diabetes mellitus with diabetic polyneuropathy; Z79.899 Other long term (current) drug therapy; Z79.4 Long term (current) use of insulin
CPT/HCPCS: 36415; 74177; 80053; 83690; 85025; 85610; 85730; 99283; 99284; Q9967

== ENCOUNTER 2022-11-26 18:36 | Outpatient (CLI) | payer MEDICARE, OTHER | END 2022-11-26 18:37 | disposition critical access hospital (66) | LOC: EMS 18:36 | DX: R53.1 Weakness (principal); R50.9 Fever, unspecified; R11.10 Vomiting, unspecified | CPT/HCPCS: A0425; A0429 ==

== ENCOUNTER 2022-11-26 18:59 | Inpatient (IN) | payer MEDICARE, OTHER ==
--- NOTE | 2022-11-26 19:10 | ED Physician Documentation ---
PD HPI FEVER - Stated complaint Stated Complaint: WEAKNESS, N/V - History obtained from History obtained from: Patient, EMS - Additional information Additional information: 77-year-old gentleman with history of IDDM, obesity, alcohol abuse, coronary and peripheral vascular disease, right BKA from chronic osteomyelitis. He has been sick for 2 days with fever to 102, vomiting and diarrhea, left lower quadrant pain. He is in wound care for the left leg but nothing there is really bothering him. He was very weak and today could not get off the floor and he was there for about 3 hours. No sick contacts. 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) Cardiovascular: Coronary stent HEENT: Cataracts - Present Medications Home Medications: Ambulatory Orders Medication Instructions Recorded Confirmed Loratadine 10 mg PO DAILY 11/07/12 05/10/22 Atorvastatin [Lipitor] 40 mg PO DAILY PM #30 08/26/17 05/10/22 Spironolactone [Aldactone] 25 mg PO DAILY #30 tablet 08/26/17 05/10/22 carvediloL [Coreg] 25 mg PO BID #60 08/26/17 05/10/22 Furosemide 40 mg PO BID 12/30/17 05/10/22 Gabapentin [Neurontin] 300 mg PO TID 06/01/18 05/10/22 Losartan [Cozaar] 50 mg PO DAILY 06/01/18 05/10/22 Insulin Glargine [Lantus Solostar] 110 unit SUBQ BID 10/02/20 05/10/22 Tamsulosin [Flomax] 0.4 mg PO DAILY 30 Days #30 cap 10/02/20 05/10/22 Duloxetine HCl [Cymbalta] 60 mg PO HS 10/05/20 05/10/22 Cefadroxil [Duricef] 500 mg PO BID 7 Days #14 cap 08/01/22 Cefadroxil [Duricef] 500 mg PO BID 7 Days #14 cap 11/05/22 - Allergies Allergies/Adverse Reactions: Allergies Allergy/AdvReac Type Severity Reaction Status Date / Time pregabalin [From Lyrica] Allergy Intermediate unknown Verified 09/10/22 17:10 simvastatin [From Zocor] Allergy Intermediate Nausea Verified 11/26/22 19:08 sulfamethoxazole Allergy Intermediate unknown Verified 11/26/22 19:08 [From Septra] trimethoprim [From Septra] Allergy Intermediate unknown Verified 11/26/22 19:08 tetracycline [Tetracycline] Allergy Rash Verified 11/26/22 19:08 - Social History Does the pt smoke?: No Smoking Status: Never smoker Does the pt drink ETOH?: Yes Does the pt have substance abuse?: Yes - Immunizations Immunizations are current?: Yes - POLST Patient has POLST: No POLST Status: Full Code PD ED PE NORMAL - Vitals Vital signs reviewed: Yes - General General: Alert and oriented X 3, No acute distress - HEENT HEENT: Pharynx benign - Neck Neck: Supple, no meningeal sign, No bony TTP - Cardiac Cardiac: RRR, Other (3 out of 6 decrescendo systolic murmur) - Respiratory Respiratory: No respiratory distress, Clear bilaterally - Abdomen Abdomen: Normal bowel sounds, Soft, Other (Tender in the left lower quadrant without surgical signs) - Derm Derm: Normal color, Warm and dry - Extremities Extremities: Other (Right BKA, left leg dressed from wound care and undressed, no infection of small sores there.) - Neuro Neuro: Alert and oriented X 3, Normal speech Results - Vitals Vitals: Vital Signs - 24 hr 11/26/22 11/26/22 11/26/22 19:08 19:40 20:10 Temperature 37.9 C Heart Rate 84 91 90 Respiratory 22 20 20 Rate Blood Pressure 133/59 H 133/59 H 117/64 O2 Saturation 97 96 11/26/22 11/26/22 11/26/22 20:30 21:00 21:11 Temperature Heart Rate 86 87 81 Respiratory 22 22 18 Rate Blood Pressure 111/53 L 111/57 L O2 Saturation 93 95 98 Oxygen O2 Source Room air - Labs Labs: Laboratory Tests 11/26/22 11/26/22 11/26/22 19:35 19:40 19:40 WBC 6.9 RBC 3.44 L Hgb 9.4 L Hct 30.3 L MCV 88.1 MCH 27.3 MCHC 31.0 L RDW 13.5 Plt Count 56 L MPV 10.1 Neut # (Auto) 5.7 Lymph # (Auto) 0.5 L [place] # (Auto) 0.5 Eos # (Auto) 0.0 Baso # (Auto) 0.0 Absolute Nucleated RBC 0.00 Nucleated RBC % 0.0 Sodium 133 L Potassium 4.0 Chloride 103 Carbon Dioxide 24 Anion Gap 6.0 BUN 34 H Creatinine 2.6 H Estimated GFR (MDRD) 24 L Glucose 143 H Lactic Acid Calcium 8.7 Total Bilirubin 0.9 AST 60 H ALT 31 Alkaline Phosphatase 115 Total Creatine Kinase 2971 H* Total Protein 7.2 Albumin 3.2 Globulin 4.0 Albumin/Globulin Ratio 0.8 L Urine Color Urine Clarity Urine pH Ur Specific [place] Urine Protein Urine Glucose (UA) Urine Ketones Urine Occult Blood Urine Nitrite Urine Bilirubin Urine Urobilinogen Ur Leukocyte Esterase Urine RBC Urine WBC Ur Squamous Epith Cells Urine Bacteria Urine Culture Comments Nasal Adenovirus (PCR) NOT DETECTED Nasal B. parapertussis DNA (PCR) NOT DETECTED Nasal Coronavir 229E PCR NOT DETECTED Nasal Coronavir HKU1 PCR NOT DETECTED Nasal Coronavir NL63 PCR NOT DETECTED Nasal Coronavir OC43 PCR NOT DETECTED Nasal Enterovir/Rhinovir PCR NOT DETECTED Nasal Influenza B PCR NOT DETECTED Nasal Influenza A PCR NOT DETECTED Nasal Parainfluen 1 PCR NOT DETECTED Nasal Parainfluen 2 PCR NOT DETECTED Nasal Parainfluen 3 PCR NOT DETECTED Nasal Parainfluen 4 PCR NOT DETECTED Nasal RSV (PCR) NOT DETECTED Nasal B.pertussis DNA PCR NOT DETECTED Nasal C.pneumoniae (PCR) NOT DETECTED [place] Human Metapneumo PCR NOT DETECTED Nasal M.pneumoniae (PCR) NOT DETECTED Nasal SARS-CoV-2 (PCR) NOT DETECTED 11/26/22 11/26/22 19:40 19:50 WBC RBC Hgb Hct MCV MCH MCHC RDW Plt Count MPV Neut # (Auto) Lymph # (Auto) [place] # (Auto) Eos # (Auto) Baso # (Auto) Absolute Nucleated RBC Nucleated RBC % Sodium Potassium Chloride Carbon Dioxide Anion Gap BUN Creatinine Estimated GFR (MDRD) Glucose Lactic Acid 1.3 Calcium Total Bilirubin AST ALT Alkaline Phosphatase Total Creatine Kinase Total Protein Albumin Globulin Albumin/Globulin Ratio Urine Color YELLOW Urine Clarity HAZY Urine pH 5.5 Ur Specific [place] 1.020 Urine Protein >=300 H Urine Glucose (UA) NEGATIVE Urine Ketones NEGATIVE Urine Occult Blood LARGE H Urine Nitrite NEGATIVE Urine Bilirubin NEGATIVE Urine Urobilinogen 1 (NORMAL) Ur Leukocyte Esterase LARGE H Urine RBC 11-25 H Urine WBC >25 H Ur Squamous Epith Cells NONE SEEN Urine Bacteria Moderate H Urine Culture Comments INDICATED Nasal Adenovirus (PCR) Nasal B. parapertussis DNA (PCR) Nasal Coronavir 229E PCR Nasal Coronavir HKU1 PCR Nasal Coronavir NL63 PCR Nasal Coronavir OC43 PCR Nasal Enterovir/Rhinovir PCR Nasal Influenza B PCR Nasal Influenza A PCR Nasal Parainfluen 1 PCR Nasal Parainfluen 2 PCR Nasal Parainfluen 3 PCR Nasal Parainfluen 4 PCR Nasal RSV (PCR) Nasal B.pertussis DNA PCR Nasal C.pneumoniae (PCR) [place] Human Metapneumo PCR Nasal M.pneumoniae (PCR) Nasal SARS-CoV-2 (PCR) PD Medical Decision Making - ED course ED course: 77-year-old gentleman presents with generalized weakness, fever, and was down on the ground at home for several hours. He has left lower quadrant tenderness. He is in chronic wound care but does not appear acutely infected. Work-up in the emergency department demonstrates total white count of 6.9, hemoglobin of 9.4 and he has been anemic, platelet count of 56 which has been trending down lately. His CMP is notable for acute on chronic renal failure, his usual creatinine is in the mid mid ones, and he is found to be in rhabdomyolysis with a CK of 2971. Urinalysis looking infected, and Unasyn was chosen for coverage given that the last few positive urine cultures were Enterococcus. [facility] respiratory panel negative for COVID and other viral pathogens. Care to Dr. Jimenez at shift change pending CT read after which anticipate admission. Departure - Departure Clinical Impression: Anemia, Insulin dependent diabetes mellitus, Acute kidney injury superimposed on chronic kidney disease, UTI (urinary tract infection), Left sided abdominal pain Condition: Serious
--- NOTE | 2022-11-26 19:44 | XRAY Report ---
PROCEDURE: Chest 1 View X-Ray INDICATIONS: fever cough TECHNIQUE: One view of the chest was acquired. COMPARISON: None. FINDINGS: Surgical changes and devices: None. Lungs and pleura: No pleural effusions or pneumothorax. Lungs are clear. Mediastinum: Mediastinal contours appear normal. Heart size is normal. Bones and chest wall: No suspicious bony lesions. Overlying soft tissues appear unremarkable. IMPRESSION: No acute cardiopulmonary process. Reviewed by: Tayo Wagoner MD on 11/26/2022 7:43 PM PDT Approved by: Tayo Wagoner MD on 11/26/2022 7:43 PM PDT Station ID: [id number]
[2022-11-26 19:59] LABS: BILIRUBIN,URINE NEGATIVE (NEGATIVE); GLUCOSE, URINE (UA) NEGATIVE (NEGATIVE); KETONES,URINE (UA) NEGATIVE (NEGATIVE); LEUKOCYTE ESTERASE, URINE LARGE (NEGATIVE); NITRITE,URINE NEGATIVE (NEGATIVE); OCCULT BLOOD,URINE LARGE (NEGATIVE); PH,URINE 5.5 PH (5.0-7.5); PROTEIN,URINE >=300 mg/dL (NEGATIVE); UROBILINOGEN,URINE 1 (NORMAL) E.U./dL (NORMAL)
[2022-11-26 20:03] LABS: CLARITY,URINE HAZY (CLEAR)
[2022-11-26 20:04] LABS: ALBUMIN 3.2 g/dL (3.2-5.5); ALBUMIN/GLOBULIN RATIO 0.8 (1.0-2.2); BILIRUBIN,TOTAL 0.9 mg/dL (0.2-1.0); CALCIUM 8.7 mg/dL (8.5-10.3); CREATININE 2.6 mg/dL (0.6-1.3); TOTAL PROTEIN 7.2 g/dL (6.4-8.9)
[2022-11-26 20:10] LABS: BACTERIA,URINE Moderate /HPF (None Seen); SQUAMOUS EPITHELIAL CELL,UR NONE SEEN (<= Few); WBC,URINE >25 /HPF (0-3)
[2022-11-26 20:29] LABS: BASOPHILS % (AUTO) 0.4 %; HCT - HEMATOCRIT 30.3 % (42.0-52.0); HGB - HEMOGLOBIN 9.4 g/dL (14.0-18.0); LYMPHOCYTES # (AUTO) 0.5 10^3/uL (1.5-3.5); LYMPHOCYTES % (AUTO) 7.9 %; MEAN CORPUSCULAR HEMOGLOBIN 27.3 pg (27.0-31.0); MEAN CORPUSCULAR VOLUME 88.1 fL (80.0-94.0); MEAN PLATELET VOLUME 10.1 fL (7.4-11.4); MONOCYTES # (AUTO) 0.5 10^3/uL (0.0-1.0); MONOCYTES % (AUTO) 7.9 %; NEUTROPHILS # (AUTO) 5.7 10^3/uL (1.5-6.6); NEUTROPHILS % (AUTO) 83.4 %; PLT - PLATELET COUNT 56 10^3/uL (130-450); RED BLOOD COUNT 3.44 10^6/uL (4.70-6.10); RED CELL DISTRIBUTION WIDTH 13.5 % (12.0-15.0); WHITE BLOOD COUNT 6.9 x10^3/uL (4.8-10.8)
[2022-11-26] MEDS ORDERED: AMPICILLIN/SULBACTAM 3 GM in SODIUM CHLORIDE 0.9% MINIBAG 100 ML IV STA (20:30)
[2022-11-26 20:59] LABS: B. PARAPERTUSSIS- RESP PCR PAN NOT DETECTED; B. PERTUSSIS- RESP PCR PANEL NOT DETECTED; C. PNEUMONIAE- RESP PCR PANEL NOT DETECTED; CORONAVIRUS 229E-RESP PCR NOT DETECTED; CORONAVIRUS HKU1-RESP PCR NOT DETECTED; CORONAVIRUS NL63-RESP PCR NOT DETECTED; CORONAVIRUS OC43-RESP PCR NOT DETECTED; HUMAN METAPNEUMOVIRUS NOT DETECTED; INFLUENZA A- RESP PCR PANEL NOT DETECTED; INFLUENZA B - RESP PCR PANEL NOT DETECTED; M. PNEUMONIAE- RESP PCR PANEL NOT DETECTED; PARAINFLUENZA VIRUS 1 NOT DETECTED; PARAINFLUENZA VIRUS 2 NOT DETECTED; PARAINFLUENZA VIRUS 3 NOT DETECTED; PARAINFLUENZA VIRUS 4 NOT DETECTED; RHINOVIRUS/ENTEROVIRUS NOT DETECTED; RSV- RESP PCR PANEL NOT DETECTED; SARS-CoV-2 -RESP PCR PANEL NOT DETECTED
[2022-11-26] MEDS ORDERED: HYDROmorphone 1 MG/ML CARPUJECT IVP STA (21:55)
--- NOTE | 2022-11-26 22:22 | CT Report ---
PROCEDURE: ABDOMEN/PELVIS WO INDICATIONS: IV only, LLQ TTP w fever TECHNIQUE: A CT scan of the abdomen and pelvis was performed without the use of intravenous contrast. Images we re recorded and evaluated at appropriate window settings. Reformats: coronal and sagittal. For radiat ion dose reduction, the following was used: automated exposure control, adjustment of mA and/or kV ac cording to patient size. COMPARISON: CT 09/10/2022, 07/02/2019. FINDINGS: Image quality: Excellent. Lung bases and heart: Unremarkable. Liver: Cirrhosis. Gallbladder and biliary tree: Cholelithiasis without wall thickening. No biliary dilation. Spleen: Enlarged. Pancreas: No pancreatic ductal dilation. Adrenals: No adrenal nodule. Kidneys and ureters: Mild left sided hydronephrosis. No renal cystic lesion which requires follow up. No solid mass. Moderate burden of bilateral nonobstructing nephrolithiasis, left-sided punctate. Rig ht renal atrophy. Bowel and peritoneum: No bowel distension. No pathologic free fluid. Lymph nodes: No central or retroperitoneal adenopathy. Prominent retroperitoneal lymph nodes, not enl arged by size criteria. Vessels: No infrarenal aortic aneurysm. PELVIS Reproductive organs: Prostatomegaly. Bladder: Mild irregular wall thickening, asymmetric along the anterior right margin (series 2, image 74). Pelvic lymph nodes: No pelvic adenopathy by size criteria. Bones: No aggressive osseous abnormality. Other: Small inguinal hernias containing fat. IMPRESSION: Mild left-sided hydronephroureter and irregular bladder wall thickening. Findings suggest ascending u rinary tract infection. Irregular bladder wall thickening may be due to infection, but underlying malignancy is not entirely excluded. Urology referral for cystoscopy should be considered. Cirrhosis with portal hypertension. Moderate burden of nonobstructing, bilateral nephrolithiasis. Reviewed by: Sesar Lane on 11/26/2022 10:21 PM PDT Approved by: Sesar Lane on 11/26/2022 10:21 PM PDT Station ID: [id number]
--- NOTE | 2022-11-26 23:35 | ED Physician Documentation ---
ED Addendum - Addendum Addendum: 11/26/22 23:32 The patient was signed out to me at change of shift by Dr. Huertas, pending CT of the abdomen and pelvis and final disposition, after presenting to the emergency department with fever, weakness, prolonged downtime on the floor. The patient had been found to have strongly positive urinalysis, elevated CK, and acute on chronic renal insufficiency. The CT was done and did show evidence of an ascending urinary tract infection, but did not show any obstructive uropathy. The patient had a number of stones in the kidneys which were nonobstructive and did not appear to be descending. I spoke with Dr. Durán, the on-call tele- hospitalist, and she did agree to admit the patient to her service. The patient had already been given IV antibiotics in the form of Levaquin and Flagyl here in the emergency department, and had also been fluid hydrated. Final impression: See original note Disposition: Admit to the hospital in serious condition.
[2022-11-26] MEDS ORDERED: carvediloL 12.5 MG TABLET PO SCH (23:41)
--- NOTE | 2022-11-26 23:41 | HISTORY & PHYSICAL EXAMINATION ---
Chief Complaint - Chief Complaint Chief Complaint: Fever History of Present Illness - Admitted From Admitted From:: ER - History Obtained From Records Reviewed: Yes History obtained from: Patient, staff, chart Exam Limitations: Virtual exam - History of Present Illness HPI Comment/Other: H&P was conducted via video remotely, using Access Cart. Patient is in [place]. Physician is in [place]. No one is at bedside. 77 yo M with PMH of HTN, HLD, CAD, PVD, DM 2 with Neuropathy and s/p R BKA d/t Osteomyelitis, CKD, COPD, GERD, Anxiety, Chronic LBP, ETOH abuse, Nephrolithiasis, Recurrent UTIs and BPH presented to the ER with c/o 3 day h/o N/V, Fevers, weakness and s/p Fall today. Pt says that the air quality has worsened d/t the Fires/smoke coming from [facility] and that made him feel nauseated. He began to feel Nauseated 3 days ago, over the weekend. He then began to have vomiting: multiple times, non-bloody. No abdo pain. He had one loose stool yesterday, no BMs today. No dysuria/hematuria noted. +subjective F/C. He felt very weak today. He went to transfer from his bed to his wheelchair, but the wheel feel off his WC and he fell to the floor. He felt too weak to get up, so lied on the floor for 3.5 hours until a tenant found him and got his friend to help him lift the patient up and call EMS. Pt noted no pain/injuries from fall. He has wounds on his LLE for which he sees Wound care every Saturday. He has not seen Urologist in years d/t transportation issues. No CP/SOB/cough. In the ER, Hgb 9.4, Plt 56, Na 133, CR 2.6, Glc 143, AST 6-, CK 2971, Viral Resp panel neg, U/A: lg bld, +LE, WBC, bacteria, UC pending, BC pending. CXR; NAD CT Abdo: L Hydroureteronephrosis, cirrhosis, nephrolithiasis not obstructive Pt was given Unasyn, Hydromorphone in the ER. History - Past Medical History Cardiovascular: reports: Hypertension, High cholesterol, Coronary artery disease, Peripheral Vascular Disease, SC Respiratory: reports: COPD, Shortness of breath Neuro: reports: Peripheral neuropathy Endocrine/Autoimmune: reports: Type 2 diabetes GI: reports: GERD : reports: Nocturia, Frequency, Kidney stones Psych: reports: Anxiety, Panic attacks Musculoskeletal: reports: Fibromyalgia, Chronic back pain MRSA Hx?: No - Past Surgical History Ortho: reports: Amputation (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) Cardiovascular: reports: Coronary stent HEENT: reports: Cataracts - Family & Social History Family History: Mother: , Diabetes, Type 2, Father: , CAD Living Situation: With spouse/s.o., With caregiver(s) (A 50 y/o male lives with them, helps around the house and caregiving.) Social History Notes: The patient lives in [place] with his who has Alzheimer's dementia. He states that he is the primary caregiver for his . He is retired. He quit smoking in 2002 prior to that he was a pack-a-day smoker for close to 40 years. He states that he does continue to drink but has cut down on his drinking recently. He has used marijuana to try to deal with his pain. He denies any other illicit drug use. - Substance History Use: Uses substance without health or social issues: Other (No cigarette use for 17 years.) - POLST Patient has POLST: No POLST Status: Full Code Meds/Allgy - Home Medications Home Medications: Ambulatory Orders Medication Instructions Recorded Confirmed Loratadine 10 mg PO DAILY 11/07/12 05/10/22 Atorvastatin [Lipitor] 40 mg PO DAILY PM #30 08/26/17 05/10/22 Spironolactone [Aldactone] 25 mg PO DAILY #30 tablet 08/26/17 05/10/22 carvediloL [Coreg] 25 mg PO BID #60 08/26/17 05/10/22 Furosemide 40 mg PO BID 12/30/17 05/10/22 Gabapentin [Neurontin] 300 mg PO TID 06/01/18 05/10/22 Losartan [Cozaar] 50 mg PO DAILY 06/01/18 05/10/22 Insulin Glargine [Lantus Solostar] 110 unit SUBQ BID 10/02/20 05/10/22 Tamsulosin [Flomax] 0.4 mg PO DAILY 30 Days #30 cap 10/02/20 05/10/22 Duloxetine HCl [Cymbalta] 60 mg PO HS 10/05/20 05/10/22 Cefadroxil [Duricef] 500 mg PO BID 7 Days #14 cap 08/01/22 Cefadroxil [Duricef] 500 mg PO BID 7 Days #14 cap 11/05/22 - Allergies Allergies/Adverse Reactions: Allergies Allergy/AdvReac Type Severity Reaction Status Date / Time pregabalin [From Lyrica] Allergy Intermediate unknown Verified 09/10/22 17:10 simvastatin [From Zocor] Allergy Intermediate Nausea Verified 11/26/22 19:08 sulfamethoxazole Allergy Intermediate unknown Verified 11/26/22 19:08 [From Septra] trimethoprim [From Septra] Allergy Intermediate unknown Verified 11/26/22 19:08 tetracycline [Tetracycline] Allergy Rash Verified 11/26/22 19:08 Review of Systems - All Other Systems All Other Systems: reports: Reviewed and negative Exam - Vital Signs Reviewed Vital Signs: Yes Vital Signs: Vital Signs x48h Temp Pulse Resp BP Pulse Ox 11/26/22 22:00 81 22 119/55 L 99 11/26/22 21:11 81 18 111/57 L 98 11/26/22 21:00 87 22 95 11/26/22 20:30 86 22 111/53 L 93 11/26/22 20:10 90 20 117/64 96 11/26/22 19:40 91 20 133/59 H 11/26/22 19:08 37.9 C 84 22 133/59 H 97 - Physical Exam General Appearance: positive: No acute distress, Alert Eyes Bilateral: positive: EOMI, No scleral icterus ENT: positive: Dry mucous membranes Respiratory: positive: Other (Access cart stethoscope not working; per ER Provider: CTA B/L) Cardiovascular: positive: Other (Access cart stethoscope not working; per ER Provider: RRR, no murmurs) Abdomen: positive: Other (per ER Provider: non-distended, Soft, mild TTP LLQ, no R/G) Skin: positive: Other (per ER Provider: small wounds LLE) Extremities: positive: Other (S/P R BKA) Neurologic/Psychiatric: positive: Oriented x3, CN's nml (2-12), Mood/affect nml Conclusion/Plan - Problem List (1) Pyelonephritis Conclusion/Plan: Pyelonephritis Nephrolithiasis, non-obstructing Recurrent UTIs BPH Fever -Viral Resp panel neg, U/A: lg bld, +LE, WBC, bacteria, UC pending, BC pending. -CXR; NAD -CT Abdo: L Hydroureteronephrosis, cirrhosis, nephrolithiasis not obstructive -Pt was given Unasyn, Hydromorphone in the ER. -He has not seen Urologist in years d/t transportation issues. -admit to Med Tele -IVF, Ciprofloxacin -F/u UC and BC -continue home medications: Flomax -SW consult to help arrange outpt F/U with Urologist and possible transportation to medical appts Nausea/Vomiting -most likely d/t Pyelonephritis -IVF -anti-emetics PRN -clear liquid diet; advance to DM diet as tolerated Fall due to Weakness Rhabdomyolysis -CK 2971 -IVF -trend CKs -PT/OT eval -pt has Wheelchair at baseline d/t R BKA RAFAEL on CKD Hyponatremia Dehydration/Pre-renal -Na 133 -CR 2.6; baseline 1.5 -IVF -hold home medications: Lasix, Spironolactone, Losartan -avoid nephrotoxins Anemia, normocytic, chronic -Hgb 9.4 -check iron studies, B12/Folate Liver Cirrhosis H/o ETOH abuse Elevated AST Thrombocytopenia -AST 60, Plt 56 -monitor HTN HLD CAD PVD -hold home medications: Lasix, Spironolactone, Losartand d/t RAFAEL -continue home medications: statin, Coreg 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
[2022-11-26] MEDS ORDERED: SODIUM CHLORIDE 0.9% 1,000 ML IV SCH (23:45)
[2022-11-26] MEDS ORDERED: GABAPENTIN 400 MG CAPSULE PO SCH (23:45)
[2022-11-26] MEDS ORDERED: FUROSEMIDE 40 MG TABLET PO SCH (23:45)
[2022-11-26] MEDS ORDERED: SODIUM CHLORIDE FLUSH 0.9% 10 ML SYRINGE IVP PRN (23:49)
[2022-11-26] MEDS ORDERED: PROCHLORPERAZINE 10 MG/2 ML VIAL IVP PRN (23:49)
[2022-11-26] MEDS ORDERED: ONDANSETRON 4 MG/2 ML VIAL IVP PRN (23:49)
[2022-11-26] MEDS ORDERED: ONDANSETRON ODT 4 MG TABLET TL PRN (23:49)
[2022-11-27] MEDS ORDERED: FUROSEMIDE 40 MG TABLET PO SCH (00:13)
[2022-11-27] MEDS: ATORVASTATIN 10 MG TABLET PO SCH ×2 (00:20→21:15)
[2022-11-27] MEDS ORDERED: CIPROFLOXACIN 400 MG/200 ML 400 MG/200 ML BAG IV SCH (01:00)
[2022-11-27] MEDS: SODIUM CHLORIDE FLUSH 0.9% 10 ML SYRINGE IVP SCH ×4 (01:04→23:49)
[2022-11-27] MEDS: carvediloL 12.5 MG TABLET PO SCH ×3 (01:04→21:15)
[2022-11-27] MEDS: GABAPENTIN 300 MG CAPSULE PO SCH ×4 (01:04→21:15)
[2022-11-27] MEDS: DULoxetine 60 MG CAPSULE PO SCH ×2 (01:06→21:17)
[2022-11-27] MEDS: CIPROFLOXACIN 400 MG/200 ML 400 MG/200 ML BAG IV SCH ×2 (01:16→13:42)
[2022-11-27] MEDS ORDERED: traMADol 50 MG TABLET PO PRN (01:32)
[2022-11-27] MEDS: HYDROcod/ACETAM 5/325 MG TABLET PO PRN ×5 (01:41→23:48)
[2022-11-27 05:26] LABS: BASOPHILS % (AUTO) 0.4 %; HGB - HEMOGLOBIN 8.1 g/dL (14.0-18.0); LYMPHOCYTES # (AUTO) 1.1 10^3/uL (1.5-3.5); MEAN CORPUSCULAR HEMOGLOBIN 28.1 pg (27.0-31.0); MEAN CORPUSCULAR HGB CONC 31.2 g/dL (32.0-36.0); MEAN CORPUSCULAR VOLUME 90.3 fL (80.0-94.0); MEAN PLATELET VOLUME 10.3 fL (7.4-11.4); MONOCYTES # (AUTO) 0.8 10^3/uL (0.0-1.0); MONOCYTES % (AUTO) 10.6 %; NEUTROPHILS # (AUTO) 5.8 10^3/uL (1.5-6.6); NEUTROPHILS % (AUTO) 74.7 %; PLT - PLATELET COUNT 49 10^3/uL (130-450); RED BLOOD COUNT 2.88 10^6/uL (4.70-6.10); RED CELL DISTRIBUTION WIDTH 13.6 % (12.0-15.0); WHITE BLOOD COUNT 7.8 x10^3/uL (4.8-10.8)
[2022-11-27 05:45] LABS: % IRON SATURATION 6 % (20-50); BUN - BLOOD UREA NITROGEN 40 mg/dL (6-20); CARBON DIOXIDE - CO2 23 mmol/L (21-32); CHLORIDE 103 mmol/L (101-111); GFR - MDRD 20 (>89); GLUCOSE 132 mg/dL (74-104); IRON 15 ug/dL (50-212); SODIUM 133 mmol/L (135-145); TOTAL IRON BINDING CAPACITY 265 ug/dL (250-450); TRANSFERRIN 189 mg/dL (203-362)
[2022-11-27 06:08] LABS: CK- CREATINE KINASE 7199 IU/L (30-223)
--- NOTE | 2022-11-27 06:26 | PROVIDER PROGRESS NOTE ---
Opening Machine Cleaner Note - Opening Machine Cleaner Note Opening Machine Cleaner Note: RN paged to report ck [id number], up from [id number]. Nanotechnology Engineering Technologist 2.6 --> 3.0 Noted patient presents with infected kidney stone. patient on cipro. followup cultures. would recommend urology consultation for infected kidney stone. day team to followup with urological python consultant and transfer if need be. noted patient on NS 75ml/hr. increased rate to 100ml/hr. Lewis Montano DO Internal Medicine Sound Tele Opening Machine Cleaner
[2022-11-27] MEDS: SODIUM CHLORIDE 0.9% 1,000 ML IV SCH ×4 (07:07→21:16)
[2022-11-27] MEDS: ZINC OXIDE 20% OINT 30 GM TUBE TOP PRN (07:18)
[2022-11-27] MEDS: INSULIN LISPRO 300 UNIT/3 ML PEN SUBQ SCH ×4 (07:37→21:16)
[2022-11-27] MEDS: LIDOCAINE PATCH 5% TOP SCH (08:30)
[2022-11-27] MEDS: TAMSULOSIN 0.4 MG CAPSULE PO SCH (08:31)
[2022-11-27] MEDS: LORATADINE 10 MG TABLET PO SCH (08:31)
[2022-11-27] MEDS ORDERED: LOSARTAN 50 MG TABLET PO SCH (09:00)
[2022-11-27] MEDS ORDERED: SPIRONOLACTONE 25 MG TABLET PO SCH (09:00)
[2022-11-27] MEDS ORDERED: INSULIN GLARGINE 100 UNIT/ML SUBQ SCH (09:00)
[2022-11-27] MEDS ORDERED: LORATADINE 10 MG PO SCH (09:00)
[2022-11-27] MEDS ORDERED: HEPARIN 5,000 UNIT/ML VIAL SUBQ SCH (09:00)
[2022-11-27] MEDS: cefTRIAXone 1 GM in SODIUM CHLORIDE 0.9% MINIBAG 100 ML IV SCH (10:22)
[2022-11-27 12:42] LABS: ESTIMATED AVERAGE GLUCOSE 177 mg/dL (70-100); HEMOGLOBIN A1c% 7.8 % (4.27-6.07)
[2022-11-27] MEDS: NYSTATIN CREAM 15 GM TUBE TOP SCH ×2 (13:00→21:16)
--- NOTE | 2022-11-27 16:13 | PHARMACY PROGRESS NOTE ---
- Best Possible Medication History Admit Date and Time: 11/26/22 9177 Processed by: Pharmacy Medication History completed: Yes Patient Interview: Completed Secondary Source(s): Insurance records As the person ultimately responsible for medication therapy, providers are able to order a medication from an existing home medication list in [facility] via the "Reconcile Routine" prior to Confirmation of that medication by software support specialist. Such practice is discouraged except when the physician, in their clinical judgment, deems that a medical need exists for a medication without regard to previous use.
[2022-11-27] MEDS: ACETAMINOPHEN 325 MG TABLET PO PRN (16:39)
--- NOTE | 2022-11-27 16:39 | PROVIDER PROGRESS NOTE ---
Subjective - Prog Note Date Prog Note Date: 11/27/22 Prog Note Time: 16:35 - Subjective Subjective: He would like IV morphine. That was his first words out of his mouth when he met me this morning. He says that he hurts all over. Has a headache. When I ask if this pain is chronic he said kind of. But it all got worse when he lay on the floor for 3-1/2 hours. He does not relate a specific joint pain. In other words he is not telling me 1 hip hurts or when hand hurts. He has no chest pain. He just "hurts all over". His next request is a Mahan. He has urgency, frequency, and retention. 800 cc is in his bladder scan. He said that he is try to urinate and he just cannot. He does not want a straight cath anymore. It just hurts too much. He would rather just have an indwelling Mahan catheter for the duration of his visit. He also request to work with PT. He states that he is usually in a wheelchair. That is his baseline status. However he is usually able to go from supine to sitting, sitting to standing without an assist. He lives in a converted basement apartment. He has a bathroom, small kitchenette. He has not had a bat h in a very long time and uses baby wipes to keep him clean. He goes to the wound clinic and the wound clinic helps keep his legs clean. With this recent fall and he laid on the ground, he is lost a lot of strength. He said he can even sit himself up unless the nurses or the aides help him. Current Medications - Current Medications Current Medications: Active Medications Acetaminophen (Acetaminophen 325 Mg Tablet) 650 mg PO Q4HR PRN PRN Reason: Pain 1 to 4, or Fever Hydrocodone Bitart/Acetaminophen (Hydrocod/Acetam 5/325 Mg Tablet) 1 tab PO Q4HR PRN PRN Reason: Moderate Pain (Level 4-6) Last Admin: 11/27/22 12:49 Dose: 1 tab Atorvastatin Calcium (Atorvastatin 10 Mg Tablet) 40 mg PO HS [facility] Last Admin: 11/27/22 00:20 Dose: 40 mg Carvedilol (Carvedilol 12.5 Mg Tablet) 25 mg PO BID CATIE Last Admin: 11/27/22 08:30 Dose: Not Given Duloxetine HCl (Duloxetine 60 Mg Capsule) 60 mg PO HS [facility] Last Admin: 11/27/22 01:06 Dose: Not Given Gabapentin (Gabapentin 300 Mg Capsule) 300 mg PO TID [facility] Last Admin: 11/27/22 13:42 Dose: 300 mg Ciprofloxacin (Cipro 400 Mg/200 Ml) 400 mg in 200 mls @ 200 mls/hr IV Q12H [facility] Last Infusion: 11/27/22 14:43 Dose: Infused Sodium Chloride (Normal Saline 0.9%) 1,000 mls @ 100 mls/hr IV .Q10H [facility] Last Admin: 11/27/22 15:21 Dose: 100 mls/hr Ceftriaxone Sodium 1 gm/ (Sodium Chloride) 100 mls @ 200 mls/hr IV DAILY [facility] Last Infusion: 11/27/22 11:00 Dose: Infused Insulin Human Lispro (Insulin Lispro 300 Unit/3 Ml Pen) 1 - 9 unit SUBQ 0800,1200,1700,2100 [facility]; Protocol Last Admin: 11/27/22 11:49 Dose: Not Given Lidocaine (Lidocaine Patch 5%) 1 patch TOP DAILY [facility] Last Admin: 11/27/22 08:30 Dose: 1 patch Loratadine (Loratadine 10 Mg Tablet) 10 mg PO DAILY [facility] Last Admin: 11/27/22 08:31 Dose: 10 mg Multi-Ingredient Ointment (Zinc Oxide 20% Oint 30 Gm Tube) 1 applic TOP PRN PRN PRN Reason: Skin Care Last Admin: 11/27/22 07:18 Dose: 1 applic Nystatin (Nystatin Cream 15 Gm Tube) 1 applic TOP BID [facility] Last Admin: 11/27/22 13:00 Dose: 1 applic Ondansetron HCl (Ondansetron 4 Mg/2 Ml Vial) 4 mg IVP Q6HR PRN PRN Reason: Nausea / Vomiting Ondansetron HCl (Ondansetron Odt 4 Mg Tablet) 4 mg TL Q6HR PRN PRN Reason: Nausea / Vomiting Prochlorperazine Edisylate (Prochlorperazine 10 Mg/2 Ml Vial) 10 mg IVP Q6HR PRN PRN Reason: Nausea / Vomiting Sodium Chloride (Sodium Chloride Flush 0.9% 10 Ml Syringe) 10 ml IVP PRN PRN PRN Reason: NEEDED PER PROVIDER ORDERS Sodium Chloride (Sodium Chloride Flush 0.9% 10 Ml Syringe) 10 ml IVP 0100,0900,1700 [facility] Last Admin: 11/27/22 08:31 Dose: Not Given Tamsulosin HCl (Tamsulosin 0.4 Mg Capsule) 0.4 mg PO DAILY [facility] Last Admin: 11/27/22 08:31 Dose: 0.4 mg Loratadine 10 mg PO DAILY 11/07/12 Furosemide 40 mg PO BID 12/30/17 Gabapentin [Neurontin] 300 mg PO TID 06/01/18 Losartan [Cozaar] 50 mg PO DAILY 06/01/18 Insulin Glargine [Lantus Solostar] 100 unit SUBQ QDBREAKFAST 10/02/20 Insulin Glargine [Lantus Solostar] 50 units SUBQ QPM 11/27/22 Objective - Vital Signs/Intake & Output Reviewed Vital Signs: Yes Vital Signs: Vital Signs x48h Temp Pulse Pulse Resp BP BP Pulse Ox 11/27/22 16:13 36.9 C 67 20 94/40 L 94 11/27/22 12:37 36.6 C 66 18 83/46 L 96 11/27/22 11:45 64 93/43 L 11/27/22 11:35 64 93/43 L Intake & Output: Intake & Output 11/24/22 11/25/22 11/26/22 11/27/22 23:59 23:59 23:59 23:59 Intake Total 100 2974.583 Output Total 100 1580 Balance 0 1394.583 - Objective General Appearance: positive: Alert, Mild distress ("Hurts all over", disheveled, obese), Other (Low voice, hoarse. Seems moderately deaf and will over speak anyone talking.) Eyes Bilateral: positive: PERRL, EOMI ENT: positive: No signs of dehydration Neck: positive: No JVD. negative: Stiff neck Respiratory: positive: No respiratory distress, Other (Barrel chest with prolonged and exhalation phase but no wheezing. No increased respiratory effort and speaking). negative: Wheezes, Rales, Rhonchi Cardiovascular: positive: Regular rate & rhythm, Systolic murmur Abdomen: positive: Non-tender, No organomegaly, Nml bowel sounds, No distention, Other (Obese and protuberant) Skin: positive: Dry, Other (Deedee intertrigo underneath his abdominal pannus, intertriginous folds) Extremities: positive: Full ROM (He can bend his knees, bend his hips, but he cannot lift his legs off the bed very well.), Pedal edema Neurologic/Psychiatric: positive: Oriented x3, CN's nml (2-12) (Except he may be slightly deaf). negative: Motor nml (He says that his legs are not strong enough to hold him up to walk more than 1 or 2 steps. That is been going on for years and he accepts that. It is upper extremity strength that he is worried about since he is lost so much ground) - Lab Results Fish Bones: 11/27/22 05:00 11/27/22 05:00 Other Labs: Lab Results x24hrs 11/27/22 11/27/22 11/27/22 Range/Units 16:27 11:46 07:32 WBC (4.8-10.8) x10^3/uL RBC (4.70-6.10) 10^6/uL Hgb (14.0-18.0) g/dL Hct (42.0-52.0) % MCV (80.0-94.0) fL MCH (27.0-31.0) pg MCHC (32.0-36.0) g/dL RDW (12.0-15.0) % Plt Count (130-450) 10^3/uL MPV (7.4-11.4) fL Neut # (Auto) (1.5-6.6) 10^3/uL Lymph # (Auto) (1.5-3.5) 10^3/uL [place] # (Auto) (0.0-1.0) 10^3/uL Eos # (Auto) (0.0-0.7) 10^3/uL Baso # (Auto) (0.0-0.1) 10^3/uL Absolute Nucleated RBC x10^3/uL Nucleated RBC % /100WBC Sodium (135-145) mmol/L Potassium (3.5-4.5) mmol/L Chloride (101-111) mmol/L Carbon Dioxide (21-32) mmol/L Anion Gap (6-13) BUN (6-20) mg/dL Creatinine (0.6-1.3) mg/dL Estimated GFR (MDRD) (>89) Glucose (74-104) mg/dL POC Whole Bld Glucose 168 H 118 H 126 H (70 - 100) mg/dL Estimat Average Glucose (70-100) mg/dL Hemoglobin A1c % (4.27-6.07) % Lactic Acid (0.5-2.2) mmol/L Calcium (8.5-10.3) mg/dL Iron (50-212) ug/dL TIBC (250-450) ug/dL % Saturation (20-50) % Transferrin (203-362) mg/dL Total Bilirubin (0.2-1.0) mg/dL AST (10-42) IU/L ALT (10-60) IU/L Alkaline Phosphatase (42-121) IU/L Total Creatine Kinase (30-223) IU/L Total Protein (6.4-8.9) g/dL Albumin (3.2-5.5) g/dL Globulin (2.1-4.2) g/dL Albumin/Globulin Ratio (1.0-2.2) Vitamin B12 (180-914) pg/mL Folate (5.90 - >24.8) ng/mL Urine Color Urine Clarity (CLEAR) Urine pH (5.0-7.5) PH Ur Specific [place] (1.002-1.030) Urine Protein (NEGATIVE) mg/dL Urine Glucose (UA) (NEGATIVE) mg/dL Urine Ketones (NEGATIVE) mg/dL Urine Occult Blood (NEGATIVE) Urine Nitrite (NEGATIVE) Urine Bilirubin (NEGATIVE) Urine Urobilinogen (NORMAL) E.U./dL Ur Leukocyte Esterase (NEGATIVE) Urine RBC (0-5) /HPF Urine WBC (0-3) /HPF Ur Squamous Epith Cells (<= Few) Urine Bacteria (None Seen) /HPF Urine Culture Comments Nasal Adenovirus (PCR) Nasal B. parapertussis DNA (PCR) Nasal Coronavir 229E PCR Nasal Coronavir HKU1 PCR Nasal Coronavir NL63 PCR Nasal Coronavir OC43 PCR Nasal Enterovir/Rhinovir PCR Nasal Influenza B PCR Nasal Influenza A PCR Nasal Parainfluen 1 PCR Nasal Parainfluen 2 PCR Nasal Parainfluen 3 PCR Nasal Parainfluen 4 PCR Nasal RSV (PCR) Nasal B.pertussis DNA PCR Nasal C.pneumoniae (PCR) Tyler Human Metapneumo PCR Nasal M.pneumoniae (PCR) Nasal SARS-CoV-2 (PCR) 11/27/22 11/27/22 11/27/22 Range/Units 05:00 05:00 05:00 WBC 7.8 (4.8-10.8) x10^3/uL RBC 2.88 L (4.70-6.10) 10^6/uL Hgb 8.1 L (14.0-18.0) g/dL Hct 26.0 L (42.0-52.0) % MCV 90.3 (80.0-94.0) fL MCH 28.1 (27.0-31.0) pg MCHC 31.2 L (32.0-36.0) g/dL RDW 13.6 (12.0-15.0) % Plt Count 49 L (130-450) 10^3/uL MPV 10.3 (7.4-11.4) fL Neut # (Auto) 5.8 (1.5-6.6) 10^3/uL Lymph # (Auto) 1.1 L (1.5-3.5) 10^3/uL [place] # (Auto) 0.8 (0.0-1.0) 10^3/uL Eos # (Auto) 0.0 (0.0-0.7) 10^3/uL Baso # (Auto) 0.0 (0.0-0.1) 10^3/uL Absolute Nucleated RBC 0.00 x10^3/uL Nucleated RBC % 0.0 /100WBC Sodium 133 L (135-145) mmol/L Potassium 4.0 (3.5-4.5) mmol/L Chloride 103 (101-111) mmol/L Carbon Dioxide 23 (21-32) mmol/L Anion Gap 7.0 (6-13) BUN 40 H (6-20) mg/dL Creatinine 3.0 H (0.6-1.3) mg/dL Estimated GFR (MDRD) 20 L (>89) Glucose 132 H (74-104) mg/dL POC Whole Bld Glucose (70 - 100) mg/dL Estimat Average Glucose 177 H (70-100) mg/dL Hemoglobin A1c % 7.8 H (4.27-6.07) % Lactic Acid (0.5-2.2) mmol/L Calcium 8.0 L (8.5-10.3) mg/dL Iron 15 L (50-212) ug/dL TIBC 265 (250-450) ug/dL % Saturation 6 L (20-50) % Transferrin 189 L (203-362) mg/dL Total Bilirubin (0.2-1.0) mg/dL AST (10-42) IU/L ALT (10-60) IU/L Alkaline Phosphatase (42-121) IU/L Total Creatine Kinase 7199 H* (30-223) IU/L Total Protein (6.4-8.9) g/dL Albumin (3.2-5.5) g/dL Globulin (2.1-4.2) g/dL Albumin/Globulin Ratio (1.0-2.2) Vitamin B12 746 (180-914) pg/mL Folate > 44.6 (5.90 - >24.8) ng/mL Urine Color Urine Clarity (CLEAR) Urine pH (5.0-7.5) PH Ur Specific [place] (1.002-1.030) Urine Protein (NEGATIVE) mg/dL Urine Glucose (UA) (NEGATIVE) mg/dL Urine Ketones (NEGATIVE) mg/dL Urine Occult Blood (NEGATIVE) Urine Nitrite (NEGATIVE) Urine Bilirubin (NEGATIVE) Urine Urobilinogen (NORMAL) E.U./dL Ur Leukocyte Esterase (NEGATIVE) Urine RBC (0-5) /HPF Urine WBC (0-3) /HPF Ur Squamous Epith Cells (<= Few) Urine Bacteria (None Seen) /HPF Urine Culture Comments Nasal Adenovirus (PCR) Nasal B. parapertussis DNA (PCR) Nasal Coronavir 229E PCR Nasal Coronavir HKU1 PCR Nasal Coronavir NL63 PCR Nasal Coronavir OC43 PCR Nasal Enterovir/Rhinovir PCR Nasal Influenza B PCR Nasal Influenza A PCR Nasal Parainfluen 1 PCR Nasal Parainfluen 2 PCR Nasal Parainfluen 3 PCR Nasal Parainfluen 4 PCR Nasal RSV (PCR) Nasal B.pertussis DNA PCR Nasal C.pneumoniae (PCR) [place] Human Metapneumo PCR Nasal M.pneumoniae (PCR) Nasal SARS-CoV-2 (PCR) 11/26/22 11/26/22 11/26/22 Range/Units 19:50 19:40 19:40 WBC (4.8-10.8) x10^3/uL RBC (4.70-6.10) 10^6/uL Hgb (14.0-18.0) g/dL Hct (42.0-52.0) % MCV (80.0-94.0) fL MCH (27.0-31.0) pg MCHC (32.0-36.0) g/dL RDW (12.0-15.0) % Plt Count (130-450) 10^3/uL MPV (7.4-11.4) fL Neut # (Auto) (1.5-6.6) 10^3/uL Lymph # (Auto) (1.5-3.5) 10^3/uL [place] # (Auto) (0.0-1.0) 10^3/uL Eos # (Auto) (0.0-0.7) 10^3/uL Baso # (Auto) (0.0-0.1) 10^3/uL Absolute Nucleated RBC x10^3/uL Nucleated RBC % /100WBC Sodium 133 L (135-145) mmol/L Potassium 4.0 (3.5-4.5) mmol/L Chloride 103 (101-111) mmol/L Carbon Dioxide 24 (21-32) mmol/L Anion Gap 6.0 (6-13) BUN 34 H (6-20) mg/dL Creatinine 2.6 H (0.6-1.3) mg/dL Estimated GFR (MDRD) 24 L (>89) Glucose 143 H (74-104) mg/dL POC Whole Bld Glucose (70 - 100) mg/dL Estimat Average Glucose (70-100) mg/dL Hemoglobin A1c % (4.27-6.07) % Lactic Acid 1.3 (0.5-2.2) mmol/L Calcium 8.7 (8.5-10.3) mg/dL Iron (50-212) ug/dL TIBC (250-450) ug/dL % Saturation (20-50) % Transferrin (203-362) mg/dL Total Bilirubin 0.9 (0.2-1.0) mg/dL AST 60 H (10-42) IU/L ALT 31 (10-60) IU/L Alkaline Phosphatase 115 (42-121) IU/L Total Creatine Kinase 2971 H* (30-223) IU/L Total Protein 7.2 (6.4-8.9) g/dL Albumin 3.2 (3.2-5.5) g/dL Globulin 4.0 (2.1-4.2) g/dL Albumin/Globulin Ratio 0.8 L (1.0-2.2) Vitamin B12 (180-914) pg/mL Folate (5.90 - >24.8) ng/mL Urine Color YELLOW Urine Clarity HAZY (CLEAR) Urine pH 5.5 (5.0-7.5) PH Ur Specific [place] 1.020 (1.002-1.030) Urine Protein >=300 H (NEGATIVE) mg/dL Urine Glucose (UA) NEGATIVE (NEGATIVE) mg/dL Urine Ketones NEGATIVE (NEGATIVE) mg/dL Urine Occult Blood LARGE H (NEGATIVE) Urine Nitrite NEGATIVE (NEGATIVE) Urine Bilirubin NEGATIVE (NEGATIVE) Urine Urobilinogen 1 (NORMAL) (NORMAL) E.U./dL Ur Leukocyte Esterase LARGE H (NEGATIVE) Urine RBC 11-25 H (0-5) /HPF Urine WBC >25 H (0-3) /HPF Ur Squamous Epith Cells NONE SEEN (<= Few) Urine Bacteria Moderate H (None Seen) /HPF Urine Culture Comments INDICATED Nasal Adenovirus (PCR) Nasal B. parapertussis DNA (PCR) Nasal Coronavir 229E PCR Nasal Coronavir HKU1 PCR Nasal Coronavir NL63 PCR Nasal Coronavir OC43 PCR Nasal Enterovir/Rhinovir PCR Nasal Influenza B PCR Nasal Influenza A PCR Nasal Parainfluen 1 PCR Nasal Parainfluen 2 PCR Nasal Parainfluen 3 PCR Nasal Parainfluen 4 PCR Nasal RSV (PCR) Nasal B.pertussis DNA PCR Nasal C.pneumoniae (PCR) [place] Human Metapneumo PCR Nasal M.pneumoniae (PCR) Nasal SARS-CoV-2 (PCR) 11/26/22 11/26/22 Range/Units 19:40 19:35 WBC 6.9 (4.8-10.8) x10^3/uL RBC 3.44 L (4.70-6.10) 10^6/uL Hgb 9.4 L (14.0-18.0) g/dL Hct 30.3 L (42.0-52.0) % MCV 88.1 (80.0-94.0) fL MCH 27.3 (27.0-31.0) pg MCHC 31.0 L (32.0-36.0) g/dL RDW 13.5 (12.0-15.0) % Plt Count 56 L (130-450) 10^3/uL MPV 10.1 (7.4-11.4) fL Neut # (Auto) 5.7 (1.5-6.6) 10^3/uL Lymph # (Auto) 0.5 L (1.5-3.5) 10^3/uL [place] # (Auto) 0.5 (0.0-1.0) 10^3/uL Eos # (Auto) 0.0 (0.0-0.7) 10^3/uL Baso # (Auto) 0.0 (0.0-0.1) 10^3/uL Absolute Nucleated RBC 0.00 x10^3/uL Nucleated RBC % 0.0 /100WBC Sodium (135-145) mmol/L Potassium (3.5-4.5) mmol/L Chloride (101-111) mmol/L Carbon Dioxide (21-32) mmol/L Anion Gap (6-13) BUN (6-20) mg/dL Creatinine (0.6-1.3) mg/dL Estimated GFR (MDRD) (>89) Glucose (74-104) mg/dL POC Whole Bld Glucose (70 - 100) mg/dL Estimat Average Glucose (70-100) mg/dL Hemoglobin A1c % (4.27-6.07) % Lactic Acid (0.5-2.2) mmol/L Calcium (8.5-10.3) mg/dL Iron (50-212) ug/dL TIBC (250-450) ug/dL % Saturation (20-50) % Transferrin (203-362) mg/dL Total Bilirubin (0.2-1.0) mg/dL AST (10-42) IU/L ALT (10-60) IU/L Alkaline Phosphatase (42-121) IU/L Total Creatine Kinase (30-223) IU/L Total Protein (6.4-8.9) g/dL Albumin (3.2-5.5) g/dL Globulin (2.1-4.2) g/dL Albumin/Globulin Ratio (1.0-2.2) Vitamin B12 (180-914) pg/mL Folate (5.90 - >24.8) ng/mL Urine Color Urine Clarity (CLEAR) Urine pH (5.0-7.5) PH Ur Specific [place] (1.002-1.030) Urine Protein (NEGATIVE) mg/dL Urine Glucose (UA) (NEGATIVE) mg/dL Urine Ketones (NEGATIVE) mg/dL Urine Occult Blood (NEGATIVE) Urine Nitrite (NEGATIVE) Urine Bilirubin (NEGATIVE) Urine Urobilinogen (NORMAL) E.U./dL Ur Leukocyte Esterase (NEGATIVE) Urine RBC (0-5) /HPF Urine WBC (0-3) /HPF Ur Squamous Epith Cells (<= Few) Urine Bacteria (None Seen) /HPF Urine Culture Comments Nasal Adenovirus (PCR) NOT DETECTED Nasal B. parapertussis DNA (PCR) NOT DETECTED Nasal Coronavir 229E PCR NOT DETECTED Nasal Coronavir HKU1 PCR NOT DETECTED Nasal Coronavir NL63 PCR NOT DETECTED Nasal Coronavir OC43 PCR NOT DETECTED Nasal Enterovir/Rhinovir PCR NOT DETECTED Nasal Influenza B PCR NOT DETECTED Nasal Influenza A PCR NOT DETECTED Nasal Parainfluen 1 PCR NOT DETECTED Nasal Parainfluen 2 PCR NOT DETECTED Nasal Parainfluen 3 PCR NOT DETECTED Nasal Parainfluen 4 PCR NOT DETECTED Nasal RSV (PCR) NOT DETECTED Nasal B.pertussis DNA PCR NOT DETECTED Nasal C.pneumoniae (PCR) NOT DETECTED [place] Human Metapneumo PCR NOT DETECTED Nasal M.pneumoniae (PCR) NOT DETECTED Nasal SARS-CoV-2 (PCR) NOT DETECTED ABX Reporting Has patient been on IV antibiotics over the past 48 hours?: Yes Assessment/Plan - Problem List (1) Pyelonephritis Impression: Most likely due to 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 Patient is with us that his renal problems are difficult to treat because he has difficulty getting transportation. Yet he still has a van that picks him up and brings him to the wound clinic, Ativan that takes him to his primary care provider office. I suggested to him that he might want to consider using that same van and transportation system to get him to the urology office. I have spoken to urology and described the patient. Urology will be glad to see him in the clinic. He does not feel that the patient needs an inpatient consultation at this time. Preliminary urine culture is showing Enterococcus. And both blood cultures show gram-positive cocci. PCR for the blood is Streptococcus species. For the pyelonephritis I have kept him on a quinolone. But with the addition of strep in the blood, I added Rocephin. Pharmacy and I have discussed this case and wondered if we could switch him to a single agent. Admission CBC showed normal white cell count yesterday and today. He has not had a fever. Enterococcus UTI is usually treated with ampicillin or amoxicillin. It is not recommended to use Bactrim because enterococci can reverse the effect of trimethoprim. (2) Nephrolithiasis Impression: He thinks he has had kidney stones for a while off-and-on. This is not news for him. But he is never had a work-up for it because he is never seen urology. Same for his prostate. Plan: Check PTH Dr. Ashish Cruz, urology, will see him in the office. Right now they only recommend IV fluids, Flomax, and they agree with the Mahan catheter because of obstruction. (3) Recurrent UTI Impression: Most likely from prostatitis and urinary obstruction. Again, urine is growing out Enterococcus. On a quinolone. Plan for treatment minimum of 7 days. Does not have to be IV. Hopefully can be switched to oral in the next day or 2. (4) BPH loc w urin obs/LUTS Impression: Started on Flomax. He is requesting an indwelling Mahan catheter. I will place that. Urology feels that he could be discharged with a Mahan catheter if the patient so desires. Urology will address the Mahan in the office. Because of inability to urinate today, his BUN and creatinine have come up. I am hoping those labs will improve once the Mahan is placed today. (5) Nausea & vomiting Impression: Have resolved. No longer vomiting. I will advance his diet to a carb controlled diet. Qualifiers: Vomiting type: unspecified Qualified Code(s): R11.2 - Nausea with vomiting, unspecified (6) Fall at home Impression: This patient is always in a wheelchair. Has lost a lot of ground with weakness. Most likely due to the infection. And then falling on the ground led to rhabdo. I have ordered PT and OT to see him to help him with upper body strength to improve his upper body mobility. He wants to get back to the baseline of where he can go from supine to sitting, sitting to standing with 1 step to transfer to wheelchair. Qualifiers: Encounter type: initial encounter Qualified Code(s): W19.XXXA - Unspecified fall, initial encounter; Y92.009 - Unspecified place in unspecified non- institutional (private) residence as the place of occurrence of the external cause (7) Rhabdomyolysis Impression: His CK is actually gotten worse. When he was admitted he was 2971. Today he is 7199. So for the 3 and half hours he lay on the floor, he may still have some muscle deterioration that is continuing. I expect will eventually stabilize. Plan: Continue IV fluids Continue daily checks of CK (8) Acute on chronic kidney failure Impression: due to dehydration, rhabdo and associated with hyponatremia and an increase of baseline creat of 1.5 Baseline creatinine appears to be between 1.1 and 1.4. He came in at 2.6. Today's creatinine is 3.0. Much like his CK, he is getting worse not better. We know that he has been unable to urinate today. His obstructive uropathy may have made this worse. I am hoping with the Mahan placement he will improve by tomorrow. Plan: Increase IV fluid rate. He is currently at 100 cc an hour. I will increase him to 200 cc an hour for 2 more liters. Qualifiers: Acute renal failure type: unspecified Chronic kidney disease stage: stage 3 (moderate) (9) Chronic anemia Impression: He is chronically anemic. He usually lives at 9.0 and as high as 9.7. In April of this year he got up to 12.1 but that was only for April. After that he is drifted back down to the 9 he lives at. Hospitalist on last night did order B12 which was normal at 746. Folate was gre ater than 44.6. Iron is low at 15, transferrin 189. Plan: This is a gentleman who has a history of alcohol abuse, has poor diet, most likely poor p.o. intake and nutrition. Some of his iron deficiency could be nutritional. He could also have mild gastritis. As such I am going to start him on Protonix, and give a single IV iron infusion and start him on p.o. iron. I will also check fecal occult blood stool. (10) Alcoholic cirrhosis of liver without ascites Impression: He has a history of alcohol abuse. AST is elevated. He has associated thrombocytopenia. AST was 60 on admission. And ALT was normal at 31. Repeat liver panel tomorrow as well as pro time. His last pro time on September 10, 2022 was 11.4. Prior to that his pro time has been relatively normal. His cirrhosis may be due to fatty liver. He denies current ongoing alcohol abuse. Liver enzymes do not appear severely elevated. If his INR comes back as normal, I would think his disease is mild to moderate. (11) Type 2 diabetes mellitus Impression: 05/19/17 08/18/17 09/09/17 05:27 18:42 14:30 Glycated Hemoglobin 7.3 H 7.6 H 6.8 H Previous A1c show borderline control Plan: check A1c in am crb controlled diet REsume lantus, he takes 50, but I will start at 30 add SS insulin before meals. Qualifiers: Diabetes mellitus manager terminal insulin use: with custodial use Diabetes mellitus complication detail: with other skin complication Qualified Code(s): E11.628 - Type 2 diabetes mellitus with other skin complications; Z79.4 - longterm (current) use of insulin (12) Hx of right BKA Impression: Review of the record shows foot infection followed by osteomyelitis followed by BKA. 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 Followed by the wound clinic. He sees them every Saturday. That will be continued and he is to be seen tomorrow he tells me. (14) Chronic pain Impression: Home medication is gabapentin for neuropathy and chronic pain. I explained to the patient that well I will give him Tylenol, or oxycodone, I will not be giving him IV morphine. Qualifiers: Chronic pain type: other chronic pain Qualified Code(s): G89.29 - Other chronic pain
[2022-11-27] MEDS ORDERED: IRON DEXTRAN 1,500 MG in SODIUM CHLORIDE 0.9% 500 ML IV ONE (17:44)
[2022-11-27] MEDS: PANTOPRAZOLE 40 MG TABLET PO SCH (18:45)
[2022-11-27] MEDS: CALAMINE/ZINC OXIDE 177 ML BOTTLE TOP PRN (18:45)
[2022-11-27] MEDS: diphenhydrAMINE 25 MG CAPSULE PO PRN (22:33)
[2022-11-28] MEDS: SODIUM CHLORIDE 0.9% 1,000 ML IV SCH ×4 (01:36→21:13)
[2022-11-28] MEDS: CIPROFLOXACIN 400 MG/200 ML 400 MG/200 ML BAG IV SCH (01:36)
[2022-11-28] MEDS ORDERED: MORPHINE 10 MG/ML VIAL IVP STA (02:39)
--- NOTE | 2022-11-28 02:40 | PROVIDER PROGRESS NOTE ---
Physician Pediatrician Note - Physician Pediatrician Note Physician Pediatrician Note: Consult Information Member Facility: [facility] Facility Requesting Clinician: Pancho Frazier Patient Name: Edil Zavala Date of : 1945 Gender: Male Reason for Consult Reason for Consult: Drug Order/Clarification Clinical Note Clinical Note: per rn - "Pt reported pain 10/10 in left hip, given Davin and after an hour & 30 minutes still reports pain 10/10. Attempted repositioning and other non-pharmacological treatments, requesting stronger pain medication." morphine 2 mg iv x 1
[2022-11-28 05:17] LABS: BASOPHILS % (AUTO) 0.5 %; EOSINOPHILS # (AUTO) 0.2 10^3/uL (0.0-0.7); EOSINOPHILS % (AUTO) 3.1 %; HGB - HEMOGLOBIN 8.4 g/dL (14.0-18.0); LYMPHOCYTES # (AUTO) 1.4 10^3/uL (1.5-3.5); LYMPHOCYTES % (AUTO) 23.1 %; MEAN CORPUSCULAR HEMOGLOBIN 27.9 pg (27.0-31.0); MEAN CORPUSCULAR HGB CONC 31.1 g/dL (32.0-36.0); MEAN CORPUSCULAR VOLUME 89.7 fL (80.0-94.0); MEAN PLATELET VOLUME 10.8 fL (7.4-11.4); MONOCYTES # (AUTO) 0.8 10^3/uL (0.0-1.0); MONOCYTES % (AUTO) 12.9 %; NEUTROPHILS # (AUTO) 3.7 10^3/uL (1.5-6.6); NEUTROPHILS % (AUTO) 60.1 %; PLT - PLATELET COUNT 52 10^3/uL (130-450); RED BLOOD COUNT 3.01 10^6/uL (4.70-6.10); RED CELL DISTRIBUTION WIDTH 13.4 % (12.0-15.0); WHITE BLOOD COUNT 6.2 x10^3/uL (4.8-10.8)
[2022-11-28 05:29] LABS: ALBUMIN 2.6 g/dL (3.2-5.5); BILIRUBIN,DIRECT 0.16 mg/dL (0.03-0.18); BILIRUBIN,TOTAL 0.5 mg/dL (0.2-1.0); CALCIUM 7.8 mg/dL (8.5-10.3); CREATININE 3.5 mg/dL (0.6-1.3); POTASSIUM 3.6 mmol/L (3.5-4.5)
[2022-11-28 05:30] LABS: INR 1.1 (0.8-1.2); PT - PROTHROMBIN TIME 11.8 secs (9.9-12.6)
[2022-11-28] MEDS: PANTOPRAZOLE 40 MG TABLET PO SCH (06:27)
[2022-11-28] MEDS: GABAPENTIN 300 MG CAPSULE PO SCH ×3 (06:27→21:13)
[2022-11-28] MEDS: HYDROcod/ACETAM 5/325 MG TABLET PO PRN ×2 (07:44→15:40)
[2022-11-28] MEDS: LIDOCAINE PATCH 5% TOP SCH (08:00)
[2022-11-28] MEDS: LORATADINE 10 MG TABLET PO SCH (08:00)
[2022-11-28] MEDS: NYSTATIN CREAM 15 GM TUBE TOP SCH ×2 (08:00→21:12)
[2022-11-28] MEDS: carvediloL 12.5 MG TABLET PO SCH ×2 (08:00→21:25)
[2022-11-28] MEDS: TAMSULOSIN 0.4 MG CAPSULE PO SCH (08:00)
[2022-11-28] MEDS: SODIUM CHLORIDE FLUSH 0.9% 10 ML SYRINGE IVP SCH ×2 (08:04→15:29)
[2022-11-28] MEDS: FERROUS GLUCONATE 324 MG TABLET PO SCH (08:04)
[2022-11-28] MEDS: cefTRIAXone 1 GM in SODIUM CHLORIDE 0.9% MINIBAG 100 ML IV SCH (08:04)
[2022-11-28] MEDS: INSULIN LISPRO 300 UNIT/3 ML PEN SUBQ SCH ×5 (08:14→21:25)
[2022-11-28 09:22] LABS: ESTIMATED AVERAGE GLUCOSE 177 mg/dL (70-100); HEMOGLOBIN A1c% 7.8 % (4.27-6.07)
[2022-11-28] MEDS ORDERED: oxyCODONE/ACET 5/325 Prepack 4 PO STA (09:24)
[2022-11-28] MEDS ORDERED: ACETAMINOPHEN 325 MG TABLET PO PRN (10:14)
[2022-11-28] MEDS: oxyCODONE 5 MG TABLET PO PRN (11:02)
[2022-11-28] MEDS: AMPICILLIN/SULBACTAM 3 GM in SODIUM CHLORIDE 0.9% MINIBAG 100 ML IV SCH (12:19)
[2022-11-28] MEDS: CLINDAMYCIN 900 MG/50 ML 50 ML IV SCH ×2 (15:30→21:29)
--- NOTE | 2022-11-28 18:46 | PROVIDER PROGRESS NOTE ---
Assessment/Plan - Problem List (1) Bacteremia due to Streptococcus Assessment/Plan: Give unasyn and clindamycin to decrease the strep toxin await for sensitivity Repeat Bx on 11/28/2022 NGTD (2) Pyelonephritis Assessment/Plan: Has Enterococous UTI, give unasyn and clindamycin, well covered (3) Acute on chronic kidney failure Qualifiers: Acute renal failure type: unspecified Chronic kidney disease stage: stage 3 (moderate) Assessment/Plan: worsening renal function, may due to strep toxin continue with iv fluid, monitoring renal function (4) Rhabdomyolysis Assessment/Plan: CK trends down continue with iv fluid, decrease rate to 100ml/h follow up on ck - Current Meds Current Meds: Current Medications Generic Name Dose Route Start Last Admin Trade Name Freq PRN Reason Stop Dose Admin Acetaminophen 650 mg 11/26/22 23:49 11/27/22 16:39 Acetaminophen 325 Mg Tablet PO 650 mg Q4HR PRN Administration Pain 1 to 4, or Fever Hydrocodone Bitart/Acetaminophen 1 tab 11/27/22 01:35 11/28/22 15:40 Hydrocod/Acetam 5/325 Mg Tablet PO 1 tab Q4HR PRN Administration Moderate Pain (Level 4-6) Atorvastatin Calcium 40 mg 11/26/22 23:45 11/27/22 21:15 Atorvastatin 10 Mg Tablet PO 40 mg HS CATIE Administration Calamine 1 applic 11/27/22 17:22 11/27/22 18:45 Calamine/Zinc Oxide 177 Ml Bottle TOP 1 applic PRN PRN Administration SKIN CARE Carvedilol 25 mg 11/27/22 01:00 11/28/22 08:00 Carvedilol 12.5 Mg Tablet PO 25 mg BID CATIE Administration Diphenhydramine HCl 25 mg 11/27/22 22:20 11/27/22 22:33 Diphenhydramine 25 Mg Capsule PO 25 mg Q4HR PRN Administration Allergy Symptoms Duloxetine HCl 60 mg 11/26/22 23:41 11/27/22 21:17 Duloxetine 60 Mg Capsule PO Not Given HS CATIE Ferrous Gluconate 324 mg 11/28/22 08:00 11/28/22 08:04 Ferrous Gluconate 324 Mg Tablet PO 324 mg DAILYWM CATIE Administration Gabapentin 300 mg 11/27/22 01:00 11/28/22 14:44 Gabapentin 300 Mg Capsule PO 300 mg TID CATIE Administration Sodium Chloride 1,000 mls @ 200 mls/hr 11/27/22 17:41 11/28/22 15:39 Normal Saline 0.9% IV 200 mls/hr .Q5H CATIE Administration Clindamycin Phosphate 50 mls @ 50 mls/hr 11/28/22 14:00 11/28/22 16:30 Cleocin 900 Mg/50 Ml IV 11/29/22 13:59 Infused Q8HR CATIE Infusion Ampicillin Sodium/Sulbactam 100 mls @ 200 mls/hr 11/28/22 12:00 11/28/22 12:19 Sodium 3 gm/ Sodium Chloride IV 200 mls/hr Q12H CATIE Administration Insulin Human Lispro 1 - 9 unit 11/27/22 08:00 11/28/22 17:20 Insulin Lispro 300 Unit/3 Ml Pen SUBQ 3 unit 0800,1200,1700,2100 [facility] Administration Protocol Insulin Human Lispro 2 unit 11/28/22 17:00 11/28/22 17:19 Insulin Lispro 300 Unit/3 Ml Pen SUBQ 2 unit TIDWM [facility] Administration Protocol Lidocaine 1 patch 11/27/22 09:00 11/28/22 08:00 Lidocaine Patch 5% TOP 1 patch DAILY CATIE Administration Loratadine 10 mg 11/27/22 09:00 11/28/22 08:00 Loratadine 10 Mg Tablet PO 10 mg DAILY CATIE Administration Multi-Ingredient Ointment 1 applic 11/27/22 01:57 11/27/22 07:18 Zinc Oxide 20% Oint 30 Gm Tube TOP 1 applic PRN PRN Administration Skin Care Nystatin 1 applic 11/27/22 12:00 11/28/22 08:00 Nystatin Cream 15 Gm Tube TOP 1 applic BID CATIE Administration Oxycodone HCl 5 mg 11/28/22 10:14 11/28/22 11:02 Oxycodone 5 Mg Tablet PO 5 mg Q6H PRN Administration Moderate Pain (Level 4-6) Pantoprazole Sodium 40 mg 11/27/22 18:00 11/28/22 06:27 Pantoprazole 40 Mg Tablet PO 40 mg QDAC CATIE Administration Prochlorperazine Edisylate 10 mg 11/26/22 23:49 11/28/22 17:32 Prochlorperazine 10 Mg/2 Ml Vial IVP 10 mg Q6HR PRN Administration Nausea / Vomiting Sodium Chloride 10 ml 11/27/22 01:00 11/28/22 15:29 Sodium Chloride Flush 0.9% 10 Ml Syringe IVP Not Given 0100,0900,1700 CATIE Tamsulosin HCl 0.4 mg 11/27/22 09:00 11/28/22 08:00 Tamsulosin 0.4 Mg Capsule PO 0.4 mg DAILY CATIE Administration - Lab Result Fish Bone Diagrams: 11/28/22 05:05 11/28/22 05:05 - Additional Planning Condition/Complexity: Unstable My Orders: My Active Orders 11/28/22 10:14 oxyCODONE [Roxicodone] 5 mg PO Q6H PRN 11/28/22 12:00 Ampicillin/Sulbactam [Unasyn] 3 gm Sodium Chloride 0.9% Minibag [Normal Saline 0.9% Minibag] 100 ml IV Q12H 11/28/22 14:00 Clindamycin 900 mg/50 ml [Cleocin 900 mg/50 ml] 50 ml IV Q8HR 11/28/22 17:00 Insulin Lispro [Humalog Kwikpen U-100] 2 unit SUBQ TIDWM 11/29/22 14:00 Clindamycin 900 mg/50 ml [Cleocin 900 mg/50 ml] 900 mg in 50 ml IV Q8HR Plan Discussed with:: Patient Subjective - Subjective Patient Reports: Feeling Better, Back Pain, Other (flank pain) Objective Vital Signs: Vital Signs - 24 hr 11/27/22 11/27/22 11/28/22 20:56 23:40 08:00 Temperature 36.6 C 36.5 C 36.5 C Heart Rate [ 63 64 62 Brachial] Respiratory 18 20 20 Rate Blood Pressure 109/50 L 104/47 L 108/55 L [Left Brachial artery] O2 Saturation 95 96 97 11/28/22 16:00 Temperature 36.4 C L Heart Rate [ 66 Brachial] Respiratory 20 Rate Blood Pressure 112/50 L [Left Brachial artery] O2 Saturation 92 Oxygen O2 Source Room air I&O (Last 24 Hrs): Intake and Output Totals x24h 11/26/22 11/27/22 11/28/22 23:59 23:59 23:59 Intake Total 100 6445.583 3836.667 Output Total 100 1830 1750 Balance 0 4615.583 2086.667 General: Oriented x3, Mild distress HEENT: Atraumatic, PERRLA Neck: Supple, No JVD Neuro: Alert, Non Focal Cardiovascular: Regular rate Respiratory: Chest non-tender, No respiratory distress Abdomen: Normal bowel sounds Extremities: No clubbing, No edema - Results Results: Laboratory Results WBC 6.2 x10^3/uL (4.8-10.8) 11/28/22 05:05 RBC 3.01 10^6/uL (4.70-6.10) L 11/28/22 05:05 Hgb 8.4 g/dL (14.0-18.0) L 11/28/22 05:05 Hct 27.0 % (42.0-52.0) L 11/28/22 05:05 MCV 89.7 fL (80.0-94.0) 11/28/22 05:05 MCH 27.9 pg (27.0-31.0) 11/28/22 05:05 MCHC 31.1 g/dL (32.0-36.0) L 11/28/22 05:05 RDW 13.4 % (12.0-15.0) 11/28/22 05:05 Plt Count 52 10^3/uL (130-450) L 11/28/22 05:05 MPV 10.8 fL (7.4-11.4) 11/28/22 05:05 Neut # (Auto) 3.7 10^3/uL (1.5-6.6) 11/28/22 05:05 Lymph # (Auto) 1.4 10^3/uL (1.5-3.5) L 11/28/22 05:05 [place] # (Auto) 0.8 10^3/uL (0.0-1.0) 11/28/22 05:05 Eos # (Auto) 0.2 10^3/uL (0.0-0.7) 11/28/22 05:05 Baso # (Auto) 0.0 10^3/uL (0.0-0.1) 11/28/22 05:05 Absolute Nucleated RBC 0.00 x10^3/uL 11/28/22 05:05 Nucleated RBC % 0.0 /100WBC 11/28/22 05:05 PT 11.8 secs (9.9-12.6) 11/28/22 05:05 INR 1.1 (0.8-1.2) 11/28/22 05:05 Sodium 127 mmol/L (135-145) L 11/28/22 05:05 Potassium 3.6 mmol/L (3.5-4.5) 11/28/22 05:05 Chloride 99 mmol/L (101-111) L 11/28/22 05:05 Carbon Dioxide 20 mmol/L (21-32) L 11/28/22 05:05 Anion Gap 8.0 (6-13) 11/28/22 05:05 BUN 53 mg/dL (6-20) H 11/28/22 05:05 Creatinine 3.5 mg/dL (0.6-1.3) H 11/28/22 05:05 Estimated GFR (MDRD) 17 (>89) L 11/28/22 05:05 Glucose 140 mg/dL (74-104) H 11/28/22 05:05 POC Whole Bld Glucose 189 mg/dL (70 - 100) H 11/28/22 16:37 Estimat Average Glucose 177 mg/dL (70-100) H 11/28/22 05:05 Hemoglobin A1c % 7.8 % (4.27-6.07) H 11/28/22 05:05 Lactic Acid 1.3 mmol/L (0.5-2.2) 11/26/22 19:40 Calcium 7.8 mg/dL (8.5-10.3) L 11/28/22 05:05 Iron 15 ug/dL (50-212) L 11/27/22 05:00 TIBC 265 ug/dL (250-450) 11/27/22 05:00 % Saturation 6 % (20-50) L 11/27/22 05:00 Transferrin 189 mg/dL (203-362) L 11/27/22 05:00 Total Bilirubin 0.5 mg/dL (0.2-1.0) 11/28/22 05:05 Direct Bilirubin 0.16 mg/dL (0.03-0.18) 11/28/22 05:05 AST 151 IU/L (10-42) H 11/28/22 05:05 ALT 50 IU/L (10-60) 11/28/22 05:05 Alkaline Phosphatase 84 IU/L (42-121) 11/28/22 05:05 Total Creatine Kinase 5161 IU/L (30-223) H* 11/28/22 05:05 Total Protein 6.0 g/dL (6.4-8.9) L 11/28/22 05:05 Albumin 2.6 g/dL (3.2-5.5) L 11/28/22 05:05 Globulin 3.4 g/dL (2.1-4.2) 11/28/22 05:05 Albumin/Globulin Ratio 0.8 (1.0-2.2) L 11/26/22 19:40 Vitamin B12 746 pg/mL (180-914) 11/27/22 05:00 Folate > 44.6 ng/mL (5.90 - >24.8) 11/27/22 05:00 Urine Color YELLOW 11/26/22 19:50 Urine Clarity HAZY (CLEAR) 11/26/22 19:50 Urine pH 5.5 PH (5.0-7.5) 11/26/22 19:50 Ur Specific [place] 1.020 (1.002-1.030) 11/26/22 19:50 Urine Protein >=300 mg/dL (NEGATIVE) H 11/26/22 19:50 Urine Glucose (UA) NEGATIVE mg/dL (NEGATIVE) 11/26/22 19:50 Urine Ketones NEGATIVE mg/dL (NEGATIVE) 11/26/22 19:50 Urine Occult Blood LARGE (NEGATIVE) H 11/26/22 19:50 Urine Nitrite NEGATIVE (NEGATIVE) 11/26/22 19:50 Urine Bilirubin NEGATIVE (NEGATIVE) 11/26/22 19:50 Urine Urobilinogen 1 (NORMAL) E.U./dL (NORMAL) 11/26/22 19:50 Ur Leukocyte Esterase LARGE (NEGATIVE) H 11/26/22 19:50 Urine RBC 11-25 /HPF (0-5) H 11/26/22 19:50 Urine WBC >25 /HPF (0-3) H 11/26/22 19:50 Ur Squamous Epith Cells NONE SEEN (<= Few) 11/26/22 19:50 Urine Bacteria Moderate /HPF (None Seen) H 11/26/22 19:50 Urine Culture Comments INDICATED 11/26/22 19:50 Nasal Adenovirus (PCR) NOT DETECTED 11/26/22 19:35 Nasal B. parapertussis DNA (PCR) NOT DETECTED 11/26/22 19:35 Nasal Coronavir 229E PCR NOT DETECTED 11/26/22 19:35 Nasal Coronavir HKU1 PCR NOT DETECTED 11/26/22 19:35 Nasal Coronavir NL63 PCR NOT DETECTED 11/26/22 19:35 Nasal Coronavir OC43 PCR NOT DETECTED 11/26/22 19:35 Nasal Enterovir/Rhinovir PCR NOT DETECTED 11/26/22 19:35 Nasal Influenza B PCR NOT DETECTED 11/26/22 19:35 Nasal Influenza A PCR NOT DETECTED 11/26/22 19:35 Nasal Parainfluen 1 PCR NOT DETECTED 11/26/22 19:35 Nasal Parainfluen 2 PCR NOT DETECTED 11/26/22 19:35 Nasal Parainfluen 3 PCR NOT DETECTED 11/26/22 19:35 Nasal Parainfluen 4 PCR NOT DETECTED 11/26/22 19:35 Nasal RSV (PCR) NOT DETECTED 11/26/22 19:35 Nasal B.pertussis DNA PCR NOT DETECTED 11/26/22 19:35 Nasal C.pneumoniae (PCR) NOT DETECTED 11/26/22 19:35 [place] Human Metapneumo PCR NOT DETECTED 11/26/22 19:35 Nasal M.pneumoniae (PCR) NOT DETECTED 11/26/22 19:35 Nasal SARS-CoV-2 (PCR) NOT DETECTED 11/26/22 19:35 - Procedures Procedures: Procedures DETACHMENT AT RIGHT LOWER LEG, HIGH, OPEN APPROACH (08/18/17) INSERTION OF INFUSION DEV INTO SUP VENA CAVA, PERC APPROACH (10/03/20) TRANSFUSE NONAUT RED BLOOD CELLS IN PERIPH VEIN, PERC (08/18/17) ABX Reporting Has patient been on IV antibiotics over the past 48 hours?: Yes Current Medications - Current Medications Current Medications: Active Medications Acetaminophen (Acetaminophen 325 Mg Tablet) 650 mg PO Q4HR PRN PRN Reason: Pain 1 to 4, or Fever Last Admin: 11/27/22 16:39 Dose: 650 mg Hydrocodone Bitart/Acetaminophen (Hydrocod/Acetam 5/325 Mg Tablet) 1 tab PO Q4HR PRN PRN Reason: Moderate Pain (Level 4-6) Last Admin: 11/28/22 15:40 Dose: 1 tab Atorvastatin Calcium (Atorvastatin 10 Mg Tablet) 40 mg PO HS [facility] Last Admin: 11/27/22 21:15 Dose: 40 mg Calamine (Calamine/Zinc Oxide 177 Ml Bottle) 1 applic TOP PRN PRN PRN Reason: SKIN CARE Last Admin: 11/27/22 18:45 Dose: 1 applic Carvedilol (Carvedilol 12.5 Mg Tablet) 25 mg PO BID [facility] Last Admin: 11/28/22 08:00 Dose: 25 mg Diphenhydramine HCl (Diphenhydramine 25 Mg Capsule) 25 mg PO Q4HR PRN PRN Reason: Allergy Symptoms Last Admin: 11/27/22 22:33 Dose: 25 mg Duloxetine HCl (Duloxetine 60 Mg Capsule) 60 mg PO HS [facility] Last Admin: 11/27/22 21:17 Dose: Not Given Ferrous Gluconate (Ferrous Gluconate 324 Mg Tablet) 324 mg PO DAILYWM [facility] Last Admin: 11/28/22 08:04 Dose: 324 mg Gabapentin (Gabapentin 300 Mg Capsule) 300 mg PO TID [facility] Last Admin: 11/28/22 14:44 Dose: 300 mg Sodium Chloride (Normal Saline 0.9%) 1,000 mls @ 200 mls/hr IV .Q5H [facility] Last Admin: 11/28/22 15:39 Dose: 200 mls/hr Clindamycin Phosphate (Cleocin 900 Mg/50 Ml) 50 mls @ 50 mls/hr IV Q8HR [facility] Stop: 11/29/22 13:59 Last Infusion: 11/28/22 16:30 Dose: Infused Ampicillin Sodium/Sulbactam (Sodium 3 gm/ Sodium Chloride) 100 mls @ 200 mls/hr IV Q12H [facility] Last Admin: 11/28/22 12:19 Dose: 200 mls/hr Clindamycin/Sodium Chloride (Cleocin 900 Mg/50 Ml) 900 mg in 50 mls @ 50 mls/hr IV Q8HR [facility] Insulin Human Lispro (Insulin Lispro 300 Unit/3 Ml Pen) 1 - 9 unit SUBQ 0800,1200,1700,2100 [facility]; Protocol Last Admin: 11/28/22 17:20 Dose: 3 unit Insulin Human Lispro (Insulin Lispro 300 Unit/3 Ml Pen) 2 unit SUBQ TIDWM [facility]; Protocol Last Admin: 11/28/22 17:19 Dose: 2 unit Lidocaine (Lidocaine Patch 5%) 1 patch TOP DAILY [facility] Last Admin: 11/28/22 08:00 Dose: 1 patch Loratadine (Loratadine 10 Mg Tablet) 10 mg PO DAILY [facility] Last Admin: 11/28/22 08:00 Dose: 10 mg Multi-Ingredient Ointment (Zinc Oxide 20% Oint 30 Gm Tube) 1 applic TOP PRN PRN PRN Reason: Skin Care Last Admin: 11/27/22 07:18 Dose: 1 applic Nystatin (Nystatin Cream 15 Gm Tube) 1 applic TOP BID [facility] Last Admin: 11/28/22 08:00 Dose: 1 applic Ondansetron HCl (Ondansetron 4 Mg/2 Ml Vial) 4 mg IVP Q6HR PRN PRN Reason: Nausea / Vomiting Ondansetron HCl (Ondansetron Odt 4 Mg Tablet) 4 mg TL Q6HR PRN PRN Reason: Nausea / Vomiting Oxycodone HCl (Oxycodone 5 Mg Tablet) 5 mg PO Q6H PRN PRN Reason: Moderate Pain (Level 4-6) Last Admin: 11/28/22 11:02 Dose: 5 mg Pantoprazole Sodium (Pantoprazole 40 Mg Tablet) 40 mg PO QDAC [facility] Last Admin: 11/28/22 06:27 Dose: 40 mg Prochlorperazine Edisylate (Prochlorperazine 10 Mg/2 Ml Vial) 10 mg IVP Q6HR PRN PRN Reason: Nausea / Vomiting Last Admin: 11/28/22 17:32 Dose: 10 mg Sodium Chloride (Sodium Chloride Flush 0.9% 10 Ml Syringe) 10 ml IVP PRN PRN PRN Reason: NEEDED PER PROVIDER ORDERS Sodium Chloride (Sodium Chloride Flush 0.9% 10 Ml Syringe) 10 ml IVP 0100,0900,1700 [facility] Last Admin: 11/28/22 15:29 Dose: Not Given Tamsulosin HCl (Tamsulosin 0.4 Mg Capsule) 0.4 mg PO DAILY [facility] Last Admin: 11/28/22 08:00 Dose: 0.4 mg Loratadine 10 mg PO DAILY 11/07/12 Furosemide 40 mg PO BID 12/30/17 Gabapentin [Neurontin] 300 mg PO TID 06/01/18 Losartan [Cozaar] 50 mg PO DAILY 06/01/18 Insulin Glargine [Lantus Solostar] 100 unit SUBQ QDBREAKFAST 10/02/20 Insulin Glargine [Lantus Solostar] 50 units SUBQ QPM 11/27/22
[2022-11-28] MEDS: ATORVASTATIN 10 MG TABLET PO SCH (21:13)
[2022-11-28] MEDS: DULoxetine 60 MG CAPSULE PO SCH (21:24)
[2022-11-29] MEDS: SODIUM CHLORIDE FLUSH 0.9% 10 ML SYRINGE IVP SCH ×4 (01:35→23:28)
[2022-11-29] MEDS: AMPICILLIN/SULBACTAM 3 GM in SODIUM CHLORIDE 0.9% MINIBAG 100 ML IV SCH ×3 (01:35→23:27)
[2022-11-29 05:25] LABS: BASOPHILS % (AUTO) 0.4 %; EOSINOPHILS # (AUTO) 0.2 10^3/uL (0.0-0.7); EOSINOPHILS % (AUTO) 4.9 %; HCT - HEMATOCRIT 25.7 % (42.0-52.0); HGB - HEMOGLOBIN 8.1 g/dL (14.0-18.0); LYMPHOCYTES # (AUTO) 1.1 10^3/uL (1.5-3.5); LYMPHOCYTES % (AUTO) 24.3 %; MEAN CORPUSCULAR HEMOGLOBIN 27.8 pg (27.0-31.0); MEAN CORPUSCULAR HGB CONC 31.5 g/dL (32.0-36.0); MEAN CORPUSCULAR VOLUME 88.3 fL (80.0-94.0); MEAN PLATELET VOLUME 11.1 fL (7.4-11.4); MONOCYTES # (AUTO) 0.6 10^3/uL (0.0-1.0); MONOCYTES % (AUTO) 12.5 %; NEUTROPHILS # (AUTO) 2.6 10^3/uL (1.5-6.6); NEUTROPHILS % (AUTO) 57.5 %; PLT - PLATELET COUNT 61 10^3/uL (130-450); RED BLOOD COUNT 2.91 10^6/uL (4.70-6.10); RED CELL DISTRIBUTION WIDTH 13.2 % (12.0-15.0); WHITE BLOOD COUNT 4.5 x10^3/uL (4.8-10.8)
[2022-11-29 05:37] LABS: CALCIUM 7.9 mg/dL (8.5-10.3); CREATININE 3.1 mg/dL (0.6-1.3); POTASSIUM 3.9 mmol/L (3.5-4.5)
[2022-11-29] MEDS: GABAPENTIN 300 MG CAPSULE PO SCH ×3 (06:19→21:15)
[2022-11-29] MEDS: PANTOPRAZOLE 40 MG TABLET PO SCH (06:19)
[2022-11-29] MEDS: CLINDAMYCIN 900 MG/50 ML 50 ML IV SCH (06:19)
[2022-11-29] MEDS: SODIUM CHLORIDE 0.9% 1,000 ML IV SCH ×2 (06:20→15:52)
--- NOTE | 2022-11-29 07:51 | PROVIDER PROGRESS NOTE ---
Assessment/Plan - Problem List (1) Bacteremia due to Streptococcus Assessment/Plan: Repeat culture collected on 11/28/2022, no growth to date blood culture sensitivity reports sensitive to ampicillin, resistant to clindamycin. De- escalate patient to using Unasyn only May need total 14 days of antibiotics after clearance of bacteremia (2) Pyelonephritis Assessment/Plan: On Unasyn, continue (3) Acute on chronic kidney failure Qualifiers: Acute renal failure type: unspecified Chronic kidney disease stage: stage 3 (moderate) Assessment/Plan: Secondary to rhabdo, Continue with IV fluid, slow down the rate, monitoring creatinine level (4) Rhabdomyolysis Qualifiers: Qualified Code(s): M62.82 - Rhabdomyolysis Assessment/Plan: improving, CK level trends down to 2400 Continue IV fluid - Current Meds Current Meds: Current Medications Generic Name Dose Route Start Last Admin Trade Name Freq PRN Reason Stop Dose Admin Acetaminophen 650 mg 11/26/22 23:49 11/27/22 16:39 Acetaminophen 325 Mg Tablet PO 650 mg Q4HR PRN Administration Pain 1 to 4, or Fever Hydrocodone Bitart/Acetaminophen 1 tab 11/27/22 01:35 11/28/22 15:40 Hydrocod/Acetam 5/325 Mg Tablet PO 1 tab Q4HR PRN Administration Moderate Pain (Level 4-6) Atorvastatin Calcium 40 mg 11/26/22 23:45 11/28/22 21:13 Atorvastatin 10 Mg Tablet PO 40 mg HS CATIE Administration Calamine 1 applic 11/27/22 17:22 11/27/22 18:45 Calamine/Zinc Oxide 177 Ml Bottle TOP 1 applic PRN PRN Administration SKIN CARE Carvedilol 25 mg 11/27/22 01:00 11/28/22 21:25 Carvedilol 12.5 Mg Tablet PO 25 mg BID CATIE Administration Diphenhydramine HCl 25 mg 11/27/22 22:20 11/27/22 22:33 Diphenhydramine 25 Mg Capsule PO 25 mg Q4HR PRN Administration Allergy Symptoms Duloxetine HCl 60 mg 11/26/22 23:41 11/28/22 21:24 Duloxetine 60 Mg Capsule PO 60 mg HS CATIE Administration Ferrous Gluconate 324 mg 11/28/22 08:00 11/28/22 08:04 Ferrous Gluconate 324 Mg Tablet PO 324 mg DAILYWM CATIE Administration Gabapentin 300 mg 11/27/22 01:00 11/29/22 06:19 Gabapentin 300 Mg Capsule PO 300 mg TID CATIE Administration Clindamycin Phosphate 50 mls @ 50 mls/hr 11/28/22 14:00 11/29/22 07:21 Cleocin 900 Mg/50 Ml IV 11/29/22 13:59 Infused Q8HR CATIE Infusion Ampicillin Sodium/Sulbactam 100 mls @ 200 mls/hr 11/28/22 12:00 11/29/22 02:05 Sodium 3 gm/ Sodium Chloride IV Infused Q12H CATIE Infusion Sodium Chloride 1,000 mls @ 125 mls/hr 11/28/22 20:00 11/29/22 06:20 Normal Saline 0.9% IV 11/29/22 19:59 125 mls/hr .Q8H CATIE Administration Insulin Human Lispro 1 - 9 unit 11/27/22 08:00 11/28/22 21:25 Insulin Lispro 300 Unit/3 Ml Pen SUBQ 3 unit 0800,1200,1700,2100 CATIE Administration Protocol Insulin Human Lispro 2 unit 11/28/22 17:00 11/28/22 17:19 Insulin Lispro 300 Unit/3 Ml Pen SUBQ 2 unit TIDWM [facility] Administration Protocol Lidocaine 1 patch 11/27/22 09:00 11/28/22 08:00 Lidocaine Patch 5% TOP 1 patch DAILY CATIE Administration Loratadine 10 mg 11/27/22 09:00 11/28/22 08:00 Loratadine 10 Mg Tablet PO 10 mg DAILY CATIE Administration Multi-Ingredient Ointment 1 applic 11/27/22 01:57 11/27/22 07:18 Zinc Oxide 20% Oint 30 Gm Tube TOP 1 applic PRN PRN Administration Skin Care Nystatin 1 applic 11/27/22 12:00 11/28/22 21:12 Nystatin Cream 15 Gm Tube TOP 1 applic BID CATIE Administration Oxycodone HCl 5 mg 11/28/22 10:14 11/28/22 11:02 Oxycodone 5 Mg Tablet PO 5 mg Q6H PRN Administration Moderate Pain (Level 4-6) Pantoprazole Sodium 40 mg 11/27/22 18:00 11/29/22 06:19 Pantoprazole 40 Mg Tablet PO 40 mg QDAC CATIE Administration Prochlorperazine Edisylate 10 mg 11/26/22 23:49 11/28/22 17:32 Prochlorperazine 10 Mg/2 Ml Vial IVP 10 mg Q6HR PRN Administration Nausea / Vomiting Sodium Chloride 10 ml 11/27/22 01:00 11/29/22 01:35 Sodium Chloride Flush 0.9% 10 Ml Syringe IVP 10 ml 0100,0900,1700 CATIE Administration Tamsulosin HCl 0.4 mg 11/27/22 09:00 11/28/22 08:00 Tamsulosin 0.4 Mg Capsule PO 0.4 mg DAILY CATIE Administration - Lab Result Lab results reviewed: Yes Fish Bone Diagrams: 11/29/22 04:40 11/29/22 04:40 - Additional Planning Condition/Complexity: Improved My Orders: My Active Orders 11/28/22 10:14 oxyCODONE [Roxicodone] 5 mg PO Q6H PRN 11/28/22 12:00 Ampicillin/Sulbactam [Unasyn] 3 gm Sodium Chloride 0.9% Minibag [Normal Saline 0.9% Minibag] 100 ml IV Q12H 11/28/22 14:00 Clindamycin 900 mg/50 ml [Cleocin 900 mg/50 ml] 50 ml IV Q8HR 11/28/22 17:00 Insulin Lispro [Humalog Kwikpen U-100] 2 unit SUBQ TIDWM 11/28/22 20:00 Sodium Chloride 0.9% [Normal Saline 0.9%] 1,000 ml IV 125 mls/hr Plan Discussed with:: Patient Time Spent: 31-60 minutes Subjective - Subjective Patient Reports: Feeling Better (Patient overall feels improved, able to move around a little more than before, the flank pain complaint yesterday has resolved. Appetite is fair, has not having bowel movement yet would like to have some bowel regimen), Constipation Objective Vital Signs: Vital Signs - 24 hr 11/28/22 11/28/22 11/28/22 08:00 16:00 23:41 Temperature 36.5 C 36.4 C L 36.5 C Heart Rate [ 62 66 64 Brachial] Respiratory 20 20 22 Rate Blood Pressure 108/55 L 112/50 L 104/52 L [Left Brachial artery] O2 Saturation 97 92 92 Oxygen O2 Source Room air I&O (Last 24 Hrs): Intake and Output Totals x24h 11/27/22 11/28/22 11/29/22 23:59 23:59 23:59 Intake Total 6445.583 5168.751 1367.916 Output Total 1830 2650 800 Balance 4615.583 2518.751 567.916 General: Alert, Oriented x3 HEENT: PERRLA, EOMI Neck: Supple Neuro: Alert, Non Focal, CN 2-12 Grossly Intact Cardiovascular: Regular rate Respiratory: No respiratory distress, Breath sounds nml Abdomen: Soft, No tenderness Genitourinary: Other (On [place]) Extremities: No edema, Other (Right BKA, left leg compression stocking, chronic wound covered with dressing appears stable) - Results Results: Laboratory Results WBC 4.5 x10^3/uL (4.8-10.8) L 11/29/22 04:40 RBC 2.91 10^6/uL (4.70-6.10) L 11/29/22 04:40 Hgb 8.1 g/dL (14.0-18.0) L 11/29/22 04:40 Hct 25.7 % (42.0-52.0) L 11/29/22 04:40 MCV 88.3 fL (80.0-94.0) 11/29/22 04:40 MCH 27.8 pg (27.0-31.0) 11/29/22 04:40 MCHC 31.5 g/dL (32.0-36.0) L 11/29/22 04:40 RDW 13.2 % (12.0-15.0) 11/29/22 04:40 Plt Count 61 10^3/uL (130-450) L 11/29/22 04:40 MPV 11.1 fL (7.4-11.4) 11/29/22 04:40 Neut # (Auto) 2.6 10^3/uL (1.5-6.6) 11/29/22 04:40 Lymph # (Auto) 1.1 10^3/uL (1.5-3.5) L 11/29/22 04:40 [place] # (Auto) 0.6 10^3/uL (0.0-1.0) 11/29/22 04:40 Eos # (Auto) 0.2 10^3/uL (0.0-0.7) 11/29/22 04:40 Baso # (Auto) 0.0 10^3/uL (0.0-0.1) 11/29/22 04:40 Absolute Nucleated RBC 0.00 x10^3/uL 11/29/22 04:40 Nucleated RBC % 0.0 /100WBC 11/29/22 04:40 PT 11.8 secs (9.9-12.6) 11/28/22 05:05 INR 1.1 (0.8-1.2) 11/28/22 05:05 Sodium 129 mmol/L (135-145) L 11/29/22 04:40 Potassium 3.9 mmol/L (3.5-4.5) 11/29/22 04:40 Chloride 103 mmol/L (101-111) 11/29/22 04:40 Carbon Dioxide 18 mmol/L (21-32) L 11/29/22 04:40 Anion Gap 8.0 (6-13) 11/29/22 04:40 BUN 58 mg/dL (6-20) H 11/29/22 04:40 Creatinine 3.1 mg/dL (0.6-1.3) H 11/29/22 04:40 Estimated GFR (MDRD) 20 (>89) L 11/29/22 04:40 Glucose 153 mg/dL (74-104) H 11/29/22 04:40 POC Whole Bld Glucose 152 mg/dL (70 - 100) H 11/29/22 07:37 Estimat Average Glucose 177 mg/dL (70-100) H 11/28/22 05:05 Hemoglobin A1c % 7.8 % (4.27-6.07) H 11/28/22 05:05 Lactic Acid 1.3 mmol/L (0.5-2.2) 11/26/22 19:40 Calcium 7.9 mg/dL (8.5-10.3) L 11/29/22 04:40 Iron 15 ug/dL (50-212) L 11/27/22 05:00 TIBC 265 ug/dL (250-450) 11/27/22 05:00 % Saturation 6 % (20-50) L 11/27/22 05:00 Transferrin 189 mg/dL (203-362) L 11/27/22 05:00 Total Bilirubin 0.5 mg/dL (0.2-1.0) 11/28/22 05:05 Direct Bilirubin 0.16 mg/dL (0.03-0.18) 11/28/22 05:05 AST 151 IU/L (10-42) H 11/28/22 05:05 ALT 50 IU/L (10-60) 11/28/22 05:05 Alkaline Phosphatase 84 IU/L (42-121) 11/28/22 05:05 Total Creatine Kinase 2453 IU/L (30-223) H* 11/29/22 04:40 Total Protein 6.0 g/dL (6.4-8.9) L 11/28/22 05:05 Albumin 2.6 g/dL (3.2-5.5) L 11/28/22 05:05 Globulin 3.4 g/dL (2.1-4.2) 11/28/22 05:05 Albumin/Globulin Ratio 0.8 (1.0-2.2) L 11/26/22 19:40 Vitamin B12 746 pg/mL (180-914) 11/27/22 05:00 Folate > 44.6 ng/mL (5.90 - >24.8) 11/27/22 05:00 Urine Color YELLOW 11/26/22 19:50 Urine Clarity HAZY (CLEAR) 11/26/22 19:50 Urine pH 5.5 PH (5.0-7.5) 11/26/22 19:50 Ur Specific [place] 1.020 (1.002-1.030) 11/26/22 19:50 Urine Protein >=300 mg/dL (NEGATIVE) H 11/26/22 19:50 Urine Glucose (UA) NEGATIVE mg/dL (NEGATIVE) 11/26/22 19:50 Urine Ketones NEGATIVE mg/dL (NEGATIVE) 11/26/22 19:50 Urine Occult Blood LARGE (NEGATIVE) H 11/26/22 19:50 Urine Nitrite NEGATIVE (NEGATIVE) 11/26/22 19:50 Urine Bilirubin NEGATIVE (NEGATIVE) 11/26/22 19:50 Urine Urobilinogen 1 (NORMAL) E.U./dL (NORMAL) 11/26/22 19:50 Ur Leukocyte Esterase LARGE (NEGATIVE) H 11/26/22 19:50 Urine RBC 11-25 /HPF (0-5) H 11/26/22 19:50 Urine WBC >25 /HPF (0-3) H 11/26/22 19:50 Ur Squamous Epith Cells NONE SEEN (<= Few) 11/26/22 19:50 Urine Bacteria Moderate /HPF (None Seen) H 11/26/22 19:50 Urine Culture Comments INDICATED 11/26/22 19:50 Nasal Adenovirus (PCR) NOT DETECTED 11/26/22 19:35 Nasal B. parapertussis DNA (PCR) NOT DETECTED 11/26/22 19:35 Nasal Coronavir 229E PCR NOT DETECTED 11/26/22 19:35 Nasal Coronavir HKU1 PCR NOT DETECTED 11/26/22 19:35 Nasal Coronavir NL63 PCR NOT DETECTED 11/26/22 19:35 Nasal Coronavir OC43 PCR NOT DETECTED 11/26/22 19:35 Nasal Enterovir/Rhinovir PCR NOT DETECTED 11/26/22 19:35 Nasal Influenza B PCR NOT DETECTED 11/26/22 19:35 Nasal Influenza A PCR NOT DETECTED 11/26/22 19:35 Nasal Parainfluen 1 PCR NOT DETECTED 11/26/22 19:35 Nasal Parainfluen 2 PCR NOT DETECTED 11/26/22 19:35 Nasal Parainfluen 3 PCR NOT DETECTED 11/26/22 19:35 Nasal Parainfluen 4 PCR NOT DETECTED 11/26/22 19:35 Nasal RSV (PCR) NOT DETECTED 11/26/22 19:35 Nasal B.pertussis DNA PCR NOT DETECTED 11/26/22 19:35 Nasal C.pneumoniae (PCR) NOT DETECTED 11/26/22 19:35 [place] Human Metapneumo PCR NOT DETECTED 11/26/22 19:35 Nasal M.pneumoniae (PCR) NOT DETECTED 11/26/22 19:35 Nasal SARS-CoV-2 (PCR) NOT DETECTED 11/26/22 19:35 - Procedures Procedures: Procedures DETACHMENT AT RIGHT LOWER LEG, HIGH, OPEN APPROACH (08/18/17) INSERTION OF INFUSION DEV INTO SUP VENA CAVA, PERC APPROACH (10/03/20) TRANSFUSE NONAUT RED BLOOD CELLS IN PERIPH VEIN, PERC (08/18/17) Current Medications - Current Medications Current Medications: Active Medications Generic Name Dose Route Start Last Admin Trade Name Freq PRN Reason Stop Dose Admin Acetaminophen 650 mg 08/28/23 23:49 11/27/22 16:39 Acetaminophen 325 Mg Tablet PO 650 mg Q4HR PRN Administration Pain 1 to 4, or Fever Hydrocodone Bitart/Acetaminophen 1 tab 11/27/22 01:35 11/28/22 15:40 Hydrocod/Acetam 5/325 Mg Tablet PO 1 tab Q4HR PRN Administration Moderate Pain (Level 4-6) Atorvastatin Calcium 40 mg 11/26/22 23:45 11/28/22 21:13 Atorvastatin 10 Mg Tablet PO 40 mg HS CATIE Administration Calamine 1 applic 11/27/22 17:22 11/27/22 18:45 Calamine/Zinc Oxide 177 Ml Bottle TOP 1 applic PRN PRN Administration SKIN CARE Carvedilol 25 mg 11/27/22 01:00 11/29/22 07:54 Carvedilol 12.5 Mg Tablet PO 25 mg BID CATIE Administration Diphenhydramine HCl 25 mg 11/27/22 22:20 11/27/22 22:33 Diphenhydramine 25 Mg Capsule PO 25 mg Q4HR PRN Administration Allergy Symptoms Docusate Sodium 250 - 500 mg 11/30/22 09:00 Docusate Sodium 250 Mg Capsule PO DAILY CATIE Duloxetine HCl 60 mg 11/26/22 23:41 11/28/22 21:24 Duloxetine 60 Mg Capsule PO 60 mg HS CATIE Administration Ferrous Gluconate 324 mg 11/28/22 08:00 11/29/22 07:54 Ferrous Gluconate 324 Mg Tablet PO 324 mg DAILYWM CATIE Administration Gabapentin 300 mg 11/27/22 01:00 11/29/22 14:08 Gabapentin 300 Mg Capsule PO 300 mg TID CATIE Administration Ampicillin Sodium/Sulbactam 100 mls @ 200 mls/hr 11/28/22 12:00 11/29/22 12:31 Sodium 3 gm/ Sodium Chloride IV Infused Q12H CATIE Infusion Sodium Chloride 1,000 mls @ 125 mls/hr 11/28/22 20:00 11/29/22 15:52 Normal Saline 0.9% IV 11/29/22 19:59 125 mls/hr .Q8H CATIE Administration Insulin Human Lispro 1 - 9 unit 11/27/22 08:00 11/29/22 11:46 Insulin Lispro 300 Unit/3 Ml Pen SUBQ 3 unit 0800,1200,1700,2100 CATIE Administration Protocol Insulin Human Lispro 2 unit 11/28/22 17:00 11/29/22 11:46 Insulin Lispro 300 Unit/3 Ml Pen SUBQ 2 unit TIDWM CATIE Administration Protocol Lidocaine 1 patch 11/27/22 09:00 11/29/22 07:53 Lidocaine Patch 5% TOP 1 patch DAILY CATIE Administration Loratadine 10 mg 11/27/22 09:00 11/29/22 07:54 Loratadine 10 Mg Tablet PO 10 mg DAILY CATIE Administration Multi-Ingredient Ointment 1 applic 11/27/22 01:57 11/27/22 07:18 Zinc Oxide 20% Oint 30 Gm Tube TOP 1 applic PRN PRN Administration Skin Care Nystatin 1 applic 11/27/22 12:00 11/29/22 07:54 Nystatin Cream 15 Gm Tube TOP 1 applic BID CATIE Administration Ondansetron HCl 4 mg 11/26/22 23:49 Ondansetron 4 Mg/2 Ml Vial IVP Q6HR PRN Nausea / Vomiting Ondansetron HCl 4 mg 11/26/22 23:49 Ondansetron Odt 4 Mg Tablet TL Q6HR PRN Nausea / Vomiting Oxycodone HCl 5 mg 11/28/22 10:14 11/28/22 11:02 Oxycodone 5 Mg Tablet PO 5 mg Q6H PRN Administration Moderate Pain (Level 4-6) Pantoprazole Sodium 40 mg 11/27/22 18:00 11/29/22 06:19 Pantoprazole 40 Mg Tablet PO 40 mg QDAC CATIE Administration Polyethylene Glycol 17 gm 11/29/22 13:00 11/29/22 14:08 Polyethylene Glycol 3350 17 Gm Packet PO 17 gm DAILY CATIE Administration Prochlorperazine Edisylate 10 mg 11/26/22 23:49 11/28/22 17:32 Prochlorperazine 10 Mg/2 Ml Vial IVP 10 mg Q6HR PRN Administration Nausea / Vomiting Senna 8.6 - 17.2 mg 11/30/22 09:00 Senna 8.6 Mg Tablet PO DAILY CATIE Sodium Chloride 10 ml 11/26/22 23:49 Sodium Chloride Flush 0.9% 10 Ml Syringe IVP PRN PRN NEEDED PER PROVIDER ORDERS Sodium Chloride 10 ml 11/27/22 01:00 11/29/22 15:52 Sodium Chloride Flush 0.9% 10 Ml Syringe IVP Not Given 0100,0900,1700 CATIE Tamsulosin HCl 0.4 mg 11/27/22 09:00 11/29/22 07:54 Tamsulosin 0.4 Mg Capsule PO 0.4 mg DAILY CATIE Administration Loratadine 10 mg PO DAILY 11/07/12 Furosemide 40 mg PO BID 12/30/17 Gabapentin [Neurontin] 300 mg PO TID 06/01/18 Losartan [Cozaar] 50 mg PO DAILY 06/01/18 Insulin Glargine [Lantus Solostar] 100 unit SUBQ QDBREAKFAST 10/02/20 Insulin Glargine [Lantus Solostar] 50 units SUBQ QPM 11/27/22
[2022-11-29] MEDS: LIDOCAINE PATCH 5% TOP SCH (07:53)
[2022-11-29] MEDS: INSULIN LISPRO 300 UNIT/3 ML PEN SUBQ SCH ×7 (07:53→21:10)
[2022-11-29] MEDS: LORATADINE 10 MG TABLET PO SCH (07:54)
[2022-11-29] MEDS: FERROUS GLUCONATE 324 MG TABLET PO SCH (07:54)
[2022-11-29] MEDS: TAMSULOSIN 0.4 MG CAPSULE PO SCH (07:54)
[2022-11-29] MEDS: NYSTATIN CREAM 15 GM TUBE TOP SCH ×2 (07:54→21:13)
[2022-11-29] MEDS: carvediloL 12.5 MG TABLET PO SCH ×2 (07:54→21:10)
[2022-11-29] MEDS ORDERED: CLINDAMYCIN 900 MG/50 ML 900 MG/50 ML BAG IV SCH (14:00)
[2022-11-29] MEDS: polyethylene glycoL 3350 17 GM PACKET PO SCH (14:08)
[2022-11-29] MEDS: HYDROcod/ACETAM 5/325 MG TABLET PO PRN (17:50)
[2022-11-29 18:38] LABS: FECAL OCCULT BLOOD (FIT) POSITIVE (NEGATIVE)
[2022-11-29] MEDS: ATORVASTATIN 10 MG TABLET PO SCH (21:09)
[2022-11-29] MEDS: DULoxetine 60 MG CAPSULE PO SCH (21:11)
[2022-11-29] MEDS: ZINC OXIDE 20% OINT 30 GM TUBE TOP PRN (21:48)
[2022-11-30 05:22] LABS: BASOPHILS % (AUTO) 0.4 %; EOSINOPHILS # (AUTO) 0.2 10^3/uL (0.0-0.7); EOSINOPHILS % (AUTO) 4.8 %; HCT - HEMATOCRIT 25.8 % (42.0-52.0); HGB - HEMOGLOBIN 8.2 g/dL (14.0-18.0); LYMPHOCYTES % (AUTO) 20.2 %; MEAN CORPUSCULAR HEMOGLOBIN 27.6 pg (27.0-31.0); MEAN CORPUSCULAR HGB CONC 31.8 g/dL (32.0-36.0); MEAN CORPUSCULAR VOLUME 86.9 fL (80.0-94.0); MEAN PLATELET VOLUME 10.7 fL (7.4-11.4); MONOCYTES # (AUTO) 0.6 10^3/uL (0.0-1.0); MONOCYTES % (AUTO) 11.1 %; NEUTROPHILS # (AUTO) 3.1 10^3/uL (1.5-6.6); NEUTROPHILS % (AUTO) 62.3 %; PLT - PLATELET COUNT 69 10^3/uL (130-450); RED BLOOD COUNT 2.97 10^6/uL (4.70-6.10); RED CELL DISTRIBUTION WIDTH 13.2 % (12.0-15.0)
[2022-11-30 05:48] LABS: CREATININE 2.8 mg/dL (0.6-1.3); POTASSIUM 4.1 mmol/L (3.5-4.5)
[2022-11-30] MEDS: oxyCODONE 5 MG TABLET PO PRN (06:24)
[2022-11-30] MEDS: PANTOPRAZOLE 40 MG TABLET PO SCH (06:52)
[2022-11-30] MEDS: GABAPENTIN 300 MG CAPSULE PO SCH ×3 (06:52→21:34)
[2022-11-30] MEDS: carvediloL 12.5 MG TABLET PO SCH ×2 (08:34→21:36)
[2022-11-30] MEDS: FERROUS GLUCONATE 324 MG TABLET PO SCH (08:34)
[2022-11-30] MEDS: LIDOCAINE PATCH 5% TOP SCH (08:34)
[2022-11-30] MEDS: LORATADINE 10 MG TABLET PO SCH (08:34)
[2022-11-30] MEDS: TAMSULOSIN 0.4 MG CAPSULE PO SCH (08:34)
[2022-11-30] MEDS: INSULIN LISPRO 300 UNIT/3 ML PEN SUBQ SCH ×7 (08:35→21:35)
[2022-11-30] MEDS: NYSTATIN CREAM 15 GM TUBE TOP SCH ×2 (08:35→21:34)
[2022-11-30] MEDS: DOCUSATE SODIUM 250 MG CAPSULE PO SCH (08:35)
[2022-11-30] MEDS: polyethylene glycoL 3350 17 GM PACKET PO SCH (08:35)
[2022-11-30] MEDS: SENNA 8.6 MG TABLET PO SCH (08:36)
[2022-11-30] MEDS: SODIUM CHLORIDE FLUSH 0.9% 10 ML SYRINGE IVP SCH ×2 (08:36→17:27)
[2022-11-30] MEDS: HYDROcod/ACETAM 5/325 MG TABLET PO PRN (11:28)
[2022-11-30] MEDS: AMPICILLIN/SULBACTAM 3 GM in SODIUM CHLORIDE 0.9% MINIBAG 100 ML IV SCH (12:07)
--- NOTE | 2022-11-30 12:25 | PROVIDER PROGRESS NOTE ---
Assessment/Plan - Problem List (1) Bacteremia due to Streptococcus Assessment/Plan: Repeat culture collected on 11/28/2022, no growth to date The 11/26 blood culture growing Strep mitis sensitivity reports sensitive to ampicillin, resistant to clindamycin. De-escalated patient to using Unasyn only Plan: He will need total 14 days of antibiotics after clearance of bacteremia (hopefully at a SNF) Will order PICC line insertion to be done today We will order Echocardiogram to rule out endocarditis. I do not hear a murmur but he has obesity and a murmur may be present. If he has a vegetation, he would need 4 to 6 weeks of IV antibiotics. (We have no health care sanitary technician here today, which is Saturday, not until Saturday through of next week). (2) Enterococcus UTI Assessment/Plan: On Unasyn, continue (3) Acute urinary retention Assessment/Plan: He has a large prostate and had pelvic pain and urinary retention. Mahan was placed and he wants it left in Plan: Continue with a Mahan He will need outpatient urology management (4) Acute on chronic kidney failure Qualifiers: Acute renal failure type: unspecified Chronic kidney disease stage: stage 3 (moderate) Assessment/Plan: Secondary to rhabdo IV fluids were stopped yesterday 11/29 Plan: Cont monitoring creatinine level (5) Rhabdomyolysis Qualifiers: Qualified Code(s): M62.82 - Rhabdomyolysis Assessment/Plan: He fell at home and laid there for prolonged period of time CK level trending down daily (all labs were reviewed) IV fluids were stopped yesterday 11/29 Plan: PT is seeing him regarding the fall. The patient refuses to live in a long-term custodial (6) DM Type 2 Assessment/Plan: He was taking Lantus 100 units in a.m. and 15 units in p.m. at home, A1c came back at 7.8 Plan: Continue with sliding scale insulin and nutrition coverage I will start Lantus (Semglee) 5 units sq BID here (7) Chronic anemia Impression: He is chronically anemic at 9.0-9.7. B12 was normal at 746. Folate was greater than 44.6. Iron is low at 15, transferrin 189. This is a gentleman who has a history of alcohol abuse, has poor diet, most likely poor p.o. intake and nutrition. Some of his iron deficiency could be nutritional. He could also have mild gastritis. All labs were reviewed. Hemoglobin is now at 8.2 Fecal occult blood stool result: Plan: Cont empiric on Protonix, and p.o. iron. (8) Alcoholic cirrhosis of liver without ascites Impression: He has a history of alcohol abuse. AST was elevated, and he has associated thrombocytopenia. AST was 60 on admission. And ALT was normal at 31. His cirrhosis may be due to fatty liver. He denies current ongoing alcohol abuse. - Current Meds Current Meds: Current Medications Generic Name Dose Route Start Last Admin Trade Name Freq PRN Reason Stop Dose Admin Acetaminophen 650 mg 11/26/22 23:49 11/27/22 16:39 Acetaminophen 325 Mg Tablet PO 650 mg Q4HR PRN Administration Pain 1 to 4, or Fever Hydrocodone Bitart/Acetaminophen 1 tab 11/27/22 01:35 11/30/22 11:28 Hydrocod/Acetam 5/325 Mg Tablet PO 1 tab Q4HR PRN Administration Moderate Pain (Level 4-6) Atorvastatin Calcium 40 mg 11/26/22 23:45 11/29/22 21:09 Atorvastatin 10 Mg Tablet PO 40 mg HS CATIE Administration Calamine 1 applic 11/27/22 17:22 11/27/22 18:45 Calamine/Zinc Oxide 177 Ml Bottle TOP 1 applic PRN PRN Administration SKIN CARE Carvedilol 25 mg 11/27/22 01:00 11/30/22 08:34 Carvedilol 12.5 Mg Tablet PO 25 mg BID CATIE Administration Diphenhydramine HCl 25 mg 11/27/22 22:20 11/27/22 22:33 Diphenhydramine 25 Mg Capsule PO 25 mg Q4HR PRN Administration Allergy Symptoms Docusate Sodium 250 - 500 mg 11/30/22 09:00 11/30/22 08:35 Docusate Sodium 250 Mg Capsule PO Not Given DAILY CATIE Duloxetine HCl 60 mg 11/26/22 23:41 11/29/22 21:11 Duloxetine 60 Mg Capsule PO 60 mg HS CATIE Administration Ferrous Gluconate 324 mg 11/28/22 08:00 11/30/22 08:34 Ferrous Gluconate 324 Mg Tablet PO 324 mg DAILYWM CATIE Administration Gabapentin 300 mg 11/27/22 01:00 11/30/22 06:52 Gabapentin 300 Mg Capsule PO 300 mg TID CATIE Administration Ampicillin Sodium/Sulbactam 100 mls @ 200 mls/hr 11/28/22 12:00 11/30/22 12:07 Sodium 3 gm/ Sodium Chloride IV 200 mls/hr Q12H CATIE Administration Insulin Human Lispro 1 - 9 unit 11/27/22 08:00 11/30/22 12:07 Insulin Lispro 300 Unit/3 Ml Pen SUBQ 1 unit 0800,1200,1700,2100 CATIE Administration Protocol Insulin Human Lispro 2 unit 11/28/22 17:00 11/30/22 12:08 Insulin Lispro 300 Unit/3 Ml Pen SUBQ 2 unit TIDWM CATIE Administration Protocol Lidocaine 1 patch 11/27/22 09:00 11/30/22 08:34 Lidocaine Patch 5% TOP 1 patch DAILY CATIE Administration Loratadine 10 mg 11/27/22 09:00 11/30/22 08:34 Loratadine 10 Mg Tablet PO 10 mg DAILY CATIE Administration Multi-Ingredient Ointment 1 applic 11/27/22 01:57 11/29/22 21:48 Zinc Oxide 20% Oint 30 Gm Tube TOP 1 applic PRN PRN Administration Skin Care Nystatin 1 applic 11/27/22 12:00 11/30/22 08:35 Nystatin Cream 15 Gm Tube TOP 1 applic BID CATIE Administration Oxycodone HCl 5 mg 11/28/22 10:14 11/30/22 06:24 Oxycodone 5 Mg Tablet PO 5 mg Q6H PRN Administration Moderate Pain (Level 4-6) Pantoprazole Sodium 40 mg 11/27/22 18:00 11/30/22 06:52 Pantoprazole 40 Mg Tablet PO 40 mg QDAC CATIE Administration Polyethylene Glycol 17 gm 11/29/22 13:00 11/30/22 08:35 Polyethylene Glycol 3350 17 Gm Packet PO Not Given DAILY CATIE Prochlorperazine Edisylate 10 mg 11/26/22 23:49 11/28/22 17:32 Prochlorperazine 10 Mg/2 Ml Vial IVP 10 mg Q6HR PRN Administration Nausea / Vomiting Senna 8.6 - 17.2 mg 11/30/22 09:00 11/30/22 08:36 Senna 8.6 Mg Tablet PO Not Given DAILY [facility] Sodium Chloride 10 ml 11/27/22 01:00 11/30/22 08:36 Sodium Chloride Flush 0.9% 10 Ml Syringe IVP 10 ml 0100,0900,1700 CATIE Administration Tamsulosin HCl 0.4 mg 11/27/22 09:00 11/30/22 08:34 Tamsulosin 0.4 Mg Capsule PO 0.4 mg DAILY CATIE Administration - Lab Result Fish Bone Diagrams: 11/30/22 05:02 11/30/22 05:02 - Additional Planning My Orders: My Active Orders 11/30/22 21:00 Insulin Glargine-Yfgn [Semglee] 5 unit SUBQ BID Subjective - Subjective Patient Reports: Feeling Better Objective Vital Signs: Vital Signs - 24 hr 11/29/22 11/29/22 11/30/22 15:37 23:47 07:40 Temperature 36.7 C 36.5 C 36.3 C L Heart Rate [ 69 70 69 Brachial] Respiratory 20 20 16 Rate Blood Pressure 127/61 128/61 [Left Brachial artery] Blood Pressure 138/61 H [Right Brachial artery] O2 Saturation 95 96 96 Oxygen O2 Source Room air I&O (Last 24 Hrs): Intake and Output Totals x24h 11/28/22 11/29/22 11/30/22 23:59 23:59 23:59 Intake Total 5168.751 4605.833 272.083 Output Total 2650 3200 975 Balance 2518.751 1405.833 -702.917 General: Other ([place]) HEENT: Mucous membr. moist/pink Neck: Other (Cannot evaluate JVD due to obesity) Neuro: Non Focal Cardiovascular: Regular rate, Other (Distant heart sounds due to obesity) Respiratory: No respiratory distress, Breath sounds nml Abdomen: Soft, Other (Obese with a pannus) Genitourinary: Other (Mahan in place) Extremities: Other (Right BKA, left has 1+ edema, hands have edema) - Results Results: Laboratory Results WBC 5.0 x10^3/uL (4.8-10.8) 11/30/22 05:02 RBC 2.97 10^6/uL (4.70-6.10) L 11/30/22 05:02 Hgb 8.2 g/dL (14.0-18.0) L 11/30/22 05:02 Hct 25.8 % (42.0-52.0) L 11/30/22 05:02 MCV 86.9 fL (80.0-94.0) 11/30/22 05:02 MCH 27.6 pg (27.0-31.0) 11/30/22 05:02 MCHC 31.8 g/dL (32.0-36.0) L 11/30/22 05:02 RDW 13.2 % (12.0-15.0) 11/30/22 05:02 Plt Count 69 10^3/uL (130-450) L 11/30/22 05:02 MPV 10.7 fL (7.4-11.4) 11/30/22 05:02 Neut # (Auto) 3.1 10^3/uL (1.5-6.6) 11/30/22 05:02 Lymph # (Auto) 1.0 10^3/uL (1.5-3.5) L 11/30/22 05:02 [place] # (Auto) 0.6 10^3/uL (0.0-1.0) 11/30/22 05:02 Eos # (Auto) 0.2 10^3/uL (0.0-0.7) 11/30/22 05:02 Baso # (Auto) 0.0 10^3/uL (0.0-0.1) 11/30/22 05:02 Absolute Nucleated RBC 0.00 x10^3/uL 11/30/22 05:02 Nucleated RBC % 0.0 /100WBC 11/30/22 05:02 PT 11.8 secs (9.9-12.6) 11/28/22 05:05 INR 1.1 (0.8-1.2) 11/28/22 05:05 Sodium 130 mmol/L (135-145) L 11/30/22 05:02 Potassium 4.1 mmol/L (3.5-4.5) 11/30/22 05:02 Chloride 105 mmol/L (101-111) 11/30/22 05:02 Carbon Dioxide 17 mmol/L (21-32) L 11/30/22 05:02 Anion Gap 8.0 (6-13) 11/30/22 05:02 BUN 59 mg/dL (6-20) H 11/30/22 05:02 Creatinine 2.8 mg/dL (0.6-1.3) H 11/30/22 05:02 Estimated GFR (MDRD) 22 (>89) L 11/30/22 05:02 Glucose 160 mg/dL (74-104) H 11/30/22 05:02 POC Whole Bld Glucose 173 mg/dL (70 - 100) H 11/30/22 11:27 Estimat Average Glucose 177 mg/dL (70-100) H 11/28/22 05:05 Hemoglobin A1c % 7.8 % (4.27-6.07) H 11/28/22 05:05 Lactic Acid 1.3 mmol/L (0.5-2.2) 11/26/22 19:40 Calcium 8.0 mg/dL (8.5-10.3) L 11/30/22 05:02 Iron 15 ug/dL (50-212) L 11/27/22 05:00 TIBC 265 ug/dL (250-450) 11/27/22 05:00 % Saturation 6 % (20-50) L 11/27/22 05:00 Transferrin 189 mg/dL (203-362) L 11/27/22 05:00 Total Bilirubin 0.5 mg/dL (0.2-1.0) 11/28/22 05:05 Direct Bilirubin 0.16 mg/dL (0.03-0.18) 11/28/22 05:05 AST 151 IU/L (10-42) H 11/28/22 05:05 ALT 50 IU/L (10-60) 11/28/22 05:05 Alkaline Phosphatase 84 IU/L (42-121) 11/28/22 05:05 Total Creatine Kinase 1234 IU/L (30-223) H* 11/30/22 05:02 Total Protein 6.0 g/dL (6.4-8.9) L 11/28/22 05:05 Albumin 2.6 g/dL (3.2-5.5) L 11/28/22 05:05 Globulin 3.4 g/dL (2.1-4.2) 11/28/22 05:05 Albumin/Globulin Ratio 0.8 (1.0-2.2) L 11/26/22 19:40 Vitamin B12 746 pg/mL (180-914) 11/27/22 05:00 Folate > 44.6 ng/mL (5.90 - >24.8) 11/27/22 05:00 Urine Color YELLOW 11/26/22 19:50 Urine Clarity HAZY (CLEAR) 11/26/22 19:50 Urine pH 5.5 PH (5.0-7.5) 11/26/22 19:50 Ur Specific [place] 1.020 (1.002-1.030) 11/26/22 19:50 Urine Protein >=300 mg/dL (NEGATIVE) H 11/26/22 19:50 Urine Glucose (UA) NEGATIVE mg/dL (NEGATIVE) 11/26/22 19:50 Urine Ketones NEGATIVE mg/dL (NEGATIVE) 11/26/22 19:50 Urine Occult Blood LARGE (NEGATIVE) H 11/26/22 19:50 Urine Nitrite NEGATIVE (NEGATIVE) 11/26/22 19:50 Urine Bilirubin NEGATIVE (NEGATIVE) 11/26/22 19:50 Urine Urobilinogen 1 (NORMAL) E.U./dL (NORMAL) 11/26/22 19:50 Ur Leukocyte Esterase LARGE (NEGATIVE) H 11/26/22 19:50 Urine RBC 11-25 /HPF (0-5) H 11/26/22 19:50 Urine WBC >25 /HPF (0-3) H 11/26/22 19:50 Ur Squamous Epith Cells NONE SEEN (<= Few) 11/26/22 19:50 Urine Bacteria Moderate /HPF (None Seen) H 11/26/22 19:50 Urine Culture Comments INDICATED 11/26/22 19:50 Nasal Adenovirus (PCR) NOT DETECTED 11/26/22 19:35 Nasal B. parapertussis DNA (PCR) NOT DETECTED 11/26/22 19:35 Nasal Coronavir 229E PCR NOT DETECTED 11/26/22 19:35 Nasal Coronavir HKU1 PCR NOT DETECTED 11/26/22 19:35 Nasal Coronavir NL63 PCR NOT DETECTED 11/26/22 19:35 Nasal Coronavir OC43 PCR NOT DETECTED 11/26/22 19:35 Nasal Enterovir/Rhinovir PCR NOT DETECTED 11/26/22 19:35 Nasal Influenza B PCR NOT DETECTED 11/26/22 19:35 Nasal Influenza A PCR NOT DETECTED 11/26/22 19:35 Nasal Parainfluen 1 PCR NOT DETECTED 11/26/22 19:35 Nasal Parainfluen 2 PCR NOT DETECTED 11/26/22 19:35 Nasal Parainfluen 3 PCR NOT DETECTED 11/26/22 19:35 Nasal Parainfluen 4 PCR NOT DETECTED 11/26/22 19:35 Nasal RSV (PCR) NOT DETECTED 11/26/22 19:35 Nasal B.pertussis DNA PCR NOT DETECTED 11/26/22 19:35 Nasal C.pneumoniae (PCR) NOT DETECTED 11/26/22 19:35 [place] Human Metapneumo PCR NOT DETECTED 11/26/22 19:35 Nasal M.pneumoniae (PCR) NOT DETECTED 11/26/22 19:35 Nasal SARS-CoV-2 (PCR) NOT DETECTED 11/26/22 19:35 Stl Occult Blood (IFOB) POSITIVE (NEGATIVE) A 11/29/22 18:30 - Procedures Procedures: Procedures DETACHMENT AT RIGHT LOWER LEG, HIGH, OPEN APPROACH (08/18/17) INSERTION OF INFUSION DEV INTO SUP VENA CAVA, PERC APPROACH (10/03/20) TRANSFUSE NONAUT RED BLOOD CELLS IN PERIPH VEIN, PERC (08/18/17)
--- NOTE | 2022-11-30 14:00 | ANESTHESIA PROCEDURE NOTE ---
Anesth Central Line Template - Central Line Central Line Preparation: Consent Obtained Central line location: Left [place] Central line type: PICC Single Lumen Central line catheter tip site resides: [place], right Central line aftercare: Secured, Placement confirmed, No pneumothorax, No complications, Bundle checklist complete, Pt tolerated well
--- NOTE | 2022-11-30 14:22 | XRAY Report ---
PROCEDURE: Chest for Line Placement INDICATIONS: picc line TECHNIQUE: One view of the chest was acquired. COMPARISON: Chest x-ray 11/26/2022 FINDINGS: Surgical changes and devices: Left PICC line is present with distal tip projecting over the proximal SVC. Lungs and pleura: No pleural effusions or pneumothorax. Mild increased pulmonary vascularity. Mediastinum: Mediastinal contours appear normal. Heart size is enlarged. Bones and chest wall: No suspicious bony lesions. Overlying soft tissues appear unremarkable. IMPRESSION: Mild increased vascular suggestive of edema. PICC line as above. Reviewed by: Anabelle Baker MD on 11/30/2022 2:21 PM PDT Approved by: Anabelle Baker MD on 11/30/2022 2:21 PM PDT Station ID: [id number]
[2022-11-30] MEDS: ZINC OXIDE 20% OINT 30 GM TUBE TOP PRN (17:29)
[2022-11-30] MEDS: ATORVASTATIN 10 MG TABLET PO SCH (21:33)
[2022-11-30] MEDS: DULoxetine 60 MG CAPSULE PO SCH (21:34)
[2022-11-30] MEDS: INSULIN GLARGINE-YFGN 300 UNIT/3 ML PEN SUBQ SCH (21:38)
[2022-12-01] MEDS: AMPICILLIN/SULBACTAM 3 GM in SODIUM CHLORIDE 0.9% MINIBAG 100 ML IV SCH ×3 (00:02→23:47)
[2022-12-01] MEDS: SODIUM CHLORIDE FLUSH 0.9% 10 ML SYRINGE IVP SCH ×4 (00:03→23:47)
[2022-12-01] MEDS: HYDROcod/ACETAM 5/325 MG TABLET PO PRN ×2 (02:52→08:02)
[2022-12-01] MEDS: GABAPENTIN 300 MG CAPSULE PO SCH ×3 (05:50→21:43)
[2022-12-01] MEDS: PANTOPRAZOLE 40 MG TABLET PO SCH (05:50)
[2022-12-01 06:07] LABS: BASOPHILS % (AUTO) 0.5 %; EOSINOPHILS # (AUTO) 0.3 10^3/uL (0.0-0.7); EOSINOPHILS % (AUTO) 4.2 %; HCT - HEMATOCRIT 25.6 % (42.0-52.0); HGB - HEMOGLOBIN 8.2 g/dL (14.0-18.0); LYMPHOCYTES # (AUTO) 1.1 10^3/uL (1.5-3.5); LYMPHOCYTES % (AUTO) 17.5 %; MEAN CORPUSCULAR HEMOGLOBIN 28.1 pg (27.0-31.0); MEAN CORPUSCULAR VOLUME 87.7 fL (80.0-94.0); MEAN PLATELET VOLUME 9.7 fL (7.4-11.4); MONOCYTES # (AUTO) 0.6 10^3/uL (0.0-1.0); MONOCYTES % (AUTO) 10.5 %; NEUTROPHILS # (AUTO) 3.9 10^3/uL (1.5-6.6); NEUTROPHILS % (AUTO) 65.1 %; PLT - PLATELET COUNT 73 10^3/uL (130-450); RED BLOOD COUNT 2.92 10^6/uL (4.70-6.10); RED CELL DISTRIBUTION WIDTH 13.3 % (12.0-15.0)
[2022-12-01 06:20] LABS: CALCIUM 8.2 mg/dL (8.5-10.3); CREATININE 2.5 mg/dL (0.6-1.3)
[2022-12-01] MEDS: FERROUS GLUCONATE 324 MG TABLET PO SCH (08:01)
[2022-12-01] MEDS: DOCUSATE SODIUM 250 MG CAPSULE PO SCH (08:01)
[2022-12-01] MEDS: carvediloL 12.5 MG TABLET PO SCH ×2 (08:02→21:43)
[2022-12-01] MEDS: TAMSULOSIN 0.4 MG CAPSULE PO SCH (08:02)
[2022-12-01] MEDS: LORATADINE 10 MG TABLET PO SCH (08:02)
[2022-12-01] MEDS: INSULIN LISPRO 300 UNIT/3 ML PEN SUBQ SCH ×7 (08:03→21:45)
[2022-12-01] MEDS: INSULIN GLARGINE-YFGN 300 UNIT/3 ML PEN SUBQ SCH ×2 (08:04→21:44)
[2022-12-01] MEDS: LIDOCAINE PATCH 5% TOP SCH (08:05)
[2022-12-01] MEDS: NYSTATIN CREAM 15 GM TUBE TOP SCH ×2 (08:06→21:45)
[2022-12-01] MEDS: polyethylene glycoL 3350 17 GM PACKET PO SCH (08:06)
[2022-12-01] MEDS: SENNA 8.6 MG TABLET PO SCH (08:06)
[2022-12-01] MEDS: ACETAMINOPHEN 325 MG TABLET PO PRN (14:31)
[2022-12-01] MEDS: oxyCODONE 5 MG TABLET PO PRN (14:32)
--- NOTE | 2022-12-01 15:35 | PROVIDER PROGRESS NOTE ---
Assessment/Plan - Problem List (1) Bacteremia due to Streptococcus Assessment/Plan: Repeat culture collected on 11/28/2022, no growth to date The 11/26 blood culture growing Strep mitis sensitivity reports sensitive to ampicillin, resistant to clindamycin. De-escalated patient to using Unasyn only. PICC line insertion was done yesterday 11/30 Plan: He will need total 14 days of antibiotics after clearance of bacteremia, therefore from the 11/28 blood cx date. Hopefully he will receive the iv antibx at a SNF. I explained all that to him today. We are awaiting an Echocardiogram to rule out endocarditis. I do not hear a murmur but he has obesity and a murmur may be present. If he has a vegetation, he would need 4 to 6 weeks of IV antibiotics. (We have no cmm technician here today, which is Sat, not until Saturday through of next week). (2) Enterococcus UTI Assessment/Plan: On Unasyn, continue and plan as above (3) Acute urinary retention Assessment/Plan: He has a large prostate and had pelvic pain and urinary retention. Mahan was placed and he wants it left in Plan: Continue with a Mahan He will need outpatient urology management (4) Acute on chronic kidney failure Qualifiers: Acute renal failure type: unspecified Chronic kidney disease stage: stage 3 (moderate) Assessment/Plan: Secondary to rhabdo IV fluids were stopped 11/29 Plan: Cont monitoring creatinine level (5) Rhabdomyolysis Qualifiers: Qualified Code(s): M62.82 - Rhabdomyolysis Assessment/Plan: He fell at home and laid there for prolonged period of time CK level trending down daily (all labs were reviewed), even after IV fluids were stopped 11/29 Plan: PT is seeing him regarding the fall. The patient refuses to live in a long-term usp. I asked him who will help him at home since he has been bedbound for the last 2 days and he said he does not know. I asked him to start thinking about that going forward. Will need SW input. (6) DM Type 2 Assessment/Plan: He was taking Lantus 100 units in a.m. and 15 units in p.m. at home, A1c came back at 7.8 Plan: Continue with sliding scale insulin and nutrition coverage Cont the new Lantus (Semglee) 5 units sq BID (7) Chronic anemia Impression: He is chronically anemic at 9.0-9.7. B12 was normal at 746. Folate was greater than 44.6. Iron is low at 15, transferrin 189. This is a gentleman who has a history of alcohol abuse, has poor diet, most likely poor p.o. intake and nutrition. Some of his iron deficiency could be nutritional. He could also have mild gastritis. All labs were reviewed. Hemoglobin is now at 8.2 Fecal occult blood stool result: Plan: Cont empiric on Protonix, and p.o. iron. (8) Alcoholic cirrhosis of liver without ascites Impression: He has a history of alcohol abuse. AST was elevated, and he has associated thrombocytopenia. AST was 60 on admission. And ALT was normal at 31. His cirrhosis may be due to fatty liver. He denied current ongoing alcohol abuse. - Current Meds Current Meds: Current Medications Generic Name Dose Route Start Last Admin Trade Name Freq PRN Reason Stop Dose Admin Acetaminophen 650 mg 11/26/22 23:49 12/01/22 14:31 Acetaminophen 325 Mg Tablet PO 650 mg Q4HR PRN Administration Pain 1 to 4, or Fever Hydrocodone Bitart/Acetaminophen 1 tab 11/27/22 01:35 12/01/22 08:02 Hydrocod/Acetam 5/325 Mg Tablet PO 1 tab Q4HR PRN Administration Moderate Pain (Level 4-6) Atorvastatin Calcium 40 mg 11/26/22 23:45 11/30/22 21:33 Atorvastatin 10 Mg Tablet PO 40 mg HS CATIE Administration Calamine 1 applic 11/27/22 17:22 11/27/22 18:45 Calamine/Zinc Oxide 177 Ml Bottle TOP 1 applic PRN PRN Administration SKIN CARE Carvedilol 25 mg 11/27/22 01:00 12/01/22 08:02 Carvedilol 12.5 Mg Tablet PO 25 mg BID CATIE Administration Diphenhydramine HCl 25 mg 11/27/22 22:20 11/27/22 22:33 Diphenhydramine 25 Mg Capsule PO 25 mg Q4HR PRN Administration Allergy Symptoms Docusate Sodium 250 - 500 mg 11/30/22 09:00 12/01/22 08:01 Docusate Sodium 250 Mg Capsule PO 250 mg DAILY CATIE Administration Duloxetine HCl 60 mg 11/26/22 23:41 11/30/22 21:34 Duloxetine 60 Mg Capsule PO 60 mg HS CATIE Administration Ferrous Gluconate 324 mg 11/28/22 08:00 12/01/22 08:01 Ferrous Gluconate 324 Mg Tablet PO 324 mg DAILYWM CATIE Administration Gabapentin 300 mg 11/27/22 01:00 12/01/22 14:16 Gabapentin 300 Mg Capsule PO 300 mg TID CATIE Administration Ampicillin Sodium/Sulbactam 100 mls @ 200 mls/hr 11/28/22 12:00 12/01/22 12:54 Sodium 3 gm/ Sodium Chloride IV Infused Q12H CATIE Infusion Insulin Glargine-yfgn 5 unit 11/30/22 21:00 12/01/22 08:04 Insulin Glargine-Yfgn 300 Unit/3 Ml Pen SUBQ 5 unit BID CATIE Administration Insulin Human Lispro 1 - 9 unit 11/27/22 08:00 12/01/22 11:53 Insulin Lispro 300 Unit/3 Ml Pen SUBQ 1 unit 0800,1200,1700,2100 CATIE Administration Protocol Insulin Human Lispro 2 unit 11/28/22 17:00 12/01/22 11:54 Insulin Lispro 300 Unit/3 Ml Pen SUBQ 2 unit TIDWM [facility] Administration Protocol Lidocaine 1 patch 11/27/22 09:00 12/01/22 08:05 Lidocaine Patch 5% TOP 1 patch DAILY CATIE Administration Loratadine 10 mg 11/27/22 09:00 12/01/22 08:02 Loratadine 10 Mg Tablet PO 10 mg DAILY CATIE Administration Multi-Ingredient Ointment 1 applic 11/27/22 01:57 11/30/22 17:29 Zinc Oxide 20% Oint 30 Gm Tube TOP 1 applic PRN PRN Administration Skin Care Nystatin 1 applic 11/27/22 12:00 12/01/22 08:06 Nystatin Cream 15 Gm Tube TOP 1 applic BID CATIE Administration Oxycodone HCl 5 mg 11/28/22 10:14 12/01/22 14:32 Oxycodone 5 Mg Tablet PO 5 mg Q6H PRN Administration Moderate Pain (Level 4-6) Pantoprazole Sodium 40 mg 11/27/22 18:00 12/01/22 05:50 Pantoprazole 40 Mg Tablet PO 40 mg QDAC CATIE Administration Polyethylene Glycol 17 gm 11/29/22 13:00 12/01/22 08:06 Polyethylene Glycol 3350 17 Gm Packet PO Not Given DAILY [facility] Prochlorperazine Edisylate 10 mg 11/26/22 23:49 11/28/22 17:32 Prochlorperazine 10 Mg/2 Ml Vial IVP 10 mg Q6HR PRN Administration Nausea / Vomiting Senna 8.6 - 17.2 mg 11/30/22 09:00 12/01/22 08:06 Senna 8.6 Mg Tablet PO Not Given DAILY [facility] Sodium Chloride 10 ml 11/27/22 01:00 12/01/22 08:05 Sodium Chloride Flush 0.9% 10 Ml Syringe IVP 10 ml 0100,0900,1700 CATIE Administration Tamsulosin HCl 0.4 mg 11/27/22 09:00 12/01/22 08:02 Tamsulosin 0.4 Mg Capsule PO 0.4 mg DAILY CATIE Administration - Lab Result Fish Bone Diagrams: 12/01/22 05:50 12/01/22 05:50 - Additional Planning My Orders: My Active Orders 11/30/22 21:00 Insulin Glargine-Yfgn [Semglee] 5 unit SUBQ BID 12/04/22 07:00 Echo Transthoracic Complete [ECHO] Routine Subjective - Subjective Patient Reports: Other (Complains of low back pain and claims it is "from his kidney". Has not been OOB in several days because sitting up in chair hurt his lower back) Objective Vital Signs: Vital Signs - 24 hr 11/30/22 12/01/22 12/01/22 16:00 00:00 08:00 Temperature 36.6 C 36.5 C 36.5 C Heart Rate [ 63 67 72 Brachial] Respiratory 20 20 18 Rate Blood Pressure 128/66 142/67 H 160/79 H [Right Brachial artery] O2 Saturation 93 94 95 Oxygen O2 Source Room air I&O (Last 24 Hrs): Intake and Output Totals x24h 11/29/22 11/30/22 12/01/22 23:59 23:59 23:59 Intake Total 4605.833 9633.991 3146 Output Total 3200 2925 2300 Balance 1405.833 -1512.917 -1140 General: Alert, Oriented x3, Other (Male pattern baldness) HEENT: Mucous membr. moist/pink Neck: Supple Neuro: Alert, Non Focal Cardiovascular: Regular rate, No murmurs Respiratory: No respiratory distress, Breath sounds nml Abdomen: Normal bowel sounds, Soft, No tenderness, Other (Obese, cannot R/O hepatomegaly) Extremities: Other (Right BKA, 1+ edema. Left leg venous stasis changes of vera with 1+ edema) - Results Results: Laboratory Results WBC 6.0 x10^3/uL (4.8-10.8) 12/01/22 05:50 RBC 2.92 10^6/uL (4.70-6.10) L 12/01/22 05:50 Hgb 8.2 g/dL (14.0-18.0) L 12/01/22 05:50 Hct 25.6 % (42.0-52.0) L 12/01/22 05:50 MCV 87.7 fL (80.0-94.0) 12/01/22 05:50 MCH 28.1 pg (27.0-31.0) 12/01/22 05:50 MCHC 32.0 g/dL (32.0-36.0) 12/01/22 05:50 RDW 13.3 % (12.0-15.0) 12/01/22 05:50 Plt Count 73 10^3/uL (130-450) L 12/01/22 05:50 MPV 9.7 fL (7.4-11.4) 12/01/22 05:50 Neut # (Auto) 3.9 10^3/uL (1.5-6.6) 12/01/22 05:50 Lymph # (Auto) 1.1 10^3/uL (1.5-3.5) L 12/01/22 05:50 Ward # (Auto) 0.6 10^3/uL (0.0-1.0) 12/01/22 05:50 Eos # (Auto) 0.3 10^3/uL (0.0-0.7) 12/01/22 05:50 Baso # (Auto) 0.0 10^3/uL (0.0-0.1) 12/01/22 05:50 Absolute Nucleated RBC 0.00 x10^3/uL 12/01/22 05:50 Nucleated RBC % 0.0 /100WBC 12/01/22 05:50 PT 11.8 secs (9.9-12.6) 11/28/22 05:05 INR 1.1 (0.8-1.2) 11/28/22 05:05 Sodium 132 mmol/L (135-145) L 12/01/22 05:50 Potassium 4.0 mmol/L (3.5-4.5) 12/01/22 05:50 Chloride 107 mmol/L (101-111) 12/01/22 05:50 Carbon Dioxide 20 mmol/L (21-32) L 12/01/22 05:50 Anion Gap 5.0 (6-13) L 12/01/22 05:50 BUN 56 mg/dL (6-20) H 12/01/22 05:50 Creatinine 2.5 mg/dL (0.6-1.3) H 12/01/22 05:50 Estimated GFR (MDRD) 25 (>89) L 12/01/22 05:50 Glucose 156 mg/dL (74-104) H 12/01/22 05:50 POC Whole Bld Glucose 154 mg/dL (70 - 100) H 12/01/22 11:14 Estimat Average Glucose 177 mg/dL (70-100) H 11/28/22 05:05 Hemoglobin A1c % 7.8 % (4.27-6.07) H 11/28/22 05:05 Lactic Acid 1.3 mmol/L (0.5-2.2) 11/26/22 19:40 Calcium 8.2 mg/dL (8.5-10.3) L 12/01/22 05:50 Iron 15 ug/dL (50-212) L 11/27/22 05:00 TIBC 265 ug/dL (250-450) 11/27/22 05:00 % Saturation 6 % (20-50) L 11/27/22 05:00 Transferrin 189 mg/dL (203-362) L 11/27/22 05:00 Total Bilirubin 0.5 mg/dL (0.2-1.0) 11/28/22 05:05 Direct Bilirubin 0.16 mg/dL (0.03-0.18) 11/28/22 05:05 AST 151 IU/L (10-42) H 11/28/22 05:05 ALT 50 IU/L (10-60) 11/28/22 05:05 Alkaline Phosphatase 84 IU/L (42-121) 11/28/22 05:05 Total Creatine Kinase 701 IU/L (30-223) H 12/01/22 05:50 Total Protein 6.0 g/dL (6.4-8.9) L 11/28/22 05:05 Albumin 2.6 g/dL (3.2-5.5) L 11/28/22 05:05 Globulin 3.4 g/dL (2.1-4.2) 11/28/22 05:05 Albumin/Globulin Ratio 0.8 (1.0-2.2) L 11/26/22 19:40 Vitamin B12 746 pg/mL (180-914) 11/27/22 05:00 Folate > 44.6 ng/mL (5.90 - >24.8) 11/27/22 05:00 Urine Color YELLOW 11/26/22 19:50 Urine Clarity HAZY (CLEAR) 11/26/22 19:50 Urine pH 5.5 PH (5.0-7.5) 11/26/22 19:50 Ur Specific [place] 1.020 (1.002-1.030) 11/26/22 19:50 Urine Protein >=300 mg/dL (NEGATIVE) H 11/26/22 19:50 Urine Glucose (UA) NEGATIVE mg/dL (NEGATIVE) 11/26/22 19:50 Urine Ketones NEGATIVE mg/dL (NEGATIVE) 11/26/22 19:50 Urine Occult Blood LARGE (NEGATIVE) H 11/26/22 19:50 Urine Nitrite NEGATIVE (NEGATIVE) 11/26/22 19:50 Urine Bilirubin NEGATIVE (NEGATIVE) 11/26/22 19:50 Urine Urobilinogen 1 (NORMAL) E.U./dL (NORMAL) 11/26/22 19:50 Ur Leukocyte Esterase LARGE (NEGATIVE) H 11/26/22 19:50 Urine RBC 11-25 /HPF (0-5) H 11/26/22 19:50 Urine WBC >25 /HPF (0-3) H 11/26/22 19:50 Ur Squamous Epith Cells NONE SEEN (<= Few) 11/26/22 19:50 Urine Bacteria Moderate /HPF (None Seen) H 11/26/22 19:50 Urine Culture Comments INDICATED 11/26/22 19:50 Nasal Adenovirus (PCR) NOT DETECTED 11/26/22 19:35 Nasal B. parapertussis DNA (PCR) NOT DETECTED 11/26/22 19:35 Nasal Coronavir 229E PCR NOT DETECTED 11/26/22 19:35 Nasal Coronavir HKU1 PCR NOT DETECTED 11/26/22 19:35 Nasal Coronavir NL63 PCR NOT DETECTED 11/26/22 19:35 Nasal Coronavir OC43 PCR NOT DETECTED 11/26/22 19:35 Nasal Enterovir/Rhinovir PCR NOT DETECTED 11/26/22 19:35 Nasal Influenza B PCR NOT DETECTED 11/26/22 19:35 Nasal Influenza A PCR NOT DETECTED 11/26/22 19:35 Nasal Parainfluen 1 PCR NOT DETECTED 11/26/22 19:35 Nasal Parainfluen 2 PCR NOT DETECTED 11/26/22 19:35 Nasal Parainfluen 3 PCR NOT DETECTED 11/26/22 19:35 Nasal Parainfluen 4 PCR NOT DETECTED 11/26/22 19:35 Nasal RSV (PCR) NOT DETECTED 11/26/22 19:35 Nasal B.pertussis DNA PCR NOT DETECTED 11/26/22 19:35 Nasal C.pneumoniae (PCR) NOT DETECTED 11/26/22 19:35 Tyler Human Metapneumo PCR NOT DETECTED 11/26/22 19:35 Nasal M.pneumoniae (PCR) NOT DETECTED 11/26/22 19:35 Nasal SARS-CoV-2 (PCR) NOT DETECTED 11/26/22 19:35 Stl Occult Blood (IFOB) POSITIVE (NEGATIVE) A 11/29/22 18:30 - Procedures Procedures: Procedures DETACHMENT AT RIGHT LOWER LEG, HIGH, OPEN APPROACH (08/18/17) INSERTION OF INFUSION DEV INTO SUP VENA CAVA, PERC APPROACH (10/03/20) TRANSFUSE NONAUT RED BLOOD CELLS IN PERIPH VEIN, PERC (08/18/17)
[2022-12-01] MEDS: ATORVASTATIN 10 MG TABLET PO SCH (21:43)
[2022-12-01] MEDS: DULoxetine 60 MG CAPSULE PO SCH (21:54)
[2022-12-02] MEDS: HYDROcod/ACETAM 5/325 MG TABLET PO PRN ×2 (01:45→16:58)
[2022-12-02 05:11] LABS: BASOPHILS % (AUTO) 0.5 %; EOSINOPHILS # (AUTO) 0.3 10^3/uL (0.0-0.7); EOSINOPHILS % (AUTO) 4.3 %; HCT - HEMATOCRIT 26.4 % (42.0-52.0); HGB - HEMOGLOBIN 8.3 g/dL (14.0-18.0); LYMPHOCYTES # (AUTO) 1.1 10^3/uL (1.5-3.5); LYMPHOCYTES % (AUTO) 16.7 %; MEAN CORPUSCULAR HEMOGLOBIN 27.9 pg (27.0-31.0); MEAN CORPUSCULAR HGB CONC 31.4 g/dL (32.0-36.0); MEAN CORPUSCULAR VOLUME 88.6 fL (80.0-94.0); MEAN PLATELET VOLUME 9.9 fL (7.4-11.4); MONOCYTES # (AUTO) 0.7 10^3/uL (0.0-1.0); MONOCYTES % (AUTO) 10.5 %; NEUTROPHILS # (AUTO) 4.2 10^3/uL (1.5-6.6); NEUTROPHILS % (AUTO) 65.2 %; PLT - PLATELET COUNT 86 10^3/uL (130-450); RED BLOOD COUNT 2.98 10^6/uL (4.70-6.10); RED CELL DISTRIBUTION WIDTH 13.5 % (12.0-15.0); WHITE BLOOD COUNT 6.5 x10^3/uL (4.8-10.8)
[2022-12-02 05:29] LABS: CALCIUM 8.4 mg/dL (8.5-10.3); CREATININE 2.1 mg/dL (0.6-1.3); POTASSIUM 4.2 mmol/L (3.5-4.5)
[2022-12-02] MEDS: PANTOPRAZOLE 40 MG TABLET PO SCH (05:39)
[2022-12-02] MEDS: GABAPENTIN 300 MG CAPSULE PO SCH ×3 (05:39→21:04)
[2022-12-02] MEDS: TAMSULOSIN 0.4 MG CAPSULE PO SCH (09:11)
[2022-12-02] MEDS: DOCUSATE SODIUM 250 MG CAPSULE PO SCH (09:11)
[2022-12-02] MEDS: carvediloL 12.5 MG TABLET PO SCH ×2 (09:11→21:04)
[2022-12-02] MEDS: ACETAMINOPHEN 325 MG TABLET PO PRN ×2 (09:12→21:03)
[2022-12-02] MEDS: LORATADINE 10 MG TABLET PO SCH (09:12)
[2022-12-02] MEDS: FERROUS GLUCONATE 324 MG TABLET PO SCH (09:12)
[2022-12-02] MEDS: INSULIN LISPRO 300 UNIT/3 ML PEN SUBQ SCH ×7 (09:13→21:06)
[2022-12-02] MEDS: INSULIN GLARGINE-YFGN 300 UNIT/3 ML PEN SUBQ SCH ×2 (09:14→21:05)
[2022-12-02] MEDS: LIDOCAINE PATCH 5% TOP SCH (09:16)
[2022-12-02] MEDS: SENNA 8.6 MG TABLET PO SCH (09:16)
[2022-12-02] MEDS: polyethylene glycoL 3350 17 GM PACKET PO SCH (09:16)
[2022-12-02] MEDS: SODIUM CHLORIDE FLUSH 0.9% 10 ML SYRINGE IVP SCH ×2 (09:16→16:59)
[2022-12-02] MEDS: NYSTATIN CREAM 15 GM TUBE TOP SCH ×2 (09:16→21:06)
[2022-12-02] MEDS: oxyCODONE 5 MG TABLET PO PRN ×2 (09:17→21:03)
[2022-12-02] MEDS: CALAMINE/ZINC OXIDE 177 ML BOTTLE TOP PRN (09:19)
[2022-12-02] MEDS: diphenhydrAMINE 25 MG CAPSULE PO PRN (09:35)
[2022-12-02] MEDS: AMPICILLIN/SULBACTAM 3 GM in SODIUM CHLORIDE 0.9% MINIBAG 100 ML IV SCH (12:21)
--- NOTE | 2022-12-02 14:13 | PROVIDER PROGRESS NOTE ---
Assessment/Plan - Problem List (1) Bacteremia due to Streptococcus Assessment/Plan: The 11/26 blood culture growing Strep mitis sensitivity reports sensitive to ampicillin, resistant to clindamycin. De-escalated patient to using Unasyn only. Repeat culture collected on 11/28/2022, has no growth to date PICC line insertion was done yesterday 11/30 Plan: He will need total 14 days of antibiotics after clearance of bacteremia, therefore from the 11/28 blood cx date. Hopefully he will receive the iv antibx at a SNF. We are awaiting an Echocardiogram to rule out endocarditis. I do not hear a murmur but he has obesity and a murmur may be present. If he has a vegetation, he would need 4 to 6 weeks of IV antibiotics. (We have no process environmental technician here today, which is Sun, not until Saturday through of next week). (2) Enterococcus UTI Assessment/Plan: On Unasyn, continue antibx and plan as above (3) Acute urinary retention Assessment/Plan: He has a large prostate and had pelvic pain and urinary retention. Mahan was placed and he wants it left in Plan: Continue with this new Mahan and at discharge He will need outpatient urology management (4) Acute on chronic kidney failure Qualifiers: Acute renal failure type: unspecified Chronic kidney disease stage: stage 3 (moderate) Assessment/Plan: Secondary to rhabdo IV fluids were stopped 11/29 Plan: Cont monitoring creatinine level (5) Rhabdomyolysis Qualifiers: Qualified Code(s): M62.82 - Rhabdomyolysis Assessment/Plan: He fell at home and layed there for prolonged period of time CK level trended down daily (all labs were reviewed), even after IV fluids were stopped 11/29 Plan: PT is seeing him regarding the fall. The patient refused to live in a long-term prison. I asked him who will help him at home since he has been bedbound for the last several days and he said he does not know. I asked him to start thinking about that going forward. Will need SW input. (6) DM Type 2 Assessment/Plan: He was taking Lantus 100 units in a.m. and 15 units in p.m. at home, A1c came back at 7.8 Plan: Continue with sliding scale insulin and nutrition coverage Cont the new Lantus (Semglee) 5 units sq BID (7) Chronic anemia Impression: He is chronically anemic at 9.0-9.7. B12 was normal at 746. Folate was greater than 44.6. Iron is low at 15, transferrin 189. This is a gentleman who has a history of alcohol abuse, has poor diet, most likely poor p.o. intake and nutrition. Some of his iron deficiency could be nutritional. He could also have mild gastritis. All labs were reviewed. Hemoglobin is now at 8.2 Fecal occult blood stool result: Plan: Cont empiric on Protonix, and p.o. iron. (8) Alcoholic cirrhosis of liver without ascites Impression: He has a history of alcohol abuse. AST was elevated, and he has associated thrombocytopenia. AST was 60 on admission. And ALT was normal at 31. His cirrhosis may be due to fatty liver. He denied current ongoing alcohol abuse. - Current Meds Current Meds: Current Medications Generic Name Dose Route Start Last Admin Trade Name Freq PRN Reason Stop Dose Admin Acetaminophen 650 mg 11/26/22 23:49 12/02/22 09:12 Acetaminophen 325 Mg Tablet PO 650 mg Q4HR PRN Administration Pain 1 to 4, or Fever Hydrocodone Bitart/Acetaminophen 1 tab 11/27/22 01:35 12/02/22 01:45 Hydrocod/Acetam 5/325 Mg Tablet PO 1 tab Q4HR PRN Administration Moderate Pain (Level 4-6) Atorvastatin Calcium 40 mg 11/26/22 23:45 12/01/22 21:43 Atorvastatin 10 Mg Tablet PO 40 mg HS CATIE Administration Calamine 1 applic 11/27/22 17:22 12/02/22 09:19 Calamine/Zinc Oxide 177 Ml Bottle TOP 1 applic PRN PRN Administration SKIN CARE Carvedilol 25 mg 11/27/22 01:00 12/02/22 09:11 Carvedilol 12.5 Mg Tablet PO 25 mg BID CATIE Administration Diphenhydramine HCl 25 mg 11/27/22 22:20 12/02/22 09:35 Diphenhydramine 25 Mg Capsule PO 25 mg Q4HR PRN Administration Allergy Symptoms Docusate Sodium 250 - 500 mg 11/30/22 09:00 12/02/22 09:11 Docusate Sodium 250 Mg Capsule PO 250 mg DAILY CATIE Administration Duloxetine HCl 60 mg 11/26/22 23:41 12/01/22 21:54 Duloxetine 60 Mg Capsule PO 60 mg HS CATIE Administration Ferrous Gluconate 324 mg 11/28/22 08:00 12/02/22 09:12 Ferrous Gluconate 324 Mg Tablet PO 324 mg DAILYWM CATIE Administration Gabapentin 300 mg 11/27/22 01:00 12/02/22 14:02 Gabapentin 300 Mg Capsule PO 300 mg TID CATIE Administration Ampicillin Sodium/Sulbactam 100 mls @ 200 mls/hr 11/28/22 12:00 12/02/22 13:43 Sodium 3 gm/ Sodium Chloride IV Infused Q12H CATIE Infusion Insulin Glargine-yfgn 5 unit 11/30/22 21:00 12/02/22 09:14 Insulin Glargine-Yfgn 300 Unit/3 Ml Pen SUBQ 5 unit BID CATIE Administration Insulin Human Lispro 1 - 9 unit 11/27/22 08:00 12/02/22 12:21 Insulin Lispro 300 Unit/3 Ml Pen SUBQ 1 unit 0800,1200,1700,2100 CATIE Administration Protocol Insulin Human Lispro 2 unit 11/28/22 17:00 12/02/22 12:23 Insulin Lispro 300 Unit/3 Ml Pen SUBQ 2 unit TIDWM CATIE Administration Protocol Lidocaine 1 patch 11/27/22 09:00 12/02/22 09:16 Lidocaine Patch 5% TOP 1 patch DAILY CATEI Administration Loratadine 10 mg 11/27/22 09:00 12/02/22 09:12 Loratadine 10 Mg Tablet PO 10 mg DAILY CATIE Administration Multi-Ingredient Ointment 1 applic 11/27/22 01:57 11/30/22 17:29 Zinc Oxide 20% Oint 30 Gm Tube TOP 1 applic PRN PRN Administration Skin Care Nystatin 1 applic 11/27/22 12:00 12/02/22 09:16 Nystatin Cream 15 Gm Tube TOP 1 applic BID CATIE Administration Oxycodone HCl 5 mg 11/28/22 10:14 12/02/22 09:17 Oxycodone 5 Mg Tablet PO 5 mg Q6H PRN Administration Moderate Pain (Level 4-6) Pantoprazole Sodium 40 mg 11/27/22 18:00 12/02/22 05:39 Pantoprazole 40 Mg Tablet PO 40 mg QDAC CATIE Administration Polyethylene Glycol 17 gm 11/29/22 13:00 12/02/22 09:16 Polyethylene Glycol 3350 17 Gm Packet PO Not Given DAILY [facility] Prochlorperazine Edisylate 10 mg 11/26/22 23:49 11/28/22 17:32 Prochlorperazine 10 Mg/2 Ml Vial IVP 10 mg Q6HR PRN Administration Nausea / Vomiting Senna 8.6 - 17.2 mg 11/30/22 09:00 12/02/22 09:16 Senna 8.6 Mg Tablet PO Not Given DAILY [facility] Sodium Chloride 10 ml 11/27/22 01:00 12/02/22 09:16 Sodium Chloride Flush 0.9% 10 Ml Syringe IVP 10 ml 0100,0900,1700 CATIE Administration Tamsulosin HCl 0.4 mg 11/27/22 09:00 12/02/22 09:11 Tamsulosin 0.4 Mg Capsule PO 0.4 mg DAILY CATIE Administration - Lab Result Fish Bone Diagrams: 12/02/22 04:50 12/02/22 04:50 - Additional Planning My Orders: My Active Orders 12/04/22 07:00 Echo Transthoracic Complete [ECHO] Routine Subjective - Subjective Patient Reports: No Complaints (He is motivated to get OOB and work with PT today) Objective Vital Signs: Vital Signs - 24 hr 12/01/22 12/01/22 12/01/22 15:52 16:29 23:48 Temperature 36.7 C 36.6 C Heart Rate [ 68 72 Brachial] Respiratory 18 20 Rate Blood Pressure 168/70 H [Right Brachial artery] Blood Pressure 149/75 H 167/73 H [Right Radial artery] O2 Saturation 95 94 12/02/22 08:00 Temperature 36.5 C Heart Rate [ 71 Brachial] Respiratory 20 Rate Blood Pressure [Right Brachial artery] Blood Pressure 152/63 H [Right Radial artery] O2 Saturation 92 Oxygen O2 Source Room air I&O (Last 24 Hrs): Intake and Output Totals x24h 11/30/22 12/01/22 12/02/22 23:59 23:59 23:59 Intake Total 7747.171 8230 1370 Output Total 2925 3500 1775 Balance -1512.917 -1840 -405 General: Alert, Oriented x3 HEENT: Mucous membr. moist/pink Neck: Supple, No JVD Neuro: Alert, Non Focal Cardiovascular: Regular rate, No murmurs Respiratory: No respiratory distress, Breath sounds nml Abdomen: Normal bowel sounds, Soft, No tenderness, Other (Obese) Genitourinary: Other (Mahan in) Extremities: Other (Right arm has 1+ edema, especially around an old IV site in the upper arm. 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 Left leg has 1+ edema and venous stasis changes to his knee) - Results Results: Laboratory Results WBC 6.5 x10^3/uL (4.8-10.8) 12/02/22 04:50 RBC 2.98 10^6/uL (4.70-6.10) L 12/02/22 04:50 Hgb 8.3 g/dL (14.0-18.0) L 12/02/22 04:50 Hct 26.4 % (42.0-52.0) L 12/02/22 04:50 MCV 88.6 fL (80.0-94.0) 12/02/22 04:50 MCH 27.9 pg (27.0-31.0) 12/02/22 04:50 MCHC 31.4 g/dL (32.0-36.0) L 12/02/22 04:50 RDW 13.5 % (12.0-15.0) 12/02/22 04:50 Plt Count 86 10^3/uL (130-450) L 12/02/22 04:50 MPV 9.9 fL (7.4-11.4) 12/02/22 04:50 Neut # (Auto) 4.2 10^3/uL (1.5-6.6) 12/02/22 04:50 Lymph # (Auto) 1.1 10^3/uL (1.5-3.5) L 12/02/22 04:50 [place] # (Auto) 0.7 10^3/uL (0.0-1.0) 12/02/22 04:50 Eos # (Auto) 0.3 10^3/uL (0.0-0.7) 12/02/22 04:50 Baso # (Auto) 0.0 10^3/uL (0.0-0.1) 12/02/22 04:50 Absolute Nucleated RBC 0.00 x10^3/uL 12/02/22 04:50 Nucleated RBC % 0.0 /100WBC 12/02/22 04:50 PT 11.8 secs (9.9-12.6) 11/28/22 05:05 INR 1.1 (0.8-1.2) 11/28/22 05:05 Sodium 133 mmol/L (135-145) L 12/02/22 04:50 Potassium 4.2 mmol/L (3.5-4.5) 12/02/22 04:50 Chloride 109 mmol/L (101-111) 12/02/22 04:50 Carbon Dioxide 19 mmol/L (21-32) L 12/02/22 04:50 Anion Gap 5.0 (6-13) L 12/02/22 04:50 BUN 46 mg/dL (6-20) H 12/02/22 04:50 Creatinine 2.1 mg/dL (0.6-1.3) H 12/02/22 04:50 Estimated GFR (MDRD) 31 (>89) L 12/02/22 04:50 Glucose 168 mg/dL (74-104) H 12/02/22 04:50 POC Whole Bld Glucose 165 mg/dL (70 - 100) H 12/02/22 11:47 Estimat Average Glucose 177 mg/dL (70-100) H 11/28/22 05:05 Hemoglobin A1c % 7.8 % (4.27-6.07) H 11/28/22 05:05 Lactic Acid 1.3 mmol/L (0.5-2.2) 11/26/22 19:40 Calcium 8.4 mg/dL (8.5-10.3) L 12/02/22 04:50 Iron 15 ug/dL (50-212) L 11/27/22 05:00 TIBC 265 ug/dL (250-450) 11/27/22 05:00 % Saturation 6 % (20-50) L 11/27/22 05:00 Transferrin 189 mg/dL (203-362) L 11/27/22 05:00 Total Bilirubin 0.5 mg/dL (0.2-1.0) 11/28/22 05:05 Direct Bilirubin 0.16 mg/dL (0.03-0.18) 11/28/22 05:05 AST 151 IU/L (10-42) H 11/28/22 05:05 ALT 50 IU/L (10-60) 11/28/22 05:05 Alkaline Phosphatase 84 IU/L (42-121) 11/28/22 05:05 Total Creatine Kinase 701 IU/L (30-223) H 12/01/22 05:50 Total Protein 6.0 g/dL (6.4-8.9) L 11/28/22 05:05 Albumin 2.6 g/dL (3.2-5.5) L 11/28/22 05:05 Globulin 3.4 g/dL (2.1-4.2) 11/28/22 05:05 Albumin/Globulin Ratio 0.8 (1.0-2.2) L 11/26/22 19:40 Vitamin B12 746 pg/mL (180-914) 11/27/22 05:00 Folate > 44.6 ng/mL (5.90 - >24.8) 11/27/22 05:00 Urine Color YELLOW 11/26/22 19:50 Urine Clarity HAZY (CLEAR) 11/26/22 19:50 Urine pH 5.5 PH (5.0-7.5) 11/26/22 19:50 Ur Specific [place] 1.020 (1.002-1.030) 11/26/22 19:50 Urine Protein >=300 mg/dL (NEGATIVE) H 11/26/22 19:50 Urine Glucose (UA) NEGATIVE mg/dL (NEGATIVE) 11/26/22 19:50 Urine Ketones NEGATIVE mg/dL (NEGATIVE) 11/26/22 19:50 Urine Occult Blood LARGE (NEGATIVE) H 11/26/22 19:50 Urine Nitrite NEGATIVE (NEGATIVE) 11/26/22 19:50 Urine Bilirubin NEGATIVE (NEGATIVE) 11/26/22 19:50 Urine Urobilinogen 1 (NORMAL) E.U./dL (NORMAL) 11/26/22 19:50 Ur Leukocyte Esterase LARGE (NEGATIVE) H 11/26/22 19:50 Urine RBC 11-25 /HPF (0-5) H 11/26/22 19:50 Urine WBC >25 /HPF (0-3) H 11/26/22 19:50 Ur Squamous Epith Cells NONE SEEN (<= Few) 11/26/22 19:50 Urine Bacteria Moderate /HPF (None Seen) H 11/26/22 19:50 Urine Culture Comments INDICATED 11/26/22 19:50 Nasal Adenovirus (PCR) NOT DETECTED 11/26/22 19:35 Nasal B. parapertussis DNA (PCR) NOT DETECTED 11/26/22 19:35 Nasal Coronavir 229E PCR NOT DETECTED 11/26/22 19:35 Nasal Coronavir HKU1 PCR NOT DETECTED 11/26/22 19:35 Nasal Coronavir NL63 PCR NOT DETECTED 11/26/22 19:35 Nasal Coronavir OC43 PCR NOT DETECTED 11/26/22 19:35 Nasal Enterovir/Rhinovir PCR NOT DETECTED 11/26/22 19:35 Nasal Influenza B PCR NOT DETECTED 11/26/22 19:35 Nasal Influenza A PCR NOT DETECTED 11/26/22 19:35 Nasal Parainfluen 1 PCR NOT DETECTED 11/26/22 19:35 Nasal Parainfluen 2 PCR NOT DETECTED 11/26/22 19:35 Nasal Parainfluen 3 PCR NOT DETECTED 11/26/22 19:35 Nasal Parainfluen 4 PCR NOT DETECTED 11/26/22 19:35 Nasal RSV (PCR) NOT DETECTED 11/26/22 19:35 Nasal B.pertussis DNA PCR NOT DETECTED 11/26/22 19:35 Nasal C.pneumoniae (PCR) NOT DETECTED 11/26/22 19:35 [place] Human Metapneumo PCR NOT DETECTED 11/26/22 19:35 Nasal M.pneumoniae (PCR) NOT DETECTED 11/26/22 19:35 Nasal SARS-CoV-2 (PCR) NOT DETECTED 11/26/22 19:35 Stl Occult Blood (IFOB) POSITIVE (NEGATIVE) A 11/29/22 18:30 - Procedures Procedures: Procedures DETACHMENT AT RIGHT LOWER LEG, HIGH, OPEN APPROACH (08/18/17) INSERTION OF INFUSION DEV INTO SUP VENA CAVA, PERC APPROACH (10/03/20) TRANSFUSE NONAUT RED BLOOD CELLS IN PERIPH VEIN, PERC (08/18/17)
[2022-12-02] MEDS ORDERED: DULoxetine 30 MG CAPSULE ONE (20:56)
[2022-12-02] MEDS: ATORVASTATIN 10 MG TABLET PO SCH (21:04)
[2022-12-02] MEDS: DULoxetine 30 MG CAPSULE PO SCH (21:04)
[2022-12-03] MEDS: AMPICILLIN/SULBACTAM 3 GM in SODIUM CHLORIDE 0.9% MINIBAG 100 ML IV SCH ×2 (00:35→12:16)
[2022-12-03] MEDS: SODIUM CHLORIDE FLUSH 0.9% 10 ML SYRINGE IVP SCH ×3 (00:36→16:57)
[2022-12-03] MEDS: HYDROcod/ACETAM 5/325 MG TABLET PO PRN ×3 (00:47→16:55)
[2022-12-03 06:04] LABS: BASOPHILS # (AUTO) 0.1 10^3/uL (0.0-0.1); BASOPHILS % (AUTO) 0.8 %; EOSINOPHILS # (AUTO) 0.3 10^3/uL (0.0-0.7); EOSINOPHILS % (AUTO) 4.6 %; HCT - HEMATOCRIT 27.1 % (42.0-52.0); HGB - HEMOGLOBIN 8.2 g/dL (14.0-18.0); LYMPHOCYTES # (AUTO) 1.2 10^3/uL (1.5-3.5); LYMPHOCYTES % (AUTO) 19.8 %; MEAN CORPUSCULAR HGB CONC 30.3 g/dL (32.0-36.0); MEAN CORPUSCULAR VOLUME 89.1 fL (80.0-94.0); MEAN PLATELET VOLUME 9.4 fL (7.4-11.4); MONOCYTES # (AUTO) 0.5 10^3/uL (0.0-1.0); MONOCYTES % (AUTO) 8.9 %; NEUTROPHILS # (AUTO) 3.7 10^3/uL (1.5-6.6); NEUTROPHILS % (AUTO) 61.6 %; PLT - PLATELET COUNT 92 10^3/uL (130-450); RED BLOOD COUNT 3.04 10^6/uL (4.70-6.10); RED CELL DISTRIBUTION WIDTH 13.9 % (12.0-15.0); WHITE BLOOD COUNT 6.1 x10^3/uL (4.8-10.8)
[2022-12-03 06:21] LABS: CALCIUM 8.4 mg/dL (8.5-10.3); CREATININE 1.9 mg/dL (0.6-1.3); POTASSIUM 4.2 mmol/L (3.5-4.5)
[2022-12-03] MEDS: PANTOPRAZOLE 40 MG TABLET PO SCH (06:59)
[2022-12-03] MEDS: ACETAMINOPHEN 325 MG TABLET PO PRN ×2 (06:59→10:11)
[2022-12-03] MEDS: GABAPENTIN 300 MG CAPSULE PO SCH ×3 (06:59→21:18)
[2022-12-03] MEDS: oxyCODONE 5 MG TABLET PO PRN ×2 (06:59→21:20)
[2022-12-03] MEDS: INSULIN GLARGINE-YFGN 300 UNIT/3 ML PEN SUBQ SCH ×2 (10:09→21:19)
[2022-12-03] MEDS: INSULIN LISPRO 300 UNIT/3 ML PEN SUBQ SCH ×7 (10:10→21:20)
[2022-12-03] MEDS: carvediloL 12.5 MG TABLET PO SCH ×2 (10:10→21:17)
[2022-12-03] MEDS: TAMSULOSIN 0.4 MG CAPSULE PO SCH (10:11)
[2022-12-03] MEDS: FERROUS GLUCONATE 324 MG TABLET PO SCH (10:11)
[2022-12-03] MEDS: polyethylene glycoL 3350 17 GM PACKET PO SCH (10:11)
[2022-12-03] MEDS: DOCUSATE SODIUM 250 MG CAPSULE PO SCH (10:11)
[2022-12-03] MEDS: SENNA 8.6 MG TABLET PO SCH (10:11)
[2022-12-03] MEDS: LIDOCAINE PATCH 5% TOP SCH (10:12)
[2022-12-03] MEDS: NYSTATIN CREAM 15 GM TUBE TOP SCH ×2 (10:12→21:19)
[2022-12-03] MEDS: LORATADINE 10 MG TABLET PO SCH (11:34)
--- NOTE | 2022-12-03 12:21 | PROVIDER PROGRESS NOTE ---
Assessment/Plan - Problem List (1) Bacteremia due to Streptococcus Assessment/Plan: The 11/26 blood culture growing Strep mitis sensitivity reports sensitive to ampicillin, resistant to clindamycin. De-escalated patient to using Unasyn only. Repeat culture collected on 11/28/2022, has no growth to date PICC line insertion was done yesterday 11/30 Plan: He will need total 14 days of antibiotics after clearance of bacteremia, therefore from the 11/28 blood cx date. Hopefully he will receive the iv antibx at a SNF. We are awaiting an Echocardiogram to rule out endocarditis. I do not hear a murmur but he has obesity and a murmur may be present. If he has a vegetation, he would need 4 to 6 weeks of IV antibiotics. (We have no central lab technician here today, which is Sat, not until Saturday through of this week). Today his daughter was at bedside and I updated her with the plan (2) Enterococcus UTI Assessment/Plan: On Unasyn, continue antibx and plan as above (3) Acute urinary retention Assessment/Plan: He has a large prostate and had pelvic pain and urinary retention. Mahan was placed and he wants it left in Plan: I will start him on Tamsulosin Continue with this new Mahan and at discharge He will need outpatient urology management (4) Acute on chronic kidney failure Qualifiers: Acute renal failure type: unspecified Chronic kidney disease stage: stage 3 (moderate) Assessment/Plan: Secondary to rhabdo on top of preceding CKD. IV fluids were stopped 11/29 Plan: Cont monitoring creatinine level (5) DM Type 2 Assessment/Plan: He was taking Lantus 100 units in a.m. and 15 units in p.m. at home, A1c came back at 7.8 Plan: Continue with sliding scale insulin and nutrition coverage Cont the new Lantus (Semglee) 5 units sq BID (6) Chronic anemia Impression: He is chronically anemic at 9.0-9.7. B12 was normal at 746. Folate was greater than 44.6. Iron is low at 15, transferrin 189. This is a gentleman who has a history of alcohol abuse, has poor diet, most likely poor p.o. intake and nutrition. Some of his iron deficiency could be nutritional. He could also have mild gastritis. All labs were reviewed. Hemoglobin is now at 8.2 Fecal occult blood stool result: Plan: Cont empiric on Protonix, and p.o. iron. (7) Alcoholic cirrhosis of liver without ascites Impression: He has a history of alcohol abuse. AST was elevated, and he has associated thrombocytopenia. AST was 60 on admission. And ALT was normal at 31. His cirrhosis may be due to fatty liver. He denied current ongoing alcohol abuse. (8) LBP Assessment/Plan: This pain predated his admission. Lidocaine patch and p.o. oxycodone do not control the pain, he told me today. It is worsened by the fact that he is hardly OOB during the day, just dangles when PT works with him. When he was out of bed for 2 hours several days ago in a chair, he said that left hip was in severe pain Plan: I will add Dilaudid p.o. 2 mg every 12 hours as needed severe pain (9) Rhabdomyolysis Qualifiers: Qualified Code(s): M62.82 - Rhabdomyolysis Assessment/Plan: RESOLVED He fell at home and layed there for prolonged period of time CK level trended down daily (all labs were reviewed), even after IV fluids were stopped 11/29 Plan: PT is seeing him regarding the fall. The patient refused to live in a long-term [facility]. I asked him who will help him at home since he has been bedbound for the last several days and he said he does not know. I asked him to start thinking about that going forward. Will need SW input. - Current Meds Current Meds: Current Medications Generic Name Dose Route Start Last Admin Trade Name Lukeq PRN Reason Stop Dose Admin Acetaminophen 650 mg 11/26/22 23:49 12/03/22 10:11 Acetaminophen 325 Mg Tablet PO 650 mg Q4HR PRN Administration Pain 1 to 4, or Fever Hydrocodone Bitart/Acetaminophen 1 tab 11/27/22 01:35 12/03/22 11:34 Hydrocod/Acetam 5/325 Mg Tablet PO 1 tab Q4HR PRN Administration Moderate Pain (Level 4-6) Atorvastatin Calcium 40 mg 11/26/22 23:45 12/02/22 21:04 Atorvastatin 10 Mg Tablet PO 40 mg HS CATIE Administration Calamine 1 applic 11/27/22 17:22 12/02/22 09:19 Calamine/Zinc Oxide 177 Ml Bottle TOP 1 applic PRN PRN Administration SKIN CARE Carvedilol 25 mg 11/27/22 01:00 12/03/22 10:10 Carvedilol 12.5 Mg Tablet PO 25 mg BID CATIE Administration Diphenhydramine HCl 25 mg 11/27/22 22:20 12/02/22 09:35 Diphenhydramine 25 Mg Capsule PO 25 mg Q4HR PRN Administration Allergy Symptoms Docusate Sodium 250 - 500 mg 11/30/22 09:00 12/03/22 10:11 Docusate Sodium 250 Mg Capsule PO 250 mg DAILY CATIE Administration Duloxetine HCl 60 mg 12/02/22 21:00 12/02/22 21:04 Duloxetine 30 Mg Capsule PO 60 mg HS CATIE Administration Ferrous Gluconate 324 mg 11/28/22 08:00 12/03/22 10:11 Ferrous Gluconate 324 Mg Tablet PO 324 mg DAILYWM CATIE Administration Gabapentin 300 mg 11/27/22 01:00 12/03/22 06:59 Gabapentin 300 Mg Capsule PO 300 mg TID CATIE Administration Ampicillin Sodium/Sulbactam 100 mls @ 200 mls/hr 11/28/22 12:00 12/03/22 12:16 Sodium 3 gm/ Sodium Chloride IV 200 mls/hr Q12H CATIE Administration Insulin Glargine-yfgn 5 unit 11/30/22 21:00 12/03/22 10:09 Insulin Glargine-Yfgn 300 Unit/3 Ml Pen SUBQ 5 unit BID CATIE Administration Insulin Human Lispro 1 - 9 unit 11/27/22 08:00 12/03/22 12:15 Insulin Lispro 300 Unit/3 Ml Pen SUBQ 1 unit 0800,1200,1700,2100 [facility] Administration Protocol Insulin Human Lispro 2 unit 11/28/22 17:00 12/03/22 12:15 Insulin Lispro 300 Unit/3 Ml Pen SUBQ 2 unit TIDWM [facility] Administration Protocol Lidocaine 1 patch 11/27/22 09:00 12/03/22 10:12 Lidocaine Patch 5% TOP 1 patch DAILY CATIE Administration Loratadine 10 mg 11/27/22 09:00 12/03/22 11:34 Loratadine 10 Mg Tablet PO 10 mg DAILY CATIE Administration Multi-Ingredient Ointment 1 applic 11/27/22 01:57 11/30/22 17:29 Zinc Oxide 20% Oint 30 Gm Tube TOP 1 applic PRN PRN Administration Skin Care Nystatin 1 applic 11/27/22 12:00 12/03/22 10:12 Nystatin Cream 15 Gm Tube TOP 1 applic BID CATIE Administration Oxycodone HCl 5 mg 11/28/22 10:14 12/03/22 06:59 Oxycodone 5 Mg Tablet PO 5 mg Q6H PRN Administration Moderate Pain (Level 4-6) Pantoprazole Sodium 40 mg 11/27/22 18:00 12/03/22 06:59 Pantoprazole 40 Mg Tablet PO 40 mg QDAC CATIE Administration Polyethylene Glycol 17 gm 11/29/22 13:00 12/03/22 10:11 Polyethylene Glycol 3350 17 Gm Packet PO Not Given DAILY CATIE Prochlorperazine Edisylate 10 mg 11/26/22 23:49 11/28/22 17:32 Prochlorperazine 10 Mg/2 Ml Vial IVP 10 mg Q6HR PRN Administration Nausea / Vomiting Senna 8.6 - 17.2 mg 11/30/22 09:00 12/03/22 10:11 Senna 8.6 Mg Tablet PO 8.6 mg DAILY CATIE Administration Sodium Chloride 10 ml 11/27/22 01:00 12/03/22 10:12 Sodium Chloride Flush 0.9% 10 Ml Syringe IVP 10 ml 0100,0900,1700 CATIE Administration Tamsulosin HCl 0.4 mg 11/27/22 09:00 12/03/22 10:11 Tamsulosin 0.4 Mg Capsule PO 0.4 mg DAILY CATIE Administration - Lab Result Fish Bone Diagrams: 12/03/22 05:47 12/03/22 05:47 - Additional Planning My Orders: My Active Orders 12/04/22 07:00 Echo Transthoracic Complete [ECHO] Routine Subjective - Subjective Patient Reports: Back Pain (Requesting a stronger pain medication for the pain in his left posterior hip, he is already wearing a lidocaine patch over this area.) Objective Vital Signs: Vital Signs - 24 hr 12/02/22 12/02/22 12/03/22 15:57 21:13 02:58 Temperature 36.8 C 36.7 C 36.4 C L Heart Rate [ 66 67 69 Brachial] Respiratory 18 16 16 Rate Blood Pressure 146/73 H 150/65 H 157/69 H [Right Radial artery] O2 Saturation 94 95 94 12/03/22 08:00 Temperature 36.6 C Heart Rate [ 70 Brachial] Respiratory 18 Rate Blood Pressure 189/76 H [Right Radial artery] O2 Saturation 98 Oxygen O2 Source Room air I&O (Last 24 Hrs): Intake and Output Totals x24h 12/01/22 12/02/22 12/03/22 23:59 23:59 23:59 Intake Total 1660 2767 740 Output Total 3500 2975 875 Balance -1840 -208 -135 General: Alert, Oriented x3, Other (Male pattern baldness) HEENT: Mucous membr. 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 Left lower extremity has venous stasis changes of the vera and 1+ edema.) - Results Results: Laboratory Results WBC 6.1 x10^3/uL (4.8-10.8) 12/03/22 05:47 RBC 3.04 10^6/uL (4.70-6.10) L 12/03/22 05:47 Hgb 8.2 g/dL (14.0-18.0) L 12/03/22 05:47 Hct 27.1 % (42.0-52.0) L 12/03/22 05:47 MCV 89.1 fL (80.0-94.0) 12/03/22 05:47 MCH 27.0 pg (27.0-31.0) 12/03/22 05:47 MCHC 30.3 g/dL (32.0-36.0) L 12/03/22 05:47 RDW 13.9 % (12.0-15.0) 12/03/22 05:47 Plt Count 92 10^3/uL (130-450) L 12/03/22 05:47 MPV 9.4 fL (7.4-11.4) 12/03/22 05:47 Neut # (Auto) 3.7 10^3/uL (1.5-6.6) 12/03/22 05:47 Lymph # (Auto) 1.2 10^3/uL (1.5-3.5) L 12/03/22 05:47 [place] # (Auto) 0.5 10^3/uL (0.0-1.0) 12/03/22 05:47 Eos # (Auto) 0.3 10^3/uL (0.0-0.7) 12/03/22 05:47 Baso # (Auto) 0.1 10^3/uL (0.0-0.1) 12/03/22 05:47 Absolute Nucleated RBC 0.00 x10^3/uL 12/03/22 05:47 Nucleated RBC % 0.0 /100WBC 12/03/22 05:47 PT 11.8 secs (9.9-12.6) 11/28/22 05:05 INR 1.1 (0.8-1.2) 11/28/22 05:05 Sodium 135 mmol/L (135-145) 12/03/22 05:47 Potassium 4.2 mmol/L (3.5-4.5) 12/03/22 05:47 Chloride 110 mmol/L (101-111) 12/03/22 05:47 Carbon Dioxide 20 mmol/L (21-32) L 12/03/22 05:47 Anion Gap 5.0 (6-13) L 12/03/22 05:47 BUN 36 mg/dL (6-20) H 12/03/22 05:47 Creatinine 1.9 mg/dL (0.6-1.3) H 12/03/22 05:47 Estimated GFR (MDRD) 34 (>89) L 12/03/22 05:47 Glucose 144 mg/dL (74-104) H 12/03/22 05:47 POC Whole Bld Glucose 165 mg/dL (70 - 100) H 12/03/22 11:27 Estimat Average Glucose 177 mg/dL (70-100) H 11/28/22 05:05 Hemoglobin A1c % 7.8 % (4.27-6.07) H 11/28/22 05:05 Lactic Acid 1.3 mmol/L (0.5-2.2) 11/26/22 19:40 Calcium 8.4 mg/dL (8.5-10.3) L 12/03/22 05:47 Iron 15 ug/dL (50-212) L 11/27/22 05:00 TIBC 265 ug/dL (250-450) 11/27/22 05:00 % Saturation 6 % (20-50) L 11/27/22 05:00 Transferrin 189 mg/dL (203-362) L 11/27/22 05:00 Total Bilirubin 0.5 mg/dL (0.2-1.0) 11/28/22 05:05 Direct Bilirubin 0.16 mg/dL (0.03-0.18) 11/28/22 05:05 AST 151 IU/L (10-42) H 11/28/22 05:05 ALT 50 IU/L (10-60) 11/28/22 05:05 Alkaline Phosphatase 84 IU/L (42-121) 11/28/22 05:05 Total Creatine Kinase 701 IU/L (30-223) H 12/01/22 05:50 Total Protein 6.0 g/dL (6.4-8.9) L 11/28/22 05:05 Albumin 2.6 g/dL (3.2-5.5) L 11/28/22 05:05 Globulin 3.4 g/dL (2.1-4.2) 11/28/22 05:05 Albumin/Globulin Ratio 0.8 (1.0-2.2) L 11/26/22 19:40 Vitamin B12 746 pg/mL (180-914) 11/27/22 05:00 Folate > 44.6 ng/mL (5.90 - >24.8) 11/27/22 05:00 Urine Color YELLOW 11/26/22 19:50 Urine Clarity HAZY (CLEAR) 11/26/22 19:50 Urine pH 5.5 PH (5.0-7.5) 11/26/22 19:50 Ur Specific [place] 1.020 (1.002-1.030) 11/26/22 19:50 Urine Protein >=300 mg/dL (NEGATIVE) H 11/26/22 19:50 Urine Glucose (UA) NEGATIVE mg/dL (NEGATIVE) 11/26/22 19:50 Urine Ketones NEGATIVE mg/dL (NEGATIVE) 11/26/22 19:50 Urine Occult Blood LARGE (NEGATIVE) H 11/26/22 19:50 Urine Nitrite NEGATIVE (NEGATIVE) 11/26/22 19:50 Urine Bilirubin NEGATIVE (NEGATIVE) 11/26/22 19:50 Urine Urobilinogen 1 (NORMAL) E.U./dL (NORMAL) 11/26/22 19:50 Ur Leukocyte Esterase LARGE (NEGATIVE) H 11/26/22 19:50 Urine RBC 11-25 /HPF (0-5) H 11/26/22 19:50 Urine WBC >25 /HPF (0-3) H 11/26/22 19:50 Ur Squamous Epith Cells NONE SEEN (<= Few) 11/26/22 19:50 Urine Bacteria Moderate /HPF (None Seen) H 11/26/22 19:50 Urine Culture Comments INDICATED 11/26/22 19:50 Nasal Adenovirus (PCR) NOT DETECTED 11/26/22 19:35 Nasal B. parapertussis DNA (PCR) NOT DETECTED 11/26/22 19:35 Nasal Coronavir 229E PCR NOT DETECTED 11/26/22 19:35 Nasal Coronavir HKU1 PCR NOT DETECTED 11/26/22 19:35 Nasal Coronavir NL63 PCR NOT DETECTED 11/26/22 19:35 Nasal Coronavir OC43 PCR NOT DETECTED 11/26/22 19:35 Nasal Enterovir/Rhinovir PCR NOT DETECTED 11/26/22 19:35 Nasal Influenza B PCR NOT DETECTED 11/26/22 19:35 Nasal Influenza A PCR NOT DETECTED 11/26/22 19:35 Nasal Parainfluen 1 PCR NOT DETECTED 11/26/22 19:35 Nasal Parainfluen 2 PCR NOT DETECTED 11/26/22 19:35 Nasal Parainfluen 3 PCR NOT DETECTED 11/26/22 19:35 Nasal Parainfluen 4 PCR NOT DETECTED 11/26/22 19:35 Nasal RSV (PCR) NOT DETECTED 11/26/22 19:35 Nasal B.pertussis DNA PCR NOT DETECTED 11/26/22 19:35 Nasal C.pneumoniae (PCR) NOT DETECTED 11/26/22 19:35 [place] Human Metapneumo PCR NOT DETECTED 11/26/22 19:35 Nasal M.pneumoniae (PCR) NOT DETECTED 11/26/22 19:35 Nasal SARS-CoV-2 (PCR) NOT DETECTED 11/26/22 19:35 Stl Occult Blood (IFOB) POSITIVE (NEGATIVE) A 11/29/22 18:30 - Procedures Procedures: Procedures DETACHMENT AT RIGHT LOWER LEG, HIGH, OPEN APPROACH (08/18/17) INSERTION OF INFUSION DEV INTO SUP VENA CAVA, PERC APPROACH (10/03/20) TRANSFUSE NONAUT RED BLOOD CELLS IN PERIPH VEIN, PERC (08/18/17)
[2022-12-03] MEDS: HYDROmorphone 2 MG TABLET PO PRN (13:27)
[2022-12-03] MEDS: ATORVASTATIN 10 MG TABLET PO SCH (21:17)
[2022-12-03] MEDS: DULoxetine 30 MG CAPSULE PO SCH (21:18)
[2022-12-03] MEDS: ZINC OXIDE 20% OINT 30 GM TUBE TOP PRN (21:27)
[2022-12-04] MEDS: AMPICILLIN/SULBACTAM 3 GM in SODIUM CHLORIDE 0.9% MINIBAG 100 ML IV SCH ×2 (00:01→11:49)
[2022-12-04] MEDS: SODIUM CHLORIDE FLUSH 0.9% 10 ML SYRINGE IVP SCH ×3 (00:03→17:15)
[2022-12-04] MEDS: HYDROcod/ACETAM 5/325 MG TABLET PO PRN ×3 (00:16→14:16)
[2022-12-04] MEDS: diphenhydrAMINE 25 MG CAPSULE PO PRN ×2 (00:23→21:21)
[2022-12-04 05:47] LABS: BASOPHILS % (AUTO) 0.6 %; EOSINOPHILS % (AUTO) 4.4 %; HCT - HEMATOCRIT 27.4 % (42.0-52.0); HGB - HEMOGLOBIN 8.4 g/dL (14.0-18.0); LYMPHOCYTES % (AUTO) 18.7 %; MEAN CORPUSCULAR HEMOGLOBIN 27.6 pg (27.0-31.0); MEAN CORPUSCULAR HGB CONC 30.7 g/dL (32.0-36.0); MEAN CORPUSCULAR VOLUME 90.1 fL (80.0-94.0); MEAN PLATELET VOLUME 9.8 fL (7.4-11.4); MONOCYTES % (AUTO) 8.9 %; NEUTROPHILS % (AUTO) 62.1 %; PLT - PLATELET COUNT 96 10^3/uL (130-450); RED BLOOD COUNT 3.04 10^6/uL (4.70-6.10); RED CELL DISTRIBUTION WIDTH 14.3 % (12.0-15.0); WHITE BLOOD COUNT 6.2 x10^3/uL (4.8-10.8)
[2022-12-04] MEDS: GABAPENTIN 300 MG CAPSULE PO SCH ×3 (05:47→21:10)
[2022-12-04 05:51] LABS: ABNORMAL LYMPHS % (MANUAL) 0 %
[2022-12-04 05:55] LABS: CALCIUM 8.4 mg/dL (8.5-10.3); CREATININE 1.7 mg/dL (0.6-1.3); POTASSIUM 4.3 mmol/L (3.5-4.5)
[2022-12-04 06:21] LABS: BAND NEUTROPHILS % (MANUAL) 3 %; DIFFERENTIAL COMMENT MANUAL DIFFERENTIAL; EOSINOPHILS # (MANUAL) 0.4 10^3/uL (0-0.7); LYMPHOCYTES # (MANUAL) 0.9 10^3/uL (1.5-3.5); LYMPHOCYTES % (MANUAL) 15 %; METAMYELOCYTES % (MANUAL) 2 %; MONOCYTES # (MANUAL) 0.4 10^3/uL (0.0-1.0); MYELOCYTES % (MANUAL) 2 %; NEUTROPHILS # (MANUAL) 4.2 10^3/uL (1.5-6.6); PLATELET ESTIMATE, MANUAL DECREASED (<130,000) (NORMAL); RBC MORPHOLOGY (MULTIPLE) NORMAL APPEARANCE (NORMAL)
[2022-12-04] MEDS: PANTOPRAZOLE 40 MG TABLET PO SCH (07:31)
[2022-12-04] MEDS: INSULIN GLARGINE-YFGN 300 UNIT/3 ML PEN SUBQ SCH ×2 (08:31→21:11)
[2022-12-04] MEDS: INSULIN LISPRO 300 UNIT/3 ML PEN SUBQ SCH ×7 (08:32→21:11)
[2022-12-04] MEDS: DOCUSATE SODIUM 250 MG CAPSULE PO SCH (08:33)
[2022-12-04] MEDS: polyethylene glycoL 3350 17 GM PACKET PO SCH (08:33)
[2022-12-04] MEDS: TAMSULOSIN 0.4 MG CAPSULE PO SCH (08:33)
[2022-12-04] MEDS: LIDOCAINE PATCH 5% TOP SCH (08:33)
[2022-12-04] MEDS: LORATADINE 10 MG TABLET PO SCH (08:34)
[2022-12-04] MEDS: carvediloL 12.5 MG TABLET PO SCH ×2 (08:34→21:10)
[2022-12-04] MEDS: FERROUS GLUCONATE 324 MG TABLET PO SCH (08:34)
[2022-12-04] MEDS: SENNA 8.6 MG TABLET PO SCH (08:34)
[2022-12-04] MEDS: NYSTATIN CREAM 15 GM TUBE TOP SCH ×2 (08:35→21:18)
[2022-12-04] MEDS: CALAMINE/ZINC OXIDE 177 ML BOTTLE TOP PRN ×2 (08:43→21:15)
[2022-12-04] MEDS: HYDROmorphone 2 MG TABLET PO PRN (17:14)
--- NOTE | 2022-12-04 17:52 | PROVIDER PROGRESS NOTE ---
Assessment/Plan - Problem List (1) Bacteremia due to Streptococcus Assessment/Plan: The 11/26 blood culture growing Strep mitis, sensitivity reports sensitive to ampicillin, resistant to clindamycin. De-escalated patient to using Unasyn. Repeat culture collected on 11/28/2022, has no growth to date. Today I de- escalated him to iv Ampicillin PICC line insertion was done on 11/30 for a (minimum) 2 week antibx course, or 4-6 weeks if has endocarditis Plan: The Echocardiogram was done today (we have no robotic technician except Tuesdays through ). The Echo shows normal LVEF and moderate aortic stenosis. A vegetation cannot be ruled out on this valve. He therefore needs a JOSE Today I worked on getting him transferred to a facility with capability to do JOSE. This afternoon he has been accepted by the Hospitalist at [facility]. The plan is for him to go there to have a JOSE and return here. 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 He has been seen at wound clinic for continued redness and swelling of the stump but there is no active infection there according to wound clinic. They have however forbade him from using the prosthesis on that stump because of the swelling Plan: I reported this to the Hospitalist at [facility] today. This could be a potential source for his Strep bacteremia (4) Enterococcus UTI Assessment/Plan: He has now received 8 days of antibiotics which cover the Enterococcus as well (5) Acute urinary retention Assessment/Plan: He has a large prostate and had pelvic pain and urinary retention. Mahan was placed after retention found at admission, and he wants it left in Plan: I have started him on Tamsulosin Continue with this new Mahan now and at discharge He will need outpatient Urology management (6) DM Type 2 Assessment/Plan: He was taking Lantus 100 units in a.m. and 50 units in p.m. at home. His A1c came back at 7.8. Here he is only needed long-acting insulin 5 units BID, plus 5 units short acting with meals. This suggest that he was eating a lot of sweets and starches to need such high amounts of Lantus at home Plan: Continue with sliding scale insulin and nutrition coverage Cont the new Lantus (Semglee) 5 units sq BID (7) Chronic anemia Impression: He is chronically anemic at 9.0-9.7. B12 was normal at 746. Folate was greater than 44.6. Iron is low at 15, transferrin 189. This is a gentleman who has a history of alcohol abuse, has poor diet, most likely poor p.o. intake and nutrition. Some of his iron deficiency could be nutritional. He could also have mild gastritis. All labs were reviewed. Hemoglobin is now at 8.2 Fecal occult blood stool result: Plan: Cont empiric on Protonix, and p.o. iron. (8) Acute on chronic kidney failure Qualifiers: Acute renal failure type: unspecified Chronic kidney disease stage: stage 3 (moderate) Assessment/Plan: IMPROVED Creat at adm was 3. This was secondary to rhabdo on top of CKD. Creat now running 1.7 IV fluids were stopped 11/29 Plan: Cont monitoring creatinine levels intermittently (9) Alcoholic cirrhosis of liver without ascites Impression: He has a history of alcohol abuse. AST was elevated, and he has associated thrombocytopenia. AST was 60 on admission. And ALT was normal at 31. His cirrhosis may be due to fatty liver. He denied current ongoing alcohol abuse. (10) LBP Assessment/Plan: This pain predated his admission. Lidocaine patch and p.o. oxycodone do not control the pain, he told me today. It is worsened by the fact that he is hardly OOB during the day, just dangles when PT works with him. When he was out of bed for 2 hours several days ago in a chair, he said that left hip was in severe pain Plan: I added Dilaudid p.o. 2 mg every 12 hours as needed for severe pain (11) Rhabdomyolysis Qualifiers: Qualified Code(s): M62.82 - Rhabdomyolysis Assessment/Plan: RESOLVED He fell at home and layed there for prolonged period of time CK level trended down daily (all labs were reviewed), even after IV fluids were stopped on 11/29 Plan: PT is seeing him regarding the fall. The patient refused to live in a long-term snf. I asked him who will help him at home since he has been bedbound for the last several days and he said he does not know. I asked him to start thinking about that going forward. Will need SW input. - Current Meds Current Meds: Current Medications Generic Name Dose Route Start Last Admin Trade Name [place] PRN Reason Stop Dose Admin Acetaminophen 650 mg 11/26/22 23:49 12/03/22 10:11 Acetaminophen 325 Mg Tablet PO 650 mg Q4HR PRN Administration Pain 1 to 4, or Fever Hydrocodone Bitart/Acetaminophen 1 tab 11/27/22 01:35 12/04/22 14:16 Hydrocod/Acetam 5/325 Mg Tablet PO 1 tab Q4HR PRN Administration Moderate Pain (Level 4-6) Atorvastatin Calcium 40 mg 11/26/22 23:45 12/03/22 21:17 Atorvastatin 10 Mg Tablet PO 40 mg HS CATIE Administration Calamine 1 applic 11/27/22 17:22 12/04/22 08:43 Calamine/Zinc Oxide 177 Ml Bottle TOP 1 applic PRN PRN Administration SKIN CARE Carvedilol 25 mg 11/27/22 01:00 12/04/22 08:34 Carvedilol 12.5 Mg Tablet PO 25 mg BID CATIE Administration Diphenhydramine HCl 25 mg 11/27/22 22:20 12/04/22 00:23 Diphenhydramine 25 Mg Capsule PO 25 mg Q4HR PRN Administration Allergy Symptoms Docusate Sodium 250 - 500 mg 11/30/22 09:00 12/04/22 08:33 Docusate Sodium 250 Mg Capsule PO 250 mg DAILY CATIE Administration Duloxetine HCl 60 mg 12/02/22 21:00 12/03/22 21:18 Duloxetine 30 Mg Capsule PO 60 mg HS CATIE Administration Ferrous Gluconate 324 mg 11/28/22 08:00 12/04/22 08:34 Ferrous Gluconate 324 Mg Tablet PO 324 mg DAILYWM CATIE Administration Gabapentin 300 mg 11/27/22 01:00 12/04/22 14:15 Gabapentin 300 Mg Capsule PO 300 mg TID CATIE Administration Hydromorphone HCl 2 mg 12/03/22 13:09 12/04/22 17:14 Hydromorphone 2 Mg Tablet PO 2 mg Q12H PRN Administration Severe Pain (Level 7-10) Insulin Glargine-yfgn 5 unit 11/30/22 21:00 12/04/22 08:31 Insulin Glargine-Yfgn 300 Unit/3 Ml Pen SUBQ 5 unit BID CATIE Administration Insulin Human Lispro 1 - 9 unit 11/27/22 08:00 12/04/22 17:15 Insulin Lispro 300 Unit/3 Ml Pen SUBQ 1 unit 0800,1200,1700,2100 CATIE Administration Protocol Insulin Human Lispro 2 unit 11/28/22 17:00 12/04/22 17:15 Insulin Lispro 300 Unit/3 Ml Pen SUBQ 2 unit TIDWM CATIE Administration Protocol Lidocaine 1 patch 11/27/22 09:00 12/04/22 08:33 Lidocaine Patch 5% TOP 1 patch DAILY CATIE Administration Loratadine 10 mg 11/27/22 09:00 12/04/22 08:34 Loratadine 10 Mg Tablet PO 10 mg DAILY CATIE Administration Multi-Ingredient Ointment 1 applic 11/27/22 01:57 12/03/22 21:27 Zinc Oxide 20% Oint 30 Gm Tube TOP 1 applic PRN PRN Administration Skin Care Nystatin 1 applic 11/27/22 12:00 12/04/22 08:35 Nystatin Cream 15 Gm Tube TOP 1 applic BID CATIE Administration Oxycodone HCl 5 mg 11/28/22 10:14 12/03/22 21:20 Oxycodone 5 Mg Tablet PO 5 mg Q6H PRN Administration Moderate Pain (Level 4-6) Pantoprazole Sodium 40 mg 11/27/22 18:00 12/04/22 07:31 Pantoprazole 40 Mg Tablet PO 40 mg QDAC CATIE Administration Polyethylene Glycol 17 gm 11/29/22 13:00 12/04/22 08:33 Polyethylene Glycol 3350 17 Gm Packet PO 17 gm DAILY CATIE Administration Prochlorperazine Edisylate 10 mg 11/26/22 23:49 11/28/22 17:32 Prochlorperazine 10 Mg/2 Ml Vial IVP 10 mg Q6HR PRN Administration Nausea / Vomiting Senna 8.6 - 17.2 mg 11/30/22 09:00 12/04/22 08:34 Senna 8.6 Mg Tablet PO 8.6 mg DAILY CATIE Administration Sodium Chloride 10 ml 11/26/22 23:49 12/04/22 02:20 Sodium Chloride Flush 0.9% 10 Ml Syringe IVP 10 ml PRN PRN Administration NEEDED PER PROVIDER ORDERS Sodium Chloride 10 ml 11/27/22 01:00 12/04/22 17:15 Sodium Chloride Flush 0.9% 10 Ml Syringe IVP 10 ml 0100,0900,1700 CATIE Administration Tamsulosin HCl 0.4 mg 11/27/22 09:00 12/04/22 08:33 Tamsulosin 0.4 Mg Capsule PO 0.4 mg DAILY CATIE Administration - Lab Result Fish Bone Diagrams: 12/04/22 05:20 12/04/22 05:20 - Diagnostic Imaging Results Diagnostic Imaging Results: Final report reviewed - Additional Planning My Orders: My Active Orders 12/04/22 18:00 Ampicillin [Ampicillin Sodium] 2 gm Sodium Chloride 0.9% Minibag [Normal Saline 0.9% Minibag] 100 ml IV Q6HR Subjective - Subjective Patient Reports: Pain (in L hip, worse with mvm. He has been motivated and working more wit PT every day.) Objective Vital Signs: Vital Signs - 24 hr 12/04/22 12/04/22 00:27 07:47 Temperature 36.8 C 36.5 C Heart Rate [ 83 Brachial] Heart Rate [ 72 Radial] Respiratory 16 18 Rate Blood Pressure 145/76 H [Left Radial artery] Blood Pressure 153/94 H [Right Radial artery] O2 Saturation 97 94 Oxygen O2 Source Room air I&O (Last 24 Hrs): Intake and Output Totals x24h 12/02/22 12/03/22 12/04/22 23:59 23:59 23:59 Intake Total 2767 1580 1160 Output Total 2975 2175 1050 Balance -208 -595 110 General: Alert, Oriented x3 HEENT: Mucous membr. moist/pink, Other (poor dentition. MAle pattern baldnes) Neck: Supple, No JVD Neuro: Alert, Non Focal, Oriented Times 3 Cardiovascular: Regular rate (Very distant heart sounds due to morbid obesity) Respiratory: No respiratory distress, Breath sounds nml Abdomen: Soft, Other (Obese with pannus) Extremities: Other (Right leg has BKA with swelling at stump. Left leg has venous stasis changes and trace pedal edema) - Results Results: Laboratory Results WBC 6.2 x10^3/uL (4.8-10.8) 12/04/22 05:20 RBC 3.04 10^6/uL (4.70-6.10) L 09/05/23 05:20 Hgb 8.4 g/dL (14.0-18.0) L 12/04/22 05:20 Hct 27.4 % (42.0-52.0) L 12/04/22 05:20 MCV 90.1 fL (80.0-94.0) 12/04/22 05:20 MCH 27.6 pg (27.0-31.0) 12/04/22 05:20 MCHC 30.7 g/dL (32.0-36.0) L 12/04/22 05:20 RDW 14.3 % (12.0-15.0) 12/04/22 05:20 Plt Count 96 10^3/uL (130-450) L 12/04/22 05:20 MPV 9.8 fL (7.4-11.4) 12/04/22 05:20 Neut # (Auto) Not Reportable 12/04/22 05:20 Lymph # (Auto) Not Reportable 12/04/22 05:20 [place] # (Auto) Not Reportable 12/04/22 05:20 Eos # (Auto) Not Reportable 12/04/22 05:20 Baso # (Auto) Not Reportable 12/04/22 05:20 Absolute Nucleated RBC Not Reportable 12/04/22 05:20 Total Counted 100 12/04/22 05:20 Band Neuts % (Manual) 3 % (0-10) 12/04/22 05:20 Abnorm Lymph % (Manual) 0 % 12/04/22 05:20 Metamyelocytes % 2 % (-0) H 12/04/22 05:20 Myelocytes % 2 % (-0) H 12/04/22 05:20 Nucleated RBC % Not Reportable 12/04/22 05:20 Neutrophils # (Manual) 4.2 10^3/uL (1.5-6.6) 12/04/22 05:20 Lymphocytes # (Manual) 0.9 10^3/uL (1.5-3.5) L 12/04/22 05:20 Monocytes # (Manual) 0.4 10^3/uL (0.0-1.0) 12/04/22 05:20 Eosinophils # (Manual) 0.4 10^3/uL (0-0.7) 12/04/22 05:20 Basophils # (Manual) 0.0 10^3/uL (0-0.1) 12/04/22 05:20 Differential Comment MANUAL DIFFERENTIAL 12/04/22 05:20 Platelet Estimate DECREASED (<130,000) (NORMAL) 12/04/22 05:20 RBC Morph Micro Appear NORMAL APPEARANCE (NORMAL) 12/04/22 05:20 PT 11.8 secs (9.9-12.6) 11/28/22 05:05 INR 1.1 (0.8-1.2) 11/28/22 05:05 Sodium 135 mmol/L (135-145) 12/04/22 05:20 Potassium 4.3 mmol/L (3.5-4.5) 12/04/22 05:20 Chloride 110 mmol/L (101-111) 12/04/22 05:20 Carbon Dioxide 21 mmol/L (21-32) 12/04/22 05:20 Anion Gap 4.0 (6-13) L 12/04/22 05:20 BUN 28 mg/dL (6-20) H 12/04/22 05:20 Creatinine 1.7 mg/dL (0.6-1.3) H 12/04/22 05:20 Estimated GFR (MDRD) 39 (>89) L 12/04/22 05:20 Glucose 151 mg/dL (74-104) H 12/04/22 05:20 POC Whole Bld Glucose 152 mg/dL (70 - 100) H 12/04/22 16:49 Estimat Average Glucose 177 mg/dL (70-100) H 11/28/22 05:05 Hemoglobin A1c % 7.8 % (4.27-6.07) H 11/28/22 05:05 Lactic Acid 1.3 mmol/L (0.5-2.2) 11/26/22 19:40 Calcium 8.4 mg/dL (8.5-10.3) L 12/04/22 05:20 Iron 15 ug/dL (50-212) L 11/27/22 05:00 TIBC 265 ug/dL (250-450) 11/27/22 05:00 % Saturation 6 % (20-50) L 11/27/22 05:00 Transferrin 189 mg/dL (203-362) L 11/27/22 05:00 Total Bilirubin 0.5 mg/dL (0.2-1.0) 11/28/22 05:05 Direct Bilirubin 0.16 mg/dL (0.03-0.18) 11/28/22 05:05 AST 151 IU/L (10-42) H 11/28/22 05:05 ALT 50 IU/L (10-60) 11/28/22 05:05 Alkaline Phosphatase 84 IU/L (42-121) 11/28/22 05:05 Total Creatine Kinase 701 IU/L (30-223) H 12/01/22 05:50 Total Protein 6.0 g/dL (6.4-8.9) L 11/28/22 05:05 Albumin 2.6 g/dL (3.2-5.5) L 11/28/22 05:05 Globulin 3.4 g/dL (2.1-4.2) 11/28/22 05:05 Albumin/Globulin Ratio 0.8 (1.0-2.2) L 11/26/22 19:40 Vitamin B12 746 pg/mL (180-914) 11/27/22 05:00 Folate > 44.6 ng/mL (5.90 - >24.8) 11/27/22 05:00 Urine Color YELLOW 11/26/22 19:50 Urine Clarity HAZY (CLEAR) 11/26/22 19:50 Urine pH 5.5 PH (5.0-7.5) 11/26/22 19:50 Ur Specific [place] 1.020 (1.002-1.030) 11/26/22 19:50 Urine Protein >=300 mg/dL (NEGATIVE) H 11/26/22 19:50 Urine Glucose (UA) NEGATIVE mg/dL (NEGATIVE) 11/26/22 19:50 Urine Ketones NEGATIVE mg/dL (NEGATIVE) 11/26/22 19:50 Urine Occult Blood LARGE (NEGATIVE) H 11/26/22 19:50 Urine Nitrite NEGATIVE (NEGATIVE) 11/26/22 19:50 Urine Bilirubin NEGATIVE (NEGATIVE) 11/26/22 19:50 Urine Urobilinogen 1 (NORMAL) E.U./dL (NORMAL) 11/26/22 19:50 Ur Leukocyte Esterase LARGE (NEGATIVE) H 11/26/22 19:50 Urine RBC 11-25 /HPF (0-5) H 11/26/22 19:50 Urine WBC >25 /HPF (0-3) H 11/26/22 19:50 Ur Squamous Epith Cells NONE SEEN (<= Few) 11/26/22 19:50 Urine Bacteria Moderate /HPF (None Seen) H 11/26/22 19:50 Urine Culture Comments INDICATED 11/26/22 19:50 Nasal Adenovirus (PCR) NOT DETECTED 11/26/22 19:35 Nasal B. parapertussis DNA (PCR) NOT DETECTED 11/26/22 19:35 Nasal Coronavir 229E PCR NOT DETECTED 11/26/22 19:35 Nasal Coronavir HKU1 PCR NOT DETECTED 11/26/22 19:35 Nasal Coronavir NL63 PCR NOT DETECTED 11/26/22 19:35 Nasal Coronavir OC43 PCR NOT DETECTED 11/26/22 19:35 Nasal Enterovir/Rhinovir PCR NOT DETECTED 11/26/22 19:35 Nasal Influenza B PCR NOT DETECTED 11/26/22 19:35 Nasal Influenza A PCR NOT DETECTED 11/26/22 19:35 Nasal Parainfluen 1 PCR NOT DETECTED 11/26/22 19:35 Nasal Parainfluen 2 PCR NOT DETECTED 11/26/22 19:35 Nasal Parainfluen 3 PCR NOT DETECTED 11/26/22 19:35 Nasal Parainfluen 4 PCR NOT DETECTED 11/26/22 19:35 Nasal RSV (PCR) NOT DETECTED 11/26/22 19:35 Nasal B.pertussis DNA PCR NOT DETECTED 11/26/22 19:35 Nasal C.pneumoniae (PCR) NOT DETECTED 11/26/22 19:35 Tyler Human Metapneumo PCR NOT DETECTED 11/26/22 19:35 Nasal M.pneumoniae (PCR) NOT DETECTED 11/26/22 19:35 Nasal SARS-CoV-2 (PCR) NOT DETECTED 11/26/22 19:35 Stl Occult Blood (IFOB) POSITIVE (NEGATIVE) A 11/29/22 18:30 - Procedures Procedures: Procedures DETACHMENT AT RIGHT LOWER LEG, HIGH, OPEN APPROACH (08/18/17) INSERTION OF INFUSION DEV INTO SUP VENA CAVA, PERC APPROACH (10/03/20) TRANSFUSE NONAUT RED BLOOD CELLS IN PERIPH VEIN, PERC (08/18/17)
[2022-12-04] MEDS: AMPICILLIN 2 GM in SODIUM CHLORIDE 0.9% MINIBAG 100 ML IV SCH ×2 (17:56→23:49)
--- NOTE | 2022-12-04 19:05 | Discharge Plan ---
Discharge Plan Problem Reviewed?: Yes Disposition: 02 Transfer Acute Care Hosp Condition: Fair No Smoking: If you smoke, Please STOP! Call for help.
[2022-12-04] MEDS: DULoxetine 30 MG CAPSULE PO SCH (21:09)
[2022-12-04] MEDS: ATORVASTATIN 10 MG TABLET PO SCH (21:10)
[2022-12-05] MEDS: SODIUM CHLORIDE FLUSH 0.9% 10 ML SYRINGE IVP SCH ×2 (01:09→08:31)
[2022-12-05] MEDS: GABAPENTIN 300 MG CAPSULE PO SCH (05:27)
[2022-12-05] MEDS: AMPICILLIN 2 GM in SODIUM CHLORIDE 0.9% MINIBAG 100 ML IV SCH ×2 (05:27→12:21)
[2022-12-05] MEDS: PANTOPRAZOLE 40 MG TABLET PO SCH (06:34)
[2022-12-05 07:47] VITALS: BP 186/84; O2SAT 97
[2022-12-05] MEDS: DOCUSATE SODIUM 250 MG CAPSULE PO SCH (08:27)
[2022-12-05] MEDS: TAMSULOSIN 0.4 MG CAPSULE PO SCH (08:28)
[2022-12-05] MEDS: LORATADINE 10 MG TABLET PO SCH (08:28)
[2022-12-05] MEDS: carvediloL 12.5 MG TABLET PO SCH (08:28)
[2022-12-05] MEDS: FERROUS GLUCONATE 324 MG TABLET PO SCH (08:28)
[2022-12-05] MEDS: INSULIN GLARGINE-YFGN 300 UNIT/3 ML PEN SUBQ SCH (08:28)
[2022-12-05] MEDS: INSULIN LISPRO 300 UNIT/3 ML PEN SUBQ SCH ×4 (08:29→12:22)
[2022-12-05] MEDS: NYSTATIN CREAM 15 GM TUBE TOP SCH (08:30)
[2022-12-05] MEDS: SENNA 8.6 MG TABLET PO SCH (08:30)
[2022-12-05] MEDS: polyethylene glycoL 3350 17 GM PACKET PO SCH (08:30)
[2022-12-05] MEDS: LIDOCAINE PATCH 5% TOP SCH (08:30)
[2022-12-05] MEDS: HYDROcod/ACETAM 5/325 MG TABLET PO PRN (10:17)
--- NOTE | 2022-12-06 18:28 | DISCHARGE SUMMARY ---
Discharge Summary Admit Date: 11/26/22 Discharge Date: 12/05/22 Discharging Provider: Dr Tiara Machado Primary Care Provider: Dr Valeria Cabrales Condition at Discharge: Fair Discharge Disposition: 02 Transfer Acute Care Hosp - [facility] History of Present Illness: 77 yo M with PMH of HTN, HLD, CAD, PVD, DM 2 with Neuropathy and s/p R BKA d/t Osteomyelitis, CKD, COPD, GERD, Anxiety, Chronic LBP, ETOH abuse, Nephrolithiasis, Recurrent UTIs and BPH presented to the ER with c/o 3 day h/o N/V, Fevers, weakness and s/p Fall today. Pt says that the air quality has worsened d/t the Fires/smoke coming from [facility] and that made him feel nauseated. He began to feel Nauseated 3 days ago, over the weekend. He then began to have vomiting: multiple times, non-bloody. No abdo pain. He had one loose stool yesterday, no BMs today. No dysuria/hematuria noted. +subjective F/C. He felt very weak today. He went to transfer from his bed to his wheelchair, but the wheel feel off his WC and he fell to the floor. He felt too weak to get up, so lied on the floor for 3.5 hours until a tenant found him and got his friend to help him lift the patient up and call EMS. Pt noted no pain/injuries from fall. He has wounds on his LLE for which he sees Wound care every Saturday. He has not seen Urologist in years d/t transportation issues. No CP/SOB/cough. In the ER, Hgb 9.4, Plt 56, Na 133, CR 2.6, Glc 143, AST 6-, CK 2971, Viral Resp panel neg, U/A: lg bld, +LE, WBC, bacteria, UC pending, BC pending. CXR; NAD CT Abdo: L Hydroureteronephrosis, cirrhosis, nephrolithiasis not obstructive Pt was given Unasyn, Hydromorphone in the ER. - HOSPITAL COURSE Hospital Course: (1) Bacteremia due to Streptococcus The 11/26/22 blood culture grew Strep mitis, wth sensitivity to ampicillin, resistant to clindamycin. He was de-escalated to iv Unasyn then changed to iv Ampicillin. After a repeat set of blood cx were neg, he had PICC line insertion done on 11/30. Plan is for a (minimum) 2 week antibx course, or 4-6 weeks if has endocarditis. Nigel he had his Echocardiogram, the report said normal LVEF and moderate aortic stenosis. A vegetation could not be ruled out on a calcified aortic valve. He therefore needed a JOSE. He was accepted in transfer by the Hospitalist at [facility]. The plan is for him to go there to have a JOSE and eventually return here. Then he can be discharged to [facility] for completing the IV antibiotics and having rehab for strengthening. (2) Aortic stenosis He has moderate aortic stenosis as per Echo done 12/04/22. 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 He has been seen at wound clinic for continued redness and swelling of the stump but there is no active infection there according to Wound Clinic. They have however forbade him from using the prosthesis on that stump because of the swelling. This could be a potential source for his Strep bacteremia. (4) Enterococcus UTI The urine cx grew Enterococcus and he received 8 days of antibiotics which cover the Enterococcus, at the time of transfer to [facility]. (5) Acute urinary retention He has a large prostate and had pelvic pain and urinary retention at admission. Mahan was placed, and he wants it left in. He will need outpatient Urology management (6) DM Type 2 He was taking Lantus 100 units in a.m. and 50 units in p.m. at home. His A1c came back at 7.8. Here he is only needed long-acting insulin 5 units BID, plus 5 units short acting with meals. This suggest that he was eating a lot of sweets and starches to need such high amounts of Lantus at home (7) Chronic anemia He is chronically anemic at 9.0-9.7. B12 was normal at 746. Folate was greater than 44.6. Iron is low at 15, transferrin 189.He was started on empiric Protonix, and p.o. iron. His fecal occult blood stool result was positive. (8) Acute on chronic kidney failure Creat at adm was 3, felt to be secondary to rhabdomyolysis on top of CKD. Creat then improved to 1.7 (9) Alcoholic cirrhosis of liver without ascites He has a history of alcohol abuse. AST was elevated, and he has thrombocytopeni a. He denied current ongoing alcohol abuse. (10) LBP This pain predated this admission. Lidocaine patch and p.o. oxycodone did not control the pain and po Dilaudid was added sparingly. The pain is worsened by the fact that he is hardly OOB during the day, just dangles when PT works with him. (11) Rhabdomyolysis He fell at home and layed there for prolonged period of time. His CK level trended down daily after several days of iv hydration. IV fluids were stopped on 11/29. PT started working with him. He knows he will need PT and OT rehab after the JOSE and return here, since he wants to return home, said he refuses to live in a long-term senior care. I asked him, and daughter at bedside, to start planning ahead for needing caregiving in his home, since he only transfers from bed to wheelchair. - ALLERGIES Allergies/Adverse Reactions: Allergies Allergy/AdvReac Type Severity Reaction Status Date / Time pregabalin [From Lyrica] Allergy Intermediate unknown Verified 09/10/22 17:10 simvastatin [From Zocor] Allergy Intermediate Nausea Verified 11/26/22 19:08 sulfamethoxazole Allergy Intermediate unknown Verified 11/26/22 19:08 [From Septra] trimethoprim [From Septra] Allergy Intermediate unknown Verified 11/26/22 19:08 tetracycline [Tetracycline] Allergy Rash Verified 11/26/22 19:08 - MEDICATIONS Home Medications: Ambulatory Orders Medication Instructions Recorded Confirmed Loratadine 10 mg PO DAILY 11/07/12 11/27/22 Atorvastatin [Lipitor] 40 mg PO DAILY PM #30 08/26/17 11/27/22 carvediloL [Coreg] 25 mg PO BID #60 08/26/17 11/27/22 Furosemide 40 mg PO BID 12/30/17 11/27/22 Gabapentin [Neurontin] 300 mg PO TID 06/01/18 11/27/22 Losartan [Cozaar] 50 mg PO DAILY 06/01/18 11/27/22 Insulin Glargine [Lantus Solostar] 100 unit SUBQ QDBREAKFAST 10/02/20 11/27/22 Tamsulosin [Flomax] 0.4 mg PO DAILY 30 Days #30 cap 10/02/20 11/27/22 Insulin Glargine [Lantus Solostar] 50 units SUBQ QPM 11/27/22 11/27/22 - PHYSICAL EXAM AT DISCHARGE General Appearance: positive: No acute distress, Alert Eyes Bilateral: positive: Normal inspection ENT: positive: No signs of dehydration, Other (Poor dentition) Neck: positive: Nml inspection, No JVD Respiratory: positive: No respiratory distress, Breath sounds nml Cardiovascular: positive: Regular rate & rhythm (Distant heart sounds due to obesity) Abdomen: positive: Non-tender, Other (Obese with a pannus) Skin: positive: Warm, Dry Extremities: positive: Other (Right BKA stump is red and swollen but not tender. Left leg has venous stasis changes and the vera is wrapped and there is 1+ pedal edema.) Neurologic/Psychiatric: positive: Oriented x3, Motor nml - LABS Result Diagrams: 12/04/22 05:20 12/04/22 05:20 - DIAGNOSTIC IMAGING Diagnostic Imaging Results: Final report reviewed - TIME SPENT Time Spent in Discharge (Minutes): 45
== END 2022-12-05 12:10 | disposition short-term general hospital (02) | DRG 690 ==
LOC: EDUNIT# → ED 18:59 → MS2 23:49
PROVIDERS: ADMIT Internal Medicine; ATTEND Internal Medicine
PROC: 02H633Z Insertion of Infusion Device into Right Atrium, Percutaneous Approach (ICD-10-PCS; principal; 2022-11-30)
DX: N13.6 Pyonephrosis (principal); Z16.29 Resistance to other single specified antibiotic; R78.81 Bacteremia; M62.82 Rhabdomyolysis; E87.1 Hypo-osmolality and hyponatremia; L97.821 Non-pressure chronic ulcer of other part of left lower leg limited to breakdown of skin; E11.22 Type 2 diabetes mellitus with diabetic chronic kidney disease; N17.9 Acute kidney failure, unspecified; N39.0 Urinary tract infection, site not specified; N40.0 Benign prostatic hyperplasia without lower urinary tract symptoms; I12.9 Hypertensive chronic kidney disease with stage 1 through stage 4 chronic kidney disease, or unspecified chronic kidney disease; K74.60 Unspecified cirrhosis of liver; E78.5 Hyperlipidemia, unspecified; I25.10 Atherosclerotic heart disease of native coronary artery without angina pectoris; E11.51 Type 2 diabetes mellitus with diabetic peripheral angiopathy without gangrene; E11.40 Type 2 diabetes mellitus with diabetic neuropathy, unspecified; N18.9 Chronic kidney disease, unspecified; J44.9 Chronic obstructive pulmonary disease, unspecified; K21.9 Gastro-esophageal reflux disease without esophagitis; Z20.822 Contact with and (suspected) exposure to COVID-19; F41.9 Anxiety disorder, unspecified; G89.29 Other chronic pain; M54.50 Low back pain, unspecified; I35.0 Nonrheumatic aortic (valve) stenosis; N40.1 Benign prostatic hyperplasia with lower urinary tract symptoms; R33.8 Other retention of urine; R19.5 Other fecal abnormalities; D63.1 Anemia in chronic kidney disease; K70.30 Alcoholic cirrhosis of liver without ascites; R74.01 Elevation of levels of liver transaminase levels; E66.9 Obesity, unspecified; E86.0 Dehydration; D69.6 Thrombocytopenia, unspecified; R39.15 Urgency of urination; R35.0 Frequency of micturition; B37.2 Candidiasis of skin and nail; E11.628 Type 2 diabetes mellitus with other skin complications; Z68.37 Body mass index [BMI] 37.0-37.9, adult; Z79.4 Long term (current) use of insulin; Z79.899 Other long term (current) drug therapy; Z82.49 Family history of ischemic heart disease and other diseases of the circulatory system; Z83.3 Family history of diabetes mellitus; Z87.891 Personal history of nicotine dependence; Z87.898 Personal history of other specified conditions; Z88.1 Allergy status to other antibiotic agents; Z88.2 Allergy status to sulfonamides; Z88.8 Allergy status to other drugs, medicaments and biological substances; Z89.511 Acquired absence of right leg below knee; Z91.81 History of falling
CPT/HCPCS: 36415; 71045; 74176; 80048; 80053; 80076; 81001; 82274; 82550; 82607; 82746; 83036; 83540; 83605; 84466; 85025; 85610; 87040; 87077; 87086; 87150; 87181; 87633; 93306; 96365; 96375; 97110; 97162; 97166; 97530; 99284; 99285; A9270; J1170; J1750; J1815

== ENCOUNTER 2022-12-19 08:00 | Outpatient (CLI) | payer MEDICARE, OTHER ==
[2022-12-19 23:30] LABS: BASOPHILS % (AUTO) 0.5 %; EOSINOPHILS # (AUTO) 0.1 10^3/uL (0.0-0.7); EOSINOPHILS % (AUTO) 2.4 %; HCT - HEMATOCRIT 30.8 % (42.0-52.0); HGB - HEMOGLOBIN 9.8 g/dL (14.0-18.0); LYMPHOCYTES # (AUTO) 1.3 10^3/uL (1.5-3.5); LYMPHOCYTES % (AUTO) 21.4 %; MEAN CORPUSCULAR HEMOGLOBIN 28.7 pg (27.0-31.0); MEAN CORPUSCULAR HGB CONC 31.8 g/dL (32.0-36.0); MEAN CORPUSCULAR VOLUME 90.1 fL (80.0-94.0); MEAN PLATELET VOLUME 10.3 fL (7.4-11.4); MONOCYTES # (AUTO) 0.5 10^3/uL (0.0-1.0); MONOCYTES % (AUTO) 8.8 %; NEUTROPHILS # (AUTO) 3.9 10^3/uL (1.5-6.6); NEUTROPHILS % (AUTO) 66.2 %; PLT - PLATELET COUNT 81 10^3/uL (130-450); RED BLOOD COUNT 3.42 10^6/uL (4.70-6.10); RED CELL DISTRIBUTION WIDTH 16.4 % (12.0-15.0); WHITE BLOOD COUNT 5.9 x10^3/uL (4.8-10.8)
[2022-12-19 23:39] LABS: CALCIUM 8.8 mg/dL (8.5-10.3); CREATININE 1.8 mg/dL (0.6-1.3); POTASSIUM 3.9 mmol/L (3.5-4.5)
[2022-12-20 15:25] LABS: ESTIMATED AVERAGE GLUCOSE 154 mg/dL (70-100)
== END 2022-12-19 23:59 | disposition home or self-care (01) ==
LOC: LAB.R 08:00
PROVIDERS: ATTEND Registered Nurse
DX: E11.22 Type 2 diabetes mellitus with diabetic chronic kidney disease (principal); N18.30 Chronic kidney disease, stage 3 unspecified; B95.4 Other streptococcus as the cause of diseases classified elsewhere
CPT/HCPCS: 80048; 82140; 83036; 85025

== ENCOUNTER 2022-12-20 00:03 | Outpatient (CLI) | payer MEDICARE, OTHER | END 2022-12-20 23:59 | disposition home or self-care (01) | LOC: LAB.R 00:03 | PROVIDERS: ATTEND Registered Nurse | DX: J44.9 Chronic obstructive pulmonary disease, unspecified (principal) | CPT/HCPCS: 80048; 82140; 83036; 85025 ==

== ENCOUNTER 2023-01-03 08:00 | Outpatient (CLI) | payer MEDICARE, OTHER ==
[2023-01-03 13:04] LABS: BASOPHILS % (AUTO) 0.9 %; EOSINOPHILS # (AUTO) 0.2 10^3/uL (0.0-0.7); EOSINOPHILS % (AUTO) 5.3 %; HCT - HEMATOCRIT 30.1 % (42.0-52.0); HGB - HEMOGLOBIN 9.4 g/dL (14.0-18.0); LYMPHOCYTES % (AUTO) 29.6 %; MEAN CORPUSCULAR HEMOGLOBIN 28.7 pg (27.0-31.0); MEAN CORPUSCULAR HGB CONC 31.2 g/dL (32.0-36.0); MEAN PLATELET VOLUME 11.3 fL (7.4-11.4); MONOCYTES # (AUTO) 0.3 10^3/uL (0.0-1.0); MONOCYTES % (AUTO) 8.1 %; NEUTROPHILS # (AUTO) 1.8 10^3/uL (1.5-6.6); NEUTROPHILS % (AUTO) 55.8 %; PLT - PLATELET COUNT 68 10^3/uL (130-450); RED BLOOD COUNT 3.27 10^6/uL (4.70-6.10); RED CELL DISTRIBUTION WIDTH 15.4 % (12.0-15.0); WHITE BLOOD COUNT 3.2 x10^3/uL (4.8-10.8)
[2023-01-03 13:06] LABS: BILIRUBIN,URINE NEGATIVE (NEGATIVE); GLUCOSE, URINE (UA) NEGATIVE (NEGATIVE); KETONES,URINE (UA) NEGATIVE (NEGATIVE); LEUKOCYTE ESTERASE, URINE NEGATIVE (NEGATIVE); NITRITE,URINE NEGATIVE (NEGATIVE); OCCULT BLOOD,URINE NEGATIVE (NEGATIVE); PROTEIN,URINE 100 mg/dL (NEGATIVE); UROBILINOGEN,URINE 0.2 (NORMAL) E.U./dL (NORMAL)
[2023-01-03 13:29] LABS: ALBUMIN/GLOBULIN RATIO 0.9 (1.0-2.2); BILIRUBIN,TOTAL 0.4 mg/dL (0.2-1.0); CALCIUM 8.8 mg/dL (8.5-10.3); CREATININE 1.7 mg/dL (0.6-1.3); POTASSIUM 4.2 mmol/L (3.5-4.5); TOTAL PROTEIN 6.3 g/dL (6.4-8.9)
[2023-01-03 14:20] LABS: AMORPHOUS SEDIMENT,UR Moderate /LPF; BACTERIA,URINE Few /HPF (None Seen); CLARITY,URINE CLEAR (CLEAR); RBC,URINE 0-5 /HPF (0-5); SQUAMOUS EPITHELIAL CELL,UR RARE Squamous (<= Few); WBC CLUMPS,URINE PRESENT
== END 2023-01-03 23:59 | disposition home or self-care (01) ==
LOC: LAB.R 08:00
PROVIDERS: ATTEND Registered Nurse
DX: N17.9 Acute kidney failure, unspecified (principal); I12.9 Hypertensive chronic kidney disease with stage 1 through stage 4 chronic kidney disease, or unspecified chronic kidney disease; N18.30 Chronic kidney disease, stage 3 unspecified; R33.8 Other retention of urine
CPT/HCPCS: 80053; 81001; 85025; 87086

== ENCOUNTER 2023-01-03 13:45 | Outpatient (CLI) | payer MEDICARE, OTHER ==
--- NOTE | 2023-01-04 08:50 | XRAY Report ---
PROCEDURE: Abdomen 1 View X-Ray INDICATIONS: UNSPECIFIED ABDOMINAL PAIN TECHNIQUE: One view of the abdomen acquired. COMPARISON: CT abdomen and pelvis, 11/18/2022. FINDINGS: Surgical changes and devices: Cholecystectomy clips are noted. Bowel: Bowel gas pattern is nonspecific. There is a large amount of stool in colon. Soft tissues: No suspicious abdominal calcifications. Visualized solid organ contours appear normal in size. Bones: No suspicious bony lesions. Moderate degenerative disc disease in lower lumbar spine. IMPRESSION: Nonspecific bowel gas pattern and a large amount of stool in colon. Reviewed by: Bisi Whittington MD on 01/04/2023 8:49 AM PDT Approved by: Bisi Whittington MD on 01/04/2023 8:49 AM PDT Station ID: [id number]
== END 2023-01-03 13:46 | disposition home or self-care (01) ==
LOC: DI 13:45
PROVIDERS: ATTEND Registered Nurse
DX: R10.9 Unspecified abdominal pain (principal); N17.9 Acute kidney failure, unspecified; I12.9 Hypertensive chronic kidney disease with stage 1 through stage 4 chronic kidney disease, or unspecified chronic kidney disease; N18.30 Chronic kidney disease, stage 3 unspecified; R33.8 Other retention of urine
CPT/HCPCS: 80053; 81001; 85025; 87086

== ENCOUNTER 2023-01-10 08:00 | Outpatient (CLI) | payer MEDICARE, OTHER ==
[2023-01-10 23:20] LABS: BILIRUBIN,URINE NEGATIVE (NEGATIVE); GLUCOSE, URINE (UA) 250 mg/dL (NEGATIVE); KETONES,URINE (UA) NEGATIVE (NEGATIVE); LEUKOCYTE ESTERASE, URINE SMALL (NEGATIVE); NITRITE,URINE NEGATIVE (NEGATIVE); OCCULT BLOOD,URINE TRACE-INTA (NEGATIVE); PH,URINE 6.5 PH (5.0-7.5); PROTEIN,URINE 30 mg/dL (NEGATIVE); UROBILINOGEN,URINE 0.2 (NORMAL) E.U./dL (NORMAL)
[2023-01-10 23:34] LABS: CLARITY,URINE CLEAR (CLEAR)
[2023-01-10 23:35] LABS: BACTERIA,URINE Rare /HPF (None Seen); RBC,URINE 0-5 /HPF (0-5); SQUAMOUS EPITHELIAL CELL,UR NONE SEEN (<= Few); WBC CLUMPS,URINE PRESENT
== END 2023-01-10 23:59 | disposition home or self-care (01) ==
LOC: LAB.R 08:00
PROVIDERS: ATTEND Registered Nurse
DX: N40.1 Benign prostatic hyperplasia with lower urinary tract symptoms (principal); N17.9 Acute kidney failure, unspecified; I10 Essential (primary) hypertension; D50.9 Iron deficiency anemia, unspecified; L97.821 Non-pressure chronic ulcer of other part of left lower leg limited to breakdown of skin; D69.6 Thrombocytopenia, unspecified
CPT/HCPCS: 80053; 81001; 81003; 85025; 87040

== ENCOUNTER 2023-01-10 14:55 | Outpatient (CLI) | payer MEDICARE, OTHER ==
[2023-01-10 15:04] LABS: BASOPHILS % (AUTO) 1.2 %; EOSINOPHILS # (AUTO) 0.2 10^3/uL (0.0-0.7); EOSINOPHILS % (AUTO) 6.3 %; HCT - HEMATOCRIT 31.3 % (42.0-52.0); HGB - HEMOGLOBIN 10.1 g/dL (14.0-18.0); LYMPHOCYTES # (AUTO) 0.9 10^3/uL (1.5-3.5); LYMPHOCYTES % (AUTO) 26.5 %; MEAN CORPUSCULAR HEMOGLOBIN 28.9 pg (27.0-31.0); MEAN CORPUSCULAR HGB CONC 32.3 g/dL (32.0-36.0); MEAN CORPUSCULAR VOLUME 89.7 fL (80.0-94.0); MEAN PLATELET VOLUME 10.6 fL (7.4-11.4); MONOCYTES # (AUTO) 0.3 10^3/uL (0.0-1.0); MONOCYTES % (AUTO) 10.2 %; NEUTROPHILS # (AUTO) 1.8 10^3/uL (1.5-6.6); NEUTROPHILS % (AUTO) 55.5 %; PLT - PLATELET COUNT 103 10^3/uL (130-450); RED BLOOD COUNT 3.49 10^6/uL (4.70-6.10); RED CELL DISTRIBUTION WIDTH 15.2 % (12.0-15.0); WHITE BLOOD COUNT 3.3 x10^3/uL (4.8-10.8)
[2023-01-10 15:50] LABS: ALBUMIN 3.2 g/dL (3.2-5.5); ALBUMIN/GLOBULIN RATIO 0.9 (1.0-2.2); BILIRUBIN,TOTAL 0.4 mg/dL (0.2-1.0); POTASSIUM 4.4 mmol/L (3.5-4.5); TOTAL PROTEIN 6.7 g/dL (6.4-8.9)
== END 2023-01-10 14:56 | disposition home or self-care (01) ==
LOC: LAB.R 14:55
PROVIDERS: ATTEND Registered Nurse
DX: I10 Essential (primary) hypertension (principal); D50.9 Iron deficiency anemia, unspecified; L97.821 Non-pressure chronic ulcer of other part of left lower leg limited to breakdown of skin; D69.6 Thrombocytopenia, unspecified
CPT/HCPCS: 80053; 85025; 87040

== ENCOUNTER 2023-01-18 18:27 | Outpatient (CLI) | payer MEDICARE, OTHER | END 2023-01-18 18:28 | disposition critical access hospital (66) | LOC: EMS 18:27 | DX: K92.1 Melena (principal) | CPT/HCPCS: A0425; A0429 ==

== ENCOUNTER 2023-01-18 18:35 | Emergency (ER) | payer MEDICARE, OTHER ==
[2023-01-18 18:42] VITALS: O2SAT 100
[2023-01-18] MEDS ORDERED: HYDROmorphone 1 MG/ML CARPUJECT IM STA (18:47)
--- NOTE | 2023-01-18 18:50 | ED Physician Documentation ---
PD HPI ABD PAIN - Stated complaint Stated Complaint: GI - Chief complaint Chief Complaint: Abd Pain - History obtained from History obtained from: Patient - Additional information Additional information: 77-year-old gentleman with chronic debilitation and in a assisted. He was discharged to [facility] about a month and a half ago for aortic stenosis, moderate and I think concern for endocarditis as he had strep bacteremia. At [facility], for reasons not quite clear to me on initial evaluations they did a colonoscopy and he was found of colon cancer. He does not know the details or the stage. S lyric that time he had bilateral flank pain and today had red blood per rectum. No increase in his abdominal pain today. No prior bleeding. PD PAST MEDICAL HISTORY - Past Medical History Past Medical History: Yes Cardiovascular: Hypertension, High cholesterol, Coronary artery disease, Peripheral Vascular Disease, [place] Respiratory: COPD, Shortness of breath Neuro: Peripheral neuropathy Endocrine/Autoimmune: Type 2 diabetes GI: GERD : Nocturia, Frequency, Kidney stones Psych: Anxiety, Panic attacks Musculoskeletal: Fibromyalgia, Chronic back pain - Past Surgical History Past Surgical History: Yes Ortho: Amputation Cardiovascular: Coronary stent HEENT: Cataracts - Present Medications Home Medications: Ambulatory Orders Medication Instructions Recorded Confirmed Loratadine 10 mg PO DAILY 11/07/12 11/27/22 Atorvastatin [Lipitor] 40 mg PO DAILY PM #30 08/26/17 11/27/22 carvediloL [Coreg] 25 mg PO BID #60 08/26/17 11/27/22 Furosemide 40 mg PO BID 12/30/17 11/27/22 Gabapentin [Neurontin] 300 mg PO TID 06/01/18 11/27/22 Losartan [Cozaar] 50 mg PO DAILY 06/01/18 11/27/22 Insulin Glargine [Lantus Solostar] 100 unit SUBQ QDBREAKFAST 10/02/20 11/27/22 Tamsulosin [Flomax] 0.4 mg PO DAILY 30 Days #30 cap 10/02/20 11/27/22 Insulin Glargine [Lantus Solostar] 50 units SUBQ QPM 11/27/22 11/27/22 - Allergies Allergies/Adverse Reactions: Allergies Allergy/AdvReac Type Severity Reaction Status Date / Time pregabalin [From Lyrica] Allergy Intermediate unknown Verified 01/18/23 18:38 simvastatin [From Zocor] Allergy Intermediate Nausea Verified 01/18/23 18:38 sulfamethoxazole Allergy Intermediate unknown Verified 01/18/23 18:38 [From Novra] trimethoprim [From Septra] Allergy Intermediate unknown Verified 01/18/23 18:38 tetracycline [Tetracycline] Allergy Rash Verified 01/18/23 18:38 - Social History Does the pt smoke?: No Smoking Status: Never smoker Does the pt drink ETOH?: Yes Does the pt have substance abuse?: Yes - Immunizations Immunizations are current?: Yes - POLST Patient has POLST: No POLST Status: Full Code PD ED PE NORMAL - Vitals Vital signs reviewed: Yes - General General: Alert and oriented X 3, No acute distress - Abdomen Abdomen: Normal bowel sounds, Soft, Non tender - Rectal Rectal: Other (Rectal exam with green-brown stool, no blood) - Neuro Neuro: Alert and oriented X 3, Normal speech Results - Vitals Vitals: Vital Signs - 24 hr 01/18/23 01/18/23 18:38 18:40 Temperature 36.5 C 36.5 C Heart Rate 65 65 Respiratory 16 16 Rate Blood Pressure 132/63 H 132/63 H O2 Saturation 100 100 Oxygen O2 Source Room air - Labs Labs: Laboratory Tests 01/18/23 01/18/23 18:52 18:52 WBC 4.9 RBC 3.66 L Hgb 10.3 L Hct 32.4 L MCV 88.5 MCH 28.1 MCHC 31.8 L RDW 14.4 Plt Count 92 L MPV 9.8 Neut # (Auto) 3.1 Lymph # (Auto) 1.2 L [place] # (Auto) 0.5 Eos # (Auto) 0.2 Baso # (Auto) 0.1 Absolute Nucleated RBC 0.00 Nucleated RBC % 0.0 Sodium 135 Potassium 4.3 Chloride 104 Carbon Dioxide 24 Anion Gap 7.0 BUN 36 H Creatinine 1.7 H Estimated GFR (MDRD) 39 L Glucose 264 H Calcium 8.9 Total Bilirubin 0.4 AST 29 ALT 40 Alkaline Phosphatase 164 H Total Protein 6.6 Albumin 3.3 Globulin 3.3 Albumin/Globulin Ratio 1.0 Lipase 28 PD Medical Decision Making - ED course ED course: CBC showing anemia, but it is at his baseline, actually slightly better than it was a week ago. CMP showing chronic renal insufficiency and hyperglycemia. There is no blood in his stool on my examination, he has a known source of bloody stool which is colon cancer of unclear stage. He is at a local assisted only a few blocks from the hospital and so will be closely observed there. Patient quite frustrated by everything has been going through in the last few months and I empathized with him. Departure - Departure Disposition: Home, Self Care Clinical Impression: Lower GI bleeding Condition: Good Record reviewed to determine appropriate education?: Yes Instructions: ED Hematochezia Stable Comments: At this point there is no blood in the stool and no evidence of active bleeding. His blood counts are similar to prior. He should follow-up as scheduled for cancer care and return for new or worsening symptoms. Forms: PCP List
[2023-01-18 18:58] LABS: BASOPHILS # (AUTO) 0.1 10^3/uL (0.0-0.1); EOSINOPHILS # (AUTO) 0.2 10^3/uL (0.0-0.7); EOSINOPHILS % (AUTO) 3.2 %; HCT - HEMATOCRIT 32.4 % (42.0-52.0); HGB - HEMOGLOBIN 10.3 g/dL (14.0-18.0); LYMPHOCYTES # (AUTO) 1.2 10^3/uL (1.5-3.5); LYMPHOCYTES % (AUTO) 23.9 %; MEAN CORPUSCULAR HEMOGLOBIN 28.1 pg (27.0-31.0); MEAN CORPUSCULAR HGB CONC 31.8 g/dL (32.0-36.0); MEAN CORPUSCULAR VOLUME 88.5 fL (80.0-94.0); MEAN PLATELET VOLUME 9.8 fL (7.4-11.4); MONOCYTES # (AUTO) 0.5 10^3/uL (0.0-1.0); MONOCYTES % (AUTO) 9.5 %; NEUTROPHILS # (AUTO) 3.1 10^3/uL (1.5-6.6); PLT - PLATELET COUNT 92 10^3/uL (130-450); RED BLOOD COUNT 3.66 10^6/uL (4.70-6.10); RED CELL DISTRIBUTION WIDTH 14.4 % (12.0-15.0); WHITE BLOOD COUNT 4.9 x10^3/uL (4.8-10.8)
[2023-01-18 19:13] LABS: ALBUMIN 3.3 g/dL (3.2-5.5); BILIRUBIN,TOTAL 0.4 mg/dL (0.2-1.0); CALCIUM 8.9 mg/dL (8.5-10.3); CREATININE 1.7 mg/dL (0.6-1.3); POTASSIUM 4.3 mmol/L (3.5-4.5); TOTAL PROTEIN 6.6 g/dL (6.4-8.9)
[2023-01-18 20:22] VITALS: BP 126/60
== END 2023-01-18 20:15 | disposition home or self-care (01) ==
LOC: EDUNIT# → ED 18:35
DX: R10.9 Unspecified abdominal pain (principal); K92.2 Gastrointestinal hemorrhage, unspecified; C18.9 Malignant neoplasm of colon, unspecified
CPT/HCPCS: 36415; 80053; 83690; 85025; 99283; J1170

== ENCOUNTER 2023-01-18 20:16 | Outpatient (CLI) | payer MEDICARE, OTHER | END 2023-01-18 20:17 | LOC: EMS 20:16 | PROVIDERS: ATTEND Emergency Medicine | DX: R53.1 Weakness (principal); G82.50 Quadriplegia, unspecified | CPT/HCPCS: A0425; A0428 ==

== ENCOUNTER 2023-02-04 11:39 | Outpatient (CLI) | payer MEDICARE, OTHER | END 2023-02-04 11:40 | disposition critical access hospital (66) | LOC: EMS 11:39 | DX: R19.5 Other fecal abnormalities (principal) | CPT/HCPCS: A0425; A0429 ==

== ENCOUNTER 2023-02-04 11:46 | Emergency (ER) | payer MEDICARE, OTHER ==
--- NOTE | 2023-02-04 12:37 | ED Physician Documentation ---
History of Present Illness - Stated complaint Stated Complaint: BLOOD IN STOOL - Chief complaint Chief Complaint: Abd Pain - Additonal information Additional information: 77-year-old male was brought to the emergency department from his care facility for evaluation of rectal bleeding that was noted this AM. Patient is a poor historian. Tells me simply to contact his doctors at [facility]. In review of the [facility] care records I see that the patient has a history of cirrhosis, type 2 diabetes, hypertension, hyperlipidemia, possible coronary artery disease. He was recently hospitalized for strep mitis bacteremia, Enterococcus faecalis UTI, pyelo. In discussion with the infectious disease team it was not clear with the patient's source of the bacteremia was however he did complete a lengthy course of IV and oral antibiotics (stop date 12/25/2022). The recommendation was for him to get follow-up blood cultures within the first 2 weeks of December. While hospitalized he was found to have severe aortic stenosis and colon cancer. In review of the [facility] notes a discussion with Dr. Lechuga (colorectal surgery) showed that the patient had a poor prognosis and was BAV only. However there was a question about setting the patient up for colorectal surgery once he completed antibiotics for sepsis and had clearance from ID. However he would need the aortic stenosis addressed (?TAVR) before undergoing colorectal surgery. In review of the patient's chart medications I see that the patient is not anticoagulated. On presentation to the emergency department I am greeted by a gentleman who is alert and appropriate. He is afebrile. Heart rate 59. Blood pressure 146/104. Adequate peripheral pulses. He appears to be in no acute distress. He does report chronic left-sided abdominal pain which is not new. Review of Systems Throat: reports: Reviewed and negative Cardiac: reports: Reviewed and negative GI: reports: Abdominal Pain, Bloody / black stool : reports: Reviewed and negative Skin: reports: Reviewed and negative Musculoskeletal: reports: Reviewed and negative PD PAST MEDICAL HISTORY - Past Medical History Past Medical History: Yes Cardiovascular: Hypertension, High cholesterol, Coronary artery disease, Peripheral Vascular Disease, [place] Respiratory: COPD, Shortness of breath Neuro: Peripheral neuropathy Endocrine/Autoimmune: Type 2 diabetes GI: GERD : Nocturia, Frequency, Kidney stones Psych: Anxiety, Panic attacks Musculoskeletal: Fibromyalgia, Chronic back pain - Past Surgical History Past Surgical History: Yes Ortho: Amputation Cardiovascular: Coronary stent HEENT: Cataracts - Present Medications Home Medications: Ambulatory Orders Medication Instructions Recorded Confirmed Loratadine 10 mg PO DAILY 11/07/12 11/27/22 Atorvastatin [Lipitor] 40 mg PO DAILY PM #30 08/26/17 11/27/22 carvediloL [Coreg] 25 mg PO BID #60 08/26/17 11/27/22 Furosemide 40 mg PO BID 12/30/17 11/27/22 Gabapentin [Neurontin] 300 mg PO TID 06/01/18 11/27/22 Losartan [Cozaar] 50 mg PO DAILY 06/01/18 11/27/22 Insulin Glargine [Lantus Solostar] 100 unit SUBQ QDBREAKFAST 10/02/20 11/27/22 Tamsulosin [Flomax] 0.4 mg PO DAILY 30 Days #30 cap 10/02/20 11/27/22 Insulin Glargine [Lantus Solostar] 50 units SUBQ QPM 11/27/22 11/27/22 - Allergies Allergies/Adverse Reactions: Allergies Allergy/AdvReac Type Severity Reaction Status Date / Time pregabalin [From Lyrica] Allergy Intermediate unknown Verified 02/04/23 11:57 simvastatin [From Zocor] Allergy Intermediate Nausea Verified 02/04/23 11:57 sulfamethoxazole Allergy Intermediate unknown Verified 02/04/23 11:57 [From Septra] trimethoprim [From Septra] Allergy Intermediate unknown Verified 02/04/23 11:57 tetracycline [Tetracycline] Allergy Rash Verified 02/04/23 11:57 - Social History Does the pt smoke?: No Smoking Status: Never smoker Does the pt drink ETOH?: Yes Does the pt have substance abuse?: Yes - Immunizations Immunizations are current?: Yes - POLST Patient has POLST: No POLST Status: Full Code PD ED PE NORMAL - General General: Alert and oriented X 3, No acute distress. No: Well developed/nourished (obese) - HEENT HEENT: Atraumatic - Neck Neck: Supple, no meningeal sign - Cardiac Cardiac: RRR. No: No murmur (severe systolic murmur) - Respiratory Respiratory: No respiratory distress, Clear bilaterally - Abdomen Abdomen: Normal bowel sounds, Soft. No: Non tender (tenderness LLQ, left flank) - Male Male : Expressive Therapist present (Aldair ROSE mgmt consultant present. Digital rectal exam revealed corey hematochezia) - Back Back: No CVA TTP - Derm Derm: Normal color, Warm and dry - Extremities Extremities: No deformity - Neuro Neuro: Alert and oriented X 3, rabbler 2-12 intact Eye Opening: Spontaneous Motor: Obeys Commands Verbal: Oriented GCS Score: 15 Results - Vitals Vitals: Vital Signs - 24 hr 02/04/23 02/04/23 02/04/23 11:54 13:56 15:00 Temperature 36.7 C 36.8 C Heart Rate 59 L 58 L 54 L Respiratory 16 18 16 Rate Blood Pressure 146/104 H 144/73 H 131/63 H O2 Saturation 97 96 96 02/04/23 17:00 Temperature 36.5 C Heart Rate 60 Respiratory 16 Rate Blood Pressure 130/60 O2 Saturation 98 Oxygen O2 Source Room air - Labs Labs: Microbiology 02/04/23 12:20 Occult Blood - Final Stool Laboratory Tests 02/04/23 02/04/23 02/04/23 12:38 12:38 12:38 WBC 5.0 RBC 3.55 L Hgb 10.0 L Hct 31.3 L MCV 88.2 MCH 28.2 MCHC 31.9 L RDW 14.0 Plt Count 87 L MPV 10.0 Neut # (Auto) 2.8 Lymph # (Auto) 1.3 L [place] # (Auto) 0.6 Eos # (Auto) 0.2 Baso # (Auto) 0.0 Absolute Nucleated RBC 0.00 Nucleated RBC % 0.0 PT 13.4 H INR 1.2 Sodium 135 Potassium 4.2 Chloride 106 Carbon Dioxide 24 Anion Gap 5.0 L BUN 44 H Creatinine 1.9 H Estimated GFR (MDRD) 34 L Glucose 216 H Calcium 8.7 Total Bilirubin 0.5 AST 23 ALT 31 Alkaline Phosphatase 151 H Total Protein 7.2 Albumin 3.2 Globulin 4.0 Albumin/Globulin Ratio 0.8 L Lipase 16 Urine Color Urine Clarity Urine pH Ur Specific [place] Urine Protein Urine Glucose (UA) Urine Ketones Urine Occult Blood Urine Nitrite Urine Bilirubin Urine Urobilinogen Ur Leukocyte Esterase Urine RBC Urine WBC Ur Epithelial Cells Ur Squamous Epith Cells Urine Bacteria Ur Microscopic Review Urine Culture Comments Blood Type Antibody Screen 02/04/23 02/04/23 02/04/23 13:25 14:56 15:16 WBC RBC Hgb 10.2 L Hct 32.1 L MCV MCH MCHC RDW Plt Count MPV Neut # (Auto) Lymph # (Auto) [place] # (Auto) Eos # (Auto) Baso # (Auto) Absolute Nucleated RBC Nucleated RBC % PT INR Sodium Potassium Chloride Carbon Dioxide Anion Gap BUN Creatinine Estimated GFR (MDRD) Glucose Calcium Total Bilirubin AST ALT Alkaline Phosphatase Total Protein Albumin Globulin Albumin/Globulin Ratio Lipase Urine Color YELLOW Urine Clarity HAZY Urine pH 6.0 Ur Specific [place] 1.010 Urine Protein 30 H Urine Glucose (UA) NEGATIVE Urine Ketones NEGATIVE Urine Occult Blood NEGATIVE Urine Nitrite NEGATIVE Urine Bilirubin NEGATIVE Urine Urobilinogen 0.2 (NORMAL) Ur Leukocyte Esterase SMALL H Urine RBC 0-5 Urine WBC >25 H Ur Epithelial Cells FEW Transitional Ur Squamous Epith Cells RARE Squamous Urine Bacteria Rare Ur Microscopic Review INDICATED Urine Culture Comments INDICATED Blood Type A POSITIVE Antibody Screen NEGATIVE 02/04/23 17:56 WBC 5.3 RBC 3.81 L Hgb 10.8 L Hct 33.7 L MCV 88.5 MCH 28.3 MCHC 32.0 RDW 14.1 Plt Count 95 L MPV 10.1 Neut # (Auto) Lymph # (Auto) [place] # (Auto) Eos # (Auto) Baso # (Auto) Absolute Nucleated RBC Nucleated RBC % PT INR Sodium Potassium Chloride Carbon Dioxide Anion Gap BUN Creatinine Estimated GFR (MDRD) Glucose Calcium Total Bilirubin AST ALT Alkaline Phosphatase Total Protein Albumin Globulin Albumin/Globulin Ratio Lipase Urine Color Urine Clarity Urine pH Ur Specific [place] Urine Protein Urine Glucose (UA) Urine Ketones Urine Occult Blood Urine Nitrite Urine Bilirubin Urine Urobilinogen Ur Leukocyte Esterase Urine RBC Urine WBC Ur Epithelial Cells Ur Squamous Epith Cells Urine Bacteria Ur Microscopic Review Urine Culture Comments Blood Type Antibody Screen PD Medical Decision Making - ED course Complexity details: reviewed results, re-evaluated patient, considered differential, d/w patient ED course: 1400: 77-year-old male who has a past medical history that is fairly extensive including hypertension diabetes, hyperlipidemia known renal nephroliths as well as recent finding of bacteremia and urinary tract infection pyelonephritis who completed a long hospitalization at [facility] at which time a colonoscopy performed showed a colon cancer. Unfortunately before colorectal surgery could be attempted he would need repair of the aortic stenosis but this could not be completed until after he completed lengthy antibiotics for his bacteremia. This a.m. he began having bright red rectal bleeding. I believe the source is most likely his known colon cancer. Unfortunately here at [facility] we do not have the appropriate services available to help manage his condition. We did obtain CBC electrolytes PT/INR. I do note a hemoglobin of 10 which is improved from recent and in evaluation of the epic labs improved from recent hospitalization. INR is 1.2. He does have known chronic kidney disease. BUN today is 44 creatinine is 1.9. This is slightly higher than baseline and for this I have administered a liter of IV fluid. The rest of the electrolytes were without acute worrisome abnormalities. Given our inability to manage a rectal bleed at this time as we do not have surgery available as well as his complex complicating medical processes I am going to reach out to [facility] where he was recently hospitalized to discuss this case and possible transfer at this time I am deferring CT imaging as I do not feel it would add to his care or change our decision making. 1520: I have spoken with Dr. Mayer colorectal surgery at [facility]. She is also spoken with Dr. Carmichael the attending physician. Given that the patient has had no further rectal bleeding while here in the ER and his hemoglobin is rather stable they feel that he is appropriate for outpatient management. They would recommend a repeat hemogram at the 6-hour indira to ensure no significant decline in his hemoglobin. His hemoglobin seems to range between 8-1/2 and 9.5. They also reported that they would be unable to do anything from a colorectal standpoint until after the patient had his aortic stenosis addressed. The patient did have a bladder scan here that showed a volume of 625. The patient was only able to void a little more than 250 and on repeat scan still has about 330 volume residual. He has declined a Mahan catheter. UA shows more than 25 WBCs and rare bacteria but the patient is denying any urinary symptoms. At this point we will defer antibiotics unless symptoms change. 1815: Repeat hemogram remained stable with a hemoglobin of 10.8. I discussed with patient at this time he is stable for discharge home. He will need to continue to be monitored closely for any further recurrence of rectal bleeding at his care facility. Unfortunately he will not be a candidate for colorectal surgery until after he has the aortic stenosis repaired or evaluated and there is pending follow-up at [facility] for this. He is discharged home in stable condition. Routine emergent return precautions discussed. Departure - Departure Disposition: Home, Self Care Clinical Impression: History of colon cancer, Rectal bleeding Aortic stenosis Qualifiers: Cardiac valve disease etiology: etiology unspecified Qualified Code(s): I35.0 - Nonrheumatic aortic (valve) stenosis Condition: Stable Record reviewed to determine appropriate education?: Yes Comments: Edil you are seen today in the emergency department because you had an episode of rectal bleeding this morning. You have a history of colon cancer as well as severe aortic stenosis. Unfortunately you are not a candidate for colorectal surgery until the aortic stenosis is repaired. You must follow closely with your providers at [facility] for this. I am your hemoglobin today was initially 10 and on repeat it had risen to 10.8. You had no further episodes of rectal bleeding while in the emergency department. Your case was discussed with the colorectal surgeons at [facility]. Because you are not having any further rectal bleeding in the ER and your hemoglobin has remained stable they recommend you continue close follow-up as an outpatient. You can continue to take your other usual medications. Return to the ER for any repeat episodes of rectal bleeding, fainting fevers or concerns that you are unable to adequately urinate. Forms: PCP List
[2023-02-04 12:47] LABS: BASOPHILS % (AUTO) 0.8 %; EOSINOPHILS # (AUTO) 0.2 10^3/uL (0.0-0.7); EOSINOPHILS % (AUTO) 4.2 %; HCT - HEMATOCRIT 31.3 % (42.0-52.0); LYMPHOCYTES # (AUTO) 1.3 10^3/uL (1.5-3.5); LYMPHOCYTES % (AUTO) 25.9 %; MEAN CORPUSCULAR HEMOGLOBIN 28.2 pg (27.0-31.0); MEAN CORPUSCULAR HGB CONC 31.9 g/dL (32.0-36.0); MEAN CORPUSCULAR VOLUME 88.2 fL (80.0-94.0); MONOCYTES # (AUTO) 0.6 10^3/uL (0.0-1.0); MONOCYTES % (AUTO) 12.4 %; NEUTROPHILS # (AUTO) 2.8 10^3/uL (1.5-6.6); NEUTROPHILS % (AUTO) 56.3 %; PLT - PLATELET COUNT 87 10^3/uL (130-450); RED BLOOD COUNT 3.55 10^6/uL (4.70-6.10)
[2023-02-04 12:55] LABS: INR 1.2 (0.8-1.2); PT - PROTHROMBIN TIME 13.4 secs (9.9-12.6)
[2023-02-04 13:03] LABS: ALBUMIN 3.2 g/dL (3.2-5.5); ALBUMIN/GLOBULIN RATIO 0.8 (1.0-2.2); BILIRUBIN,TOTAL 0.5 mg/dL (0.2-1.0); CALCIUM 8.7 mg/dL (8.5-10.3); CREATININE 1.9 mg/dL (0.6-1.3); POTASSIUM 4.2 mmol/L (3.5-4.5); TOTAL PROTEIN 7.2 g/dL (6.4-8.9)
[2023-02-04] MEDS ORDERED: SODIUM CHLORIDE 0.9% 1,000 ML IV STA (13:20)
[2023-02-04 15:22] LABS: HCT - HEMATOCRIT 32.1 % (42.0-52.0); HGB - HEMOGLOBIN 10.2 g/dL (14.0-18.0)
[2023-02-04 15:24] LABS: BILIRUBIN,URINE NEGATIVE (NEGATIVE); CLARITY,URINE HAZY (CLEAR); GLUCOSE, URINE (UA) NEGATIVE (NEGATIVE); KETONES,URINE (UA) NEGATIVE (NEGATIVE); LEUKOCYTE ESTERASE, URINE SMALL (NEGATIVE); NITRITE,URINE NEGATIVE (NEGATIVE); OCCULT BLOOD,URINE NEGATIVE (NEGATIVE); PROTEIN,URINE 30 mg/dL (NEGATIVE); UROBILINOGEN,URINE 0.2 (NORMAL) E.U./dL (NORMAL)
[2023-02-04 15:56] LABS: BACTERIA,URINE Rare /HPF (None Seen); EPITHELIAL CELLS,UR FEW Transitional /HPF (<= Few); RBC,URINE 0-5 /HPF (0-5); SQUAMOUS EPITHELIAL CELL,UR RARE Squamous (<= Few); WBC,URINE >25 /HPF (0-3)
[2023-02-04 17:46] VITALS: BP 130/60; O2SAT 98
[2023-02-04 17:59] LABS: HCT - HEMATOCRIT 33.7 % (42.0-52.0); HGB - HEMOGLOBIN 10.8 g/dL (14.0-18.0); MEAN CORPUSCULAR HEMOGLOBIN 28.3 pg (27.0-31.0); MEAN CORPUSCULAR VOLUME 88.5 fL (80.0-94.0); MEAN PLATELET VOLUME 10.1 fL (7.4-11.4); RED BLOOD COUNT 3.81 10^6/uL (4.70-6.10); RED CELL DISTRIBUTION WIDTH 14.1 % (12.0-15.0); WHITE BLOOD COUNT 5.3 x10^3/uL (4.8-10.8)
== END 2023-02-04 19:21 | disposition home or self-care (01) ==
LOC: EDUNIT# → ED 11:46
DX: K62.5 Hemorrhage of anus and rectum (principal); I35.0 Nonrheumatic aortic (valve) stenosis; Z85.038 Personal history of other malignant neoplasm of large intestine; I10 Essential (primary) hypertension; E78.00 Pure hypercholesterolemia, unspecified; I25.10 Atherosclerotic heart disease of native coronary artery without angina pectoris; J44.9 Chronic obstructive pulmonary disease, unspecified; E11.42 Type 2 diabetes mellitus with diabetic polyneuropathy; Z79.899 Other long term (current) drug therapy; Z79.4 Long term (current) use of insulin
CPT/HCPCS: 36415; 51798; 80053; 81001; 81003; 82272; 83690; 85014; 85018; 85025; 85027; 85610; 86850; 86900; 86901; 87040; 87077; 87086; 87181; 87491; 87591; 87661; 96360; 99284

== ENCOUNTER 2023-02-04 19:12 | Outpatient (CLI) | payer MEDICARE, OTHER | END 2023-02-04 19:13 | disposition home or self-care (01) | LOC: EMS 19:12 | PROVIDERS: ATTEND Emergency Medicine | DX: Z74.01 Bed confinement status (principal) | CPT/HCPCS: A0425; A0428 ==

== ENCOUNTER 2023-02-06 13:12 | Outpatient (CLI) | payer MEDICARE, OTHER | END 2023-02-06 13:13 | disposition critical access hospital (66) | LOC: EMS 13:12 | DX: K62.5 Hemorrhage of anus and rectum (principal) | CPT/HCPCS: A0425; A0429 ==

== ENCOUNTER 2023-02-06 13:24 | Emergency (ER) | payer MEDICARE, OTHER ==
--- NOTE | 2023-02-06 13:51 | ED Physician Documentation ---
History of Present Illness - Stated complaint Stated Complaint: GIB - Additonal information Additional information: 77-year-old male who returns to the emergency department for evaluation of lower GI bleeding. Patient was seen by myself on 04 February after he had been found to have a bright red stool while at his care facility [facility]. This is an fortunate gentleman who has a history of cirrhosis, diabetes, hypertension, hyperlipidemia was hospitalized here at [facility] for bacteremia and required transfer to [facility]. [facility] were unable to determine a source for the patient's bacteremia due to strep mitis. However he did have a lengthy course of both oral and IV antibiotics which stopped on 25 December. While hospitalized he was found to have colon cancer as well as fairly severe aortic stenosis. Unfortunately he was not a candidate for colorectal surgery until the aortic stenosis had been treated. With his last ED visit on the I did reach out to [facility] and neurology and spoke with Dr. Mayer. Because the patient had stable vital signs and a reassuring hemoglobin in the mid 10 range, they felt that he would not require transfer at that time and he needed to continue following closely with cardiology for his stenosis. This morning care staff at [facility] found that he had a rather large episode of rectal bleeding/hematochezia. EMS was able to photograph a picture that shows a bag with large amount of bright red blood and stool. I have sent this photo to [facility]. Patient presents with heart rate of 68 blood pressure of 129/66. Blood cultures obtained 2 days ago have shown no growth to date. Urine showed Enterococcus sensitivities pending. However patient is not currently on antibiotics as he is asymptomatic from a urinary standpoint. Review of Systems Constitutional: denies: Fever, Chills Throat: reports: Reviewed and negative Cardiac: reports: Reviewed and negative Respiratory: reports: Reviewed and negative GI: reports: Bloody / black stool : reports: Reviewed and negative Skin: reports: Reviewed and negative Musculoskeletal: reports: Reviewed and negative Neurologic: reports: Reviewed and negative PD PAST MEDICAL HISTORY - Past Medical History Past Medical History: No Cardiovascular: Hypertension, High cholesterol, Coronary artery disease, Peripheral Vascular Disease, [place] Respiratory: COPD, Shortness of breath Neuro: Peripheral neuropathy Endocrine/Autoimmune: Type 2 diabetes GI: GI bleed : Nocturia, Frequency, Kidney stones Psych: Anxiety, Panic attacks Musculoskeletal: Fibromyalgia, Chronic back pain - Past Surgical History Past Surgical History: Yes Ortho: Amputation Cardiovascular: Coronary stent HEENT: Cataracts - Present Medications Home Medications: Ambulatory Orders Medication Instructions Recorded Confirmed Loratadine 10 mg PO DAILY 11/07/12 11/27/22 Atorvastatin [Lipitor] 40 mg PO DAILY PM #30 08/26/17 11/27/22 carvediloL [Coreg] 25 mg PO BID #60 08/26/17 11/27/22 Furosemide 40 mg PO BID 12/30/17 11/27/22 Gabapentin [Neurontin] 300 mg PO TID 06/01/18 11/27/22 Losartan [Cozaar] 50 mg PO DAILY 06/01/18 11/27/22 Insulin Glargine [Lantus Solostar] 100 unit SUBQ QDBREAKFAST 10/02/20 11/27/22 Tamsulosin [Flomax] 0.4 mg PO DAILY 30 Days #30 cap 10/02/20 11/27/22 Insulin Glargine [Lantus Solostar] 50 units SUBQ QPM 11/27/22 11/27/22 - Allergies Allergies/Adverse Reactions: Allergies Allergy/AdvReac Type Severity Reaction Status Date / Time pregabalin [From Lyrica] Allergy Intermediate unknown Verified 02/04/23 11:57 simvastatin [From Zocor] Allergy Intermediate Nausea Verified 02/04/23 11:57 sulfamethoxazole Allergy Intermediate unknown Verified 02/04/23 11:57 [From Septra] trimethoprim [From Septra] Allergy Intermediate unknown Verified 02/04/23 11:57 tetracycline [Tetracycline] Allergy Rash Verified 02/04/23 11:57 - Social History Does the pt smoke?: No Smoking Status: Never smoker Does the pt drink ETOH?: No Does the pt have substance abuse?: No - Immunizations Immunizations are current?: Yes - POLST Patient has POLST: No POLST Status: Full Code PD ED PE NORMAL - General General: Alert and oriented X 3, No acute distress, Well developed/nourished - HEENT HEENT: Atraumatic - Neck Neck: Supple, no meningeal sign, No JVD - Cardiac Cardiac: RRR. No: No murmur (pronounced systolic murmur) - Respiratory Respiratory: No respiratory distress, Clear bilaterally - Abdomen Abdomen: Normal bowel sounds, Soft. No: Non tender (generalized tenderness LLQ) - Male Male : Coil Strapper present, Other (Corey hematochezia with digital rectal exam) - Back Back: No CVA TTP - Derm Derm: Normal color, Warm and dry, No rash - Extremities Extremities: No deformity - Neuro Neuro: Alert and oriented X 3, compliance investigator 2-12 intact Eye Opening: Spontaneous Motor: Obeys Commands Verbal: Oriented GCS Score: 15 Results - Vitals Vitals: Vital Signs - 24 hr 02/06/23 02/06/23 02/06/23 13:21 15:38 17:38 Temperature 36.8 C Heart Rate 68 69 66 Respiratory 15 22 20 Rate Blood Pressure 129/66 115/64 150/77 H O2 Saturation 99 100 100 Oxygen O2 Source Room air - EKG (time done) 1404 EKG releavant findings:: EKG personally interpreted by author of this note. Relevant findings are: Rate: Rate (enter#) (64) Rhythm: Other (junctional) Intervals: No: Prolonged QT QRS: Poor R wave progression Ischemia: Normal ST segments Compare to prior EKG: Unchanged from prior EKG Computer interpretation: Agree with computer - Labs Labs: Laboratory Tests 02/06/23 02/06/23 02/06/23 13:46 13:46 13:46 WBC 6.2 RBC 3.48 L Hgb 9.9 L Hct 30.5 L MCV 87.6 MCH 28.4 MCHC 32.5 RDW 14.1 Plt Count 97 L MPV 9.7 Neut # (Auto) 3.9 Lymph # (Auto) 1.5 [place] # (Auto) 0.5 Eos # (Auto) 0.2 Baso # (Auto) 0.0 Absolute Nucleated RBC 0.00 Nucleated RBC % 0.0 Sodium 135 Potassium 4.3 Chloride 107 Carbon Dioxide 22 Anion Gap 6.0 BUN 47 H Creatinine 1.8 H Estimated GFR (MDRD) 37 L Glucose 235 H Lactic Acid Calcium 8.6 Total Bilirubin 0.5 AST 24 ALT 27 Alkaline Phosphatase 142 H Total Protein 7.2 Albumin 3.2 Globulin 4.0 Albumin/Globulin Ratio 0.8 L Lipase 20 Blood Type A POSITIVE Antibody Screen NEGATIVE 02/06/23 13:46 WBC RBC Hgb Hct MCV MCH MCHC RDW Plt Count MPV Neut # (Auto) Lymph # (Auto) [place] # (Auto) Eos # (Auto) Baso # (Auto) Absolute Nucleated RBC Nucleated RBC % Sodium Potassium Chloride Carbon Dioxide Anion Gap BUN Creatinine Estimated GFR (MDRD) Glucose Lactic Acid 1.3 Calcium Total Bilirubin AST ALT Alkaline Phosphatase Total Protein Albumin Globulin Albumin/Globulin Ratio Lipase Blood Type Antibody Screen PD Medical Decision Making - ED course Complexity details: reviewed results, re-evaluated patient, d/w patient ED course: Unfortunate gentleman who has a history of recent bacteremia and urinary tract infection that was subsequently seen evaluated at [facility] found to have severe aortic stenosis as well as colorectal cancer. Unfortunately not a candidate for colorectal repair until the aortic stenosis is addressed. He has had recurrent lower GI bleeding though hemodynamically stable. This is his second ED visit in 2 days. Here in the emergency department he presents afebrile with a heart rate in the 60s and normotensive. He had corey hematochezia on rectal exam. I was presented by EMS with a picture showing a bag full of blood from his rectal bleed this morning that resembled marinara sauce. I did obtain a CBC and electrolytes. Per my interpretation he has a hemoglobin of 9.9 today. Slightly down from the most recent hemoglobin of 10.8 on the sixth. Electrolytes show acute on chronic renal disease BUN of 47 and creatinine of 1.8. Essentially unchanged from 48 hours ago. I reach back out to [facility] hospitals and spoke with gastroenterology physician Dr. Way. She cannot accept the patient unless the patient is excepted by hospitalist and cardiology as no colorectal surgery is possible until the aortic valve is repaired. Subsequently I spoke with Dr. Bear electro mechanical technician who agrees to accept the patient to [facility] for further evaluation and management of his aortic stenosis with the understanding that they cannot guarantee the patient will receive a TAVR or have repair as he is surgically high risk. I am being notified by [facility] that there will likely be a lengthy delay in transfer, several days until a bed is available. gastroenterology who declines I was then contacted again by [facility] transfer center. They had reached out to the hospitalist who would not accept the patient unless GI was on board. I then again spoke with gastroenterology who declined to accept the patient until the TAVR had been completed. Subsequently I spoke with Dr. Santiago we are we will discuss this case at length. He agrees to have the patient transferred to [facility] as long as the patient is under the understanding that if a TAVR cannot be completed the patient would need to be discharged likely to hospice or palliative care because then the colorectal cancer could not be addressed and the patient would likely succumb due to GI bleeding. Following this conversation I spoke with Dr. Esquivel hospitalist at [facility] who has accepted the patient in transfer. It would likely be several days before bed is available and until then patient will board here. I did have a very lengthy conversation with the patient to inform him that [facility] was excepting in transfer. The goal of transfer was to be evaluated to see if the TAVR could be completed. If he was deemed not to be a candidate for TAVR he would be discharged from [facility] with the understanding that at that point there would be no treatment rendered or available for his rectal cancer or GI bleeding. pt signed out to my night time colleague to f/u on any acute overnight events Departure - Departure Disposition: 02 Transfer Acute Care Hosp Clinical Impression: GI bleed Qualifiers: GI bleed type/associated pathology: unspecified gastrointestinal hemorrhage type Qualified Code(s): K92.2 - Gastrointestinal hemorrhage, unspecified Aortic stenosis Qualifiers: Cardiac valve disease etiology: etiology unspecified Qualified Code(s): I35.0 - Nonrheumatic aortic (valve) stenosis Colon cancer Qualifiers: Colon location: unspecified part of colon Qualified Code(s): C18.9 - Malignant neoplasm of colon, unspecified
[2023-02-06 13:53] LABS: BASOPHILS % (AUTO) 0.6 %; EOSINOPHILS # (AUTO) 0.2 10^3/uL (0.0-0.7); EOSINOPHILS % (AUTO) 3.9 %; HCT - HEMATOCRIT 30.5 % (42.0-52.0); HGB - HEMOGLOBIN 9.9 g/dL (14.0-18.0); LYMPHOCYTES # (AUTO) 1.5 10^3/uL (1.5-3.5); LYMPHOCYTES % (AUTO) 24.6 %; MEAN CORPUSCULAR HEMOGLOBIN 28.4 pg (27.0-31.0); MEAN CORPUSCULAR HGB CONC 32.5 g/dL (32.0-36.0); MEAN CORPUSCULAR VOLUME 87.6 fL (80.0-94.0); MEAN PLATELET VOLUME 9.7 fL (7.4-11.4); MONOCYTES # (AUTO) 0.5 10^3/uL (0.0-1.0); MONOCYTES % (AUTO) 8.1 %; NEUTROPHILS # (AUTO) 3.9 10^3/uL (1.5-6.6); NEUTROPHILS % (AUTO) 62.3 %; PLT - PLATELET COUNT 97 10^3/uL (130-450); RED BLOOD COUNT 3.48 10^6/uL (4.70-6.10); RED CELL DISTRIBUTION WIDTH 14.1 % (12.0-15.0); WHITE BLOOD COUNT 6.2 x10^3/uL (4.8-10.8)
[2023-02-06] MEDS ORDERED: SODIUM CHLORIDE 0.9% 1,000 ML IV STA (13:53)
[2023-02-06 14:06] LABS: ALBUMIN 3.2 g/dL (3.2-5.5); ALBUMIN/GLOBULIN RATIO 0.8 (1.0-2.2); BILIRUBIN,TOTAL 0.5 mg/dL (0.2-1.0); CALCIUM 8.6 mg/dL (8.5-10.3); CREATININE 1.8 mg/dL (0.6-1.3); POTASSIUM 4.3 mmol/L (3.5-4.5); TOTAL PROTEIN 7.2 g/dL (6.4-8.9)
[2023-02-06] MEDS ORDERED: oxyCODONE 5 MG TABLET PO STA (16:42)
[2023-02-06] MEDS ORDERED: ONDANSETRON 4 MG/2 ML VIAL IVP PRN (20:21)
[2023-02-06] MEDS: carvediloL 12.5 MG TABLET PO SCH (21:10)
[2023-02-06] MEDS: FUROSEMIDE 20 MG TABLET PO SCH (21:10)
[2023-02-06] MEDS: GABAPENTIN 100 MG CAPSULE PO SCH (21:10)
[2023-02-06] MEDS: INSULIN GLARGINE-YFGN 300 UNIT/3 ML PEN SUBQ SCH (23:08)
--- NOTE | 2023-02-06 23:21 | ED Physician Documentation ---
ED Addendum - Addendum Addendum: 02/06/23 23:20 No changes during my shift, signed out to the oncoming emergency department physician.
[2023-02-07] MEDS ORDERED: oxyCODONE 5 MG TABLET PO STA ×2 (01:11→22:33)
[2023-02-07 05:28] LABS: BASOPHILS # (AUTO) 0.1 10^3/uL (0.0-0.1); BASOPHILS % (AUTO) 0.8 %; EOSINOPHILS # (AUTO) 0.3 10^3/uL (0.0-0.7); EOSINOPHILS % (AUTO) 4.5 %; HCT - HEMATOCRIT 28.8 % (42.0-52.0); HGB - HEMOGLOBIN 9.4 g/dL (14.0-18.0); LYMPHOCYTES # (AUTO) 1.9 10^3/uL (1.5-3.5); MEAN CORPUSCULAR HEMOGLOBIN 28.6 pg (27.0-31.0); MEAN CORPUSCULAR HGB CONC 32.6 g/dL (32.0-36.0); MEAN CORPUSCULAR VOLUME 87.5 fL (80.0-94.0); MEAN PLATELET VOLUME 9.2 fL (7.4-11.4); MONOCYTES # (AUTO) 0.5 10^3/uL (0.0-1.0); MONOCYTES % (AUTO) 8.3 %; NEUTROPHILS # (AUTO) 3.5 10^3/uL (1.5-6.6); NEUTROPHILS % (AUTO) 56.1 %; PLT - PLATELET COUNT 94 10^3/uL (130-450); RED BLOOD COUNT 3.29 10^6/uL (4.70-6.10); RED CELL DISTRIBUTION WIDTH 14.2 % (12.0-15.0); WHITE BLOOD COUNT 6.2 x10^3/uL (4.8-10.8)
[2023-02-07 05:36] LABS: CALCIUM 8.7 mg/dL (8.5-10.3); CREATININE 1.7 mg/dL (0.6-1.3); POTASSIUM 4.2 mmol/L (3.5-4.5)
[2023-02-07] MEDS: PANTOPRAZOLE 40 MG TABLET PO SCH ×2 (06:08→09:24)
[2023-02-07] MEDS: GABAPENTIN 100 MG CAPSULE PO SCH ×3 (06:08→22:05)
--- NOTE | 2023-02-07 06:42 | ED Physician Documentation ---
ED Addendum - Addendum Addendum: Patient endorsed to me by Dr. Scott awaiting transfer to [facility] for TAVR in the setting of GI bleed and rectal cancer. No acute events overnight. Patient will be endorsed to incoming daytime EDMD at 7 AM shift change.
[2023-02-07] MEDS ORDERED: INSULIN GLARGINE-YFGN 300 UNIT/3 ML PEN SUBQ SCH ×2 (08:00→09:00)
[2023-02-07] MEDS: FUROSEMIDE 20 MG TABLET PO SCH ×2 (09:23→19:13)
[2023-02-07] MEDS: TAMSULOSIN 0.4 MG CAPSULE PO SCH (09:24)
[2023-02-07] MEDS: ACETAMINOPHEN 500 MG TABLET PO PRN ×2 (09:24→19:13)
[2023-02-07] MEDS: carvediloL 12.5 MG TABLET PO SCH ×2 (09:25→19:13)
[2023-02-07] MEDS: LOSARTAN 50 MG TABLET PO SCH (09:25)
[2023-02-07] MEDS: INSULIN GLARGINE-YFGN 300 UNIT/3 ML PEN SUBQ SCH ×2 (09:56→19:14)
--- NOTE | 2023-02-07 12:12 | ED Physician Documentation ---
ED Addendum - Addendum Addendum: 02/07/23 12:10 The patient remains comfortable here this morning. He was resting. No report of rectal bleeding output overnight. Repeat blood count this morning was 9.4 hemoglobin decreased from 9.9 previous. We are still awaiting word from [facility] for transfer. Apparently the initial transfer is regarding cardiology for his aortic valve issue though we are monitoring the GI bleed component from his rectal cancer. We can repeat blood count either later today or again tomorrow morning. I will place the order. He did have a urine culture from the sixth showing this medium growth of Enterococcus faecalis. It is sensitive to quinolones. He is allergic to sulfa and tetracycline. I will place an order for Levaquin daily for 3 days. Again summary is waiting for word from [facility] regarding transfer.
[2023-02-07] MEDS: levoFLOXacin 500 MG/100 ML 500 MG/100 ML BAG IV SCH (12:33)
--- NOTE | 2023-02-07 21:34 | ED Physician Documentation ---
ED Addendum - Addendum Addendum: 02/07/23 21:33 No changes during my shift. Patient was signed out to the oncoming emergency department physician. Patient continues to await bed placement for transfer
--- NOTE | 2023-02-07 23:31 | ED Physician Documentation ---
ED Addendum - Addendum Addendum: 02/07/23 23:29 Patient endorsed to me by daytime ED MD awaiting transfer. No further GIB reported. Patient resting in bed, NAD. Plan to endorse to incoming daytime ED MD at 7am shift change.
[2023-02-08] MEDS ORDERED: ZINC OXIDE 20% OINT 30 GM TUBE TOP STA (04:47)
[2023-02-08] MEDS ORDERED: MIN OIL/DIMETHICON/COCONUT OIL 92 GM TUBE TOP STA (04:48)
[2023-02-08] MEDS: GABAPENTIN 100 MG CAPSULE PO SCH (05:58)
[2023-02-08 06:33] LABS: BASOPHILS % (AUTO) 0.6 %; EOSINOPHILS # (AUTO) 0.4 10^3/uL (0.0-0.7); EOSINOPHILS % (AUTO) 5.5 %; HCT - HEMATOCRIT 30.9 % (42.0-52.0); HGB - HEMOGLOBIN 9.7 g/dL (14.0-18.0); LYMPHOCYTES % (AUTO) 31.4 %; MEAN CORPUSCULAR HEMOGLOBIN 27.7 pg (27.0-31.0); MEAN CORPUSCULAR HGB CONC 31.4 g/dL (32.0-36.0); MEAN CORPUSCULAR VOLUME 88.3 fL (80.0-94.0); MONOCYTES # (AUTO) 0.6 10^3/uL (0.0-1.0); MONOCYTES % (AUTO) 9.6 %; NEUTROPHILS # (AUTO) 3.3 10^3/uL (1.5-6.6); NEUTROPHILS % (AUTO) 52.4 %; PLT - PLATELET COUNT 93 10^3/uL (130-450); RED CELL DISTRIBUTION WIDTH 14.3 % (12.0-15.0); WHITE BLOOD COUNT 6.3 x10^3/uL (4.8-10.8)
[2023-02-08 06:51] LABS: ALBUMIN 3.2 g/dL (3.2-5.5); ALBUMIN/GLOBULIN RATIO 0.8 (1.0-2.2); BILIRUBIN,TOTAL 0.6 mg/dL (0.2-1.0); CALCIUM 8.7 mg/dL (8.5-10.3); POTASSIUM 4.3 mmol/L (3.5-4.5); TOTAL PROTEIN 7.1 g/dL (6.4-8.9)
[2023-02-08] MEDS: INSULIN GLARGINE-YFGN 300 UNIT/3 ML PEN SUBQ SCH (09:39)
[2023-02-08] MEDS: carvediloL 12.5 MG TABLET PO SCH (09:39)
[2023-02-08] MEDS: FUROSEMIDE 20 MG TABLET PO SCH (09:40)
[2023-02-08] MEDS: LOSARTAN 50 MG TABLET PO SCH (09:40)
[2023-02-08] MEDS: ACETAMINOPHEN 500 MG TABLET PO PRN (09:41)
[2023-02-08] MEDS: TAMSULOSIN 0.4 MG CAPSULE PO SCH (09:41)
[2023-02-08] MEDS: levoFLOXacin 500 MG/100 ML 500 MG/100 ML BAG IV SCH (10:27)
[2023-02-08] MEDS ORDERED: levoFLOXacin 250 MG TABLET PO SCH (11:00)
[2023-02-08] MEDS ORDERED: oxyCODONE 5 MG TABLET PO PRN (11:04)
[2023-02-08 12:09] VITALS: BP 104/47; O2SAT 97
--- NOTE | 2023-02-08 12:14 | ED Physician Documentation ---
ED Addendum - Addendum Addendum: 02/08/23 12:13 77-year-old male has been in the emergency department for over 48 hours now. Has not had any recurrence of GI bleeding. Hemoglobin is stable. No emergency medical condition at this time. [facility] still does not have any beds and does not foresee having any beds over the weekend. Therefore as the patient is stable and his rectal bleeding has resolved for 48 hours, we will discharge him back to his snf facility and he can follow-up as an outpatient with his laundry route driver for his TAVR. We will continue the course of antibiotics at home for his UTI. Patient counseled regarding signs and symptoms for which I believe and urgent re-evaluation would be necessary. Patient with good understanding of and agreement to plan and is comfortable going home at this time This document was made in part using voice recognition software. While efforts are made to proofread this document, sound alike and grammatical errors may occur. Departure - Departure Disposition: 01 Home, Self Care Clinical Impression: GI bleed Qualifiers: GI bleed type/associated pathology: unspecified gastrointestinal hemorrhage type Qualified Code(s): K92.2 - Gastrointestinal hemorrhage, unspecified Aortic stenosis Qualifiers: Cardiac valve disease etiology: etiology unspecified Qualified Code(s): I35.0 - Nonrheumatic aortic (valve) stenosis Colon cancer Qualifiers: Colon location: unspecified part of colon Qualified Code(s): C18.9 - Malignant neoplasm of colon, unspecified UTI (urinary tract infection) Qualifiers: Urinary tract infection type: acute cystitis Hematuria presence: without hematuria Qualified Code(s): N30.00 - Acute cystitis without hematuria Condition: Good Instructions: ED Hematochezia Stable Follow-Up: Valeria Cabrales MD [Provider Admit Priv/Credential] - Valeria Cabrales MD [Provider Admit Priv/Credential] - Within 1 week Prescriptions: cephALEXin [Keflex] 500 mg PO Q6H #20 cap Comments: As we discussed you have not had any further rectal bleeding since being in the hospital for 2 days. Your blood counts are normal and have not changed in 2 days. Please follow-up with your primary care provider, your laundry route driver and any other referrals been placed for your colon cancer as scheduled. Your antibiotic prescription was sent to [facility]. This is for a urinary tract infection. Forms: PCP List
== END 2023-02-08 13:58 | disposition home or self-care (01) ==
LOC: EDUNIT# → ED 13:24
DX: K92.2 Gastrointestinal hemorrhage, unspecified (principal); C18.9 Malignant neoplasm of colon, unspecified; I35.0 Nonrheumatic aortic (valve) stenosis; N30.00 Acute cystitis without hematuria; B95.2 Enterococcus as the cause of diseases classified elsewhere; I10 Essential (primary) hypertension; E78.00 Pure hypercholesterolemia, unspecified; I25.10 Atherosclerotic heart disease of native coronary artery without angina pectoris; J44.9 Chronic obstructive pulmonary disease, unspecified; E11.42 Type 2 diabetes mellitus with diabetic polyneuropathy; Z88.1 Allergy status to other antibiotic agents; Z88.2 Allergy status to sulfonamides; Z79.899 Other long term (current) drug therapy; Z79.4 Long term (current) use of insulin
CPT/HCPCS: 36415; 80048; 80053; 83605; 83690; 85025; 86850; 86900; 86901; 93005; 96365; 96366; 96375; 99284; A6250; A9270; J1815

== ENCOUNTER 2023-02-08 14:08 | Outpatient (CLI) | payer MEDICARE, OTHER | END 2023-02-08 14:09 | LOC: EMS 14:08 | PROVIDERS: ATTEND Emergency Medicine | DX: C18.9 Malignant neoplasm of colon, unspecified (principal); Z74.01 Bed confinement status | CPT/HCPCS: A0425; A0428 ==

== ENCOUNTER 2023-02-18 15:39 | Outpatient (CLI) | payer MEDICARE, OTHER | END 2023-02-18 15:40 | disposition EMS.NT | LOC: EMS 15:39 | DX: K62.5 Hemorrhage of anus and rectum (principal) ==

== ENCOUNTER 2023-02-23 15:23 | Outpatient (CLI) | payer MEDICARE, OTHER | END 2023-02-23 15:24 | disposition critical access hospital (66) | LOC: EMS 15:23 | DX: R05.9 Cough, unspecified (principal); R11.2 Nausea with vomiting, unspecified; R19.7 Diarrhea, unspecified | CPT/HCPCS: A0425; A0427 ==

== ENCOUNTER 2023-02-23 15:29 | Emergency (ER) | payer MEDICARE, OTHER ==
[2023-02-23] MEDS ORDERED: ONDANSETRON 4 MG/2 ML VIAL IVP STA ×2 (16:12→18:08)
[2023-02-23] MEDS ORDERED: SODIUM CHLORIDE 0.9% 1,000 ML IV STA (16:12)
[2023-02-23 16:43] LABS: ALBUMIN 3.3 g/dL (3.2-5.5); ALBUMIN/GLOBULIN RATIO 0.9 (1.0-2.2); BILIRUBIN,TOTAL 0.5 mg/dL (0.2-1.0); CALCIUM 8.6 mg/dL (8.5-10.3); CREATININE 2.6 mg/dL (0.6-1.3); POTASSIUM 4.3 mmol/L (3.5-4.5); TOTAL PROTEIN 6.9 g/dL (6.4-8.9)
--- NOTE | 2023-02-23 16:46 | XRAY Report ---
PROCEDURE: Chest 1 View X-Ray INDICATIONS: cough TECHNIQUE: One view of the chest was acquired. COMPARISON: 11/26/2022 FINDINGS: Surgical changes and devices: None. Lungs and pleura: On the semiupright images, no large pneumothorax or large pleural effusions can be seen. No focal infiltrates are seen. Low lung volumes can be seen, causing a crowded appearance to the lung markings. Mediastinum: Mediastinal contours appear normal. Heart size is at the upper limits of normal. Bones and chest wall: No suspicious bony lesions. At least one remote left posterior rib fracture ca n be seen. Overlying soft tissues appear unremarkable. IMPRESSION: Limited portable chest examination, without an acute abnormality identified. No focal infiltrates are seen. Reviewed by: Luigi Dockery MD on 02/23/2023 3:44 PM [facility] Approved by: Luigi Dockery MD on 02/23/2023 3:44 PM [facility] Station ID: [id number]
[2023-02-23 16:49] LABS: B. PARAPERTUSSIS- RESP PCR PAN NOT DETECTED; B. PERTUSSIS- RESP PCR PANEL NOT DETECTED; C. PNEUMONIAE- RESP PCR PANEL NOT DETECTED; CORONAVIRUS 229E-RESP PCR NOT DETECTED; CORONAVIRUS HKU1-RESP PCR NOT DETECTED; CORONAVIRUS NL63-RESP PCR NOT DETECTED; CORONAVIRUS OC43-RESP PCR NOT DETECTED; HUMAN METAPNEUMOVIRUS DETECTED; INFLUENZA A- RESP PCR PANEL NOT DETECTED; INFLUENZA B - RESP PCR PANEL NOT DETECTED; M. PNEUMONIAE- RESP PCR PANEL NOT DETECTED; PARAINFLUENZA VIRUS 1 NOT DETECTED; PARAINFLUENZA VIRUS 2 NOT DETECTED; PARAINFLUENZA VIRUS 3 NOT DETECTED; PARAINFLUENZA VIRUS 4 NOT DETECTED; RHINOVIRUS/ENTEROVIRUS NOT DETECTED; RSV- RESP PCR PANEL NOT DETECTED; SARS-CoV-2 -RESP PCR PANEL NOT DETECTED
--- NOTE | 2023-02-23 17:06 | ED Physician Documentation ---
PD HPI NVD - Stated complaint Stated Complaint: COUGH V/D - Chief complaint Chief Complaint: Abd Pain - History obtained from History obtained from: Patient - History of Present Illness Timing - onset: How many days ago (4) Timing - duration: Days (4) Timing - details: Gradual onset, Still present Associated symptoms: Other (cough, vomiting, diarrhea) Contributing factors: Other (recently admitted to [facility] for placement of a TAVER) Improved by: Vomiting Worsened by: Breathing, Other (coughing) Similar symptoms before: Diagnosis (pneumonia, gastroenteritis) Recently seen: Surgery - Additonal information Additional information: Edil Zavala is a 77-year-old male with a history of COPD and peripheral vascular disease who has a right BKA and he has recently been in for a TAVR and at the time of discharge she had developed cough he is now developed cough along with vomiting and diarrhea. He was discharged from the hospital 5 days ago he has not developed a fever. Review of Systems Constitutional: denies: Fever Ears: denies: Loss of hearing, Ear pain Nose: reports: Congestion Throat: reports: Sore throat Respiratory: reports: Dyspnea, Cough GI: reports: Nausea, Vomiting, Diarrhea : denies: Dysuria PD PAST MEDICAL HISTORY - Past Medical History Past Medical History: Yes Cardiovascular: Hypertension, High cholesterol, Coronary artery disease, Peripheral Vascular Disease, [place] Respiratory: COPD, Shortness of breath Neuro: Peripheral neuropathy Endocrine/Autoimmune: Type 2 diabetes GI: GI bleed : Nocturia, Frequency, Kidney stones Psych: Anxiety, Panic attacks Musculoskeletal: Fibromyalgia, Chronic back pain - Past Surgical History Past Surgical History: Yes Ortho: Amputation Cardiovascular: Coronary stent HEENT: Cataracts - Present Medications Home Medications: Ambulatory Orders Medication Instructions Recorded Confirmed Atorvastatin [Lipitor] 40 mg PO DAILY PM #30 08/26/17 02/07/23 carvediloL [Coreg] 25 mg PO BID #60 08/26/17 02/07/23 Furosemide 40 mg PO BID 12/30/17 02/07/23 Gabapentin [Neurontin] 300 mg PO TID 06/01/18 02/07/23 Insulin Glargine [Lantus Solostar] 100 unit SUBQ QDBREAKFAST 10/02/20 02/07/23 Tamsulosin [Flomax] 0.4 mg PO DAILY 30 Days #30 cap 10/02/20 02/07/23 Insulin Glargine [Lantus Solostar] 50 units SUBQ QPM 11/27/22 02/07/23 Acetaminophen [Tylenol] 2 tab PO Q6HR PRN 02/07/23 02/07/23 Amlodipine Besylate [Norvasc] 10 mg PO DAILY 02/07/23 02/07/23 Bisacodyl Supp [Dulcolax Supp] 1 supp HI DAILY PRN 02/07/23 02/07/23 Diclofenac Sodium [Arthritis Pain] 1 applic TOP TID PRN 02/07/23 02/07/23 Losartan [Cozaar] 50 mg PO DAILY 02/07/23 02/07/23 Ondansetron Odt [Zofran Odt] 4 mg PO RTQ6H PRN 02/07/23 02/07/23 Oxycodone HCl [Roxybond] 5 mg PO Q6HR PRN 02/07/23 02/07/23 Sennosides/Docusate Sodium [Senna 2 tab PO PRN 02/07/23 Plus 8.6-50 mg Tablet] diphenhydrAMINE [Benadryl] 1 cap PO BID PRN 02/07/23 02/07/23 polyethylene glycoL 3350 [Miralax] 1 packet PO PRN 02/07/23 cephALEXin [Keflex] 500 mg PO Q6H #20 cap 02/08/23 Benzonatate [Tessalon] 100 - 200 mg PO TID PRN #30 cap 02/23/23 Ondansetron Odt [Zofran] 4 mg TL Q6H PRN #10 tablet 02/23/23 - Allergies Allergies/Adverse Reactions: Allergies Allergy/AdvReac Type Severity Reaction Status Date / Time pregabalin [From Lyrica] Allergy Intermediate unknown Verified 02/23/23 15:33 simvastatin [From Zocor] Allergy Intermediate Nausea Verified 02/23/23 15:33 sulfamethoxazole Allergy Intermediate unknown Verified 02/23/23 15:33 [From Septra] trimethoprim [From Septra] Allergy Intermediate unknown Verified 02/23/23 15:33 tetracycline [Tetracycline] Allergy Rash Verified 02/23/23 15:33 - Social History Does the pt smoke?: No Smoking Status: Never smoker Does the pt drink ETOH?: No Does the pt have substance abuse?: No - Immunizations Immunizations are current?: Yes - POLST Patient has POLST: No POLST Status: Full Code PD ED PE NORMAL - Vitals Vital signs reviewed: Yes (normal ) - General General: Well developed/nourished, Other (breathing loudly but not in distress) - HEENT HEENT: Atraumatic, PERRL, EOMI - Neck Neck: Supple, no meningeal sign, No bony TTP - Cardiac Cardiac: RRR, No murmur, Other (distant heart sounds) - Respiratory Respiratory: Other (poor cooperation with exam fair air movement without rhonchi) - Abdomen Abdomen: Soft, Non tender, Other (obese) - Back Back: No CVA TTP - Derm Derm: Normal color, Warm and dry, No rash - Extremities Extremities: Other (right BKA, left foot in a soft boot with heal ulcer. ) - Neuro Neuro: Alert and oriented X 3, coal pulverizing operator 2-12 intact, No motor deficit, No sensory deficit, Other (gruff speech) Eye Opening: Spontaneous Motor: Obeys Commands Verbal: Oriented GCS Score: 15 - Psych Psych: Normal mood, Normal affect Results - Vitals Vitals: Vital Signs - 24 hr 02/23/23 02/23/23 02/23/23 15:33 15:36 17:36 Temperature 36.6 C 36.6 C 36.5 C Heart Rate 63 63 62 Respiratory 20 20 18 Rate Blood Pressure 122/80 122/80 124/82 H O2 Saturation 96 96 98 Oxygen O2 Source Room air - Labs Labs: Laboratory Tests 02/23/23 02/23/23 15:57 16:20 Sodium 131 L Potassium 4.3 Chloride 104 Carbon Dioxide 21 Anion Gap 6.0 BUN 55 H Creatinine 2.6 H Estimated GFR (MDRD) 24 L Glucose 118 H Calcium 8.6 Total Bilirubin 0.5 AST 32 ALT 17 Alkaline Phosphatase 162 H Total Protein 6.9 Albumin 3.3 Globulin 3.6 Albumin/Globulin Ratio 0.9 L Lipase 16 Nasal Adenovirus (PCR) NOT DETECTED Nasal B. parapertussis DNA (PCR) NOT DETECTED Nasal Coronavir 229E PCR NOT DETECTED Nasal Coronavir HKU1 PCR NOT DETECTED Nasal Coronavir NL63 PCR NOT DETECTED Nasal Coronavir OC43 PCR NOT DETECTED Nasal Enterovir/Rhinovir PCR NOT DETECTED Nasal Influenza B PCR NOT DETECTED Nasal Influenza A PCR NOT DETECTED Nasal Parainfluen 1 PCR NOT DETECTED Nasal Parainfluen 2 PCR NOT DETECTED Nasal Parainfluen 3 PCR NOT DETECTED Nasal Parainfluen 4 PCR NOT DETECTED Nasal RSV (PCR) NOT DETECTED Nasal B.pertussis DNA PCR NOT DETECTED Nasal C.pneumoniae (PCR) NOT DETECTED Tyler Human Metapneumo PCR DETECTED A Nasal M.pneumoniae (PCR) NOT DETECTED Nasal SARS-CoV-2 (PCR) NOT DETECTED - Rads (name of study) chest Relevant Findings:: Prelim report reviewed (Impression: Limited portable chest examination, without any acute abnormality identified. No focal infiltrates are seen.), EMP independent interpretation of test PD Medical Decision Making - ED course Complexity details: reviewed results, re-evaluated patient, considered differential, d/w patient ED course: 77-year-old male with a history of COPD and peripheral vascular disease has had a recent TAVR he has developed a cough congestion and vomiting. We found he was dehydrated today and administered saline as well as cough suppressant and zofran. The patient does have human metapneumovirus. We provided symptomatic treatment which the patient responded to. Departure - Departure Disposition: 01 Home, Self Care Clinical Impression: Viral URI with cough Nausea & vomiting Qualifiers: Vomiting type: unspecified Qualified Code(s): R11.2 - Nausea with vomiting, unspecified Condition: Stable Instructions: ED Diet Vomiting Diarrhea, ED Upper Resp Infec No Abx Tx Follow-Up: Valeria Cabrales MD [Primary Care Provider] - Prescriptions: Benzonatate [Tessalon] 100 - 200 mg PO TID PRN #30 cap PRN Reason: Cough Ondansetron Odt [Zofran] 4 mg TL Q6H PRN #10 tablet PRN Reason: Nausea / Vomiting Comments: Edil, today it looks like you have a viral upper respiratory infection causing the coughing and the coughing is causing more symptoms. We have provided a cough suppressant and some medication for nausea. The nasal swab was positive today for human metapneumovirus.
[2023-02-23] MEDS ORDERED: BENZONATATE 100 MG CAPSULE PO STA (18:08)
[2023-02-23] MEDS ORDERED: HYDROcod/ACETAM 5/325 MG TABLET PO STA (19:04)
[2023-02-23 20:08] VITALS: BP 105/49; O2SAT 93
== END 2023-02-23 20:06 | disposition home or self-care (01) ==
LOC: EDUNIT# → ED 15:29
DX: J06.9 Acute upper respiratory infection, unspecified (principal); B97.81 Human metapneumovirus as the cause of diseases classified elsewhere; E86.0 Dehydration; Z20.822 Contact with and (suspected) exposure to COVID-19
CPT/HCPCS: 36415; 71045; 80053; 83690; 87633; 96361; 96374; 96376; 99284; A9270; 85025

== ENCOUNTER 2023-02-23 20:07 | Outpatient (CLI) | payer MEDICARE, OTHER | END 2023-02-23 20:08 | LOC: EMS 20:07 | PROVIDERS: ATTEND Emergency Medicine | DX: R41.0 Disorientation, unspecified (principal); Z74.01 Bed confinement status; I73.9 Peripheral vascular disease, unspecified; J06.9 Acute upper respiratory infection, unspecified | CPT/HCPCS: A0425; A0428 ==

== ENCOUNTER 2023-02-24 10:47 | Outpatient (CLI) | payer MEDICARE, OTHER | END 2023-02-24 10:48 | disposition critical access hospital (66) | LOC: EMS 10:47 | DX: K62.5 Hemorrhage of anus and rectum (principal); Z74.01 Bed confinement status | CPT/HCPCS: A0425; A0429 ==

== ENCOUNTER 2023-02-24 10:51 | Emergency (ER) | payer MEDICARE, OTHER ==
[2023-02-24 11:23] LABS: BASOPHILS % (AUTO) 0.2 %; EOSINOPHILS # (AUTO) 0.2 10^3/uL (0.0-0.7); EOSINOPHILS % (AUTO) 3.5 %; HCT - HEMATOCRIT 23.2 % (42.0-52.0); HGB - HEMOGLOBIN 7.5 g/dL (14.0-18.0); LYMPHOCYTES # (AUTO) 1.4 10^3/uL (1.5-3.5); LYMPHOCYTES % (AUTO) 25.3 %; MEAN CORPUSCULAR HEMOGLOBIN 28.8 pg (27.0-31.0); MEAN CORPUSCULAR HGB CONC 32.3 g/dL (32.0-36.0); MEAN CORPUSCULAR VOLUME 89.2 fL (80.0-94.0); MEAN PLATELET VOLUME 9.9 fL (7.4-11.4); MONOCYTES # (AUTO) 0.6 10^3/uL (0.0-1.0); MONOCYTES % (AUTO) 10.3 %; NEUTROPHILS # (AUTO) 3.3 10^3/uL (1.5-6.6); NEUTROPHILS % (AUTO) 60.7 %; PLT - PLATELET COUNT 63 10^3/uL (130-450); WHITE BLOOD COUNT 5.4 x10^3/uL (4.8-10.8)
--- NOTE | 2023-02-24 11:28 | ED Physician Documentation ---
PD HPI GI BLEED - Stated complaint Stated Complaint: GI BLEED - Chief complaint Chief Complaint: Abd Pain - History obtained from History obtained from: Patient - History of Present Illness Timing - onset: Today Timing - duration: Days (1) Timing - details: Abrupt onset Pain level max: 0 Pain level now: 0 Associated symptoms: BRBPR. 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 Filled his diaper at the custodial and run down his leg. He is status post TAVR for aortic stenosis on 02/19/[address] [facility]. Gaitan was the porter sample case. Dr. Cabarl is a colorectal surgeon at [facility], they were waiting to perform the hemicolectomy until his TAVR has been done. His echo post TAVR showed a 73% EF. Patient is not lightheaded, dizzy or having shortness of breath currently. Patient is currently living at [facility]. They noticed bright red blood filling his diaper and spilling out today. Review of Systems Constitutional: denies: Fever, Chills GI: denies: Vomiting : denies: Dysuria Skin: denies: Rash Musculoskeletal: denies: Neck pain, Back pain Neurologic: denies: Headache PD PAST MEDICAL HISTORY - Past Medical History Cardiovascular: Hypertension, High cholesterol, Coronary artery disease, Peripheral Vascular Disease, [place] Respiratory: COPD, Shortness of breath Neuro: Peripheral neuropathy Endocrine/Autoimmune: Type 2 diabetes GI: GI bleed : Nocturia, Frequency, Kidney stones Psych: Anxiety, Panic attacks Musculoskeletal: Fibromyalgia, Chronic back pain - Past Surgical History Past Surgical History: Yes Ortho: Amputation Cardiovascular: Coronary stent HEENT: Cataracts - Present Medications Home Medications: Ambulatory Orders Medication Instructions Recorded Confirmed carvediloL [Coreg] 25 mg PO BID #60 08/26/17 02/07/23 Furosemide 40 mg PO BID 12/30/17 02/07/23 Gabapentin [Neurontin] 300 mg PO TID 06/01/18 02/07/23 Insulin Glargine [Lantus Solostar] 100 unit SUBQ QDBREAKFAST 10/02/20 02/07/23 Tamsulosin [Flomax] 0.4 mg PO DAILY 30 Days #30 cap 10/02/20 02/07/23 Insulin Glargine [Lantus Solostar] 50 units SUBQ QPM 11/27/22 02/07/23 Acetaminophen [Tylenol] 2 tab PO Q6HR PRN 02/07/23 02/24/23 Bisacodyl Supp [Dulcolax Supp] 1 supp ME DAILY PRN 02/07/23 02/07/23 Diclofenac Sodium [Arthritis Pain] 1 applic TOP TID PRN 02/07/23 02/07/23 Losartan [Cozaar] 50 mg PO DAILY 02/07/23 02/07/23 Ondansetron Odt [Zofran Odt] 4 mg PO RTQ6H PRN 02/07/23 02/07/23 Oxycodone HCl [Roxybond] 5 mg PO Q6HR PRN 02/07/23 02/07/23 Sennosides/Docusate Sodium [Senna 2 tab PO PRN 02/07/23 Plus 8.6-50 mg Tablet] diphenhydrAMINE [Benadryl] 1 cap PO BID PRN 02/07/23 02/24/23 polyethylene glycoL 3350 [Miralax] 1 packet PO PRN 02/07/23 cephALEXin [Keflex] 500 mg PO Q6H #20 cap 02/08/23 Ondansetron Odt [Zofran] 4 mg TL Q6H PRN #10 tablet 02/23/23 Ammonium Lactate 1 appful TOP Q8HR 02/24/23 02/24/23 Aspirin [[place] Aspirin] 81 mg PO DAILY 02/24/23 02/24/23 Atorvastatin Calcium 40 mg PO HS 02/24/23 02/24/23 Benzonatate [Tessalon] 100 mg PO Q8HR PRN 02/24/23 02/24/23 Calamine/Zinc Oxide [Calamine 177 ml TP PRN PRN 02/24/23 02/24/23 Lotion] amLODIPine [Norvasc] 5 mg PO DAILY 02/24/23 02/24/23 - Allergies Allergies/Adverse Reactions: Allergies Allergy/AdvReac Type Severity Reaction Status Date / Time pregabalin [From Lyrica] Allergy Intermediate unknown Verified 02/23/23 15:33 simvastatin [From Zocor] Allergy Intermediate Nausea Verified 02/23/23 15:33 sulfamethoxazole Allergy Intermediate unknown Verified 02/23/23 15:33 [From Septra] trimethoprim [From Septra] Allergy Intermediate unknown Verified 02/23/23 15:33 tetracycline [Tetracycline] Allergy Rash Verified 02/23/23 15:33 - Social History Does the pt smoke?: No Smoking Status: Never smoker Does the pt drink ETOH?: No Does the pt have substance abuse?: No - Immunizations Immunizations are current?: Yes - POLST Patient has POLST: No POLST Status: Full Code PD ED PE NORMAL - Vitals Vital signs reviewed: Yes - General General: Alert and oriented X 3, No acute distress, Well developed/nourished - HEENT HEENT: PERRL, Moist mucous membranes - Neck Neck: Supple, no meningeal sign - Cardiac Cardiac: RRR, Strong equal pulses - Respiratory Respiratory: No respiratory distress, Clear bilaterally - Abdomen Abdomen: Soft, Non tender, Non distended - Male Male : Other (obvious BRBPR) - Back Back: No CVA TTP, No spinal TTP - Derm Derm: Warm and dry - Extremities Extremities: No edema, No calf tenderness / cord - Neuro Neuro: Alert and oriented X 3 - Psych Psych: Normal mood, Normal affect Results - Vitals Vitals: Vital Signs - 24 hr 02/24/23 02/24/23 02/24/23 11:03 13:35 14:27 Temperature 36.7 C 36.2 C L Heart Rate 59 L 59 L Heart Rate [ Monitoring electrodes] Respiratory 16 18 11 L Rate Blood Pressure 103/59 L 118/57 L Blood Pressure 146/64 H [Left Brachial artery] O2 Saturation 98 94 96 If not protocol 2 2 : Oxygen Flow, liters/minute 02/24/23 02/24/23 02/24/23 14:43 16:01 16:49 Temperature 36.2 C L 36.1 C L Heart Rate 58 L Heart Rate [ 59 L 59 L Monitoring electrodes] Respiratory 12 12 15 Rate Blood Pressure 118/61 Blood Pressure 147/59 H 154/60 H [Left Brachial artery] O2 Saturation 98 99 99 If not protocol 2 2 2 : Oxygen Flow, liters/minute 02/24/23 02/24/23 19:00 19:18 Temperature 36.6 C Heart Rate 59 L Heart Rate [ Monitoring electrodes] Respiratory 14 Rate Blood Pressure 120/43 L Blood Pressure [Left Brachial artery] O2 Saturation 95 97 If not protocol 2 2 : Oxygen Flow, liters/minute Oxygen O2 Source Nasal cannula - Labs Labs: Laboratory Tests 02/24/23 02/24/23 02/24/23 11:18 11:18 11:18 WBC 5.4 RBC 2.60 L Hgb 7.5 L Hct 23.2 L MCV 89.2 MCH 28.8 MCHC 32.3 RDW 15.0 Plt Count 63 L MPV 9.9 Neut # (Auto) 3.3 Lymph # (Auto) 1.4 L [place] # (Auto) 0.6 Eos # (Auto) 0.2 Baso # (Auto) 0.0 Absolute Nucleated RBC 0.00 Nucleated RBC % 0.0 PT 12.6 INR 1.1 APTT 32.1 Sodium 130 L Potassium 4.4 Chloride 104 Carbon Dioxide 22 Anion Gap 4.0 L BUN 52 H Creatinine 2.3 H Estimated GFR (MDRD) 28 L Glucose 162 H Calcium 8.0 L Total Bilirubin 0.5 AST 23 ALT 15 Alkaline Phosphatase 124 H Total Protein 6.1 L Albumin 2.9 L Globulin 3.2 Albumin/Globulin Ratio 0.9 L Lipase < 10 L Blood Type Antibody Screen Crossmatch IS Only 02/24/23 02/24/23 11:26 19:40 WBC 4.2 L RBC 2.89 L Hgb 8.0 L Hct 25.0 L MCV 86.5 MCH 27.7 MCHC 32.0 RDW 16.3 H Plt Count 52 L MPV 9.7 Neut # (Auto) 2.1 Lymph # (Auto) 1.4 L [place] # (Auto) 0.5 Eos # (Auto) 0.2 Baso # (Auto) 0.0 Absolute Nucleated RBC 0.00 Nucleated RBC % 0.0 PT INR APTT Sodium Potassium Chloride Carbon Dioxide Anion Gap BUN Creatinine Estimated GFR (MDRD) Glucose Calcium Total Bilirubin AST ALT Alkaline Phosphatase Total Protein Albumin Globulin Albumin/Globulin Ratio Lipase Blood Type A POSITIVE Antibody Screen NEGATIVE Crossmatch IS Only See Detail PD Medical Decision Making - ED course Complexity details: reviewed old records, reviewed results, re-evaluated patient, considered differential, d/w patient ED course: 77-year-old male with a history of cirrhosis, chronic thrombocytopenia. He is 5 days status post TAVR. He is not currently anticoagulated. Has a known 40 cm colorectal mass that is awaiting hemicolectomy. This hospital does not have the capabilities to care for this patient, therefore we will attempt to transfer him to [facility] where his care has been given. Discussed the case with Dr. Briones, colorectal surgery at [facility], she recommends transfer for further care. Recommend admission to the hospitalist service. They also recommend vitamin K. The patient is not anticoagulated and not on warfarin, the vitamin K was given. Discussed the case with Dr. Hollins, hospitalist who graciously accepts in transfer. The patient will board in the emergency department here until a bed is available at [facility]. Patient was transfused 1 unit of PRBC. [facility]. He is still awaiting a bed at [facility]. Hemoglobin is stable after transfusion. Departure - Departure Disposition: 02 Transfer Acute Care Hosp Clinical Impression: Hematochezia, Thrombocytopenia Anemia Qualifiers: Anemia type: unspecified type Qualified Code(s): D64.9 - Anemia, unspecified Condition: Stable Forms: PCP List
[2023-02-24 11:32] LABS: PARTIAL THROMBOPLASTIN TIME 32.1 secs (24.9-33.3)
[2023-02-24 11:37] LABS: INR 1.1 (0.8-1.2); PT - PROTHROMBIN TIME 12.6 secs (9.9-12.6)
[2023-02-24] MEDS ORDERED: SODIUM CHLORIDE 0.9% 1,000 ML IV STA ×2 (11:39→23:21)
[2023-02-24 11:56] LABS: ALBUMIN 2.9 g/dL (3.2-5.5); ALBUMIN/GLOBULIN RATIO 0.9 (1.0-2.2); ALKALINE PHOSPHATASE 124 IU/L (42-121); ALT ALANINE AMINOTRANSFERASE 15 IU/L (10-60); AST ASPARTATE AMINOTRANSFERASE 23 IU/L (10-42); BILIRUBIN,TOTAL 0.5 mg/dL (0.2-1.0); BUN - BLOOD UREA NITROGEN 52 mg/dL (6-20); CARBON DIOXIDE - CO2 22 mmol/L (21-32); CHLORIDE 104 mmol/L (101-111); CREATININE 2.3 mg/dL (0.6-1.3); GFR - MDRD 28 (>89); GLUCOSE 162 mg/dL (74-104); POTASSIUM 4.4 mmol/L (3.5-4.5); SODIUM 130 mmol/L (135-145); TOTAL PROTEIN 6.1 g/dL (6.4-8.9)
[2023-02-24 12:10] LABS: LIPASE < 10 U/L (11-82)
[2023-02-24] MEDS ORDERED: PHYTONADIONE 10 MG/ML AMP SUBQ STA (12:56)
[2023-02-24] MEDS: oxyCODONE 5 MG TABLET PO PRN (16:19)
[2023-02-24] MEDS ORDERED: ONDANSETRON 4 MG/2 ML VIAL IVP PRN (19:20)
[2023-02-24] MEDS ORDERED: ACETAMINOPHEN 500 MG TABLET PO PRN (19:20)
[2023-02-24 19:44] LABS: BASOPHILS % (AUTO) 0.5 %; EOSINOPHILS # (AUTO) 0.2 10^3/uL (0.0-0.7); LYMPHOCYTES # (AUTO) 1.4 10^3/uL (1.5-3.5); LYMPHOCYTES % (AUTO) 32.2 %; MEAN CORPUSCULAR HEMOGLOBIN 27.7 pg (27.0-31.0); MEAN CORPUSCULAR VOLUME 86.5 fL (80.0-94.0); MEAN PLATELET VOLUME 9.7 fL (7.4-11.4); MONOCYTES # (AUTO) 0.5 10^3/uL (0.0-1.0); MONOCYTES % (AUTO) 11.9 %; NEUTROPHILS # (AUTO) 2.1 10^3/uL (1.5-6.6); NEUTROPHILS % (AUTO) 49.9 %; PLT - PLATELET COUNT 52 10^3/uL (130-450); RED BLOOD COUNT 2.89 10^6/uL (4.70-6.10); RED CELL DISTRIBUTION WIDTH 16.3 % (12.0-15.0); WHITE BLOOD COUNT 4.2 x10^3/uL (4.8-10.8)
[2023-02-24 23:54] VITALS: O2SAT 95
[2023-02-25] MEDS: oxyCODONE 5 MG TABLET PO PRN (00:10)
[2023-02-25 01:23] VITALS: BP 115/55
[2023-02-25] MEDS ORDERED: PANTOPRAZOLE 40 MG TABLET PO SCH (07:00)
== END 2023-02-25 01:20 | disposition short-term general hospital (02) ==
LOC: EDUNIT# → ED 10:51
DX: K92.1 Melena (principal); D69.6 Thrombocytopenia, unspecified; I10 Essential (primary) hypertension; E78.00 Pure hypercholesterolemia, unspecified; J44.9 Chronic obstructive pulmonary disease, unspecified; E11.42 Type 2 diabetes mellitus with diabetic polyneuropathy; Z79.899 Other long term (current) drug therapy; Z79.4 Long term (current) use of insulin; Z79.82 Long term (current) use of aspirin
CPT/HCPCS: 36415; 36430; 80053; 83690; 85025; 85610; 85730; 86850; 86900; 86901; 86920; 96372; 99284; 99285; A9270; P9016; 80048

== ENCOUNTER 2023-02-27 08:00 | Outpatient (CLI) | payer MEDICARE, OTHER ==
[2023-02-27 19:41] LABS: BASOPHILS % (AUTO) 0.5 %; EOSINOPHILS # (AUTO) 0.2 10^3/uL (0.0-0.7); EOSINOPHILS % (AUTO) 4.5 %; HCT - HEMATOCRIT 23.3 % (42.0-52.0); HGB - HEMOGLOBIN 7.3 g/dL (14.0-18.0); LYMPHOCYTES # (AUTO) 1.3 10^3/uL (1.5-3.5); LYMPHOCYTES % (AUTO) 31.8 %; MEAN CORPUSCULAR HEMOGLOBIN 27.3 pg (27.0-31.0); MEAN CORPUSCULAR HGB CONC 31.3 g/dL (32.0-36.0); MEAN CORPUSCULAR VOLUME 87.3 fL (80.0-94.0); MEAN PLATELET VOLUME 9.9 fL (7.4-11.4); MONOCYTES # (AUTO) 0.4 10^3/uL (0.0-1.0); MONOCYTES % (AUTO) 9.2 %; NEUTROPHILS # (AUTO) 2.3 10^3/uL (1.5-6.6); NEUTROPHILS % (AUTO) 53.5 %; PLT - PLATELET COUNT 67 10^3/uL (130-450); RED BLOOD COUNT 2.67 10^6/uL (4.70-6.10); RED CELL DISTRIBUTION WIDTH 16.1 % (12.0-15.0); WHITE BLOOD COUNT 4.2 x10^3/uL (4.8-10.8)
== END 2023-02-27 23:59 | disposition home or self-care (01) ==
LOC: LAB.R 08:00
PROVIDERS: ATTEND Registered Nurse
DX: D69.6 Thrombocytopenia, unspecified (principal)
CPT/HCPCS: 85025

== ENCOUNTER 2023-03-04 08:00 | Outpatient (CLI) | payer MEDICARE, OTHER ==
[2023-03-04 18:02] LABS: BASOPHILS % (AUTO) 0.5 %; EOSINOPHILS # (AUTO) 0.2 10^3/uL (0.0-0.7); EOSINOPHILS % (AUTO) 2.9 %; HCT - HEMATOCRIT 25.4 % (42.0-52.0); HGB - HEMOGLOBIN 7.9 g/dL (14.0-18.0); LYMPHOCYTES # (AUTO) 1.5 10^3/uL (1.5-3.5); LYMPHOCYTES % (AUTO) 25.1 %; MEAN CORPUSCULAR HEMOGLOBIN 27.2 pg (27.0-31.0); MEAN CORPUSCULAR HGB CONC 31.1 g/dL (32.0-36.0); MEAN CORPUSCULAR VOLUME 87.6 fL (80.0-94.0); MONOCYTES # (AUTO) 0.6 10^3/uL (0.0-1.0); MONOCYTES % (AUTO) 10.6 %; NEUTROPHILS # (AUTO) 3.6 10^3/uL (1.5-6.6); NEUTROPHILS % (AUTO) 59.9 %; PLT - PLATELET COUNT 127 10^3/uL (130-450); RED CELL DISTRIBUTION WIDTH 15.5 % (12.0-15.0); WHITE BLOOD COUNT 5.9 x10^3/uL (4.8-10.8)
== END 2023-03-04 23:59 | disposition home or self-care (01) ==
LOC: LAB.R 08:00
PROVIDERS: ATTEND Registered Nurse
DX: R79.9 Abnormal finding of blood chemistry, unspecified (principal)
CPT/HCPCS: 85025

== ENCOUNTER 2023-06-01 02:23 | Outpatient (CLI) | payer MEDICARE, OTHER | END 2023-06-01 02:24 | disposition critical access hospital (66) | LOC: EMS 02:23 | DX: R10.30 Lower abdominal pain, unspecified (principal); T83.021A Displacement of indwelling urethral catheter, initial encounter | CPT/HCPCS: A0425; A0429 ==

== ENCOUNTER 2023-06-01 02:56 | Emergency (ER) | payer MEDICARE, OTHER ==
[2023-06-01 03:06] VITALS: BP 122/71; O2SAT 99
--- NOTE | 2023-06-01 03:12 | ED Physician Documentation ---
PD HPI MALE - Stated complaint Stated Complaint: OBSTRUCTED CATHETER - Chief complaint Chief Complaint: Abd Pain - History obtained from History obtained from: Patient - Additional information Additional information: Patient is a 77-year-old male presenting for evaluation of Mahan catheter problem. He is currently residing at [facility] reports that the catheter stopped draining around midnight. It is unclear when this catheter was placed or how long it has been in. Patient denies any fever, hematuria. Review of Systems Constitutional: denies: Fever Cardiac: denies: Chest pain / pressure Respiratory: denies: Dyspnea GI: denies: Abdominal Pain : reports: Unable to Void PD PAST MEDICAL HISTORY - Past Medical History Cardiovascular: Hypertension, High cholesterol, Coronary artery disease, Peripheral Vascular Disease, [place] Respiratory: COPD, Shortness of breath Neuro: Peripheral neuropathy Endocrine/Autoimmune: Type 2 diabetes GI: GI bleed : Nocturia, Frequency, Kidney stones Psych: Anxiety, Panic attacks Musculoskeletal: Fibromyalgia, Chronic back pain - Past Surgical History Past Surgical History: Yes Ortho: Amputation Cardiovascular: Coronary stent HEENT: Cataracts - Present Medications Home Medications: Ambulatory Orders Medication Instructions Recorded Confirmed Furosemide 40 mg PO DAILY 12/30/17 02/24/23 Gabapentin [Neurontin] 300 mg PO TID 06/01/18 02/24/23 Insulin Glargine [Lantus Solostar] 25 units SUBQ BID 11/27/22 02/24/23 Acetaminophen [Tylenol] 2 tab PO Q6HR PRN 02/07/23 02/24/23 Bisacodyl Supp [Dulcolax Supp] 1 supp ND DAILY PRN 02/07/23 02/24/23 Diclofenac Sodium [Arthritis Pain] 1 applic TOP Q8HR PRN 02/07/23 02/24/23 Oxycodone HCl [Roxybond] 5 mg PO Q6HR PRN 02/07/23 02/24/23 diphenhydrAMINE [Benadryl] 1 cap PO BID PRN 02/07/23 02/24/23 Ondansetron Odt [Zofran] 4 mg TL Q6H PRN #10 tablet 02/23/23 02/24/23 Ammonium Lactate 1 appful TOP Q8HR 02/24/23 02/24/23 Aspirin [[place] Aspirin] 81 mg PO DAILY 02/24/23 02/24/23 Atorvastatin Calcium 40 mg PO HS 02/24/23 02/24/23 Benzonatate [Tessalon] 100 mg PO Q8HR PRN 02/24/23 02/24/23 Calamine/Zinc Oxide [Calamine 177 ml TP PRN PRN 02/24/23 02/24/23 Lotion] Insulin Lispro [Humalog] SUBQ ONCE 02/24/23 Loperamide [Imodium] 2 mg PO ONCE 02/24/23 02/24/23 Melatonin 3 mg PO HS 02/24/23 02/24/23 Metoclopramide [Reglan] 5 mg PO TID PRN 02/24/23 02/24/23 Mineral Oil [Mineral Oil Enema] 1 ea RC ONCE PRN 02/24/23 02/24/23 Naloxone HCl Nasal [Narcan Nasal] 4 mg NS PRN PRN 02/24/23 02/24/23 Sennosides [Senna] 2 tab PO PRN PRN 02/24/23 02/24/23 Sodium Chloride [Saline Nasal 1 - 2 spr NS Q6HR PRN 02/24/23 02/24/23 [place]] Spironolactone [Aldactone] 25 mg PO HS 02/24/23 02/24/23 Tamsulosin [Flomax] 0.8 mg PO DAILY 02/24/23 02/24/23 amLODIPine [Norvasc] 5 mg PO DAILY 02/24/23 02/24/23 carvediloL [Coreg] 6.25 mg PO BID 02/24/23 02/24/23 guaiFENesin [Tussin] 100 mg PO Q6HR PRN 02/24/23 02/24/23 polyethylene glycoL 3350 [Miralax] 17 gm PO DAILY PRN 02/24/23 02/24/23 - Allergies Allergies/Adverse Reactions: Allergies Allergy/AdvReac Type Severity Reaction Status Date / Time pregabalin [From Lyrica] Allergy Intermediate unknown Verified 02/23/23 15:33 simvastatin [From Zocor] Allergy Intermediate Nausea Verified 02/23/23 15:33 sulfamethoxazole Allergy Intermediate unknown Verified 02/23/23 15:33 [From Septra] trimethoprim [From Septra] Allergy Intermediate unknown Verified 02/23/23 15:33 tetracycline [Tetracycline] Allergy Rash Verified 02/23/23 15:33 - Social History Does the pt smoke?: No Smoking Status: Never smoker Does the pt drink ETOH?: No Does the pt have substance abuse?: No - Immunizations Immunizations are current?: Yes - POLST Patient has POLST: No POLST Status: Full Code PD ED PE NORMAL - General General: Alert and oriented X 3, No acute distress, Well developed/nourished - HEENT HEENT: Atraumatic - Neck Neck: Supple, no meningeal sign - Cardiac Cardiac: RRR - Respiratory Respiratory: No respiratory distress, Clear bilaterally - Abdomen Abdomen: Normal bowel sounds, Soft, Non distended, Other (Mild suprapubic tenderness) - Male Male : Other (Indwelling catheter in place) - Neuro Neuro: Normal speech Results - Vitals Vitals: Vital Signs - 24 hr 06/01/23 03:04 Temperature 36.6 C Heart Rate 70 Respiratory 18 Rate Blood Pressure 122/71 O2 Saturation 99 Oxygen O2 Source Room air PD Medical Decision Making - ED course ED course: Patient is a 77-year-old male from [facility] presenting for issues with his indwelling catheter. Unclear when this catheter was placed and EMS is also unsure. No fever or other symptoms to suggest infection. Catheter just after working a few hours ago. New catheter was placed without any difficulty by RN. Patient is feeling better and transported back to [facility] by EMS. Departure - Departure Disposition: 01 Home, Self Care Clinical Impression: Mahan catheter problem Condition: Stable Instructions: ED Catheter Care Mahan Comments: Your Mahan catheter was replaced this evening as it was not draining well. Return to the ER with any worsening symptoms. Forms: PCP List Discharge Date/Time: 06/01/23 03:44
== END 2023-06-01 03:44 | disposition home or self-care (01) ==
LOC: ED 02:56
DX: T83.098A Other mechanical complication of other urinary catheter, initial encounter (principal); I10 Essential (primary) hypertension; E11.9 Type 2 diabetes mellitus without complications; Z79.4 Long term (current) use of insulin
CPT/HCPCS: 51702; 99283

== ENCOUNTER 2023-06-01 03:37 | Outpatient (CLI) | payer MEDICARE, OTHER | END 2023-06-01 23:59 | disposition home or self-care (01) | LOC: EMS 03:37 | PROVIDERS: ATTEND Emergency Medicine | DX: L89.309 Pressure ulcer of unspecified buttock, unspecified stage (principal); T83.9XXA Unspecified complication of genitourinary prosthetic device, implant and graft, initial encounter; Z89.511 Acquired absence of right leg below knee | CPT/HCPCS: A0425; A0428 ==

== ENCOUNTER 2023-06-06 22:33 | Outpatient (CLI) | payer MEDICARE, OTHER | END 2023-06-06 22:34 | disposition critical access hospital (66) | LOC: EMS 22:33 | DX: K92.1 Melena (principal); R10.84 Generalized abdominal pain; L89.309 Pressure ulcer of unspecified buttock, unspecified stage; R39.89 Other symptoms and signs involving the genitourinary system | CPT/HCPCS: A0425; A0429 ==

== ENCOUNTER 2023-06-06 23:01 | Emergency (ER) | payer MEDICARE, OTHER ==
[2023-06-06 23:40] VITALS: O2SAT 98
[2023-06-06 23:41] LABS: BILIRUBIN,URINE NEGATIVE (NEGATIVE); GLUCOSE, URINE (UA) NEGATIVE (NEGATIVE); KETONES,URINE (UA) NEGATIVE (NEGATIVE); LEUKOCYTE ESTERASE, URINE LARGE (NEGATIVE); NITRITE,URINE POSITIVE (NEGATIVE); OCCULT BLOOD,URINE MODERATE (NEGATIVE); PROTEIN,URINE 100 mg/dL (NEGATIVE); UROBILINOGEN,URINE 0.2 (NORMAL) E.U./dL (NORMAL)
[2023-06-06 23:45] LABS: BASOPHILS # (AUTO) 0.1 10^3/uL (0.0-0.1); BASOPHILS % (AUTO) 1.1 %; EOSINOPHILS # (AUTO) 0.4 10^3/uL (0.0-0.7); EOSINOPHILS % (AUTO) 6.1 %; HCT - HEMATOCRIT 29.3 % (42.0-52.0); HGB - HEMOGLOBIN 8.8 g/dL (14.0-18.0); LYMPHOCYTES # (AUTO) 1.5 10^3/uL (1.5-3.5); LYMPHOCYTES % (AUTO) 23.7 %; MEAN CORPUSCULAR HEMOGLOBIN 25.1 pg (27.0-31.0); MEAN CORPUSCULAR VOLUME 83.5 fL (80.0-94.0); MEAN PLATELET VOLUME 9.5 fL (7.4-11.4); MONOCYTES # (AUTO) 0.6 10^3/uL (0.0-1.0); MONOCYTES % (AUTO) 8.6 %; NEUTROPHILS # (AUTO) 3.8 10^3/uL (1.5-6.6); NEUTROPHILS % (AUTO) 59.7 %; PLT - PLATELET COUNT 90 10^3/uL (130-450); RED BLOOD COUNT 3.51 10^6/uL (4.70-6.10); RED CELL DISTRIBUTION WIDTH 15.7 % (12.0-15.0); WHITE BLOOD COUNT 6.4 x10^3/uL (4.8-10.8)
[2023-06-06 23:50] LABS: CLARITY,URINE CLOUDY (CLEAR)
[2023-06-06 23:54] LABS: BACTERIA,URINE Many /HPF (None Seen); SQUAMOUS EPITHELIAL CELL,UR NONE SEEN (<= Few); WBC CLUMPS,URINE PRESENT
[2023-06-06 23:59] LABS: ALBUMIN 2.8 g/dL (3.2-5.5); ALBUMIN/GLOBULIN RATIO 0.7 (1.0-2.2); BILIRUBIN,TOTAL 0.4 mg/dL (0.2-1.0); CALCIUM 8.7 mg/dL (8.5-10.3); CREATININE 1.6 mg/dL (0.6-1.3); POTASSIUM 3.9 mmol/L (3.5-4.5)
[2023-06-07] MEDS ORDERED: iohexoL-300 100 ML VIAL ONE (00:37)
[2023-06-07] MEDS: SODIUM CHLORIDE 0.9% 1,000 ML IV STA (00:42)
[2023-06-07] MEDS: iohexoL-300 100 ML VIAL IVP ONE (01:08)
--- NOTE | 2023-06-07 01:32 | CT Report ---
PROCEDURE: Abdomen/Pelvis W INDICATIONS: BL LQ pain CONTRAST: omni 300, 100mls TECHNIQUE: After the administration of intravenous contrast, a CT scan of the abdomen and pelvis was performed. Images were recorded and evaluated at appropriate window settings. Reformats: coronal and sagittal. F or radiation dose reduction, the following was used: automated exposure control, adjustment of mA and /or kV according to patient size. COMPARISON: 11/26/2022. FINDINGS: Image quality: Diagnostic. Lower chest: Moderate size airspace opacity in posterior aspect of right lower lobe is noted. Left sherif ng base is clear. Heart size is normal, no pericardial effusion. Prosthetic aortic valve is seen. Liver: No solid mass. Slightly lobulated liver contour is seen. Decreased liver parenchymal density s uggestive of moderate hepatic steatosis. Gallbladder and biliary tree: Cholelithiasis without wall thickening. No biliary dilation. Spleen: Enlarged. Pancreas: No pancreatic ductal dilation. Adrenals: No adrenal nodule. Kidneys and ureters: 3 mm nonobstructing right renal calculus. Numerous simple appearing left renal c ysts are seen and measures up to 3 x 2.2 cm in size in midpole left kidney series 2 image 62. No hydr onephrosis. No renal cystic lesion which requires follow up. No solid mass. Stomach, bowel and peritoneum: There is no bowel obstruction. No gross abnormal bowel wall thickening or mesenteric fat stranding. No abscess collection. No free fluid of free air. Appendix is visualize d in right lower quadrant abdomen without significant appendiceal wall thickening or periappendiceal fat stranding. Mild descending colon and sigmoid colon diverticulosis is seen without definite wall t hickening or pericolonic fat stranding. Nonspecific fat stranding within left lower quadrant mesenter y is seen. Lymph nodes: No central or retroperitoneal adenopathy. Vessels: No infrarenal aortic aneurysm. PELVIS Reproductive organs: Unremarkable. Bladder: There is diffuse lateral wall thickening with adjacent fat stranding. Mahan catheter is seen within bladder lumen.. Pelvic lymph nodes: Mildly prominent left inguinal lymph nodes are seen measures up to 7 to 8 mm in s ize. Bones: No aggressive osseous abnormality. Other: No significant ventral or inguinal hernia. IMPRESSION: 1. Marked bladder wall thickening containing Mahan catheter. Suggestion of pericystic fat stranding. Finding is concerning for infectious inflammatory cystitis. No definite bladder wall mass is seen. 2. Right-sided nonobstructing renal calculi. Numerous left renal cysts. No hydronephrosis or solid ap pearing renal lesion. 3. Moderate-sized right basilar infiltrate versus atelectasis. 4. Hepatomegaly and hepatic steatosis. Lobulated liver contour which could represent early cirrhosis. 5. No bowel obstruction or abnormal bowel wall thickening. Sigmoid diverticulosis without CT evidence of acute diverticulitis. Normal appendix. Reviewed by: Tayo Acosta MD on 06/07/2023 1:31 AM PST Approved by: Tayo Acosta MD on 06/07/2023 1:31 AM PST Station ID: [id number]
[2023-06-07] MEDS: MORPHINE 2 MG/ML CARPUJECT IVP STA (01:53)
--- NOTE | 2023-06-07 02:46 | ED Physician Documentation ---
History of Present Illness - Stated complaint Stated Complaint: ABD PAIN, BLOODY STOOL - Chief complaint Chief Complaint: Abd Pain - History obtained from History obtained from: Patient - Additonal information Additional information: 77yM with pmh dm, cad, as, copd, ckd, colon cancer, cirrhosis, R bka, p/w BL LQ pain today and dark stool as well as concern about full body aches and catheter sediment/pain from urinary catheter. denies fever, hematuria, back pain. PD PAST MEDICAL HISTORY - Past Medical History Past Medical History: Yes Cardiovascular: Hypertension, High cholesterol, Coronary artery disease, Peripheral Vascular Disease, [place] Respiratory: COPD, Shortness of breath Neuro: Peripheral neuropathy Endocrine/Autoimmune: Type 2 diabetes GI: GI bleed : Nocturia, Frequency, Kidney stones Psych: Anxiety, Panic attacks Musculoskeletal: Fibromyalgia, Chronic back pain - Past Surgical History Past Surgical History: Yes Ortho: Amputation Cardiovascular: Coronary stent HEENT: Cataracts - Present Medications Home Medications: Ambulatory Orders Medication Instructions Recorded Confirmed Furosemide 40 mg PO DAILY 12/30/17 02/24/23 Gabapentin [Neurontin] 300 mg PO TID 06/01/18 02/24/23 Insulin Glargine [Lantus Solostar] 25 units SUBQ BID 11/27/22 02/24/23 Acetaminophen [Tylenol] 2 tab PO Q6HR PRN 02/07/23 02/24/23 Bisacodyl Supp [Dulcolax Supp] 1 supp UT DAILY PRN 02/07/23 02/24/23 Diclofenac Sodium [Arthritis Pain] 1 applic TOP Q8HR PRN 02/07/23 02/24/23 Oxycodone HCl [Roxybond] 5 mg PO Q6HR PRN 02/07/23 02/24/23 diphenhydrAMINE [Benadryl] 1 cap PO BID PRN 02/07/23 02/24/23 Ondansetron Odt [Zofran] 4 mg TL Q6H PRN #10 tablet 02/23/23 02/24/23 Ammonium Lactate 1 appful TOP Q8HR 02/24/23 02/24/23 Aspirin [[place] Aspirin] 81 mg PO DAILY 02/24/23 02/24/23 Atorvastatin Calcium 40 mg PO HS 02/24/23 02/24/23 Benzonatate [Tessalon] 100 mg PO Q8HR PRN 02/24/23 02/24/23 Calamine/Zinc Oxide [Calamine 177 ml TP PRN PRN 02/24/23 02/24/23 Lotion] Insulin Lispro [Humalog] SUBQ ONCE 02/24/23 Loperamide [Imodium] 2 mg PO ONCE 02/24/23 02/24/23 Melatonin 3 mg PO HS 02/24/23 02/24/23 Metoclopramide [Reglan] 5 mg PO TID PRN 02/24/23 02/24/23 Mineral Oil [Mineral Oil Enema] 1 ea RC ONCE PRN 02/24/23 02/24/23 Naloxone HCl Nasal [Narcan Nasal] 4 mg NS PRN PRN 02/24/23 02/24/23 Sennosides [Senna] 2 tab PO PRN PRN 02/24/23 02/24/23 Sodium Chloride [Saline Nasal 1 - 2 spr NS Q6HR PRN 02/24/23 02/24/23 [place]] Spironolactone [Aldactone] 25 mg PO HS 02/24/23 02/24/23 Tamsulosin [Flomax] 0.8 mg PO DAILY 02/24/23 02/24/23 amLODIPine [Norvasc] 5 mg PO DAILY 02/24/23 02/24/23 carvediloL [Coreg] 6.25 mg PO BID 02/24/23 02/24/23 guaiFENesin [Tussin] 100 mg PO Q6HR PRN 02/24/23 02/24/23 polyethylene glycoL 3350 [Miralax] 17 gm PO DAILY PRN 02/24/23 02/24/23 Cefpodoxime Proxetil [Vantin] 200 mg PO Q12H #28 tablet 06/07/23 - Allergies Allergies/Adverse Reactions: Allergies Allergy/AdvReac Type Severity Reaction Status Date / Time pregabalin [From Lyrica] Allergy Intermediate unknown Verified 06/06/23 23:29 simvastatin [From Zocor] Allergy Intermediate Nausea Verified 06/06/23 23:29 sulfamethoxazole Allergy Intermediate unknown Verified 06/06/23 23:29 [From Septra] trimethoprim [From Septra] Allergy Intermediate unknown Verified 06/06/23 23:29 tetracycline [Tetracycline] Allergy Rash Verified 06/06/23 23:29 - Social History Does the pt smoke?: No Smoking Status: Never smoker Does the pt drink ETOH?: No Does the pt have substance abuse?: No - Immunizations Immunizations are current?: Yes - POLST Patient has POLST: No POLST Status: Full Code PD ED PE NORMAL - Vitals Vital signs reviewed: Yes - General General: Alert and oriented X 3, No acute distress, Well developed/nourished - HEENT HEENT: Atraumatic, PERRL, EOMI - Neck Neck: Supple, no meningeal sign - Cardiac Cardiac: RRR - Respiratory Respiratory: No respiratory distress, Clear bilaterally - Abdomen Abdomen: Non tender, Non distended, Other (discomfort BL LQ) - Back Back: No CVA TTP - Derm Derm: Normal color, Warm and dry - Neuro Neuro: Alert and oriented X 3 Results - Vitals Vitals: Vital Signs - 24 hr 06/06/23 06/07/23 23:20 01:48 Temperature 37.1 C Heart Rate 72 68 Respiratory 18 14 Rate Blood Pressure 150/64 H 167/79 H O2 Saturation 98 98 Oxygen O2 Source Room air - Labs Labs: Laboratory Tests 06/06/23 06/06/23 06/06/23 23:30 23:34 23:34 WBC 6.4 RBC 3.51 L Hgb 8.8 L Hct 29.3 L MCV 83.5 MCH 25.1 L MCHC 30.0 L RDW 15.7 H Plt Count 90 L MPV 9.5 Neut # (Auto) 3.8 Lymph # (Auto) 1.5 [place] # (Auto) 0.6 Eos # (Auto) 0.4 Baso # (Auto) 0.1 Absolute Nucleated RBC 0.00 Nucleated RBC % 0.0 Sodium 134 L Potassium 3.9 Chloride 108 Carbon Dioxide 19 L Anion Gap 7.0 BUN 32 H Creatinine 1.6 H Estimated GFR (MDRD) 42 L Glucose 183 H Calcium 8.7 Total Bilirubin 0.4 AST 23 ALT 25 Alkaline Phosphatase 161 H Total Protein 7.0 Albumin 2.8 L Globulin 4.2 Albumin/Globulin Ratio 0.7 L Lipase 25 Urine Color YELLOW Urine Clarity CLOUDY Urine pH 8.0 H Ur Specific [place] 1.015 Urine Protein 100 H Urine Glucose (UA) NEGATIVE Urine Ketones NEGATIVE Urine Occult Blood MODERATE H Urine Nitrite POSITIVE H Urine Bilirubin NEGATIVE Urine Urobilinogen 0.2 (NORMAL) Ur Leukocyte Esterase LARGE H Urine RBC 6-10 H Urine WBC 11-25 H Urine WBC Clumps PRESENT Ur Squamous Epith Cells NONE SEEN Urine Bacteria Many H Ur Microscopic Review INDICATED Urine Culture Comments INDICATED PD Medical Decision Making - ED course ED course: 77yM presented with BL LQ abdominal pain and dark stool. Pain improved s/p IV morphine and dilaudid. IVF provided as well to flush contrast from CT. CT showed only possible cystitis and some incidental findings which were provided to the patient. Hemoglobin is stable at 8.8 (previous 7.9 03/04/23). Cre 1.6 (previous 2.3 02/24/23). u/a shows nitrites and therefore will treat given he is having catheter site pain, lower abdominal pain and has findings on CT of cystitis. antibiotics sent to pharmacy. return precuations given. Departure - Departure Disposition: 01 Home, Self Care Clinical Impression: UTI (urinary tract infection) Condition: Stable Instructions: ED UTI Cystitis Male Prescriptions: Cefpodoxime Proxetil [Vantin] 200 mg PO Q12H #28 tablet Comments: You were seen in the emergency department for abdominal pain and found to have uti. Your blood hemoglobin level is stable and you can follow up with gastroenterology as an outpatient to schedule endoscopy and/or colonoscopy to investigate the cause of your intestinal bleeding. Prescription for antibiotics sent to [facility]. Please also follow-up with your primary care provider and return to the emergency department if you have any new or worsening symptoms or other concerns. Forms: PCP List
[2023-06-07] MEDS ORDERED: cefTRIAXone 1 GM VIAL ONE (02:58)
[2023-06-07] MEDS: cefTRIAXone 1 GM in SODIUM CHLORIDE 0.9% MINIBAG 100 ML IV STA (03:06)
[2023-06-07] MEDS: HYDROmorphone 1 MG/ML CARPUJECT IVP STA (03:07)
[2023-06-07 04:15] VITALS: BP 133/99
--- NOTE | 2023-06-09 18:31 | ED Physician Documentation ---
ED Addendum - Addendum Addendum: 06/09/23 18:31 Culture reviewed, he was sent home on cefpodoxime which is appropriate.
== END 2023-06-07 04:07 | disposition home or self-care (01) ==
LOC: EDUNIT# → ED 23:01
DX: T83.518A Infection and inflammatory reaction due to other urinary catheter, initial encounter (principal); N39.0 Urinary tract infection, site not specified; K92.1 Melena; E11.9 Type 2 diabetes mellitus without complications; Z79.4 Long term (current) use of insulin
CPT/HCPCS: 36415; 74177; 80053; 81001; 83690; 85025; 87077; 87086; 87181; 96361; 96365; 96375; 99284; J1170; Q9967; 81003

== ENCOUNTER 2023-06-07 03:46 | Outpatient (CLI) | payer MEDICARE, OTHER | END 2023-06-07 23:59 | disposition home or self-care (01) | LOC: EMS 03:46 | PROVIDERS: ATTEND Emergency Medicine | DX: Z74.01 Bed confinement status (principal); N39.0 Urinary tract infection, site not specified; R19.5 Other fecal abnormalities; L89.90 Pressure ulcer of unspecified site, unspecified stage | CPT/HCPCS: A0425; A0428 ==

== ENCOUNTER 2023-06-19 15:24 | Outpatient (CLI) | payer MEDICARE, OTHER | END 2023-06-19 23:59 | disposition critical access hospital (66) | LOC: EMS 15:24 | DX: N48.89 Other specified disorders of penis (principal); R39.89 Other symptoms and signs involving the genitourinary system | CPT/HCPCS: A0425; A0427 ==

== ENCOUNTER 2023-06-19 15:52 | Emergency (ER) | payer MEDICARE, OTHER ==
--- NOTE | 2023-06-19 16:22 | ED Physician Documentation ---
PD HPI ABD PAIN - Stated complaint Stated Complaint: CATH ISSUE - Chief complaint Chief Complaint: Abd Pain - History obtained from History obtained from: Patient - Additional information Additional information: 77-year-old gentleman with history of diabetes, obesity, alcohol use, coronary disease, peripheral vascular disease, right BKA, recurrent UTIs, and BPH has been bedbound with Mahan dependence for the last 6 months or so. He is in assisted living. Presents today because his catheter is clogged causing severe pain, and severe penile pain with bloody urine. PD PAST MEDICAL HISTORY - Past Medical History Past Medical History: Yes Cardiovascular: Hypertension, High cholesterol, Coronary artery disease, Peripheral Vascular Disease, [place] Respiratory: COPD, Shortness of breath Neuro: Peripheral neuropathy Endocrine/Autoimmune: Type 2 diabetes GI: GI bleed : Nocturia, Frequency, Kidney stones Psych: Anxiety, Panic attacks Musculoskeletal: Fibromyalgia, Chronic back pain - Past Surgical History Past Surgical History: Yes Ortho: Amputation Cardiovascular: Coronary stent HEENT: Cataracts - Present Medications Home Medications: Ambulatory Orders Medication Instructions Recorded Confirmed Furosemide 40 mg PO DAILY 12/30/17 02/24/23 Gabapentin [Neurontin] 300 mg PO TID 06/01/18 02/24/23 Insulin Glargine [Lantus Solostar] 25 units SUBQ BID 11/27/22 02/24/23 Acetaminophen [Tylenol] 2 tab PO Q6HR PRN 02/07/23 02/24/23 Bisacodyl Supp [Dulcolax Supp] 1 supp [place] DAILY PRN 02/07/23 02/24/23 Diclofenac Sodium [Arthritis Pain] 1 applic TOP Q8HR PRN 02/07/23 02/24/23 Oxycodone HCl [Roxybond] 5 mg PO Q6HR PRN 02/07/23 02/24/23 diphenhydrAMINE [Benadryl] 1 cap PO BID PRN 02/07/23 02/24/23 Ondansetron Odt [Zofran] 4 mg TL Q6H PRN #10 tablet 02/23/23 02/24/23 Ammonium Lactate 1 appful TOP Q8HR 02/24/23 02/24/23 Aspirin [[place] Aspirin] 81 mg PO DAILY 02/24/23 02/24/23 Atorvastatin Calcium 40 mg PO HS 02/24/23 02/24/23 Benzonatate [Tessalon] 100 mg PO Q8HR PRN 02/24/23 02/24/23 Calamine/Zinc Oxide [Calamine 177 ml TP PRN PRN 02/24/23 02/24/23 Lotion] Insulin Lispro [Humalog] SUBQ ONCE 02/24/23 Loperamide [Imodium] 2 mg PO ONCE 02/24/23 02/24/23 Melatonin 3 mg PO HS 02/24/23 02/24/23 Metoclopramide [Reglan] 5 mg PO TID PRN 02/24/23 02/24/23 Mineral Oil [Mineral Oil Enema] 1 ea RC ONCE PRN 02/24/23 02/24/23 Naloxone HCl Nasal [Narcan Nasal] 4 mg NS PRN PRN 02/24/23 02/24/23 Sennosides [Senna] 2 tab PO PRN PRN 02/24/23 02/24/23 Sodium Chloride [Saline Nasal 1 - 2 spr NS Q6HR PRN 02/24/23 02/24/23 [place]] Spironolactone [Aldactone] 25 mg PO HS 02/24/23 02/24/23 Tamsulosin [Flomax] 0.8 mg PO DAILY 02/24/23 02/24/23 amLODIPine [Norvasc] 5 mg PO DAILY 02/24/23 02/24/23 carvediloL [Coreg] 6.25 mg PO BID 02/24/23 02/24/23 guaiFENesin [Tussin] 100 mg PO Q6HR PRN 02/24/23 02/24/23 polyethylene glycoL 3350 [Miralax] 17 gm PO DAILY PRN 02/24/23 02/24/23 Cefpodoxime Proxetil [Vantin] 200 mg PO Q12H #28 tablet 06/07/23 Ciprofloxacin [Cipro] 250 mg PO Q12H #20 tablet 06/19/23 - Allergies Allergies/Adverse Reactions: Allergies Allergy/AdvReac Type Severity Reaction Status Date / Time pregabalin [From Lyrica] Allergy Intermediate unknown Verified 06/19/23 16:03 simvastatin [From Zocor] Allergy Intermediate Nausea Verified 06/19/23 16:03 sulfamethoxazole Allergy Intermediate unknown Verified 06/19/23 16:03 [From Septra] trimethoprim [From Septra] Allergy Intermediate unknown Verified 06/19/23 16:03 tetracycline [Tetracycline] Allergy Rash Verified 06/19/23 16:03 - Social History Does the pt smoke?: No Smoking Status: Never smoker Does the pt drink ETOH?: No Does the pt have substance abuse?: No - Immunizations Immunizations are current?: Yes - POLST Patient has POLST: No POLST Status: Full Code PD ED PE NORMAL - Vitals Vital signs reviewed: Yes - General General: Alert and oriented X 3, No acute distress - Abdomen Abdomen: Non tender, Other (Mahan catheter in place, there is meatal inflammation and the catheter appears clogged with no urine in the bag.) - Neuro Neuro: Alert and oriented X 3 Results - Vitals Vitals: Vital Signs - 24 hr 06/19/23 06/19/23 16:00 16:42 Temperature 36.2 C L Heart Rate 68 85 Respiratory 19 19 Rate Blood Pressure 119/72 146/78 H O2 Saturation 97 95 Oxygen O2 Source Room air - Labs Labs: Laboratory Tests 06/19/23 18:20 Urine Color YELLOW Urine Clarity CLOUDY Urine pH 6.0 Ur Specific [place] 1.025 Urine Protein 100 H Urine Glucose (UA) NEGATIVE Urine Ketones NEGATIVE Urine Occult Blood LARGE H Urine Nitrite NEGATIVE Urine Bilirubin NEGATIVE Urine Urobilinogen 0.2 (NORMAL) Ur Leukocyte Esterase MODERATE H Urine RBC TNTC H Urine WBC >25 H Ur Squamous Epith Cells NONE SEEN Urine Bacteria Rare Ur Microscopic Review INDICATED Urine Culture Comments INDICATED PD Medical Decision Making - ED course ED course: 78-year-old gentleman presents with severe pelvic pain and penile pain, blocked catheter. His catheter was replaced and he does have pyuria here, given his underlying symptoms seems reasonable to treat and was given Cipro after review of prior cultures. He was having a lot of pain and was treated with both IM Dilaudid and morphine with good effect. Departure - Departure Disposition: 01 Home, Self Care Clinical Impression: Recurrent UTI Condition: Stable Record reviewed to determine appropriate education?: Yes Instructions: ED UTI Cystitis Male Prescriptions: Ciprofloxacin [Cipro] 250 mg PO Q12H #20 tablet Comments: I sent your prescription electronically to the [facility] in [place]. You are seen today for a blocked catheter causing significant pain. Given the pain urinalysis was checked and does show evidence of bacteria and signs of infection and I am treating you with ciprofloxacin, an antibiotic. We will culture your urine, the results should be done in 48-72 hours. If an antibiotic change is necessary we will call you. Return if worse in the meantime, especially if you develop increasing flank pain, fevers, or cannot keep down the medication. Plan to follow-up with your primary care physician next week for recheck. Forms: PCP List
[2023-06-19] MEDS: HYDROmorphone 1 MG/ML CARPUJECT IM STA (16:34)
[2023-06-19] MEDS: MORPHINE 10 MG/ML VIAL IM STA (18:13)
[2023-06-19 18:32] LABS: BILIRUBIN,URINE NEGATIVE (NEGATIVE); CLARITY,URINE CLOUDY (CLEAR); GLUCOSE, URINE (UA) NEGATIVE (NEGATIVE); KETONES,URINE (UA) NEGATIVE (NEGATIVE); LEUKOCYTE ESTERASE, URINE MODERATE (NEGATIVE); NITRITE,URINE NEGATIVE (NEGATIVE); OCCULT BLOOD,URINE LARGE (NEGATIVE); PROTEIN,URINE 100 mg/dL (NEGATIVE); UROBILINOGEN,URINE 0.2 (NORMAL) E.U./dL (NORMAL)
[2023-06-19 18:40] LABS: BACTERIA,URINE Rare /HPF (None Seen); RBC,URINE TNTC /HPF (0-5); SQUAMOUS EPITHELIAL CELL,UR NONE SEEN (<= Few); WBC,URINE >25 /HPF (0-3)
[2023-06-19] MEDS: CIPROFLOXACIN 250 MG TABLET PO STA (19:31)
[2023-06-19] MEDS: diphenhydrAMINE 25 MG CAPSULE PO STA (19:31)
[2023-06-19 20:26] VITALS: BP 126/68; O2SAT 99
== END 2023-06-19 20:20 | disposition home or self-care (01) ==
LOC: EDUNIT# → ED 15:52
DX: T83.091A Other mechanical complication of indwelling urethral catheter, initial encounter (principal); N48.89 Other specified disorders of penis; R82.81 Pyuria
CPT/HCPCS: 51702; 81001; 87086; 96372; 99284; A9270; J1170; 81003; 87077; 87181

== ENCOUNTER 2023-06-19 20:24 | Outpatient (CLI) | payer MEDICARE, OTHER | END 2023-06-19 20:25 | disposition home or self-care (01) | LOC: EMS 20:24 | PROVIDERS: ATTEND Emergency Medicine | DX: R10.9 Unspecified abdominal pain (principal); E66.01 Morbid (severe) obesity due to excess calories; Z74.01 Bed confinement status; Z89.519 Acquired absence of unspecified leg below knee | CPT/HCPCS: A0425; A0428 ==

== ENCOUNTER 2023-08-18 20:13 | Outpatient (CLI) | payer MEDICARE, OTHER | END 2023-08-18 23:59 | disposition critical access hospital (66) | LOC: EMS 20:13 | DX: T83.84XA Pain due to genitourinary prosthetic devices, implants and grafts, initial encounter (principal) | CPT/HCPCS: A0425; A0427 ==

== ENCOUNTER 2023-08-18 20:39 | Emergency (ER) | payer MEDICARE, OTHER ==
--- NOTE | 2023-08-18 20:50 | ED Physician Documentation ---
History of Present Illness - Stated complaint Stated Complaint: - History obtained from History obtained from: Patient - Additonal information Additional information: Patient is brought to the emergency department by ambulance for chief complaint of penile pain. The patient states that it started around 1630 today. He was being moved with Christen lift in 3 people assisting and somehow ended up on the floor. He states he really did not get hurt when he went to the floor but does not know if the catheter got "twisted" during that time. He denies the catheter catching on anything. No fevers or chills. No abdominal pain. The patient has not noticed any bloody output. PD PAST MEDICAL HISTORY - Past Medical History Cardiovascular: Hypertension, High cholesterol, Coronary artery disease, Peripheral Vascular Disease, [place] Respiratory: COPD, Shortness of breath Neuro: Peripheral neuropathy Endocrine/Autoimmune: Type 2 diabetes GI: GI bleed : Nocturia, Frequency, Kidney stones Psych: Anxiety, Panic attacks Musculoskeletal: Fibromyalgia, Chronic back pain - Past Surgical History Past Surgical History: Yes Ortho: Amputation Cardiovascular: Coronary stent HEENT: Cataracts - Present Medications Home Medications: Ambulatory Orders Medication Instructions Recorded Confirmed Furosemide 40 mg PO DAILY 12/30/17 02/24/23 Gabapentin [Neurontin] 300 mg PO TID 06/01/18 02/24/23 Insulin Glargine [Lantus Solostar] 25 units SUBQ BID 11/27/22 02/24/23 Acetaminophen [Tylenol] 2 tab PO Q6HR PRN 02/07/23 02/24/23 Bisacodyl Supp [Dulcolax Supp] 1 supp [place] DAILY PRN 02/07/23 02/24/23 Diclofenac Sodium [Arthritis Pain] 1 applic TOP Q8HR PRN 02/07/23 02/24/23 Oxycodone HCl [Roxybond] 5 mg PO Q6HR PRN 02/07/23 02/24/23 diphenhydrAMINE [Benadryl] 1 cap PO BID PRN 02/07/23 02/24/23 Ondansetron Odt [Zofran] 4 mg TL Q6H PRN #10 tablet 02/23/23 02/24/23 Ammonium Lactate 1 appful TOP Q8HR 02/24/23 02/24/23 Aspirin [[place] Aspirin] 81 mg PO DAILY 02/24/23 02/24/23 Atorvastatin Calcium 40 mg PO HS 02/24/23 02/24/23 Benzonatate [Tessalon] 100 mg PO Q8HR PRN 02/24/23 02/24/23 Calamine/Zinc Oxide [Calamine 177 ml TP PRN PRN 02/24/23 02/24/23 Lotion] Insulin Lispro [Humalog] SUBQ ONCE 02/24/23 Loperamide [Imodium] 2 mg PO ONCE 02/24/23 02/24/23 Melatonin 3 mg PO HS 02/24/23 02/24/23 Metoclopramide [Reglan] 5 mg PO TID PRN 02/24/23 02/24/23 Mineral Oil [Mineral Oil Enema] 1 ea RC ONCE PRN 02/24/23 02/24/23 Naloxone HCl Nasal [Narcan Nasal] 4 mg NS PRN PRN 02/24/23 02/24/23 Sennosides [Senna] 2 tab PO PRN PRN 02/24/23 02/24/23 Sodium Chloride [Saline Nasal 1 - 2 spr NS Q6HR PRN 02/24/23 02/24/23 [place]] Spironolactone [Aldactone] 25 mg PO HS 02/24/23 02/24/23 Tamsulosin [Flomax] 0.8 mg PO DAILY 02/24/23 02/24/23 amLODIPine [Norvasc] 5 mg PO DAILY 02/24/23 02/24/23 carvediloL [Coreg] 6.25 mg PO BID 02/24/23 02/24/23 guaiFENesin [Tussin] 100 mg PO Q6HR PRN 02/24/23 02/24/23 polyethylene glycoL 3350 [Miralax] 17 gm PO DAILY PRN 02/24/23 02/24/23 Cefpodoxime Proxetil [Vantin] 200 mg PO Q12H #28 tablet 06/07/23 Ciprofloxacin [Cipro] 250 mg PO Q12H #20 tablet 06/19/23 Ciprofloxacin HCl [Cipro] 500 mg PO BID #14 tablet 08/18/23 - Allergies Allergies/Adverse Reactions: Allergies Allergy/AdvReac Type Severity Reaction Status Date / Time pregabalin [From Lyrica] Allergy Intermediate unknown Verified 08/18/23 20:45 simvastatin [From Zocor] Allergy Intermediate Nausea Verified 08/18/23 20:45 sulfamethoxazole Allergy Intermediate unknown Verified 08/18/23 20:45 [From Septra] trimethoprim [From Septra] Allergy Intermediate unknown Verified 08/18/23 20:45 tetracycline [Tetracycline] Allergy Rash Verified 08/18/23 20:45 - Social History Does the pt smoke?: No Smoking Status: Never smoker Does the pt drink ETOH?: No Does the pt have substance abuse?: No - Immunizations Immunizations are current?: Yes - POLST Patient has POLST: No POLST Status: Full Code PD ED PE NORMAL - Vitals Vital signs reviewed: Yes - General General: Alert and oriented X 3, No acute distress, Well developed/nourished - HEENT HEENT: Atraumatic, PERRL, EOMI, Moist mucous membranes - Neck Neck: Supple, no meningeal sign - Respiratory Respiratory: No respiratory distress - Abdomen Abdomen: Soft, Non distended, Other (Mild diffuse tenderness, no rebound or guarding.) - Male Male : Other (Mahan catheter in place. No evidence of penile or urethral trauma. No blood at the meatus. No bloody output into the catheter. Urine is draining freely and is clear and yellow with mild sedimentation.) - Derm Derm: Normal color, Warm and dry, No rash - Extremities Extremities: No deformity, Other (Right BKA.) - Neuro Neuro: Alert and oriented X 3 - Psych Psych: Normal mood, Normal affect Results - Vitals Vitals: Oxygen O2 Source Room air - Labs Labs: Microbiology 08/18/23 21:37 Urine Culture - Preliminary Urine,Catheterized Laboratory Tests 08/18/23 21:37 Urine Color YELLOW Urine Clarity CLOUDY Urine pH 6.0 Ur Specific [place] 1.020 Urine Protein 100 H Urine Glucose (UA) 100 H Urine Ketones NEGATIVE Urine Occult Blood LARGE H Urine Nitrite NEGATIVE Urine Bilirubin NEGATIVE Urine Urobilinogen 0.2 (NORMAL) Ur Leukocyte Esterase SMALL H Urine RBC TNTC H Urine WBC >25 H Ur Squamous Epith Cells NONE SEEN Urine Bacteria Moderate H Ur Microscopic Review INDICATED Urine Culture Comments INDICATED PD Medical Decision Making - ED course Complexity details: reviewed old records, reviewed results, re-evaluated patient, considered differential, d/w patient ED course: Mahan catheter was changed and urinalysis sent Off of fresh urine from the new catheter. This showed evidence of infection and patient was started on antibiotics. There is no evidence of trauma on exam and I felt the patient was stable for discharge home. We discussed the need for follow-up with urology and the usual indications for return.. Departure - Departure Disposition: 01 Home, Self Care Clinical Impression: Indwelling catheter replaced UTI (urinary tract infection) Qualifiers: Urinary tract infection type: acute cystitis Hematuria presence: without hematuria Qualified Code(s): N30.00 - Acute cystitis without hematuria Condition: Stable Instructions: ED Catheter Care Mahan, ED UTI Cystitis Male Prescriptions: Ciprofloxacin HCl [Cipro] 500 mg PO BID #14 tablet Comments: Your Mahan catheter has been replaced today. There is no blood in the tubing or bag and there is no blood at the opening of your penis or any other evidence of trauma. You have a mild urinary tract infection for which you have been started on antibiotics. This is based on the fresh urine obtained from the new catheter that we put in. It is not clear why you suddenly began to have penile pain but no emergent condition has been found. You were given your first dose of antibiotics here and a prescription for the same is been electronically transmitted to the pharmacy of choice on record for you which is [facility] in [place]. Please get your antibiotics tomorrow and continue taking them as directed, until all pills are gone. Forms: PCP List Discharge Date/Time: 08/18/23 23:00
[2023-08-18 21:47] LABS: BILIRUBIN,URINE NEGATIVE (NEGATIVE); GLUCOSE, URINE (UA) 100 mg/dL (NEGATIVE); KETONES,URINE (UA) NEGATIVE (NEGATIVE); LEUKOCYTE ESTERASE, URINE SMALL (NEGATIVE); NITRITE,URINE NEGATIVE (NEGATIVE); OCCULT BLOOD,URINE LARGE (NEGATIVE); PROTEIN,URINE 100 mg/dL (NEGATIVE); UROBILINOGEN,URINE 0.2 (NORMAL) E.U./dL (NORMAL)
[2023-08-18 21:51] LABS: CLARITY,URINE CLOUDY (CLEAR)
[2023-08-18 21:58] LABS: BACTERIA,URINE Moderate /HPF (None Seen); RBC,URINE TNTC /HPF (0-5); SQUAMOUS EPITHELIAL CELL,UR NONE SEEN (<= Few); WBC,URINE >25 /HPF (0-3)
[2023-08-18] MEDS: CIPROFLOXACIN 250 MG TABLET PO STA (22:35)
[2023-08-18 22:59] VITALS: BP 143/92; O2SAT 96
== END 2023-08-18 23:00 | disposition home or self-care (01) ==
LOC: EDUNIT# → ED 20:39
DX: N30.00 Acute cystitis without hematuria (principal); Z96.0 Presence of urogenital implants
CPT/HCPCS: 51702; 81001; 87077; 87086; 87181; 99283; 99284; A9270; 81003

== ENCOUNTER 2023-08-18 23:27 | Outpatient (CLI) | payer MEDICARE, OTHER | END 2023-08-18 23:28 | disposition home or self-care (01) | LOC: EMS 23:27 | PROVIDERS: ATTEND Emergency Medicine | DX: Z46.6 Encounter for fitting and adjustment of urinary device (principal); N39.0 Urinary tract infection, site not specified; R41.0 Disorientation, unspecified; Z74.01 Bed confinement status | CPT/HCPCS: A0425; A0428 ==

== ENCOUNTER 2023-08-24 15:10 | Outpatient (CLI) | payer MEDICARE, OTHER | END 2023-08-24 23:59 | disposition critical access hospital (66) | LOC: EMS 15:10 | DX: R10.84 Generalized abdominal pain (principal); R19.8 Other specified symptoms and signs involving the digestive system and abdomen | CPT/HCPCS: A0425; A0429 ==

== ENCOUNTER 2023-08-24 20:58 | Outpatient (CLI) | payer MEDICARE, OTHER | END 2023-08-24 23:59 | disposition home or self-care (01) | LOC: EMS 20:58 | PROVIDERS: ATTEND Nurse Practitioner | DX: N39.0 Urinary tract infection, site not specified (principal); Z74.01 Bed confinement status | CPT/HCPCS: A0425; A0428 ==

== ENCOUNTER 2023-09-01 17:32 | Outpatient (CLI) | payer MEDICARE, OTHER | END 2023-09-01 23:59 | disposition critical access hospital (66) | LOC: EMS 17:32 | DX: R10.32 Left lower quadrant pain (principal); R10.12 Left upper quadrant pain; R10.812 Left upper quadrant abdominal tenderness; R10.814 Left lower quadrant abdominal tenderness; R06.2 Wheezing | CPT/HCPCS: A0425; A0427 ==

== ENCOUNTER 2023-09-01 17:58 | Emergency (ER) | payer MEDICARE, OTHER ==
--- NOTE | 2023-09-01 18:12 | ED Physician Documentation ---
PD HPI ABD PAIN - Stated complaint Stated Complaint: LLQ PX - Chief complaint Chief Complaint: Abd Pain - History obtained from History obtained from: Patient, EMS - Additional information Additional information: 78-year-old gentleman presents by ambulance for penile and abdominal pain. This has been happening quite frequently to him, he has an indwelling Mahan catheter and remote history of kidney stones. He finished up a course of Keflex yesterday for his most recent UTI and his catheter was switched out a week ago. He did have a CT scan a week ago demonstrating thickening of the urinary bladder and possible colitis and a chronic left lower lobe consolidation. He was feeling better on the antibiotics but returns today with severe mostly penile pain more than abdominal pain. He received 100 mcg of fentanyl en route which was helpful but now is quite nauseous but declines pain or nausea medicine on my initial evaluation. PD PAST MEDICAL HISTORY - Past Medical History Past Medical History: Yes Cardiovascular: Hypertension, High cholesterol, Coronary artery disease, Peripheral Vascular Disease, [place] Respiratory: COPD, Shortness of breath Neuro: Peripheral neuropathy Endocrine/Autoimmune: Type 2 diabetes GI: GI bleed : Nocturia, Frequency, Kidney stones Psych: Anxiety, Panic attacks Musculoskeletal: Fibromyalgia, Chronic back pain - Past Surgical History Past Surgical History: Yes Ortho: Amputation Cardiovascular: Coronary stent HEENT: Cataracts - Present Medications Home Medications: Ambulatory Orders Medication Instructions Recorded Confirmed Furosemide 40 mg PO DAILY 12/30/17 09/01/23 Gabapentin [Neurontin] 300 mg PO TID 06/01/18 09/01/23 Insulin Glargine [Lantus Solostar] 25 units SUBQ BID 11/27/22 09/01/23 Acetaminophen [Tylenol] 2 tab PO Q6HR PRN 02/07/23 09/01/23 Bisacodyl Supp [Dulcolax Supp] 1 supp [place] DAILY PRN 02/07/23 09/01/23 Diclofenac Sodium [Arthritis Pain] 1 applic TOP Q8HR PRN 02/07/23 09/01/23 Oxycodone HCl [Roxybond] 5 mg PO Q6HR PRN 02/07/23 09/01/23 diphenhydrAMINE [Benadryl] 1 cap PO BID PRN 02/07/23 09/01/23 Ondansetron Odt [Zofran] 4 mg TL Q6H PRN #10 tablet 02/23/23 09/01/23 Ammonium Lactate 1 appful TOP Q8HR 02/24/23 09/01/23 Calamine/Zinc Oxide [Calamine 177 ml TP PRN PRN 02/24/23 09/01/23 Lotion] Loperamide [Imodium] 2 mg PO ONCE 02/24/23 09/01/23 Melatonin 3 mg PO HS 02/24/23 09/01/23 Mineral Oil [Mineral Oil Enema] 1 ea RC ONCE PRN 02/24/23 09/01/23 Naloxone HCl Nasal [Narcan Nasal] 4 mg NS PRN PRN 02/24/23 09/01/23 Sennosides [Senna] 2 tab PO PRN PRN 02/24/23 09/01/23 Sodium Chloride [Saline Nasal 1 - 2 spr NS Q6HR PRN 02/24/23 09/01/23 [place]] Spironolactone [Aldactone] 25 mg PO HS 02/24/23 09/01/23 Tamsulosin [Flomax] 0.8 mg PO DAILY 02/24/23 09/01/23 carvediloL [Coreg] 6.25 mg PO BID 02/24/23 09/01/23 guaiFENesin [Tussin] 100 mg PO Q6HR PRN 02/24/23 09/01/23 polyethylene glycoL 3350 [Miralax] 17 gm PO DAILY PRN 02/24/23 09/01/23 Albuterol 1 inh INH PRN PRN 09/01/23 09/01/23 Fluticasone [Flonase] 1 applic INH DAILY 09/01/23 09/01/23 Loratadine [Claritin] 1 cap PO DAILY 09/01/23 09/01/23 Omeprazole 1 tab PO DAILY 09/01/23 09/01/23 amLODIPine [Norvasc] 1 tab PO DAILY 09/01/23 09/01/23 cephALEXin [Keflex] 1 cap PO BID 09/01/23 09/01/23 cephALEXin [Keflex] 500 mg PO Q6H #28 cap 09/01/23 hydrALAZINE [Apresoline] 1 tab PO PRN PRN 09/01/23 09/01/23 - Allergies Allergies/Adverse Reactions: Allergies Allergy/AdvReac Type Severity Reaction Status Date / Time pregabalin [From Lyrica] Allergy Intermediate unknown Verified 09/01/23 18:38 simvastatin [From Zocor] Allergy Intermediate Nausea Verified 09/01/23 18:38 sulfamethoxazole Allergy Intermediate unknown Verified 09/01/23 18:38 [From Septra] trimethoprim [From Septra] Allergy Intermediate unknown Verified 09/01/23 18:38 levofloxacin Allergy Unknown Verified 09/01/23 18:38 lisinopril Allergy Unknown Verified 09/01/23 18:38 tetracycline [Tetracycline] Allergy Rash Verified 09/01/23 18:38 vancomycin Allergy Unknown Verified 09/01/23 18:38 - Social History Does the pt smoke?: No Smoking Status: Never smoker Does the pt drink ETOH?: No Does the pt have substance abuse?: No - Immunizations Immunizations are current?: Yes - POLST Patient has POLST: No POLST Status: Full Code PD ED PE NORMAL - Vitals Vital signs reviewed: Yes - General General: Alert and oriented X 3, No acute distress - Abdomen Abdomen: Normal bowel sounds, Soft, Non tender - Male Male : Other (Mahan catheter in place draining clearish urine. No obvious inflammation of the penis.) - Neuro Neuro: Alert and oriented X 3 Results - Vitals Vitals: Vital Signs - 24 hr 09/01/23 18:06 Temperature 36.4 C L Heart Rate 79 Respiratory 18 Rate Blood Pressure 136/119 H O2 Saturation 94 Oxygen O2 Source Room air - Labs Labs: Laboratory Tests 09/01/23 09/01/23 09/01/23 18:15 18:36 18:36 WBC 6.4 RBC 2.95 L Hgb 7.5 L Hct 24.8 L MCV 84.1 MCH 25.4 L MCHC 30.2 L RDW 14.4 Plt Count 91 L MPV 9.3 Neut # (Auto) 4.3 Lymph # (Auto) 1.3 L [place] # (Auto) 0.5 Eos # (Auto) 0.2 Baso # (Auto) 0.1 Absolute Nucleated RBC 0.00 Nucleated RBC % 0.0 Sodium 136 Potassium 4.3 Chloride 112 H Carbon Dioxide 18 L Anion Gap 6.0 BUN 38 H Creatinine 1.8 H Estimated GFR (MDRD) 37 L Glucose 200 H Calcium 8.6 Total Bilirubin 0.3 AST 26 ALT 25 Alkaline Phosphatase 147 H Total Protein 7.2 Albumin 2.8 L Globulin 4.4 H Albumin/Globulin Ratio 0.6 L Urine Color YELLOW Urine Clarity [place] Urine pH 6.0 Ur Specific [place] 1.015 Urine Protein 30 H Urine Glucose (UA) NEGATIVE Urine Ketones NEGATIVE Urine Occult Blood MODERATE H Urine Nitrite POSITIVE H Urine Bilirubin NEGATIVE Urine Urobilinogen 0.2 (NORMAL) Ur Leukocyte Esterase SMALL H Urine RBC 6-10 H Urine WBC >25 H Ur Squamous Epith Cells NONE SEEN Urine Bacteria Few Ur Microscopic Review INDICATED Urine Culture Comments INDICATED PD Medical Decision Making - ED course ED course: He presents with mostly penile pain. Previously diagnosed as UTI. Workup in the emergency department demonstrates fairly stable chronic anemia, kidney function is actually improved over prior for the most part, urinalysis with pyuria. This is kind of recurrent problem and has had recent imaging so I do not think that needs h repeating. He probably does need to follow-up with urology. Departure - Departure Disposition: Home, Self Care Clinical Impression: Recurrent UTI Condition: Stable Record reviewed to determine appropriate education?: Yes Instructions: ED UTI Cystitis Male Follow-Up: Anthony Hinojosa MD [Provider Admit Priv/Credential] - Prescriptions: cephALEXin [Keflex] 500 mg PO Q6H #28 cap Comments: Given the recurrent issues, you really should follow-up with a urologist. Call the number on this form for next available appointment. Return for new or worsening symptoms. I sent the prescription electronically to [facility]. Forms: PCP List
[2023-09-01] MEDS: SODIUM CHLORIDE 0.9% 1,000 ML IV STA (18:24)
[2023-09-01 18:25] LABS: BILIRUBIN,URINE NEGATIVE (NEGATIVE); GLUCOSE, URINE (UA) NEGATIVE (NEGATIVE); KETONES,URINE (UA) NEGATIVE (NEGATIVE); LEUKOCYTE ESTERASE, URINE SMALL (NEGATIVE); NITRITE,URINE POSITIVE (NEGATIVE); OCCULT BLOOD,URINE MODERATE (NEGATIVE); PROTEIN,URINE 30 mg/dL (NEGATIVE); UROBILINOGEN,URINE 0.2 (NORMAL) E.U./dL (NORMAL)
[2023-09-01 18:26] LABS: CLARITY,URINE HAZY (CLEAR)
[2023-09-01 18:32] LABS: BACTERIA,URINE Few /HPF (None Seen); SQUAMOUS EPITHELIAL CELL,UR NONE SEEN (<= Few); WBC,URINE >25 /HPF (0-3)
[2023-09-01 18:40] LABS: BASOPHILS # (AUTO) 0.1 10^3/uL (0.0-0.1); BASOPHILS % (AUTO) 0.9 %; EOSINOPHILS # (AUTO) 0.2 10^3/uL (0.0-0.7); EOSINOPHILS % (AUTO) 3.3 %; HCT - HEMATOCRIT 24.8 % (42.0-52.0); HGB - HEMOGLOBIN 7.5 g/dL (14.0-18.0); LYMPHOCYTES # (AUTO) 1.3 10^3/uL (1.5-3.5); LYMPHOCYTES % (AUTO) 20.7 %; MEAN CORPUSCULAR HEMOGLOBIN 25.4 pg (27.0-31.0); MEAN CORPUSCULAR HGB CONC 30.2 g/dL (32.0-36.0); MEAN CORPUSCULAR VOLUME 84.1 fL (80.0-94.0); MEAN PLATELET VOLUME 9.3 fL (7.4-11.4); MONOCYTES # (AUTO) 0.5 10^3/uL (0.0-1.0); MONOCYTES % (AUTO) 7.6 %; NEUTROPHILS # (AUTO) 4.3 10^3/uL (1.5-6.6); PLT - PLATELET COUNT 91 10^3/uL (130-450); RED BLOOD COUNT 2.95 10^6/uL (4.70-6.10); RED CELL DISTRIBUTION WIDTH 14.4 % (12.0-15.0); WHITE BLOOD COUNT 6.4 x10^3/uL (4.8-10.8)
[2023-09-01 18:53] LABS: ALBUMIN 2.8 g/dL (3.2-5.5); ALBUMIN/GLOBULIN RATIO 0.6 (1.0-2.2); BILIRUBIN,TOTAL 0.3 mg/dL (0.2-1.0); CALCIUM 8.6 mg/dL (8.5-10.3); CREATININE 1.8 mg/dL (0.6-1.3); POTASSIUM 4.3 mmol/L (3.5-4.5); TOTAL PROTEIN 7.2 g/dL (6.4-8.9)
[2023-09-01] MEDS: CEPHALEXIN 250 MG Prepack 8 CAP BOTTLE PO STA (19:11)
[2023-09-01] MEDS: HYDROmorphone 1 MG/ML CARPUJECT IVP STA (19:28)
[2023-09-01] MEDS: ONDANSETRON 4 MG/2 ML VIAL IVP STA (19:55)
[2023-09-01 20:32] VITALS: BP 148/77; O2SAT 93
[2023-09-01] MEDS: diphenhydrAMINE 25 MG CAPSULE PO STA (20:33)
== END 2023-09-01 21:05 | disposition home or self-care (01) ==
LOC: EDUNIT# → ED 17:58
DX: N39.0 Urinary tract infection, site not specified (principal); Z96.0 Presence of urogenital implants; I10 Essential (primary) hypertension; E78.00 Pure hypercholesterolemia, unspecified; I25.10 Atherosclerotic heart disease of native coronary artery without angina pectoris; E11.9 Type 2 diabetes mellitus without complications; J44.9 Chronic obstructive pulmonary disease, unspecified; Z95.5 Presence of coronary angioplasty implant and graft; Z79.4 Long term (current) use of insulin; Z79.2 Long term (current) use of antibiotics
CPT/HCPCS: 36415; 80053; 81001; 85025; 87086; 96374; 96375; 99284; A9270; J1170; 81003; 87077; 87181

== ENCOUNTER 2023-09-01 21:05 | Outpatient (CLI) | payer MEDICARE, OTHER | END 2023-09-01 23:59 | disposition home or self-care (01) | LOC: EMS 21:05 | PROVIDERS: ATTEND Emergency Medicine | DX: Z74.01 Bed confinement status (principal) | CPT/HCPCS: A0425; A0428 ==

== ENCOUNTER 2023-09-05 16:58 | Outpatient (CLI) | payer MEDICARE, OTHER | END 2023-09-05 23:59 | disposition critical access hospital (66) | LOC: EMS 16:58 | DX: T83.84XA Pain due to genitourinary prosthetic devices, implants and grafts, initial encounter (principal); R39.89 Other symptoms and signs involving the genitourinary system | CPT/HCPCS: A0425; A0429 ==

== ENCOUNTER 2023-09-05 17:25 | Emergency (ER) | payer MEDICARE, OTHER ==
[2023-09-05 17:37] VITALS: BP 102/66; O2SAT 98
--- NOTE | 2023-09-05 17:48 | ED Physician Documentation ---
History of Present Illness - Stated complaint Stated Complaint: CATH PAIN - Chief complaint Chief Complaint: Abd Pain - History obtained from History obtained from: Patient, EMS - Additonal information Additional information: The pt is brought to the ED for CC of recurrence of chronic penile pain. The pt has a chronic indwelling Mahan catheter, and has ongoing pain associated with this. He was seen by Dr. Hinojosa, and suprapubic cath was recommended, but Dr. Hinojosa referred the pt to the for this, because of potential for complications. The pt denies fevers or chills. He recently had a cult ure/sensitivity positive for an unusual strain of pseudomonas that was resistant to most antibiotics against which it was tested; however, since the pt did not have any UTI sx, and is chronically catheterized, it was felt to represent colonization. PD PAST MEDICAL HISTORY - Past Medical History Past Medical History: Yes Cardiovascular: Hypertension, High cholesterol, Coronary artery disease, Peripheral Vascular Disease, [place] Respiratory: COPD, Shortness of breath Neuro: Peripheral neuropathy Endocrine/Autoimmune: Type 2 diabetes GI: GI bleed : Nocturia, Frequency, Kidney stones Psych: Anxiety, Panic attacks Musculoskeletal: Fibromyalgia, Chronic back pain - Past Surgical History Past Surgical History: Yes Ortho: Amputation Cardiovascular: Coronary stent HEENT: Cataracts - Present Medications Home Medications: Ambulatory Orders Medication Instructions Recorded Confirmed Furosemide 40 mg PO DAILY 12/30/17 09/01/23 Gabapentin [Neurontin] 300 mg PO TID 06/01/18 09/01/23 Insulin Glargine [Lantus Solostar] 25 units SUBQ BID 11/27/22 09/01/23 Acetaminophen [Tylenol] 2 tab PO Q6HR PRN 02/07/23 09/01/23 Bisacodyl Supp [Dulcolax Supp] 1 supp IN DAILY PRN 02/07/23 09/01/23 Diclofenac Sodium [Arthritis Pain] 1 applic TOP Q8HR PRN 02/07/23 09/01/23 Oxycodone HCl [Roxybond] 5 mg PO Q6HR PRN 02/07/23 09/01/23 diphenhydrAMINE [Benadryl] 1 cap PO BID PRN 02/07/23 09/01/23 Ondansetron Odt [Zofran] 4 mg TL Q6H PRN #10 tablet 02/23/23 09/01/23 Ammonium Lactate 1 appful TOP Q8HR 02/24/23 09/01/23 Calamine/Zinc Oxide [Calamine 177 ml TP PRN PRN 02/24/23 09/01/23 Lotion] Loperamide [Imodium] 2 mg PO ONCE 02/24/23 09/01/23 Melatonin 3 mg PO HS 02/24/23 09/01/23 Mineral Oil [Mineral Oil Enema] 1 ea RC ONCE PRN 02/24/23 09/01/23 Naloxone HCl Nasal [Narcan Nasal] 4 mg NS PRN PRN 02/24/23 09/01/23 Sennosides [Senna] 2 tab PO PRN PRN 02/24/23 09/01/23 Sodium Chloride [Saline Nasal 1 - 2 spr NS Q6HR PRN 02/24/23 09/01/23 [place]] Spironolactone [Aldactone] 25 mg PO HS 02/24/23 09/01/23 Tamsulosin [Flomax] 0.8 mg PO DAILY 02/24/23 09/01/23 carvediloL [Coreg] 6.25 mg PO BID 02/24/23 09/01/23 guaiFENesin [Tussin] 100 mg PO Q6HR PRN 02/24/23 09/01/23 polyethylene glycoL 3350 [Miralax] 17 gm PO DAILY PRN 02/24/23 09/01/23 Albuterol 1 inh INH PRN PRN 09/01/23 09/01/23 Fluticasone [Flonase] 1 applic INH DAILY 09/01/23 09/01/23 Loratadine [Claritin] 1 cap PO DAILY 09/01/23 09/01/23 Omeprazole 1 tab PO DAILY 09/01/23 09/01/23 amLODIPine [Norvasc] 1 tab PO DAILY 09/01/23 09/01/23 cephALEXin [Keflex] 1 cap PO BID 09/01/23 09/01/23 cephALEXin [Keflex] 500 mg PO Q6H #28 cap 09/01/23 hydrALAZINE [Apresoline] 1 tab PO PRN PRN 09/01/23 09/01/23 - Allergies Allergies/Adverse Reactions: Allergies Allergy/AdvReac Type Severity Reaction Status Date / Time pregabalin [From Lyrica] Allergy Intermediate unknown Verified 09/05/23 17:30 simvastatin [From Zocor] Allergy Intermediate Nausea Verified 09/05/23 17:30 sulfamethoxazole Allergy Intermediate unknown Verified 09/05/23 17:30 [From Septra] trimethoprim [From Septra] Allergy Intermediate unknown Verified 09/05/23 17:30 levofloxacin Allergy Unknown Verified 09/05/23 17:30 lisinopril Allergy Unknown Verified 09/05/23 17:30 tetracycline [Tetracycline] Allergy Rash Verified 09/05/23 17:30 vancomycin Allergy Unknown Verified 09/05/23 17:30 - Social History Does the pt smoke?: No Smoking Status: Never smoker Does the pt drink ETOH?: No Does the pt have substance abuse?: No - Immunizations Immunizations are current?: Yes - POLST Patient has POLST: No POLST Status: Full Code PD ED PE NORMAL - Vitals Vital signs reviewed: Yes - General General: Well developed/nourished, Other (the pt is anxious and very vocal. No distress otherwise.) - HEENT HEENT: Atraumatic, EOMI, Moist mucous membranes - Neck Neck: Supple, no meningeal sign - Cardiac Cardiac: RRR, No murmur - Respiratory Respiratory: No respiratory distress, Clear bilaterally - Abdomen Abdomen: Soft, Non distended, Other (moderate suprapubic tenderness, no rebound or guarding) - Male Male : Dike Supervisor present, Other (No evidence of trauma) - Derm Derm: Normal color, Warm and dry, No rash - Extremities Extremities: No deformity - Neuro Neuro: Other (Grossly intact) - Psych Psych: Normal mood, Normal affect Results - Vitals Vitals: Oxygen O2 Source Room air PD Medical Decision Making - ED course Complexity details: reviewed old records, considered differential, d/w patient ED course: The pt's catheter appeared to be draining well, with clear, light yellow urine. The nursing staff flushed it just to be sure, and it flushed easily. The pt had just had his catheter changed within the past week or two, and did not need a new one. He was requesting that I have a "doc-to-doc" conversation with the urologist to whom he has been referred, so that his care can be expedited. I discussed with him that this is not going to happen from the ED, and that it is up to Dr. Hinojosa to have a hand-off conversation as the specialist who has been handling the pt's care, and who has done the referral. The pt is stable for d/c home. We have discussed the usual indications for return. Departure - Departure Disposition: 01 Home, Self Care Clinical Impression: Penile pain, chronic, History of urinary retention Condition: Stable Instructions: ED Catheter Care Mahan Comments: Your catheter is draining fine. Unfortunately, we have no ability to transfer you anywhere else for this problem, as it is nonemergent. The last time you were in, Dr. Huertas did contact Dr. Hinojosa to try to get him to expedite your establishment of care with a urologist at a facility where they can accommodate your medical problems while under anesthesia. Dr. Hinojosa has said he will try to help with this. Other than this, we are unable to expedite this process from the emergency department, unfortunately. We have checked your catheter and treated you with pain medication here. There is no role for any further antibiotics at this time, as your urinalysis will always be positive, but you have no symptoms of acute infection. Forms: PCP List Discharge Date/Time: 09/05/23 18:06
[2023-09-05] MEDS: HYDROmorphone 1 MG/ML CARPUJECT IM STA (17:51)
== END 2023-09-05 18:06 | disposition home or self-care (01) ==
LOC: EDUNIT# → ED 17:25
DX: N48.89 Other specified disorders of penis (principal); G89.29 Other chronic pain; I10 Essential (primary) hypertension; E78.00 Pure hypercholesterolemia, unspecified; J44.9 Chronic obstructive pulmonary disease, unspecified; E11.42 Type 2 diabetes mellitus with diabetic polyneuropathy; Z79.899 Other long term (current) drug therapy; Z79.4 Long term (current) use of insulin
CPT/HCPCS: 96372; 99283; J1170

== ENCOUNTER 2023-09-05 18:05 | Outpatient (CLI) | payer MEDICARE, OTHER | END 2023-09-05 23:59 | disposition home or self-care (01) | LOC: EMS 18:05 | PROVIDERS: ATTEND Emergency Medicine | DX: Z46.6 Encounter for fitting and adjustment of urinary device (principal); Z74.01 Bed confinement status | CPT/HCPCS: A0425; A0428 ==

== ENCOUNTER 2023-09-15 23:34 | Outpatient (CLI) | payer MEDICARE, OTHER | END 2023-09-15 23:59 | disposition critical access hospital (66) | LOC: EMS 23:34 | DX: R10.84 Generalized abdominal pain (principal); R11.2 Nausea with vomiting, unspecified; I10 Essential (primary) hypertension | CPT/HCPCS: A0425; A0427 ==

== ENCOUNTER 2023-09-15 23:59 | Emergency (ER) | payer MEDICARE, OTHER ==
[2023-09-16 00:53] LABS: BASOPHILS % (AUTO) 0.4 %; EOSINOPHILS # (AUTO) 0.1 10^3/uL (0.0-0.7); EOSINOPHILS % (AUTO) 2.2 %; HCT - HEMATOCRIT 26.2 % (42.0-52.0); HGB - HEMOGLOBIN 7.6 g/dL (14.0-18.0); LYMPHOCYTES # (AUTO) 0.6 10^3/uL (1.5-3.5); LYMPHOCYTES % (AUTO) 11.2 %; MEAN CORPUSCULAR HEMOGLOBIN 24.8 pg (27.0-31.0); MEAN CORPUSCULAR VOLUME 85.3 fL (80.0-94.0); MEAN PLATELET VOLUME 8.9 fL (7.4-11.4); MONOCYTES # (AUTO) 0.5 10^3/uL (0.0-1.0); MONOCYTES % (AUTO) 9.1 %; NEUTROPHILS # (AUTO) 4.1 10^3/uL (1.5-6.6); NEUTROPHILS % (AUTO) 76.7 %; PLT - PLATELET COUNT 85 10^3/uL (130-450); RED BLOOD COUNT 3.07 10^6/uL (4.70-6.10); RED CELL DISTRIBUTION WIDTH 14.2 % (12.0-15.0); WHITE BLOOD COUNT 5.4 x10^3/uL (4.8-10.8)
[2023-09-16 01:00] LABS: INR 1.1 (0.8-1.2); PT - PROTHROMBIN TIME 11.9 secs (9.9-12.6)
[2023-09-16 01:26] LABS: ALBUMIN 2.9 g/dL (3.2-5.5); ALBUMIN/GLOBULIN RATIO 0.7 (1.0-2.2); BILIRUBIN,TOTAL 0.4 mg/dL (0.2-1.0); CALCIUM 8.2 mg/dL (8.5-10.3); CREATININE 1.9 mg/dL (0.6-1.3); POTASSIUM 4.3 mmol/L (3.5-4.5); TOTAL PROTEIN 7.2 g/dL (6.4-8.9)
[2023-09-16 01:45] LABS: BILIRUBIN,URINE NEGATIVE (NEGATIVE); GLUCOSE, URINE (UA) NEGATIVE (NEGATIVE); KETONES,URINE (UA) TRACE mg/dL (NEGATIVE); LEUKOCYTE ESTERASE, URINE SMALL (NEGATIVE); NITRITE,URINE NEGATIVE (NEGATIVE); OCCULT BLOOD,URINE MODERATE (NEGATIVE); PROTEIN,URINE 100 mg/dL (NEGATIVE); UROBILINOGEN,URINE 0.2 (NORMAL) E.U./dL (NORMAL)
[2023-09-16 01:46] LABS: CLARITY,URINE CLEAR (CLEAR)
[2023-09-16 02:10] LABS: BACTERIA,URINE Rare /HPF (None Seen); RBC,URINE 0-5 /HPF (0-5); SQUAMOUS EPITHELIAL CELL,UR RARE Squamous (<= Few); WBC,URINE >25 /HPF (0-3)
[2023-09-16] MEDS: ONDANSETRON 4 MG/2 ML VIAL IVP STA (02:19)
[2023-09-16] MEDS: HYDROmorphone 1 MG/ML CARPUJECT IVP STA ×2 (02:21→08:40)
--- NOTE | 2023-09-16 04:22 | ED Physician Documentation ---
History of Present Illness - Stated complaint Stated Complaint: ABD PX - Chief complaint Chief Complaint: Abd Pain - Additonal information Additional information: 78-year-old male presents with abdominal pain with associated nausea vomiting. Began earlier this evening. Denies diarrhea, fevers, chills. Past medical significant for morbid obesity, bedbound/wheelchair-bound at baseline.Past medical significant for chronic indwelling Mahan catheter. Review of Systems Constitutional: denies: Fever Eyes: denies: Loss of vision Ears: denies: Loss of hearing Nose: denies: Rhinorrhea / runny nose Throat: denies: Dental pain / toothache Cardiac: denies: Chest pain / pressure Respiratory: denies: Dyspnea GI: reports: Abdominal Pain, Nausea, Vomiting : denies: Dysuria PD PAST MEDICAL HISTORY - Past Medical History Past Medical History: Yes Cardiovascular: Hypertension, High cholesterol, Coronary artery disease, Peripheral Vascular Disease, [place] Respiratory: COPD, Shortness of breath Neuro: Peripheral neuropathy Endocrine/Autoimmune: Type 2 diabetes GI: GI bleed : Nocturia, Frequency, Kidney stones Psych: Anxiety, Panic attacks Musculoskeletal: Fibromyalgia, Chronic back pain - Past Surgical History Past Surgical History: Yes Ortho: Amputation Cardiovascular: Coronary stent HEENT: Cataracts - Present Medications Home Medications: Ambulatory Orders Medication Instructions Recorded Confirmed Furosemide 40 mg PO DAILY 12/30/17 09/16/23 Gabapentin [Neurontin] 300 mg PO TID 06/01/18 09/16/23 Insulin Glargine [Lantus Solostar] 30 units SUBQ BID 11/27/22 09/16/23 Diclofenac Sodium [Arthritis Pain] 1 applic TOP Q8HR PRN 02/07/23 09/16/23 Ondansetron Odt [Zofran] 4 mg TL Q6H PRN #10 tablet 02/23/23 09/16/23 Ammonium Lactate 1 appful TOP Q8HR 02/24/23 09/16/23 Calamine/Zinc Oxide [Calamine 177 ml TP PRN PRN 02/24/23 09/16/23 Lotion] Melatonin 3 mg PO HS 02/24/23 09/16/23 Sennosides [Senna] 2 tab PO PRN PRN 02/24/23 09/16/23 Sodium Chloride [Saline Nasal 1 - 2 spr NS Q6HR PRN 02/24/23 09/16/23 [place]] Spironolactone [Aldactone] 25 mg PO HS 02/24/23 09/16/23 Tamsulosin [Flomax] 0.8 mg PO DAILY 02/24/23 09/16/23 carvediloL [Coreg] 6.25 mg PO BID 02/24/23 09/16/23 Fluticasone [Flonase] 1 applic INH DAILY 09/01/23 09/16/23 Loratadine [Claritin] 1 cap PO DAILY 09/01/23 09/16/23 Omeprazole 1 tab PO DAILY 09/01/23 09/16/23 amLODIPine [Norvasc] 1 tab PO DAILY 09/01/23 09/16/23 hydrALAZINE [Apresoline] 1 tab PO BID PRN 09/01/23 09/16/23 Acetaminophen [Tylenol] 500 mg PO Q4HR PRN 09/16/23 09/16/23 Albuterol Sulfate [Proair 90 mcg IH Q4HR PRN 09/16/23 09/16/23 Respiclick] - Allergies Allergies/Adverse Reactions: Allergies Allergy/AdvReac Type Severity Reaction Status Date / Time pregabalin [From Lyrica] Allergy Intermediate unknown Verified 09/16/23 00:06 simvastatin [From Zocor] Allergy Intermediate Nausea Verified 09/16/23 00:06 sulfamethoxazole Allergy Intermediate unknown Verified 09/16/23 00:06 [From Septra] trimethoprim [From Septra] Allergy Intermediate unknown Verified 09/16/23 00:06 levofloxacin Allergy Unknown Verified 09/16/23 00:06 lisinopril Allergy Unknown Verified 09/16/23 00:06 tetracycline [Tetracycline] Allergy Rash Verified 09/16/23 00:06 vancomycin Allergy Unknown Verified 09/16/23 00:06 - Social History Does the pt smoke?: No Smoking Status: Never smoker Does the pt drink ETOH?: No Does the pt have substance abuse?: No - Immunizations Immunizations are current?: Yes - POLST Patient has POLST: No POLST Status: Full Code PD ED PE NORMAL - Vitals Vital signs reviewed: Yes - General General: Alert and oriented X 3, No acute distress - HEENT HEENT: Atraumatic - Neck Neck: Supple, no meningeal sign - Cardiac Cardiac: RRR - Respiratory Respiratory: No respiratory distress - Abdomen Abdomen: Normal bowel sounds. No: Non tender (Generalized abdominal tenderness) - Male Male : Deferred - Rectal Rectal: Deferred Results - Vitals Vitals: Oxygen O2 Source Room air - EKG (time done) 0130 EKG releavant findings:: EKG personally interpreted by author of this note. Relevant findings are: Sinus rhythm with rate 75 bpm. Normal axis. AK interval prolonged. Normal QRS and QTc intervals. No ST segment elevations or T wave inversions. - Labs Labs: Microbiology 09/16/23 01:25 Urine Culture - Final Urine,Clean Catch Pseudomonas Aeruginosa Laboratory Tests 09/16/23 09/16/23 09/16/23 00:49 00:49 00:49 WBC 5.4 RBC 3.07 L Hgb 7.6 L Hct 26.2 L MCV 85.3 MCH 24.8 L MCHC 29.0 L RDW 14.2 Plt Count 85 L MPV 8.9 Neut # (Auto) 4.1 Lymph # (Auto) 0.6 L [place] # (Auto) 0.5 Eos # (Auto) 0.1 Baso # (Auto) 0.0 Absolute Nucleated RBC 0.00 Nucleated RBC % 0.0 PT 11.9 INR 1.1 Sodium 139 Potassium 4.3 Chloride 112 H Carbon Dioxide 19 L Anion Gap 8.0 BUN 40 H Creatinine 1.9 H Estimated GFR (MDRD) 34 L Glucose 152 H Lactic Acid Calcium 8.2 L Total Bilirubin 0.4 AST 18 ALT 15 Alkaline Phosphatase 130 H Troponin I High Sens Total Protein 7.2 Albumin 2.9 L Globulin 4.3 H Albumin/Globulin Ratio 0.7 L Lipase 11 Urine Color Urine Clarity Urine pH Ur Specific [place] Urine Protein Urine Glucose (UA) Urine Ketones Urine Occult Blood Urine Nitrite Urine Bilirubin Urine Urobilinogen Ur Leukocyte Esterase Urine RBC Urine WBC Ur Squamous Epith Cells Urine Bacteria Ur Microscopic Review Urine Culture Comments 09/16/23 09/16/23 09/16/23 00:49 00:49 01:25 WBC RBC Hgb Hct MCV MCH MCHC RDW Plt Count MPV Neut # (Auto) Lymph # (Auto) [place] # (Auto) Eos # (Auto) Baso # (Auto) Absolute Nucleated RBC Nucleated RBC % PT INR Sodium Potassium Chloride Carbon Dioxide Anion Gap BUN Creatinine Estimated GFR (MDRD) Glucose Lactic Acid 1.7 Calcium Total Bilirubin AST ALT Alkaline Phosphatase Troponin I High Sens 8.3 Total Protein Albumin Globulin Albumin/Globulin Ratio Lipase Urine Color YELLOW Urine Clarity CLEAR Urine pH 6.0 Ur Specific [place] 1.020 Urine Protein 100 H Urine Glucose (UA) NEGATIVE Urine Ketones TRACE Urine Occult Blood MODERATE H Urine Nitrite NEGATIVE Urine Bilirubin NEGATIVE Urine Urobilinogen 0.2 (NORMAL) Ur Leukocyte Esterase SMALL H Urine RBC 0-5 Urine WBC >25 H Ur Squamous Epith Cells RARE Squamous Urine Bacteria Rare Ur Microscopic Review INDICATED Urine Culture Comments INDICATED PD Medical Decision Making - ED course Complexity details: reviewed results, re-evaluated patient, considered differential, d/w patient ED course: 78-year-old male presents with reported episode abdominal pain with nausea vomiting. Afebrile, he medically stable. Labs all generally reassuring. Urine analysis with clear indications infection. Longstanding history indwelling Mahan catheter with colonization and multidrug-resistant UTIs in the past. CT of the abdomen pelvis does not show acute surgical emergency. Will be signing out to the oncoming physician, please see their documentation for further detail. Departure - Departure Disposition: 01 Home, Self Care Clinical Impression: Chronic UTI, Chronic anemia Abdominal pain Qualifiers: Abdominal location: unspecified location Qualified Code(s): R10.9 - Unspecified abdominal pain Condition: Good Instructions: ED Abdominal Pain Unkn Cause Male Follow-Up: your,doctor this week [Other] Comments: I spoke with Dr. Hinojosa, urology, we reviewed your CT scan findings and your uri nalysis. You do not have signs of an acute infection and do not require antibiotic treatment at this time for that. Your symptoms last night are not felt to be related to the urinary tract. Please follow-up with your doctor for further care. You also have continued anemia. Your doctor may want to consider an outpatient blood transfusion or further workup for your continued anemia. Forms: PCP List Discharge Date/Time: 09/16/23 09:58
[2023-09-16] MEDS: diphenhydrAMINE 25 MG CAPSULE PO STA ×2 (04:43→09:51)
[2023-09-16] MEDS: cefTRIAXone 1 GM VIAL IVP STA (04:44)
--- NOTE | 2023-09-16 07:57 | ED Physician Documentation ---
ED Addendum - Addendum Addendum: 09/16/23 07:58 Patient was signed out to me by Dr. Ospina. Please see his note for full H&P on this patient. Initially the signout was to consider antibiotics and admission. I reviewed the patient's CT scan findings and his prior CT scan findings, they all appear very similar. He is not having a fever. He does not have any suprapubic pain. Does not have an elevated white blood cell count. No indication of acute UTI. His pain was following a bowel movement that has since resolved. Discussed the case with Dr. Hinojosa, urology, he agrees with not prescribing antibiotics at this time. No indication for admission. Has chronic anemia, asymptomatic. No change from his hemoglobin 2 weeks ago. No indication for emergent blood transfusion. Patient counseled regarding signs and symptoms for which I believe and urgent re-evaluation would be necessary. Patient with good understanding of and agreement to plan and is comfortable going home at this time This document was made in part using voice recognition software. While efforts are made to proofread this document, sound alike and grammatical errors may occur. Departure - Departure Disposition: 01 Home, Self Care Clinical Impression: Chronic UTI, Chronic anemia Abdominal pain Qualifiers: Abdominal location: unspecified location Qualified Code(s): R10.9 - Unspecified abdominal pain Condition: Good Instructions: ED Abdominal Pain Unkn Cause Male Follow-Up: your,doctor this week [Other] Comments: I spoke with Dr. Hinojosa, urology, we reviewed your CT scan findings and your urinalysis. You do not have signs of an acute infection and do not require antibiotic treatment at this time for that. Your symptoms last night are not felt to be related to the urinary tract. Please follow-up with your doctor for further care. You also have continued anemia. Your doctor may want to consider an outpatient blood transfusion or further workup for your continued anemia. Forms: PCP List
--- NOTE | 2023-09-16 08:19 | CT Report ---
PROCEDURE: Abdomen/Pelvis WO INDICATIONS: abd pain TECHNIQUE: A CT scan of the abdomen and pelvis was performed without the use of intravenous contrast. Images we re recorded and evaluated at appropriate window settings. Reformats: coronal and sagittal. For radiat ion dose reduction, the following was used: automated exposure control, adjustment of mA and/or kV ac cording to patient size. COMPARISON: 08/23/2023, 06/07/2023 and 11/26/2022. FINDINGS: Image quality: Diagnostic. Lower chest: Moderate sized airspace opacity in posterior medial aspect of right lower lobe is seen e xtending to right infrahilar region. Left lung base is clear. Heart size is enlarged with prosthetic aortic valve seen. Moderate atherosclerotic calcifications are noted. No pericardial effusion. Liver: Nodular liver contour is seen. No gross solid-appearing hepatic lesion. Gallbladder: Multiple calcified stones are seen lining the dependent portion of gallbladder lumen ext ending to neck of gallbladder. There is suggestion of gallbladder wall thickening and trace amount of pericholecystic fluid.. Biliary tree: No intrahepatic or extrahepatic dilation, accounting for age. Spleen: There is splenomegaly. Pancreas: No pancreatic ductal dilation. Hypodensity measures 2.1 x 1.4 cm in size in pancreatic head region series 2 image 83. No peripancreatic inflammatory changes. Adrenals: No adrenal nodule. Kidneys and ureters: Multiple nonobstructing stones are seen in right kidney unchanged from prior lucy dy. Multiple simple appearing left renal cysts are also unchanged. No hydronephrosis. Stomach, bowel and peritoneum:. Trace amount of ascites fluid is noted adjacent to the liver in right upper quadrant. There is no evidence of bowel obstruction. Mild to moderate fecal stasis in the colo n is seen. Appendix is visualized and is normal in size. No abscess collection. No peritoneal free ai r. Lymph nodes: No central or retroperitoneal adenopathy. Vessels: No infrarenal aortic aneurysm. Reproductive organs: Enlarged prostate gland with mass effect on floor of urinary bladder is seen.. Bladder: Mahan catheter is noted within the decompressed urinary bladder with suggestion of bladder w all thickening. Mild pericystic inflammatory changes are noted. Pelvic lymph nodes: Prominent right external iliac lymph node measures 1.5 cm in short axis diameter is seen series 2 image 157.. Bones: No aggressive osseous abnormality. Other: Right greater than left bilateral inguinal hernia is seen containing fat only. IMPRESSION: 1. Cirrhotic appearing liver with trace amount of ascites fluid. No discrete hepatic lesion is seen. 2. Cholelithiasis with gallbladder wall thickening or pericholecystic fluid concerning for cholecysti tis suggest clinical correlation. No biliary ductal dilatation. 3. Questionable hypodense area involving pancreatic head/uncinate process measures 2.1 x 1.4 cm in si ze. This can be further worked up with MRI of abdomen pancreatic protocol. 4. No bowel obstruction or abnormal bowel wall thickening. No free fluid of free air. Normal appendix . 5. Moderate sized airspace opacity in right lower lobe extending to right infrahilar region. 6. Chronic appearing urinary bladder wall thickening contains a Mahan catheter. Enlarged right plate painter apprentice al iliac lymph node likely reactive in nature. Enlarged prostate gland with mass effect on floor of b ladder. No significant discrepancies from preliminary reading. Reviewed by: Tayo Wagoner MD on 09/16/2023 8:18 AM PDT Approved by: Tayo Wagoner MD on 09/16/2023 8:18 AM PDT Station ID: [id number]
[2023-09-16 09:59] VITALS: BP 115/74; O2SAT 98
== END 2023-09-16 09:58 | disposition home or self-care (01) ==
LOC: EDUNIT# → ED 23:59
DX: N39.0 Urinary tract infection, site not specified (principal); D64.9 Anemia, unspecified; R10.9 Unspecified abdominal pain
CPT/HCPCS: 36415; 74176; 80053; 81001; 83605; 83690; 84484; 85025; 85610; 87077; 87086; 87181; 93005; 96374; 96375; 96376; 99284; 99285; A9270; J1170; J1580; 81003

== ENCOUNTER 2023-09-16 09:58 | Outpatient (CLI) | payer MEDICARE, OTHER | END 2023-09-16 09:59 | disposition home or self-care (01) | LOC: EMS 09:58 | PROVIDERS: ATTEND Emergency Medicine | DX: E66.01 Morbid (severe) obesity due to excess calories (principal); G62.9 Polyneuropathy, unspecified; Z74.01 Bed confinement status | CPT/HCPCS: A0425; A0428 ==

== ENCOUNTER 2023-11-26 21:53 | Outpatient (CLI) | payer MEDICARE, OTHER | END 2023-11-26 21:54 | disposition EMS.NT | LOC: EMS 21:53 | DX: E11.65 Type 2 diabetes mellitus with hyperglycemia (principal); Z79.4 Long term (current) use of insulin ==

== ENCOUNTER 2023-12-01 17:41 | Outpatient (CLI) | payer MEDICARE, OTHER | END 2023-12-01 17:42 | disposition critical access hospital (66) | LOC: EMS 17:41 | DX: R11.2 Nausea with vomiting, unspecified (principal); T83.84XA Pain due to genitourinary prosthetic devices, implants and grafts, initial encounter; L98.9 Disorder of the skin and subcutaneous tissue, unspecified | CPT/HCPCS: A0425; A0429 ==

== ENCOUNTER 2023-12-01 18:09 | Emergency (ER) | payer MEDICARE, OTHER ==
--- NOTE | 2023-12-01 18:23 | ED Physician Documentation ---
History of Present Illness - Stated complaint Stated Complaint: NAUSEA/VOMITING - Chief complaint Chief Complaint: General - History obtained from History obtained from: Patient, EMS - Additonal information Additional information: 78-year-old gentleman with complex medical history presents mostly for the evaluation of vomiting. He says he has been sick to his stomach for about a week since switching to ensure because he is trying to lose weight. Today he started vomiting several times. It was nonbloody. There is no associated abdominal pain. He was incontinent of normal stool while he was vomiting. No diarrhea. No fevers. He has multiple ancillary complaints which include catheter pain, note made that he really should have had a suprapubic catheter by now but lacks resources to get to a tertiary facility for same and is too high risk for our anesthesiologist. He also has a chronic cough. Ongoing left shoulder pain for the last year. And reportedly has bedsores. He declines pain medication or nausea medicine on initial evaluation. PD PAST MEDICAL HISTORY - Past Medical History Cardiovascular: Hypertension, High cholesterol, Coronary artery disease, Peripheral Vascular Disease, [place] Respiratory: COPD, Shortness of breath Neuro: Peripheral neuropathy Endocrine/Autoimmune: Type 2 diabetes GI: GI bleed : Nocturia, Frequency, Kidney stones Psych: Anxiety, Panic attacks Musculoskeletal: Fibromyalgia, Chronic back pain - Past Surgical History Past Surgical History: Yes Ortho: Amputation Cardiovascular: Coronary stent HEENT: Cataracts - Present Medications Home Medications: Ambulatory Orders Medication Instructions Recorded Confirmed Furosemide 40 mg PO DAILY 12/30/17 09/16/23 Gabapentin [Neurontin] 300 mg PO TID 06/01/18 09/16/23 Insulin Glargine [Lantus Solostar] 30 units SUBQ BID 11/27/22 09/16/23 Diclofenac Sodium [Arthritis Pain] 1 applic TOP Q8HR PRN 02/07/23 09/16/23 Ondansetron Odt [Zofran] 4 mg TL Q6H PRN #10 tablet 02/23/23 09/16/23 Ammonium Lactate 1 appful TOP Q8HR 02/24/23 09/16/23 Calamine/Zinc Oxide [Calamine 177 ml TP PRN PRN 02/24/23 09/16/23 Lotion] Melatonin 3 mg PO HS 02/24/23 09/16/23 Sennosides [Senna] 2 tab PO PRN PRN 02/24/23 09/16/23 Sodium Chloride [Saline Nasal 1 - 2 spr NS Q6HR PRN 02/24/23 09/16/23 [place]] Spironolactone [Aldactone] 25 mg PO HS 02/24/23 09/16/23 Tamsulosin [Flomax] 0.8 mg PO DAILY 02/24/23 09/16/23 carvediloL [Coreg] 6.25 mg PO BID 02/24/23 09/16/23 Fluticasone [Flonase] 1 applic INH DAILY 09/01/23 09/16/23 Loratadine [Claritin] 1 cap PO DAILY 09/01/23 09/16/23 Omeprazole 1 tab PO DAILY 09/01/23 09/16/23 amLODIPine [Norvasc] 1 tab PO DAILY 09/01/23 09/16/23 hydrALAZINE [Apresoline] 1 tab PO BID PRN 09/01/23 09/16/23 Acetaminophen [Tylenol] 500 mg PO Q4HR PRN 09/16/23 09/16/23 Albuterol Sulfate [Proair 90 mcg IH Q4HR PRN 09/16/23 09/16/23 Respiclick] - Allergies Allergies/Adverse Reactions: Allergies Allergy/AdvReac Type Severity Reaction Status Date / Time pregabalin [From Lyrica] Allergy Intermediate unknown Verified 12/01/23 18:17 simvastatin [From Zocor] Allergy Intermediate Nausea Verified 12/01/23 18:17 sulfamethoxazole Allergy Intermediate unknown Verified 12/01/23 18:17 [From Septra] trimethoprim [From Septra] Allergy Intermediate unknown Verified 12/01/23 18:17 levofloxacin Allergy Unknown Verified 12/01/23 18:17 lisinopril Allergy Unknown Verified 12/01/23 18:17 tetracycline [Tetracycline] Allergy Rash Verified 12/01/23 18:17 vancomycin Allergy Unknown Verified 12/01/23 18:17 - Social History Does the pt smoke?: No Smoking Status: Never smoker Does the pt drink ETOH?: No Does the pt have substance abuse?: No - Immunizations Immunizations are current?: Yes - POLST Patient has POLST: No POLST Status: Full Code PD ED PE NORMAL - Vitals Vital signs reviewed: Yes - General General: Alert and oriented X 3, No acute distress - HEENT HEENT: PERRL, EOMI - Neck Neck: Supple, no meningeal sign, No bony TTP - Cardiac Cardiac: RRR, No murmur - Respiratory Respiratory: No respiratory distress (Mildly rhonchorous throughout without focal findings, nonlabored) - Abdomen Abdomen: Non tender - Back Back: No CVA TTP, No spinal TTP - Derm Derm: Normal color, Warm and dry, Other (Large grade 2 pressure ulcer of both buttocks and sacrum) - Extremities Extremities: Other (Decreased range of motion of the left shoulder with mild tenderness. No warmth or redness.) - Neuro Neuro: Alert and oriented X 3 Results - Vitals Vitals: Vital Signs - 24 hr 12/01/23 12/01/23 12/01/23 18:18 20:28 20:34 Temperature 36.9 C 36.7 C 36.8 C Heart Rate 77 Heart Rate [ 71 72 Monitoring electrodes] Respiratory 18 16 18 Rate Blood Pressure 132/67 H Blood Pressure 152/78 H 170/77 H [Right] O2 Saturation 98 96 93 12/01/23 12/01/23 12/01/23 20:48 21:05 21:34 Temperature 36.8 C 36.7 C 36.6 C Heart Rate Heart Rate [ 73 72 73 Monitoring electrodes] Respiratory 18 18 18 Rate Blood Pressure Blood Pressure 165/77 H 156/78 H 159/86 H [Right] O2 Saturation 91 L 92 98 12/01/23 21:43 Temperature Heart Rate 73 Heart Rate [ Monitoring electrodes] Respiratory 18 Rate Blood Pressure 159/86 H Blood Pressure [Right] O2 Saturation 96 Oxygen O2 Source Room air - Labs Labs: Laboratory Tests 12/01/23 12/01/23 12/01/23 18:29 18:29 18:54 WBC 6.1 RBC 2.77 L Hgb 6.1 L* Hct 21.3 L MCV 76.9 L MCH 22.0 L MCHC 28.6 L RDW 14.6 Plt Count 89 L MPV 9.0 Neut # (Auto) 4.1 Lymph # (Auto) 1.3 L [place] # (Auto) 0.4 Eos # (Auto) 0.2 Baso # (Auto) 0.0 Absolute Nucleated RBC 0.00 Nucleated RBC % 0.0 Sodium 133 L Potassium 4.3 Chloride 107 Carbon Dioxide 18 L Anion Gap 8.0 BUN 65 H Creatinine 2.0 H Estimated GFR (MDRD) 32 L Glucose 219 H Calcium 8.2 L Total Bilirubin 0.4 AST 21 ALT 20 Alkaline Phosphatase 130 H Total Protein 7.4 Albumin 2.6 L Globulin 4.8 H Albumin/Globulin Ratio 0.5 L Blood Type A POSITIVE Antibody Screen NEGATIVE Crossmatch IS Only See Detail - Rads (name of study) X-ray of the chest and left shoulder are negative with the exception of moderate AC joint degeneration Relevant Findings:: Final report received, EMP independent interpretation of test PD Medical Decision Making - ED course ED course: 78-year-old gentleman with multiple chronic illnesses presents with nausea and vomiting after switching from his usual diet to ensure earlier this week. He appears well, has a unremarkable abdominal examination. No chest pain. He does have a grade 2 large sacral and buttock pressure ulcer and has chronic catheter pain from his indwelling Mahan catheter. He also wants workup of his left shoulder pain which is also chronic. In the department he received 1 mg of hydromorphone for pain and we ascertained that he is quite anemic. The anemia is chronic but worse than his usual and he is crossmatched for 1 unit of blood. He has chemistry panel notable for stable significant renal dysfunction and hyperglycemia. He did not want anything for the nausea while here. Departure - Departure Disposition: 01 Home, Self Care Clinical Impression: Chronic anemia, Hx of right BKA, Type 2 diabetes mellitus, Chronic left shoulder pain, Nausea Condition: Stable Record reviewed to determine appropriate education?: Yes Instructions: ED Torn Rotator Cuff Comments: You are seen tonight for nausea and vomiting. You are worried about the chronic pain in your left shoulder and this is most consistent with a rotator cuff issue. Your anemia was worse than normal and he did receive 1 unit of blood. Call your doctor to arrange a follow-up appointment, make the next available appointment. In the interim, return anytime if worse or if new symptoms dev elop. Forms: PCP List
[2023-12-01 18:35] LABS: BASOPHILS % (AUTO) 0.7 %; EOSINOPHILS # (AUTO) 0.2 10^3/uL (0.0-0.7); EOSINOPHILS % (AUTO) 3.5 %; HCT - HEMATOCRIT 21.3 % (42.0-52.0); HGB - HEMOGLOBIN 6.1 g/dL (14.0-18.0); LYMPHOCYTES # (AUTO) 1.3 10^3/uL (1.5-3.5); LYMPHOCYTES % (AUTO) 21.5 %; MEAN CORPUSCULAR HGB CONC 28.6 g/dL (32.0-36.0); MEAN CORPUSCULAR VOLUME 76.9 fL (80.0-94.0); MONOCYTES # (AUTO) 0.4 10^3/uL (0.0-1.0); MONOCYTES % (AUTO) 7.3 %; NEUTROPHILS # (AUTO) 4.1 10^3/uL (1.5-6.6); NEUTROPHILS % (AUTO) 66.7 %; PLT - PLATELET COUNT 89 10^3/uL (130-450); RED BLOOD COUNT 2.77 10^6/uL (4.70-6.10); RED CELL DISTRIBUTION WIDTH 14.6 % (12.0-15.0); WHITE BLOOD COUNT 6.1 x10^3/uL (4.8-10.8)
[2023-12-01 18:50] LABS: ALBUMIN 2.6 g/dL (3.2-5.5); ALBUMIN/GLOBULIN RATIO 0.5 (1.0-2.2); BILIRUBIN,TOTAL 0.4 mg/dL (0.2-1.0); CALCIUM 8.2 mg/dL (8.5-10.3); POTASSIUM 4.3 mmol/L (3.5-4.5); TOTAL PROTEIN 7.4 g/dL (6.4-8.9)
[2023-12-01] MEDS: HYDROmorphone 1 MG/ML CARPUJECT IVP STA (19:51)
--- NOTE | 2023-12-01 20:02 | XRAY Report ---
PROCEDURE: Chest 1V INDICATIONS: cough TECHNIQUE: One view of the chest was acquired. COMPARISON: None. FINDINGS: Surgical changes and devices: Aortic valvuloplasty. Lungs and pleura: No pleural effusions or pneumothorax. Lungs are clear. Mediastinum: Mediastinal contours appear normal. Heart size is prominent, stable. Bones and chest wall: No suspicious bony lesions. Overlying soft tissues appear unremarkable. IMPRESSION: No acute cardiopulmonary process. Reviewed by: Quinn Watson MD on 12/01/2023 8:01 PM PDT Approved by: Quinn Watson MD on 12/01/2023 8:01 PM PDT Station ID: [id number]
--- NOTE | 2023-12-01 20:03 | XRAY Report ---
PROCEDURE: Shoulder 2+V LT INDICATIONS: shoulder pain TECHNIQUE: 3 views of the shoulder were acquired. COMPARISON: None. FINDINGS: Bones: No fractures or dislocations. Moderate acromioclavicular joint degeneration. No suspicious b maliha lesions. Visualized ribs appear intact. Soft tissues: No suspicious soft tissue calcifications. The visualized lungs are within normal limi ts. IMPRESSION: No acute bony abnormality. Moderate acromioclavicular joint degeneration. Reviewed by: Quinn Nielson MD on 12/01/2023 8:02 PM PDT Approved by: Quinn Nielson MD on 12/01/2023 8:02 PM PDT Station ID: [id number]
[2023-12-01] MEDS: diphenhydrAMINE 25 MG CAPSULE PO STA (21:51)
[2023-12-02 00:34] VITALS: BP 167/88; O2SAT 94
== END 2023-12-02 00:30 | disposition home or self-care (01) ==
LOC: EDUNIT# → ED 18:09
DX: D64.9 Anemia, unspecified (principal); E11.65 Type 2 diabetes mellitus with hyperglycemia; M25.512 Pain in left shoulder; G89.29 Other chronic pain; R11.2 Nausea with vomiting, unspecified; L89.322 Pressure ulcer of left buttock, stage 2; L89.312 Pressure ulcer of right buttock, stage 2; L89.152 Pressure ulcer of sacral region, stage 2; Z79.4 Long term (current) use of insulin; Z89.511 Acquired absence of right leg below knee
CPT/HCPCS: 36415; 36430; 71045; 73030; 80053; 85025; 86850; 86900; 86901; 86920; 96374; 99284; 99285; A9270; J1170; P9016

== ENCOUNTER 2023-12-02 00:36 | Outpatient (CLI) | payer MEDICARE, OTHER | END 2023-12-02 23:59 | disposition home or self-care (01) | LOC: EMS 00:36 | PROVIDERS: ATTEND Emergency Medicine | DX: D64.9 Anemia, unspecified (principal); Z74.01 Bed confinement status; Z89.511 Acquired absence of right leg below knee | CPT/HCPCS: A0425; A0428 ==

== ENCOUNTER 2023-12-09 19:03 | Outpatient (CLI) | payer MEDICARE, OTHER | END 2023-12-09 23:59 | disposition critical access hospital (66) | LOC: EMS 19:03 | DX: L98.419 Non-pressure chronic ulcer of buttock with unspecified severity (principal) | CPT/HCPCS: A0425; A0429 ==

== ENCOUNTER 2023-12-09 19:27 | Emergency (ER) | payer MEDICARE, OTHER ==
--- NOTE | 2023-12-09 19:35 | ED Physician Documentation ---
History of Present Illness - Stated complaint Stated Complaint: ULCER PAIN , BUTT PAIN - Additonal information Additional information: Patient is a 78-year-old male past medical history of type 2 diabetes, history of peripheral arterial disease and coronary artery disease he comes from a residential. Patient notes he is mainly bedbound and incontinence. This is contributing to his sacral wounds. He does have nurses that help with dressing changes and positioning at his facility. He notes worsening pain down there. No numbness tingling no foul-smelling. He has been trying to put barrier creams on it to help with his symptoms. Patient previously has followed up with wound care in the past. He notes he currently has not due to being discharged as his wounds had healed previously. PD PAST MEDICAL HISTORY - Past Medical History Cardiovascular: Hypertension, High cholesterol, Coronary artery disease, Peripheral Vascular Disease, [place] Respiratory: COPD, Shortness of breath Neuro: Peripheral neuropathy Endocrine/Autoimmune: Type 2 diabetes GI: GI bleed : Nocturia, Frequency, Kidney stones Psych: Anxiety, Panic attacks Musculoskeletal: Fibromyalgia, Chronic back pain - Past Surgical History Past Surgical History: Yes Ortho: Amputation Cardiovascular: Coronary stent HEENT: Cataracts - Present Medications Home Medications: Ambulatory Orders Medication Instructions Recorded Confirmed Furosemide 40 mg PO DAILY 12/30/17 09/16/23 Gabapentin [Neurontin] 300 mg PO TID 06/01/18 09/16/23 Insulin Glargine [Lantus Solostar] 30 units SUBQ BID 11/27/22 09/16/23 Diclofenac Sodium [Arthritis Pain] 1 applic TOP Q8HR PRN 02/07/23 09/16/23 Ondansetron Odt [Zofran] 4 mg TL Q6H PRN #10 tablet 02/23/23 09/16/23 Ammonium Lactate 1 appful TOP Q8HR 02/24/23 09/16/23 Calamine/Zinc Oxide [Calamine 177 ml TP PRN PRN 02/24/23 09/16/23 Lotion] Melatonin 3 mg PO HS 02/24/23 09/16/23 Sennosides [Senna] 2 tab PO PRN PRN 02/24/23 09/16/23 Sodium Chloride [Saline Nasal 1 - 2 spr NS Q6HR PRN 02/24/23 09/16/23 [place]] Spironolactone [Aldactone] 25 mg PO HS 02/24/23 09/16/23 Tamsulosin [Flomax] 0.8 mg PO DAILY 02/24/23 09/16/23 carvediloL [Coreg] 6.25 mg PO BID 02/24/23 09/16/23 Fluticasone [Flonase] 1 applic INH DAILY 09/01/23 09/16/23 Loratadine [Claritin] 1 cap PO DAILY 09/01/23 09/16/23 Omeprazole 1 tab PO DAILY 09/01/23 09/16/23 amLODIPine [Norvasc] 1 tab PO DAILY 09/01/23 09/16/23 hydrALAZINE [Apresoline] 1 tab PO BID PRN 09/01/23 09/16/23 Acetaminophen [Tylenol] 500 mg PO Q4HR PRN 09/16/23 09/16/23 Albuterol Sulfate [Proair 90 mcg IH Q4HR PRN 09/16/23 09/16/23 Respiclick] Mupirocin 2% Oint [Bactroban 2% 1 applic TOP ONCE #50 gm 12/09/23 Oint] Zinc Oxide 20% Oint [Zinc Oxide] 1 applic TOP BID #30 gm 12/09/23 - Allergies Allergies/Adverse Reactions: Allergies Allergy/AdvReac Type Severity Reaction Status Date / Time pregabalin [From Lyrica] Allergy Intermediate unknown Verified 12/09/23 19:38 simvastatin [From Zocor] Allergy Intermediate Nausea Verified 12/09/23 19:38 sulfamethoxazole Allergy Intermediate unknown Verified 12/09/23 19:38 [From Septra] trimethoprim [From Septra] Allergy Intermediate unknown Verified 12/09/23 19:38 levofloxacin Allergy Unknown Verified 12/09/23 19:38 lisinopril Allergy Unknown Verified 12/09/23 19:38 tetracycline [Tetracycline] Allergy Rash Verified 12/09/23 19:38 vancomycin Allergy Unknown Verified 12/09/23 19:38 - Social History Does the pt smoke?: No Smoking Status: Never smoker Does the pt drink ETOH?: No Does the pt have substance abuse?: No - Immunizations Immunizations are current?: Yes - POLST Patient has POLST: No POLST Status: Full Code PD ED PE NORMAL - Vitals Vital signs reviewed: Yes - General General: Alert and oriented X 3 - HEENT HEENT: Atraumatic - Neck Neck: Supple, no meningeal sign - Cardiac Cardiac: RRR, No murmur, No gallop, No rub - Respiratory Respiratory: No respiratory distress, Clear bilaterally - Abdomen Abdomen: Normal bowel sounds, Soft, Other (Distended abdomen but no fluid wave no palpable pain.) - Male Male : Other (Grade 1 sacral ulcer appreciated no extension to penile region or testicular region. Mild erythema to posterior buttocks but no exposure to fat or bone. No significant drainage or warmth on exam. Mild erythema with some excoriations and minimal bleeding.) - Extremities Extremities: No deformity - Neuro Neuro: Alert and oriented X 3 Results - Vitals Vitals: Oxygen O2 Source Room air PD Medical Decision Making - ED course Complexity details: reviewed old records, reviewed results ED course: Patient is a 78-year-old male presenting to the emergency department with concerns for sacral wound. Patient comes from assisted living facility for p ersistent pain to sacral and buttocks pain. Patient denies any fevers or chills. He follows with wound care for history of sacral wounds. He is not on any antibiotics regularly. He does not wear bandages to cover the wounds given he is incontinent at baseline and was told that this would worsen his wounds. He has been applying barrier cream with mild improvement. He notes wound has significantly improved from when he was in a residential a few months ago. He denies any abdominal pain no nausea vomiting fevers or chills. Vital stable on arrival. Physical exam shows grade 1/2 sacral wound with no palpable induration or fluctuance. Area covers sacrum into bilateral buttocks. There does appear to be barrier cream but no bandages in the area. Patient has no abdominal tenderness with no rebound or guarding on examination. No extension into the genital region on exam. Discussed with patient he is doing well with the wound and continue to follow-up with wound care in the outpatient setting. He will have barrier cream and topical antibiotic sent to his pharmacy to help with wound care however he was instructed to return with any abdominal pain fevers chills or severe pain. He will return to the ED with any other new or worsening symptoms. Patient understands and is agreeable with this plan. Departure - Departure Disposition: 01 Home, Self Care Clinical Impression: Wound of sacral region, Pressure ulcer Condition: Good Prescriptions: Mupirocin 2% Oint [Bactroban 2% Oint] 1 applic TOP ONCE #50 gm Zinc Oxide 20% Oint [Zinc Oxide] 1 applic TOP BID #30 gm Comments: You were seen here in the emergency department for your sacral wound your workup here was otherwise benign. Your sacral wound appears grade 1/grade 2 this is where we do a majority of padding to relieve pressure frequent changes and barrier creams to prevent worsening of this ulcer. You are doing well on increasing your protein and remaining off of it please continue with this. If you feel it worsens you should return to the emergency department I have given you the number for wound care if you can follow-up. If you develop any fevers or chills please return to the emergency department and follow-up with your PCP in the outpatient setting. Forms: PCP List Discharge Date/Time: 12/09/23 20:49
[2023-12-09] MEDS: HYDROcod/ACETAM 5/325 MG TABLET PO STA (20:13)
[2023-12-09] MEDS: MUPIROCIN 2% OINT 1 GM TOP STA (20:13)
[2023-12-09 21:00] VITALS: BP 122/67; O2SAT 98
== END 2023-12-09 20:49 | disposition home or self-care (01) ==
LOC: EDUNIT# → ED 19:27
DX: L89.151 Pressure ulcer of sacral region, stage 1 (principal); L89.321 Pressure ulcer of left buttock, stage 1; L89.311 Pressure ulcer of right buttock, stage 1; E66.01 Morbid (severe) obesity due to excess calories; Z68.35 Body mass index [BMI] 35.0-35.9, adult
CPT/HCPCS: 99283; 99284; A9270

== ENCOUNTER 2023-12-09 20:54 | Outpatient (CLI) | payer MEDICARE, OTHER | END 2023-12-09 20:55 | disposition home or self-care (01) | LOC: EMS 20:54 | PROVIDERS: ATTEND Physician Assistant | DX: L89.159 Pressure ulcer of sacral region, unspecified stage (principal); E66.9 Obesity, unspecified | CPT/HCPCS: A0425; A0428 ==

== ENCOUNTER 2023-12-15 20:43 | Outpatient (CLI) | payer MEDICARE, OTHER | END 2023-12-15 23:59 | disposition EMS.NT | LOC: EMS 20:43 | DX: K62.89 Other specified diseases of anus and rectum (principal) ==

== ENCOUNTER 2023-12-16 06:40 | Outpatient (CLI) | payer MEDICARE, OTHER | END 2023-12-16 23:59 | disposition critical access hospital (66) | LOC: EMS 06:40 | DX: K62.89 Other specified diseases of anus and rectum (principal) | CPT/HCPCS: A0425; A0429 ==

== ENCOUNTER 2023-12-16 07:10 | Inpatient (IN) | payer MEDICARE, OTHER ==
--- NOTE | 2023-12-16 07:27 | ED Physician Documentation ---
History of Present Illness - Stated complaint Stated Complaint: RECTAL PX - Chief complaint Chief Complaint: Abd Pain - History obtained from History obtained from: Patient - Additonal information Additional information: 78-year-old gentleman with history of type 2 diabetes, PAD, CAD, chronic Mahan. He complains of 3 days of severe rectal pain. He states that he has had this before, but over the last 3 days has been unbearable. He denies fevers or chills. He has had normal bowel movements. PD PAST MEDICAL HISTORY - Past Medical History Cardiovascular: Hypertension, High cholesterol, Coronary artery disease, Peripheral Vascular Disease, [place] Respiratory: COPD, Shortness of breath Neuro: Peripheral neuropathy Endocrine/Autoimmune: Type 2 diabetes GI: GI bleed : Nocturia, Frequency, Kidney stones Psych: Anxiety, Panic attacks Musculoskeletal: Fibromyalgia, Chronic back pain - Past Surgical History Past Surgical History: Yes Ortho: Amputation Cardiovascular: Coronary stent HEENT: Cataracts - Present Medications Home Medications: Ambulatory Orders Medication Instructions Recorded Confirmed Furosemide 40 mg PO DAILY 12/30/17 12/16/23 Gabapentin [Neurontin] 300 mg PO TID 06/01/18 12/16/23 Insulin Glargine [Lantus Solostar] 30 units SUBQ BID 11/27/22 12/16/23 Diclofenac Sodium [Arthritis Pain] 1 applic TOP Q8HR PRN 02/07/23 12/16/23 Ondansetron Odt [Zofran] 4 mg TL Q6H PRN #10 tablet 02/23/23 12/16/23 Ammonium Lactate 1 appful TOP Q8HR 02/24/23 12/16/23 Calamine/Zinc Oxide [Calamine 177 ml TP PRN PRN 02/24/23 12/16/23 Lotion] Melatonin 3 mg PO HS 02/24/23 12/16/23 Sennosides [Senna] 2 tab PO PRN PRN 02/24/23 12/16/23 Sodium Chloride [Saline Nasal 1 - 2 spr NS Q6HR PRN 02/24/23 12/16/23 [place]] Spironolactone [Aldactone] 25 mg PO HS 02/24/23 12/16/23 Tamsulosin [Flomax] 0.8 mg PO DAILY 02/24/23 12/16/23 carvediloL [Coreg] 6.25 mg PO BID 02/24/23 12/16/23 Fluticasone [Flonase] 1 applic INH DAILY 09/01/23 12/16/23 Loratadine [Claritin] 1 cap PO DAILY 09/01/23 12/16/23 Omeprazole 1 tab PO DAILY 09/01/23 12/16/23 amLODIPine [Norvasc] 1 tab PO DAILY 09/01/23 12/16/23 hydrALAZINE [Apresoline] 1 tab PO BID PRN 09/01/23 12/16/23 Acetaminophen [Tylenol] 500 mg PO Q4HR PRN 09/16/23 12/16/23 Albuterol Sulfate [Proair 90 mcg IH Q4HR PRN 09/16/23 12/16/23 [place]] Mupirocin 2% Oint [Bactroban 2% 1 applic TOP ONCE #50 gm 12/09/23 12/16/23 Oint] Zinc Oxide 20% Oint [Zinc Oxide] 1 applic TOP BID #30 gm 12/09/23 12/16/23 - Allergies Allergies/Adverse Reactions: Allergies Allergy/AdvReac Type Severity Reaction Status Date / Time pregabalin [From Lyrica] Allergy Intermediate unknown Verified 12/16/23 07:19 simvastatin [From Zocor] Allergy Intermediate Nausea Verified 12/16/23 07:19 sulfamethoxazole Allergy Intermediate unknown Verified 12/16/23 07:19 [From Septra] trimethoprim [From Septra] Allergy Intermediate unknown Verified 12/16/23 07:19 levofloxacin Allergy Unknown Verified 12/16/23 07:19 lisinopril Allergy Unknown Verified 12/16/23 07:19 tetracycline [Tetracycline] Allergy Rash Verified 12/16/23 07:19 vancomycin Allergy Unknown Verified 12/16/23 07:19 - Social History Does the pt smoke?: No Smoking Status: Never smoker Does the pt drink ETOH?: No Does the pt have substance abuse?: No - Immunizations Immunizations are current?: Yes - POLST Patient has POLST: No POLST Status: Full Code PD ED PE NORMAL - Vitals Vital signs reviewed: Yes - General General: Other (He appears uncomfortable and in pain, somewhat slow mumbling speech.) - Abdomen Abdomen: Normal bowel sounds, Soft, Non tender - Rectal Rectal: Other (There is a Mahan catheter in place draining clear urine. He is incontinent of normal color and consistency stool. Wound cleaned up there is no visible abnormality of the rectum. There is a grade 1 large sacral pressure ulcer. The rectum is tender without mass.) - Derm Derm: Normal color, Warm and dry Results - Vitals Vitals: Vital Signs - 24 hr 12/16/23 12/16/23 07:19 10:00 Temperature 36.5 C Heart Rate 76 81 Respiratory 22 22 Rate Blood Pressure 119/63 101/89 H O2 Saturation 95 95 Oxygen O2 Source Room air Oxygen Flow Rate 2 - Labs Labs: Laboratory Tests 12/16/23 12/16/23 07:40 07:40 WBC 9.7 RBC 3.12 L Hgb 7.0 L* Hct 24.2 L MCV 77.6 L MCH 22.4 L MCHC 28.9 L RDW 16.2 H Plt Count 128 L MPV 10.0 Neut # (Auto) 6.7 H Lymph # (Auto) 1.7 [place] # (Auto) 0.9 Eos # (Auto) 0.2 Baso # (Auto) 0.1 Absolute Nucleated RBC 0.00 Nucleated RBC % 0.0 Sodium 131 L Potassium 4.0 Chloride 107 Carbon Dioxide 15 L Anion Gap 9.0 BUN 104 H* Creatinine 2.4 H Estimated GFR (MDRD) 26 L Glucose 132 H Calcium 8.9 Total Bilirubin 0.5 AST 18 ALT 14 Alkaline Phosphatase 126 H Total Protein 7.8 Albumin 2.9 L Globulin 4.9 H Albumin/Globulin Ratio 0.6 L PD Medical Decision Making - ED course ED course: He presents with rectal pain, he has a large sacral pressure ulcer, stage I, unchanged from prior. That said, he says it is his rectum that hurts, not the sacrum. Physical examination of the rectum is normal. Workup demonstrates fairly stable but severe anemia. He has been transfused in the past but does not quite cross the transfusion threshold today. He has some RAFAEL on CKD, creatinine today is 2.4, use usually 1.8-2.0 and there is a prerenal pattern to it. 78-year-old gentleman who is medically fragile with deconditioning and bedbound status and chronic Mahan presents with rectal pain. Examination was unrevealing. We did do a CT which demonstrated evidence of proctitis. He also has worsening of chronic anemia, not quite crossing the transfusion threshold. And RAFAEL on CKD. He probably does need at least observation in the hospital given his profound anemia and given the primary diagnosis of proctitis I discussed the case by phone with Dr. Choe, our on-call surgeon at approximately 9:40 AM who agrees with admission to medicine, bowel rest, enemas, and IV antibiotics. She does not feel there is an acute surgical issue which is good because previously he has been deemed too ill at baseline to have anesthesia at the small facility. Departure - Departure Disposition: 66 [facility] DC/Xfer Clinical Impression: Chronic anemia, Hx of coronary artery disease, Proctitis Acute on chronic kidney failure Qualifiers: Acute renal failure type: unspecified Chronic kidney disease stage: unspecified stage Qualified Code(s): N17.9 - Acute kidney failure, unspecified Sacral pressure sore Qualifiers: Pressure injury stage: stage 1 Qualified Code(s): L89.151 - Pressure ulcer of sacral region, stage 1 Condition: Stable Forms: PCP List
[2023-12-16 07:44] LABS: BASOPHILS # (AUTO) 0.1 10^3/uL (0.0-0.1); BASOPHILS % (AUTO) 0.5 %; EOSINOPHILS # (AUTO) 0.2 10^3/uL (0.0-0.7); EOSINOPHILS % (AUTO) 2.5 %; HCT - HEMATOCRIT 24.2 % (42.0-52.0); LYMPHOCYTES # (AUTO) 1.7 10^3/uL (1.5-3.5); LYMPHOCYTES % (AUTO) 17.1 %; MEAN CORPUSCULAR HEMOGLOBIN 22.4 pg (27.0-31.0); MEAN CORPUSCULAR HGB CONC 28.9 g/dL (32.0-36.0); MEAN CORPUSCULAR VOLUME 77.6 fL (80.0-94.0); MONOCYTES # (AUTO) 0.9 10^3/uL (0.0-1.0); MONOCYTES % (AUTO) 9.3 %; NEUTROPHILS # (AUTO) 6.7 10^3/uL (1.5-6.6); NEUTROPHILS % (AUTO) 69.4 %; PLT - PLATELET COUNT 128 10^3/uL (130-450); RED BLOOD COUNT 3.12 10^6/uL (4.70-6.10); RED CELL DISTRIBUTION WIDTH 16.2 % (12.0-15.0); WHITE BLOOD COUNT 9.7 x10^3/uL (4.8-10.8)
[2023-12-16] MEDS ORDERED: iohexoL-300 100 ML VIAL ONE (07:48)
[2023-12-16] MEDS: ONDANSETRON 4 MG/2 ML VIAL IVP STA (07:54)
[2023-12-16] MEDS: HYDROmorphone 1 MG/ML CARPUJECT IVP STA (07:54)
[2023-12-16 08:11] LABS: ALBUMIN 2.9 g/dL (3.2-5.5); ALBUMIN/GLOBULIN RATIO 0.6 (1.0-2.2); BILIRUBIN,TOTAL 0.5 mg/dL (0.2-1.0); CALCIUM 8.9 mg/dL (8.5-10.3); CREATININE 2.4 mg/dL (0.6-1.3); TOTAL PROTEIN 7.8 g/dL (6.4-8.9)
[2023-12-16] MEDS: SODIUM CHLORIDE 0.9% 1,000 ML IV STA (08:36)
--- NOTE | 2023-12-16 09:20 | CT Report ---
PROCEDURE: Abdomen/Pelvis WO INDICATIONS: rectal pain, diamante on ckd TECHNIQUE: A CT scan of the abdomen and pelvis was performed without the use of intravenous contrast. Images we re recorded and evaluated at appropriate window settings. Reformats: coronal and sagittal. For radiat ion dose reduction, the following was used: automated exposure control, adjustment of mA and/or kV ac cording to patient size. COMPARISON: 09/16/2023. FINDINGS: Image quality: Diagnostic. Lower chest: Small right pleural effusion with right basilar infiltrate/atelectasis is seen. Left bas ilar atelectasis is also noted.. Liver: There is hepatomegaly. Slightly lobulated liver contour is seen. No discrete hepatic lesion. Gallbladder: Multiple calcified stones are seen in dependent portion of gallbladder lumen. Gallbladde r is mildly distended. No definite gallbladder wall thickening. Biliary tree: No intrahepatic or extrahepatic dilation, accounting for age. Spleen: There is mild splenomegaly. Pancreas: No pancreatic ductal dilation. Previously described 2.1 x 1.4 cm hypodensity in right pancr eatic head region is less well seen on the current study however is grossly unchanged series 2 image 61. Adrenals: No adrenal nodule. Kidneys and ureters: Slightly atrophic-appearing right kidney compared to left side. No hydronephrosi s. Simple appearing bilateral renal cysts are seen. Nonobstructing right renal calculi are noted. No solid-appearing renal lesion. Stomach, bowel and peritoneum: There is no bowel obstruction. No gastric or small bowel wall thickeni ng. Fecal stasis in the colon is seen. There is suggestion of colonic wall thickening involving sigmo id colon and rectum. No abscess collection. No peritoneal free air. Small amount of free fluid is not ed adjacent to inferior aspect of right hepatic lobe. Lymph nodes: No central or retroperitoneal adenopathy. Vessels: No infrarenal aortic aneurysm. Reproductive organs: Enlarged prostate gland with mass effect on floor of urinary bladder is again se en.. Bladder: Mahan catheter is seen in a decompressed urinary bladder. Questionable bladder wall thickeni ng and adjacent mesenteric fat stranding. Low-grade cystitis cannot be excluded. Pelvic lymph nodes: No adenopathy by size criteria. Bones: No aggressive osseous abnormality. Other: No significant ventral or inguinal hernia. IMPRESSION: 1. Finding is concerning for infectious or inflammatory sigmoid colitis and proctitis. No abscess col lection. Trace amount of free fluid adjacent to the inferior aspect of chronic lobe. No gross free ai r. 2. Distended gallbladder with cholelithiasis. Chronic cholecystitis cannot be excluded, suggest clini luis miguel correlation. 3. Mild hepatosplenomegaly. No discrete hepatic or splenic lesion. Chronic cirrhotic appearing liver. 4. Stable appearance of hypodensity involving pancreatic head. No peripancreatic inflammatory changes . This could be further workup with MRI of abdomen and MRCP if indicated. 5. Other chronic findings as described above, not significantly changed from previous study. Reviewed by: Tayo Wagoner MD on 12/16/2023 9:19 AM PDT Approved by: Tayo Wagoner MD on 12/16/2023 9:19 AM PDT Station ID: [id number]
[2023-12-16] MEDS: SALINE ENEMA 133 ML BOTTLE RC STA (09:47)
[2023-12-16] MEDS: PIPERACILLIN/TAZOBACTAM 3.375 GM in SODIUM CHLORIDE 0.9% MINIBAG 100 ML IV STA (09:53)
[2023-12-16] MEDS: HYDROmorphone 0.5 MG/0.5 ML SYRINGE IVP STA (10:00)
[2023-12-16] MEDS: LACTATED RINGERS 1,000 ML IV SCH (11:49)
--- NOTE | 2023-12-16 14:13 | HISTORY & PHYSICAL EXAMINATION ---
Chief Complaint - Chief Complaint Chief Complaint: Rectal pain History of Present Illness - Admitted From Admitted From:: home - History Obtained From Records Reviewed: yes History obtained from: chart review, ER staff Exam Limitations: patient on high-dose pain medication at time of my interview - History of Present Illness HPI Comment/Other: 78-year-old male history of type 2 diabetes, PAD, CAD, chronic Mahan presented to the ER with 3 days of severe rectal pain. Reports he has never had this before. Denies fever, chills In the ER CT was performed which showed evidence of proctitis. Lab work revealed RAFAEL on top of CKD as well as worsening of chronic edema. Surgery was consulted by ER provider, and decision was made to admit patient for bowel rest, antibiotics, fluid resuscitation History - Past Medical History Cardiovascular: reports: Hypertension, High cholesterol, Coronary artery disease, Peripheral Vascular Disease, [place] Respiratory: reports: COPD, Shortness of breath Neuro: reports: Peripheral neuropathy Endocrine/Autoimmune: reports: Type 2 diabetes GI: reports: GI bleed : reports: Nocturia, Frequency, Kidney stones Psych: reports: Anxiety, Panic attacks Musculoskeletal: reports: Fibromyalgia, Chronic back pain MRSA Hx?: No - Past Surgical History Ortho: reports: Amputation Cardiovascular: reports: Coronary stent HEENT: reports: Cataracts - Family & Social History Family History: Mother: , Diabetes, Type 2, Father: , CAD Living Situation: With spouse/s.o., With caregiver(s) (A 50 y/o male lives with them, helps around the house and caregiving.) Social History Notes: The patient lives in [place] with his who has A lzheimer's dementia. He states that he is the primary caregiver for his . He is retired. He quit smoking in 2002 prior to that he was a pack-a-day smoker for close to 40 years. He states that he does continue to drink but has cut down on his drinking recently. He has used marijuana to try to deal with his pain. He denies any other illicit drug use. - Substance History Use: Uses substance without health or social issues: Other (No cigarette use for 17 years.) - POLST Patient has POLST: No POLST Status: Full Code Meds/Allgy - Home Medications Home Medications: Ambulatory Orders Medication Instructions Recorded Confirmed Furosemide 40 mg PO DAILY 12/30/17 12/16/23 Insulin Glargine [Lantus Solostar] 30 units SUBQ BID 11/27/22 12/16/23 Diclofenac Sodium [Arthritis Pain] 1 applic TOP Q8HR PRN 02/07/23 12/16/23 Ondansetron Odt [Zofran] 4 mg TL Q6H PRN #10 tablet 02/23/23 12/16/23 Ammonium Lactate 1 appful TOP BID 02/24/23 12/16/23 Melatonin 3 mg PO HS 02/24/23 12/16/23 Sennosides [Senna] 8.6 mg PO PRN PRN 02/24/23 12/16/23 Sodium Chloride [Saline Nasal 1 - 2 spr NS Q6HR PRN 02/24/23 12/16/23 [place]] Spironolactone [Aldactone] 25 mg PO HS 02/24/23 12/16/23 Tamsulosin [Flomax] 0.8 mg PO HS 02/24/23 12/16/23 carvediloL [Coreg] 6.25 mg PO BID 02/24/23 12/16/23 Fluticasone [Flonase] 2 spray MAN DAILY 09/01/23 12/16/23 amLODIPine [Norvasc] 5 mg PO DAILY 09/01/23 12/16/23 hydrALAZINE [Apresoline] 10 mg PO BID PRN 09/01/23 12/16/23 Acetaminophen [Tylenol] 500 mg PO Q4HR PRN 09/16/23 12/16/23 Albuterol Sulfate [Proair 2 puffs IH Q4HR PRN 09/16/23 12/16/23 Respiclick] Gabapentin [Neurontin] 300 mg PO TID 12/16/23 12/16/23 Loratadine [All Day Allergy Relief] 20 mg PO DAILY 12/16/23 12/16/23 Miconazole Nitrate/Zinc Ox/Pet 1 applic TOP BID 12/16/23 12/16/23 [Eonyxtnoii-Rpyl-Cqazh 0.25-15%] Omeprazole [PriLOSEC] 20 mg PO DAILY 12/16/23 12/16/23 guaiFENesin [Mucus ER] 1,200 mg PO BID 12/16/23 12/16/23 - Allergies Allergies/Adverse Reactions: Allergies Allergy/AdvReac Type Severity Reaction Status Date / Time pregabalin [From Lyrica] Allergy Intermediate unknown Verified 12/16/23 07:19 simvastatin [From Zocor] Allergy Intermediate Nausea Verified 12/16/23 07:19 sulfamethoxazole Allergy Intermediate unknown Verified 12/16/23 07:19 [From Septra] trimethoprim [From Septra] Allergy Intermediate unknown Verified 12/16/23 07:19 levofloxacin Allergy Unknown Verified 12/16/23 07:19 lisinopril Allergy Unknown Verified 12/16/23 07:19 tetracycline [Tetracycline] Allergy Rash Verified 12/16/23 07:19 vancomycin Allergy Unknown Verified 12/16/23 07:19 Review of Systems - Constitutional Constitutional: denies: Fever, Chills - Gastrointestinal Gastrointestinal: reports: Abdominal pain. denies: Change in bowel habits ( reported unbearable rectal pain to ER staff) - Other Findings Other Findings: Patient had received IV pain medication prior to my interview. He was only able to answer some yes or no questions and was minimally contributive otherwise. ROS obtained from chart review and discussion with ER staff Exam - Vital Signs Reviewed Vital Signs: Yes Vital Signs: Vital Signs x48h Temp Pulse Pulse Resp BP BP Pulse Ox 12/16/23 11:44 36.5 C 81 20 135/64 H 92 12/16/23 11:21 12/16/23 10:00 81 22 101/89 H 95 12/16/23 07:19 36.5 C 76 22 119/63 95 O2 Flow Rate 12/16/23 11:44 2 12/16/23 11:21 2 12/16/23 10:00 12/16/23 07:19 - Physical Exam General Appearance: positive: Lethargic ( after pain medication) Eyes Bilateral: positive: Normal inspection, PERRL Neck: positive: Nml inspection, No JVD Respiratory: positive: Chest non-tender, No respiratory distress, Breath sounds nml Cardiovascular: positive: No murmur, No gallop Peripheral Pulses: positive: 2+ ( right BKA. Pulses intact otherwise) Abdomen: positive: Nml bowel sounds, Tenderness Rectal: positive: Tenderness Skin: positive: Other ( chronic, dark discoloration in vera. Dry/flaky skin) Extremities: positive: No pedal edema ( right BKA. Delayed cap refill), Other Neurologic/Psychiatric: positive: Other ( very sedated from pain medication. Nods appropriately, answers yes or no questions, moves all extremities) Sepsis Event Note (H) - Evaluation Current Stage of Sepsis: Ruled out Conclusion/Plan - Problem List (1) Proctitis Conclusion/Plan: Surgery consulted by ER provider Clear liquid diet IVF Zosyn As needed enemas (2) Acute on chronic kidney failure Conclusion/Plan: IVF BMP in a.m. Likely prerenal secondary to dehydration Renally dose Zosyn Qualifiers: Acute renal failure type: unspecified Chronic kidney disease stage: unspecified stage Qualified Code(s): N17.9 - Acute kidney failure, u nspecified; N18.9 - Chronic kidney disease, unspecified (3) Chronic anemia Conclusion/Plan: Check iron/TIBC/B12/ reticulocyte Recheck hemoglobin as it may drop due to dilution (4) Sacral pressure sore Conclusion/Plan: supportive care Offload sacrum Qualifiers: Pressure injury stage: stage 1 Qualified Code(s): L89.151 - Pressure ulcer of sacral region, stage 1 (5) Hx of coronary artery disease Conclusion/Plan: echo 12/04/2022 shows EF 55 to 60% (6) Type 2 diabetes mellitus Conclusion/Plan: continue home regimen ACHS glucose check Qualifiers: - Lab Results Lab results reviewed: Yes Fish Bones: 12/16/23 07:40 12/16/23 07:40 - Diagnostic Imaging Results Diagnostic Imaging Results: positive: Final report reviewed, Read contemporaneously Diagnostic Imaging Results Comments: CT abdomen/pelvis Core Measures - Anticipated LOS I expect patient to be DC'd or transferred within 96 hours.: Yes - DVT/VTE - Prophylaxis VTE/DVT Device ordered at admit?: No VTE/DVT Prophylaxis med ordered at admit?: Yes
--- NOTE | 2023-12-16 14:13 | PHARMACY PROGRESS NOTE ---
- Best Possible Medication History Admit Date and Time: 12/16/23 1047 Processed by: Pharmacy Medications reviewed in ED?: Yes Medication History completed: Yes Patient Interview: Pt unable to participate Secondary Source(s): Written medication list, Pharmacy records, Insurance records As the person ultimately responsible for medication therapy, providers are able to order a medication from an existing home medication list in [facility] via the "Reconcile Routine" prior to Confirmation of that medication by faculty support coordinator. Such practice is discouraged except when the physician, in their clinical judgment, deems that a medical need exists for a medication without regard to previous use.
[2023-12-16] MEDS ORDERED: SODIUM CHLORIDE 0.65% NASAL SPRAY NAS PRN (14:42)
[2023-12-16] MEDS ORDERED: DICLOFENAC SODIUM 1% GEL 50 GM TUBE TOP PRN (14:42)
[2023-12-16] MEDS ORDERED: hydrALAZINE 10 MG TABLET PO PRN (14:42)
[2023-12-16] MEDS ORDERED: SENNA 8.6 MG TABLET PO PRN (14:42)
[2023-12-16] MEDS ORDERED: ALBUTEROL NEB 2.5 MG/3 ML INH PRN (15:03)
[2023-12-16] MEDS: PIPERACILLIN/TAZOBACTAM 2.25 GM in SODIUM CHLORIDE 0.9% MINIBAG 100 ML IV SCH (15:04)
[2023-12-16 15:07] LABS: ABSOLUTE RETICS # AUTO 0.068 10^6/uL (0.020-0.110); RED BLOOD COUNT 3.11 10^6/uL (4.70-6.10); RETICULOCYTE COUNT % (AUTO) 2.19 % (0.5-2.3)
[2023-12-16 15:22] LABS: IRON < 10 ug/dL (50-212); TOTAL IRON BINDING CAPACITY 259 ug/dL (250-450); TRANSFERRIN 185 mg/dL (203-362)
[2023-12-16] MEDS: ACETAMINOPHEN 325 MG TABLET PO PRN (15:40)
--- NOTE | 2023-12-16 17:18 | MISCELLANEOUS PROVIDER NOTE ---
Miscellaneous Provider Note - - Note: vesicular rash noted on right hip, will place in contact precautions and initiate acyclovir
[2023-12-16] MEDS: IRON DEXTRAN 1,000 MG in SODIUM CHLORIDE 0.9% 250 ML IV ONE (17:32)
[2023-12-16] MEDS: SODIUM CHLORIDE FLUSH 0.9% 10 ML SYRINGE IVP SCH (17:33)
[2023-12-16] MEDS: SALINE ENEMA 133 ML BOTTLE RC SCH (18:46)
[2023-12-16] MEDS: IRON DEXTRAN 200 MG in SODIUM CHLORIDE 0.9% 100ML 100 ML IV ONE (19:02)
[2023-12-16 19:06] LABS: HCT - HEMATOCRIT 21.2 % (42.0-52.0)
[2023-12-16 19:10] LABS: HGB - HEMOGLOBIN 6.2 g/dL (14.0-18.0)
--- NOTE | 2023-12-16 19:45 | PROVIDER PROGRESS NOTE ---
Associate Professor Of Biostatistics Note - Associate Professor Of Biostatistics Note Associate Professor Of Biostatistics Note: RN paged "Hgb 6.2 BP 116/56 HR 80 Temp 36.6* O2 96% RR 18 Please advise" H&P reviewed and prior hgb 7.0 noted. H&P mentions expected dilution worsening anemia. Given hgb 6.2, will proceed with transfusion if patient accepts. RN to seek consent if not already done at time of admission since expected. Lewis Crook
[2023-12-16] MEDS ORDERED: AMMONIUM LACTATE 227 GM BOTTLE TOP SCH (21:00)
[2023-12-16] MEDS ORDERED: MICONAZOLE NITRATE TOP SCH (21:00)
[2023-12-16] MEDS ORDERED: ZINC OXIDE TOP SCH (21:00)
[2023-12-16] MEDS ORDERED: GUAIFENESIN 1200 MG PO SCH (21:00)
[2023-12-16] MEDS ORDERED: [UNRECOGNIZED DRUG - OTHER] TOP SCH (21:00)
[2023-12-16] MEDS ORDERED: PETROLATUM TOP SCH (21:00)
--- NOTE | 2023-12-16 21:09 | CONSULTATION NOTE ---
Chief Complaint - Chief Complaint Chief Complaint: rectal pain History of Present Illness - Admitted From Admitted From:: ED - History Obtained From History obtained from: ED provider, H&P, patient Exam Limitations: patient poor historian, minimal history provided - History of Present Illness HPI Comment/Other: "78-year-old male history of type 2 diabetes, PAD, CAD, chronic Mahan presented to the ER with 3 days of severe rectal pain. Reports he has never had this before. Denies fever, chills In the ER CT was performed which showed evidence of proctitis. Lab work revealed RAFAEL on top of CKD as well as worsening of chronic edema." History - Past Medical History Cardiovascular: reports: Hypertension, High cholesterol, Coronary artery disease, Peripheral Vascular Disease, [place] Respiratory: reports: COPD, Shortness of breath Neuro: reports: Peripheral neuropathy Endocrine/Autoimmune: reports: Type 2 diabetes GI: reports: GI bleed : reports: Nocturia, Frequency, Kidney stones Psych: reports: Anxiety, Panic attacks Musculoskeletal: reports: Fibromyalgia, Chronic back pain MRSA Hx?: No - Past Surgical History Ortho: reports: Amputation Cardiovascular: reports: Coronary stent HEENT: reports: Cataracts - Family & Social History Family History: Mother: , Diabetes, Type 2, Father: , CAD Living Situation: With spouse/s.o., With caregiver(s) (A 50 y/o male lives with them, helps around the house and caregiving.) Social History Notes: The patient lives in [place] with his who has Alzheimer's dementia. He states that he is the primary caregiver for his . He is retired. He quit smoking in 2002 prior to that he was a pack-a-day smoker for close to 40 years. He states that he does continue to drink but has cut down on his drinking recently. He has used marijuana to try to deal with his pain. He denies any other illicit drug use. - Substance History Use: Uses substance without health or social issues: Other (No cigarette use for 17 years.) - POLST Patient has POLST: No POLST Status: Full Code Meds/Allgy - Home Medications Home Medications: Ambulatory Orders Medication Instructions Recorded Confirmed Furosemide 40 mg PO DAILY 12/30/17 12/16/23 Insulin Glargine [Lantus Solostar] 30 units SUBQ BID 11/27/22 12/16/23 Diclofenac Sodium [Arthritis Pain] 1 applic TOP Q8HR PRN 02/07/23 12/16/23 Ondansetron Odt [Zofran] 4 mg TL Q6H PRN #10 tablet 02/23/23 12/16/23 Ammonium Lactate 1 appful TOP BID 02/24/23 12/16/23 Melatonin 3 mg PO HS 02/24/23 12/16/23 Sennosides [Senna] 8.6 mg PO PRN PRN 02/24/23 12/16/23 Sodium Chloride [Saline Nasal 1 - 2 spr NS Q6HR PRN 02/24/23 12/16/23 [place]] Spironolactone [Aldactone] 25 mg PO HS 02/24/23 12/16/23 Tamsulosin [Flomax] 0.8 mg PO HS 02/24/23 12/16/23 carvediloL [Coreg] 6.25 mg PO BID 02/24/23 12/16/23 Fluticasone [Flonase] 2 spray MAN DAILY 09/01/23 12/16/23 amLODIPine [Norvasc] 5 mg PO DAILY 09/01/23 12/16/23 hydrALAZINE [Apresoline] 10 mg PO BID PRN 09/01/23 12/16/23 Acetaminophen [Tylenol] 500 mg PO Q4HR PRN 09/16/23 12/16/23 Albuterol Sulfate [Proair 2 puffs IH Q4HR PRN 09/16/23 12/16/23 Respiclick] Gabapentin [Neurontin] 300 mg PO TID 12/16/23 12/16/23 Loratadine [All Day Allergy Relief] 20 mg PO DAILY 12/16/23 12/16/23 Miconazole Nitrate/Zinc Ox/Pet 1 applic TOP BID 12/16/23 12/16/23 [Dokbeiztbr-Tzdq-Mapww 0.25-15%] Omeprazole [PriLOSEC] 20 mg PO DAILY 12/16/23 12/16/23 guaiFENesin [Mucus ER] 1,200 mg PO BID 12/16/23 12/16/23 - Allergies Allergies/Adverse Reactions: Allergies Allergy/AdvReac Type Severity Reaction Status Date / Time pregabalin [From Lyrica] Allergy Intermediate unknown Verified 12/16/23 07:19 simvastatin [From Zocor] Allergy Intermediate Nausea Verified 12/16/23 07:19 sulfamethoxazole Allergy Intermediate unknown Verified 12/16/23 07:19 [From Septra] trimethoprim [From Novra] Allergy Intermediate unknown Verified 12/16/23 07:19 levofloxacin Allergy Unknown Verified 12/16/23 07:19 lisinopril Allergy Unknown Verified 12/16/23 07:19 tetracycline [Tetracycline] Allergy Rash Verified 12/16/23 07:19 vancomycin Allergy Unknown Verified 12/16/23 07:19 Exam - Vital Signs Reviewed Vital Signs: Yes Vital Signs: Vital Signs x48h Temp Pulse Resp BP Pulse Ox O2 Flow Rate 12/16/23 20:42 36.6 C 76 14 113/55 L 95 2 12/16/23 20:26 36.6 C 81 18 124/60 96 2 12/16/23 19:32 36.6 C 80 18 116/56 L 96 2 12/16/23 15:31 36.7 C 83 22 124/69 92 2 - Physical Exam General Appearance: positive: Mild distress, Other (moans in pain with light palpation nearly anywhere on body during exam) Respiratory: positive: No respiratory distress Cardiovascular: positive: Regular rate & rhythm Abdomen: positive: Tenderness (generalized tenderness). negative: No distention, Guarding, Rebound Rectal: positive: Other (Large volume of impacted stool on LISANDRA, able to disimpact 6-7 large stool balls, trace amount of blood on surface of one stool ball) Extremities: positive: Other (RIght BKA) Conclusion and Plan - Lab Results Laboratory Results 12/16/23 20:13: POC Whole Bld Glucose 188 H 12/16/23 18:56: Hgb 6.2 L*, Hct 21.2 L 12/16/23 15:29: POC Whole Bld Glucose 111 H 12/16/23 15:00: Iron < 10 L, TIBC 259, % Saturation TNP, Transferrin 185 L, Vitamin B12 767 12/16/23 15:00: RBC 3.11 L, Reticulocyte % (Auto) 2.19, Absolute Retic 0.068 12/16/23 09:46: Blood Type A POSITIVE, Antibody Screen NEGATIVE, Crossmatch IS Only See Detail 12/16/23 07:40: Sodium 131 L, Potassium 4.0, Chloride 107, Carbon Dioxide 15 L, Anion Gap 9.0, BUN 104 H*, Creatinine 2.4 H, Estimated GFR (MDRD) 26 L, Glucose 132 H, Calcium 8.9, Total Bilirubin 0.5, AST 18, ALT 14, Alkaline Phosphatase 126 H, Total Protein 7.8, Albumin 2.9 L, Globulin 4.9 H, Albumin/Globulin Ratio 0.6 L 12/16/23 07:40: WBC 9.7, RBC 3.12 L, Hgb 7.0 L*, Hct 24.2 L, MCV 77.6 L, MCH 22.4 L, MCHC 28.9 L, RDW 16.2 H, Plt Count 128 L, MPV 10.0, Neut # (Auto) 6.7 H, Lymph # (Auto) 1.7, Bryan # (Auto) 0.9, Eos # (Auto) 0.2, Baso # (Auto) 0.1, Absolute Nucleated RBC 0.00, Nucleated RBC % 0.0 - Diagnostic Imaging Results Diagnostic Imaging Results: positive: Final report reviewed, Read independently Diagnostic Imaging Results Comments: CT abd/pel without contrast: mild proctitis, no free air, no pelvic/perirectal abscess, small amount of free fluid around right lobe of liver. Notably large volume stool within the rectum - Diagnosis Diagnosis: 1. Fecal impaction. 2. Proctitis. 3. Anemia. 4. Sacral decubitus ulcer - Consultation Note Consultation Note: 78yoM with multiple significant comorbidities, admitted with acute onset (3d) rectal pain and CT suggestive of proctitis. Given stool volume within rectum on CT, suspect that fecal impaction and partial rectal obstruction is the underlying etiology of inflammation of the rectum. Was able to disimpact a large volume of stool at beside via LISANDRA/manual disimpaction. - recommend continue with tap water enemas as well as PO bowel regimen - OK for clear liquid diet - continue with empiric abx for now Chronic anemia and admitted at hgb of 7. Could have some mild rectal mucosal bleeding from the inflammation vs a early developing stercoral ulcer, given tracel amount of blood on surface of one stool ball during disimpaction, but no evidence of large volume rectal bleed. Patient not fit for any procedures under anesthesia. - transfuse PRN per primary team Chronic stage 1 large sacral decubitus ulcer - offload as possible - recommend wound care referral - optimize protein / nutritional status - recommend nutrition consult Susan Tulk DO FACS General Surgeon, [place]
[2023-12-16] MEDS ORDERED: ACYCLOVIR INJ 500 MG in SODIUM CHLORIDE 0.9% 250 ML IV SCH (22:00)
[2023-12-16] MEDS ORDERED: SODIUM CHLORIDE 0.9% 250 ML IV ONE (22:08)
[2023-12-16] MEDS: MELATONIN 3 MG TABLET PO SCH (22:17)
[2023-12-16] MEDS: TAMSULOSIN 0.4 MG CAPSULE PO SCH (22:17)
[2023-12-16] MEDS: carvediloL 3.125 MG TABLET PO SCH (22:17)
[2023-12-16] MEDS: HEPARIN 5,000 UNIT/ML VIAL SUBQ SCH (22:18)
[2023-12-16] MEDS: GABAPENTIN 300 MG CAPSULE PO SCH (22:18)
[2023-12-16] MEDS: INSULIN GLARGINE-YFGN 300 UNIT/3 ML PEN SUBQ SCH (22:20)
[2023-12-17] MEDS: ZINC OXIDE 20% OINT 30 GM TUBE TOP PRN (00:25)
[2023-12-17] MEDS: ACYCLOVIR INJ 500 MG in SODIUM CHLORIDE 0.9% 250 ML IV SCH (00:40)
[2023-12-17 06:01] LABS: BASOPHILS % (AUTO) 0.4 %; EOSINOPHILS # (AUTO) 0.1 10^3/uL (0.0-0.7); HCT - HEMATOCRIT 22.6 % (42.0-52.0); LYMPHOCYTES # (AUTO) 1.4 10^3/uL (1.5-3.5); LYMPHOCYTES % (AUTO) 20.3 %; MEAN CORPUSCULAR HEMOGLOBIN 23.8 pg (27.0-31.0); MEAN CORPUSCULAR HGB CONC 30.1 g/dL (32.0-36.0); MEAN PLATELET VOLUME 9.7 fL (7.4-11.4); MONOCYTES # (AUTO) 0.6 10^3/uL (0.0-1.0); MONOCYTES % (AUTO) 8.8 %; NEUTROPHILS # (AUTO) 4.6 10^3/uL (1.5-6.6); PLT - PLATELET COUNT 98 10^3/uL (130-450); RED BLOOD COUNT 2.86 10^6/uL (4.70-6.10); RED CELL DISTRIBUTION WIDTH 16.7 % (12.0-15.0); WHITE BLOOD COUNT 6.9 x10^3/uL (4.8-10.8)
[2023-12-17 06:02] LABS: HGB - HEMOGLOBIN 6.8 g/dL (14.0-18.0)
[2023-12-17] MEDS: PIPERACILLIN/TAZOBACTAM 2.25 GM in SODIUM CHLORIDE 0.9% MINIBAG 100 ML IV SCH (06:02)
[2023-12-17 06:06] LABS: CALCIUM 8.1 mg/dL (8.5-10.3); CREATININE 2.2 mg/dL (0.6-1.3); POTASSIUM 3.3 mmol/L (3.5-4.5)
[2023-12-17] MEDS: PANTOPRAZOLE 40 MG TABLET PO SCH (06:19)
[2023-12-17] MEDS ORDERED: polyethylene glycoL 3350 17 GM PACKET PO PRN (07:32)
[2023-12-17 07:49] LABS: BASOPHILS % (AUTO) 0.5 %; EOSINOPHILS # (AUTO) 0.2 10^3/uL (0.0-0.7); EOSINOPHILS % (AUTO) 2.6 %; HCT - HEMATOCRIT 23.3 % (42.0-52.0); HGB - HEMOGLOBIN 7.1 g/dL (14.0-18.0); LYMPHOCYTES # (AUTO) 1.5 10^3/uL (1.5-3.5); LYMPHOCYTES % (AUTO) 19.2 %; MEAN CORPUSCULAR HEMOGLOBIN 23.8 pg (27.0-31.0); MEAN CORPUSCULAR HGB CONC 30.5 g/dL (32.0-36.0); MEAN CORPUSCULAR VOLUME 78.2 fL (80.0-94.0); MEAN PLATELET VOLUME 9.5 fL (7.4-11.4); MONOCYTES # (AUTO) 0.7 10^3/uL (0.0-1.0); MONOCYTES % (AUTO) 8.3 %; NEUTROPHILS # (AUTO) 5.4 10^3/uL (1.5-6.6); NEUTROPHILS % (AUTO) 68.1 %; PLT - PLATELET COUNT 109 10^3/uL (130-450); RED BLOOD COUNT 2.98 10^6/uL (4.70-6.10); RED CELL DISTRIBUTION WIDTH 16.6 % (12.0-15.0); WHITE BLOOD COUNT 7.9 x10^3/uL (4.8-10.8)
[2023-12-17] MEDS ORDERED: SODIUM CHLORIDE 0.9% 250 ML IV ONE (08:05)
[2023-12-17 08:07] LABS: CALCIUM 8.2 mg/dL (8.5-10.3); CREATININE 2.2 mg/dL (0.6-1.3); POTASSIUM 3.4 mmol/L (3.5-4.5)
[2023-12-17] MEDS: amLODIPine 5 MG TABLET PO SCH (08:12)
[2023-12-17] MEDS: guaiFENesin 600 MG TABLET PO SCH (08:12)
[2023-12-17] MEDS: FUROSEMIDE 40 MG TABLET PO SCH (08:13)
[2023-12-17] MEDS: DOCUSATE SODIUM 100 MG CAPSULE PO SCH (08:13)
[2023-12-17] MEDS: LORATADINE 10 MG TABLET PO SCH (08:14)
[2023-12-17] MEDS: MAGNESIUM HYDROXIDE 2,400 MG/30 ML UDC PO PRN (08:28)
[2023-12-17] MEDS: FLUTICASONE NASAL SPRAY NAS SCH (08:29)
[2023-12-17] MEDS: POTASSIUM CHLORIDE 20 MEQ TABLET PO ONE (08:29)
[2023-12-17] MEDS ORDERED: ENOXAPARIN 40 MG/0.4 ML SYRINGE SUBQ SCH (09:00)
--- NOTE | 2023-12-17 09:49 | PROVIDER PROGRESS NOTE ---
Subjective - General Admit Date: 12/16/23 - Other Other Information/Narrative: Enemas were held overnight. This AM patient endorses intermittent rectal pain that alternates with decubitus ulcer pain. HDN, AF. Denies abdominal pain. Objective - Patient Data Reviewed Vital Signs: Yes Vital Signs: Vital Signs x48h Temp Pulse Resp BP Pulse Ox O2 Flow Rate 12/17/23 07:28 36.4 C L 68 20 108/72 93 2 Weight: Weight 12/15/23 12/16/23 12/17/23 23:59 23:59 23:59 Weight (kg) 104.5 kg Intake & Output: Intake and Output Totals x24h 12/15/23 12/16/23 12/17/23 23:59 23:59 23:59 Intake Total 3126.667 1890.000 Output Total 1525 525 Balance 9666.922 3256.000 - Lab Results Lab Results: 12/17/23 07:42 12/17/23 07:42 Other Lab Results: Lab Results x24hrs 12/17/23 12/17/23 12/17/23 Range/Units 07:42 07:42 07:27 WBC 7.9 (4.8-10.8) x10^3/uL RBC 2.98 L (4.70-6.10) 10^6/uL Hgb 7.1 L (14.0-18.0) g/dL Hct 23.3 L (42.0-52.0) % MCV 78.2 L (80.0-94.0) fL MCH 23.8 L (27.0-31.0) pg MCHC 30.5 L (32.0-36.0) g/dL RDW 16.6 H (12.0-15.0) % Plt Count 109 L (130-450) 10^3/uL MPV 9.5 (7.4-11.4) fL Reticulocyte % (Auto) (0.5-2.3) % Neut # (Auto) 5.4 (1.5-6.6) 10^3/uL Lymph # (Auto) 1.5 (1.5-3.5) 10^3/uL Bailey # (Auto) 0.7 (0.0-1.0) 10^3/uL Eos # (Auto) 0.2 (0.0-0.7) 10^3/uL Baso # (Auto) 0.0 (0.0-0.1) 10^3/uL Absolute Nucleated RBC 0.00 x10^3/uL Nucleated RBC % 0.0 /100WBC Absolute Retic (0.020-0.110) 10^6/uL Sodium 134 L (135-145) mmol/L Potassium 3.4 L (3.5-4.5) mmol/L Chloride 111 (101-111) mmol/L Carbon Dioxide 15 L (21-32) mmol/L Anion Gap 8.0 (6-13) BUN 87 H* (6-20) mg/dL Creatinine 2.2 H (0.6-1.3) mg/dL Estimated GFR (MDRD) 29 L (>89) Glucose 82 (74-104) mg/dL POC Whole Bld Glucose 83 (70 - 100) mg/dL Calcium 8.2 L (8.5-10.3) mg/dL Iron (50-212) ug/dL TIBC (250-450) ug/dL % Saturation Transferrin (203-362) mg/dL Vitamin B12 (180-914) pg/mL Blood Type Antibody Screen Crossmatch IS Only 12/17/23 12/17/23 12/16/23 Range/Units 05:00 05:00 20:13 WBC 6.9 (4.8-10.8) x10^3/uL RBC 2.86 L (4.70-6.10) 10^6/uL Hgb 6.8 L* (14.0-18.0) g/dL Hct 22.6 L (42.0-52.0) % MCV 79.0 L (80.0-94.0) fL MCH 23.8 L (27.0-31.0) pg MCHC 30.1 L (32.0-36.0) g/dL RDW 16.7 H (12.0-15.0) % Plt Count 98 L (130-450) 10^3/uL MPV 9.7 (7.4-11.4) fL Reticulocyte % (Auto) (0.5-2.3) % Neut # (Auto) 4.6 (1.5-6.6) 10^3/uL Lymph # (Auto) 1.4 L (1.5-3.5) 10^3/uL Bailey # (Auto) 0.6 (0.0-1.0) 10^3/uL Eos # (Auto) 0.1 (0.0-0.7) 10^3/uL Baso # (Auto) 0.0 (0.0-0.1) 10^3/uL Absolute Nucleated RBC 0.00 x10^3/uL Nucleated RBC % 0.0 /100WBC Absolute Retic (0.020-0.110) 10^6/uL Sodium 135 (135-145) mmol/L Potassium 3.3 L (3.5-4.5) mmol/L Chloride 111 (101-111) mmol/L Carbon Dioxide 15 L (21-32) mmol/L Anion Gap 9.0 (6-13) BUN 89 H* (6-20) mg/dL Creatinine 2.2 H (0.6-1.3) mg/dL Estimated GFR (MDRD) 29 L (>89) Glucose 93 (74-104) mg/dL POC Whole Bld Glucose 188 H (70 - 100) mg/dL Calcium 8.1 L (8.5-10.3) mg/dL Iron (50-212) ug/dL TIBC (250-450) ug/dL % Saturation Transferrin (203-362) mg/dL Vitamin B12 (180-914) pg/mL Blood Type Antibody Screen Crossmatch IS Only 12/16/23 12/16/23 12/16/23 Range/Units 18:56 15:29 15:00 WBC (4.8-10.8) x10^3/uL RBC (4.70-6.10) 10^6/uL Hgb 6.2 L* (14.0-18.0) g/dL Hct 21.2 L (42.0-52.0) % MCV (80.0-94.0) fL MCH (27.0-31.0) pg MCHC (32.0-36.0) g/dL RDW (12.0-15.0) % Plt Count (130-450) 10^3/uL MPV (7.4-11.4) fL Reticulocyte % (Auto) (0.5-2.3) % Neut # (Auto) (1.5-6.6) 10^3/uL Lymph # (Auto) (1.5-3.5) 10^3/uL Bailey # (Auto) (0.0-1.0) 10^3/uL Eos # (Auto) (0.0-0.7) 10^3/uL Baso # (Auto) (0.0-0.1) 10^3/uL Absolute Nucleated RBC x10^3/uL Nucleated RBC % /100WBC Absolute Retic (0.020-0.110) 10^6/uL Sodium (135-145) mmol/L Potassium (3.5-4.5) mmol/L Chloride (101-111) mmol/L Carbon Dioxide (21-32) mmol/L Anion Gap (6-13) BUN (6-20) mg/dL Creatinine (0.6-1.3) mg/dL Estimated GFR (MDRD) (>89) Glucose (74-104) mg/dL POC Whole Bld Glucose 111 H (70 - 100) mg/dL Calcium (8.5-10.3) mg/dL Iron < 10 L (50-212) ug/dL TIBC 259 (250-450) ug/dL % Saturation TNP Transferrin 185 L (203-362) mg/dL Vitamin B12 767 (180-914) pg/mL Blood Type Antibody Screen Crossmatch IS Only 12/16/23 12/16/23 Range/Units 15:00 09:46 WBC (4.8-10.8) x10^3/uL RBC 3.11 L (4.70-6.10) 10^6/uL Hgb (14.0-18.0) g/dL Hct (42.0-52.0) % MCV (80.0-94.0) fL MCH (27.0-31.0) pg MCHC (32.0-36.0) g/dL RDW (12.0-15.0) % Plt Count (130-450) 10^3/uL MPV (7.4-11.4) fL Reticulocyte % (Auto) 2.19 (0.5-2.3) % Neut # (Auto) (1.5-6.6) 10^3/uL Lymph # (Auto) (1.5-3.5) 10^3/uL Bailey # (Auto) (0.0-1.0) 10^3/uL Eos # (Auto) (0.0-0.7) 10^3/uL Baso # (Auto) (0.0-0.1) 10^3/uL Absolute Nucleated RBC x10^3/uL Nucleated RBC % /100WBC Absolute Retic 0.068 (0.020-0.110) 10^6/uL Sodium (135-145) mmol/L Potassium (3.5-4.5) mmol/L Chloride (101-111) mmol/L Carbon Dioxide (21-32) mmol/L Anion Gap (6-13) BUN (6-20) mg/dL Creatinine (0.6-1.3) mg/dL Estimated GFR (MDRD) (>89) Glucose (74-104) mg/dL POC Whole Bld Glucose (70 - 100) mg/dL Calcium (8.5-10.3) mg/dL Iron (50-212) ug/dL TIBC (250-450) ug/dL % Saturation Transferrin (203-362) mg/dL Vitamin B12 (180-914) pg/mL Blood Type A POSITIVE Antibody Screen NEGATIVE Crossmatch IS Only See Detail - Current Medications Current Medications: Current Medications Generic Name Dose Route Start Last Admin Trade Name Freq PRN Reason Stop Dose Admin Acetaminophen 650 mg 12/16/23 10:47 12/17/23 03:55 Acetaminophen 325 Mg Tablet PO 650 mg Q4HR PRN Administration Pain 1 to 4, or Fever Amlodipine Besylate 5 mg 12/17/23 09:00 12/17/23 08:12 Amlodipine 5 Mg Tablet PO 5 mg DAILY CATIE Administration Carvedilol 6.25 mg 12/16/23 21:00 12/17/23 08:13 Carvedilol 3.125 Mg Tablet PO 6.25 mg BID CATIE Administration Docusate Sodium 100 mg 12/17/23 09:00 12/17/23 08:13 Docusate Sodium 100 Mg Capsule PO 100 mg DAILY CATIE Administration Fluticasone Propionate 1 sprays 12/17/23 09:00 12/17/23 08:29 Fluticasone Nasal [place] MAN 1 spr DAILY CATIE Administration Furosemide 40 mg 12/17/23 09:00 12/17/23 08:13 Furosemide 40 Mg Tablet PO 40 mg DAILY CATIE Administration Gabapentin 300 mg 12/16/23 22:00 12/17/23 06:03 Gabapentin 300 Mg Capsule PO 300 mg TID CATIE Administration Guaifenesin 600 mg 12/17/23 09:00 12/17/23 08:12 Guaifenesin 600 Mg Tablet PO 600 mg BID CATIE Administration Heparin Sodium (Porcine) 5,000 unit 12/16/23 21:00 12/17/23 08:18 Heparin 5,000 Unit/Ml Vial SUBQ 5,000 unit BID CATIE Administration Lactated Ringer's 1,000 mls @ 100 mls/hr 12/16/23 11:00 12/17/23 06:02 Lr IV 0 mls/hr .Q10H CATIE Infusion Acyclovir 500 mg/ Sodium 260 mls @ 250 mls/hr 12/17/23 01:00 12/17/23 01:43 Chloride IV Infused Q8H CATIE Infusion Piperacillin Sod/Tazobactam 100 mls @ 200 mls/hr 12/17/23 06:00 12/17/23 06:02 Sod 2.25 gm/ Sodium Chloride IV 200 mls/hr Q6H CATIE Administration Insulin Glargine-yfgn 30 unit 12/16/23 21:00 12/17/23 08:18 Insulin Glargine-Yfgn 300 Unit/3 Ml Pen SUBQ 30 unit BID CATIE Administration Loratadine 20 mg 12/17/23 09:00 12/17/23 08:14 Loratadine 10 Mg Tablet PO 20 mg DAILY CATIE Administration Magnesium Hydroxide 2,400 mg 12/17/23 07:36 12/17/23 08:28 Magnesium Hydroxide 2,400 Mg/30 Ml Udc PO 12/17/23 23:59 2,400 mg ONCE PRN Administration Constipation Melatonin 3 mg 12/16/23 21:00 12/16/23 22:17 Melatonin 3 Mg Tablet PO 3 mg HS CATIE Administration Multi-Ingredient Ointment 1 applic 12/16/23 12:59 12/17/23 06:03 Zinc Oxide 20% Oint 30 Gm Tube TOP 1 applic PRN PRN Administration Skin Care Pantoprazole Sodium 40 mg 12/17/23 07:00 12/17/23 06:19 Pantoprazole 40 Mg Tablet PO 40 mg QDAC CATIE Administration Sodium Biphosphate/Sodium Phosphate 133 ml 12/16/23 17:00 12/17/23 02:44 Saline Enema 133 Ml Bottle RC Not Given Q8H CATIE Sodium Chloride 10 ml 12/16/23 17:00 12/16/23 23:53 Sodium Chloride Flush 0.9% 10 Ml Syringe IVP 10 ml 0100,0900,1700 CATIE Administration Tamsulosin HCl 0.8 mg 12/16/23 21:00 12/16/23 22:17 Tamsulosin 0.4 Mg Capsule PO 0.8 mg HS CATIE Administration - Physical Exam General Appearance: positive: No acute distress, Alert Respiratory: positive: No respiratory distress Cardiovascular: positive: Regular rate & rhythm Abdomen: positive: Non-tender. negative: No distention ABX Reporting Has patient been on IV antibiotics over the past 48 hours?: Yes Impression/Plan - Problem List Problem List: 78yoM with multiple significant comorbidities, admitted with acute onset (3d) rectal pain and CT suggestive of proctitis. Given stool volume within rectum on CT, suspect that fecal impaction and partial rectal obstruction is the underlying etiology of inflammation of the rectum. Was able to disimpact a large volume of stool at beside via LISANDRA/manual disimpaction on day of admission. - continue with tap water enemas as well as PO bowel regimen - OK for diet as tolerated - continue with empiric abx for now Chronic anemia and admitted at hgb of 7. Could have some mild rectal mucosal bleeding from the inflammation vs a early developing stercoral ulcer, given trace amount of blood on surface of one stool ball during disimpaction, but no evidence of large volume rectal bleed. Patient not fit for any procedures under anesthesia. - transfuse PRN per primary team Chronic stage 1 large sacral decubitus ulcer - offload as possible - recommend wound care referral - optimize protein / nutritional status - recommend nutrition consult Susan Choe DO, FACS General Surgeon, [email or web address]
[2023-12-17] MEDS: traMADol 50 MG TABLET PO PRN (10:08)
[2023-12-17 10:37] LABS: ESTIMATED AVERAGE GLUCOSE 163 mg/dL (70-100); HEMOGLOBIN A1c% 7.3 % (4.27-6.07)
[2023-12-17] MEDS: AMMONIUM LACTATE 227 GM BOTTLE TOP SCH (10:38)
--- NOTE | 2023-12-17 13:45 | PROVIDER PROGRESS NOTE ---
Subjective - Prog Note Date Prog Note Date: 12/17/23 - Subjective Pt reports feeling: Improved Objective - Vital Signs/Intake & Output Vital Signs: Vital Signs x48h Temp Pulse Resp BP Pulse Ox O2 Flow Rate 12/17/23 07:28 36.4 C L 68 20 108/72 93 2 12/17/23 07:00 2 Intake & Output: Intake & Output 12/14/23 12/15/23 12/16/23 12/17/23 23:59 23:59 23:59 23:59 Intake Total 3126.667 1990.000 Output Total 1525 525 Balance 1887.797 7802.000 - Objective General Appearance: positive: No acute distress, Other ( chronically ill- appearing) Eyes Bilateral: positive: Normal inspection Neck: positive: Nml inspection Respiratory: positive: Chest non-tender, No respiratory distress Cardiovascular: positive: Regular rate & rhythm Abdomen: positive: Tenderness ( improved) Skin: positive: Dry, Skin rash ( stage I sacral, vesicular rash on the right hip), Other ( abrasion, discoloration on the vera) Extremities: positive: Other ( right BKA) - Lab Results Fish Bones: 12/17/23 07:42 12/17/23 07:42 Other Labs: Lab Results x24hrs 12/17/23 12/17/23 12/17/23 Range/Units 11:20 07:42 07:42 WBC 7.9 (4.8-10.8) x10^3/uL RBC 2.98 L (4.70-6.10) 10^6/uL Hgb 7.1 L (14.0-18.0) g/dL Hct 23.3 L (42.0-52.0) % MCV 78.2 L (80.0-94.0) fL MCH 23.8 L (27.0-31.0) pg MCHC 30.5 L (32.0-36.0) g/dL RDW 16.6 H (12.0-15.0) % Plt Count 109 L (130-450) 10^3/uL MPV 9.5 (7.4-11.4) fL Reticulocyte % (Auto) (0.5-2.3) % Neut # (Auto) 5.4 (1.5-6.6) 10^3/uL Lymph # (Auto) 1.5 (1.5-3.5) 10^3/uL Aiken # (Auto) 0.7 (0.0-1.0) 10^3/uL Eos # (Auto) 0.2 (0.0-0.7) 10^3/uL Baso # (Auto) 0.0 (0.0-0.1) 10^3/uL Absolute Nucleated RBC 0.00 x10^3/uL Nucleated RBC % 0.0 /100WBC Absolute Retic (0.020-0.110) 10^6/uL Sodium 134 L (135-145) mmol/L Potassium 3.4 L (3.5-4.5) mmol/L Chloride 111 (101-111) mmol/L Carbon Dioxide 15 L (21-32) mmol/L Anion Gap 8.0 (6-13) BUN 87 H* (6-20) mg/dL Creatinine 2.2 H (0.6-1.3) mg/dL Estimated GFR (MDRD) 29 L (>89) Glucose 82 (74-104) mg/dL POC Whole Bld Glucose 149 H (70 - 100) mg/dL Estimat Average Glucose (70-100) mg/dL Hemoglobin A1c % (4.27-6.07) % Calcium 8.2 L (8.5-10.3) mg/dL Iron (50-212) ug/dL TIBC (250-450) ug/dL % Saturation Transferrin (203-362) mg/dL Vitamin B12 (180-914) pg/mL Blood Type Antibody Screen Crossmatch IS Only 12/17/23 12/17/23 12/17/23 Range/Units 07:27 05:00 05:00 WBC (4.8-10.8) x10^3/uL RBC (4.70-6.10) 10^6/uL Hgb (14.0-18.0) g/dL Hct (42.0-52.0) % MCV (80.0-94.0) fL MCH (27.0-31.0) pg MCHC (32.0-36.0) g/dL RDW (12.0-15.0) % Plt Count (130-450) 10^3/uL MPV (7.4-11.4) fL Reticulocyte % (Auto) (0.5-2.3) % Neut # (Auto) (1.5-6.6) 10^3/uL Lymph # (Auto) (1.5-3.5) 10^3/uL Aiken # (Auto) (0.0-1.0) 10^3/uL Eos # (Auto) (0.0-0.7) 10^3/uL Baso # (Auto) (0.0-0.1) 10^3/uL Absolute Nucleated RBC x10^3/uL Nucleated RBC % /100WBC Absolute Retic (0.020-0.110) 10^6/uL Sodium 135 (135-145) mmol/L Potassium 3.3 L (3.5-4.5) mmol/L Chloride 111 (101-111) mmol/L Carbon Dioxide 15 L (21-32) mmol/L Anion Gap 9.0 (6-13) BUN 89 H* (6-20) mg/dL Creatinine 2.2 H (0.6-1.3) mg/dL Estimated GFR (MDRD) 29 L (>89) Glucose 93 (74-104) mg/dL POC Whole Bld Glucose 83 (70 - 100) mg/dL Estimat Average Glucose 163 H (70-100) mg/dL Hemoglobin A1c % 7.3 H (4.27-6.07) % Calcium 8.1 L (8.5-10.3) mg/dL Iron (50-212) ug/dL TIBC (250-450) ug/dL % Saturation Transferrin (203-362) mg/dL Vitamin B12 (180-914) pg/mL Blood Type Antibody Screen Crossmatch IS Only 12/17/23 12/16/23 12/16/23 Range/Units 05:00 20:13 18:56 WBC 6.9 (4.8-10.8) x10^3/uL RBC 2.86 L (4.70-6.10) 10^6/uL Hgb 6.8 L* 6.2 L* (14.0-18.0) g/dL Hct 22.6 L 21.2 L (42.0-52.0) % MCV 79.0 L (80.0-94.0) fL MCH 23.8 L (27.0-31.0) pg MCHC 30.1 L (32.0-36.0) g/dL RDW 16.7 H (12.0-15.0) % Plt Count 98 L (130-450) 10^3/uL MPV 9.7 (7.4-11.4) fL Reticulocyte % (Auto) (0.5-2.3) % Neut # (Auto) 4.6 (1.5-6.6) 10^3/uL Lymph # (Auto) 1.4 L (1.5-3.5) 10^3/uL Aiken # (Auto) 0.6 (0.0-1.0) 10^3/uL Eos # (Auto) 0.1 (0.0-0.7) 10^3/uL Baso # (Auto) 0.0 (0.0-0.1) 10^3/uL Absolute Nucleated RBC 0.00 x10^3/uL Nucleated RBC % 0.0 /100WBC Absolute Retic (0.020-0.110) 10^6/uL Sodium (135-145) mmol/L Potassium (3.5-4.5) mmol/L Chloride (101-111) mmol/L Carbon Dioxide (21-32) mmol/L Anion Gap (6-13) BUN (6-20) mg/dL Creatinine (0.6-1.3) mg/dL Estimated GFR (MDRD) (>89) Glucose (74-104) mg/dL POC Whole Bld Glucose 188 H (70 - 100) mg/dL Estimat Average Glucose (70-100) mg/dL Hemoglobin A1c % (4.27-6.07) % Calcium (8.5-10.3) mg/dL Iron (50-212) ug/dL TIBC (250-450) ug/dL % Saturation Transferrin (203-362) mg/dL Vitamin B12 (180-914) pg/mL Blood Type Antibody Screen Crossmatch IS Only 12/16/23 12/16/23 12/16/23 Range/Units 15:29 15:00 15:00 WBC (4.8-10.8) x10^3/uL RBC 3.11 L (4.70-6.10) 10^6/uL Hgb (14.0-18.0) g/dL Hct (42.0-52.0) % MCV (80.0-94.0) fL MCH (27.0-31.0) pg MCHC (32.0-36.0) g/dL RDW (12.0-15.0) % Plt Count (130-450) 10^3/uL MPV (7.4-11.4) fL Reticulocyte % (Auto) 2.19 (0.5-2.3) % Neut # (Auto) (1.5-6.6) 10^3/uL Lymph # (Auto) (1.5-3.5) 10^3/uL Aiken # (Auto) (0.0-1.0) 10^3/uL Eos # (Auto) (0.0-0.7) 10^3/uL Baso # (Auto) (0.0-0.1) 10^3/uL Absolute Nucleated RBC x10^3/uL Nucleated RBC % /100WBC Absolute Retic 0.068 (0.020-0.110) 10^6/uL Sodium (135-145) mmol/L Potassium (3.5-4.5) mmol/L Chloride (101-111) mmol/L Carbon Dioxide (21-32) mmol/L Anion Gap (6-13) BUN (6-20) mg/dL Creatinine (0.6-1.3) mg/dL Estimated GFR (MDRD) (>89) Glucose (74-104) mg/dL POC Whole Bld Glucose 111 H (70 - 100) mg/dL Estimat Average Glucose (70-100) mg/dL Hemoglobin A1c % (4.27-6.07) % Calcium (8.5-10.3) mg/dL Iron < 10 L (50-212) ug/dL TIBC 259 (250-450) ug/dL % Saturation TNP Transferrin 185 L (203-362) mg/dL Vitamin B12 767 (180-914) pg/mL Blood Type Antibody Screen Crossmatch IS Only 12/16/23 Range/Units 09:46 WBC (4.8-10.8) x10^3/uL RBC (4.70-6.10) 10^6/uL Hgb (14.0-18.0) g/dL Hct (42.0-52.0) % MCV (80.0-94.0) fL MCH (27.0-31.0) pg MCHC (32.0-36.0) g/dL RDW (12.0-15.0) % Plt Count (130-450) 10^3/uL MPV (7.4-11.4) fL Reticulocyte % (Auto) (0.5-2.3) % Neut # (Auto) (1.5-6.6) 10^3/uL Lymph # (Auto) (1.5-3.5) 10^3/uL Aiken # (Auto) (0.0-1.0) 10^3/uL Eos # (Auto) (0.0-0.7) 10^3/uL Baso # (Auto) (0.0-0.1) 10^3/uL Absolute Nucleated RBC x10^3/uL Nucleated RBC % /100WBC Absolute Retic (0.020-0.110) 10^6/uL Sodium (135-145) mmol/L Potassium (3.5-4.5) mmol/L Chloride (101-111) mmol/L Carbon Dioxide (21-32) mmol/L Anion Gap (6-13) BUN (6-20) mg/dL Creatinine (0.6-1.3) mg/dL Estimated GFR (MDRD) (>89) Glucose (74-104) mg/dL POC Whole Bld Glucose (70 - 100) mg/dL Estimat Average Glucose (70-100) mg/dL Hemoglobin A1c % (4.27-6.07) % Calcium (8.5-10.3) mg/dL Iron (50-212) ug/dL TIBC (250-450) ug/dL % Saturation Transferrin (203-362) mg/dL Vitamin B12 (180-914) pg/mL Blood Type A POSITIVE Antibody Screen NEGATIVE Crossmatch IS Only See Detail Sepsis Event Note (H) - Evaluation Current Stage of Sepsis: Ruled out Assessment/Plan - Problem List (1) Proctitis Impression: Conclusion/Plan: Surgery on board Cleared for regular diet per surgery IVF Zosyn Aggressive bowel regimen (2) Acute on chronic kidney failure Conclusion/Plan: IVF BMP in a.m. Likely prerenal secondary to dehydration Renally dose Zosyn Qualifiers: Acute renal failure type: unspecified Chronic kidney disease stage: unspecified stage Qualified Code(s): N17.9 - Acute kidney failure, unspecified; N18.9 - Chronic kidney disease, unspecified (3) Chronic anemia Conclusion/Plan: Replaced iron 1 unit PRBCs was given overnight (4) Sacral pressure sore Conclusion/Plan: supportive care Offload sacrum Qualifiers: Pressure injury stage: stage 1 Qualified Code(s): L89.151 - Pressure ulcer of sacral region, stage 1 Offload sacrum (5) Rash on right hip with concern for shingles Acyclovir Contact precautions (6) Hx of coronary artery disease Conclusion/Plan: echo 12/04/2022 shows EF 55 to 60% (7) Type 2 diabetes mellitus Conclusion/Plan: continue home regimen ACHS glucose check Qualifiers: (2) Acute on chronic kidney failure Qualifiers: Acute renal failure type: unspecified Chronic kidney disease stage: unspec ified stage Qualified Code(s): N17.9 - Acute kidney failure, unspecified; N18.9 - Chronic kidney disease, unspecified (4) Sacral pressure sore Qualifiers: Pressure injury stage: stage 1 Qualified Code(s): L89.151 - Pressure ulcer of sacral region, stage 1 (6) Type 2 diabetes mellitus Qualifiers:
[2023-12-17] MEDS: HYDROmorphone 0.5 MG/0.5 ML SYRINGE IVP ONE (14:27)
[2023-12-17] MEDS: MULTIVITAMIN W/MINERALS TABLET PO SCH (16:58)
[2023-12-17] MEDS ORDERED: COD LIVER OIL/ZINC OXIDE 113 GM TUBE TOP PRN (17:39)
[2023-12-17] MEDS: SPIRONOLACTONE 25 MG TABLET PO SCH (21:07)
[2023-12-18] MEDS ORDERED: SODIUM CHLORIDE 0.9% MINIBAG 100 ML IV ONE ×4 (01:10→08:24)
[2023-12-18] MEDS ORDERED: SODIUM CHLORIDE 0.9% 250 ML IV ONE ×2 (01:10→08:21)
[2023-12-18] MEDS: MORPHINE 2 MG/ML CARPUJECT IVP PRN (03:27)
[2023-12-18] MEDS: PIPERACILLIN/TAZOBACTAM 2.25 GM in SODIUM CHLORIDE 0.9% MINIBAG 100 ML IV SCH (03:32)
[2023-12-18 06:05] LABS: BASOPHILS % (AUTO) 0.5 %; EOSINOPHILS # (AUTO) 0.2 10^3/uL (0.0-0.7); EOSINOPHILS % (AUTO) 2.7 %; HCT - HEMATOCRIT 24.1 % (42.0-52.0); LYMPHOCYTES # (AUTO) 1.4 10^3/uL (1.5-3.5); LYMPHOCYTES % (AUTO) 17.2 %; MEAN CORPUSCULAR HEMOGLOBIN 23.1 pg (27.0-31.0); MEAN CORPUSCULAR VOLUME 79.5 fL (80.0-94.0); MEAN PLATELET VOLUME 9.9 fL (7.4-11.4); MONOCYTES # (AUTO) 0.6 10^3/uL (0.0-1.0); MONOCYTES % (AUTO) 7.9 %; NEUTROPHILS # (AUTO) 5.6 10^3/uL (1.5-6.6); NEUTROPHILS % (AUTO) 69.8 %; PLT - PLATELET COUNT 90 10^3/uL (130-450); RED BLOOD COUNT 3.03 10^6/uL (4.70-6.10); RED CELL DISTRIBUTION WIDTH 16.9 % (12.0-15.0); WHITE BLOOD COUNT 8.1 x10^3/uL (4.8-10.8)
[2023-12-18 06:08] LABS: CREATININE 2.2 mg/dL (0.6-1.3); POTASSIUM 3.8 mmol/L (3.5-4.5)
[2023-12-18] MEDS: CALAMINE/ZINC OXIDE 177 ML BOTTLE TOP PRN (06:49)
--- NOTE | 2023-12-18 08:55 | PROVIDER PROGRESS NOTE ---
Subjective - Prog Note Date Prog Note Date: 12/18/23 Prog Note Time: 08:50 - Subjective Pt reports feeling: No change Subjective: Mr Zavala presented to the ED with rectal pain on 12/15. He is medically fragile with deconditioning, bedbound status, and chronic aragon. He has a large sacral pressure ulcer, stage I, unchanged from prior. He complained of rectal pain, not sacral pain. Physical examination of the rectum was normal. Workup demonstrated fairly stable but severe anemia. He has some RAFAEL on CKD, creatinine was 2.4, use usually 1.8-2.0 and there is a prerenal pattern to it. CT which demonstrated evidence of proctitis. Dr. Choe, our on-call surgeon, was consulted at approximately 9:40 AM who agrees with admission to medicine, bowel rest, enemas, and IV antibiotics. She does not feel there is an acute surgical issue which is good because previously he has been deemed too ill at baseline to have anesthesia at the small facility. Today, he is oriented to self only (baseline), speech difficult to understand an d sometimes garbled, eyes open to verbal and intermittently able to follow simple commands. He has no gross focal neuro deficits, unable to complete a more focussed neuro due to mentation. He states he can't move but is observed to be moving all extremities. He asked for pain medications but denied pain when asked. He has had increasing O2 needs, with O2 now at 90-92% on 4 lpm, was at 88% on 2 lpm earlier this morning. Current Medications - Current Medications Current Medications: Active Medications Generic Name Dose Route Start Last Admin Trade Name [place] PRN Reason Stop Dose Admin Acetaminophen 650 mg 12/16/23 10:47 12/17/23 22:27 Acetaminophen 325 Mg Tablet PO 650 mg Q4HR PRN Administration Pain 1 to 4, or Fever Albuterol 2.5 mg 12/16/23 15:03 Albuterol Neb 2.5 Mg/3 Ml INH RTQ4H PRN Shortness of Air/Wheezing Calamine 1 applic 12/17/23 17:39 12/18/23 06:49 Calamine/Zinc Oxide 177 Ml Bottle TOP 1 applic PRN PRN Administration SKIN CARE Carvedilol 6.25 mg 12/16/23 21:00 12/18/23 08:46 Carvedilol 3.125 Mg Tablet PO 6.25 mg BID CATIE Administration Diclofenac Sodium 1 gm 12/16/23 14:42 Diclofenac Sodium 1% Gel 50 Gm Tube TOP Q8HR PRN PAIN 1-4 Docusate Sodium 100 mg 12/17/23 09:00 12/18/23 08:46 Docusate Sodium 100 Mg Capsule PO 100 mg DAILY CATIE Administration Fluticasone Propionate 1 sprays 12/17/23 09:00 12/18/23 09:00 Fluticasone Nasal Emerado MAN 1 spr DAILY CATIE Administration Furosemide 40 mg 12/17/23 09:00 12/18/23 08:46 Furosemide 40 Mg Tablet PO 40 mg DAILY CATIE Administration Gabapentin 300 mg 12/16/23 22:00 12/18/23 06:37 Gabapentin 300 Mg Capsule PO 300 mg TID CATIE Administration Guaifenesin 600 mg 12/17/23 09:00 12/18/23 08:46 Guaifenesin 600 Mg Tablet PO 600 mg BID CATIE Administration Heparin Sodium (Porcine) 5,000 unit 12/16/23 21:00 12/18/23 09:00 Heparin 5,000 Unit/Ml Vial SUBQ 5,000 unit BID CATIE Administration Hydralazine HCl 10 mg 12/16/23 14:42 Hydralazine 10 Mg Tablet PO BID PRN NEEDED PER PROVIDER ORDERS Hydromorphone HCl 0.25 mg 12/18/23 08:53 Hydromorphone 0.5 Mg/0.5 Ml Syringe IVP Q2H PRN Severe Pain (Level 7-10) Acyclovir 500 mg/ Sodium 260 mls @ 250 mls/hr 12/17/23 01:00 12/18/23 02:35 Chloride IV Infused Q8H [facility] Infusion Piperacillin Sod/Tazobactam 100 mls @ 25 mls/hr 12/18/23 14:00 Sod 3.375 gm/ Sodium Chloride IV Q8H CATIE Insulin Glargine-yfgn 30 unit 12/16/23 21:00 12/18/23 09:01 Insulin Glargine-Yfgn 300 Unit/3 Ml Pen SUBQ 30 unit BID CATIE Administration Lactic Acid 1 gm 12/17/23 10:00 12/18/23 09:00 Ammonium Lactate 227 Gm Bottle TOP Not Given BID CATIE Loratadine 20 mg 12/17/23 09:00 12/18/23 08:46 Loratadine 10 Mg Tablet PO 20 mg DAILY CATIE Administration Melatonin 3 mg 12/16/23 21:00 12/17/23 21:07 Melatonin 3 Mg Tablet PO 3 mg HS CATIE Administration Multi-Ingredient Ointment 1 applic 12/16/23 12:59 12/18/23 06:49 Zinc Oxide 20% Oint 30 Gm Tube TOP 1 applic PRN PRN Administration Skin Care Multivitamins/Minerals 1 tab 12/17/23 17:00 12/18/23 08:46 Multivitamin W/Minerals Tablet PO 1 tab DAILYWM CATIE Administration Pantoprazole Sodium 40 mg 12/17/23 07:00 12/18/23 06:36 Pantoprazole 40 Mg Tablet PO 40 mg QDAC CATIE Administration Polyethylene Glycol 17 gm 12/17/23 07:32 Polyethylene Glycol 3350 17 Gm Packet PO DAILY PRN Bowel Protocol Senna 8.6 mg 12/16/23 14:42 Senna 8.6 Mg Tablet PO PRN PRN Constipation Sodium Biphosphate/Sodium Phosphate 133 ml 12/16/23 17:00 12/18/23 09:06 Saline Enema 133 Ml Bottle RC Not Given Q8H CATIE Sodium Chloride 10 ml 12/16/23 10:47 Sodium Chloride Flush 0.9% 10 Ml Syringe IVP PRN PRN NEEDED PER PROVIDER ORDERS Sodium Chloride 10 ml 12/16/23 17:00 12/18/23 09:06 Sodium Chloride Flush 0.9% 10 Ml Syringe IVP 10 ml 0100,0900,1700 CATIE Administration Spironolactone 25 mg 12/17/23 21:00 12/17/23 21:07 Spironolactone 25 Mg Tablet PO 25 mg HS CATIE Administration Tamsulosin HCl 0.8 mg 12/16/23 21:00 12/17/23 21:08 Tamsulosin 0.4 Mg Capsule PO 0.8 mg HS CATIE Administration Tramadol HCl 50 mg 12/17/23 07:14 12/18/23 03:24 Tramadol 50 Mg Tablet PO 50 mg Q4HR PRN Administration Moderate Pain (Level 4-6) Zinc Oxide 113 gm 12/17/23 17:39 Cod Liver Oil/Zinc Oxide 113 Gm Tube TOP PRN PRN Skin Care Furosemide 40 mg PO DAILY 12/30/17 Insulin Glargine [Lantus Solostar] 30 units SUBQ BID 11/27/22 Diclofenac Sodium [Arthritis Pain] 1 applic TOP Q8HR PRN 02/07/23 Ammonium Lactate 1 appful TOP BID 02/24/23 Melatonin 3 mg PO HS 02/24/23 Sennosides [Senna] 8.6 mg PO PRN PRN 02/24/23 Sodium Chloride [Saline Nasal Emerado] 1 - 2 spr NS Q6HR PRN 02/24/23 Spironolactone [Aldactone] 25 mg PO HS 02/24/23 Tamsulosin [Flomax] 0.8 mg PO HS 02/24/23 carvediloL [Coreg] 6.25 mg PO BID 02/24/23 Fluticasone [Flonase] 2 spray MAN DAILY 09/01/23 amLODIPine [Norvasc] 5 mg PO DAILY 09/01/23 hydrALAZINE [Apresoline] 10 mg PO BID PRN 09/01/23 Acetaminophen [Tylenol] 500 mg PO Q4HR PRN 09/16/23 Albuterol Sulfate [Proair Respiclick] 2 puffs IH Q4HR PRN 09/16/23 Gabapentin [Neurontin] 300 mg PO TID 12/16/23 Loratadine [All Day Allergy Relief] 20 mg PO DAILY 12/16/23 Miconazole Nitrate/Zinc Ox/Pet [Aqfgcdnbkf-Zwea-Clnaq 0.25-15%] 1 applic TOP BID 12/16/23 Omeprazole [PriLOSEC] 20 mg PO DAILY 12/16/23 guaiFENesin [Mucus ER] 1,200 mg PO BID 12/16/23 Objective - Vital Signs/Intake & Output Reviewed Vital Signs: Yes Vital Signs: Vital Signs x48h Temp Pulse Resp BP Pulse Ox O2 Flow Rate 12/18/23 07:50 36.8 C 77 24 128/62 92 2 Intake & Output: Intake & Output 12/15/23 12/16/23 12/17/23 12/18/23 23:59 23:59 23:59 23:59 Intake Total 3126.667 5189.000 1206.667 Output Total 1525 550 Balance 3176.060 1775.000 656.667 - Objective General Appearance: positive: Lethargic, Other (78 y/o male, rousable to voice, obses) Eyes Bilateral: positive: PERRL (Pupils 2mm and reactive low light) Respiratory: positive: Chest non-tender, No respiratory distress, Breath sounds nml. negative: Wheezes, Rales, Rhonchi Cardiovascular: positive: Regular rate & rhythm, No gallop, Systolic murmur (loudest at apex) Peripheral Pulses: 2+ Radial (R), 2+ Radial (L), 2+ Dorsalis pedis (L) Abdomen: positive: No organomegaly, Nml bowel sounds, Tenderness (diffuse). negative: No distention (Mildly distended, may be baseline) Skin: positive: No rash, Warm, Dry, Pallor, Decubitus (Sacrum) Extremities: positive: No pedal edema, Other (Right BKA) Neurologic/Psychiatric: positive: Motor nml (No gross neuro deficits), Disoriented to place, Disoriented to time, Slurred/abnml speech (garbled and difficult to understand speech), Other. negative: Oriented x3 (Oriented to self, eyes open to verbal, follows simple commands intermittently), Facial droop - Lab Results Fish Bones: 12/18/23 05:20 12/18/23 05:20 Other Labs: Lab Results x24hrs 12/18/23 12/18/23 12/18/23 Range/Units 07:44 05:20 05:20 WBC 8.1 (4.8-10.8) x10^3/uL RBC 3.03 L (4.70-6.10) 10^6/uL Hgb 7.0 L* (14.0-18.0) g/dL Hct 24.1 L (42.0-52.0) % MCV 79.5 L (80.0-94.0) fL MCH 23.1 L (27.0-31.0) pg MCHC 29.0 L (32.0-36.0) g/dL RDW 16.9 H (12.0-15.0) % Plt Count 90 L (130-450) 10^3/uL MPV 9.9 (7.4-11.4) fL Neut # (Auto) 5.6 (1.5-6.6) 10^3/uL Lymph # (Auto) 1.4 L (1.5-3.5) 10^3/uL [place] # (Auto) 0.6 (0.0-1.0) 10^3/uL Eos # (Auto) 0.2 (0.0-0.7) 10^3/uL Baso # (Auto) 0.0 (0.0-0.1) 10^3/uL Absolute Nucleated RBC 0.00 x10^3/uL Nucleated RBC % 0.0 /100WBC Sodium 130 L (135-145) mmol/L Potassium 3.8 (3.5-4.5) mmol/L Chloride 107 (101-111) mmol/L Carbon Dioxide 16 L (21-32) mmol/L Anion Gap 7.0 (6-13) BUN 75 H (6-20) mg/dL Creatinine 2.2 H (0.6-1.3) mg/dL Estimated GFR (MDRD) 29 L (>89) Glucose 92 (74-104) mg/dL POC Whole Bld Glucose 81 (70 - 100) mg/dL Estimat Average Glucose (70-100) mg/dL Hemoglobin A1c % (4.27-6.07) % Calcium 8.0 L (8.5-10.3) mg/dL Crossmatch IS Only 12/17/23 12/17/23 12/17/23 Range/Units 20:38 16:32 11:20 WBC (4.8-10.8) x10^3/uL RBC (4.70-6.10) 10^6/uL Hgb (14.0-18.0) g/dL Hct (42.0-52.0) % MCV (80.0-94.0) fL MCH (27.0-31.0) pg MCHC (32.0-36.0) g/dL RDW (12.0-15.0) % Plt Count (130-450) 10^3/uL MPV (7.4-11.4) fL Neut # (Auto) (1.5-6.6) 10^3/uL Lymph # (Auto) (1.5-3.5) 10^3/uL [place] # (Auto) (0.0-1.0) 10^3/uL Eos # (Auto) (0.0-0.7) 10^3/uL Baso # (Auto) (0.0-0.1) 10^3/uL Absolute Nucleated RBC x10^3/uL Nucleated RBC % /100WBC Sodium (135-145) mmol/L Potassium (3.5-4.5) mmol/L Chloride (101-111) mmol/L Carbon Dioxide (21-32) mmol/L Anion Gap (6-13) BUN (6-20) mg/dL Creatinine (0.6-1.3) mg/dL Estimated GFR (MDRD) (>89) Glucose (74-104) mg/dL POC Whole Bld Glucose 191 H 154 H 149 H (70 - 100) mg/dL Estimat Average Glucose (70-100) mg/dL Hemoglobin A1c % (4.27-6.07) % Calcium (8.5-10.3) mg/dL Crossmatch IS Only 12/17/23 12/16/23 Range/Units 05:00 09:46 WBC (4.8-10.8) x10^3/uL RBC (4.70-6.10) 10^6/uL Hgb (14.0-18.0) g/dL Hct (42.0-52.0) % MCV (80.0-94.0) fL MCH (27.0-31.0) pg MCHC (32.0-36.0) g/dL RDW (12.0-15.0) % Plt Count (130-450) 10^3/uL MPV (7.4-11.4) fL Neut # (Auto) (1.5-6.6) 10^3/uL Lymph # (Auto) (1.5-3.5) 10^3/uL [place] # (Auto) (0.0-1.0) 10^3/uL Eos # (Auto) (0.0-0.7) 10^3/uL Baso # (Auto) (0.0-0.1) 10^3/uL Absolute Nucleated RBC x10^3/uL Nucleated RBC % /100WBC Sodium (135-145) mmol/L Potassium (3.5-4.5) mmol/L Chloride (101-111) mmol/L Carbon Dioxide (21-32) mmol/L Anion Gap (6-13) BUN (6-20) mg/dL Creatinine (0.6-1.3) mg/dL Estimated GFR (MDRD) (>89) Glucose (74-104) mg/dL POC Whole Bld Glucose (70 - 100) mg/dL Estimat Average Glucose 163 H (70-100) mg/dL Hemoglobin A1c % 7.3 H (4.27-6.07) % Calcium (8.5-10.3) mg/dL Crossmatch IS Only See Detail ABX Reporting Has patient been on IV antibiotics over the past 48 hours?: Yes Sepsis Event Note (H) - Evaluation Current Stage of Sepsis: Ruled out Assessment/Plan - Problem List (1) Proctitis Impression: Presented to the ED on 12/15 c/o rectal pain, CT demonstrated proctitis and high stool burden. Proctitis believed to be due to impaction. Dr. Choe, general surgery, consulted in the ED and recommended medical management with IVF, Zosyn, bowel rest, and aggressive bowel regimen recommended. This is day 3 of antibiotics, he was manually disempacted in the ED by Dr. Choe and had multiple BMs yesterday, no blood observed and not dark in color. He complains of non-s pecific pain with diffuse abdominal tenderness on palpation. He has no evidence of sepsis. He has been afebrile, HR has been normal, BP is stable, WBCs are 8.1. His diet was advanced to carb controlled on 12/16 and he remains on IV zosyn. (2) Acute on chronic kidney failure Impression: He presented with an acute on chronic RAFAEL on 12/15 with a creatinine of 2.4, BUN of 104, and eGFR of 26. He has a baseline on 11/30 was a creatinine 2.0, BUN of 64, and eGFR of 32. It is likely prerenal due to dehydration. His RAFAEL is resolving with a creatinine of 2.2, BUN of 75, and eGFR of 29 today. Potassium has been normal. He received IV fluids on 12/15 and 12/16 and has good urine output. Zosyn was dosed renally. He is now on PO fluids and IV fluids have been d/c'd. I will continue to monitor with daily BMP. Qualifiers: Acute renal failure type: unspecified Chronic kidney disease stage: unspecified stage Qualified Code(s): N17.9 - Acute kidney failure, unspecified; N18.9 - Chronic kidney disease, unspecified (3) Hypoxia Impression: Increasing O2 needs. He had O2 sat of 88% on 2 lpm this am and was increased to 4 lpm. O2 sats are now 90-92%. He does not have baseline O2 needs at home. His respirations are unlabored and his lungs are clear. WBCs are normal and he is afebrile without a reported cough. He is lethargic, rousable to voice, and drifted off repeatedly during assessment, able to follow commands intermittently, moves all extremities, and his speech is more garbled than it was yesterday per the RN. He remains oriented to self which is his baseline. Pupils are 2 mm reactive in low light conditions, suspect he may have prolonged narcotic effects due to decreased renal function. His last MS was 2 mg around 3 am. I dc'd the morphine and ordered 0.25 mg dilaudid q 2 hrs as dilaudid metabolism is not affected by renal function. I also odered a chest x-ray to evaluate possible cardiac and infectious causes of hypoxia. We will work to have nursing get him up and out of bed TID to improve respiratory function. (4) Chronic anemia Impression: Chronic severe anemia, with hbg between 7's to 8's since March of 2003. His iron was low and repleted. He dropped to 6.2 on 12/15 overnight and was transfused with PRBCs. The anemia is likely due both ALBERTO and anemia of chronic disease. Hbg is stable at 7.0 today from 7.1 yesterday post transfusion. I will continue to monitor hbg daily and transfuse as needed. (5) Shingles Impression: Vesicular rash right hip consistent with shingles. Started on acyclovir and placed on contact precautions. Most vesicles have ruptured and appear dry today with one vesicle having crusting. He does not appear to have notable tenderness in the area or localize pain to the region. Acyclovir switched to PO today and will be continued. (6) Sacral pressure sore Impression: He has a previously existing stage 1 sacral pressure ulcer. This is being managed with supportive care and sacral offloading. He is minimally compliant with offloading and rolls onto back when placed on his side. We will continue supportive care. Qualifiers: Pressure injury stage: stage 1 Qualified Code(s): L89.151 - Pressure ulcer of sacral region, stage 1 (7) Hyponatremia Impression: He developed hyponatremia today (12/17) with a sodium of 130. He has been placed on a fluid restriction and IV fluids were discontinued. I will continue to monitor with daily BMP. (8) Insulin dependent diabetes mellitus Impression: DM2 with insulin use at home. He was on semglee 30 units SQ BID and had blood sugars in the 80's on 12/16 and 12/17. His evening semglee was decreased to 25 units. His daytime blood glucose has been good. (9) Hx of coronary artery disease Impression: Hx of of CAD, most recent ECHO 12/04/2022 shows EF 55 to 60%. Continue home carvedilol and spironolactone. D/c'd his amlodipine this am as BP was 128/62 prior to administration.
[2023-12-18] MEDS ORDERED: DEXTROSE 40% GEL 37.5 GM TUBE ONE (11:51)
[2023-12-18] MEDS: DEXTROSE 40% GEL 37.5 GM TUBE PO ONE (11:56)
--- NOTE | 2023-12-18 13:05 | XRAY Report ---
PROCEDURE: Chest 1V INDICATIONS: increasing O2 requiremments TECHNIQUE: One view of the chest was acquired. COMPARISON: 12/01/2023 FINDINGS: Surgical changes and devices: None. Heart size is enlarged. Aortic valve replacement noted. Moderate vascular congestion. Right hemidiaph ragm is obscured with moderate pleural effusion. Associated atelectasis and or infiltrate. The left l sandy and pleural space clear. Study is limited by rotation. IMPRESSION: Cardiomegaly, moderate vascular congestion and right pleural effusion, all increased from the prior Reviewed by: Juarez Charles MD on 12/18/2023 12:04 PM AKDT Approved by: Juarez Charles MD on 12/18/2023 12:04 PM AKDT Station ID: [id number]
--- NOTE | 2023-12-18 14:26 | CT Report ---
PROCEDURE: Head WO INDICATIONS: neuro change TECHNIQUE: Helical axial CT of the brain was obtained without contrast and reformatted in multiple p lanes. Radiation dose reduction was achieved using automated exposure control or adjustment of mA and /or kV according to patient size. COMPARISON: None FINDINGS: CSF spaces: Ventricles are appropriate in size and position. No hydrocephalus. Basal cisterns unre markable. Brain: No midline shift. No intracranial masses or hemorrhage. Pedroza-white matter interface is norm al. Skull and face: Calvarium and skull base are unremarkable without suspicious lesion. Sinuses: Visualized sinuses and mastoids are clear. IMPRESSION: Unremarkable CT of the brain Reviewed by: Juarez Charles MD on 12/18/2023 1:25 PM AKLEONARDO Approved by: Juarez Charles MD on 12/18/2023 1:25 PM AKDT Station ID: [id number]
[2023-12-18] MEDS: PIPERACILLIN/TAZOBACTAM 3.375 GM in SODIUM CHLORIDE 0.9% MINIBAG 100 ML IV SCH (14:29)
--- NOTE | 2023-12-18 14:31 | CT Report ---
PROCEDURE: Chest WO INDICATIONS: hypoxia TECHNIQUE: A CT scan of the chest was performed. Intravenous contrast media was not administered. Images were re corded and evaluated at appropriate window settings. Reformats: axial MIP of the chest, coronal and s agittal. For radiation dose reduction, the following was used: automated exposure control, adjustment of mA and/or kV according to patient size. COMPARISON: CT abdomen and pelvis dated 12/16/2023, chest CT without contrast dated 10/12/2018. FINDINGS: Image quality: Diagnostic. Chest wall and lower neck: No thyroid nodule which requires sonographic follow up. No axillary or sup raclavicular adenopathy by size. Lungs and pleura: Dense pneumonia, superior segment right lower lobe and posterior apical right upper lobe and multiple basilar segments of right lower lobe. Small right pleural effusion and minimal lef t pleural effusion. No suspicious pulmonary nodules which require follow up. Mediastinum: Heart size is normal. No pericardial effusion. Remote percutaneous aortic valve placemen t. At least moderate coronary artery calcifications. No large vessel abnormality. No mediastinal марина opathy by size criteria. Bones: No aggressive osseous abnormality. Upper Abdomen: Cirrhosis, mild upper abdominal ascites, gallstones, splenomegaly. IMPRESSION: Moderately large dense pneumonia, right lung, involving the right lower lobe and a portion of the rig ht upper lobe. Small associated right pleural effusion, minimal left pleural effusion. Cirrhosis, splenomegaly consistent with portal venous hypertension, mild upper abdominal ascites. Cholelithiasis. Reviewed by: Jeronimo Mancuso MD on 12/18/2023 2:29 PM PDT Approved by: Jeronimo Mancuso MD on 12/18/2023 2:29 PM PDT Station ID: [id number]
[2023-12-18] MEDS ORDERED: LORATADINE 10 MG TABLET PO SCH (14:39)
[2023-12-18 15:10] LABS: ADENOVIRUS F 40/41 Not Detected (Not Detected); ASTROVIRUS Not Detected (Not Detected); C DIFFICILE TOXIN A/B Detected (Not Detected); CAMPYLOBACTER Not Detected (Not Detected); CRYPTOSPORIDIUM Not Detected (Not Detected); CYCLOSPORA CAYETANENSIS Not Detected (Not Detected); ENTAMOEBA HISTOLYTICA Not Detected (Not Detected); ENTEROAGGREGATIVE E COLI Not Detected (Not Detected); ENTEROPATHOGENIC E COLI Not Detected (Not Detected); ENTEROTOXIGENIC E COLI Not Detected (Not Detected); GIARDIA LAMBLIA Not Detected (Not Detected); NOROVIRUS GI/GII Not Detected (Not Detected); PLESIOMONAS SHIGELLOIDES Not Detected (Not Detected); ROTAVIRUS A Not Detected (Not Detected); SALMONELLA Not Detected (Not Detected); SAPOVIRUS Not Detected (Not Detected); SHIGA-TOXIN-PRODUCING E COLI Not Detected (Not Detected); SHIGELLA/ENTEROINVASIVE E COLI Not Detected (Not Detected); VIBRIO Not Detected (Not Detected); VIBRIO CHOLERAE Not Detected (Not Detected); YERSINIA ENTEROCOLITICA Not Detected (Not Detected)
[2023-12-18] MEDS: LORazepam 2 MG/ML VIAL IVP ONE (17:41)
--- NOTE | 2023-12-18 18:57 | MRI Report ---
PROCEDURE: Brain WO INDICATIONS: right facial droop TECHNIQUE: Noncontrast axial T1 spin echo, axial T2 fast spin echo, sagittal and axial FLAIR, coronal T2 fast sp in echo, axial gradient echo, axial diffusion and ADC through the brain. COMPARISON: None. FINDINGS: Image quality: poor; motion artifact on multiple sequences. CSF Spaces: Basal cisterns are patent. No extra-axial fluid collections. Ventricles are normal in size and shape. Brain: No intracranial masses or hemorrhage. Pedroza/white matter interface is normal. Brainstem appe ars normal. Diffusion-weighted images demonstrate no acute ischemic insult. No chronic ischemic ins ults. Normal intravascular flow voids are present. Skull and face: Calvarium has normal marrow signal. Orbits appear normal. Sinuses: Mild mucosal thickening of the maxillary sinuses. Sinuses and mastoids are otherwise clear. Other: Atrophy of the bilateral temporalis musculature. IMPRESSION: Severely limited exam due to excessive motion artifact. Within these limitations, no large territoria l stroke or intracranial mass effect. Reviewed by: Fredy Peoples MD on 12/18/2023 6:56 PM PDT Approved by: Fredy Peoples MD on 12/18/2023 6:56 PM PDT Station ID: [id number]
[2023-12-18] MEDS: VANCOMYCIN 125 MG CAPSULE PO SCH (19:41)
[2023-12-18] MEDS: ACYCLOVIR 200 MG CAPSULE PO SCH (19:41)
[2023-12-18] MEDS: INSULIN GLARGINE-YFGN 300 UNIT/3 ML PEN SUBQ SCH ×2 (20:45→20:46)
[2023-12-18] MEDS ORDERED: DEXTROSE 50% ABBOJECT 25 GM/50 ML SYRINGE ONE (21:47)
[2023-12-18] MEDS: DEXTROSE 50% ABBOJECT 25 GM/50 ML SYRINGE IVP ONE (21:51)
--- NOTE | 2023-12-18 21:55 | PROVIDER PROGRESS NOTE ---
Subjective - General Admit Date: 12/16/23 Objective - Patient Data Reviewed Vital Signs: Yes Vital Signs: Vital Signs x48h Temp Pulse Resp BP Pulse Ox O2 Flow Rate 12/18/23 15:51 36.7 C 71 10 L 115/56 L 90 L 4 Weight: Weight 12/16/23 12/17/23 12/18/23 23:59 23:59 23:59 Weight (kg) 104.5 kg 104.5 kg Intake & Output: Intake and Output Totals x24h 12/16/23 12/17/23 12/18/23 23:59 23:59 23:59 Intake Total 3126.667 5189.000 2666.667 Output Total 1525 2025 1300 Balance 6877.282 4811.000 1366.667 - Lab Results Lab Results: 12/18/23 05:20 12/18/23 05:20 Other Lab Results: Lab Results x24hrs 12/18/23 12/18/23 12/18/23 Range/Units 21:39 18:49 17:14 WBC (4.8-10.8) x10^3/uL RBC (4.70-6.10) 10^6/uL Hgb (14.0-18.0) g/dL Hct (42.0-52.0) % MCV (80.0-94.0) fL MCH (27.0-31.0) pg MCHC (32.0-36.0) g/dL RDW (12.0-15.0) % Plt Count (130-450) 10^3/uL MPV (7.4-11.4) fL Neut # (Auto) (1.5-6.6) 10^3/uL Lymph # (Auto) (1.5-3.5) 10^3/uL [place] # (Auto) (0.0-1.0) 10^3/uL Eos # (Auto) (0.0-0.7) 10^3/uL Baso # (Auto) (0.0-0.1) 10^3/uL Absolute Nucleated RBC x10^3/uL Nucleated RBC % /100WBC Sodium (135-145) mmol/L Potassium (3.5-4.5) mmol/L Chloride (101-111) mmol/L Carbon Dioxide (21-32) mmol/L Anion Gap (6-13) BUN (6-20) mg/dL Creatinine (0.6-1.3) mg/dL Estimated GFR (MDRD) (>89) Glucose (74-104) mg/dL POC Whole Bld Glucose 62 L 78 L (70 - 100) mg/dL Calcium (8.5-10.3) mg/dL Ammonia 67.5 (18-72) umol/L Stl C. cayetanensis PCR (Not Detected) Stool Rotavirus A PCR (Not Detected) Stl Adenov F 40/41 PCR (Not Detected) Stool Astrovirus (PCR) (Not Detected) Stool Campylobacter PCR (Not Detected) Stl C. diff Tox A/B PCR (Not Detected) Stool Cryptosporidium PCR (Not Detected) Stl Sh Tox Pr E STEC PCR (Not Detected) Stool E coli O157 PCR (Not Detected) Stl Enterotoxigenic E PCR (Not Detected) Stool EPEC (PCR) (Not Detected) Stl E. histolytica PCR (Not Detected) Stool Giardia Lamblia PCR (Not Detected) Stl P. shigelloides PCR (Not Detected) Stool Salmonella PCR (Not Detected) Stool Sapovirus (PCR) (Not Detected) Stl Shigella/EIEC PCR (Not Detected) St Y.enterocolitica PCR (Not Detected) Stool Vibrio (PCR) (Not Detected) Stl Vibrio cholerae PCR (Not Detected) Stl Enteroaggr Ecoli PCR (Not Detected) Stl Norovirus GI/GII PCR (Not Detected) 12/18/23 12/18/23 12/18/23 Range/Units 16:34 14:33 12:19 WBC (4.8-10.8) x10^3/uL RBC (4.70-6.10) 10^6/uL Hgb (14.0-18.0) g/dL Hct (42.0-52.0) % MCV (80.0-94.0) fL MCH (27.0-31.0) pg MCHC (32.0-36.0) g/dL RDW (12.0-15.0) % Plt Count (130-450) 10^3/uL MPV (7.4-11.4) fL Neut # (Auto) (1.5-6.6) 10^3/uL Lymph # (Auto) (1.5-3.5) 10^3/uL [place] # (Auto) (0.0-1.0) 10^3/uL Eos # (Auto) (0.0-0.7) 10^3/uL Baso # (Auto) (0.0-0.1) 10^3/uL Absolute Nucleated RBC x10^3/uL Nucleated RBC % /100WBC Sodium (135-145) mmol/L Potassium (3.5-4.5) mmol/L Chloride (101-111) mmol/L Carbon Dioxide (21-32) mmol/L Anion Gap (6-13) BUN (6-20) mg/dL Creatinine (0.6-1.3) mg/dL Estimated GFR (MDRD) (>89) Glucose (74-104) mg/dL POC Whole Bld Glucose 79 L 101 H 78 L (70 - 100) mg/dL Calcium (8.5-10.3) mg/dL Ammonia (18-72) umol/L Stl C. cayetanensis PCR (Not Detected) Stool Rotavirus A PCR (Not Detected) Stl Adenov F 40/41 PCR (Not Detected) Stool Astrovirus (PCR) (Not Detected) Stool Campylobacter PCR (Not Detected) Stl C. diff Tox A/B PCR (Not Detected) Stool Cryptosporidium PCR (Not Detected) Stl Sh Tox Pr E STEC PCR (Not Detected) Stool E coli O157 PCR (Not Detected) Stl Enterotoxigenic E PCR (Not Detected) Stool EPEC (PCR) (Not Detected) Stl E. histolytica PCR (Not Detected) Stool Giardia Lamblia PCR (Not Detected) Stl P. shigelloides PCR (Not Detected) Stool Salmonella PCR (Not Detected) Stool Sapovirus (PCR) (Not Detected) Stl Shigella/EIEC PCR (Not Detected) St Y.enterocolitica PCR (Not Detected) Stool Vibrio (PCR) (Not Detected) Stl Vibrio cholerae PCR (Not Detected) Stl Enteroaggr Ecoli PCR (Not Detected) Stl Norovirus GI/GII PCR (Not Detected) 12/18/23 12/18/23 12/18/23 Range/Units 11:20 07:44 05:20 WBC (4.8-10.8) x10^3/uL RBC (4.70-6.10) 10^6/uL Hgb (14.0-18.0) g/dL Hct (42.0-52.0) % MCV (80.0-94.0) fL MCH (27.0-31.0) pg MCHC (32.0-36.0) g/dL RDW (12.0-15.0) % Plt Count (130-450) 10^3/uL MPV (7.4-11.4) fL Neut # (Auto) (1.5-6.6) 10^3/uL Lymph # (Auto) (1.5-3.5) 10^3/uL [place] # (Auto) (0.0-1.0) 10^3/uL Eos # (Auto) (0.0-0.7) 10^3/uL Baso # (Auto) (0.0-0.1) 10^3/uL Absolute Nucleated RBC x10^3/uL Nucleated RBC % /100WBC Sodium 130 L (135-145) mmol/L Potassium 3.8 (3.5-4.5) mmol/L Chloride 107 (101-111) mmol/L Carbon Dioxide 16 L (21-32) mmol/L Anion Gap 7.0 (6-13) BUN 75 H (6-20) mg/dL Creatinine 2.2 H (0.6-1.3) mg/dL Estimated GFR (MDRD) 29 L (>89) Glucose 92 (74-104) mg/dL POC Whole Bld Glucose 75 L 81 (70 - 100) mg/dL Calcium 8.0 L (8.5-10.3) mg/dL Ammonia (18-72) umol/L Stl C. cayetanensis PCR (Not Detected) Stool Rotavirus A PCR (Not Detected) Stl Adenov F 40/41 PCR (Not Detected) Stool Astrovirus (PCR) (Not Detected) Stool Campylobacter PCR (Not Detected) Stl C. diff Tox A/B PCR (Not Detected) Stool Cryptosporidium PCR (Not Detected) Stl Sh Tox Pr E STEC PCR (Not Detected) Stool E coli O157 PCR (Not Detected) Stl Enterotoxigenic E PCR (Not Detected) Stool EPEC (PCR) (Not Detected) Stl E. histolytica PCR (Not Detected) Stool Giardia Lamblia PCR (Not Detected) Stl P. shigelloides PCR (Not Detected) Stool Salmonella PCR (Not Detected) Stool Sapovirus (PCR) (Not Detected) Stl Shigella/EIEC PCR (Not Detected) St Y.enterocolitica PCR (Not Detected) Stool Vibrio (PCR) (Not Detected) Stl Vibrio cholerae PCR (Not Detected) Stl Enteroaggr Ecoli PCR (Not Detected) Stl Norovirus GI/GII PCR (Not Detected) 12/18/23 12/16/23 Range/Units 05:20 03:45 WBC 8.1 (4.8-10.8) x10^3/uL RBC 3.03 L (4.70-6.10) 10^6/uL Hgb 7.0 L* (14.0-18.0) g/dL Hct 24.1 L (42.0-52.0) % MCV 79.5 L (80.0-94.0) fL MCH 23.1 L (27.0-31.0) pg MCHC 29.0 L (32.0-36.0) g/dL RDW 16.9 H (12.0-15.0) % Plt Count 90 L (130-450) 10^3/uL MPV 9.9 (7.4-11.4) fL Neut # (Auto) 5.6 (1.5-6.6) 10^3/uL Lymph # (Auto) 1.4 L (1.5-3.5) 10^3/uL [place] # (Auto) 0.6 (0.0-1.0) 10^3/uL Eos # (Auto) 0.2 (0.0-0.7) 10^3/uL Baso # (Auto) 0.0 (0.0-0.1) 10^3/uL Absolute Nucleated RBC 0.00 x10^3/uL Nucleated RBC % 0.0 /100WBC Sodium (135-145) mmol/L Potassium (3.5-4.5) mmol/L Chloride (101-111) mmol/L Carbon Dioxide (21-32) mmol/L Anion Gap (6-13) BUN (6-20) mg/dL Creatinine (0.6-1.3) mg/dL Estimated GFR (MDRD) (>89) Glucose (74-104) mg/dL POC Whole Bld Glucose (70 - 100) mg/dL Calcium (8.5-10.3) mg/dL Ammonia (18-72) umol/L Stl C. cayetanensis PCR Not Detected (Not Detected) Stool Rotavirus A PCR Not Detected (Not Detected) Stl Adenov F 40/41 PCR Not Detected (Not Detected) Stool Astrovirus (PCR) Not Detected (Not Detected) Stool Campylobacter PCR Not Detected (Not Detected) Stl C. diff Tox A/B PCR Detected A (Not Detected) Stool Cryptosporidium PCR Not Detected (Not Detected) Stl Sh Tox Pr E STEC PCR Not Detected (Not Detected) Stool E coli O157 PCR Not applicable (Not Detected) Stl Enterotoxigenic E PCR Not Detected (Not Detected) Stool EPEC (PCR) Not Detected (Not Detected) Stl E. histolytica PCR Not Detected (Not Detected) Stool Giardia Lamblia PCR Not Detected (Not Detected) Stl P. shigelloides PCR Not Detected (Not Detected) Stool Salmonella PCR Not Detected (Not Detected) Stool Sapovirus (PCR) Not Detected (Not Detected) Stl Shigella/EIEC PCR Not Detected (Not Detected) St Y.enterocolitica PCR Not Detected (Not Detected) Stool Vibrio (PCR) Not Detected (Not Detected) Stl Vibrio cholerae PCR Not Detected (Not Detected) Stl Enteroaggr Ecoli PCR Not Detected (Not Detected) Stl Norovirus GI/GII PCR Not Detected (Not Detected) - Current Medications Current Medications: Current Medications Generic Name Dose Route Start Last Admin Trade Name Freq PRN Reason Stop Dose Admin Acetaminophen 650 mg 12/16/23 10:47 12/17/23 22:27 Acetaminophen 325 Mg Tablet PO 650 mg Q4HR PRN Administration Pain 1 to 4, or Fever Acyclovir 800 mg 12/18/23 18:00 12/18/23 20:45 Acyclovir 200 Mg Capsule PO Not Given 5XD CATIE Calamine 1 applic 12/17/23 17:39 12/18/23 06:49 Calamine/Zinc Oxide 177 Ml Bottle TOP 1 applic PRN PRN Administration SKIN CARE Carvedilol 6.25 mg 12/16/23 21:00 12/18/23 20:44 Carvedilol 3.125 Mg Tablet PO Not Given BID CATIE Docusate Sodium 100 mg 12/17/23 09:00 12/18/23 08:46 Docusate Sodium 100 Mg Capsule PO 100 mg DAILY CATIE Administration Fluticasone Propionate 1 sprays 12/17/23 09:00 12/18/23 09:00 Fluticasone Nasal Webb MAN 1 spr DAILY CATIE Administration Furosemide 40 mg 12/17/23 09:00 12/18/23 08:46 Furosemide 40 Mg Tablet PO 40 mg DAILY CATIE Administration Gabapentin 300 mg 12/16/23 22:00 12/18/23 20:45 Gabapentin 300 Mg Capsule PO Not Given TID CATIE Guaifenesin 600 mg 12/17/23 09:00 12/18/23 20:44 Guaifenesin 600 Mg Tablet PO Not Given BID CATIE Heparin Sodium (Porcine) 5,000 unit 12/16/23 21:00 12/18/23 20:44 Heparin 5,000 Unit/Ml Vial SUBQ Not Given BID CATIE Piperacillin Sod/Tazobactam 100 mls @ 25 mls/hr 12/18/23 14:00 12/18/23 21:22 Sod 3.375 gm/ Sodium Chloride IV 25 mls/hr Q8H CATIE Administration Insulin Glargine-yfgn 30 unit 12/19/23 09:00 12/18/23 20:46 Insulin Glargine-Yfgn 300 Unit/3 Ml Pen SUBQ Not Given DAILY CATIE Insulin Glargine-yfgn 25 unit 12/18/23 21:00 12/18/23 20:45 Insulin Glargine-Yfgn 300 Unit/3 Ml Pen SUBQ Not Given QPM CATIE Lactic Acid 1 gm 12/17/23 10:00 12/18/23 20:44 Ammonium Lactate 227 Gm Bottle TOP Not Given BID CATIE Melatonin 3 mg 12/16/23 21:00 12/18/23 20:45 Melatonin 3 Mg Tablet PO Not Given HS [facility] Multi-Ingredient Ointment 1 applic 12/16/23 12:59 12/18/23 06:49 Zinc Oxide 20% Oint 30 Gm Tube TOP 1 applic PRN PRN Administration Skin Care Multivitamins/Minerals 1 tab 12/17/23 17:00 12/18/23 08:46 Multivitamin W/Minerals Tablet PO 1 tab DAILYWM CATIE Administration Pantoprazole Sodium 40 mg 12/17/23 07:00 09/18/24 06:36 Pantoprazole 40 Mg Tablet PO 40 mg QDAC CATIE Administration Sodium Biphosphate/Sodium Phosphate 133 ml 12/16/23 17:00 12/18/23 17:41 Saline Enema 133 Ml Bottle RC Not Given Q8H CATIE Sodium Chloride 10 ml 12/16/23 17:00 12/18/23 17:41 Sodium Chloride Flush 0.9% 10 Ml Syringe IVP 10 ml 0100,0900,1700 CATIE Administration Spironolactone 25 mg 12/17/23 21:00 12/18/23 20:45 Spironolactone 25 Mg Tablet PO Not Given HS CATIE Tamsulosin HCl 0.8 mg 12/16/23 21:00 12/18/23 20:45 Tamsulosin 0.4 Mg Capsule PO Not Given HS CATIE Tramadol HCl 50 mg 12/17/23 07:14 12/18/23 03:24 Tramadol 50 Mg Tablet PO 50 mg Q4HR PRN Administration Moderate Pain (Level 4-6) Vancomycin HCl 125 mg 12/18/23 17:00 12/18/23 20:45 Vancomycin 125 Mg Capsule PO Not Given QID CATIE ABX Reporting Has patient been on IV antibiotics over the past 48 hours?: Yes Impression/Plan - Problem List Problem List: 78yoM with multiple significant comorbidities, admitted with acute onset (3d) rectal pain and CT suggestive of proctitis. Given stool volume within rectum on CT, suspect that fecal impaction and partial rectal obstruction is the underlying etiology of inflammation of the rectum. Was able to disimpact a large volume of stool at beside via LISANDRA/manual disimpaction on day of admission, with enemas & bowel regimen since then. Events of the day noted, to include dx of aspiration pna, c diff +, as well as update from hospice physician about his colon cancer dx from mar 2023 and patient/family decision not to pursue treatment and POLST. -At this time there are no surgical issues. -I do not think that the proctitis needs further abx, as it was likely inflammation related to fecal impaction, and patient continues to have no WBC. -Recommend continued enemas and bowel regimen as needed. -Note that patient at risk for eventual large bowel obstruction with untreated colon cancer Chronic stage 1 large sacral decubitus ulcer - offload as possible - wound care - optimize protein / nutritional status General Surgery will sign off, please call with any questions or concerns. Susan Choe DO, FACS General Sur[facility], [facility]
[2023-12-18] MEDS: DEXTROSE 5%-0.9% NACL 1,000 ML IV SCH (22:04)
[2023-12-19] MEDS: INSULIN REGULAR, HUMAN 300 UNIT/3 ML PEN SUBQ SCH (00:13)
[2023-12-19 05:36] LABS: BASOPHILS % (AUTO) 0.5 %; EOSINOPHILS # (AUTO) 0.1 10^3/uL (0.0-0.7); EOSINOPHILS % (AUTO) 1.3 %; HCT - HEMATOCRIT 25.7 % (42.0-52.0); HGB - HEMOGLOBIN 7.4 g/dL (14.0-18.0); LYMPHOCYTES % (AUTO) 13.3 %; MEAN CORPUSCULAR HEMOGLOBIN 22.8 pg (27.0-31.0); MEAN CORPUSCULAR HGB CONC 28.8 g/dL (32.0-36.0); MEAN CORPUSCULAR VOLUME 79.3 fL (80.0-94.0); MEAN PLATELET VOLUME 9.3 fL (7.4-11.4); MONOCYTES # (AUTO) 0.6 10^3/uL (0.0-1.0); MONOCYTES % (AUTO) 7.6 %; NEUTROPHILS # (AUTO) 5.7 10^3/uL (1.5-6.6); NEUTROPHILS % (AUTO) 73.9 %; NRBC ABSOLUTE COUNT (AUTO) 0.02 x10^3/uL; NUCLEATED RED BLOOD CELLS AUTO 0.3 /100WBC; PLT - PLATELET COUNT 90 10^3/uL (130-450); RED BLOOD COUNT 3.24 10^6/uL (4.70-6.10); RED CELL DISTRIBUTION WIDTH 17.2 % (12.0-15.0); WHITE BLOOD COUNT 7.7 x10^3/uL (4.8-10.8)
[2023-12-19 05:53] LABS: CALCIUM 8.3 mg/dL (8.5-10.3); CREATININE 2.1 mg/dL (0.6-1.3); POTASSIUM 3.7 mmol/L (3.5-4.5)
[2023-12-19] MEDS: metroNIDAZOLE 500 MG/100 ML 500 MG/100 ML BAG IV SCH (12:26)
[2023-12-19] MEDS: FUROSEMIDE 20 MG/2 ML VIAL IVP SCH (12:26)
[2023-12-19] MEDS: METOPROLOL 5 MG/5 ML VIAL IVP SCH (12:26)
[2023-12-19] MEDS ORDERED: HALOPERIDOL 5 MG/ML VIAL IVP PRN (14:31)
[2023-12-19] MEDS ORDERED: GLYCOPYRROLATE 1 MG/5 ML VIAL SUBQ PRN (14:31)
[2023-12-19] MEDS ORDERED: MORPHINE 2 MG/ML CARPUJECT IVP PRN (14:31)
[2023-12-19] MEDS ORDERED: ONDANSETRON 4 MG/2 ML VIAL IVP PRN (14:31)
[2023-12-19] MEDS ORDERED: traZODone 50 MG TABLET PO PRN (14:31)
--- NOTE | 2023-12-19 14:34 | PROVIDER PROGRESS NOTE ---
Subjective - Prog Note Date Prog Note Date: 12/19/23 Prog Note Time: 14:34 - Subjective Pt reports feeling: Worse Subjective: Minimally verbal today. States he does not want to be in the hospital. He is irritable. I am at the bedside as the nurse is performing the bedside swallow screen, and he is obviously unable to safely swallow. Current Medications - Current Medications Current Medications: Medications Calamine (Calamine/Zinc Oxide 177 Ml Bottle) 1 applic TOP PRN PRN PRN Reason: SKIN CARE Last Admin: 12/18/23 06:49 Dose: 1 applic Albuterol (Albuterol Neb 2.5 Mg/3 Ml) 2.5 mg INH RTQ4H PRN PRN Reason: Shortness of Air/Wheezing Dextrose/Sodium Chloride (D5ns) 1,000 mls @ 100 mls/hr IV .Q10H [facility] Last Admin: 12/19/23 08:45 Dose: 100 mls/hr Diclofenac Sodium (Diclofenac Sodium 1% Gel 50 Gm Tube) 1 gm TOP Q8HR PRN PRN Reason: PAIN 1-4 Furosemide (Furosemide 20 Mg/2 Ml Vial) 20 mg IVP DAILY [facility] Last Admin: 12/19/23 12:26 Dose: 20 mg Glycopyrrolate (Glycopyrrolate 1 Mg/5 Ml Vial) 0.2 mg SUBQ Q4H PRN PRN Reason: Excessive secretions Haloperidol (Haloperidol 5 Mg/Ml Vial) 0.5 mg IVP Q6H PRN PRN Reason: Nausea / Vomiting Heparin Sodium (Porcine) (Heparin 5,000 Unit/Ml Vial) 5,000 unit SUBQ BID [facility] Last Admin: 12/19/23 09:13 Dose: 5,000 unit Hydralazine HCl (Hydralazine 10 Mg Tablet) 10 mg PO BID PRN PRN Reason: NEEDED PER PROVIDER ORDERS Hydromorphone HCl (Hydromorphone 0.5 Mg/0.5 Ml Syringe) 0.25 mg IVP Q2H PRN PRN Reason: Severe Pain (Level 7-10) Last Admin: 12/19/23 15:55 Dose: 0.25 mg Insulin Human Lispro (Insulin Lispro 300 Unit/3 Ml Pen) 1 - 5 unit SUBQ 0800,1200,1700,2100 [facility]; Protocol Last Admin: 12/19/23 16:44 Dose: Not Given Lorazepam (Lorazepam 2 Mg/Ml Vial) 1 mg IVP Q6H PRN PRN Reason: Anxiety/Agitation Metoprolol Tartrate (Metoprolol 5 Mg/5 Ml Vial) 5 mg IVP Q6H [facility] Last Admin: 12/19/23 12:26 Dose: 5 mg Multi-Ingredient Ointment (Zinc Oxide 20% Oint 30 Gm Tube) 1 applic TOP PRN PRN PRN Reason: Skin Care Last Admin: 12/19/23 06:11 Dose: 1 applic Ondansetron HCl (Ondansetron 4 Mg/2 Ml Vial) 4 mg IVP Q8H PRN PRN Reason: Nausea / Vomiting Sodium Biphosphate/Sodium Phosphate (Saline Enema 133 Ml Bottle) 133 ml RC Q8H [facility] Last Admin: 12/19/23 16:44 Dose: Not Given Trazodone HCl (Trazodone 50 Mg Tablet) 25 mg PO QPM PRN PRN Reason: Insomnia Zinc Oxide (Cod Liver Oil/Zinc Oxide 113 Gm Tube) 113 gm TOP PRN PRN PRN Reason: Skin Care Objective - Vital Signs/Intake & Output Vital Signs: Vital Signs x48h Temp Pulse Resp BP BP Pulse Ox O2 Flow Rate 12/19/23 12:26 135/64 H 12/19/23 08:25 36.7 C 85 18 135/64 H 94 3.5 12/19/23 07:00 3.5 Intake & Output: Intake & Output 12/16/23 12/17/23 12/18/23 12/19/23 23:59 23:59 23:59 23:59 Intake Total 3126.667 5189.000 2666.667 1100 Output Total 1525 2025 2400 1750 Balance 4745.758 2839.000 266.667 -650 - Objective General Appearance: positive: Alert Eyes Bilateral: positive: Normal inspection ENT: positive: ENT inspection nml Neck: positive: Nml inspection Respiratory: positive: Breath sounds nml Cardiovascular: positive: Regular rate & rhythm Abdomen: positive: Non-tender, No distention Skin: positive: Color nml Extremities: positive: Non-tender, Other (right BKA) Neurologic/Psychiatric: positive: Disoriented to place, Disoriented to time - Lab Results Fish Bones: 12/19/23 05:28 12/19/23 05:28 Other Labs: Lab Results x24hrs 12/19/23 12/19/23 12/19/23 Range/Units 11:01 06:04 05:28 WBC (4.8-10.8) x10^3/uL RBC (4.70-6.10) 10^6/uL Hgb (14.0-18.0) g/dL Hct (42.0-52.0) % MCV (80.0-94.0) fL MCH (27.0-31.0) pg MCHC (32.0-36.0) g/dL RDW (12.0-15.0) % Plt Count (130-450) 10^3/uL MPV (7.4-11.4) fL Neut # (Auto) (1.5-6.6) 10^3/uL Lymph # (Auto) (1.5-3.5) 10^3/uL Garrard # (Auto) (0.0-1.0) 10^3/uL Eos # (Auto) (0.0-0.7) 10^3/uL Baso # (Auto) (0.0-0.1) 10^3/uL Absolute Nucleated RBC x10^3/uL Nucleated RBC % /100WBC Sodium 137 (135-145) mmol/L Potassium 3.7 (3.5-4.5) mmol/L Chloride 115 H (101-111) mmol/L Carbon Dioxide 16 L (21-32) mmol/L Anion Gap 6.0 (6-13) BUN 59 H (6-20) mg/dL Creatinine 2.1 H (0.6-1.3) mg/dL Estimated GFR (MDRD) 31 L (>89) Glucose 114 H (74-104) mg/dL POC Whole Bld Glucose 136 H 95 (70 - 100) mg/dL Calcium 8.3 L (8.5-10.3) mg/dL Ammonia (18-72) umol/L Stl C. cayetanensis PCR (Not Detected) Stool Rotavirus A PCR (Not Detected) Stl Adenov F 40/41 PCR (Not Detected) Stool Astrovirus (PCR) (Not Detected) Stool Campylobacter PCR (Not Detected) Stl C. diff Tox A/B PCR (Not Detected) Stool Cryptosporidium PCR (Not Detected) Stl Sh Tox Pr E STEC PCR (Not Detected) Stool E coli O157 PCR (Not Detected) Stl Enterotoxigenic E PCR (Not Detected) Stool EPEC (PCR) (Not Detected) Stl E. histolytica PCR (Not Detected) Stool Giardia Lamblia PCR (Not Detected) Stl P. shigelloides PCR (Not Detected) Stool Salmonella PCR (Not Detected) Stool Sapovirus (PCR) (Not Detected) Stl Shigella/EIEC PCR (Not Detected) St Y.enterocolitica PCR (Not Detected) Stool Vibrio (PCR) (Not Detected) Stl Vibrio cholerae PCR (Not Detected) Stl Enteroaggr Ecoli PCR (Not Detected) Stl Norovirus GI/GII PCR (Not Detected) 12/19/23 12/18/23 12/18/23 Range/Units 05:28 23:52 22:08 WBC 7.7 (4.8-10.8) x10^3/uL RBC 3.24 L (4.70-6.10) 10^6/uL Hgb 7.4 L (14.0-18.0) g/dL Hct 25.7 L (42.0-52.0) % MCV 79.3 L (80.0-94.0) fL MCH 22.8 L (27.0-31.0) pg MCHC 28.8 L (32.0-36.0) g/dL RDW 17.2 H (12.0-15.0) % Plt Count 90 L (130-450) 10^3/uL MPV 9.3 (7.4-11.4) fL Neut # (Auto) 5.7 (1.5-6.6) 10^3/uL Lymph # (Auto) 1.0 L (1.5-3.5) 10^3/uL Garrard # (Auto) 0.6 (0.0-1.0) 10^3/uL Eos # (Auto) 0.1 (0.0-0.7) 10^3/uL Baso # (Auto) 0.0 (0.0-0.1) 10^3/uL Absolute Nucleated RBC 0.02 x10^3/uL Nucleated RBC % 0.3 /100WBC Sodium (135-145) mmol/L Potassium (3.5-4.5) mmol/L Chloride (101-111) mmol/L Carbon Dioxide (21-32) mmol/L Anion Gap (6-13) BUN (6-20) mg/dL Creatinine (0.6-1.3) mg/dL Estimated GFR (MDRD) (>89) Glucose (74-104) mg/dL POC Whole Bld Glucose 131 H 148 H (70 - 100) mg/dL Calcium (8.5-10.3) mg/dL Ammonia (18-72) umol/L Stl C. cayetanensis PCR (Not Detected) Stool Rotavirus A PCR (Not Detected) Stl Adenov F 40/41 PCR (Not Detected) Stool Astrovirus (PCR) (Not Detected) Stool Campylobacter PCR (Not Detected) Stl C. diff Tox A/B PCR (Not Detected) Stool Cryptosporidium PCR (Not Detected) Stl Sh Tox Pr E STEC PCR (Not Detected) Stool E coli O157 PCR (Not Detected) Stl Enterotoxigenic E PCR (Not Detected) Stool EPEC (PCR) (Not Detected) Stl E. histolytica PCR (Not Detected) Stool Giardia Lamblia PCR (Not Detected) Stl P. shigelloides PCR (Not Detected) Stool Salmonella PCR (Not Detected) Stool Sapovirus (PCR) (Not Detected) Stl Shigella/EIEC PCR (Not Detected) St Y.enterocolitica PCR (Not Detected) Stool Vibrio (PCR) (Not Detected) Stl Vibrio cholerae PCR (Not Detected) Stl Enteroaggr Ecoli PCR (Not Detected) Stl Norovirus GI/GII PCR (Not Detected) 12/18/23 12/18/23 12/18/23 Range/Units 21:39 18:49 17:14 WBC (4.8-10.8) x10^3/uL RBC (4.70-6.10) 10^6/uL Hgb (14.0-18.0) g/dL Hct (42.0-52.0) % MCV (80.0-94.0) fL MCH (27.0-31.0) pg MCHC (32.0-36.0) g/dL RDW (12.0-15.0) % Plt Count (130-450) 10^3/uL MPV (7.4-11.4) fL Neut # (Auto) (1.5-6.6) 10^3/uL Lymph # (Auto) (1.5-3.5) 10^3/uL Garrard # (Auto) (0.0-1.0) 10^3/uL Eos # (Auto) (0.0-0.7) 10^3/uL Baso # (Auto) (0.0-0.1) 10^3/uL Absolute Nucleated RBC x10^3/uL Nucleated RBC % /100WBC Sodium (135-145) mmol/L Potassium (3.5-4.5) mmol/L Chloride (101-111) mmol/L Carbon Dioxide (21-32) mmol/L Anion Gap (6-13) BUN (6-20) mg/dL Creatinine (0.6-1.3) mg/dL Estimated GFR (MDRD) (>89) Glucose (74-104) mg/dL POC Whole Bld Glucose 62 L 78 L (70 - 100) mg/dL Calcium (8.5-10.3) mg/dL Ammonia 67.5 (18-72) umol/L Stl C. cayetanensis PCR (Not Detected) Stool Rotavirus A PCR (Not Detected) Stl Adenov F 40/41 PCR (Not Detected) Stool Astrovirus (PCR) (Not Detected) Stool Campylobacter PCR (Not Detected) Stl C. diff Tox A/B PCR (Not Detected) Stool Cryptosporidium PCR (Not Detected) Stl Sh Tox Pr E STEC PCR (Not Detected) Stool E coli O157 PCR (Not Detected) Stl Enterotoxigenic E PCR (Not Detected) Stool EPEC (PCR) (Not Detected) Stl E. histolytica PCR (Not Detected) Stool Giardia Lamblia PCR (Not Detected) Stl P. shigelloides PCR (Not Detected) Stool Salmonella PCR (Not Detected) Stool Sapovirus (PCR) (Not Detected) Stl Shigella/EIEC PCR (Not Detected) St Y.enterocolitica PCR (Not Detected) Stool Vibrio (PCR) (Not Detected) Stl Vibrio cholerae PCR (Not Detected) Stl Enteroaggr Ecoli PCR (Not Detected) Stl Norovirus GI/GII PCR (Not Detected) 12/18/23 12/18/23 12/16/23 Range/Units 16:34 14:33 03:45 WBC (4.8-10.8) x10^3/uL RBC (4.70-6.10) 10^6/uL Hgb (14.0-18.0) g/dL Hct (42.0-52.0) % MCV (80.0-94.0) fL MCH (27.0-31.0) pg MCHC (32.0-36.0) g/dL RDW (12.0-15.0) % Plt Count (130-450) 10^3/uL MPV (7.4-11.4) fL Neut # (Auto) (1.5-6.6) 10^3/uL Lymph # (Auto) (1.5-3.5) 10^3/uL Garrard # (Auto) (0.0-1.0) 10^3/uL Eos # (Auto) (0.0-0.7) 10^3/uL Baso # (Auto) (0.0-0.1) 10^3/uL Absolute Nucleated RBC x10^3/uL Nucleated RBC % /100WBC Sodium (135-145) mmol/L Potassium (3.5-4.5) mmol/L Chloride (101-111) mmol/L Carbon Dioxide (21-32) mmol/L Anion Gap (6-13) BUN (6-20) mg/dL Creatinine (0.6-1.3) mg/dL Estimated GFR (MDRD) (>89) Glucose (74-104) mg/dL POC Whole Bld Glucose 79 L 101 H (70 - 100) mg/dL Calcium (8.5-10.3) mg/dL Ammonia (18-72) umol/L Stl C. cayetanensis PCR Not Detected (Not Detected) Stool Rotavirus A PCR Not Detected (Not Detected) Stl Adenov F 40/41 PCR Not Detected (Not Detected) Stool Astrovirus (PCR) Not Detected (Not Detected) Stool Campylobacter PCR Not Detected (Not Detected) Stl C. diff Tox A/B PCR Detected A (Not Detected) Stool Cryptosporidium PCR Not Detected (Not Detected) Stl Sh Tox Pr E STEC PCR Not Detected (Not Detected) Stool E coli O157 PCR Not applicable (Not Detected) Stl Enterotoxigenic E PCR Not Detected (Not Detected) Stool EPEC (PCR) Not Detected (Not Detected) Stl E. histolytica PCR Not Detected (Not Detected) Stool Giardia Lamblia PCR Not Detected (Not Detected) Stl P. shigelloides PCR Not Detected (Not Detected) Stool Salmonella PCR Not Detected (Not Detected) Stool Sapovirus (PCR) Not Detected (Not Detected) Stl Shigella/EIEC PCR Not Detected (Not Detected) St Y.enterocolitica PCR Not Detected (Not Detected) Stool Vibrio (PCR) Not Detected (Not Detected) Stl Vibrio cholerae PCR Not Detected (Not Detected) Stl Enteroaggr Ecoli PCR Not Detected (Not Detected) Stl Norovirus GI/GII PCR Not Detected (Not Detected) ABX Reporting Has patient been on IV antibiotics over the past 48 hours?: Yes Sepsis Event Note (H) - Evaluation Current Stage of Sepsis: Ruled out Assessment/Plan - Problem List (1) Aspiration pneumonia Impression: Increasing O2 needs. He had O2 sat of 88% on 2 lpm this and was increased to 4 lpm. O2 sats are now 94-98%. He does not have baseline O2 needs at home. His respirations are unlabored and his lungs are clear. WBCs are normal and he is afebrile without a reported cough. able to follow commands intermittently, moves all extremities, and his speech is more garbled. He remains oriented to self which is his baseline.He is unable to swallow thus the etiology of his aspiration pneumonia. I had an additional goals of care discussion with the son this afternoon. And at this point he would like to pursue comfort care for his stepfather. I am therefore discontinuing the antibiotics. I am instituting comfort care. Qualifiers: Laterality: right (2) Acute on chronic kidney failure Impression: He presented with an acute on chronic RAFAEL on 12/15 with a creatinine of 2.4, BUN of 104, and eGFR of 26. He has a baseline on 11/30 was a creatinine 2.0, BUN of 64, and eGFR of 32. It is likely prerenal due to dehydration. His RAFAEL is resolving with a creatinine of 2.1, BUN of 59, and eGFR of 31 today. Potassium has been normal. He is now comfort care. I will allow him to take any fluids he wants by mouth. Qualifiers: Acute renal failure type: unspecified Chronic kidney disease stage: unspecified stage Qualified Code(s): N17.9 - Acute kidney failure, unspec ified; N18.9 - Chronic kidney disease, unspecified (3) C. difficile colitis Impression: He is not having excessive stools. He is not having abdominal pain. He has chronic rectal pain. This is no different than his baseline. He has a stool sample is positive for C. difficile. At this point I am not going to treat him for his C. difficile infection. As it is not clinically causing him difficulties. (4) Proctitis Impression: Presented to the ED on 12/15 c/o rectal pain, CT demonstrated proctitis and high stool burden. Proctitis believed to be due to impaction. Dr. Choe, general surgery, consulted in the ED and recommended medical management with IVF, Zosyn, bowel rest, and aggressive bowel regimen recommended. We have de-escalated antibiotics. He is not having discomfort. He is refusing enemas. (5) Chronic anemia Impression: Chronic severe anemia, with hbg between 7's to 8's since March of 2003. His iron was low and repleted. He has received 1 unit of packed red blood cells this admission. (6) Shingles Impression: Vesicular rash right hip consistent with shingles.The his lesions are dry and crusted. I have discontinued the acyclovir as has been difficult for him to take pills and I think at this point it is not necessary. (7) Pressure ulcer Impression: He has a previously existing stage 1 sacral pressure ulcer. This is being managed with supportive care and sacral offloading. He is minimally compliant with offloading and rolls onto back when placed on his side. We will continue supportive care. (8) Hyponatremia Impression: resolved. (9) Type 2 diabetes mellitus Impression: Selected Entries 12/18/23 12/18/23 12/18/23 16:35 18:57 21:50 Result (mg/dL) 79 78 62 12/18/23 12/18/23 12/18/23 21:51 22:10 23:54 Result (mg/dL) 62 148 131 12/19/23 12/19/23 12/19/23 06:00 11:05 16:30 Result (mg/dL) 95 136 133 12/19/23 16:44 Result (mg/dL) 133 I have discontinued long-acting insulin. I have him on sliding scale as needed. Will see how his blood sugars changes his p.o. intake changes. Qualifiers: (10) Hx of coronary artery disease Impression: Hx of of CAD, most recent ECHO 12/04/2022 shows EF 55 to 60%. Continue home carvedilol and spironolactone. D/c'd his amlodipine this am as BP was 128/62 prior to administration.
--- NOTE | 2023-12-19 14:37 | ADVANCE CARE PLANNING NOTE ---
Advance Care Planning - Planning Encounter Date: 12/19/23 Time: 14:34 Purpose: Edil is agitated and uncomfortable, and has been for some time. most recently, he is unable to swallow. Parties in Attendance: Stanford Albararn (step son and POA). Lizy Keyes PA-C. patient- Edil [place] Decisional Capacity of the Patient: Edil has little to no insight into his medical situation. He seems to be able to identify his feelings in the moment. He is uncomfortable. In the days that I have been observing him I have never seen him comfortable or at peace. - Diagnosis for Encounter (1) Aspiration pneumonia Qualifiers: Laterality: right - Encounter Subjective/Patient's Story: Edil has a colon cancer that about 9 months ago his family elected not to treat. It sounds as if he was admitted to [facility] under hospice care for some time and then possibly graduated from hospice. In any event he has been living at [place] for some months now and is unhappy in general at [place] but also unhappy in life. He is uncomfortable. He is bedbound. He is often agitated and upset. His family visits him they see this and it weighs heavily on their hearts. His son Ryan is here at the bedside today and is able to express all of this to me. Objective/Medical Story: Yesterday Edil had an acute change where he was unable to swallow. He underwent workup for acute stroke and none was found. It appears that Edil is failing to thrive. He is unhappy he is agitated and he is in pain. He was admitted for presumed proctitis but this was probably more likely severe constipation. He has been manually disimpacted. More recently he is being treated for an aspiration pneumonia and his agitation and discomfort is more and more apparent. His stepson Ryan is at the bedside today to discuss continuing goals of care. Edil is intermittently oriented to himself and intermittently oriented to the fact that he is in the hospital. This afternoon he is stating he does not want to be in the hospital. He is also very clear that he does not want to return to [place]. He agrees that he would like to be comfortable. He intermittently complains of being thirsty and wanting water Goals of Care: Edil has not had quality of life for some time. He has been bedbound uncomfortable and unhappy. He has chronic rectal pain. I do not believe his rectal pain is related to his colon cancer as the colon cancer is documented to be 40 cm from the anal verge. Plan: Edil currently has an aspiration pneumonia. We will discontinue antibiotics for this. He has stool that is positive for C. difficile, however he is not having frequent stools or diarrhea, therefore I feel it unnecessary to treat his C. difficile. He is actively aspirating. We have witnessed this. However, he wants oral intake. We will liberalize his diet we will discontinue antibiotics Code Status: Do Not Attempt Resuscitation Time spent on advance care planninmin
[2023-12-19] MEDS: HYDROmorphone 0.5 MG/0.5 ML SYRINGE IVP PRN (15:55)
[2023-12-19] MEDS: INSULIN LISPRO 300 UNIT/3 ML PEN SUBQ SCH (16:44)
[2023-12-19] MEDS ORDERED: SALINE ENEMA 133 ML BOTTLE RC PRN (18:53)
--- NOTE | 2023-12-19 23:01 | PROVIDER PROGRESS NOTE ---
[employer] Operator Note - [employer] Operator Note [employer] Operator Note: Called by RN stating "Pt is on comfort care as of today, has taken PRN IV dilaudid 0.25mg Q2H x 3 doses with moderate effect. Notice improved comfort but does not last the full 2 hours and does not completely reduce pain per pt reports. Pt requesting stronger dose or additional. PRN morphine contraindicated, can we increase dose of IV dilaudid to 0.5mg? Per day coverage, IV morphine contraindicated d/t impaired renal function." Dilaudid 0.5 mg ivp q 2 hrs prn severe pain ordered
[2023-12-20] MEDS: HYDROmorphone 0.5 MG/0.5 ML SYRINGE IVP PRN (00:13)
--- NOTE | 2023-12-20 09:05 | PROVIDER PROGRESS NOTE ---
Subjective - Prog Note Date Prog Note Date: 12/20/23 Prog Note Time: 09:01 - Subjective Pt reports feeling: Worse Subjective: multiple complaints. Was able to eat Jell-O yesterday and is asking for things to drink today. He complains about pain in his groin related to his skin. Current Medications - Current Medications Current Medications: Medications Albuterol (Albuterol Neb 2.5 Mg/3 Ml) 2.5 mg INH RTQ4H PRN PRN Reason: Shortness of Air/Wheezing Haloperidol (Haloperidol 5 Mg/Ml Vial) 1 mg IVP Q6H PRN PRN Reason: Agitation Hydromorphone HCl (Hydromorphone 0.5 Mg/0.5 Ml Syringe) 0.5 mg IVP Q2H PRN PRN Reason: Severe Pain (Level 7-10) Last Admin: 12/20/23 12:59 Dose: 0.5 mg Sodium Biphosphate/Sodium Phosphate (Saline Enema 133 Ml Bottle) 133 ml RC Q8H PRN PRN Reason: Constipation Zinc Oxide (Cod Liver Oil/Zinc Oxide 113 Gm Tube) 113 gm TOP PRN PRN PRN Reason: Skin Care Hydroxyzine Pamoate (Hydroxyzine Pamoate 25 Mg Capsule) 25 mg PO Q6H PRN PRN Reason: ITCHING Last Admin: 12/20/23 09:11 Dose: 25 mg Lorazepam (Lorazepam 2 Mg/Ml Vial) 2 mg IVP Q2H PRN PRN Reason: Anxiety/Agitation Last Admin: 12/20/23 14:35 Dose: 2 mg Calamine (Calamine/Zinc Oxide 177 Ml Bottle) 1 applic TOP PRN PRN PRN Reason: SKIN CARE Last Admin: 12/18/23 06:49 Dose: 1 applic Diclofenac Sodium (Diclofenac Sodium 1% Gel 50 Gm Tube) 1 gm TOP Q8HR PRN PRN Reason: PAIN 1-4 Glycopyrrolate (Glycopyrrolate 1 Mg/5 Ml Vial) 0.2 mg SUBQ Q4H PRN PRN Reason: Excessive secretions Hydralazine HCl (Hydralazine 10 Mg Tablet) 10 mg PO BID PRN PRN Reason: NEEDED PER PROVIDER ORDERS Metoprolol Tartrate (Metoprolol 5 Mg/5 Ml Vial) 5 mg IVP Q6H [facility] Last Admin: 09/20/24 12:07 Dose: Not Given Multi-Ingredient Ointment (Zinc Oxide 20% Oint 30 Gm Tube) 1 applic TOP PRN PRN PRN Reason: Skin Care Last Admin: 12/20/23 06:06 Dose: 1 applic Ondansetron HCl (Ondansetron 4 Mg/2 Ml Vial) 4 mg IVP Q8H PRN PRN Reason: Nausea / Vomiting Trazodone HCl (Trazodone 50 Mg Tablet) 25 mg PO QPM PRN PRN Reason: Insomnia Vancomycin HCl (Vancomycin 125 Mg Capsule) 125 mg PO QID CATIE Last Admin: 12/20/23 13:26 Dose: 125 mg Objective - Vital Signs/Intake & Output Vital Signs: Vital Signs x48h Temp Pulse Resp BP BP Pulse Ox 12/20/23 08:40 36.8 C 87 20 154/75 H 93 12/20/23 05:53 131/58 H 12/20/23 05:27 36.7 C 86 18 131/58 H 92 Intake & Output: Intake & Output 12/17/23 12/18/23 12/19/23 12/20/23 23:59 23:59 23:59 23:59 Intake Total 5189.000 2666.667 3440 1521.667 Output Total 5 2400 4650 1300 Balance 3164.000 266.667 -1210 221.667 - Objective General Appearance: positive: No acute distress Eyes Bilateral: positive: Normal inspection ENT: positive: ENT inspection nml Neck: positive: Nml inspection Respiratory: positive: No respiratory distress, Breath sounds nml Cardiovascular: positive: Regular rate & rhythm Abdomen: positive: Non-tender, No distention Rectal: positive: Other (soft stool in the rectal vault, no visible blood. There is some rectal tenderness) Back: positive: Nml inspection Skin: positive: Other (intertrigo at bilateral groins.) Extremities: positive: No pedal edema Neurologic/Psychiatric: positive: Oriented x3 - Lab Results Fish Bones: 12/19/23 05:28 12/19/23 05:28 Other Labs: Lab Results x24hrs 12/19/23 12/19/23 12/19/23 Range/Units 21:39 16:18 11:01 POC Whole Bld Glucose 177 H 133 H 136 H (70 - 100) mg/dL ABX Reporting Has patient been on IV antibiotics over the past 48 hours?: No Sepsis Event Note (H) - Evaluation Current Stage of Sepsis: Ruled out Assessment/Plan - Problem List (1) Aspiration pneumonia Impression: Had decreased oxygen saturation required supplemental oxygen for several days. He is back down onto room air. He does not have baseline O2 needs at home. His respirations are unlabored and his lungs are clear. WBCs are normal and he is afebrile without a reported cough. His orientation is improving. And he expresses desire to get out of the hospital. I had an additional goals of care discussion with the son. And at this point he would like to pursue comfort care for his stepfather. I discontinued antibiotics for aspiration pneumonia. I have instituted comfort care orders.. Qualifiers: Laterality: right (2) Acute on chronic kidney failure Impression: He presented with an acute on chronic RAFAEL on 12/15 with a creatinine of 2.4, BUN of 104, and eGFR of 26. He has a baseline on 11/30 with a creatinine 2.0, BUN of 64, and eGFR of 32. His renal function is essentially at baseline at this time. Laboratory Tests 12/19/23 05:28 Potassium 3.7 BUN 59 H Creatinine 2.1 H Estimated GFR (MDRD) 31 L Qualifiers: Acute renal failure type: unspecified Chronic kidney disease stage: unspecified stage Qualified Code(s): N17.9 - Acute kidney failure, unspecified; N18.9 - Chronic kidney disease, unspecified (3) C. difficile colitis Impression: He is not having excessive stools. He is not having abdominal pain. He has chronic rectal pain. This is no different than his baseline. He has a stool sample is positive for C. difficile. My preference would be not to treat him for C. difficile colitis, however due to the positive result and the fact that he is living in a communal care facility he will need to be treated. I have started him on oral vancomycin since he is now able to swallow. (4) Proctitis Impression: Presented to the ED on 12/15 c/o rectal pain, CT demonstrated proctitis and high stool burden. Proctitis believed to be due to impaction. Dr. Choe, general surgery, consulted in the ED and recommended medical management with IVF, Zosyn, bowel rest, and aggressive bowel regimen recommended. We have de-escalated antibiotics. He is not having discomfort. He is refusing enemas. Rectal exam today shows soft stool he has some tenderness on rectal exam. (5) Chronic anemia Impression: Chronic severe anemia, with hbg between 7's to 8's since March of 2003. His iron was low and repleted. He has received 1 unit of packed red blood cells this admission. No indication to transfuse. Laboratory Tests 12/18/23 12/19/23 05:20 05:28 Hgb 7.0 L* 7.4 L Hct 24.1 L 25.7 L (6) Shingles Impression: Vesicular rash right hip consistent with shingles.The his lesions are dry and crusted. I have discontinued the acyclovir \ (7) Pressure ulcer Impression: He has a previously existing stage 1 sacral pressure ulcer. This is being managed with supportive care and sacral offloading. He is minimally compliant with offloading and rolls onto back when placed on his side. We will continue supportive care. (8) Hyponatremia Impression: resolved. (9) Type 2 diabetes mellitus Impression: Selected Entries 12/18/23 12/18/23 12/18/23 16:35 18:57 21:50 Result (mg/dL) 79 78 62 12/18/23 12/18/23 12/18/23 21:51 22:10 23:54 Result (mg/dL) 62 148 131 12/19/23 12/19/23 12/19/23 06:00 11:05 16:30 Result (mg/dL) 95 136 133 12/19/23 16:44 Result (mg/dL) 133 Because this he has not had any additional low blood sugars. I have discontinue d insulin and blood sugar checks because I do not think he is at risk of hypoglycemia. Given his comfort care status we will not treat his diabetes at this time. Qualifiers: (10) Hx of coronary artery disease Impression: Hx of of CAD, most recent ECHO 12/04/2022 shows EF 55 to 60%. I have discontinued blood pressure medication, as not needed on comfort care. Selected Entries 12/20/23 12/20/23 08:40 12:07 Blood Pressure 119/58 L Blood Pressure 154/75 H [Right Brachial artery]
[2023-12-20] MEDS: hydrOXYzine PAMOATE 25 MG CAPSULE PO PRN (09:11)
[2023-12-20] MEDS: LORazepam 2 MG/ML VIAL IVP PRN ×2 (11:40→14:35)
[2023-12-20] MEDS ORDERED: HALOPERIDOL 5 MG/ML VIAL IVP PRN (11:48)
[2023-12-20] MEDS: VANCOMYCIN 125 MG CAPSULE PO SCH (13:26)
--- NOTE | 2023-12-20 16:22 | PROVIDER PROGRESS NOTE ---
Progress Note Pt seen and examined. Met w/son at bedside. Known to me from prior hospice admission. Son expresses desire to bring his dad back onto hospice service and expressed to care mgmt he wanted to use Hospice again. [facility], met w/son at bedside to discuss admission. Pt on comfort care at this time. Reported vanco allergy (no accompanying documentation; son unaware of allergy). Test dose to be given. Will monitor for side effects.
[2023-12-20] MEDS: SODIUM CHLORIDE FLUSH 0.9% 10 ML SYRINGE IVP PRN (21:41)
[2023-12-21 08:07] VITALS: BP 138/63; O2SAT 90
--- NOTE | 2023-12-21 11:37 | PROVIDER PROGRESS NOTE ---
Subjective - Prog Note Date Prog Note Date: 12/21/23 Prog Note Time: 11:35 - Subjective Subjective: Has been intermittently awaken able to swallow. Has missed several doses of p.o. vancomycin due to to sedation. When he is awake he is agitated. This mo rning was able to take oral medication and then was given Ativan so that he was more comfortable. Also received a bath this morning. At this time he is nonverbal and appears comfortable. Current Medications - Current Medications Current Medications: Medications Calamine (Calamine/Zinc Oxide 177 Ml Bottle) 1 applic TOP PRN PRN PRN Reason: SKIN CARE Last Admin: 12/18/23 06:49 Dose: 1 applic Diclofenac Sodium (Diclofenac Sodium 1% Gel 50 Gm Tube) 1 gm TOP Q8HR PRN PRN Reason: PAIN 1-4 Glycopyrrolate (Glycopyrrolate 1 Mg/5 Ml Vial) 0.2 mg SUBQ Q4H PRN PRN Reason: Excessive secretions Haloperidol (Haloperidol 5 Mg/Ml Vial) 1 mg IVP Q6H PRN PRN Reason: Agitation Albuterol (Albuterol Neb 2.5 Mg/3 Ml) 2.5 mg INH RTQ4H PRN PRN Reason: Shortness of Air/Wheezing Hydralazine HCl (Hydralazine 10 Mg Tablet) 10 mg PO BID PRN PRN Reason: NEEDED PER PROVIDER ORDERS Hydromorphone HCl (Hydromorphone 0.5 Mg/0.5 Ml Syringe) 0.5 mg IVP Q2H PRN PRN Reason: Severe Pain (Level 7-10) Last Admin: 12/21/23 10:35 Dose: 0.5 mg Hydroxyzine Pamoate (Hydroxyzine Pamoate 25 Mg Capsule) 25 mg PO Q6H PRN PRN Reason: ITCHING Last Admin: 12/20/23 09:11 Dose: 25 mg Lorazepam (Lorazepam 2 Mg/Ml Vial) 2 mg IVP Q2H PRN PRN Reason: Anxiety/Agitation Last Admin: 12/21/23 06:52 Dose: 2 mg Multi-Ingredient Ointment (Zinc Oxide 20% Oint 30 Gm Tube) 1 applic TOP PRN PRN PRN Reason: Skin Care Last Admin: 12/21/23 03:01 Dose: 1 applic Ondansetron HCl (Ondansetron 4 Mg/2 Ml Vial) 4 mg IVP Q8H PRN PRN Reason: Nausea / Vomiting Sodium Biphosphate/Sodium Phosphate (Saline Enema 133 Ml Bottle) 133 ml RC Q8H PRN PRN Reason: Constipation Trazodone HCl (Trazodone 50 Mg Tablet) 25 mg PO QPM PRN PRN Reason: Insomnia Vancomycin HCl (Vancomycin 125 Mg Capsule) 125 mg PO QID CATIE Last Admin: 12/21/23 10:34 Dose: 125 mg Zinc Oxide (Cod Liver Oil/Zinc Oxide 113 Gm Tube) 113 gm TOP PRN PRN PRN Reason: Skin Care Objective - Vital Signs/Intake & Output Vital Signs: Vital Signs x48h Temp Pulse Resp BP Pulse Ox O2 Flow Rate 12/21/23 08:02 36.6 C 86 20 138/63 H 90 L 0 Intake & Output: Intake & Output 12/18/23 12/19/23 12/20/23 12/21/23 23:59 23:59 23:59 23:59 Intake Total 2666.667 3440 3091.667 Output Total 2400 4650 3950 400 Balance 266.667 -1210 -858.333 -400 - Objective General Appearance: positive: No acute distress Eyes Bilateral: positive: Normal inspection ENT: positive: ENT inspection nml Neck: positive: Nml inspection Respiratory: positive: Chest non-tender, No respiratory distress, Rhonchi (occas ional, coarse) Cardiovascular: positive: Regular rate & rhythm Abdomen: positive: Non-tender Skin: positive: Color nml Extremities: positive: No pedal edema, Other (right BKA) Neurologic/Psychiatric: positive: Disoriented to place, Disoriented to time (Today, he arrouses to touch, and mumbles. does not interact with me), Slurred/abnml speech - Lab Results Fish Bones: 12/19/23 05:28 12/19/23 05:28 ABX Reporting Has patient been on IV antibiotics over the past 48 hours?: No Sepsis Event Note (H) - Evaluation Current Stage of Sepsis: Ruled out Assessment/Plan - Problem List (1) Aspiration pneumonia Impression: Had decreased oxygen saturation required supplemental oxygen for several days. He is back down onto room air. He does not have baseline O2 needs at home. His respirations are unlabored and his lungs are with occasional rhonchi. I have not checked labs on this patient. I have instituted comfort care orders. Would initiate oxygen as needed for comfort. He has gone as low at 90%RA, but seems tolerant of this. Qualifiers: Laterality: right (2) Acute on chronic kidney failure Impression: He presented with an acute on chronic RAFAEL on 12/15 with a creatinine of 2.4, BUN of 104, and eGFR of 26. He has a baseline on 11/30 with a creatinine 2.0, BUN of 64, and eGFR of 32. His renal function was essentially at baseline at the time comfort care orders were instituted. Laboratory Tests 12/19/23 05:28 Potassium 3.7 BUN 59 H Creatinine 2.1 H Estimated GFR (MDRD) 31 L Qualifiers: Acute renal failure type: unspecified Chronic kidney disease stage: un specified stage Qualified Code(s): N17.9 - Acute kidney failure, unspecified; N18.9 - Chronic kidney disease, unspecified (3) C. difficile colitis Impression: He is not having excessive stools. He is not having abdominal pain. He has chronic rectal pain. This is no different than his baseline. He has a stool sample is positive for C. difficile. My preference would be not to treat him for C. difficile colitis, however due to the positive result and the fact that he is living in a communal care facility he will need to be treated. I have started him on oral vancomycin. He is intermittently able to swallow and he is getting the medication when possible. (4) Proctitis Impression: Presented to the ED on 12/15 c/o rectal pain, CT demonstrated proctitis and high stool burden. Proctitis believed to be due to impaction. Dr. Choe, general surgery, consulted in the ED and recommended medical management with IVF, Zosyn, bowel rest, and aggressive bowel regimen recommended. We have de-escalated antibiotics. He is not having discomfort. He is refusing enemas. (5) Chronic anemia Impression: Chronic severe anemia, with hbg between 7's to 8's since March of 2003. His iron was low and repleted. He has received 1 unit of packed red blood cells this admission. No indication to transfuse. I am no longer checking labs as he is comfort care. Laboratory Tests 12/18/23 12/19/23 05:20 05:28 Hgb 7.0 L* 7.4 L Hct 24.1 L 25.7 L (6) Shingles Impression: Vesicular rash right hip consistent with shingles.The his lesions are dry and crusted. I have discontinued the acyclovir \ (7) Pressure ulcer Impression: He has a previously existing stage 1 sacral pressure ulcer. This is being managed with supportive care and sacral offloading. He is minimally compliant with offloading and rolls onto back when placed on his side. We will continue supportive care. (8) Hyponatremia Impression: resolved at the time that I stopped checking labs due to comfort care status. (9) Type 2 diabetes mellitus Impression: Selected Entries 12/18/23 12/18/23 12/18/23 16:35 18:57 21:50 Result (mg/dL) 79 78 62 12/18/23 12/18/23 12/18/23 21:51 22:10 23:54 Result (mg/dL) 62 148 131 12/19/23 12/19/23 12/19/23 06:00 11:05 16:30 Result (mg/dL) 95 136 133 12/19/23 16:44 Result (mg/dL) 133 he has not had any additional low blood sugars. I have discontinued insulin and blood sugar checks because I do not think he is at risk of hypoglycemia. Given his comfort care status we will not treat his diabetes at this time. Qualifiers: (10) Hx of coronary artery disease Impression: Hx of of CAD, most recent ECHO 12/04/2022 shows EF 55 to 60%. I have discontinued blood pressure medication, as not needed on comfort care. Selected Entries 12/20/23 12/20/23 08:40 12:07 Blood Pressure 119/58 L Blood Pressure 154/75 H [Right Brachial artery] Disposition: This is avoidable day 2. Plans are to admit patient to hospice as an outpatient on 12/24/2023. He was to discharge back to [facility] with comfort care orders and meds supplied by hospitalist service. However, patient has not had rent paid at [facility] and they will not accept him back until rent is up-to-date. Earlier in the day it was reported that son had not gotten payment to [facility] and therefore patient could not be accepted back however this changed as the day progressed and we were able to transition him back to [facility] on comfort care and he will be admitted to hospice in several days.
--- NOTE | 2023-12-21 13:32 | PROVIDER PROGRESS NOTE ---
Progress Note Pt seen and examined. Tolerated vancomycin w/o side effects. One BM today, described as scant. He is sedate and comfortable currently. [facility] has declined taking him back today. Continues on comfort care.
--- NOTE | 2023-12-21 14:50 | Discharge Plan ---
Discharge Plan Problem Reviewed?: Yes Disposition: 50 Hospice/Home DC/Xfer Condition: Fair Prescriptions: LORazepam [Ativan] 0.5 mg PO Q6H PRN #10 tablet PRN Reason: Anxiety LORazepam [Ativan] 0.5 mg PO Q6H PRN #10 tablet PRN Reason: Anxiety Calamine/Zinc Oxide [Calamine Lotion] 1 applic TOP PRN PRN #177 ml PRN Reason: SKIN CARE Cod Liver Oil/Zinc Oxide [Desitin] 113 gm TOP PRN PRN #113 gm PRN Reason: Skin Care Bisacodyl Supp [Dulcolax Supp] 10 mg TN DAILY PRN #3 supp PRN Reason: Constipation Bisacodyl Supp [Dulcolax Supp] 10 mg TN DAILY PRN #3 supp PRN Reason: Constipation Morphine Sulfate 5 mg PO Q4H PRN #30 ml PRN Reason: Moderate to Severe pain. Morphine Sulfate 5 mg PO Q4H PRN #30 ml PRN Reason: Moderate to Severe pain. Senna [Senokot] 8.6 mg PO BID PRN #10 tablet PRN Reason: Constipation Senna [Senokot] 8.6 mg PO BID PRN #10 tablet PRN Reason: Constipation Vancomycin [Vancocin] 125 mg PO QID #40 cap hydrOXYzine PAMOATE [Vistaril] 25 mg PO Q6H PRN #120 cap PRN Reason: Itching OLANZapine ODT [Zyprexa Odt] 5 mg TL BID PRN #10 tablet PRN Reason: Nausea / Vomiting OLANZapine ODT [Zyprexa Odt] 5 mg TL BID PRN #10 tablet PRN Reason: Nausea / Vomiting Diet: Soft Activity Restrictions: No Restrictions Shower Restrictions: No Driving Restrictions: Yes Assistance Devices: Other (bed bound) Weight Bearing: bed bound Health Concerns: 1) Aspiration pneumonia Impression: Had decreased oxygen saturation required supplemental oxygen for several days. He is back down onto room air. He does not have baseline O2 needs at home. His respirations are unlabored and his lungs are with occasional rhonchi. I have not checked labs on this patient. I have instituted comfort care orders. Would initiate oxygen as needed for comfort. He has gone as low at 90%RA, but seems tolerant of this. Qualifiers: Laterality: right (2) Acute on chronic kidney failure Impression: He presented with an acute on chronic RAFAEL on 12/15 with a creatinine of 2.4, BUN of 104, and eGFR of 26. He has a baseline on 11/30 with a creatinine 2.0, BUN of 64, and eGFR of 32. His renal function was essentially at baseline at the time comfort care orders were instituted. Laboratory Tests 12/19/23 05:28 Potassium 3.7 BUN 59 H Creatinine 2.1 H Estimated GFR (MDRD) 31 L Qualifiers: Acute renal failure type: unspecified Chronic kidney disease stage: unspecified stage Qualified Code(s): N17.9 - Acute kidney failure, unspecified; N18.9 - Chronic kidney disease, unspecified (3) C. difficile colitis Impression: He is not having excessive stools. He is not having abdominal pain. He has chronic rectal pain. This is no different than his baseline. He has a stool sample that is positive for C. difficile. My preference would be not to treat him for C. difficile colitis, however due to the positive result and the fact that he is living in a comm[facility] care facility he will need to be treated. I have started him on oral vancomycin. He is intermittently able to swallow and he is getting the medication when possible. (4) Proctitis Impression: Presented to the ED on 12/15 c/o rectal pain, CT demonstrated proctitis and high stool burden. Proctitis believed to be due to impaction. Dr. Choe, general surgery, consulted in the ED and recommended medical management with IVF, Zosyn, bowel rest, and aggressive bowel regimen recommended. We have de-escalated antibiotics. He is not having discomfort. He is refusing enemas. (5) Chronic anemia Impression: Chronic severe anemia, with hbg between 7's to 8's since March of 2003. His iron was low and repleted. He has received 1 unit of packed red blood cells this admission. No indication to transfuse. I am no longer checking labs as he is comfort care. Laboratory Tests 12/18/23 12/19/23 05:20 05:28 Hgb 7.0 L* 7.4 L Hct 24.1 L 25.7 L (6) Shingles Impression: Vesicular rash right hip consistent with shingles.The his lesions are dry and crusted. I have discontinued the acyclovir (7) Pressure ulcer Impression: He has a previously existing stage 1 sacral pressure ulcer. This is being managed with supportive care and sacral offloading. He is minimally compliant with offloading and rolls onto back when placed on his side. continue supportive care. (8) Hyponatremia Impression: resolved at the time that I stopped checking labs due to comfort care status. (9) Type 2 diabetes mellitus Impression: Selected Entries 12/18/23 12/18/23 12/18/23 16:35 18:57 21:50 Result (mg/dL) 79 78 62 12/18/23 12/18/23 12/18/23 21:51 22:10 23:54 Result (mg/dL) 62 148 131 12/19/23 12/19/23 12/19/23 06:00 11:05 16:30 Result (mg/dL) 95 136 133 12/19/23 16:44 Result (mg/dL) 133 he has not had any additional low blood sugars. I have discontinued insulin and blood sugar checks because I do not think he is at risk of hypoglycemia. Given his comfort care status we will not treat his diabetes at this time. Qualifiers: (10) Hx of coronary artery disease Impression: Hx of of CAD, most recent ECHO 12/04/2022 shows EF 55 to 60%. I have discontinued blood pressure medication, as not needed on comfort care. Selected Entries 12/20/23 12/20/23 08:40 12:07 Blood Pressure 119/58 L Blood Pressure 154/75 H [Right Brachial artery] (11) Comfort care status Needs met management of his agitation and pain. Will use Roxanol orally for pain, for agitation will use Vistaril, Ativan and olanzapine. Comfort medic ations have been ordered and sent to the pharmacy of record. Plan is for him to be admitted to hospice of [facility] on 12/24/2023. Care Goals: comfort Follow-Up Care: Hospice No Smoking: If you smoke, Please STOP! Call for help. Follow-up with: Karen Donohue MD [Provider Admit Priv/Credential] -
--- NOTE | 2023-12-21 14:59 | DISCHARGE SUMMARY ---
"Discharge Summary Admit Date: 12/16/23 Discharge Date: 12/21/23 Discharging Provider: Lizy Keyes PA-C Primary Care Provider: Dr Donohue Code Status: Do Not Attempt Resuscitation Condition at Discharge: Fair Discharge Disposition: 50 Hospice/Home DC/Xfer - DIAGNOSES Admission Diagnoses: Proctitis Acute on chronic kidney failure Chronic anemia Sacral pressure sore, stage I History of coronary artery disease Diabetes mellitus type 2 Discharge Diagnoses with Status of Each Condition: 1) Aspiration pneumonia Impression: Had decreased oxygen saturation required supplemental oxygen for several days. He is back down onto room air. He does not have baseline O2 needs at home. His respirations are unlabored and his lungs are with occasional rhonchi. I have not checked labs on this patient. I have instituted comfort care orders. Would initiate oxygen as needed for comfort. He has gone as low at 90%RA, but seems tolerant of this. Qualifiers: Laterality: right (2) Acute on chronic kidney failure Impression: He presented with an acute on chronic RAFAEL on 12/15 with a creatinine of 2.4, BUN of 104, and eGFR of 26. He has a baseline on 11/30 with a creatinine 2.0, BUN of 64, and eGFR of 32. His renal function was essentially at baseline at the time comfort care orders were instituted. Laboratory Tests 12/19/23 05:28 Potassium 3.7 BUN 59 H Creatinine 2.1 H Estimated GFR (MDRD) 31 L Qualifiers: Acute renal failure type: unspecified Chronic kidney disease stage: unspecified stage Qualified Code(s): N17.9 - Acute kidney failure, unspecified; N18.9 - Chronic kidney disease, unspecified (3) C. difficile colitis Impression: He is not having excessive stools. He is not having abdominal pain. He has chronic rectal pain. This is no different than his baseline. He has a stool sample that is positive for C. difficile. My preference would be not to treat him for C. difficile colitis, however due to the positive result and the fact that he is living in a communal care facility he will need to be treated. I have started him on oral vancomycin. He is intermittently able to swallow and he is getting the medication when possible. (4) Proctitis Impression: Presented to the ED on 12/15 c/o rectal pain, CT demonstrated proctitis and high stool burden. Proctitis believed to be due to impaction. Dr. Choe, general surgery, consulted in the ED and recommended medical management with IVF, Zosyn, bowel rest, and aggressive bowel regimen recommended. We have de-escalated antibiotics. He is not having discomfort. He is refusing enemas. (5) Chronic anemia Impression: Chronic severe anemia, with hbg between 7's to 8's since March of 2003. His iron was low and repleted. He has received 1 unit of packed red blood cells this admission. No indication to transfuse. I am no longer checking labs as he is comfort care. Laboratory Tests 12/18/23 12/19/23 05:20 05:28 Hgb 7.0 L* 7.4 L Hct 24.1 L 25.7 L (6) Shingles Impression: Vesicular rash right hip consistent with shingles.The his lesions are dry and crusted. I have discontinued the acyclovir (7) Pressure ulcer Impression: He has a previously existing stage 1 sacral pressure ulcer. This is being managed with supportive care and sacral offloading. He is minimally compliant with offloading and rolls onto back when placed on his side. continue supportive care. (8) Hyponatremia Impression: resolved at the time that I stopped checking labs due to comfort care status. (9) Type 2 diabetes mellitus Impression: Selected Entries 12/18/23 12/18/23 12/18/23 16:35 18:57 21:50 Result (mg/dL) 79 78 62 12/18/23 12/18/23 12/18/23 21:51 22:10 23:54 Result (mg/dL) 62 148 131 12/19/23 12/19/23 12/19/23 06:00 11:05 16:30 Result (mg/dL) 95 136 133 12/19/23 16:44 Result (mg/dL) 133 he has not had any additional low blood sugars. I have discontinued insulin and blood sugar checks because I do not think he is at risk of hypoglycemia. Given his comfort care status we will not treat his diabetes at this time. Qualifiers: (10) Hx of coronary artery disease Impression: Hx of of CAD, most recent ECHO 12/04/2022 shows EF 55 to 60%. I have discontinued blood pressure medication, as not needed on comfort care. Selected Entries 12/20/23 12/20/23 08:40 12:07 Blood Pressure 119/58 L Blood Pressure 154/75 H [Right Brachial artery] (11) Comfort care status Needs met management of his agitation and pain. Will use Roxanol orally for pain, for agitation will use Vistaril, Ativan and olanzapine. Comfort medications have been ordered and sent to the pharmacy of record. Plan is for him to be admitted to hospice of [facility] on 12/24/2023. - HPI History of Present Illness: From admission H&P: 78-year-old male history of type 2 diabetes, PAD, CAD, chronic Mahan presented to the ER with 3 days of severe rectal pain. Reports he has never had this before. Denies fever, chills In the ER CT was performed which showed evidence of proctitis. Lab work revealed RAFAEL on top of CKD as well as worsening of chronic edema. Surgery was consulted by ER provider, and decision was made to admit patient for bowel rest, antibiotics, fluid resuscitation - CONSULTS | PROCEDURES Consultations: Surgery, Dr Choe, no intervention Procedures: Brain MRI: Limited exam due to motion artifact no large stroke seen CT head: Unremarkable CT chest: Moderately large dense pneumonia, right lung, right lower lobe and a portion of the right upper lobe Small associated right pleural effusion, minimal left pleural effusion Cirrhosis, splenomegaly consistent with portal venous hypertension and mild upper abdominal ascites Cholelithiasis Chest x-ray: Cardiomegaly, moderate vascular congestion and right pleural effusion Abdomen/pelvis CT: Finding concerning for infectious or inflammatory sigmoid colitis and proctitis. No abscess. No free air Distended gallbladder with cholelithiasis Mild hepatosplenomegaly Stable hypodensity of the pancreatic head - HOSPITAL COURSE Hospital Course: Mr. Zavala was admitted with agitation and 3 days of severe rectal pain. He was seen by the general surgeon who performed a manual disimpaction and recommended starting the patient on Zosyn. He was started on aggressive bowel regimen and subsequently developed some loose stools. Therefore samples were sent and there was a PCR positive stool for C. difficile. Otherwise he has a chronic stage I sacral decubitus ulcer with a new vesicular rash on the right hip. He was started on acyclovir the rash crusted over nicely. Local wound care was employed for his sacral irritation. He continued to have his chronic rectal pain. However given the C. difficile and at the recommendation of the surgeon Zosyn was discontinued. However he then developed hypoxia CT was po sitive for an aspiration pneumonia notes around this time that he also developed difficulty swallowing. Complete medical records were not available at the time of admission. It then became apparent the patient had an untreated colon cancer which per records is 40 cm from the anal verge and about 9 months prior had a POLST which stated DNR and comfort treatment. Updated advance care planning discussion was held with his crowon Ryan who is his POA. Decision was made to transfer Mr. Zavala to comfort care. He remains asymptomatic with a C. difficile, however given his living environment in a communal place I would recommend that he be treated for his C. difficile with oral vancomycin. He has been able to take this medication. He lists a vancomycin allergy on his chart but has tolerated this well. His agitation and discomfort have been managed with a combination of Ativan and pain medication. He will be discharged to his previous living facility and in 3 days will be admitted to hospice of [facility] under comfort care. Comfort care medications were sent to local pharmacy in the interim. - ALLERGIES Allergies/Adverse Reactions: Allergies Allergy/AdvReac Type Severity Reaction Status Date / Time pregabalin [From Lyrica] Allergy Intermediate unknown Verified 12/16/23 07:19 simvastatin [From Zocor] Allergy Intermediate Nausea Verified 12/16/23 07:19 sulfamethoxazole Allergy Intermediate unknown Verified 12/16/23 07:19 [From Septra] trimethoprim [From Septra] Allergy Intermediate unknown Verified 12/16/23 07:19 levofloxacin Allergy Unknown Verified 12/16/23 07:19 lisinopril Allergy Unknown Verified 12/16/23 07:19 tetracycline [Tetracycline] Allergy Rash Verified 12/16/23 07:19 vancomycin Allergy Unknown Verified 12/16/23 07:19 - MEDICATIONS Home Medications: Ambulatory Orders Medication Instructions Recorded Confirmed Diclofenac Sodium [Arthritis Pain] 1 applic TOP Q8HR PRN 02/07/23 12/16/23 Ondansetron Odt [Zofran Odt] 4 mg TL Q6H PRN #10 tablet 02/23/23 12/16/23 Ammonium Lactate 1 appful TOP BID 02/24/23 12/16/23 Fluticasone [Flonase] 2 spray MAN DAILY 09/01/23 12/16/23 Acetaminophen [Tylenol] 500 mg PO Q4HR PRN 09/16/23 12/16/23 Albuterol Sulfate [Proair 2 puffs IH Q4HR PRN 09/16/23 12/16/23 Respiclick] Gabapentin [Neurontin] 300 mg PO TID 12/16/23 12/16/23 Miconazole Nitrate/Zinc Ox/Pet 1 applic TOP BID 12/16/23 12/16/23 [[id number]-[id number] 0.25-15%] Omeprazole [PriLOSEC] 20 mg PO DAILY 12/16/23 12/16/23 Bisacodyl Supp [Dulcolax Supp] 10 mg ID DAILY PRN #3 supp 12/21/23 Calamine/Zinc Oxide [Calamine 1 applic TOP PRN PRN #177 ml 12/21/23 Lotion] Cod Liver Oil/Zinc Oxide [Desitin] 113 gm TOP PRN PRN #113 gm 12/21/23 LORazepam [Ativan] 0.5 mg PO Q6H PRN #10 tablet 12/21/23 Morphine Sulfate 5 mg PO Q4H PRN #30 ml 12/21/23 OLANZapine ODT [Zyprexa Odt] 5 mg TL BID PRN #10 tablet 12/21/23 Senna [Senokot] 8.6 mg PO BID PRN #10 tablet 12/21/23 Vancomycin [Vancocin] 125 mg PO QID #40 cap 12/21/23 Zinc Oxide 20% Oint [Zinc Oxide] 1 applic TOP PRN PRN each 12/21/23 hydrOXYzine PAMOATE [Vistaril] 25 mg PO Q6H PRN #120 cap 12/21/23 traZODone [Desyrel] 25 mg PO QPM PRN tab 12/21/23 - PHYSICAL EXAM AT DISCHARGE General Appearance: positive: Mild distress Eyes Bilateral: positive: Normal inspection ENT: positive: ENT inspection nml Neck: positive: Nml inspection Respiratory: positive: No respiratory distress, Rhonchi Cardiovascular: positive: Regular rate & rhythm Abdomen: positive: Non-tender Rectal: positive: Tenderness (some discomfort on LISANDRA, soft stool is present) Extremities: positive: Non-tender, Other (right BKA) Neurologic/Psychiatric: positive: Disoriented to place, Disoriented to time, Other (intermittently oriented. ) - LABS Result Diagrams: 12/19/23 05:28 12/19/23 05:28 - SEPSIS Current Stage of Sepsis: Ruled out - FOLLOW UP Follow Up: hospice of [facility] - TIME SPENT Time Spent in Discharge (Minutes): 45"
== END 2023-12-21 16:05 | disposition hospice, home (50) | DRG 393 ==
LOC: EDUNIT# → ED 07:10 → MS2 10:47
PROVIDERS: ADMIT Nurse Practitioner Acute Care; ATTEND Physician Assistant Medical
PROC: 30233N1 Transfusion of Nonautologous Red Blood Cells into Peripheral Vein, Percutaneous Approach (ICD-10-PCS; principal; 2023-12-16)
DX: K62.89 Other specified diseases of anus and rectum (principal); J69.0 Pneumonitis due to inhalation of food and vomit; D64.9 Anemia, unspecified; N17.9 Acute kidney failure, unspecified; A04.72 Enterocolitis due to Clostridium difficile, not specified as recurrent; B02.8 Zoster with other complications; E87.1 Hypo-osmolality and hyponatremia; C18.9 Malignant neoplasm of colon, unspecified; N18.9 Chronic kidney disease, unspecified; D63.1 Anemia in chronic kidney disease; L89.151 Pressure ulcer of sacral region, stage 1; I25.10 Atherosclerotic heart disease of native coronary artery without angina pectoris; E11.22 Type 2 diabetes mellitus with diabetic chronic kidney disease; G89.29 Other chronic pain; K56.41 Fecal impaction; E11.51 Type 2 diabetes mellitus with diabetic peripheral angiopathy without gangrene; J44.9 Chronic obstructive pulmonary disease, unspecified; E11.42 Type 2 diabetes mellitus with diabetic polyneuropathy; M54.9 Dorsalgia, unspecified; R13.10 Dysphagia, unspecified; R29.810 Facial weakness; Z51.5 Encounter for palliative care; Z66 Do not resuscitate; Z79.899 Other long term (current) drug therapy; Z82.49 Family history of ischemic heart disease and other diseases of the circulatory system; Z83.3 Family history of diabetes mellitus; Z87.891 Personal history of nicotine dependence; Z88.1 Allergy status to other antibiotic agents; Z95.5 Presence of coronary angioplasty implant and graft
CPT/HCPCS: 36415; 70450; 70551; 71045; 71250; 74176; 80048; 80053; 82140; 82607; 83036; 83540; 84466; 85014; 85018; 85025; 85045; 86850; 86900; 86901; 86920; 87507; 96365; 96375; 96376; 99284; 99285; A9270; J0133; J1170; J1750; J1815; J2060; J3590; J7120; J8499; P9016; 85379

== ENCOUNTER 2023-12-21 16:08 | Outpatient (CLI) | payer MEDICARE, OTHER | END 2023-12-21 23:59 | disposition home or self-care (01) | LOC: EMS 16:08 | PROVIDERS: ATTEND Physician Assistant Medical | DX: R40.20 Unspecified coma (principal); B96.89 Other specified bacterial agents as the cause of diseases classified elsewhere; B02.9 Zoster without complications; J69.0 Pneumonitis due to inhalation of food and vomit; Z74.01 Bed confinement status; Z66 Do not resuscitate | CPT/HCPCS: A0425; A0428 ==

== ENCOUNTER 2023-12-22 04:05 | Outpatient (CLI) | payer MEDICARE, OTHER | END 2023-12-22 23:59 | disposition EMS.NT | LOC: EMS 04:05 | DX: Z03.89 Encounter for observation for other suspected diseases and conditions ruled out (principal) ==

== ENCOUNTER 2023-12-22 06:59 | Outpatient (CLI) | payer MEDICARE, OTHER | END 2023-12-22 23:59 | disposition critical access hospital (66) | LOC: EMS 06:59 | DX: R41.82 Altered mental status, unspecified (principal); S81.812A Laceration without foreign body, left lower leg, initial encounter | CPT/HCPCS: A0425; A0429 ==

== ENCOUNTER 2023-12-22 07:22 | Emergency (ER) | payer MEDICARE, OTHER ==
--- NOTE | 2023-12-22 07:46 | ED Physician Documentation ---
PD HPI ALTERED MENTAL STATUS - Stated complaint Stated Complaint: ALOC - Chief complaint Chief Complaint: Neuro - History obtained from History obtained from: EMS - Additional information Additional information: I admitted this gentleman on the of this month for proctitis with RAFEAL on CKD. He was discharged yesterday back to [facility]. He has a history of right BKA, more recently C. difficile, aspiration pneumonitis, chronic sacral pressure ulcer, coronary disease, type 2 diabetes. Reportedly became altered and combative overnight and all of the history is from EMS and review of prior d ischarge summary as the patient is unable to cooperate with history. PD PAST MEDICAL HISTORY - Past Medical History Cardiovascular: Hypertension, High cholesterol, Coronary artery disease, Peripheral Vascular Disease, [place] Respiratory: COPD, Shortness of breath Neuro: Peripheral neuropathy Endocrine/Autoimmune: Type 2 diabetes GI: GI bleed : Nocturia, Frequency, Kidney stones Psych: Anxiety, Panic attacks Musculoskeletal: Fibromyalgia, Chronic back pain - Past Surgical History Past Surgical History: Yes Ortho: Amputation Cardiovascular: Coronary stent HEENT: Cataracts - Present Medications Home Medications: Ambulatory Orders Medication Instructions Recorded Confirmed Diclofenac Sodium [Arthritis Pain] 1 applic TOP Q8HR PRN 02/07/23 12/22/23 Ondansetron Odt [Zofran Odt] 4 mg TL Q6H PRN #10 tablet 02/23/23 12/22/23 Ammonium Lactate 1 appful TOP BID 02/24/23 12/22/23 Fluticasone [Flonase] 2 spray MAN DAILY 09/01/23 12/22/23 Acetaminophen [Tylenol] 500 mg PO Q4HR PRN 09/16/23 12/22/23 Albuterol Sulfate [Proair 2 puffs IH Q4HR PRN 09/16/23 12/22/23 Respiclick] Gabapentin [Neurontin] 300 mg PO TID 12/16/23 12/22/23 Omeprazole [PriLOSEC] 20 mg PO DAILY 12/16/23 12/22/23 Calamine/Zinc Oxide [Calamine 1 applic TOP PRN PRN #177 ml 12/21/23 12/22/23 Lotion] Senna [Senokot] 8.6 mg PO BID PRN #10 tablet 12/21/23 12/22/23 Zinc Oxide 20% Oint [Zinc Oxide] 1 applic TOP PRN PRN each 12/21/23 12/22/23 Bisacodyl Supp [Dulcolax Supp] 10 mg ME DAILY PRN #3 supp 12/22/23 Bisacodyl Supp [Dulcolax Supp] 10 mg ME DAILY PRN #3 supp 12/22/23 Furosemide [Lasix] 40 mg PO DAILY 12/22/23 12/22/23 Insulin Glargine [Lantus Solostar] 30 unit SUBQ BID 12/22/23 12/22/23 LORazepam [Ativan] 0.5 mg PO Q6H PRN #10 tablet 12/22/23 Loratadine [Claritin] 20 mg PO DAILY 12/22/23 12/22/23 Lorazepam [Ativan] 2 mg PO Q4H #20 tablet 12/22/23 Lorazepam [Ativan] 2 mg PO TID #30 tablet 12/22/23 Melatonin 3 mg PO QPM 12/22/23 12/22/23 Morphine Oral Soln [Roxanol] 10 mg PO Q4H #50 ml 12/22/23 Morphine Sulfate 5 mg PO Q4H PRN #30 ml 12/22/23 Morphine Sulfate 10 mg PO QID #30 ml 12/22/23 OLANZapine ODT [Zyprexa Odt] 5 mg TL BID PRN #10 tablet 12/22/23 OLANZapine ODT [Zyprexa Odt] 5 mg TL TID #20 tablet 12/22/23 OLANZapine ODT [Zyprexa Odt] 5 mg TL TID #30 tablet 12/22/23 Senna [Senokot] 8.6 mg PO BID PRN #10 tablet 12/22/23 Senna [Senokot] 8.6 mg PO BID PRN #10 tablet 12/22/23 Spironolactone [Aldactone] 25 mg PO HS 12/22/23 12/22/23 Tamsulosin [Flomax] 0.4 mg PO HS 12/22/23 12/22/23 amLODIPine [Norvasc] 5 mg PO DAILY 12/22/23 12/22/23 carvediloL [Coreg] 6.25 mg PO BID 12/22/23 12/22/23 guaiFENesin [Guaifenesin ER] 1,200 mg PO BID 12/22/23 12/22/23 hydrALAZINE [Apresoline] 10 mg PO BID 12/22/23 12/22/23 - Allergies Allergies/Adverse Reactions: Allergies Allergy/AdvReac Type Severity Reaction Status Date / Time pregabalin [From Lyrica] Allergy Intermediate unknown Verified 12/22/23 07:33 simvastatin [From Zocor] Allergy Intermediate Nausea Verified 12/22/23 07:33 sulfamethoxazole Allergy Intermediate unknown Verified 12/22/23 07:33 [From Septra] trimethoprim [From Septra] Allergy Intermediate unknown Verified 12/22/23 07:33 levofloxacin Allergy Unknown Verified 12/22/23 07:33 lisinopril Allergy Unknown Verified 12/22/23 07:33 tetracycline [Tetracycline] Allergy Rash Verified 12/22/23 07:33 vancomycin Allergy Unknown Verified 12/22/23 07:33 - Social History Does the pt smoke?: No Smoking Status: Never smoker Does the pt drink ETOH?: No Does the pt have substance abuse?: No - Immunizations Immunizations are current?: Yes - POLST Patient has POLST: No POLST Status: Full Code PD ED PE NORMAL - Vitals Vital signs reviewed: Yes - General General: Other (Moaning and screaming but really not cooperative and only saying gibberish.) - HEENT HEENT: PERRL, EOMI, Other (Very dry mucous membranes) - Neck Neck: Supple, no meningeal sign, No bony TTP - Cardiac Cardiac: RRR, No murmur - Respiratory Respiratory: No respiratory distress, Clear bilaterally - Abdomen Abdomen: Other (Tender in the right lower quadrant) - Back Back: No CVA TTP, No spinal TTP - Derm Derm: Normal color, Warm and dry - Extremities Extremities: Other (Status post right BKA and he is missing his left large toenail from reportedly his agitation this morning.) - Neuro Eye Opening: Spontaneous Motor: Localizes to Pain Verbal: Inappropriate GCS Score: 12 Results - Vitals Vitals: Vital Signs - 24 hr 12/22/23 12/22/23 12/22/23 07:33 08:02 09:19 Temperature 36.5 C 36.6 C Heart Rate 100 101 H 99 Respiratory 18 14 20 Rate Blood Pressure 174/97 H 167/87 H 148/99 H O2 Saturation 97 96 96 09/22/24 09/22/24 09/22/24 09:30 10:02 11:15 Temperature Heart Rate 98 100 95 Respiratory 19 26 H 14 Rate Blood Pressure 165/83 H 162/85 H 140/65 H O2 Saturation 95 95 95 Oxygen O2 Source Room air - EKG (time done) 0845 EKG releavant findings:: EKG personally interpreted by author of this note. Relevant findings are: Rate: Rate (enter#) (101) Rhythm: Sinus tachycardia Parks: Normal Intervals: Normal ME QRS: Normal Ischemia: Non specific changes. No: ST elevation c/w ischemia - Labs Labs: Laboratory Tests 12/22/23 12/22/23 12/22/23 07:55 07:55 07:55 WBC 12.5 H RBC 3.74 L Hgb 8.8 L Hct 30.6 L MCV 81.8 MCH 23.5 L MCHC 28.8 L RDW 19.3 H Plt Count 91 L MPV 9.2 Neut # (Auto) 10.0 H Lymph # (Auto) 1.3 L [place] # (Auto) 0.9 Eos # (Auto) 0.0 Baso # (Auto) 0.1 Absolute Nucleated RBC 0.00 Nucleated RBC % 0.0 Manual Slide Review Indicated WBC Morphology NORMAL APPEARANCE Platelet Estimate DECREASED (<130,000) Platelet Morphology NORMAL APPEARANCE RBC Morph Micro Appear 3+ ANISOCYTOSIS Sodium 144 Potassium 3.6 Chloride 116 H Carbon Dioxide 17 L Anion Gap 11.0 BUN 21 H Creatinine 1.5 H Estimated GFR (MDRD) 45 L Glucose 265 H Lactic Acid 2.0 Calcium 9.3 Total Bilirubin 0.8 AST 17 ALT 11 Alkaline Phosphatase 90 Ammonia Total Creatine Kinase 129 Total Protein 7.9 Albumin 2.8 L Globulin 5.1 H Albumin/Globulin Ratio 0.5 L Urine Color Urine Clarity Urine pH Ur Specific [place] Urine Protein Urine Glucose (UA) Urine Ketones Urine Occult Blood Urine Nitrite Urine Bilirubin Urine Urobilinogen Ur Leukocyte Esterase Urine RBC Urine WBC Ur Squamous Epith Cells Urine Bacteria Urine Culture Comments Urine Opiates Screen Ur Buprenorphine Scrn Ur Oxycodone Screen Urine Methadone Screen Ur Barbiturates Screen Ur Tricyclics Screen Ur Phencyclidine Scrn Ur Amphetamine Screen U Methamphetamines Scrn U Benzodiazepines Scrn Urine Cocaine Screen U Cannabinoids Screen Ur Drug Screen Comment Ethyl Alcohol < 10.0 12/22/23 12/22/23 07:55 08:15 WBC RBC Hgb Hct MCV MCH MCHC RDW Plt Count MPV Neut # (Auto) Lymph # (Auto) [place] # (Auto) Eos # (Auto) Baso # (Auto) Absolute Nucleated RBC Nucleated RBC % Manual Slide Review WBC Morphology Platelet Estimate Platelet Morphology RBC Morph Micro Appear Sodium Potassium Chloride Carbon Dioxide Anion Gap BUN Creatinine Estimated GFR (MDRD) Glucose Lactic Acid Calcium Total Bilirubin AST ALT Alkaline Phosphatase Ammonia 33.3 Total Creatine Kinase Total Protein Albumin Globulin Albumin/Globulin Ratio Urine Color YELLOW Urine Clarity SL. CLOUDY Urine pH 6.0 Ur Specific [place] 1.020 Urine Protein >=300 H Urine Glucose (UA) NEGATIVE Urine Ketones 15 H Urine Occult Blood LARGE H Urine Nitrite POSITIVE H Urine Bilirubin NEGATIVE Urine Urobilinogen 0.2 (NORMAL) Ur Leukocyte Esterase SMALL H Urine RBC TNTC H Urine WBC >25 H Ur Squamous Epith Cells RARE Squamous Urine Bacteria Rare Urine Culture Comments INDICATED Urine Opiates Screen POSITIVE H Ur Buprenorphine Scrn NEGATIVE Ur Oxycodone Screen NEGATIVE Urine Methadone Screen NEGATIVE Ur Barbiturates Screen NEGATIVE Ur Tricyclics Screen NEGATIVE Ur Phencyclidine Scrn NEGATIVE Ur Amphetamine Screen NEGATIVE U Methamphetamines Scrn NEGATIVE U Benzodiazepines Scrn POSITIVE H Urine Cocaine Screen NEGATIVE U Cannabinoids Screen NEGATIVE Ur Drug Screen Comment CUTOFF CONC BELOW: Ethyl Alcohol PD Medical Decision Making - ED course ED course: 78-year-old gentleman presents with encephalopathy. Initial differential diagnosis was broad and included infection, intra-abdominal emergency, UTI, intracranial emergency. I ordered broad testing including lab work and CTs. Lab work was notable for stable significant anemia, mild leukocytosis, actually improved over usual renal function, no evidence of hepatic encephalopathy. He does have pyuria but he has a chronic indwelling Mahan catheter. No alcohol on board. I discussed the case with Dr. Donohue who is our inpatient physician and is aware of the case. She was able to give me some more detail, he is to be enrolled in hospice in 2 days and is at end-of-life. Family and patient did not want any medical interventions done other than comfort. He had gone back with prescriptions for 10 mg of morphine 4 times daily, 5 mg of Zyprexa ODT 3 times daily, and 2 mg of Ativan every 4 hours. That said these were written as needed and they had not been picked up yet. [facility] does not do as needed medications and so now the feeling is that he is in florid withdrawal. As such the CTs were canceled given my knowledge now if goals of care with plans to medicate and send back to [facility] for enrollment in hospice once his meds are available there. The daughter called me about 9 AM and was agreeable with him going back. She plans to go to the pharmacy at 10 AM and call me shortly thereafter if there was any problem. I had not heard back by 1030 so made arrangements to send him back to [facility] Subsequently the daughter called me back and noted that the hospice orders have been canceled and I reordered the meds as written and sent them to [facility]. 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 10 mg of morphine 4 times daily p.o. 2. 5 mg of Zyprexa ODT p.o. 3 times daily 3. 2 mg of Ativan p.o. every 4 hours. Forms: PCP List Discharge Date/Time: 12/22/23 11:15
[2023-12-22] MEDS: LORazepam 2 MG/ML VIAL IVP STA (07:58)
[2023-12-22 08:01] LABS: BASOPHILS # (AUTO) 0.1 10^3/uL (0.0-0.1); BASOPHILS % (AUTO) 0.4 %; EOSINOPHILS % (AUTO) 0.3 %; HCT - HEMATOCRIT 30.6 % (42.0-52.0); HGB - HEMOGLOBIN 8.8 g/dL (14.0-18.0); LYMPHOCYTES # (AUTO) 1.3 10^3/uL (1.5-3.5); LYMPHOCYTES % (AUTO) 10.1 %; MEAN CORPUSCULAR HEMOGLOBIN 23.5 pg (27.0-31.0); MEAN CORPUSCULAR HGB CONC 28.8 g/dL (32.0-36.0); MEAN CORPUSCULAR VOLUME 81.8 fL (80.0-94.0); MEAN PLATELET VOLUME 9.2 fL (7.4-11.4); MONOCYTES # (AUTO) 0.9 10^3/uL (0.0-1.0); MONOCYTES % (AUTO) 7.2 %; NEUTROPHILS % (AUTO) 80.2 %; PLT - PLATELET COUNT 91 10^3/uL (130-450); RED BLOOD COUNT 3.74 10^6/uL (4.70-6.10); RED CELL DISTRIBUTION WIDTH 19.3 % (12.0-15.0); WHITE BLOOD COUNT 12.5 x10^3/uL (4.8-10.8)
[2023-12-22 08:18] LABS: SLIDE REVIEW? Indicated
[2023-12-22] MEDS: HALOPERIDOL 5 MG/ML VIAL IVP STA (08:19)
[2023-12-22 08:20] LABS: ALBUMIN 2.8 g/dL (3.2-5.5); ALBUMIN/GLOBULIN RATIO 0.5 (1.0-2.2); ALKALINE PHOSPHATASE 90 IU/L (42-121); ALT ALANINE AMINOTRANSFERASE 11 IU/L (10-60); AST ASPARTATE AMINOTRANSFERASE 17 IU/L (10-42); BILIRUBIN,TOTAL 0.8 mg/dL (0.2-1.0); BUN - BLOOD UREA NITROGEN 21 mg/dL (6-20); CALCIUM 9.3 mg/dL (8.5-10.3); CARBON DIOXIDE - CO2 17 mmol/L (21-32); CHLORIDE 116 mmol/L (101-111); CK- CREATINE KINASE 129 IU/L (30-223); CREATININE 1.5 mg/dL (0.6-1.3); ETOH - ETHANOL < 10.0 mg/dL; GFR - MDRD 45 (>89); GLUCOSE 265 mg/dL (74-104); PLATELET ESTIMATE, MANUAL DECREASED (<130,000) (NORMAL); POTASSIUM 3.6 mmol/L (3.5-4.5); SODIUM 144 mmol/L (135-145); TOTAL PROTEIN 7.9 g/dL (6.4-8.9)
[2023-12-22 08:21] LABS: PLATELET MORPHOLOGY NORMAL APPEARANCE (NORMAL)
[2023-12-22 08:24] LABS: WBC MORPHOLOGY (MULTIPLE) NORMAL APPEARANCE (NORMAL)
[2023-12-22 08:27] LABS: BILIRUBIN,URINE NEGATIVE (NEGATIVE); GLUCOSE, URINE (UA) NEGATIVE (NEGATIVE); KETONES,URINE (UA) 15 mg/dL (NEGATIVE); LEUKOCYTE ESTERASE, URINE SMALL (NEGATIVE); NITRITE,URINE POSITIVE (NEGATIVE); OCCULT BLOOD,URINE LARGE (NEGATIVE); PROTEIN,URINE >=300 mg/dL (NEGATIVE); UROBILINOGEN,URINE 0.2 (NORMAL) E.U./dL (NORMAL)
[2023-12-22 08:37] LABS: BACTERIA,URINE Rare /HPF (None Seen); CLARITY,URINE SL. CLOUDY (CLEAR); RBC,URINE TNTC /HPF (0-5); SQUAMOUS EPITHELIAL CELL,UR RARE Squamous (<= Few); WBC,URINE >25 /HPF (0-3)
[2023-12-22 08:40] LABS: AMPHETAMINE SCREEN,URINE NEGATIVE (NEGATIVE); BARBITURATE SCREEN,UR NEGATIVE (NEGATIVE); BENZODIAZEPINES SCREEN, URINE POSITIVE (NEGATIVE); BUPRENORPHINE SCREEN, URINE NEGATIVE (NEGATIVE); COCAINE SCREEN URINE NEGATIVE (NEGATIVE); METHADONE SCREEN, URINE NEGATIVE (NEGATIVE); METHAMPHETAMINES SCREEN, URINE NEGATIVE (NEGATIVE); OPIATE SCREEN, URINE POSITIVE (NEGATIVE); OXYCODONE SCREEN, URINE NEGATIVE (NEGATIVE); THC CANNABINOID SCREEN, URINE NEGATIVE (NEGATIVE); TRICYCLIC ANTIDEPRESSANT,URINE NEGATIVE (NEGATIVE)
[2023-12-22] MEDS: MORPHINE 2 MG/ML CARPUJECT IVP STA (09:08)
[2023-12-22] MEDS: OLANZapine ODT 5 MG TABLET TL STA (09:14)
[2023-12-22] MEDS: LORazepam 1 MG TABLET PO STA (09:14)
[2023-12-22 09:41] VITALS: O2SAT 95
[2023-12-22] MEDS: MORPHINE SOL 10 MG/0.5 ML ORAL SYRINGE PO SCH (10:01)
[2023-12-22 11:24] VITALS: BP 140/65
--- NOTE | 2023-12-22 13:30 | PROVIDER PROGRESS NOTE ---
Progress Note Pt returned to the ED today d/t the pharmacy not filling prescriptions for comfort meds. I spoke to [facility] and they agreed to take him back as long as the medications were received. Recommended morphine 10 mg QID and 5mg q4 PRN, lorazepam 2 mg po q4 scheduled and 0.5 q6 prn, and olanzepine 5 mg TID to manage his ongoing sxs. He is admitting to Hospice on 12/24/23. Pt returned to the facility before meds were received. BREANNE Ennis, coordinated w/[facility] pharmacy and morphine and olanzepine have been received. Lorazepam still not ready. talent director of [facility] to coordinate w/pharmacy to get the lorazepam filled. Faxed new medication list to facility.
== END 2023-12-22 11:15 | disposition home or self-care (01) ==
LOC: EDUNIT# → ED 07:22
DX: G93.40 Encephalopathy, unspecified (principal); F13.239 Sedative, hypnotic or anxiolytic dependence with withdrawal, unspecified; D64.9 Anemia, unspecified; D72.829 Elevated white blood cell count, unspecified; R82.81 Pyuria; E11.22 Type 2 diabetes mellitus with diabetic chronic kidney disease; I12.9 Hypertensive chronic kidney disease with stage 1 through stage 4 chronic kidney disease, or unspecified chronic kidney disease; N18.9 Chronic kidney disease, unspecified; D63.1 Anemia in chronic kidney disease; E78.00 Pure hypercholesterolemia, unspecified; J44.9 Chronic obstructive pulmonary disease, unspecified; E11.42 Type 2 diabetes mellitus with diabetic polyneuropathy; Z79.899 Other long term (current) drug therapy; Z79.4 Long term (current) use of insulin
CPT/HCPCS: 36415; 80053; 80306; 81001; 82140; 82550; 83605; 85025; 87040; 87086; 93005; 96374; 96375; 99284; 99285; A9270; G0480; J2060; J8499; 82077; 87077; 87181

== ENCOUNTER 2023-12-22 11:19 | Outpatient (CLI) | payer MEDICARE, OTHER | END 2023-12-22 23:59 | disposition home or self-care (01) | LOC: EMS 11:19 | PROVIDERS: ATTEND Emergency Medicine | DX: G93.40 Encephalopathy, unspecified (principal); R40.20 Unspecified coma | CPT/HCPCS: A0425; A0428 ==

== ENCOUNTER 2023-12-22 21:01 | Outpatient (CLI) | payer MEDICARE, OTHER | END 2023-12-22 23:59 | disposition EMS.NT | LOC: EMS 21:01 | DX: Z03.89 Encounter for observation for other suspected diseases and conditions ruled out (principal) ==

== ENCOUNTER 2023-12-23 00:19 | Outpatient (CLI) | payer MEDICARE, OTHER | END 2023-12-23 23:59 | disposition EMS.NT | LOC: EMS 00:19 | DX: Z03.89 Encounter for observation for other suspected diseases and conditions ruled out (principal); Z66 Do not resuscitate ==